=== PATIENT | female | born 1945 | race Caucasian/White ===

== ENCOUNTER → 2016-06-10 | Outpatient (CLI) | payer MEDICARE ==
--- NOTE | 2016-06-10 14:58 | XR ---
EXAMINATION TYPE: XR chest 2V DATE OF EXAM: 06/10/2016 10:00 AM COMPARISON: NONE HISTORY: Pulmonary embolism, COPD, preop TECHNIQUE: Frontal and lateral views of the chest are obtained. FINDINGS: There is no focal air space opacity, pleural effusion, or pneumothorax seen. The cardiac silhouette size is within normal limits. Patient is rotated. Chronic left pleural reaction. Surgical clips in the left upper quadrant. The osseous structures are intact. IMPRESSION: No acute cardiopulmonary process.
== END | disposition home or self-care (01) ==
LOC: RADXRMAIN 09:38
PROVIDERS: ATTEND Internal Medicine
DX: Z86.711 Personal history of pulmonary embolism (principal)
CPT/HCPCS: 71020

== ENCOUNTER → 2016-08-24 | Outpatient (CLI) | payer MEDICARE ==
[~2016-08-24] MED LIST: DENOSUMAB 60 MG/ML 1 ML SYRINGE SQ ONE
[2016-08-24 09:02] VITALS: BP 120/48; PULSE 84; RESP 16; TEMP 97.8
== END ==
LOC: PROCWHC3 08:32
PROVIDERS: ATTEND Family Medicine
DX: M81.0 Age-related osteoporosis without current pathological fracture (principal)
CPT/HCPCS: 96372; J0897

== ENCOUNTER 2016-09-20 11:17 | Inpatient (IN) | payer MEDICARE ==
--- NOTE | 2016-09-20 12:11 | ED ---
General Adult HPI - General Chief complaint: Weakness Stated complaint: KOREY Time Seen by Provider: 09/20/16 11:30 Source: EMS, RN notes reviewed Mode of arrival: EMS Limitations: no limitations - History of Present Illness Initial comments: This is a 71-year-old female presents emergency Department with her because she has been getting weaker and weaker and over the last few days she has been unable to hold herself up and she slide to the floor. Patient also is occasionally confused about what day it is according to which is something he believes to be a recent development. Patient has no complaints of headache she denies any numbness or focal weakness. Patient denies any chest pain palpitations difficulty breathing or shortness of breath. Patient denies abdominal pain. Patient denies nausea vomiting diarrhea. Patient denies any injury with any of her collapses. Patient states she always to slice out of the chair and is unable to get up. Patient denies any lightheadedness dizziness or near syncopal episode. Patient denies any recent injury or trauma. states the main reason she is coming in is because she is just getting weaker and sleeping all the time and again being somewhat confused. - Related Data Home Medications Medication Instructions Recorded Confirmed Aspirin 81 mg PO DAILY 10/09/13 09/20/16 clonazePAM [KlonoPIN] 0.5 mg PO BID PRN 10/09/13 09/20/16 sitaGLIPtin [Januvia] 100 mg PO DAILY 10/09/13 09/20/16 Buprenorphine [Butrans 15 MCG/HR] 1 patch TRANSDERM TH 11/27/15 09/20/16 DULoxetine HCL [Cymbalta] 30 mg PO DAILY 11/27/15 09/20/16 Furosemide [Lasix] 40 mg PO DAILY 11/27/15 09/20/16 Pregabalin [Lyrica] 200 mg PO BID 11/27/15 09/20/16 rOPINIRole HCL [Requip] 1 mg PO HS 11/27/15 09/20/16 Insulin Glargine [Lantus] 70 unit SQ HS 11/28/15 09/20/16 Calcium Carbonate [Calcium] 600 mg PO AC-LUNCH 05/12/16 09/20/16 Insulin Lispro [humaLOG Kwikpen] See Protocol SQ AC-TID 05/12/16 09/20/16 Multivits-Min/Iron/FA/Lutein 1 tab PO HS 05/12/16 09/20/16 [Centrum Silver Women Tablet] Potassium Chloride [Klor-Con 10 meq PO DAILY 05/12/16 09/20/16 Sprinkle] Rivaroxaban [Xarelto] 20 mg PO HS 05/12/16 09/20/16 Sennosides-Docusate Sodium 2 tab PO HS 05/12/16 09/20/16 [Senokot-S] Allopurinol [Zyloprim] 100 mg PO DAILY 09/20/16 09/20/16 Ciprofloxacin HCl [Cipro] 500 mg PO BID 09/20/16 09/20/16 Levothyroxine Sodium [Synthroid] 100 mcg PO DAILY 09/20/16 09/20/16 Metoprolol Succinate [Toprol XL] 50 mg PO DAILY 09/20/16 09/20/16 Omeprazole [PriLOSEC] 20 mg PO DAILY 09/20/16 09/20/16 Allergies Allergy/AdvReac Type Severity Reaction Status Date / Time iodine Allergy Unknown Verified 09/20/16 11:29 Review of Systems ROS Statement: Those systems with pertinent positive or pertinent negative responses have been documented in the HPI. ROS Other: All systems not noted in ROS Statement are negative. 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 She was a tobacco smoker and stopped several years ago. She denies any significant alcohol or recreational drug use. Used to work in. retail sales. She has no experience her extensive travels. No animals in the home.. Smoking Status: Former smoker Past Alcohol Use History: None Reported Past Drug Use History: None Reported - Past Family History Son(s) Additional Family Medical History / Comment(s): She relates that her parents of old age her mother was about 90 father was 88, without sniffing and medical troubles. She does relate that her son committed suicide but her daughter is quite healthy. General Exam - General Exam Comments Initial Comments: GENERAL: Patient is well-developed and well-nourished. Patient is nontoxic and well- hydrated and is in no acute distress. ENT: Neck is soft and supple. No significant lymphadenopathy is noted. Oropharynx is clear. Moist mucous membranes. Neck has full range of motion without eliciting any pain. EYES: The sclera were anicteric and conjunctiva were pink and moist. Extraocular movements were intact and pupils were equal round and reactive to light. Eyelids were unremarkable. PULMONARY: Unlabored respirations. Good breath sounds bilaterally. No audible rales rhonchi or wheezing was noted. CARDIOVASCULAR: There is a regular rate and rhythm without any murmurs gallops or rubs. ABDOMEN: Patient is morbidly obese abdomen is nontender.. No palpable organomegaly was noted. There is no palpable pulsatile mass. SKIN: Skin is clear with no lesions or rashes and otherwise unremarkable. NEUROLOGIC: Patient is alert and oriented x3. Cranial nerves II through XII are grossly intact. Motor and sensory are also intact. Normal speech, volume and content. Symmetrical smile. MUSCULOSKELETAL: Normal extremities with adequate strength and full range of motion. No lower extremity swelling or edema. No calf tenderness. LYMPHATICS: No significant lymphadenopathy is noted PSYCHIATRIC: Normal psychiatric evaluation. Limitations: no limitations Course Vital Signs 09/20/16 09/20/16 09/20/16 11:26 13:29 14:00 Temperature 97.9 F Pulse Rate 89 86 87 Respiratory 20 18 16 Rate Blood Pressure 116/53 128/58 122/63 O2 Sat by Pulse 99 93 L 93 L Oximetry Medical Decision Making - Medical Decision Making EKG shows normal sinus rhythm at 90 bpm TN interval is on a 64 QRS is 102 QT interval 400 QTC is 489. Patient's EKG shows no ST segment elevation or depression or T wave abnormalities are noted Chest x-ray shows right upper lobe pneumonia. When I spoke with the patient about the pneumonia patient stated that she was coughing quite a bit lately. I placed the patient on Levaquin for the pneumonia - Lab Data Result diagrams: 09/20/16 12:48 04/18/17 12:48 Lab Results 09/20/16 09/20/16 09/20/16 Range/Units 12:48 12:48 12:48 WBC 15.5 H (3.8-10.6) k/uL RBC 4.54 (3.80-5.40) m/uL Hgb 11.4 (11.4-16.0) gm/dL Hct 39.3 (34.0-46.0) % MCV 86.7 (80.0-100.0) fL MCH 25.1 (25.0-35.0) pg MCHC 29.0 L (31.0-37.0) g/dL RDW 20.6 H (11.5-15.5) % Plt Count 268 (150-450) k/uL Neutrophils % 70 % Lymphocytes % 18 % Monocytes % 5 % Eosinophils % 5 % Basophils % 1 % Neutrophils # 10.8 H (1.3-7.7) k/uL Lymphocytes # 2.7 (1.0-4.8) k/uL Monocytes # 0.7 (0-1.0) k/uL Eosinophils # 0.8 H (0-0.7) k/uL Basophils # 0.1 (0-0.2) k/uL Hypochromasia Marked Poikilocytosis Slight Anisocytosis Moderate Microcytosis Slight PT 13.6 H (9.0-12.0) sec INR 1.4 (<1.1) APTT 31.9 H (22.0-30.0) sec Sodium 140 (137-145) mmol/L Potassium 3.7 (3.5-5.1) mmol/L Chloride 105 (98-107) mmol/L Carbon Dioxide 28 (22-30) mmol/L Anion Gap 7 mmol/L BUN 14 (7-17) mg/dL Creatinine 0.92 (0.52-1.04) mg/dL Est GFR (MDRD) Af Amer >60 (>60 ml/min/1.73 sqM) Est GFR (MDRD) Non-Af >60 (>60 ml/min/1.73 sqM) Glucose 235 H (74-99) mg/dL Plasma Lactic Acid Gee (0.7-2.0) mmol/L Calcium 9.1 (8.4-10.2) mg/dL Magnesium 2.5 H (1.6-2.3) mg/dL Total Bilirubin 0.8 (0.2-1.3) mg/dL AST 54 H (14-36) U/L ALT 36 (9-52) U/L Alkaline Phosphatase 93 (38-126) U/L Total Creatine Kinase (30-135) U/L CK-MB (CK-2) (0.0-2.4) ng/mL CK-MB (CK-2) Rel Index Troponin I (0.000-0.034) ng/mL NT-Pro-B Natriuret Pep pg/mL Total Protein 6.6 (6.3-8.2) g/dL Albumin 3.3 L (3.5-5.0) g/dL TSH 1.120 (0.465-4.680) mIU/L Free T4 1.70 (0.78-2.19) ng/dL Urine Color Urine Appearance (Clear) Urine pH (5.0-8.0) Ur Specific Belle (1.001-1.035) Urine Protein (Negative) Urine Glucose (UA) (Negative) Urine Ketones (Negative) Urine Blood (Negative) Urine Nitrite (Negative) Urine Bilirubin (Negative) Urine Urobilinogen (<2.0) mg/dL Ur Leukocyte Esterase (Negative) Urine Opiates Screen (NotDetected) Ur Oxycodone Screen (NotDetected) Urine Methadone Screen (NotDetected) Ur Propoxyphene Screen (NotDetected) Ur Barbiturates Screen (NotDetected) U Tricyclic Antidepress (NotDetected) Ur Phencyclidine Scrn (NotDetected) Ur Amphetamines Screen (NotDetected) U Methamphetamines Scrn (NotDetected) U Benzodiazepines Scrn (NotDetected) Urine Cocaine Screen (NotDetected) U Marijuana (THC) Screen (NotDetected) Serum Alcohol <10 mg/dL 09/20/16 09/20/16 09/20/16 Range/Units 12:48 12:48 12:48 WBC (3.8-10.6) k/uL RBC (3.80-5.40) m/uL Hgb (11.4-16.0) gm/dL Hct (34.0-46.0) % MCV (80.0-100.0) fL MCH (25.0-35.0) pg MCHC (31.0-37.0) g/dL RDW (11.5-15.5) % Plt Count (150-450) k/uL Neutrophils % % Lymphocytes % % Monocytes % % Eosinophils % % Basophils % % Neutrophils # (1.3-7.7) k/uL Lymphocytes # (1.0-4.8) k/uL Monocytes # (0-1.0) k/uL Eosinophils # (0-0.7) k/uL Basophils # (0-0.2) k/uL Hypochromasia Poikilocytosis Anisocytosis Microcytosis PT (9.0-12.0) sec INR (<1.1) APTT (22.0-30.0) sec Sodium (137-145) mmol/L Potassium (3.5-5.1) mmol/L Chloride (98-107) mmol/L Carbon Dioxide (22-30) mmol/L Anion Gap mmol/L BUN (7-17) mg/dL Creatinine (0.52-1.04) mg/dL Est GFR (MDRD) Af Amer (>60 ml/min/1.73 sqM) Est GFR (MDRD) Non-Af (>60 ml/min/1.73 sqM) Glucose (74-99) mg/dL Plasma Lactic Acid Gee 1.2 (0.7-2.0) mmol/L Calcium (8.4-10.2) mg/dL Magnesium (1.6-2.3) mg/dL Total Bilirubin (0.2-1.3) mg/dL AST (14-36) U/L ALT (9-52) U/L Alkaline Phosphatase (38-126) U/L Total Creatine Kinase 436 H (30-135) U/L CK-MB (CK-2) 1.7 (0.0-2.4) ng/mL CK-MB (CK-2) Rel Index 0.4 Troponin I <0.012 (0.000-0.034) ng/mL NT-Pro-B Natriuret Pep 669 pg/mL Total Protein (6.3-8.2) g/dL Albumin (3.5-5.0) g/dL TSH (0.465-4.680) mIU/L Free T4 (0.78-2.19) ng/dL Urine Color Urine Appearance (Clear) Urine pH (5.0-8.0) Ur Specific Belle (1.001-1.035) Urine Protein (Negative) Urine Glucose (UA) (Negative) Urine Ketones (Negative) Urine Blood (Negative) Urine Nitrite (Negative) Urine Bilirubin (Negative) Urine Urobilinogen (<2.0) mg/dL Ur Leukocyte Esterase (Negative) Urine Opiates Screen (NotDetected) Ur Oxycodone Screen (NotDetected) Urine Methadone Screen (NotDetected) Ur Propoxyphene Screen (NotDetected) Ur Barbiturates Screen (NotDetected) U Tricyclic Antidepress (NotDetected) Ur Phencyclidine Scrn (NotDetected) Ur Amphetamines Screen (NotDetected) U Methamphetamines Scrn (NotDetected) U Benzodiazepines Scrn (NotDetected) Urine Cocaine Screen (NotDetected) U Marijuana (THC) Screen (NotDetected) Serum Alcohol mg/dL 09/20/16 Range/Units 13:50 WBC (3.8-10.6) k/uL RBC (3.80-5.40) m/uL Hgb (11.4-16.0) gm/dL Hct (34.0-46.0) % MCV (80.0-100.0) fL MCH (25.0-35.0) pg MCHC (31.0-37.0) g/dL RDW (11.5-15.5) % Plt Count (150-450) k/uL Neutrophils % % Lymphocytes % % Monocytes % % Eosinophils % % Basophils % % Neutrophils # (1.3-7.7) k/uL Lymphocytes # (1.0-4.8) k/uL Monocytes # (0-1.0) k/uL Eosinophils # (0-0.7) k/uL Basophils # (0-0.2) k/uL Hypochromasia Poikilocytosis Anisocytosis Microcytosis PT (9.0-12.0) sec INR (<1.1) APTT (22.0-30.0) sec Sodium (137-145) mmol/L Potassium (3.5-5.1) mmol/L Chloride (98-107) mmol/L Carbon Dioxide (22-30) mmol/L Anion Gap mmol/L BUN (7-17) mg/dL Creatinine (0.52-1.04) mg/dL Est GFR (MDRD) Af Amer (>60 ml/min/1.73 sqM) Est GFR (MDRD) Non-Af (>60 ml/min/1.73 sqM) Glucose (74-99) mg/dL Plasma Lactic Acid Gee (0.7-2.0) mmol/L Calcium (8.4-10.2) mg/dL Magnesium (1.6-2.3) mg/dL Total Bilirubin (0.2-1.3) mg/dL AST (14-36) U/L ALT (9-52) U/L Alkaline Phosphatase (38-126) U/L Total Creatine Kinase (30-135) U/L CK-MB (CK-2) (0.0-2.4) ng/mL CK-MB (CK-2) Rel Index Troponin I (0.000-0.034) ng/mL NT-Pro-B Natriuret Pep pg/mL Total Protein (6.3-8.2) g/dL Albumin (3.5-5.0) g/dL TSH (0.465-4.680) mIU/L Free T4 (0.78-2.19) ng/dL Urine Color Yellow Urine Appearance Clear (Clear) Urine pH 7.0 (5.0-8.0) Ur Specific Belle 1.007 (1.001-1.035) Urine Protein Negative (Negative) Urine Glucose (UA) Negative (Negative) Urine Ketones Negative (Negative) Urine Blood Negative (Negative) Urine Nitrite Negative (Negative) Urine Bilirubin Negative (Negative) Urine Urobilinogen <2.0 (<2.0) mg/dL Ur Leukocyte Esterase Negative (Negative) Urine Opiates Screen Not Detected (NotDetected) Ur Oxycodone Screen Not Detected (NotDetected) Urine Methadone Screen Not Detected (NotDetected) Ur Propoxyphene Screen Not Detected (NotDetected) Ur Barbiturates Screen Not Detected (NotDetected) U Tricyclic Antidepress Not Detected (NotDetected) Ur Phencyclidine Scrn Not Detected (NotDetected) Ur Amphetamines Screen Not Detected (NotDetected) U Methamphetamines Scrn Not Detected (NotDetected) U Benzodiazepines Scrn Not Detected (NotDetected) Urine Cocaine Screen Not Detected (NotDetected) U Marijuana (THC) Screen Not Detected (NotDetected) Serum Alcohol mg/dL Disposition Clinical Impression: Pneumonia, Generalized weakness Disposition: ADMITTED IP TO THIS HOSP Referrals: Patric Richard MD [Primary Care Provider] - 1-2 days Time of Disposition: 15:10
--- NOTE | 2016-09-20 13:19 | CT ---
EXAMINATION TYPE: CT brain wo con DATE OF EXAM: 09/20/2016 1:12 PM COMPARISON: NONE HISTORY: Frequent falls CT DLP: [address] of the brain was performed. The ventricles, basal cisterns and sulci overlying the cerebral convexities demonstrate mild enlargem ent. There is no evidence for intracranial hemorrhage or sulcal effacement. There is decreased attenuation about the periventricular white matter and deep white matter of both c erebral hemispheres, compatible with chronic small vessel ischemia. Differential diagnosis does inclu de demyelination. No mass effects are seen.No midline shift. Osseous calvarium is intact. If symptoms persist consider MRI. IMPRESSION: 1. Age related atrophic and chronic small vessel ischemic change without acute intracranial process s een at this time.
[2016-09-20 13:35] LABS: ALT 36 U/L (9-52); AST 54 U/L (14-36); Alcohol <10 mg/dL; Alkaline Phosphatase 93 U/L (38-126); Anion Gap 7 mmol/L; Blood Urea Nitrogen 14 mg/dL (7-17); Calcium 9.1 mg/dL (8.4-10.2); Carbon Dioxide 28 mmol/L (22-30); Chloride 105 mmol/L (98-107); Glucose 235 mg/dL (74-99); Magnesium 2.5 mg/dL (1.6-2.3); Non-African American GFR(MDRD) >60 (>60 ml/min/1.73 sqM); Potassium 3.7 mmol/L (3.5-5.1); Sodium 140 mmol/L (137-145); Total Bilirubin 0.8 mg/dL (0.2-1.3); Total Protein 6.6 g/dL (6.3-8.2)
--- NOTE | 2016-09-20 13:38 | XR ---
EXAMINATION TYPE: XR chest 2V DATE OF EXAM: 09/20/2016 1:13 PM COMPARISON: Prior chest x-ray 10 June 2016 HISTORY: Weakness, COPD TECHNIQUE: Frontal and lateral views of the chest are obtained. FINDINGS: Heart size may be at least in part accentuated by rotation. Interstitium is increased. The re is no evident pneumothorax or pleural effusion. Central vascularity is mildly prominent. Increased lung volumes may be indicative of underlying COPD. Increased density somewhat greater in the right u pper lobe, there may be associated airspace disease. IMPRESSION: Findings could represent congestive heart failure, pneumonia is not excluded. Follow-up is recommended.
[2016-09-20 13:42] LABS: Creatine Kinase 436 U/L (30-135)
[2016-09-20 13:50] LABS: INR 1.4 (<1.1); Partial Thromboplastin Time 31.9 sec (22.0-30.0); Prothrombin Time 13.6 sec (9.0-12.0)
[2016-09-20 13:54] LABS: Creatine Kinase MB 1.7 ng/mL (0.0-2.4); Troponin I <0.012 ng/mL (0.000-0.034)
[2016-09-20 14:04] LABS: Appearance,Urine Clear (Clear); Bilirubin,Urine Negative (Negative); Glucose,Urine (UA) Negative (Negative); Ketones,Urine Negative (Negative); Leukocyte Esterase,Urine Negative (Negative); Nitrite,Urine Negative (Negative); Protein,Urine Negative (Negative); Specific Gravity,Urine 1.007 (1.001-1.035); UA Billing (MACRO vs. MICRO) CHEM; Urobilinogen,Urine <2.0 mg/dL (<2.0)
[2016-09-20 14:11] LABS: Anisocytosis Moderate; Basophils # (A) 0.1 k/uL (0-0.2); Basophils % (A) 1 %; CH 24.8; CHCM 28.8; Eosinophils # (A) 0.8 k/uL (0-0.7); Eosinophils % (A) 5 %; HCT 39.3 % (34.0-46.0); HDW 3.71; HGB 11.4 gm/dL (11.4-16.0); Hypochromasia Marked; Luc # (Auto) 0.37; Luc % (Auto) 2; Lymphocytes # (A) 2.7 k/uL (1.0-4.8); Lymphocytes % (A) 18 %; MCH 25.1 pg (25.0-35.0); MCV 86.7 fL (80.0-100.0); Mean Platelet Volume 8.5; Microcytosis Slight; Monocytes # (A) 0.7 k/uL (0-1.0); Monocytes % (A) 5 %; Neutrophils # (A) 10.8 k/uL (1.3-7.7); Neutrophils % (A) 70 %; Poikilocytosis Slight; RBC 4.54 m/uL (3.80-5.40); RDW 20.6 % (11.5-15.5); WBC 15.5 k/uL (3.8-10.6); WBC (Perox) 15.39
[2016-09-20] MEDS ORDERED: LEVOFLOXACIN 750MG-D5W PMX 750 MG in DEXTROSE/WATER 1 150ML.BAG IVPB STA (15:04)
[2016-09-20] MEDS ORDERED: PNEUMONIA PROTOCOL UTILIZED 1 EACH MISC PO PRN (15:11)
[2016-09-20 15:58] LABS: Glucose,Whole Blood 177 mg/dL (75-99)
[2016-09-20 16:57] LABS: Glucose,Whole Blood 177 mg/dL (75-99)
[2016-09-20] MEDS: INSULIN LISPRO (humaLOG) 300 UNIT/3 ML VIAL SQ SCH ×2 (17:36→23:13)
[2016-09-20 20:04] VITALS: BMI 51.3
[2016-09-20 20:16] LABS: Hemoglobin A1C 9.3 % (4.2-6.1)
[2016-09-20 21:00] LABS: Glucose,Whole Blood 210 mg/dL (75-99)
[2016-09-20] MEDS ORDERED: LEVOFLOXACIN 750MG-D5W PMX 750 MG in DEXTROSE/WATER 1 150ML.BAG IVPB SCH (21:00)
[2016-09-20] MEDS: INSULIN GLARGINE 100 UNIT/ML 10 ML VIAL SQ SCH (23:14)
[2016-09-20] MEDS: SENNOSIDES-DOCUSATE SODIUM 1 EACH TAB PO SCH (23:15)
[2016-09-20] MEDS: MULTIVITAMINS, THERA 1 EACH TAB PO SCH (23:15)
[2016-09-20] MEDS: PREGABALIN 100 MG CAP PO SCH (23:15)
[2016-09-20] MEDS: RIVAROXABAN 10 MG TAB PO SCH (23:16)
[2016-09-21] MEDS: LEVOTHYROXINE 100 MCG TAB PO SCH (05:50)
[2016-09-21 07:26] LABS: Glucose,Whole Blood 139 mg/dL (75-99)
[2016-09-21] MEDS: clonazePAM 0.5 MG TAB PO PRN (07:44)
[2016-09-21] MEDS: PANTOPRAZOLE 40 MG TABLET PO SCH (07:45)
[2016-09-21] MEDS: LINAGLIPTIN 5 MG TABLET PO SCH (07:45)
[2016-09-21] MEDS: DULoxetine HCL 30 MG CAPSULE.DR PO SCH (07:45)
[2016-09-21] MEDS: PREGABALIN 100 MG CAP PO SCH ×2 (07:45→21:29)
[2016-09-21] MEDS: ASPIRIN 81 MG CHEW PO SCH (07:45)
[2016-09-21] MEDS: ALLOPURINOL 100 MG TAB PO SCH (07:46)
[2016-09-21] MEDS: INSULIN LISPRO (humaLOG) 300 UNIT/3 ML VIAL SQ SCH ×4 (07:46→21:28)
[2016-09-21] MEDS: POTASSIUM CHLORIDE ER 10 MEQ TAB.ER.PRT PO SCH (07:48)
[2016-09-21] MEDS: METOPROLOL SUCCINATE (ER) 50 MG TAB.ER.24H PO SCH (07:48)
[2016-09-21] MEDS ORDERED: FUROSEMIDE 40 MG TAB PO SCH (09:00)
--- NOTE | 2016-09-21 11:28 | XR ---
EXAMINATION TYPE: XR chest 2V DATE OF EXAM: 09/21/2016 9:11 AM COMPARISON: Prior chest x-ray 20 September 2016 HISTORY: Pneumonia, COPD, weakness TECHNIQUE: Frontal and lateral views of the chest are obtained. FINDINGS: Findings are similar. Patient is rotated. There may be airspace disease right upper lobe. Heart is likely enlarged. No pneumothorax or pleural effusion. IMPRESSION: Exam is technically limited likely due to patient body habitus. Correlate for right uppe r lobe pneumonia, there may be a component of pulmonary venous hypertension and interstitial edema. F ollow-up recommended.
[2016-09-21 11:36] LABS: Glucose,Whole Blood 229 mg/dL (75-99)
[2016-09-21] MEDS: CALCIUM CARB-VIT D 500MG-200UN 1 EACH TAB PO SCH (12:54)
--- NOTE | 2016-09-21 15:22 | P.CNPUL ---
History of Present Illness Consult date: 09/21/16 Reason for consult: dyspnea, cough, pneumonia Chief complaint: Weakness, pneumonia History of present illness: This is a 71-year-old obese female who we know well from our practice. She typically sees Dr. Rosas in our office. The patient comes in because of weakness. She apparently been falling at home. Has significant bruising to the right upper extremity. In addition, she doesn't admit to difficulty breathing. No fever no chills. No nausea or vomiting. No chest pain or chest discomfort. In the emergency room she was evaluated and found to have a possible right upper lobe pneumonia. She is feeling a bit better today. Not coughing up any phlegm. No fever no chills. No chest pain. Her big complaint was that she's been falling at home and has significant bruising and ecchymosis to the right upper extremity. Review of Systems A 12 point review of system is positive for some shortness of breath. Some cough. Not producing any phlegm. Mild wheezing. The big issue is some weakness and falling. She does have some bruising and ecchymosis to the right upper extremity. 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 She was a tobacco smoker and stopped several years ago. She denies any significant alcohol or recreational drug use. Used to work in. retail sales. She has no experience her extensive travels. No animals in the home.. Smoking Status: Former smoker Past Alcohol Use History: None Reported Past Drug Use History: None Reported - Past Family History Son(s) Family Medical History: Unable to Obtain Additional Family Medical History / Comment(s): She relates that her parents of old age her mother was about 90 father was 88, without sniffing and medical troubles. She does relate that her son committed suicide but her daughter is quite healthy. Medications and Allergies Home Medications Medication Instructions Recorded Confirmed Type Aspirin 81 mg PO DAILY 10/09/13 09/20/16 History clonazePAM [KlonoPIN] 0.5 mg PO BID PRN 10/09/13 09/20/16 History sitaGLIPtin [Januvia] 100 mg PO DAILY 10/09/13 09/20/16 History Buprenorphine [Butrans 15 MCG/HR] [facility] 11/27/15 09/20/16 History DULoxetine HCL [Cymbalta] 30 mg PO DAILY 11/27/15 09/20/16 History Furosemide [Lasix] 40 mg PO DAILY 11/27/15 09/20/16 History Pregabalin [Lyrica] 200 mg PO BID 11/27/15 09/20/16 History rOPINIRole HCL [Requip] 1 mg PO HS 11/27/15 09/20/16 History Insulin Glargine [Lantus] 70 unit SQ HS 11/28/15 09/20/16 History Calcium Carbonate [Calcium] 600 mg PO AC-LUNCH 05/12/16 09/20/16 History Insulin Lispro [humaLOG Kwikpen] See Protocol SQ AC-TID 05/12/16 09/20/16 History Multivits-Min/Iron/FA/Lutein 1 tab PO HS 05/12/16 09/20/16 History [Centrum Silver Women Tablet] Potassium Chloride [Klor-Con 10 meq PO DAILY 05/12/16 09/20/16 History Sprinkle] Rivaroxaban [Xarelto] 20 mg PO HS 05/12/16 09/20/16 History Sennosides-Docusate Sodium 2 tab PO HS 05/12/16 09/20/16 History [Senokot-S] Allopurinol [Zyloprim] 100 mg PO DAILY 09/20/16 09/20/16 History Ciprofloxacin HCl [Cipro] 500 mg PO BID 09/20/16 09/20/16 History Levothyroxine Sodium [Synthroid] 100 mcg PO DAILY 09/20/16 09/20/16 History Metoprolol Succinate [Toprol XL] 50 mg PO DAILY 09/20/16 09/20/16 History Omeprazole [PriLOSEC] 20 mg PO DAILY 09/20/16 09/20/16 History Allergies Allergy/AdvReac Type Severity Reaction Status Date / Time iodine Allergy Unknown Verified 09/20/16 11:29 Physical Exam Osteopathic Statement: *. No significant issues noted on an osteopathic structural exam other than those noted in the History and Physical/Consult. Vitals: Vital Signs Temp Pulse Pulse Resp BP BP BP 09/21/16 15:00 97.6 F 101 H 18 109/58 09/21/16 08:00 18 09/21/16 07:00 97.4 F L 104 H 18 99/53 09/20/16 23:00 96.2 F L 100 19 112/62 09/20/16 16:52 99/59 09/20/16 16:50 16 09/20/16 16:37 97.0 F L 86 16 81/53 09/20/16 15:20 97.9 F 87 16 106/54 Pulse Ox 09/21/16 15:00 91 L 09/21/16 08:00 09/21/16 07:00 93 L 09/20/16 23:00 91 L 09/20/16 16:52 09/20/16 16:50 09/20/16 16:37 90 L 09/20/16 15:20 94 L Intake and Output 09/21/16 09/21/16 09/21/16 06:59 14:59 22:59 Intake Total 240 Output Total 250 Balance -10 Intake: Oral 240 Output: Urine 250 Other: Voiding Method Bedside Commode # Voids 1 Weight 119.295 kg Patient Weight 09/22/16 06:59 Weight 119.295 kg No acute distress, oriented 3. HEENT examination is grossly unremarkable. Membranes are moist. No oral lesions. Neck supple. Full range of motion. No adenopathy or thyromegaly. Cardiovascular examination reveals regular rhythm rate. Heart sounds are distant. No murmur. S1 and S2 normal. Lungs reveal some expiratory wheezes. No crackles. No rhonchi. Breath sounds are diminished. Abdomen is obese. Bowel sounds are heard. Extremities are intact. Brief neurologic examination nonfocal. Skin without rash or lesions. Results - Laboratory Findings CBC and BMP: 09/20/16 12:48 09/20/16 12:48 PT/INR, D-dimer PT 13.6 sec (9.0-12.0) H 09/20/16 12:48 INR 1.4 (<1.1) 09/20/16 12:48 Abnormal lab findings: Abnormal Labs 09/20/16 09/20/16 09/20/16 15:52 16:51 17:10 POC Glucose (mg/dL) 177 H 177 H Hemoglobin A1c 9.3 H 09/20/16 09/21/16 09/21/16 20:59 07:24 11:34 POC Glucose (mg/dL) 210 H 139 H 229 H Hemoglobin A1c - Diagnostic Findings Chest x-ray: image reviewed (Chest x-ray labs and medications are all reviewed. The patient was interviewed and examined.) Assessment and Plan (1) Generalized weakness Status: Acute (2) Pneumonia Status: Acute (3) Diabetes mellitus Status: Acute (4) Fall Status: Acute (5) Hypertension Status: Acute (6) Morbid obesity Status: Acute (7) Weakness Status: Acute (8) History of DVT (deep vein thrombosis) Status: Chronic Plan: Plan dated 09/21/2016 The patient's medications are reviewed. X-rays labs are reviewed. Additional recommendations suggestions are forthcoming. We'll make sure she is on appropriate antibiotics. She should also be on bronchodilators and certainly steroids when her given her bronchospasm. Again we'll continue to follow. Time with Patient: Greater than 30
[2016-09-21] MEDS ORDERED: IPRATROPIUM-ALBUTEROL 3 ML NEB INHALATION PRN (15:23)
[2016-09-21] MEDS ORDERED: ONDANSETRON 4 MG/2 ML VIAL IVP PRN (16:09)
[2016-09-21] MEDS: methylPREDNISolone SOD SUCCI 40 MG/ML 1 ML VIAL IV SCH ×2 (16:24→23:07)
[2016-09-21] MEDS: IPRATROPIUM-ALBUTEROL 3 ML NEB INHALATION SCH ×2 (16:44→20:53)
[2016-09-21 17:17] LABS: Glucose,Whole Blood 238 mg/dL (75-99)
[2016-09-21] MEDS: SYMBICORT 160-4.5 MCG INHALER INHALATION SCH (20:53)
[2016-09-21 21:01] LABS: Glucose,Whole Blood 351 mg/dL (75-99)
[2016-09-21] MEDS: FUROSEMIDE 10 MG/ML 4 ML VIAL IV SCH (21:27)
[2016-09-21] MEDS: INSULIN GLARGINE 100 UNIT/ML 10 ML VIAL SQ SCH (21:28)
[2016-09-21] MEDS: MULTIVITAMINS, THERA 1 EACH TAB PO SCH (21:29)
[2016-09-21] MEDS: SENNOSIDES-DOCUSATE SODIUM 1 EACH TAB PO SCH (21:29)
[2016-09-21] MEDS: RIVAROXABAN 10 MG TAB PO SCH (21:29)
[2016-09-22] MEDS: FUROSEMIDE 10 MG/ML 4 ML VIAL IV SCH ×3 (05:35→20:30)
[2016-09-22] MEDS: LEVOTHYROXINE 100 MCG TAB PO SCH (05:35)
[2016-09-22 07:41] LABS: Glucose,Whole Blood 389 mg/dL (75-99)
--- NOTE | 2016-09-22 07:46 | HP ---
DATE OF ADMISSION: 09/20/2016 PRESENTING COMPLAINT: Short of breath. HISTORY OF PRESENTING COMPLAINT: This is a pleasant 71-year-old patient of Dr. Richard with extensive medical history including stable conditions include diabetes, hyperlipidemia, hypertension, rheumatoid arthritis, hypothyroid. Patient actually fell out of bed and had bruising on the right upper extremity, but patient also noticed to be short of breath, wheezing, lower extremity edema, pain normally does use a wheelchair to get about, unable to transfer herself. REVIEW OF SYSTEMS: CONSTITUTIONAL: Tired. HEENT: None. RESPIRATORY: Short of breath, some cough, some wheezing. CARDIOVASCULAR: No chest pain, edema present. GASTROINTESTINAL: None. GENITOURINARY: None. MUSCULOSKELETAL: Some pain in the joints. DERMATOLOGICAL: Bruising of the right upper extremity. HEMATOLOGICAL: As above. LYMPHATICS: None. PSYCHIATRY: None. NEUROLOGICAL: None. 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 PAST SURGICAL HISTORY: Appendectomy, , cholecystectomy, carpal tunnel release, rotator cuff. Past psych history of depression. SOCIAL HISTORY: Patient is . Started smoking quite some time ago. No alcohol. FAMILY HISTORY: Both parents of old age and son committed suicide. HOME MEDICATIONS: 1. Humalog per protocol t.i.d. 2. Lantus 70 units subQ q.h.s. 3. Prilosec 20 mg p.o. daily. 4. Allopurinol 100 mg p.o. daily. 5. Januvia 100 mg p.o. daily. 6. Requip 1 mg p.o. q.h.s. 7. Senokot-S 2 tablets p.o. q.h.s. 8. Xarelto 20 mg q.h.s. 9. Synthroid 100 mcg p.o. daily. 10. Cipro 500 mg p.o. b.i.d. 11. Lyrica 200 mg p.o. b.i.d. 12. Potassium 10 mEq p.o. daily. 13. Toprol-XL 50 mg p.o. daily. 14. Klonopin 0.5 mg p.o. b.i.d. p.r.n. 15. Centrum Silver 1 tablet p.o. q.h.s. 16. Lasix 40 mg p.o. daily. 17. Cymbalta 30 mg p.o. daily. 18. Calcium 600 mg p.o. a.c. lunch. 19. Butrans 50 mcg 1 patch transdermal. 20. Aspirin 81 mg p.o. daily. Allergies to IODINE. On examination, temperature 97.9, pulse 89, respiration 20, blood pressure 106/53, pulse ox 99% on room air. GENERAL APPEARANCE: Morbidly obese, BMI 51.4, lying in bed, short of breath at rest normal. EYES: Pupils equal, conjunctivae normal. HEENT: Oral cavity normal. NECK: Short, thick, JVD unable to assess. Mass not palpable. Respiratory effort increased. Lungs diminished breath sounds and wheezing. CARDIOVASCULAR: First and second sounds normal. Edema present. ABDOMEN: Distended, soft. Liver and spleen not palpable. LYMPHATIC: No lymph nodes palpable in neck or axillae. PSYCHIATRY: Alert and oriented x3. Mood and affect normal. EXTREMITIES: Bruising of the right upper arm. INVESTIGATIONS: White count 15.5, hemoglobin 11.4. potassium 3.7, BUN 14, creatinine 0.92. Accu-Cheks are noted. UA negative. EKG normal sinus rhythm. Chest x-ray underpenetrated, could be some venous prominence. ASSESSMENT: 1. Acute chronic obstructive pulmonary disease exacerbation in an ex-smoker. 2. Possible cor pulmonale. 3. Element of obesity hypoventilation syndrome. 4. Morbidly obese, body mass index of 51.4. 5. Diabetes mellitus type 2, chronically on insulin. 6. Right upper extremity bruise secondary to a fall. 7. History of deep venous thrombosis on Xarelto. 8. Essential hypertension. 9. Rheumatoid arthritis. 10. Hypothyroidism. 11. History of splenectomy. PLAN: Patient was put on nebulized bronchodilators, will start the patient on IV Lasix. Accu-Cheks will be followed. Patient is also on IV Solu-Medrol. Other home medications are to continue. Pulmonary was consulted. Care was discussed with the patient. Patient will need at least a 2-night stay in the hospital for the above.
[2016-09-22] MEDS: IPRATROPIUM-ALBUTEROL 3 ML NEB INHALATION SCH ×4 (07:50→19:34)
[2016-09-22] MEDS: SYMBICORT 160-4.5 MCG INHALER INHALATION SCH ×3 (07:50→19:34)
[2016-09-22] MEDS: METOPROLOL SUCCINATE (ER) 50 MG TAB.ER.24H PO SCH (07:53)
[2016-09-22] MEDS: methylPREDNISolone SOD SUCCI 40 MG/ML 1 ML VIAL IV SCH ×3 (07:53→23:25)
[2016-09-22] MEDS: clonazePAM 0.5 MG TAB PO PRN ×2 (07:53→20:40)
[2016-09-22] MEDS: POTASSIUM CHLORIDE ER 10 MEQ TAB.ER.PRT PO SCH (07:54)
[2016-09-22] MEDS: DULoxetine HCL 30 MG CAPSULE.DR PO SCH (07:54)
[2016-09-22] MEDS: LINAGLIPTIN 5 MG TABLET PO SCH (07:54)
[2016-09-22] MEDS: ASPIRIN 81 MG CHEW PO SCH (07:54)
[2016-09-22] MEDS: INSULIN LISPRO (humaLOG) 300 UNIT/3 ML VIAL SQ SCH ×3 (07:55→18:14)
[2016-09-22] MEDS: PANTOPRAZOLE 40 MG TABLET PO SCH (07:55)
[2016-09-22] MEDS: ALLOPURINOL 100 MG TAB PO SCH (07:55)
[2016-09-22] MEDS ORDERED: BUPRENORPHINE TRANSDERM SCH ×3 (09:00→18:43)
[2016-09-22] MEDS: PREGABALIN 100 MG CAP PO SCH ×2 (09:50→20:15)
[2016-09-22 10:28] LABS: Glucose,Whole Blood 462 mg/dL (75-99)
[2016-09-22 10:28] LABS: Glucose,Whole Blood 483 mg/dL (75-99)
--- NOTE | 2016-09-22 11:02 | ECHOF ---
Referral Reason:pulm HTN MEASUREMENTS -------- HEIGHT: 152.4 cm WEIGHT: 125.2 kg BP: 110/57 IVSd: 1.2 cm (0.6 - 1.1) LVIDd: 3.7 cm (3.9 - 5.3) LVPWd: 1.3 cm (0.6 - 1.1) IVSs: 2.0 cm LVIDs: 2.2 cm LVPWs: 2.0 cm Ao Diam: 3.1 cm (2.0 - 3.7) AV Cusp: 1.5 cm (1.5 - 2.6) LA Diam: 3.7 cm (2.7 - 3.8) MV EXCURSION: 8.113 mm (> 18.000) MV EF SLOPE: 37 mm/s (70 - 150) EPSS: 3.0 cm MV E Gerardo: 0.92 m/s MV DecT: 141 ms MV A Gerardo: 0.96 m/s MV E/A Ratio: 0.95 AV maxP.13 mmHg AV meanP.49 mmHg RAP: 5.00 mmHg RVSP: 17.13 mmHg FINDINGS -------- Sinus rhythm. This was a technically good study. There is mild concentric left ventricular hypertrophy. Overall left ventricular systolic function is normal with, an EF between 55 - 60 %. The right ventricle is normal in size and function. The left atrium is normal in size. The right atrium is normal in size. Aortic valve is trileaflet and is mildly thickened. There is mild aortic stenosis present. Peak/mean gradient across the Aortic Valve is 14.13mmHg / 8.49mmHg. The mitral valve leaflets are mildly thickened. There is trace mitral regurgitation. Mild tricuspid regurgitation present. The right ventricular systolic pressure, as measured by Doppler, is 17.13mmHg. Pulmonic valve appears structurally normal. The aortic root size is normal. The pericardium is normal. CONCLUSIONS -------- 1. Sinus rhythm. 2. Peak/mean gradient across the Aortic Valve is 14.13mmHg / 8.49mmHg. 3. The mitral valve leaflets are mildly thickened. 4. There is trace mitral regurgitation. 5. Mild tricuspid regurgitation present. 6. The right ventricular systolic pressure, as measured by Doppler, is 17.13mmHg. 7. Pulmonic valve appears structurally normal. 8. The aortic root size is normal. 9. The pericardium is normal. 10. This was a technically good study. 11. There is mild concentric left ventricular hypertrophy. 12. Overall left ventricular systolic function is normal with, an EF between 55 - 60 %. 13. The right ventricle is normal in size and function. 14. The left atrium is normal in size. 15. The right atrium is normal in size. 16. Aortic valve is trileaflet and is mildly thickened. 17. There is mild aortic stenosis present. [employer] SERVICE TECHNICIAN: Adriana Chao RDCS
[2016-09-22 11:40] LABS: Glucose,Whole Blood 482 mg/dL (75-99)
[2016-09-22] MEDS: INSULIN REGULAR 100 UNIT in SODIUM CHLORIDE 0.9% 100 ML IV SCH ×4 (12:11→22:49)
[2016-09-22 12:53] LABS: Glucose,Whole Blood 507 mg/dL (75-99)
[2016-09-22] MEDS: CALCIUM CARB-VIT D 500MG-200UN 1 EACH TAB PO SCH (13:11)
[2016-09-22 13:14] LABS: Glucose,Whole Blood 438 mg/dL (75-99)
[2016-09-22 13:44] LABS: Glucose,Whole Blood 452 mg/dL (75-99)
[2016-09-22 14:33] LABS: Glucose,Whole Blood 432 mg/dL (75-99)
[2016-09-22 14:43] LABS: Glucose,Whole Blood 430 mg/dL (75-99)
[2016-09-22 15:17] LABS: Glucose,Whole Blood 425 mg/dL (75-99)
--- NOTE | 2016-09-22 15:27 | P.PN ---
Subjective 71-year-old female who we saw yesterday. The patient that was admitted with a diagnosis of right upper lobe pneumonia. She came in primarily because of weakness and falling. She has significant significant bruising to the right upper extremity. Chest x-ray clearly showed a right upper lobe infiltrate. She is feeling better today. Hopes to be able to be discharged home tomorrow. No fever no chills. Mildly short of breath. Not coughing up anything or much phlegm. Objective - Vital Signs Vital signs: Vital Signs Temp 97.6 F 09/22/16 07:00 Pulse 94 09/22/16 12:28 Resp 18 09/22/16 08:00 BP 93/55 09/22/16 07:00 Pulse Ox 92 L 09/22/16 07:00 Intake & Output 09/21/16 09/22/16 09/22/16 18:59 06:59 18:59 Intake Total 240 196.255 Output Total 500 Balance -260 196.255 Weight 119.295 kg 125.5 kg Intake: Intake, IV Titration 76.255 Amount Insulin Regular 100 unit 76.255 In Sodium Chloride 0.9% 100 ml @ Titrate IV .Q0M [facility] Rx#:[id number] Oral 240 120 Output: Urine 500 Other: Voiding Method Bedside Commode Bedside Commode # Voids 1 2 - Exam No acute distress, oriented 3. HEENT examination is grossly unremarkable. Mucous membranes are moist. No oral lesions. Neck supple. Full thyromegaly. Cardiovascular examination reveals distant heart sounds. S1-S2 normal. No S3- S4 murmur. Lungs reveal a few scattered mild rhonchi. No wheezes or crackles. Breath sounds are equal but somewhat diminished throughout. Abdomen is obese bowel sounds are heard. No masses. Extremities are intact. No cyanosis clubbing or edema. Neurologic examination is nonfocal Skin is without rash. - Labs CBC & Chem 7: 09/20/16 12:48 09/20/16 12:48 Labs: Abnormal Lab Results - Last 24 Hours (Table) 09/21/16 09/21/16 09/22/16 Range/Units 17:15 21:00 07:34 POC Glucose (mg/dL) 238 H 351 H 389 H (75-99) mg/dL 09/22/16 09/22/16 09/22/16 Range/Units 10:15 10:17 11:36 POC Glucose (mg/dL) 483 H 462 H 482 H (75-99) mg/dL 09/22/16 09/22/16 09/22/16 Range/Units 12:43 13:12 13:42 POC Glucose (mg/dL) 507 H 438 H 452 H (75-99) mg/dL 09/22/16 09/22/16 09/22/16 Range/Units 14:12 14:40 15:15 POC Glucose (mg/dL) 432 H 430 H 425 H (75-99) mg/dL Microbiology - Last 24 Hours (Table) 09/20/16 21:46 Gram Stain - Preliminary Abdomen Wound Culture - Preliminary Group D Enterococcus 09/20/16 17:58 Blood Culture - Preliminary Blood No Growth after 24 hours 09/20/16 17:10 Blood Culture - Preliminary Blood No Growth after 24 hours Assessment and Plan (1) Generalized weakness Status: Acute (2) Pneumonia Status: Acute (3) Diabetes mellitus Status: Acute (4) Fall Status: Acute (5) Hypertension Status: Acute (6) Morbid obesity Status: Acute (7) Weakness Status: Acute (8) History of DVT (deep vein thrombosis) Status: Chronic Plan: Plan dated 09/21/2016 The patient's medications are reviewed. X-rays labs are reviewed. Additional recommendations suggestions are forthcoming. We'll make sure she is on appropriate antibiotics. She should also be on bronchodilators and certainly steroids when her given her bronchospasm. Again we'll continue to follow. Plan dated 09/22/2016 The patient's x-rays and labs are reviewed from yesterday. Medications are reviewed and thought be appropriate. She may be discharged home tomorrow not sure. I will get a chest x-ray in the morning of 1 has not yet been ordered. Medications have been reviewed. Additional recommendations suggestions are forthcoming. Her overall prognosis is guarded. Time with Patient: Less than 30
[2016-09-22 15:52] LABS: Glucose,Whole Blood 406 mg/dL (75-99)
[2016-09-22 16:16] LABS: Glucose,Whole Blood 402 mg/dL (75-99)
[2016-09-22 16:48] LABS: Glucose,Whole Blood 363 mg/dL (75-99)
[2016-09-22 17:32] LABS: Glucose,Whole Blood 333 mg/dL (75-99)
[2016-09-22 17:44] LABS: Glucose,Whole Blood 334 mg/dL (75-99)
[2016-09-22 18:11] LABS: Glucose,Whole Blood 310 mg/dL (75-99)
[2016-09-22 18:42] LABS: Glucose,Whole Blood 287 mg/dL (75-99)
[2016-09-22 19:24] LABS: Glucose,Whole Blood 304 mg/dL (75-99)
[2016-09-22 19:43] LABS: Glucose,Whole Blood 332 mg/dL (75-99)
[2016-09-22] MEDS: MULTIVITAMINS, THERA 1 EACH TAB PO SCH (20:15)
[2016-09-22] MEDS: RIVAROXABAN 10 MG TAB PO SCH (20:16)
[2016-09-22 20:25] LABS: Glucose,Whole Blood 292 mg/dL (75-99)
[2016-09-22] MEDS: SENNOSIDES-DOCUSATE SODIUM 1 EACH TAB PO SCH (20:39)
[2016-09-22] MEDS ORDERED: LEVOFLOXACIN 750 MG TAB PO SCH (21:00)
[2016-09-22 21:12] LABS: Glucose,Whole Blood 310 mg/dL (75-99)
[2016-09-22 21:25] LABS: Glucose,Whole Blood 277 mg/dL (75-99)
[2016-09-22 21:54] LABS: Glucose,Whole Blood 275 mg/dL (75-99)
[2016-09-22 22:21] LABS: Glucose,Whole Blood 297 mg/dL (75-99)
[2016-09-22 22:48] LABS: Glucose,Whole Blood 298 mg/dL (75-99)
[2016-09-22 23:25] LABS: Glucose,Whole Blood 284 mg/dL (75-99)
[2016-09-22 23:56] LABS: Glucose,Whole Blood 264 mg/dL (75-99)
[2016-09-23 00:23] LABS: Glucose,Whole Blood 260 mg/dL (75-99)
[2016-09-23 00:54] LABS: Glucose,Whole Blood 257 mg/dL (75-99)
[2016-09-23 01:21] LABS: Glucose,Whole Blood 234 mg/dL (75-99)
[2016-09-23 03:24] LABS: Glucose,Whole Blood 197 mg/dL (75-99)
[2016-09-23 05:21] LABS: Glucose,Whole Blood 191 mg/dL (75-99)
[2016-09-23] MEDS: LEVOTHYROXINE 100 MCG TAB PO SCH (05:31)
[2016-09-23] MEDS: FUROSEMIDE 10 MG/ML 4 ML VIAL IV SCH ×2 (05:31→13:38)
[2016-09-23 07:07] LABS: Glucose,Whole Blood 192 mg/dL (75-99)
[2016-09-23 07:53] VITALS: BP 99/48; RESP 16; TEMP 97.4
[2016-09-23] MEDS: IPRATROPIUM-ALBUTEROL 3 ML NEB INHALATION SCH ×2 (08:18→13:48)
[2016-09-23] MEDS: SYMBICORT 160-4.5 MCG INHALER INHALATION SCH (08:18)
[2016-09-23] MEDS: INSULIN LISPRO (humaLOG) 300 UNIT/3 ML VIAL SQ SCH ×2 (08:23→13:36)
[2016-09-23 08:31] VITALS: PULSE 90
[2016-09-23] MEDS: methylPREDNISolone SOD SUCCI 40 MG/ML 1 ML VIAL IV SCH (08:45)
[2016-09-23] MEDS: PANTOPRAZOLE 40 MG TABLET PO SCH (08:45)
[2016-09-23] MEDS: ASPIRIN 81 MG CHEW PO SCH (08:46)
[2016-09-23] MEDS: DULoxetine HCL 30 MG CAPSULE.DR PO SCH (08:46)
[2016-09-23] MEDS: ALLOPURINOL 100 MG TAB PO SCH (08:46)
[2016-09-23] MEDS: METOPROLOL SUCCINATE (ER) 50 MG TAB.ER.24H PO SCH (08:46)
[2016-09-23] MEDS: POTASSIUM CHLORIDE ER 10 MEQ TAB.ER.PRT PO SCH (08:46)
[2016-09-23] MEDS ORDERED: PREGABALIN 50 MG CAP PO SCH (09:00)
[2016-09-23 09:13] LABS: Glucose,Whole Blood 271 mg/dL (75-99)
[2016-09-23 09:44] LABS: Blood Urea Nitrogen 23 mg/dL (7-17); Carbon Dioxide 30 mmol/L (22-30); Non-African American GFR(MDRD) >60 (>60 ml/min/1.73 sqM)
--- NOTE | 2016-09-23 09:56 | PN ---
DATE OF SERVICE: 09/22/2016 PRESENTING COMPLAINT: Short of breath, wheezing. INTERVAL HISTORY: This is a patient admitted with COPD exacerbation, edema, getting IV Lasix. Edema has gone down, wheezing has actually improved. Sugar was running high. Patient had been put on insulin drip. Review of systems done for constitutional, cardiovascular, GI, pulmonary, dermatologic; relevant findings as above. Current medications include insulin drip, IV Solu-Medrol, steroids. On examination, temperature 98.2, pulse 95, respiratory rate 18, blood pressure 102/47, pulse ox 92% on 3-L. GENERAL APPEARANCE: Lying in bed. No audible wheezing. EYES: Pupils equal. Conjunctivae normal. NECK: JVD unable to assess. Mass not palpable. RESPIRATORY: Effort increased. LUNGS: Much improved wheezing. CARDIOVASCULAR: First and second sounds. Decreased edema. ABDOMEN: Distended, soft. Liver and spleen not palpable. PSYCHIATRY: Alert and oriented x3. Mood and affect normal. EXTREMITIES: Bruising of the right upper extremity. INVESTIGATIONS: No blood work from today. Accu-Cheks are running high. 2-D echo did not show any obvious evidence of cor pulmonale. ASSESSMENT: 1. Acute severe chronic obstructive pulmonary disease exacerbation in an ex-smoker with some clinical improvement. 2. Cor pulmonale ruled out. 3. Obesity hypoventilation syndrome. 4. Morbid obesity, body mass index of 31.4. 5. Diabetes mellitus type 2, uncontrolled from steroids, chronically on insulin. 6. ( ) bruising secondary to fall. 7. Chronic deep venous thrombosis on Xarelto. 8. Essential hypertension. 9. Rheumatoid arthritis. 10. Hypothyroidism. 11. History of splenectomy. 12. Bilateral lower extremity edema probably venous insufficiency. PLAN: Patient can be maintained on IV Solu-Medrol today. Hopefully can be cut back tomorrow. Patient is on rather hefty dose of Lyrica and typically dose above 300 is not much beneficial and in fact, will give most side effects including edema. Hence, will cut the dose back. Care was discussed with the patient and and they expressed happiness about patient's improvement.
[2016-09-23 09:57] LABS: Anisocytosis Moderate; CH 24.7; CHCM 29.2; HCT 41.3 % (34.0-46.0); HDW 4.01; HGB 12.1 gm/dL (11.4-16.0); Hypochromasia Marked; MCH 24.9 pg (25.0-35.0); MCHC 29.2 g/dL (31.0-37.0); MCV 85.3 fL (80.0-100.0); Mean Platelet Volume 8.3; Microcytosis Slight; Poikilocytosis Moderate; RBC 4.85 m/uL (3.80-5.40); RDW 20.6 % (11.5-15.5)
[2016-09-23 10:11] LABS: Anion Gap 9 mmol/L; Calcium 8.5 mg/dL (8.4-10.2); Chloride 101 mmol/L (98-107); Glucose 295 mg/dL (74-99); Potassium 3.4 mmol/L (3.5-5.1); Sodium 140 mmol/L (137-145)
--- NOTE | 2016-09-23 10:21 | P.PN ---
Subjective 71-year-old female who we saw yesterday. The patient that was admitted with a diagnosis of right upper lobe pneumonia. She came in primarily because of weakness and falling. She has significant significant bruising to the right upper extremity. Chest x-ray clearly showed a right upper lobe infiltrate. She is feeling better today. Hopes to be able to be discharged home tomorrow. No fever no chills. Mildly short of breath. Not coughing up anything or much phlegm. Progress note dated 09/23/2016 71-year-old female who was seen a couple days ago consultation. She was admitted with a diagnosis of right upper lobe pneumonia. Apparently been falling at home. Has significant bruising to the right upper extremity right shoulder. Feeling much better. She was doing better yesterday. We like to be able to go home. I told her that was up to the hospitalist doctor. Anyway her shortness of breath is much improved. No fever no chills. Not coughing up any phlegm. Objective - Vital Signs Vital signs: Vital Signs Temp 97.4 F L 09/23/16 07:00 Pulse 90 09/23/16 08:31 Resp 16 09/23/16 07:00 BP 99/48 09/23/16 07:00 Pulse Ox 93 L 09/23/16 07:00 Intake & Output 09/22/16 09/23/16 09/23/16 18:59 06:59 18:59 Intake Total 299.208 420.142 19.250 Output Total 1400 500 Balance -1100.792 420.142 -480.750 Weight 124.5 kg Intake: Intake, IV Titration 179.208 120.142 19.250 Amount Insulin Regular 100 unit 179.208 120.142 19.250 In Sodium Chloride 0.9% 100 ml @ Titrate IV .Q0M [facility] Rx#:[id number] Oral 120 300 Output: Urine 1400 500 Other: Voiding Method Bedside Commode Bedside Commode Incontinent # Voids 3 3 1 - Exam No acute distress, oriented 3. HEENT examination is grossly unremarkable. Mucous membranes are moist. No oral lesions. Neck supple. Full thyromegaly. Cardiovascular examination reveals distant heart sounds. S1-S2 normal. No S3- S4 murmur. Lungs reveal a few scattered mild rhonchi. No wheezes or crackles. Breath sounds are equal but somewhat diminished throughout. Abdomen is obese bowel sounds are heard. No masses. Extremities are intact. No cyanosis clubbing or edema. Neurologic examination is nonfocal Skin is without rash. - Labs CBC & Chem 7: 09/23/16 09:06 09/23/16 09:06 Labs: Abnormal Lab Results - Last 24 Hours (Table) 09/22/16 09/22/16 09/22/16 Range/Units 10:15 10:17 11:36 WBC (3.8-10.6) k/uL MCH (25.0-35.0) pg MCHC (31.0-37.0) g/dL RDW (11.5-15.5) % Potassium (3.5-5.1) mmol/L BUN (7-17) mg/dL Glucose (74-99) mg/dL POC Glucose (mg/dL) 483 H 462 H 482 H (75-99) mg/dL 09/22/16 09/22/16 09/22/16 Range/Units 12:43 13:12 13:42 WBC (3.8-10.6) k/uL MCH (25.0-35.0) pg MCHC (31.0-37.0) g/dL RDW (11.5-15.5) % Potassium (3.5-5.1) mmol/L BUN (7-17) mg/dL Glucose (74-99) mg/dL POC Glucose (mg/dL) 507 H 438 H 452 H (75-99) mg/dL 09/22/16 09/22/16 09/22/16 Range/Units 14:12 14:40 15:15 WBC (3.8-10.6) k/uL MCH (25.0-35.0) pg MCHC (31.0-37.0) g/dL RDW (11.5-15.5) % Potassium (3.5-5.1) mmol/L BUN (7-17) mg/dL Glucose (74-99) mg/dL POC Glucose (mg/dL) 432 H 430 H 425 H (75-99) mg/dL 09/22/16 09/22/16 09/22/16 Range/Units 15:50 16:14 16:40 WBC (3.8-10.6) k/uL MCH (25.0-35.0) pg MCHC (31.0-37.0) g/dL RDW (11.5-15.5) % Potassium (3.5-5.1) mmol/L BUN (7-17) mg/dL Glucose (74-99) mg/dL POC Glucose (mg/dL) 406 H 402 H 363 H (75-99) mg/dL 09/22/16 09/22/16 09/22/16 Range/Units 17:11 17:41 18:08 WBC (3.8-10.6) k/uL MCH (25.0-35.0) pg MCHC (31.0-37.0) g/dL RDW (11.5-15.5) % Potassium (3.5-5.1) mmol/L BUN (7-17) mg/dL Glucose (74-99) mg/dL POC Glucose (mg/dL) 333 H 334 H 310 H (75-99) mg/dL 09/22/16 09/22/16 09/22/16 Range/Units 18:39 19:06 19:31 WBC (3.8-10.6) k/uL MCH (25.0-35.0) pg MCHC (31.0-37.0) g/dL RDW (11.5-15.5) % Potassium (3.5-5.1) mmol/L BUN (7-17) mg/dL Glucose (74-99) mg/dL POC Glucose (mg/dL) 287 H 304 H 332 H (75-99) mg/dL 09/22/16 09/22/16 09/22/16 Range/Units 20:13 20:48 21:13 WBC (3.8-10.6) k/uL MCH (25.0-35.0) pg MCHC (31.0-37.0) g/dL RDW (11.5-15.5) % Potassium (3.5-5.1) mmol/L BUN (7-17) mg/dL Glucose (74-99) mg/dL POC Glucose (mg/dL) 292 H 310 H 277 H (75-99) mg/dL 09/22/16 09/22/16 09/22/16 Range/Units 21:43 22:09 22:45 WBC (3.8-10.6) k/uL MCH (25.0-35.0) pg MCHC (31.0-37.0) g/dL RDW (11.5-15.5) % Potassium (3.5-5.1) mmol/L BUN (7-17) mg/dL Glucose (74-99) mg/dL POC Glucose (mg/dL) 275 H 297 H 298 H (75-99) mg/dL 09/22/16 09/22/16 09/23/16 Range/Units 23:13 23:44 00:11 WBC (3.8-10.6) k/uL MCH (25.0-35.0) pg MCHC (31.0-37.0) g/dL RDW (11.5-15.5) % Potassium (3.5-5.1) mmol/L BUN (7-17) mg/dL Glucose (74-99) mg/dL POC Glucose (mg/dL) 284 H 264 H 260 H (75-99) mg/dL 09/23/16 09/23/16 09/23/16 Range/Units 00:41 01:10 03:10 WBC (3.8-10.6) k/uL MCH (25.0-35.0) pg MCHC (31.0-37.0) g/dL RDW (11.5-15.5) % Potassium (3.5-5.1) mmol/L BUN (7-17) mg/dL Glucose (74-99) mg/dL POC Glucose (mg/dL) 257 H 234 H 197 H (75-99) mg/dL 09/23/16 09/23/16 09/23/16 Range/Units 05:19 07:06 09:06 WBC (3.8-10.6) k/uL MCH (25.0-35.0) pg MCHC (31.0-37.0) g/dL RDW (11.5-15.5) % Potassium 3.4 L (3.5-5.1) mmol/L BUN 23 H (7-17) mg/dL Glucose 295 H (74-99) mg/dL POC Glucose (mg/dL) 191 H 192 H (75-99) mg/dL 09/23/16 09/23/16 Range/Units 09:06 09:11 WBC 12.0 H (3.8-10.6) k/uL MCH 24.9 L (25.0-35.0) pg MCHC 29.2 L (31.0-37.0) g/dL RDW 20.6 H (11.5-15.5) % Potassium (3.5-5.1) mmol/L BUN (7-17) mg/dL Glucose (74-99) mg/dL POC Glucose (mg/dL) 271 H (75-99) mg/dL Microbiology - Last 24 Hours (Table) 09/20/16 17:58 Blood Culture - Preliminary Blood No Growth after 48 hours 09/20/16 17:10 Blood Culture - Preliminary Blood No Growth after 48 hours 09/20/16 21:46 Gram Stain - Preliminary Abdomen Wound Culture - Preliminary Group D Enterococcus Assessment and Plan (1) Generalized weakness Status: Acute (2) Pneumonia Status: Acute (3) Diabetes mellitus Status: Acute (4) Fall Status: Acute (5) Hypertension Status: Acute (6) Morbid obesity Status: Acute (7) Weakness Status: Acute (8) History of DVT (deep vein thrombosis) Status: Chronic Plan: Plan dated 09/21/2016 The patient's medications are reviewed. X-rays labs are reviewed. Additional recommendations suggestions are forthcoming. We'll make sure she is on appropriate antibiotics. She should also be on bronchodilators and certainly steroids when her given her bronchospasm. Again we'll continue to follow. Plan dated 09/22/2016 The patient's x-rays and labs are reviewed from yesterday. Medications are reviewed and thought be appropriate. She may be discharged home tomorrow not sure. I will get a chest x-ray in the morning of 1 has not yet been ordered. Medications have been reviewed. Additional recommendations suggestions are forthcoming. Her overall prognosis is guarded. Plan dated 09/23/2016 The patient was evaluated today. Dylan perspective the patient could be considered for discharge. We'll allow the hospitalist to make a decision. She feeling much improved. Minimal shortness of breath. Cough without phlegm production. We'll need a follow-up chest x-ray down the road. Additional recommendations suggestions are forthcoming. Again we'll leave it up to the hospitalist to make a decision about discharge. Time with Patient: Less than 30
[2016-09-23 11:13] LABS: Glucose,Whole Blood 323 mg/dL (75-99)
[2016-09-23 11:25] LABS: Add Differential Manual Differential
[2016-09-23 11:28] LABS: Nucleated Red Blood Cells 1 /100 WBC (0-0); Total Cells Counted 200; WBC 11.9 k/uL (3.8-10.6)
[2016-09-23 11:29] LABS: Howell-Jolly Bodies Present; Polychromasia Present; Target Cells Present
[2016-09-23] MEDS: INSULIN REGULAR 100 UNIT in SODIUM CHLORIDE 0.9% 100 ML IV SCH (11:49)
[2016-09-23 13:18] LABS: Glucose,Whole Blood 340 mg/dL (75-99)
[2016-09-23] MEDS: CALCIUM CARB-VIT D 500MG-200UN 1 EACH TAB PO SCH (13:39)
--- NOTE | 2016-09-23 14:24 | XR ---
EXAMINATION TYPE: XR chest 2V DATE OF EXAM: 09/23/2016 12:19 PM COMPARISON: Prior chest x-ray September HISTORY: Cough and pneumonia TECHNIQUE: Frontal and lateral views of the chest are obtained. FINDINGS: Patient is rotated. Heart size may be accentuated due to technique. Suspect some improveme nt in aeration in the right upper lobe. No evident pneumothorax or pleural effusion. IMPRESSION: Improved aeration. Follow-up PA and lateral chest x-ray likely of benefit.
--- NOTE | 2016-09-26 15:05 | DS ---
DATE OF ADMISSION: 09/20/2016 DATE OF DISCHARGE: 09/23/2016 FINAL DIAGNOSES: 1. Acute severe chronic obstructive pulmonary disease exacerbation in an ex-smoker. 2. Obesity hypoventilation syndrome. 3. Morbid obesity, body mass index of 53.6. 4. Diabetes mellitus type 2, uncontrolled from steroids, chronically on insulin. 5. Upper arm bruising secondary to a fall from patient being on Xarelto. 6. Chronic deep venous thrombosis on Xarelto. 7. Essential hypertension. 8. Rheumatoid arthritis. 9. Hypothyroidism. 10. History of splenectomy. 11. Bilateral lower extremity edema probably venous insufficiency. HOSPITAL COURSE: This patient presented with acute COPD exacerbation. Patient responded well to nebulized bronchodilators with steroids. Given diuretics to which she responded well and edema actually went down. A 2-D echo was done did not show any evidence of cor pulmonale. Patient's edema did go down nicely with diuretics. Care was discussed in detail with the patient and the on the day of discharge. On examination, lungs improved air entry. Edema has gone down. Patient's 2-D echo showed preserved LV function and no evidence of cor pulmonale was reported, EF of 55% to 60%. Discharge planning more than 35 minutes. DISCHARGE MEDICATIONS: 1. Aspirin 81 mg a day. 2. Klonopin 0.5 mg p.o. b.i.d. p.r.n. 3. Januvia 100 mg p.o. daily. 4. Butrans 15 mcg 1 patch on . 5. Cymbalta 30 mg p.o. daily. 6. Lasix 40 mg p.o. daily. 7. Requip 1 mg p.o. q.h.s. 8. Lantus 70 units subcu q.h.s. 9. Calcium 600 mg before lunch. 10. Centrum Silver 1 tablet q.h.s. 11. Potassium sprinkles 10 mEq p.o. daily. 12. Xarelto 20 mg p.o. q.h.s. 13. Senokot-S 2 tablets p.o. q.h.s. 14. Allopurinol 100 mg p.o. daily. 15. Synthroid 100 mcg p.o. daily. 16. Toprol XL 50 mg p.o. daily. 17. Prilosec 20 mg p.o. daily. 18. Humalog 20 units subcu a.c. t.i.d. 19. DuoNeb t.i.d. 20. Lyrica 100 mg p.o. t.i.d. 21. Aldactone 25 mg p.o. daily. 22. Prednisone taper. Follow with Dr. Richard in one week. Follow up with Dr. Lexi min Discharge planning more than 35 minutes.
== END 2016-09-23 14:55 | disposition home or self-care (01) | DRG 190 ==
LOC: EC 11:17 → 4MS4W 15:11
PROVIDERS: ADMIT Hospitalist; ATTEND Hospitalist
DX: J44.0 Chronic obstructive pulmonary disease with (acute) lower respiratory infection (principal); J18.9 Pneumonia, unspecified organism; E11.65 Type 2 diabetes mellitus with hyperglycemia; E66.2 Morbid (severe) obesity with alveolar hypoventilation; M06.9 Rheumatoid arthritis, unspecified; Z68.43 Body mass index [BMI] 50.0-59.9, adult; J44.1 Chronic obstructive pulmonary disease with (acute) exacerbation; E03.9 Hypothyroidism, unspecified; E78.5 Hyperlipidemia, unspecified; F17.200 Nicotine dependence, unspecified, uncomplicated; I10 Essential (primary) hypertension; I87.2 Venous insufficiency (chronic) (peripheral); Z79.4 Long term (current) use of insulin; Z79.82 Long term (current) use of aspirin; Z79.899 Other long term (current) drug therapy; Z85.72 Personal history of non-Hodgkin lymphomas; Z86.711 Personal history of pulmonary embolism; Z86.718 Personal history of other venous thrombosis and embolism; Z90.81 Acquired absence of spleen; Z91.041 Radiographic dye allergy status; S40.021A Contusion of right upper arm, initial encounter
CPT/HCPCS: 36415; 70450; 71020; 80048; 80053; 80306; 80320; 81003; 82550; 82553; 83036; 83605; 83735; 83880; 84439; 84443; 84484; 85025; 85610; 85730; 87040; 87070; 87077; 87186; 87205; 93005; 93306; 94640; 94760

== ENCOUNTER → 2017-03-02 | Outpatient (CLI) | payer MEDICARE ==
[2017-03-02 11:37] VITALS: BP 109/57; PULSE 81; RESP 18; TEMP 97.4
== END ==
LOC: PROCWHC3 11:13
PROVIDERS: ATTEND Family Medicine
DX: M81.0 Age-related osteoporosis without current pathological fracture (principal)
CPT/HCPCS: 96372; J0897

== ENCOUNTER → 2017-03-07 | Outpatient (CLI) | payer MEDICARE ==
--- NOTE | 2017-03-07 18:42 | US ---
EXAMINATION TYPE: US venous doppler duplex LE RT DATE OF EXAM: 03/07/2017 6:19 PM COMPARISON: NONE CLINICAL HISTORY: RLE R60.0 Edema,. Right leg edema knee surgery in January SIDE PERFORMED: Right TECHNIQUE: The lower extremity deep venous system is examined utilizing real time linear array sonog nghia with graded compression, doppler sonography and color-flow sonography. VESSELS IMAGED: External Iliac Vein (EIV) Common Femoral Vein Deep Femoral Vein Greater Saphenous Vein * Femoral Vein Popliteal Vein Small Saphenous Vein * Proximal Calf Veins (* superficial vessels) Right Leg: Negative for DVT Grayscale, color doppler, spectral doppler imaging performed of the deep veins of the right lower ext remity. There is normal flow, compressibility, and vascular waveforms. IMPRESSION: No ultrasound evidence for acute DVT in the right lower extremity.
== END | disposition home or self-care (01) ==
LOC: RADUSMAIN 17:51
PROVIDERS: ATTEND Family Medicine
DX: R60.0 Localized edema (principal)

== ENCOUNTER 2017-08-03 19:03 | Inpatient (IN) | payer MEDICARE ==
[2017-08-03] MEDS ORDERED: PIPERACILLIN-TAZOBACTAM 3.375 GM in DEXTROSE/WATER 1 50ML.BAG IVPB STA (19:14)
[2017-08-03 19:53] LABS: ALT 24 U/L (9-52); AST 27 U/L (14-36); Albumin 3.4 g/dL (3.5-5.0); Alkaline Phosphatase 93 U/L (38-126); Anion Gap 10 mmol/L; Blood Urea Nitrogen 20 mg/dL (7-17); Calcium 9.8 mg/dL (8.4-10.2); Carbon Dioxide 25 mmol/L (22-30); Chloride 105 mmol/L (98-107); Glucose 198 mg/dL (74-99); Potassium 4.3 mmol/L (3.5-5.1); Sodium 140 mmol/L (137-145); Total Bilirubin 0.4 mg/dL (0.2-1.3)
[2017-08-03 19:55] LABS: Anisocytosis Marked; Basophils % (A) 0 %; Eosinophils # (A) 0.1 k/uL (0-0.7); Eosinophils % (A) 1 %; HGB 12.5 gm/dL (11.4-16.0); Hypochromasia Marked; Lymphocytes # (A) 0.9 k/uL (1.0-4.8); Lymphocytes % (A) 6 %; MCH 23.4 pg (25.0-35.0); MCHC 27.7 g/dL (31.0-37.0); MCV 84.4 fL (80.0-100.0); Macrocytosis Slight; Mean Platelet Volume 7.9; Microcytosis Moderate; Monocytes # (A) 0.4 k/uL (0-1.0); Monocytes % (A) 3 %; Neutrophils # (A) 12.8 k/uL (1.3-7.7); Neutrophils % (A) 90 %; Platelet Count 390 k/uL (150-450); Poikilocytosis Slight; RBC 5.33 m/uL (3.80-5.40); WBC 14.3 k/uL (3.8-10.6)
[2017-08-03 19:57] LABS: RDW 28.9 % (11.5-15.5)
[2017-08-03 20:02] LABS: Partial Thromboplastin Time 27.8 sec (22.0-30.0)
[2017-08-03 20:07] LABS: INR 1.2 (<1.2); Prothrombin Time 11.6 sec (9.0-12.0)
[2017-08-03 20:11] LABS: Creatine Kinase 55 U/L (30-135)
[2017-08-03 20:19] LABS: Creatine Kinase MB 0.3 ng/mL (0.0-2.4)
[2017-08-03] MEDS ORDERED: ONDANSETRON 4 MG/2 ML VIAL IVP STA (20:21)
[2017-08-03 20:24] LABS: Appearance,Urine Cloudy (Clear); Bacteria,Urine Few /hpf; Bilirubin,Urine Negative (Negative); Blood,Urine Trace (Negative); Budding Yeast,Urine Rare /hpf; Color,Urine Yellow; Glucose,Urine (UA) Negative (Negative); Ketones,Urine Negative (Negative); Leukocyte Esterase,Urine Large (Negative); PH, Urine 6.5 (5.0-8.0); Protein,Urine Trace (Negative); RBC,Urine 8 /hpf (0-5); Specific Gravity,Urine 1.018 (1.001-1.035); Squamous Epithelial Cell,Urine 1 /hpf (0-4); Urobilinogen,Urine <2.0 mg/dL (<2.0); WBC,Urine 126 /hpf (0-5)
[2017-08-03 20:24] LABS: Troponin I <0.012 ng/mL (0.000-0.034)
[2017-08-03] MEDS: SODIUM CHLORIDE 0.9% 500 ML IV SCH ×4 (20:27→22:19)
[2017-08-03] MEDS: MORPHINE SULFATE 4 MG/ML SYRINGE IVP STA ×2 (20:29→22:48)
[2017-08-03] MEDS ORDERED: ACETAMINOPHEN TAB 500 MG TAB PO STA (20:39)
[2017-08-03] MEDS ORDERED: SODIUM CHLORIDE 0.9% 2,000 ML IV ONE (20:55)
--- NOTE | 2017-08-03 20:55 | ED ---
Fever HPI - General Chief Complaint: Fever Stated Complaint: poss sepsis Time Seen by Provider: 08/03/17 19:14 Source: patient Mode of arrival: EMS Limitations: physical limitation - History of Present Illness Initial Comments: 72 years old female came in with a fever chills palpitation shortness of breath she was recently diagnosed with urinary tract infection. Denies any headaches no neck stiffness has been coughing no chest pain been short-winded no pleuritic chest pain no abdominal pain I had a dysuria and frequency no symptoms of TIA or CVA - Related Data Home Medications Medication Instructions Recorded Confirmed Aspirin 81 mg PO DAILY@1700 10/09/13 08/03/17 clonazePAM [KlonoPIN] 0.5 mg PO BID PRN 10/09/13 08/03/17 sitaGLIPtin [Januvia] 100 mg PO DAILY@0800 10/09/13 08/03/17 DULoxetine HCL [Cymbalta] 30 mg PO BID@0800,1700 11/27/15 08/03/17 rOPINIRole HCL [Requip] 3 mg PO HS@2100 11/27/15 08/03/17 Insulin Glargine [Lantus] 40 unit SQ HS@2130 11/28/15 08/03/17 Rivaroxaban [Xarelto] 20 mg PO DAILY@1700 05/12/16 08/03/17 Sennosides-Docusate Sodium 2 tab PO DAILY@0800 05/12/16 08/03/17 [Senokot-S] Allopurinol [Zyloprim] 100 mg PO DAILY@0800 09/20/16 08/03/17 Levothyroxine Sodium [Synthroid] 100 mcg PO DAILY 09/20/16 08/03/17 Omeprazole [PriLOSEC] 20 mg PO DAILY 09/20/16 08/03/17 Atorvastatin [Lipitor] 40 mg PO DAILY@1700 05/02/17 08/03/17 Insulin Lispro [humaLOG Kwikpen] See Protocol SQ ACHS 05/02/17 08/03/17 Acetaminophen Tab [Tylenol Tab] 650 mg PO Q6H PRN 08/03/17 08/03/17 Albuterol Nebulized [Ventolin 2.5 mg INHALATION RT-Q6H PRN 08/03/17 08/03/17 Nebulized] Amino Acids/Protein Hydrolys 30 ml PO DAILY@0800 08/03/17 08/03/17 [Pro-Stat Supplement] Bisacodyl [Dulcolax] 10 mg RECTAL DAILY PRN 08/03/17 08/03/17 Budesonide/Formoterol Fumarate 1 puff INHALATION RT-BID@0800,209908/03/1708/03 [Symbicort 80-4.5 Mcg Inhaler] Cholecalciferol (Vitamin D3) 2,000 unit PO DAILY@17008/03/17 08/03/17 [Vitamin D3] Cyclobenzaprine [Flexeril] 5 mg PO TID PRN 08/03/17 08/03/17 Docusate Sodium [Dok] 200 mg PO BID@0800,169908/03/17 08/03/17 Ferrous Sulfate [Feosol] 325 mg PO DAILY@169908/03/17 08/03/17 Furosemide [Lasix] 20 mg PO DAILY@0808/03/17 08/03/17 Glucerna Shake 1 can PO BID@0800,169908/03/17 08/03/17 HYDROcodone/APAP 10-325MG [[place]ga 1 tab PO Q4HR PRN 08/03/17 08/03/17 10-325] L.acidoph,Paracasei, B.lactis 1 cap PO DAILY@0800 08/03/17 08/03/17 [Probiotic] Magnesium Hydroxide [Milk of 2,400 mg PO DAILY PRN 08/03/17 08/03/17 Magnesia] Metoprolol Tartrate [Lopressor] 12.5 mg PO BID@0800,209908/03/17 08/03/17 Na Phos,M-B/Na Phos,Di-Ba [Fleet 133 ml RECTAL ONCE PRN 08/03/17 08/03/17 Adult] Ondansetron [Zofran] 4 mg PO Q8H PRN 08/03/17 08/03/17 Polyethylene Glycol 3350 [Miralax] 17 gm PO DAILY@0800 08/03/17 08/03/17 Potassium Chloride ER [K-Dur 20] 20 meq PO DAILY@1700 08/03/17 08/03/17 Pregabalin [Lyrica] 200 mg PO BID@0800,2099 08/03/17 08/03/17 cefTRIAXone [Rocephin] 1,000 mg IV Q24HR 08/03/17 08/03/17 Allergies Allergy/AdvReac Type Severity Reaction Status Date / Time iodine Allergy Unknown Verified 08/03/17 19:25 Review of Systems ROS Statement: Those systems with pertinent positive or pertinent negative responses have been documented in the HPI. ROS Other: All systems not noted in ROS Statement are negative. Past Medical History Past Medical History: Cancer, COPD, Diabetes Mellitus, Deep Vein Thrombosis (DVT ), Hyperlipidemia, Hypertension, Pneumonia, Pulmonary Embolus (PE), Rheumatoid Arthritis (RA), Skin Disorder, Thyroid Disorder Additional Past Medical History / Comment(s): stated "was to have total left knee surgery and and something is wrong with the blood work and now needing to have EGD & colonoscopy".mult ulcers to stomach,chest and breast-unk cause has had for over a yr-seen at [facility],"[id number] with spleenectomy and radiation,DVTs & PE yrs ago.Uses walker and w/c. History of Any Multi-Drug Resistant Organisms: None Reported Past Surgical History: Appendectomy, Section, Cholecystectomy, Orthopedic Surgery Additional Past Surgical History / Comment(s): total rt knee Jan 2017, Splenectomy, Carpal tunnel release, rotator cuff Past Anesthesia/Blood Transfusion Reactions: No Reported Reaction Past Psychological History: Depression Smoking Status: Former smoker - Past Family History Son(s) Family Medical History: No Reported History Additional Family Medical History / Comment(s): She relates that her parents of old age her mother was about 90 father was 88, without sniffing and medical troubles. She does relate that her son committed suicide but her daughter is quite healthy. General Exam - General Exam Comments Initial Comments: General: The patient is awake and alert, in great distress she is shaking Skin: Skin is warm and dry and no rashes or lesions are noted. Eye: Pupils are equal, round and reactive to light, extra-ocular movements are intact; there is normal conjunctiva bilaterally. Ears, nose, mouth and throat: Mucous membranes are dry Neck: The neck is supple, there is no tenderness or JVD. Cardiovascular: There is a regular rate and rhythm. Heart rate is 1 30 bpm sinus tach Respiratory: To auscultation bilateral, noticed lots of secretions at the bases bilateral Gastrointestinal: Soft, non-distended, non-tender abdomen without masses or organomegaly noted. There is no rebound or guarding present. Bowel sounds are unremarkable. Back: There is no tenderness to palpation in the midline. There is no obvious deformity. Musculoskeletal: Normal ROM, no tenderness, There is no pedal edema. There is no calf tenderness or swelling. No cords were appreciated. Neurological: CN II-XII intact, Cranial nerves III through XII are intact. There are no obvious motor or sensory deficits. Coordination appears grossly intact. Speech is normal. Psychiatric: Cooperative, appropriate mood & affect, normal judgment. Limitations: physical limitation Course Vital Signs 08/03/17 08/03/17 19:23 20:26 Temperature 103.6 F H Pulse Rate 131 H 129 H Respiratory 18 22 Rate Blood Pressure 95/59 138/82 O2 Sat by Pulse 96 94 L Oximetry KG is a sinus tachycardia medical rate is 135 AL interval is 138 QRS duration is 92 QT/QTc is 390/441 review of this EKG reveals T-wave inversion in lead aVL no ST elevation or ST depression noticed Medical Decision Making - Lab Data Result diagrams: 08/03/17 19:28 08/03/17 19:28 Lab Results 08/03/17 08/03/17 08/03/17 Range/Units 19:28 19:28 19:28 WBC 14.3 H (3.8-10.6) k/uL RBC 5.33 (3.80-5.40) m/uL Hgb 12.5 (11.4-16.0) gm/dL Hct 45.0 (34.0-46.0) % MCV 84.4 (80.0-100.0) fL MCH 23.4 L (25.0-35.0) pg MCHC 27.7 L (31.0-37.0) g/dL RDW 28.9 H (11.5-15.5) % Plt Count 390 (150-450) k/uL Neutrophils % 90 % Lymphocytes % 6 % Monocytes % 3 % Eosinophils % 1 % Basophils % 0 % Neutrophils # 12.8 H (1.3-7.7) k/uL Lymphocytes # 0.9 L (1.0-4.8) k/uL Monocytes # 0.4 (0-1.0) k/uL Eosinophils # 0.1 (0-0.7) k/uL Basophils # 0.0 (0-0.2) k/uL Hypochromasia Marked Poikilocytosis Slight Anisocytosis Marked Microcytosis Moderate Macrocytosis Slight PT (9.0-12.0) sec INR (<1.2) APTT (22.0-30.0) sec Sodium 140 (137-145) mmol/L Potassium 4.3 (3.5-5.1) mmol/L Chloride 105 (98-107) mmol/L Carbon Dioxide 25 (22-30) mmol/L Anion Gap 10 mmol/L BUN 20 H (7-17) mg/dL Creatinine 0.70 (0.52-1.04) mg/dL Est GFR (MDRD) Af Amer >60 (>60 ml/min/1.73 sqM) Est GFR (MDRD) Non-Af >60 (>60 ml/min/1.73 sqM) Glucose 198 H (74-99) mg/dL Plasma Lactic Acid Gee 1.3 (0.7-2.0) mmol/L Calcium 9.8 (8.4-10.2) mg/dL Total Bilirubin 0.4 (0.2-1.3) mg/dL AST 27 (14-36) U/L ALT 24 (9-52) U/L Alkaline Phosphatase 93 (38-126) U/L Total Creatine Kinase (30-135) U/L CK-MB (CK-2) (0.0-2.4) ng/mL CK-MB (CK-2) Rel Index Troponin I (0.000-0.034) ng/mL Total Protein 7.0 (6.3-8.2) g/dL Albumin 3.4 L (3.5-5.0) g/dL Urine Color Urine Appearance (Clear) Urine pH (5.0-8.0) Ur Specific [place] (1.001-1.035) Urine Protein (Negative) Urine Glucose (UA) (Negative) Urine Ketones (Negative) Urine Blood (Negative) Urine Nitrite (Negative) Urine Bilirubin (Negative) Urine Urobilinogen (<2.0) mg/dL Ur Leukocyte Esterase (Negative) Urine RBC (0-5) /hpf Urine WBC (0-5) /hpf Ur Squamous Epith Cells (0-4) /hpf Urine Bacteria (None) /hpf Urine Yeast (Budding) (None) /hpf Influenza Type A RNA (Not Detectd) Influenza Type B (PCR) (Not Detectd) 08/03/17 08/03/17 08/03/17 Range/Units 19:28 19:28 19:55 WBC (3.8-10.6) k/uL RBC (3.80-5.40) m/uL Hgb (11.4-16.0) gm/dL Hct (34.0-46.0) % MCV (80.0-100.0) fL MCH (25.0-35.0) pg MCHC (31.0-37.0) g/dL RDW (11.5-15.5) % Plt Count (150-450) k/uL Neutrophils % % Lymphocytes % % Monocytes % % Eosinophils % % Basophils % % Neutrophils # (1.3-7.7) k/uL Lymphocytes # (1.0-4.8) k/uL Monocytes # (0-1.0) k/uL Eosinophils # (0-0.7) k/uL Basophils # (0-0.2) k/uL Hypochromasia Poikilocytosis Anisocytosis Microcytosis Macrocytosis PT 11.6 (9.0-12.0) sec INR 1.2 H (<1.2) APTT 27.8 (22.0-30.0) sec Sodium (137-145) mmol/L Potassium (3.5-5.1) mmol/L Chloride (98-107) mmol/L Carbon Dioxide (22-30) mmol/L Anion Gap mmol/L BUN (7-17) mg/dL Creatinine (0.52-1.04) mg/dL Est GFR (MDRD) Af Amer (>60 ml/min/1.73 sqM) Est GFR (MDRD) Non-Af (>60 ml/min/1.73 sqM) Glucose (74-99) mg/dL Plasma Lactic Acid Gee (0.7-2.0) mmol/L Calcium (8.4-10.2) mg/dL Total Bilirubin (0.2-1.3) mg/dL AST (14-36) U/L ALT (9-52) U/L Alkaline Phosphatase (38-126) U/L Total Creatine Kinase 55 (30-135) U/L CK-MB (CK-2) 0.3 (0.0-2.4) ng/mL CK-MB (CK-2) Rel Index 0.5 Troponin I <0.012 (0.000-0.034) ng/mL Total Protein (6.3-8.2) g/dL Albumin (3.5-5.0) g/dL Urine Color Urine Appearance (Clear) Urine pH (5.0-8.0) Ur Specific [place] (1.001-1.035) Urine Protein (Negative) Urine Glucose (UA) (Negative) Urine Ketones (Negative) Urine Blood (Negative) Urine Nitrite (Negative) Urine Bilirubin (Negative) Urine Urobilinogen (<2.0) mg/dL Ur Leukocyte Esterase (Negative) Urine RBC (0-5) /hpf Urine WBC (0-5) /hpf Ur Squamous Epith Cells (0-4) /hpf Urine Bacteria (None) /hpf Urine Yeast (Budding) (None) /hpf Influenza Type A RNA Not Detected (Not Detectd) Influenza Type B (PCR) Not Detected (Not Detectd) 08/03/17 Range/Units 20:10 WBC (3.8-10.6) k/uL RBC (3.80-5.40) m/uL Hgb (11.4-16.0) gm/dL Hct (34.0-46.0) % MCV (80.0-100.0) fL MCH (25.0-35.0) pg MCHC (31.0-37.0) g/dL RDW (11.5-15.5) % Plt Count (150-450) k/uL Neutrophils % % Lymphocytes % % Monocytes % % Eosinophils % % Basophils % % Neutrophils # (1.3-7.7) k/uL Lymphocytes # (1.0-4.8) k/uL Monocytes # (0-1.0) k/uL Eosinophils # (0-0.7) k/uL Basophils # (0-0.2) k/uL Hypochromasia Poikilocytosis Anisocytosis Microcytosis Macrocytosis PT (9.0-12.0) sec INR (<1.2) APTT (22.0-30.0) sec Sodium (137-145) mmol/L Potassium (3.5-5.1) mmol/L Chloride (98-107) mmol/L Carbon Dioxide (22-30) mmol/L Anion Gap mmol/L BUN (7-17) mg/dL Creatinine (0.52-1.04) mg/dL Est GFR (MDRD) Af Amer (>60 ml/min/1.73 sqM) Est GFR (MDRD) Non-Af (>60 ml/min/1.73 sqM) Glucose (74-99) mg/dL Plasma Lactic Acid Gee (0.7-2.0) mmol/L Calcium (8.4-10.2) mg/dL Total Bilirubin (0.2-1.3) mg/dL AST (14-36) U/L ALT (9-52) U/L Alkaline Phosphatase (38-126) U/L Total Creatine Kinase (30-135) U/L CK-MB (CK-2) (0.0-2.4) ng/mL CK-MB (CK-2) Rel Index Troponin I (0.000-0.034) ng/mL Total Protein (6.3-8.2) g/dL Albumin (3.5-5.0) g/dL Urine Color Yellow Urine Appearance Cloudy H (Clear) Urine pH 6.5 (5.0-8.0) Ur Specific [place] 1.018 (1.001-1.035) Urine Protein Trace H (Negative) Urine Glucose (UA) Negative (Negative) Urine Ketones Negative (Negative) Urine Blood Trace H (Negative) Urine Nitrite Negative (Negative) Urine Bilirubin Negative (Negative) Urine Urobilinogen <2.0 (<2.0) mg/dL Ur Leukocyte Esterase Large H (Negative) Urine RBC 8 H (0-5) /hpf Urine WBC 126 H (0-5) /hpf Ur Squamous Epith Cells 1 (0-4) /hpf Urine Bacteria Few H (None) /hpf Urine Yeast (Budding) Rare H (None) /hpf Influenza Type A RNA (Not Detectd) Influenza Type B (PCR) (Not Detectd) Critical Care Time Total Critical Care Time: 45 Critical Care Time: She came in now with the blood pressure 90 systolic heart rate was 1:30 fever of 103 and she was shaking obviously it's abscess white count is slightly elevated at 15 urinalysis is quite significant for being positive I think is probably the source of sepsis we I will 4 L of fluids did notice stepwise considering she 72 so for we have been able to void the pressors she got 3 g of 2.75 g of Zosyn and she be she be admitted to selective symptoms get worse and then she probably will need to go to the ICU Disposition Clinical Impression: Hypotension, Tachycardia, Fever, Sepsis Disposition: ADMITTED IP TO THIS HOSP Condition: Good Referrals: Paramjit Neville DO [Primary Care Provider] - 1-2 days
--- NOTE | 2017-08-03 21:49 | XR ---
EXAMINATION TYPE: XR chest 2V DATE OF EXAM: 08/03/2017 COMPARISON: July 13, 2017 HISTORY: Fever TECHNIQUE: Frontal and lateral views of the chest are obtained. FINDINGS: There is some coarsening of interstitial markings. Thoracic aorta is atheromatous. Heart s ize is normal. There is no heart failure. Bony thorax is intact. There is probably a mild infiltrate in the right upper lobe. IMPRESSION: Pulmonary fibrotic changes. There is probably a new mild pneumonia in the right upper lo be compared to last exam. No heart failure.
[2017-08-03] MEDS ORDERED: IBUPROFEN 600 MG TAB PO STA (22:53)
[2017-08-04] MEDS ORDERED: NALOXONE 0.4 MG/ML 1 ML VIAL IV PRN (00:10)
[2017-08-04] MEDS ORDERED: ONDANSETRON 4 MG/2 ML VIAL IVP PRN (00:10)
[2017-08-04] MEDS ORDERED: MAGNESIUM HYDROXIDE 2,400 MG/10 ML CUP PO PRN (00:13)
[2017-08-04] MEDS ORDERED: BISACODYL 10 MG SUPP RECTAL PRN (00:13)
[2017-08-04] MEDS ORDERED: ALBUTEROL NEBULIZED 2.5 MG/3 ML INHALATION PRN (00:13)
[2017-08-04] MEDS ORDERED: ONDANSETRON 4 MG TAB PO PRN (00:13)
[2017-08-04] MEDS ORDERED: CYCLOBENZAPRINE 5 MG TAB PO PRN (00:13)
[2017-08-04] MEDS ORDERED: ACETAMINOPHEN TAB 325 MG TAB PO PRN (00:13)
[2017-08-04] MEDS ORDERED: clonazePAM 0.5 MG TAB PO PRN (00:13)
[2017-08-04] MEDS ORDERED: NA PHOS,M-B/NA PHOS,DI-BA 133 ML ENEMA RECTAL PRN (00:13)
[2017-08-04] MEDS: MORPHINE SULFATE 4 MG/ML SYRINGE IV PRN ×2 (01:09→13:35)
[2017-08-04 01:25] VITALS: BMI 47.0
[2017-08-04 06:40] LABS: Glucose,Whole Blood 141 mg/dL (75-99)
[2017-08-04] MEDS: SYMBICORT 80-4.5 MCG INHALER INHALATION SCH ×2 (07:50→19:49)
[2017-08-04] MEDS ORDERED: NON-FORMULARY DRUG (Glucerna Shake 1 CAN) PO SCH (08:00)
[2017-08-04] MEDS ORDERED: PIPERACILLIN-TAZOBACTAM 3.375 GM in DEXTROSE/WATER 1 50ML.BAG IVPB SCH (08:00)
[2017-08-04] MEDS ORDERED: NON-FORMULARY DRUG (Amino Acids/Protein Hydrolys [Pro-Stat Supplement] 30 ML) PO SCH (08:00)
[2017-08-04] MEDS: POLYETHYLENE GLYCOL 3350 17 GM POWD.PACK PO SCH (08:29)
[2017-08-04] MEDS: SENNOSIDES-DOCUSATE SODIUM 1 EACH TAB PO SCH (08:29)
[2017-08-04] MEDS: DULoxetine HCL 30 MG CAPSULE.DR PO SCH ×2 (08:34→16:35)
[2017-08-04] MEDS: DOCUSATE 100 MG CAP PO SCH ×2 (08:34→16:41)
[2017-08-04] MEDS: ALLOPURINOL 100 MG TAB PO SCH (08:34)
[2017-08-04] MEDS: LINAGLIPTIN 5 MG TABLET PO SCH (08:35)
[2017-08-04] MEDS: FUROSEMIDE 20 MG TAB PO SCH (08:35)
[2017-08-04] MEDS: LACTOBACILLUS ACIDOPH & BULGAR 1 EACH PACKET PO SCH (08:35)
[2017-08-04] MEDS: PREGABALIN 100 MG CAP PO SCH ×2 (08:36→20:40)
[2017-08-04] MEDS: METOPROLOL TARTRATE 12.5 MG TAB PO SCH ×2 (08:36→20:36)
[2017-08-04] MEDS: LEVOTHYROXINE 100 MCG TAB PO SCH (08:36)
[2017-08-04] MEDS: PANTOPRAZOLE 40 MG TABLET PO SCH (08:37)
[2017-08-04 13:42] LABS: Glucose,Whole Blood 137 mg/dL (75-99)
--- NOTE | 2017-08-04 14:40 | CONS ---
CONSULTATION DATE OF SERVICE: 08/04/2017 REASON FOR CONSULTATION: Sepsis/fever. HISTORY OF PRESENT ILLNESS: The patient is a 72-year-old female presenting to the ER at [facility] on 08/03/2017 with chief complaints of fever. The patient's symptoms started about 2 days ago, predominantly with urine symptoms of burning, slight frequency, but denies having any hematuria. The patient did have minimal lower abdominal pain for the same duration, more of a dull aching pain 2 to 3/10 and no radiation. The patient felt nauseated, but did have any fluid or vomiting with it, and also some loose stool, but no blood or mucus in the stool. Denies having any chest pain, shortness of breath or cough. No joint swelling, no redness. Patient has been evaluated by the ER physician. On arrival to the ER, the patient did have a fever of 103.5 Fahrenheit. The patient did influenza serology, influenza blood test which was negative. Patient's urine was significantly positive with large leukocyte esterase, 126 WBC, a few bacteria. The patient will be started on Zosyn in the hospital. Infectious Disease was consulted for further recommendation regarding antibiotic therapy. Patient did have a recent urine culture in the outpatient setting on 07/14, which did grow E. coli, which is a sensitive pathogen. REVIEW OF SYSTEMS: CONSTITUTIONAL: Positive for weakness and fever. EYES: No complaint. ENT: No complaint. RESPIRATORY: No complaint. CARDIOVASCULAR: No complaint. GENITOURINARY: As per HPI. GASTROINTESTINAL: As per HPI. MUSCULOSKELETAL: No complaint. INTEGUMENTARY: No complaint. PSYCHOLOGICAL: No complaint. ENDOCRINE: No complaint. NEUROLOGICAL: No complaint. PAST MEDICAL HISTORY: Significant for diabetes mellitus, COPD, DVT, hyperlipidemia, hypertension, pneumonia, pulmonary embolism, rheumatoid arthritis, hypothyroidism. PAST SURGICAL HISTORY: Appendectomy, , cholecystectomy, splenectomy, and right knee surgery. SOCIAL HISTORY: Remote history of smoking, no drinking or drug use. FAMILY HISTORY: No pertinent findings were noticed. ALLERGIES: To IODINE. MEDICATIONS: The patient is currently on Zyloprim, aspirin, Lipitor, Dulcolax, Symbicort, vitamin D3, Klonopin, Flexeril, Colace, Cymbalta, iron sulfate, Lasix, Levemir, Lactinex, Synthroid, Tradjenta, Lopressor, morphine sulfate, Narcan, Zofran, Protonix, Zosyn, MiraLAX, Lyrica, Xarelto, Requip, Senokot. PHYSICAL EXAMINATION: Blood pressure is 123/53 with a pulse of 93, temperature of 97, T-max is 103.6. General description is an elderly female, lying in bed in no distress. No tachypnea or accessory muscle for respiration use. HEENT: Shows no pallor or scleral icterus. Oral mucosa is dry. No pharyngeal edema or thrush. NECK: Trachea central, no thyromegaly. LUNGS: Unlabored breathing. Minimal wheeze. No crackles. HEART: S1, S2. Regular rate and normal rhythm. ABDOMEN: Soft, no tenderness, no organomegaly. EXTREMITIES: No edema of the feet. SKIN EXAMINATION: No rashes or mass palpable. NEUROLOGICAL: Patient is awake, alert, oriented. Mood and affect normal. LABS: Hemoglobin of 12.5, white count of 14.3, BUN of 20, creatinine 0.70. Electrolytes have been normal. Liver enzymes are normal. Urine is positive with large leukocyte esterases, 126 WBC, cultures show currently gram-negative. Influenza serology negative. Blood culture currently pending. Urine culture on 07/14 in the outpatient setting was an E coli. DIAGNOSTIC IMPRESSION AND PLAN: Patient admitted to the hospital with sepsis in a patient did have a fever of 103.6 degrees Fahrenheit. The patient did have associated tachycardia with heart rate to 131. At one time did have hypertension with a systolic of 83. Medical reason was sepsis, source is likely urine. The patient did have significant urinary symptoms. Also have elevated white count of 14.3, more likely enteric gram-negative. Patient did have a recent urine culture in outpatient setting. An E coli could be the same pathogen. She was not very clear to tell me if she has current antibiotic for the same or what the name of the antibiotic was and patient did have significant systemic symptoms with associated nausea, vomiting and diarrhea. Her abdomen is soft, nontender on examination today. No other clinical focus for this physical fever. PLAN: 1. We will obtain an ultrasound of the abdominal area to make sure there is no evidence of any structural abnormality or hydronephrosis with concern for possible deep infection with sepsis. 2. We will discontinue Zosyn. 3. Will start the patient on Rocephin 2 g IV b.i.d. 4. Aggressive IV fluid. 5. Will follow up on clinical condition and culture to further adjust medication if needed. Thank you for this consultation. Will follow this patient along with you. CAMILLAL / IJN: [id number] /
[2017-08-04] MEDS ORDERED: MORPHINE ORAL SOLN 10 MG/5 ML CUP PO PRN (14:49)
--- NOTE | 2017-08-04 15:46 | HP ---
HISTORY AND PHYSICAL DATE OF ADMISSION: August 03, 2017. PRESENTING COMPLAINT: Fever. HISTORY OF PRESENTING COMPLAINT: This is a pleasant 72-year-old patient who is a resident of [facility] there for right ankle fracture rehab. The patient started having some urine burning frequency, some lower abdominal discomfort and developed high-grade fever, some confusion, delirium, decreased appetite, for which patient sent down to the ER, found to have UTI. The patient denies any major respiratory symptoms. REVIEW OF SYSTEMS: Constitutional: Febrile. HEENT none. Respiratory: Baseline some shortness of breath. Cardiovascular none. Gastrointestinal none. Genitourinary as above. Musculoskeletal: Arthritic pain in joints. Dermatological, hematologic, lymphatics none. Psychiatric: A little bit delirious when she came in. Neurological none. Musculoskeletal: Pain in the right ankle. PAST MEDICAL HISTORY: COPD, diabetes mellitus type 2, DVT, hypertension, hyperlipidemia, pulmonary embolism, rheumatoid arthritis, hypothyroid, peptic ulcer disease, lymphoma in 1993, treated with splenectomy and radiation, DVTs and PE years ago. Uses a walker and wheelchair. PAST SURGICAL HISTORY: Appendectomy, , cholecystectomy, orthopedic surgery, total right knee in January 2017, splenectomy, carpal tunnel. PSYCH HISTORY: Depression. SOCIAL HISTORY: The patient is . The patient lives in [facility]. The patient smoked a pack a day for 30 years. Stopped in 1993. Did work in retail. No recreational drug use. FAMILY HISTORY: Both parents of old age. Son committed suicide. HOME MEDICATIONS: 1. Zofran 4 mg q.8h p.r.n. 2. Ceftriaxone 1 g q24 hours. 3. Milk of magnesia 25 mg daily p.r.n. 4. White 10 1 tab q.4h p.r.n. 5. Adult Fleet p.r.n. 6. Dulcolax 10 mg p.r.n. 7. Januvia 100 mg p.o. daily. 8. Requip 3 mg at bedtime. 9. Klonopin 0.5 p.o. b.i.d. p.r.n. 10.Senokot-S 2 tablets p.o. daily. 11.Xarelto 20 mg p.o. daily. 12.Lyrica 200 mg b.i.d. 13.Potassium 20 mEq p.o. daily. 14.MiraLAX 17 g p.o. daily. 15.Prilosec 20 mg p.o. daily. 16.Lopressor 12.5 p.o. b.i.d. 17.Synthroid 100 mcg p.o. daily. 18.Probiotic 1 capsule p.o. daily. 19.Insulin lispro a.c. and q.h.s. 20.Lantus 40 units subcu q.h.s. 21.Glucerna 1 can p.o. b.i.d. 22.Lasix 20 mg p.o. daily. 23.Iron 325 p.o. daily. 24.Colace 200 mg b.i.d. 25.Cymbalta 30 mg p.o. b.i.d. 26.Flexeril 5 mg p.o. t.i.d. p.r.n. 27.Vitamin D3 2000 units p.o. daily. 28.Symbicort 80/4.5, 1 puff b.i.d. 29.Lipitor 40 mg p.o. daily. 30.Aspirin 81 mg p.o. daily. 31.ProStat 30 mL p.o. daily. 32.Allopurinol 100 mg p.o. daily. 33.Ventolin 2.5 q.6h p.r.n. 34.Tylenol 650 mg q.6h p.r.n. ALLERGIES: IODINE. PHYSICAL EXAMINATION: Vital signs on presentation: Temperature 102.7, pulse 124, respiratory 20, blood pressure 91/67, pulse ox 97% on 2 L. GENERAL APPEARANCE: Well built, BMI 48%, sitting up awake, tired-appearing, eyes pupils equal. Conjunctivae normal. HEENT external appearance of nose and ears normal. Neck JVD not raised. Mass not palpable. Respiratory effort normal. LUNGS: Diminished breath sounds. Cardiovascular 1st and 2nd sounds normal. Minimal edema. Abdomen distended, soft. Liver and spleen not palpable. Lymphatics: No lymph nodes palpable in neck or axillae. Psychiatry: Able to answer questions. Mood and affect is normal. INVESTIGATIONS: White count 14.3, hemoglobin 12.5, potassium 4.3. UA positive for leuko esterase, WBC. Influenza A and B negative. Chest x-ray shows some gross interstitial markings. ASSESSMENT: 1. Acute urinary tract infection with sepsis present on admission causing acute delirium. 2. Morbid obesity BMI 48.7. 3. Chronic obstructive pulmonary disease in an ex-smoker. 4. Diabetes mellitus type 2, chronically on insulin. 5. Hyperlipidemia. 6. Essential hypertension. 7. Rheumatoid arthritis. 8. Hypothyroid. 9. Peptic ulcer disease. 10.Chronic gait dysfunction uses a walker and a wheelchair. 11.Depression not otherwise specified. 12.Hypothyroid. PLAN: Home medications are resumed. Patient is put on IV antibiotics. Cultures are done. Care was discussed with the patient. The patient started to turn around. Accu-Cheks will be closely followed. EKG shows sinus tachycardia. Copy to Dr. Neville. PHYLLIS / LINN: [id number] /
[2017-08-04] MEDS: CHOLECALCIFEROL 1,000 UNIT TAB PO SCH (16:34)
[2017-08-04] MEDS: ATORVASTATIN 40 MG TAB PO SCH (16:34)
[2017-08-04] MEDS: ASPIRIN 81 MG PO SCH (16:34)
[2017-08-04] MEDS: FERROUS SULFATE 325 MG TAB PO SCH (16:35)
[2017-08-04] MEDS: RIVAROXABAN 20 MG TAB PO SCH (16:35)
[2017-08-04] MEDS: POTASSIUM CHLORIDE ER 20 MEQ TAB.ER PO SCH (16:35)
[2017-08-04] MEDS: HYDROcodone/APAP 10-325MG 1 EACH TAB PO PRN ×2 (16:36→20:35)
[2017-08-04 17:15] LABS: Glucose,Whole Blood 125 mg/dL (75-99)
[2017-08-04] MEDS: cefTRIAXone IN SWFI 2,000 MG/20 ML SYRINGE IVP SCH (18:03)
[2017-08-04 20:55] LABS: Glucose,Whole Blood 111 mg/dL (75-99)
[2017-08-04] MEDS: INSULIN DETEMIR 100 UNIT/ML 10 ML VIAL SQ SCH (21:19)
[2017-08-05] MEDS: SYMBICORT 80-4.5 MCG INHALER INHALATION SCH ×2 (07:29→19:26)
[2017-08-05] MEDS: DULoxetine HCL 30 MG CAPSULE.DR PO SCH ×2 (08:39→17:22)
[2017-08-05] MEDS: DOCUSATE 100 MG CAP PO SCH ×2 (08:39→17:22)
[2017-08-05] MEDS: ALLOPURINOL 100 MG TAB PO SCH (08:39)
[2017-08-05] MEDS: FUROSEMIDE 20 MG TAB PO SCH (08:39)
[2017-08-05] MEDS: POLYETHYLENE GLYCOL 3350 17 GM POWD.PACK PO SCH (08:41)
[2017-08-05] MEDS: SENNOSIDES-DOCUSATE SODIUM 1 EACH TAB PO SCH (08:41)
[2017-08-05] MEDS: LACTOBACILLUS ACIDOPH & BULGAR 1 EACH PACKET PO SCH (08:41)
[2017-08-05] MEDS: LINAGLIPTIN 5 MG TABLET PO SCH (08:41)
[2017-08-05] MEDS: METOPROLOL TARTRATE 12.5 MG TAB PO SCH ×2 (08:41→21:18)
[2017-08-05] MEDS: LEVOTHYROXINE 100 MCG TAB PO SCH (08:41)
--- NOTE | 2017-08-05 08:41 | US ---
EXAMINATION TYPE: US abdomen complete DATE OF EXAM: 08/05/2017 COMPARISON: CT lumbar spine 11/27/2015, renal ultrasound 05/13/2014 CLINICAL HISTORY: abd pain and vomiting, sepsis, fever, UTI . Morbidly obese patient, carrying weight in her abdomen who could only lay on her side for short time, unable to well hold her breath. Extreme technical limitations. EXAM MEASUREMENTS: Liver Length: 16.2 cm Gallbladder Wall: Surgically absent CBD: 0.3 cm Spleen: Surgically absent Right Kidney: 10.5 x 4.9 x 5.0 cm Left Kidney: 11.7 x 5.0 x 4.3 cm Pancreas: Obscured by bowel gas Liver: Slightly enlarged, not well visualized Gallbladder: Surgically absent Evidence for sonographic Tripathi's sign: no CBD: not well visualized Spleen: Surgically absent Right Kidney: upper pole hyperechoic mass seen measuring 3.7 x 3.2 x 3.1, lower pole cyst measuring 7.8 x 6.9 x 8.4cm Left Kidney: cyst measuring 13.4 x 5.8 x 10.7cm, hyperechoic area seen lower measuring 0.9 x 1.0 x 0 .9cm Upper IVC: wnl Abd Aorta: Obscured by overlying bowel gas *Possible midline fluid collection vs. aortic aneurysm vs. other etiology measuring 7.7 x 9.7cm, due to patient body habitus and limitations technologist unable to see with doppler or connect with other organs. Technologist does not believe this to be part of kidney cyst, but it can't be excluded. [place] bol[place]ar, no aneurysm is evident on the sixth 23/09/2015 CT lumbar spine. IMPRESSION: 1. Limited examination due to body habitus, patient condition to cooperate and technical limitations. 2. Solid hyperechoic mass superior pole right kidney, neoplasm should be considered. Additional lawanda p with CT with contrast is recommended. 3. Possible abdominal aortic aneurysm. Other etiologies should be considered such as partial visual ization of known renal cysts. If additional evaluation would be of benefit, CT abdomen pelvis could b e performed. No aneurysm is evident 11/27/2015 CT lumbar spine.
[2017-08-05] MEDS: PANTOPRAZOLE 40 MG TABLET PO SCH (08:42)
[2017-08-05] MEDS: PREGABALIN 100 MG CAP PO SCH ×2 (08:45→21:22)
[2017-08-05] MEDS: HYDROcodone/APAP 10-325MG 1 EACH TAB PO PRN ×3 (09:48→21:22)
[2017-08-05 12:46] LABS: Glucose,Whole Blood 90 mg/dL (75-99)
--- NOTE | 2017-08-05 15:39 | PN ---
PROGRESS NOTE DATE OF SERVICE: 08/05/2017 REASON FOR FOLLOWUP: Sepsis secondary to urinary source. INTERVAL HISTORY: The patient overall feels better and has improved with no fever recorded this morning. The patient is breathing comfortably. Denies having any chest pain. Very minimal cough, not bringing up any sputum. No abdominal pain. No further nausea, vomiting, or any diarrhea. PHYSICAL EXAMINATION: Blood pressure 122/56 with pulse of 79, temperature 97.8. She is 97% on 2 L nasal cannula. General description is an elderly female, lying in bed in no distress. RESPIRATORY SYSTEM: Unlabored breathing with decreased breath sounds at the base, no wheeze. HEART: S1, S2. Regular rate and rhythm. ABDOMEN: Soft, no tenderness. EXTREMITIES: No edema of the feet. LABS: No new labs have been obtained today. Urine culture currently pending. Blood culture so far negative. Patient did have an abdominal ultrasound which raises the possibility of the right upper lobe mass 3.7 to 3.2 cm. DIAGNOSTIC IMPRESSION AND PLAN: Patient admitted to the hospital with sepsis, source likely urinary. The patient did have significantly positive UA. We are waiting for the renal culture to finalize. We will keep the patient on Rocephin 2 g daily. In view of the abnormality seen on the abdominal ultrasound, a CT abdomen and pelvis will be ordered. Unfortunately, cannot use contrast because of her IODINE allergy. Adjust antibiotic further on the basis of cultures and clinical response. Continue supportive care. MMODL / IJN: [id number] /
--- NOTE | 2017-08-05 17:06 | CT ---
EXAMINATION TYPE: CT abdomen pelvis wo con DATE OF EXAM: 08/05/2017 COMPARISON: Ultrasound same date INDICATION: Patient poor historian DLP: 2119.8 mGycm, Automated exposure control for dose reduction was used. CONTRAST: 0 mL of Omnipaque 350. Study performed without Oral Contrast TECHNIQUE: Axial images were obtained from above the diaphragm to the pubic rami in the axial plane a t 5 mm thick sections. Reconstructed images are reviewed on the computer in the coronal plane. FINDINGS: Limited CT sections are obtained the lung bases. There is minimal infiltrate at the edge of the fiel d-of-view within the posterior lateral right lung base. This extends out of the [id number]. Small right pleural effusion is present. There is some infiltrate in the as ago esophageal recess.. Note i s made of coronary artery calcification. CT ABDOMEN: There is an epigastric anterior abdominal wall hernia containing stomach. Obstruction is not identified. There is an additional wide anterior abdominal wall hernia containing multiple loops of small bowel which do not appear obstructed. There is an additional anterior pelvic wall anterior a bdominal wall hernia containing small bowel loops without obstruction. Liver: Normal Spleen: Spleen is surgically absent. Pancreas: Atrophic. Adrenal glands: The adrenal glands are normal. Gallbladder: Surgically absent Kidneys: There is a hypodense mass in the posterior right kidney measuring approximately 3.1 cm in di ameter. This measures -78 Hounsfield units. Lipoma could be considered.. No hydronephrosis is present . Large cysts are present on the mid left and inferior pole right kidney. On the right kidney is me asures 16 Hounsfield units and 8.4 cm in diameter. On the left this measures 10.0 cm and 13 Hounsfiel d units. The right renal cyst likely would account for the appearance on the ultrasound. No suspiciou s aneurysm is evident. No suspicious abscess is evident. Aorta: Vascular calcification is within the aorta. No aneurysmal dilatation is evident. This tapers normally. No enlarged collection is adjacent. No suspicious adenopathy is evident. Inferior vena cava: Normal. CT PELVIS: Loops of bowel within the abdomen and pelvis are normal. Study is without oral contrast limiting the bowel loop evaluation. Note is made of diverticular changes within the sigmoid colon. Appendix: Not identified. No suspicious inflammatory changes are in the right lower quadrant. Urinary bladder: Normal. Genitourinary structures: Uterus appears unremarkable. Adnexal regions are clear. Osseous structures: No suspicious lytic or sclerotic lesions. IMPRESSIONS: 1. Multiple anterior abdominal wall hernias containing loops of bowel without evidence of obstructio n. 2. Large renal cysts bilaterally. 3. Fat type density renal mass posterior right kidney. 4. Sigmoid diverticulosis without acute diverticulitis.
[2017-08-05] MEDS: ASPIRIN 81 MG PO SCH (17:21)
[2017-08-05] MEDS: ATORVASTATIN 40 MG TAB PO SCH (17:21)
[2017-08-05] MEDS: CHOLECALCIFEROL 1,000 UNIT TAB PO SCH (17:22)
[2017-08-05] MEDS: RIVAROXABAN 20 MG TAB PO SCH (17:22)
[2017-08-05] MEDS: FERROUS SULFATE 325 MG TAB PO SCH (17:22)
[2017-08-05] MEDS: POTASSIUM CHLORIDE ER 20 MEQ TAB.ER PO SCH (17:22)
[2017-08-05] MEDS: cefTRIAXone IN SWFI 2,000 MG/20 ML SYRINGE IVP SCH (17:25)
[2017-08-05 17:36] LABS: Glucose,Whole Blood 93 mg/dL (75-99)
[2017-08-05] MEDS: INSULIN DETEMIR 100 UNIT/ML 10 ML VIAL SQ SCH (21:16)
[2017-08-05 21:19] LABS: Glucose,Whole Blood 79 mg/dL (75-99)
[2017-08-06] MEDS: HYDROcodone/APAP 10-325MG 1 EACH TAB PO PRN ×5 (01:33→21:17)
[2017-08-06 06:26] LABS: Anisocytosis Marked; HCT 40.4 % (34.0-46.0); HGB 10.8 gm/dL (11.4-16.0); Hypochromasia Marked; MCH 23.4 pg (25.0-35.0); MCHC 26.8 g/dL (31.0-37.0); MCV 87.3 fL (80.0-100.0); Macrocytosis Slight; Mean Platelet Volume 7.9; Microcytosis Moderate; Platelet Count 317 k/uL (150-450); Poikilocytosis Slight; RBC 4.62 m/uL (3.80-5.40); WBC 5.6 k/uL (3.8-10.6)
[2017-08-06 06:32] LABS: RDW 28.4 % (11.5-15.5)
[2017-08-06 06:37] LABS: Glucose,Whole Blood 95 mg/dL (75-99)
[2017-08-06 06:40] LABS: Anion Gap 6 mmol/L; Blood Urea Nitrogen 10 mg/dL (7-17); Carbon Dioxide 29 mmol/L (22-30); Chloride 103 mmol/L (98-107); Glucose 89 mg/dL (74-99); Potassium 3.9 mmol/L (3.5-5.1); Sodium 138 mmol/L (137-145)
[2017-08-06 07:04] LABS: Eosinophils # (M) 0.45 k/uL (0-0.7); Large Platelets Present; Lymphocytes # (M) 1.74 k/uL (1.0-4.8); Monocytes # (M) 0.73 k/uL (0-1.0); Neutrophils # (M) 2.69 k/uL (1.3-7.7); Neutrophils % (M) 48 %; Nucleated Red Blood Cells 0 /100 WBC (0-0); Total Cells Counted 100
[2017-08-06 07:05] LABS: Target Cells Present
[2017-08-06 07:06] LABS: RBC Fragments Present
[2017-08-06] MEDS: SYMBICORT 80-4.5 MCG INHALER INHALATION SCH ×2 (07:53→20:03)
[2017-08-06] MEDS: DOCUSATE 100 MG CAP PO SCH ×2 (08:31→15:35)
[2017-08-06] MEDS: LACTOBACILLUS ACIDOPH & BULGAR 1 EACH PACKET PO SCH (08:31)
[2017-08-06] MEDS: DULoxetine HCL 30 MG CAPSULE.DR PO SCH ×2 (08:31→15:35)
[2017-08-06] MEDS: POLYETHYLENE GLYCOL 3350 17 GM POWD.PACK PO SCH (08:31)
[2017-08-06] MEDS: LINAGLIPTIN 5 MG TABLET PO SCH (08:32)
[2017-08-06] MEDS: LEVOTHYROXINE 100 MCG TAB PO SCH (08:32)
[2017-08-06] MEDS: METOPROLOL TARTRATE 12.5 MG TAB PO SCH ×2 (08:32→21:10)
[2017-08-06] MEDS: PANTOPRAZOLE 40 MG TABLET PO SCH (08:32)
[2017-08-06] MEDS: SENNOSIDES-DOCUSATE SODIUM 1 EACH TAB PO SCH (08:33)
[2017-08-06] MEDS: FUROSEMIDE 20 MG TAB PO SCH (08:33)
[2017-08-06] MEDS: ALLOPURINOL 100 MG TAB PO SCH (08:33)
[2017-08-06] MEDS: PREGABALIN 100 MG CAP PO SCH ×2 (08:35→21:17)
[2017-08-06 11:45] LABS: Glucose,Whole Blood 137 mg/dL (75-99)
[2017-08-06] MEDS: CHOLECALCIFEROL 1,000 UNIT TAB PO SCH (15:34)
[2017-08-06] MEDS: ATORVASTATIN 40 MG TAB PO SCH (15:34)
[2017-08-06] MEDS: ASPIRIN 81 MG PO SCH (15:34)
[2017-08-06] MEDS: POTASSIUM CHLORIDE ER 20 MEQ TAB.ER PO SCH (15:35)
[2017-08-06] MEDS: RIVAROXABAN 20 MG TAB PO SCH (15:35)
[2017-08-06] MEDS: FERROUS SULFATE 325 MG TAB PO SCH (15:35)
[2017-08-06] MEDS: cefTRIAXone IN SWFI 2,000 MG/20 ML SYRINGE IVP SCH (15:37)
[2017-08-06 16:45] LABS: Glucose,Whole Blood 127 mg/dL (75-99)
--- NOTE | 2017-08-06 18:17 | P.PN ---
Subjective Progress Note Date: 08/05/17 Principal diagnosis: Sepsis secondary to urinary tract infection Patient is a 72-year-old male who is a [facility] correction resident, was therefore right ankle fracture rehab. Patient presented to hospital with urine burning and frequency and lower abdominal discomfort and high-grade fever and confusion on admission. Patient was found her UTI and sepsis. EKG showed sinus tachycardia. 08/05/2017 Today patient denied any complaints of fever or chills. Abdominal pain much improved now patient is being continued on antibiotics for urinary tract infection. Otherwise patient had ultrasound abdomen was done without contrast which showed solid hyperechoic mass superior pole of right kidney, neoplasm should be considered. Possible abdominal aortic aneurysm. CT abdomen with out contrast showed multiple anterior abdominal wall hernias containing loops of bowel without evidence of obstruction. Large renal cyst bilaterally and factor obesity renal mass posterior right kidney and sigmoid diverticulosis without acute diverticulitis. ID is following. Otherwise patient is more awake and oriented today. No complaints of chest pain or shortness of breath. Tolerating oral diet. Next line Current medications reviewed All other review of systems negative except the above Active Medications Acetaminophen (Tylenol Tab) 650 mg PO Q6H PRN PRN Reason: Pain or Fever > 100.5 Last Admin: 08/04/17 01:08 Dose: 650 mg Hydrocodone Bitart/Acetaminophen ([place] 10) 1 each PO Q4HR PRN PRN Reason: Pain Last Admin: 08/06/17 15:33 Dose: 1 each Albuterol Sulfate (Ventolin Nebulized) 2.5 mg INHALATION RT-Q6H PRN PRN Reason: asthma Allopurinol (Zyloprim) 100 mg PO DAILY@0800 [facility] Last Admin: 08/06/17 08:33 Dose: 100 mg Aspirin (Aspirin) 81 mg PO DAILY@1700 [facility] Last Admin: 08/06/17 15:34 Dose: 81 mg Atorvastatin Calcium (Lipitor) 40 mg PO DAILY@1700 [facility] Last Admin: 08/06/17 15:34 Dose: 40 mg Bisacodyl (Dulcolax) 10 mg RECTAL DAILY PRN PRN Reason: Constipation Budesonide/Formoterol Fumarate (Symbicort 80-4.5 Mcg Inhaler) 1 puff INHALATION RT-BID@0800,2100 [facility] Last Admin: 08/06/17 07:53 Dose: 1 puff Ceftriaxone Sodium (Rocephin) 2,000 mg IVP Q24H [facility] Last Admin: 08/06/17 15:37 Dose: 2,000 mg Cholecalciferol (Vitamin D3) 2,000 unit PO DAILY@1700 [facility] Last Admin: 08/06/17 15:34 Dose: 2,000 unit Clonazepam (Klonopin) 0.5 mg PO BID PRN PRN Reason: Anxiety Cyclobenzaprine HCl (Flexeril) 5 mg PO TID PRN PRN Reason: muscle spasms Docusate Sodium (Colace) 200 mg PO BID@0800,1700 [facility] Last Admin: 08/06/17 15:35 Dose: Not Given Duloxetine HCl (Cymbalta) 30 mg PO BID@0800,1700 [facility] Last Admin: 08/06/17 15:35 Dose: 30 mg Ferrous Sulfate (Feosol) 325 mg PO DAILY@1700 [facility] Last Admin: 08/06/17 15:35 Dose: 325 mg Furosemide (Lasix) 20 mg PO DAILY@0800 [facility] Last Admin: 08/06/17 08:33 Dose: 20 mg Insulin Detemir (Levemir) 40 unit SQ HS@2130 [facility] Last Admin: 08/05/17 21:16 Dose: Not Given Lactobacillus Acidoph/Bulgaricus (Lactinex) 1 each PO DAILY@0800 [facility] Last Admin: 08/06/17 08:31 Dose: 1 each Levothyroxine Sodium (Synthroid) 100 mcg PO DAILY [facility] Last Admin: 08/06/17 08:32 Dose: 100 mcg Linagliptin (Tradjenta) 5 mg PO DAILY@0800 [facility] Last Admin: 08/06/17 08:32 Dose: 5 mg Magnesium Hydroxide (Milk Of Magnesia) 2,400 mg PO DAILY PRN PRN Reason: Constipation Metoprolol Tartrate (Lopressor) 12.5 mg PO BID@0800,2100 [facility] Last Admin: 08/06/17 08:32 Dose: 12.5 mg Morphine Sulfate (Morphine Oral Felecia 2mg/Ml) 12 mg PO Q4HR PRN PRN Reason: Severe Pain Naloxone HCl (Narcan) 0.2 mg IV Q2M PRN PRN Reason: Opioid Reversal Ondansetron HCl (Zofran) 4 mg IVP Q8HR PRN PRN Reason: Nausea And Vomiting Last Admin: 08/06/17 11:34 Dose: 4 mg Ondansetron HCl (Zofran) 4 mg PO Q8H PRN PRN Reason: Nausea Pantoprazole Sodium (Protonix) 40 mg PO DAILY [facility] Last Admin: 08/06/17 08:32 Dose: 40 mg Polyethylene Glycol (Miralax) 17 gm PO DAILY@0800 [facility] Last Admin: 08/06/17 08:31 Dose: Not Given Potassium Chloride (K-Dur 20) 20 meq PO DAILY@1700 [facility] Last Admin: 08/06/17 15:35 Dose: 20 meq Pregabalin (Lyrica) 200 mg PO BID@0800,2100 [facility] Last Admin: 08/06/17 08:35 Dose: 200 mg Rivaroxaban (Xarelto) 20 mg PO DAILY@1700 [facility] Last Admin: 08/06/17 15:35 Dose: 20 mg Ropinirole HCl (Requip) 3 mg PO HS@2100 [facility] Last Admin: 08/05/17 21:18 Dose: 3 mg Senna/Docusate Sodium (Senokot-S) 2 each PO DAILY@0800 [facility] Last Admin: 08/06/17 08:33 Dose: Not Given Sodium Biphosphate/Sodium Phosphate (Fleet Adult) 133 ml RECTAL ONCE PRN PRN Reason: Constipation Objective - Vital Signs Vital signs: Vital Signs Temp 97.8 F 08/05/17 12:00 Pulse 79 08/05/17 12:00 Resp 16 08/05/17 12:00 BP 122/56 08/05/17 12:00 Pulse Ox 97 08/05/17 12:00 Intake & Output 08/04/17 08/05/17 08/05/17 18:59 06:59 18:59 Intake Total 200 Output Total 600 Balance -400 Weight 113.5 kg Intake: Oral 200 Output: Urine 600 Other: Voiding Method Bedpan Bedpan # Voids 1 1 # Bowel Movements 1 2 1 - Exam PHYSICAL EXAMINATION: Patient is lying in the bed comfortably, no acute distress, awake alert and oriented.. HEENT: Normocephalic. Neck is supple. Pupils reactive. Nostrils clear. Oral cavity is moist. Ears reveal no drainage. Neck reveals no JVD, carotid bruits, or thyromegaly. CHEST EXAMINATION: Trachea is central. Symmetrical expansion. Lung rodgers clear to auscultation and percussion. CARDIAC: Normal S1, S2 with no gallops. No murmurs ABDOMEN: Soft. Distended with midline scar and ventral hernias. Bowel sounds normal. No organomegaly. No abdominal bruits. Extremities: reveal no edema. No clubbing or cyanosis Neurologically awake, alert, oriented x3 with well-coordinated movements. No focal deficits noted Skin: No rash or skin lesions. Psychiatric: Coperative. Nonsuicidal Musculoskeletal: No joint swelling or deformity. Normal range of motion. - Labs CBC & Chem 7: 08/06/17 05:48 08/06/17 05:48 Labs: Abnormal Lab Results - Last 24 Hours (Table) 08/04/17 08/04/17 Range/Units 17:12 20:51 POC Glucose (mg/dL) 125 H 111 H (75-99) mg/dL Microbiology - Last 24 Hours (Table) 08/03/17 20:10 Urine Culture - Final Urine,Catheterized 08/03/17 19:55 Blood Culture - Preliminary Blood No Growth after 24 hours Assessment and Plan Assessment: Sepsis secondary to acute urinary tract infection Acute delirium. Possible metabolic encephalopathy. Resolved now Morbid obesity with BMI 48.7 COPD with history of smoking Diabetes type 2 insulin-dependent Hyperlipidemia Essential hypertension From rheumatoid arthritis Hypothyroidism next and peptic ulcer disease Chronic gait dysfunction is a walker and wheelchair Depression NOS Recent ankle fracture DVT prophylaxis Plan: Patient will be converted on antibiotics in the form of ceftriaxone and follow- up final urine cultures. Continue the home medications and current management and follow closely. Continue with insulin dosing. Further recommendations based on the clinical course. Prognosis is guarded with multiple medical problems and comorbid conditions. Time with Patient: Greater than 30
--- NOTE | 2017-08-06 18:19 | P.PN ---
Subjective Progress Note Date: 08/06/17 Principal diagnosis: Sepsis secondary to urinary tract infection Patient is a 72-year-old male who is a [facility] resident, was therefore right ankle fracture rehab. Patient presented to hospital with urine burning and frequency and lower abdominal discomfort and high-grade fever and confusion on admission. Patient was found her UTI and sepsis. EKG showed sinus tachycardia. 08/05/2017 Today patient denied any complaints of fever or chills. Abdominal pain much improved now patient is being continued on antibiotics for urinary tract infection. Otherwise patient had ultrasound abdomen was done without contrast which showed solid hyperechoic mass superior pole of right kidney, neoplasm should be considered. Possible abdominal aortic aneurysm. CT abdomen with out contrast showed multiple anterior abdominal wall hernias containing loops of bowel without evidence of obstruction. Large renal cyst bilaterally and factor obesity renal mass posterior right kidney and sigmoid diverticulosis without acute diverticulitis. ID is following. Otherwise patient is more awake and oriented today. No complaints of chest pain or shortness of breath. Tolerating oral diet. 08/06/2017 Patient is more awake and oriented today. No complaints of abdominal pain no nausea vomiting or diarrhea or constipation. Urine culture showed no growth so far. Otherwise no acute overnight issues. CT abdomen without contrast report as above. ID is following. Current medications reviewed All other review of systems negative except the above Active Medications Acetaminophen (Tylenol Tab) 650 mg PO Q6H PRN PRN Reason: Pain or Fever > 100.5 Last Admin: 08/04/17 01:08 Dose: 650 mg Hydrocodone Bitart/Acetaminophen ([place] 10) 1 each PO Q4HR PRN PRN Reason: Pain Last Admin: 08/06/17 15:33 Dose: 1 each Albuterol Sulfate (Ventolin Nebulized) 2.5 mg INHALATION RT-Q6H PRN PRN Reason: asthma Allopurinol (Zyloprim) 100 mg PO DAILY@0800 [facility] Last Admin: 08/06/17 08:33 Dose: 100 mg Aspirin (Aspirin) 81 mg PO DAILY@1700 [facility] Last Admin: 08/06/17 15:34 Dose: 81 mg Atorvastatin Calcium (Lipitor) 40 mg PO DAILY@1700 [facility] Last Admin: 08/06/17 15:34 Dose: 40 mg Bisacodyl (Dulcolax) 10 mg RECTAL DAILY PRN PRN Reason: Constipation Budesonide/Formoterol Fumarate (Symbicort 80-4.5 Mcg Inhaler) 1 puff INHALATION RT-BID@0800,2100 [facility] Last Admin: 08/06/17 07:53 Dose: 1 puff Ceftriaxone Sodium (Rocephin) 2,000 mg IVP Q24H [facility] Last Admin: 08/06/17 15:37 Dose: 2,000 mg Cholecalciferol (Vitamin D3) 2,000 unit PO DAILY@1700 [facility] Last Admin: 08/06/17 15:34 Dose: 2,000 unit Clonazepam (Klonopin) 0.5 mg PO BID PRN PRN Reason: Anxiety Cyclobenzaprine HCl (Flexeril) 5 mg PO TID PRN PRN Reason: muscle spasms Docusate Sodium (Colace) 200 mg PO BID@0800,1700 [facility] Last Admin: 08/06/17 15:35 Dose: Not Given Duloxetine HCl (Cymbalta) 30 mg PO BID@0800,1700 [facility] Last Admin: 08/06/17 15:35 Dose: 30 mg Ferrous Sulfate (Feosol) 325 mg PO DAILY@1700 [facility] Last Admin: 08/06/17 15:35 Dose: 325 mg Furosemide (Lasix) 20 mg PO DAILY@0800 [facility] Last Admin: 08/06/17 08:33 Dose: 20 mg Insulin Detemir (Levemir) 40 unit SQ HS@2130 [facility] Last Admin: 08/05/17 21:16 Dose: Not Given Lactobacillus Acidoph/Bulgaricus (Lactinex) 1 each PO DAILY@0800 [facility] Last Admin: 08/06/17 08:31 Dose: 1 each Levothyroxine Sodium (Synthroid) 100 mcg PO DAILY [facility] Last Admin: 08/06/17 08:32 Dose: 100 mcg Linagliptin (Tradjenta) 5 mg PO DAILY@0800 [facility] Last Admin: 08/06/17 08:32 Dose: 5 mg Magnesium Hydroxide (Milk Of Magnesia) 2,400 mg PO DAILY PRN PRN Reason: Constipation Metoprolol Tartrate (Lopressor) 12.5 mg PO BID@0800,2100 [facility] Last Admin: 08/06/17 08:32 Dose: 12.5 mg Morphine Sulfate (Morphine Oral Felecia 2mg/Ml) 12 mg PO Q4HR PRN PRN Reason: Severe Pain Naloxone HCl (Narcan) 0.2 mg IV Q2M PRN PRN Reason: Opioid Reversal Ondansetron HCl (Zofran) 4 mg IVP Q8HR PRN PRN Reason: Nausea And Vomiting Last Admin: 08/06/17 11:34 Dose: 4 mg Ondansetron HCl (Zofran) 4 mg PO Q8H PRN PRN Reason: Nausea Pantoprazole Sodium (Protonix) 40 mg PO DAILY [facility] Last Admin: 08/06/17 08:32 Dose: 40 mg Polyethylene Glycol (Miralax) 17 gm PO DAILY@0800 [facility] Last Admin: 08/06/17 08:31 Dose: Not Given Potassium Chloride (K-Dur 20) 20 meq PO DAILY@1700 [facility] Last Admin: 08/06/17 15:35 Dose: 20 meq Pregabalin (Lyrica) 200 mg PO BID@0800,2100 [facility] Last Admin: 08/06/17 08:35 Dose: 200 mg Rivaroxaban (Xarelto) 20 mg PO DAILY@1700 [facility] Last Admin: 08/06/17 15:35 Dose: 20 mg Ropinirole HCl (Requip) 3 mg PO HS@2100 [facility] Last Admin: 08/05/17 21:18 Dose: 3 mg Senna/Docusate Sodium (Senokot-S) 2 each PO DAILY@0800 [facility] Last Admin: 08/06/17 08:33 Dose: Not Given Sodium Biphosphate/Sodium Phosphate (Fleet Adult) 133 ml RECTAL ONCE PRN PRN Reason: Constipation Objective - Vital Signs Vital signs: Vital Signs Temp 97.3 F L 08/06/17 15:51 Pulse 89 08/06/17 15:51 Resp 18 08/06/17 15:52 BP 110/51 08/06/17 15:51 Pulse Ox 94 L 08/06/17 15:51 Intake & Output 08/05/17 08/06/17 08/06/17 18:59 06:59 18:59 Intake Total 200 620 Output Total 600 500 350 Balance -400 -500 270 Weight 108 kg Intake: Oral 200 620 Output: Urine 600 500 350 Other: Voiding Method Bedpan # Voids 1 1 # Bowel Movements 1 - Exam PHYSICAL EXAMINATION: Patient is lying in the bed comfortably, no acute distress, awake alert and oriented.. HEENT: Normocephalic. Neck is supple. Pupils reactive. Nostrils clear. Oral cavity is moist. Ears reveal no drainage. Neck reveals no JVD, carotid bruits, or thyromegaly. CHEST EXAMINATION: Trachea is central. Symmetrical expansion. Lung rodgers clear to auscultation and percussion. CARDIAC: Normal S1, S2 with no gallops. No murmurs ABDOMEN: Soft. Distended with midline scar and ventral hernias. Bowel sounds normal. No organomegaly. No abdominal bruits. Extremities: reveal no edema. No clubbing or cyanosis Neurologically awake, alert, oriented x3 with well-coordinated movements. No focal deficits noted Skin: No rash or skin lesions. Psychiatric: Coperative. Nonsuicidal Musculoskeletal: No joint swelling or deformity. Normal range of motion. - Labs CBC & Chem 7: 08/06/17 05:48 08/06/17 05:48 Labs: Abnormal Lab Results - Last 24 Hours (Table) 08/06/17 08/06/17 08/06/17 Range/Units 05:48 11:41 16:42 Hgb 10.8 L (11.4-16.0) gm/dL MCH 23.4 L (25.0-35.0) pg MCHC 26.8 L (31.0-37.0) g/dL RDW 28.4 H (11.5-15.5) % POC Glucose (mg/dL) 137 H 127 H (75-99) mg/dL Microbiology - Last 24 Hours (Table) 08/03/17 19:55 Blood Culture - Preliminary Blood No Growth after 48 hours Assessment and Plan Assessment: Sepsis secondary to acute urinary tract infection. Urine culture showed no growth so far Acute delirium. Possible metabolic encephalopathy. Resolved now Morbid obesity with BMI 48.7 COPD with history of smoking Diabetes type 2 insulin-dependent Hyperlipidemia Essential hypertension From rheumatoid arthritis Hypothyroidism next and peptic ulcer disease Chronic gait dysfunction is a walker and wheelchair Depression NOS Recent ankle fracture DVT prophylaxis Plan: Patient will be converted on antibiotics in the form of ceftriaxone and follow- up final urine cultures. Continue the home medications and current management and follow closely. Continue with insulin dosing. Further recommendations based on the clinical course. Prognosis is guarded with multiple medical problems and comorbid conditions. Time with Patient: Greater than 30
[2017-08-06 20:59] LABS: Glucose,Whole Blood 145 mg/dL (75-99)
[2017-08-06] MEDS: INSULIN DETEMIR 100 UNIT/ML 10 ML VIAL SQ SCH (21:17)
--- NOTE | 2017-08-06 22:49 | PN ---
PROGRESS NOTE DATE OF SERVICE: 08/06/2017. REASON FOR FOLLOWUP: Sepsis, likely pyelonephritis. INTERVAL HISTORY: The patient is afebrile. She has been feeling better. Breathing comfortably. No further nausea, vomiting, or any diarrhea. Denies having any chest pain, shortness of breath, or cough. Her urinary symptoms have improved. PHYSICAL EXAMINATION: Her blood pressure is 110/51, pulse of 89, temperature 97.8, she is 94% on room air. GENERAL DESCRIPTION: She is an elderly female, lying in bed in no distress. RESPIRATORY SYSTEM: Unlabored breathing. Clear to auscultation anteriorly. HEART: S1, S2. Regular rate and rhythm. ABDOMEN: Soft. No tenderness. EXTREMITIES: No edema of the feet. LABS: Hemoglobin is 10.8, white count 5.6 with a BUN of 10, creatinine 0.57. Blood and urine culture so far are coming back negative. CT abdominal and pelvis suggestive of possible fatty tumor of the right kidney. DIAGNOSTIC IMPRESSION AND PLAN: Patient admitted to the hospital with sepsis, source likely urine as the patient did have significant urinary symptoms. The patient, at this time, has responded to Rocephin. That will be continued. Plan to finish therapy with oral Ceftin 500 mg twice a day for another 10 days with close outpatient followup. All questions were answered. MMODL / IJN: [id number] /
[2017-08-07] MEDS: HYDROcodone/APAP 10-325MG 1 EACH TAB PO PRN ×4 (04:20→20:15)
[2017-08-07 06:03] LABS: Glucose,Whole Blood 78 mg/dL (75-99)
[2017-08-07 06:39] LABS: Anion Gap 6 mmol/L; Blood Urea Nitrogen 8 mg/dL (7-17); Calcium 9.4 mg/dL (8.4-10.2); Carbon Dioxide 30 mmol/L (22-30); Chloride 104 mmol/L (98-107); Glucose 60 mg/dL (74-99); Potassium 3.5 mmol/L (3.5-5.1); Sodium 140 mmol/L (137-145)
[2017-08-07 06:49] LABS: Anisocytosis Marked; HCT 37.7 % (34.0-46.0); HGB 10.6 gm/dL (11.4-16.0); Hypochromasia Marked; MCH 23.5 pg (25.0-35.0); MCHC 28.1 g/dL (31.0-37.0); MCV 83.6 fL (80.0-100.0); Macrocytosis Slight; Mean Platelet Volume 8.4; Microcytosis Moderate; Platelet Count 299 k/uL (150-450); Poikilocytosis Slight; RBC 4.51 m/uL (3.80-5.40); WBC 6.5 k/uL (3.8-10.6)
[2017-08-07 06:53] LABS: RDW 28.9 % (11.5-15.5)
[2017-08-07 07:24] LABS: Eosinophils # (M) 0.52 k/uL (0-0.7); Lymphocytes # (M) 2.34 k/uL (1.0-4.8); Monocytes # (M) 0.78 k/uL (0-1.0); Neutrophils # (M) 2.86 k/uL (1.3-7.7); Neutrophils % (M) 44 %; Nucleated Red Blood Cells 0 /100 WBC (0-0); Target Cells Present; Total Cells Counted 100
[2017-08-07 07:25] LABS: Poikilocytosis (M) Present
[2017-08-07 07:26] LABS: Howell-Jolly Bodies Present; Large Platelets Present
[2017-08-07] MEDS: SYMBICORT 80-4.5 MCG INHALER INHALATION SCH ×2 (08:12→19:50)
[2017-08-07] MEDS: ALLOPURINOL 100 MG TAB PO SCH (09:50)
[2017-08-07] MEDS: DULoxetine HCL 30 MG CAPSULE.DR PO SCH ×2 (09:51→20:15)
[2017-08-07] MEDS: LINAGLIPTIN 5 MG TABLET PO SCH (09:51)
[2017-08-07] MEDS: FUROSEMIDE 20 MG TAB PO SCH (09:51)
[2017-08-07] MEDS: LACTOBACILLUS ACIDOPH & BULGAR 1 EACH PACKET PO SCH (09:51)
[2017-08-07] MEDS: DOCUSATE 100 MG CAP PO SCH ×2 (09:51→15:26)
[2017-08-07] MEDS: SENNOSIDES-DOCUSATE SODIUM 1 EACH TAB PO SCH (09:52)
[2017-08-07] MEDS: POLYETHYLENE GLYCOL 3350 17 GM POWD.PACK PO SCH (09:52)
[2017-08-07] MEDS: LEVOTHYROXINE 100 MCG TAB PO SCH (09:52)
[2017-08-07] MEDS: METOPROLOL TARTRATE 12.5 MG TAB PO SCH ×2 (09:52→20:15)
[2017-08-07] MEDS: PANTOPRAZOLE 40 MG TABLET PO SCH (09:53)
[2017-08-07] MEDS: PREGABALIN 100 MG CAP PO SCH ×2 (09:57→20:15)
[2017-08-07 11:41] LABS: Glucose,Whole Blood 103 mg/dL (75-99)
--- NOTE | 2017-08-07 14:56 | PN ---
PROGRESS NOTE DATE OF SERVICE: 08/07/2017 REASON FOR FOLLOWUP: Urinary tract infection/pyelonephritis. INTERVAL HISTORY: The patient is afebrile, she is breathing comfortably. Denies having any chest pain, shortness of breath or cough. No abdominal pain, nausea, vomiting, or any diarrhea. PHYSICAL EXAMINATION: Blood pressure is 111/54 with a pulse of 91, temperature of 98.8. She is 91% on room air. General description is an elderly female, up in the bed in no distress. RESPIRATORY SYSTEM: Unlabored breathing with decreased intensive breath sounds, no wheeze. HEART: S1, S2. Regular rate and rhythm. ABDOMEN: Soft, no tenderness. LABS: Hemoglobin is 10.7, white count is 6.5 with a BUN of 8, creatinine 0.63. DIAGNOSTIC IMPRESSION AND PLAN: Patient admitted to the hospital with sepsis, source likely urinary tract infection/pyelonephritis. Overall improvement on Rocephin. Plan to finish therapy with oral Ceftin 500 mg twice a day for another 10 days. Script was sent to the pharmacy. Continue supportive care. MMODL / IJN: [id number] /
[2017-08-07] MEDS: cefTRIAXone IN SWFI 2,000 MG/20 ML SYRINGE IVP SCH (15:25)
[2017-08-07] MEDS: CHOLECALCIFEROL 1,000 UNIT TAB PO SCH (15:26)
[2017-08-07] MEDS: ASPIRIN 81 MG PO SCH (15:26)
[2017-08-07] MEDS: ATORVASTATIN 40 MG TAB PO SCH (15:26)
[2017-08-07] MEDS: POTASSIUM CHLORIDE ER 20 MEQ TAB.ER PO SCH (15:27)
[2017-08-07] MEDS: RIVAROXABAN 20 MG TAB PO SCH (15:27)
[2017-08-07] MEDS: FERROUS SULFATE 325 MG TAB PO SCH (15:27)
[2017-08-07 16:43] LABS: Glucose,Whole Blood 104 mg/dL (75-99)
[2017-08-07 21:16] LABS: Glucose,Whole Blood 185 mg/dL (75-99)
[2017-08-07] MEDS: INSULIN DETEMIR 100 UNIT/ML 10 ML VIAL SQ SCH (22:17)
[2017-08-08] MEDS: HYDROcodone/APAP 10-325MG 1 EACH TAB PO PRN ×3 (00:27→14:55)
[2017-08-08 01:23] VITALS: RESP 18
[2017-08-08 06:38] LABS: Glucose,Whole Blood 72 mg/dL (75-99)
[2017-08-08] MEDS: SYMBICORT 80-4.5 MCG INHALER INHALATION SCH (07:57)
[2017-08-08] MEDS: DOCUSATE 100 MG CAP PO SCH (09:02)
[2017-08-08] MEDS: PREGABALIN 100 MG CAP PO SCH (09:02)
[2017-08-08] MEDS: METOPROLOL TARTRATE 12.5 MG TAB PO SCH (09:02)
[2017-08-08] MEDS: FUROSEMIDE 20 MG TAB PO SCH (09:03)
[2017-08-08] MEDS: SENNOSIDES-DOCUSATE SODIUM 1 EACH TAB PO SCH (09:03)
[2017-08-08] MEDS: ALLOPURINOL 100 MG TAB PO SCH (09:03)
[2017-08-08] MEDS: PANTOPRAZOLE 40 MG TABLET PO SCH (09:03)
[2017-08-08] MEDS: LINAGLIPTIN 5 MG TABLET PO SCH (09:03)
[2017-08-08] MEDS: DULoxetine HCL 30 MG CAPSULE.DR PO SCH (09:03)
[2017-08-08] MEDS: LEVOTHYROXINE 100 MCG TAB PO SCH (09:03)
[2017-08-08] MEDS: LACTOBACILLUS ACIDOPH & BULGAR 1 EACH PACKET PO SCH (09:04)
[2017-08-08] MEDS: POLYETHYLENE GLYCOL 3350 17 GM POWD.PACK PO SCH (09:04)
[2017-08-08 09:14] VITALS: TEMP 97.7
--- NOTE | 2017-08-08 11:06 | PN ---
PROGRESS NOTE DATE OF SERVICE: 08/08/2017 REASON FOR FOLLOWUP: Sepsis with likely pyelonephritis. INTERVAL HISTORY: The patient is afebrile, she is breathing comfortably. Currently waiting for transfer back to the rehab. Denies having any chest pain, shortness of breath or cough. No abdominal pain, no diarrhea. PHYSICAL EXAMINATION: Her blood pressure is 142/60 with a pulse of 92, temperature 97.7. She is 98% on room air. General description is an elderly female, lying in bed in no distress. RESPIRATORY SYSTEM: Unlabored breathing, clear to auscultation anteriorly. HEART: S1, S2. Regular rate and rhythm. ABDOMEN: Soft, no tenderness. LABS: White count normal 6.5. As of yesterday, blood and urine cultures have been negative. DIAGNOSTIC IMPRESSION AND PLAN: Patient admitted to the hospital with sepsis, source likely urinary. Patient overall improvement on Rocephin with the plan to finish therapy with oral Ceftin for another 10 days. Continue supportive care. MMODL / IJN: [id number] /
[2017-08-08 11:10] LABS: Glucose,Whole Blood 153 mg/dL (75-99)
[2017-08-08 11:14] VITALS: BP 145/67; PULSE 98
--- NOTE | 2017-08-08 14:56 | P.PN ---
Subjective Progress Note Date: 08/07/17 Principal diagnosis: Sepsis secondary to urinary tract infection Patient is a 72-year-old male who is a [facility] resident, was therefore right ankle fracture rehab. Patient presented to hospital with urine burning and frequency and lower abdominal discomfort and high-grade fever and confusion on admission. Patient was found her UTI and sepsis. EKG showed sinus tachycardia. 08/05/2017 Today patient denied any complaints of fever or chills. Abdominal pain much improved now patient is being continued on antibiotics for urinary tract infection. Otherwise patient had ultrasound abdomen was done without contrast which showed solid hyperechoic mass superior pole of right kidney, neoplasm should be considered. Possible abdominal aortic aneurysm. CT abdomen with out contrast showed multiple anterior abdominal wall hernias containing loops of bowel without evidence of obstruction. Large renal cyst bilaterally and factor obesity renal mass posterior right kidney and sigmoid diverticulosis without acute diverticulitis. ID is following. Otherwise patient is more awake and oriented today. No complaints of chest pain or shortness of breath. Tolerating oral diet. 08/06/2017 Patient is more awake and oriented today. No complaints of abdominal pain no nausea vomiting or diarrhea or constipation. Urine culture showed no growth so far. Otherwise no acute overnight issues. CT abdomen without contrast report as above. ID is following. 08/07/2017 . patient denied any complaints of chest pain or shortness of breath. No nausea vomiting or abdominal pain. No fever no chills. No acute overnight issues. Current medications reviewed All other review of systems negative except the above Active Medications Acetaminophen (Tylenol Tab) 650 mg PO Q6H PRN PRN Reason: Pain or Fever > 100.5 Last Admin: 08/04/17 01:08 Dose: 650 mg Hydrocodone Bitart/Acetaminophen ([place] 10) 1 each PO Q4HR PRN PRN Reason: Pain Last Admin: 08/06/17 15:33 Dose: 1 each Albuterol Sulfate (Ventolin Nebulized) 2.5 mg INHALATION RT-Q6H PRN PRN Reason: asthma Allopurinol (Zyloprim) 100 mg PO DAILY@0800 [facility] Last Admin: 08/06/17 08:33 Dose: 100 mg Aspirin (Aspirin) 81 mg PO DAILY@1700 [facility] Last Admin: 08/06/17 15:34 Dose: 81 mg Atorvastatin Calcium (Lipitor) 40 mg PO DAILY@1700 [facility] Last Admin: 08/06/17 15:34 Dose: 40 mg Bisacodyl (Dulcolax) 10 mg RECTAL DAILY PRN PRN Reason: Constipation Budesonide/Formoterol Fumarate (Symbicort 80-4.5 Mcg Inhaler) 1 puff INHALATION RT-BID@0800,2100 [facility] Last Admin: 08/06/17 07:53 Dose: 1 puff Ceftriaxone Sodium (Rocephin) 2,000 mg IVP Q24H [facility] Last Admin: 08/06/17 15:37 Dose: 2,000 mg Cholecalciferol (Vitamin D3) 2,000 unit PO DAILY@1700 [facility] Last Admin: 08/06/17 15:34 Dose: 2,000 unit Clonazepam (Klonopin) 0.5 mg PO BID PRN PRN Reason: Anxiety Cyclobenzaprine HCl (Flexeril) 5 mg PO TID PRN PRN Reason: muscle spasms Docusate Sodium (Colace) 200 mg PO BID@0800,1700 [facility] Last Admin: 08/06/17 15:35 Dose: Not Given Duloxetine HCl (Cymbalta) 30 mg PO BID@0800,1700 [facility] Last Admin: 08/06/17 15:35 Dose: 30 mg Ferrous Sulfate (Feosol) 325 mg PO DAILY@1700 [facility] Last Admin: 08/06/17 15:35 Dose: 325 mg Furosemide (Lasix) 20 mg PO DAILY@0800 [facility] Last Admin: 08/06/17 08:33 Dose: 20 mg Insulin Detemir (Levemir) 40 unit SQ HS@2130 [facility] Last Admin: 08/05/17 21:16 Dose: Not Given Lactobacillus Acidoph/Bulgaricus (Lactinex) 1 each PO DAILY@0800 [facility] Last Admin: 08/06/17 08:31 Dose: 1 each Levothyroxine Sodium (Synthroid) 100 mcg PO DAILY [facility] Last Admin: 08/06/17 08:32 Dose: 100 mcg Linagliptin (Tradjenta) 5 mg PO DAILY@0800 [facility] Last Admin: 08/06/17 08:32 Dose: 5 mg Magnesium Hydroxide (Milk Of Magnesia) 2,400 mg PO DAILY PRN PRN Reason: Constipation Metoprolol Tartrate (Lopressor) 12.5 mg PO BID@0800,2100 [facility] Last Admin: 08/06/17 08:32 Dose: 12.5 mg Morphine Sulfate (Morphine Oral Felecia 2mg/Ml) 12 mg PO Q4HR PRN PRN Reason: Severe Pain Naloxone HCl (Narcan) 0.2 mg IV Q2M PRN PRN Reason: Opioid Reversal Ondansetron HCl (Zofran) 4 mg IVP Q8HR PRN PRN Reason: Nausea And Vomiting Last Admin: 08/06/17 11:34 Dose: 4 mg Ondansetron HCl (Zofran) 4 mg PO Q8H PRN PRN Reason: Nausea Pantoprazole Sodium (Protonix) 40 mg PO DAILY [facility] Last Admin: 08/06/17 08:32 Dose: 40 mg Polyethylene Glycol (Miralax) 17 gm PO DAILY@0800 [facility] Last Admin: 08/06/17 08:31 Dose: Not Given Potassium Chloride (K-Dur 20) 20 meq PO DAILY@1700 [facility] Last Admin: 08/06/17 15:35 Dose: 20 meq Pregabalin (Lyrica) 200 mg PO BID@0800,2100 [facility] Last Admin: 08/06/17 08:35 Dose: 200 mg Rivaroxaban (Xarelto) 20 mg PO DAILY@1700 [facility] Last Admin: 08/06/17 15:35 Dose: 20 mg Ropinirole HCl (Requip) 3 mg PO HS@2100 [facility] Last Admin: 08/05/17 21:18 Dose: 3 mg Senna/Docusate Sodium (Senokot-S) 2 each PO DAILY@0800 [facility] Last Admin: 08/06/17 08:33 Dose: Not Given Sodium Biphosphate/Sodium Phosphate (Fleet Adult) 133 ml RECTAL ONCE PRN PRN Reason: Constipation Objective - Vital Signs Vital signs: Vital Signs Temp 97.9 F 08/07/17 15:15 Pulse 84 08/07/17 15:15 Resp 16 08/07/17 15:15 BP 128/68 08/07/17 15:15 Pulse Ox 93 L 08/07/17 15:15 Intake & Output 08/07/17 08/07/17 08/08/17 06:59 18:59 06:59 Intake Total 520 Output Total 400 Balance 120 Weight 108 kg Intake: Oral 520 Output: Urine 400 Other: Voiding Method Bedpan Bedpan # Voids 0 - Exam PHYSICAL EXAMINATION: Patient is lying in the bed comfortably, no acute distress, awake alert and oriented.. HEENT: Normocephalic. Neck is supple. Pupils reactive. Nostrils clear. Oral cavity is moist. Ears reveal no drainage. Neck reveals no JVD, carotid bruits, or thyromegaly. CHEST EXAMINATION: Trachea is central. Symmetrical expansion. Lung rodgers clear to auscultation and percussion. CARDIAC: Normal S1, S2 with no gallops. No murmurs ABDOMEN: Soft. Distended with midline scar and ventral hernias. Bowel sounds normal. No organomegaly. No abdominal bruits. Extremities: reveal no edema. No clubbing or cyanosis Neurologically awake, alert, oriented x3 with well-coordinated movements. No focal deficits noted Skin: No rash or skin lesions. Psychiatric: Coperative. Nonsuicidal Musculoskeletal: No joint swelling or deformity. Normal range of motion. - Labs CBC & Chem 7: 08/07/17 05:52 08/07/17 05:52 Labs: Abnormal Lab Results - Last 24 Hours (Table) 08/07/17 08/07/17 08/07/17 Range/Units 05:52 05:52 11:34 Hgb 10.6 L (11.4-16.0) gm/dL MCH 23.5 L (25.0-35.0) pg MCHC 28.1 L (31.0-37.0) g/dL RDW 28.9 H (11.5-15.5) % Glucose 60 L (74-99) mg/dL POC Glucose (mg/dL) 103 H (75-99) mg/dL 08/07/17 08/07/17 Range/Units 16:40 21:15 Hgb (11.4-16.0) gm/dL MCH (25.0-35.0) pg MCHC (31.0-37.0) g/dL RDW (11.5-15.5) % Glucose (74-99) mg/dL POC Glucose (mg/dL) 104 H 185 H (75-99) mg/dL Microbiology - Last 24 Hours (Table) 08/03/17 19:55 Blood Culture - Preliminary Blood No Growth after 72 hours Assessment and Plan Assessment: Sepsis secondary to acute urinary tract infection. Urine culture showed no growth so far Acute delirium. Possible metabolic encephalopathy. Resolved now Abdominal ventral hernia multiple with bowel loops. No obstruction noted per CT. Outpatient surgery clinic follow-up recommendations Morbid obesity with BMI 48.7 COPD with history of smoking Diabetes type 2 insulin-dependent Hyperlipidemia Essential hypertension From rheumatoid arthritis Hypothyroidism next and peptic ulcer disease Chronic gait dysfunction is a walker and wheelchair Depression NOS Recent ankle fracture DVT prophylaxis Plan: Patient will be converted on antibiotics in the form of ceftriaxone and changed to Ceftin as per ID recommendations. Urine culture showed no growth.. Continue the home medications and current management and follow closely. Continue with insulin dosing. Further recommendations based on the clinical course. Prognosis is guarded with multiple medical problems and comorbid conditions.
--- NOTE | 2017-08-08 14:59 | P.DS ---
Providers Date of admission: 08/03/17 21:06 Expected date of discharge: 08/08/17 Attending physician: Juan Macias Consults: 08/04/17 00:10 Consult Physician Stat Consulting Provider: Aditya Ramos Consult Reason/Comments: Sepsis Do you want consulting provider notified?: Yes Primary care physician: [facility] Course: Sepsis secondary to acute urinary tract infection. Urine culture showed no growth so far Acute delirium. Possible metabolic encephalopathy. Resolved now Abdominal ventral hernia multiple with bowel loops. No obstruction noted per CT. Outpatient surgery clinic follow-up recommendations Morbid obesity with BMI 48.7 COPD with history of smoking Diabetes type 2 insulin-dependent Hyperlipidemia Essential hypertension From rheumatoid arthritis Hypothyroidism next and peptic ulcer disease Chronic gait dysfunction is a walker and wheelchair Depression NOS Recent ankle fracture DVT prophylaxis Hospital course Patient is a 72-year-old male who is a [facility] resident, was therefore right ankle fracture rehab. Patient presented to hospital with urine burning and frequency and lower abdominal discomfort and high-grade fever and confusion on admission. Patient was found her UTI and sepsis. EKG showed sinus tachycardia. 08/05/2017 Today patient denied any complaints of fever or chills. Abdominal pain much improved now patient is being continued on antibiotics for urinary tract infection. Otherwise patient had ultrasound abdomen was done without contrast which showed solid hyperechoic mass superior pole of right kidney, neoplasm should be considered. Possible abdominal aortic aneurysm. CT abdomen with out contrast showed multiple anterior abdominal wall hernias containing loops of bowel without evidence of obstruction. Large renal cyst bilaterally and factor obesity renal mass posterior right kidney and sigmoid diverticulosis without acute diverticulitis. ID is following. Otherwise patient is more awake and oriented today. No complaints of chest pain or shortness of breath. Tolerating oral diet. 08/06/2017 Patient is more awake and oriented today. No complaints of abdominal pain no nausea vomiting or diarrhea or constipation. Urine culture showed no growth so far. Otherwise no acute overnight issues. CT abdomen without contrast report as above. ID is following. 08/07/2017 . patient denied any complaints of chest pain or shortness of breath. No nausea vomiting or abdominal pain. No fever no chills. No acute overnight issues. 08/08/2017 Patient was seen and examined. No acute overnight issues. Patient is stable to be discharged to [facility] today. Patient was started on antibiotics in the form of ceftriaxone and changed to Ceftin as per ID recommendations. Urine culture showed no growth.. Continued the home medications and insulin dosing. Further recommendations based on the clinical course. Patient did improve clinically. Stable to be discharged to [facility] today. Physical examination Patient is lying in the bed comfortably, no acute distress, awake alert and oriented.. HEENT: Normocephalic. Neck is supple. Pupils reactive. Nostrils clear. Oral cavity is moist. Ears reveal no drainage. Neck reveals no JVD, carotid bruits, or thyromegaly. CHEST EXAMINATION: Trachea is central. Symmetrical expansion. Lung rodgers clear to auscultation and percussion. CARDIAC: Normal S1, S2 with no gallops. No murmurs ABDOMEN: Soft. Distended with midline scar and ventral hernias. Bowel sounds normal. No organomegaly. No abdominal bruits. Extremities: reveal no edema. No clubbing or cyanosis Neurologically awake, alert, oriented x3 with well-coordinated movements. No focal deficits noted Skin: No rash or skin lesions. Psychiatric: Coperative. Nonsuicidal Musculoskeletal: No joint swelling or deformity. Normal range of motion. Patient Condition at Discharge: Good Plan - Discharge Summary Discharge Rx Participant: Yes New Discharge Prescriptions: New Cefuroxime Axetil [Ceftin] 500 mg PO BID #20 tab Continue clonazePAM [KlonoPIN] 0.5 mg PO BID PRN PRN Reason: Anxiety sitaGLIPtin [Januvia] 100 mg PO DAILY@0800 Aspirin 81 mg PO DAILY@1700 rOPINIRole HCL [Requip] 3 mg PO HS@2100 DULoxetine HCL [Cymbalta] 30 mg PO BID@0800,1700 Insulin Glargine [Lantus] 40 unit SQ HS@2130 Sennosides-Docusate Sodium [Senokot-S] 2 tab PO DAILY@0800 Rivaroxaban [Xarelto] 20 mg PO DAILY@1700 Omeprazole [PriLOSEC] 20 mg PO DAILY Allopurinol [Zyloprim] 100 mg PO DAILY@0800 Levothyroxine Sodium [Synthroid] 100 mcg PO DAILY Insulin Lispro [humaLOG Kwikpen] See Protocol SQ ACHS Atorvastatin [Lipitor] 40 mg PO DAILY@1700 Ondansetron [Zofran] 4 mg PO Q8H PRN PRN Reason: Nausea Magnesium Hydroxide [Milk of Magnesia] 2,400 mg PO DAILY PRN PRN Reason: Constipation HYDROcodone/APAP 10-325MG [Davy 10-325] 1 tab PO Q4HR PRN PRN Reason: Pain Na Phos,M-B/Na Phos,Di-Ba [Fleet Adult] 133 ml RECTAL ONCE PRN PRN Reason: Constipation Bisacodyl [Dulcolax] 10 mg RECTAL DAILY PRN PRN Reason: Constipation Pregabalin [Lyrica] 200 mg PO BID@0800,2100 Potassium Chloride ER [K-Dur 20] 20 meq PO DAILY@1700 Polyethylene Glycol 3350 [Miralax] 17 gm PO DAILY@0800 Metoprolol Tartrate [Lopressor] 12.5 mg PO BID@0800,2100 L.acidoph,Paracasei, B.lactis [Probiotic] 1 cap PO DAILY@0800 Glucerna Shake 1 can PO BID@0800,1700 Furosemide [Lasix] 20 mg PO DAILY@0800 Ferrous Sulfate [Feosol] 325 mg PO DAILY@1700 Docusate Sodium [Dok] 200 mg PO BID@0800,1700 Cyclobenzaprine [Flexeril] 5 mg PO TID PRN PRN Reason: muscle spasms Cholecalciferol (Vitamin D3) [Vitamin D3] 2,000 unit PO DAILY@1700 Budesonide/Formoterol Fumarate [Symbicort 80-4.5 Mcg Inhaler] 1 puff INHALATION RT-BID@0800,2100 Amino Acids/Protein Hydrolys [Pro-Stat Supplement] 30 ml PO DAILY@0800 Albuterol Nebulized [Ventolin Nebulized] 2.5 mg INHALATION RT-Q6H PRN PRN Reason: asthma Acetaminophen Tab [Tylenol] 650 mg PO Q6H PRN PRN Reason: Pain Or Fever > 100.5 Discontinued cefTRIAXone [Rocephin] 1,000 mg IV Q24HR Discharge Medication List Aspirin 81 mg PO DAILY@1700 10/09/13 [History] clonazePAM [KlonoPIN] 0.5 mg PO BID PRN 10/09/13 [History] sitaGLIPtin [Januvia] 100 mg PO DAILY@0800 10/09/13 [History] DULoxetine HCL [Cymbalta] 30 mg PO BID@0800,1700 11/27/15 [History] rOPINIRole HCL [Requip] 3 mg PO HS@209911/27/15 [History] Insulin Glargine [Lantus] 40 unit SQ HS@212911/28/15 [History] Rivaroxaban [Xarelto] 20 mg PO DAILY@169905/12/16 [History] Sennosides-Docusate Sodium [Senokot-S] 2 tab PO DAILY@0805/12/16 [History] Allopurinol [Zyloprim] 100 mg PO DAILY@0809/20/16 [History] Levothyroxine Sodium [Synthroid] 100 mcg PO DAILY 09/20/16 [History] Omeprazole [PriLOSEC] 20 mg PO DAILY 09/20/16 [History] Atorvastatin [Lipitor] 40 mg PO DAILY@169905/02/17 [History] Insulin Lispro [humaLOG Kwikpen] See Protocol SQ ACHS 05/02/17 [History] Acetaminophen Tab [Tylenol] 650 mg PO Q6H PRN 08/03/17 [History] Albuterol Nebulized [Ventolin Nebulized] 2.5 mg INHALATION RT-Q6H PRN 08/03/17 [ History] Amino Acids/Protein Hydrolys [Pro-Stat Supplement] 30 ml PO DAILY@79908/03/17 [History] Bisacodyl [Dulcolax] 10 mg RECTAL DAILY PRN 08/03/17 [History] Budesonide/Formoterol Fumarate [Symbicort 80-4.5 Mcg Inhaler] 1 puff INHALATION RT-BID@0800,209908/03/17 [History] Cholecalciferol (Vitamin D3) [Vitamin D3] 2,000 unit PO DAILY@169908/03/17 [ History] Cyclobenzaprine [Flexeril] 5 mg PO TID PRN 08/03/17 [History] Docusate Sodium [Dok] 200 mg PO BID@0800,169908/03/17 [History] Ferrous Sulfate [Feosol] 325 mg PO DAILY@169908/03/17 [History] Furosemide [Lasix] 20 mg PO DAILY@0808/03/17 [History] Glucerna Shake 1 can PO BID@0800,169908/03/17 [History] HYDROcodone/APAP 10-325MG [Davy 10-325] 1 tab PO Q4HR PRN 08/03/17 [History] L.acidoph,Paracasei, B.lactis [Probiotic] 1 cap PO DAILY@0800 08/03/17 [History] Magnesium Hydroxide [Milk of Magnesia] 2,400 mg PO DAILY PRN 08/03/17 [History] Metoprolol Tartrate [Lopressor] 12.5 mg PO BID@0800,2100 08/03/17 [History] Na Phos,M-B/Na Phos,Di-Ba [Fleet Adult] 133 ml RECTAL ONCE PRN 08/03/17 [History ] Ondansetron [Zofran] 4 mg PO Q8H PRN 08/03/17 [History] Polyethylene Glycol 3350 [Miralax] 17 gm PO DAILY@0800 08/03/17 [History] Potassium Chloride ER [K-Dur 20] 20 meq PO DAILY@1700 08/03/17 [History] Pregabalin [Lyrica] 200 mg PO BID@0800,2100 08/03/17 [History] Cefuroxime Axetil [Ceftin] 500 mg PO BID #20 tab 08/07/17 [Rx] Follow up Appointment(s)/Referral(s): Paramjit Neville DO [Primary Care Provider] - 1-2 days Aditya Ramos MD [STAFF PHYSICIAN] - 1 Week Discharge Disposition: TRANSFER TO SNF/ECF
== END 2017-08-08 16:04 | DRG 871 ==
LOC: EC 19:03 → 6SEL 21:06
PROVIDERS: ADMIT Hospitalist; ATTEND Hospitalist
DX: A41.9 Sepsis, unspecified organism (principal); G93.41 Metabolic encephalopathy; J44.9 Chronic obstructive pulmonary disease, unspecified; E66.01 Morbid (severe) obesity due to excess calories; E11.9 Type 2 diabetes mellitus without complications; N28.1 Cyst of kidney, acquired; Z68.42 Body mass index [BMI] 45.0-49.9, adult; N12 Tubulo-interstitial nephritis, not specified as acute or chronic; E78.5 Hyperlipidemia, unspecified; I10 Essential (primary) hypertension; M06.9 Rheumatoid arthritis, unspecified; E03.9 Hypothyroidism, unspecified; R26.9 Unspecified abnormalities of gait and mobility; F32.9 Major depressive disorder, single episode, unspecified; K43.9 Ventral hernia without obstruction or gangrene; K57.30 Diverticulosis of large intestine without perforation or abscess without bleeding; N28.89 Other specified disorders of kidney and ureter; K27.9 Peptic ulcer, site unspecified, unspecified as acute or chronic, without hemorrhage or perforation; Z79.899 Other long term (current) drug therapy; Z79.82 Long term (current) use of aspirin; Z79.51 Long term (current) use of inhaled steroids; Z79.4 Long term (current) use of insulin; Z79.01 Long term (current) use of anticoagulants; Z87.891 Personal history of nicotine dependence; Z79.891 Long term (current) use of opiate analgesic; Z90.89 Acquired absence of other organs; Z90.49 Acquired absence of other specified parts of digestive tract; Z90.81 Acquired absence of spleen; Z96.651 Presence of right artificial knee joint; Z86.711 Personal history of pulmonary embolism; Z86.718 Personal history of other venous thrombosis and embolism; Z87.11 Personal history of peptic ulcer disease; Z87.01 Personal history of pneumonia (recurrent); Z85.72 Personal history of non-Hodgkin lymphomas; Z91.041 Radiographic dye allergy status
CPT/HCPCS: 36415; 51701; 71046; 74176; 76700; 80048; 80053; 81001; 82550; 82553; 83605; 84484; 85025; 85610; 85730; 87040; 87086; 87502; 93005; 94640; 96360; 96365; 96366; 96375; 96376; 99291

== ENCOUNTER 2017-09-07 14:59 | Emergency (ER) | payer MEDICARE ==
[2017-09-07] MEDS ORDERED: cefTRIAXone IN SWFI 1,000 MG/10 ML SYRINGE IVP STA (15:13)
[2017-09-07] MEDS ORDERED: VANCOMYCIN IV PER PHARMACY 1 EACH MISC MISCELLANE PRN (15:13)
[2017-09-07] MEDS ORDERED: ACETAMINOPHEN TAB 325 MG TAB PO STA (15:13)
[2017-09-07] MEDS ORDERED: VANCOMYCIN 1,750 MG in SODIUM CHLORIDE 0.9% 250 ML IVPB STA (15:15)
[2017-09-07] MEDS ORDERED: MORPHINE SULFATE 4MG/4ML SYRG IVP STA (15:20)
[2017-09-07] MEDS ORDERED: SODIUM CHLORIDE 0.9% 500 ML IV ONE ×2 (15:20→17:46)
--- NOTE | 2017-09-07 15:27 | ED ---
General Adult HPI - General Chief complaint: Extremity Injury, Lower Stated complaint: Sepsis Time Seen by Provider: 09/07/17 15:07 Source: patient, EMS, RN notes reviewed, old records reviewed Mode of arrival: EMS Limitations: physical limitation - History of Present Illness Initial comments: 72-year-old presenting with fever chills and right lower extremity pain swelling and erythema. Patient is 2 months postop right ankle. Status post fracture. Ankle has been doing well, over the past several days she has had worsening pain swelling and redness to the history. She developed fever and chills within the last several hours. [facility] She has had a mild cough and rhinorrhea. No significant dyspnea. No chest pain. No abdominal pain nausea vomiting. - Related Data Home Medications Medication Instructions Recorded Confirmed clonazePAM [KlonoPIN] 0.5 mg PO BID PRN 10/09/13 09/07/17 sitaGLIPtin [Januvia] 100 mg PO DAILY@0800 10/09/13 09/07/17 DULoxetine HCL [Cymbalta] 30 mg PO BID@0800,1700 11/27/15 09/07/17 rOPINIRole HCL [Requip] 3 mg PO HS@2100 11/27/15 09/07/17 Insulin Glargine [Lantus] 40 unit SQ HS@2130 11/28/15 09/07/17 Rivaroxaban [Xarelto] 20 mg PO DAILY@1700 05/12/16 09/07/17 Allopurinol [Zyloprim] 100 mg PO DAILY@0800 09/20/16 09/07/17 Levothyroxine Sodium [Synthroid] 100 mcg PO DAILY 09/20/16 09/07/17 Omeprazole [PriLOSEC] 20 mg PO DAILY@0700 09/20/16 09/07/17 Atorvastatin [Lipitor] 40 mg PO DAILY@1700 05/02/17 09/07/17 Insulin Lispro [humaLOG Kwikpen] See Protocol SQ ACHS PRN 05/02/17 09/07/17 Acetaminophen Tab [Tylenol] 650 mg PO Q6H PRN 08/03/17 09/07/17 Amino Acids/Protein Hydrolys 30 ml PO DAILY@0800 08/03/17 09/07/17 [Pro-Stat Supplement] Bisacodyl [Dulcolax] 10 mg RECTAL DAILY PRN 08/03/17 09/07/17 Budesonide/Formoterol Fumarate 1 puff INHALATION RT-BID@0800,209908/03/1709/07 [Symbicort 80-4.5 Mcg Inhaler] Cholecalciferol (Vitamin D3) 2,000 unit PO DAILY@169908/03/17 09/07/17 [Vitamin D3] Cyclobenzaprine [Flexeril] 5 mg PO TID PRN 08/03/17 09/07/17 Docusate Sodium [Dok] 200 mg PO BID@0800,169908/03/17 09/07/17 Ferrous Sulfate [Feosol] 325 mg PO DAILY@169908/03/17 09/07/17 Furosemide [Lasix] 20 mg PO DAILY@79908/03/17 09/07/17 Glucerna Shake 1 can PO DAILY@169908/03/17 09/07/17 HYDROcodone/APAP 10-325MG [[place] 1 tab PO Q4HR PRN 08/03/17 09/07/17 10-325] L.acidoph,Paracasei, B.lactis 1 cap PO DAILY@79908/03/17 09/07/17 [Probiotic] Magnesium Hydroxide [Milk of 2,400 mg PO DAILY PRN 08/03/17 09/07/17 Magnesia] Metoprolol Tartrate [Lopressor] 12.5 mg PO BID@0800,209908/03/17 09/07/17 Na Phos,M-B/Na Phos,Di-Ba [Fleet 133 ml RECTAL ONCE PRN 08/03/17 09/07/17 Adult] Polyethylene Glycol 3350 [Miralax] 17 gm PO DAILY@79908/03/17 09/07/17 Potassium Chloride ER [K-Dur 20] 20 meq PO DAILY@169908/03/17 09/07/17 Pregabalin [Lyrica] 200 mg PO BID@0800,209908/03/17 09/07/17 Albuterol Inhaler [Ventolin Hfa 2 puff INHALATION RT-Q4H PRN 09/07/17 09/07/17 Inhaler] Ciprofloxacin HCl [Cipro] 500 mg PO Q12HR 09/07/17 09/07/17 Insulin Lispro [humaLOG Kwikpen] 3 unit SQ TID@0700,1100,1700 09/07/17 09/07/17 Mirabegron [Myrbetriq] 50 mg PO DAILY 09/07/17 09/07/17 Ondansetron [Zofran] 4 mg PO Q8HR PRN 09/07/17 09/07/17 Sennosides/Docusate Sodium [Shayy 2 tab PO DAILY PRN 09/07/17 09/07/17 Colace] Allergies Allergy/AdvReac Type Severity Reaction Status Date / Time iodine Allergy Unknown Verified 09/07/17 15:32 Review of Systems ROS Statement: Those systems with pertinent positive or pertinent negative responses have been documented in the HPI. ROS Other: All systems not noted in ROS Statement are negative. Past Medical History Past Medical History: Cancer, COPD, Diabetes Mellitus, Deep Vein Thrombosis (DVT ), Hyperlipidemia, Hypertension, Pneumonia, Pulmonary Embolus (PE), Rheumatoid Arthritis (RA), Skin Disorder, Thyroid Disorder Additional Past Medical History / Comment(s): stated "was to have total left knee surgery and and something is wrong with the blood work and now needing to have EGD & colonoscopy".mult ulcers to stomach,chest and breast-unk cause has had for over a yr-seen at [facility],"[id number] with spleenectomy and radiation,DVTs & PE yrs ago.Uses walker and w/c. History of Any Multi-Drug Resistant Organisms: None Reported Past Surgical History: Appendectomy, Section, Cholecystectomy, Orthopedic Surgery Additional Past Surgical History / Comment(s): total rt knee Jan 2017, Splenectomy, Carpal tunnel release, rotator cuff Past Anesthesia/Blood Transfusion Reactions: No Reported Reaction Past Psychological History: Depression Smoking Status: Former smoker Past Alcohol Use History: None Reported Past Drug Use History: None Reported - Past Family History Son(s) Family Medical History: No Reported History Additional Family Medical History / Comment(s): She relates that her parents of old age her mother was about 90 father was 88, without sniffing and medical troubles. She does relate that her son committed suicide but her daughter is quite healthy. General Exam Limitations: physical limitation General appearance: alert, in no apparent distress Head exam: Present: atraumatic, normocephalic Eye exam: Present: normal appearance, PERRL, EOMI Neck exam: Present: normal inspection, tenderness. Absent: meningismus Respiratory exam: Present: normal lung sounds bilaterally. Absent: respiratory distress, wheezes Cardiovascular Exam: Present: normal rhythm, tachycardia GI/Abdominal exam: Present: soft, distended, hernia. Absent: tenderness Extremities exam: Present: pedal edema, joint swelling, other (Significant erythema, open wound on the lateral aspect of the right lower extremity with some purulent material. Swelling progresses to the knee. Significant tenderness on palpation.) Course Vital Signs 09/07/17 09/07/17 09/07/17 15:03 15:53 17:25 Temperature 101.5 F H Pulse Rate 124 H 121 H 123 H Respiratory 20 18 20 Rate Blood Pressure 143/63 129/55 104/53 O2 Sat by Pulse 91 L 91 L Oximetry - Reevaluation(s) Reevaluation #1: 09/07/17 17:[address] Jarrett, orthopedic surgeon [facility] who did operate on the patient in June. He requests patient be transferred to [facility] [place] [facility] for evaluation. EKG Findings - EKG Comments: EKG Findings:: EKG sinus tachycardia left atrial enlargement, left anterior fascicular block, rate of 121, AL interval 150, QRS duration 96, QTC 450 Medical Decision Making - Medical Decision Making 72-year-old female presenting with fever, chills, and hot swollen right lower extremity. There is some incisional drainage and a 1.5 cm ulceration approximately 1 cm anterior to her incision with purulence. The leg is erythematous to just below the knee. No crepitus noted. Significant soft tissue swelling. Laboratory studies reveal white blood cell count 25.4, hemoglobin 14.8, urinalysis does show mild leukocytosis at 101. Patient receives ceftriaxone and vancomycin in the emergency department. Chest x-ray obtained, negative for focal pneumonia. Ultrasound of the lower extremity negative for DVT. CT is obtained for concern of soft tissue gas and fasciitis given the significant pain. This is negative for soft tissue gas, negative for focal fluid collection. Blood culture and wound culture pending. Case discussed with patient's orthopedic surgeon Dr. Jarrett, patient will be transferred to ER at [facility] [place] [facility]. Accepting physician in the ER is Dr. Camacho. - Lab Data Result diagrams: 09/07/17 15:09 09/07/17 15:09 Lab Results 09/07/17 09/07/17 09/07/17 Range/Units 15: 15: 15:09 WBC 25.4 H* (3.8-10.6) k/uL RBC 5.33 (3.80-5.40) m/uL Hgb 14.8 (11.4-16.0) gm/dL Hct 49.6 H (34.0-46.0) % MCV 93.0 D (80.0-100.0) fL MCH 27.8 (25.0-35.0) pg MCHC 29.8 L (31.0-37.0) g/dL RDW 25.8 H (11.5-15.5) % Plt Count 313 (150-450) k/uL Neutrophils % [employer] Neutrophils % (Manual) 79 % Lymphocytes % [employer] Lymphocytes % (Manual) 14 % Monocytes % [employer] Monocytes % (Manual) 6 % Eosinophils % [employer] Eosinophils % (Manual) 1 % Basophils % [employer] Neutrophils # [employer] Neutrophils # (Manual) 20.07 H (1.3-7.7) k/uL Lymphocytes # [employer] Lymphocytes # (Manual) 3.56 (1.0-4.8) k/uL Monocytes # [employer] Monocytes # (Manual) 1.52 H (0-1.0) k/uL Eosinophils # [employer] Eosinophils # (Manual) 0.25 (0-0.7) k/uL Basophils # [employer] Nucleated RBCs 0 (0-0) /100 WBC Polychromasia Present Hypochromasia Moderate Anisocytosis Marked Microcytosis Slight Macrocytosis Slight PT (9.0-12.0) sec INR (<1.2) APTT (22.0-30.0) sec Sodium 138 (137-145) mmol/L Potassium 4.5 (3.5-5.1) mmol/L Chloride 101 (98-107) mmol/L Carbon Dioxide 26 (22-30) mmol/L Anion Gap 11 mmol/L BUN 18 H (7-17) mg/dL Creatinine 0.68 (0.52-1.04) mg/dL Est GFR (CKD-EPI)AfAm >90 (>60 ml/min/1.73 sqM) Est GFR (CKD-EPI)NonAf 87 (>60 ml/min/1.73 sqM) Glucose 210 H (74-99) mg/dL Plasma Lactic Acid Gee 1.7 (0.7-2.0) mmol/L Calcium 10.0 (8.4-10.2) mg/dL Total Bilirubin 0.4 (0.2-1.3) mg/dL AST 26 (14-36) U/L ALT 21 (9-52) U/L Alkaline Phosphatase 95 (38-126) U/L Total Protein 7.1 (6.3-8.2) g/dL Albumin 3.7 (3.5-5.0) g/dL Urine Color Urine Appearance (Clear) Urine pH (5.0-8.0) Ur Specific [place] (1.001-1.035) Urine Protein (Negative) Urine Glucose (UA) (Negative) Urine Ketones (Negative) Urine Blood (Negative) Urine Nitrite (Negative) Urine Bilirubin (Negative) Urine Urobilinogen (<2.0) mg/dL Ur Leukocyte Esterase (Negative) Urine RBC (0-5) /hpf Urine WBC (0-5) /hpf Ur Squamous Epith Cells (0-4) /hpf Urine Bacteria (None) /hpf Urine Mucus (None) /hpf Urine Yeast (Budding) (None) /hpf Influenza Type A RNA (Not Detectd) Influenza Type B (PCR) (Not Detectd) 09/07/17 09/07/17 09/07/17 Range/Units 15:09 15:18 16:02 WBC (3.8-10.6) k/uL RBC (3.80-5.40) m/uL Hgb (11.4-16.0) gm/dL Hct (34.0-46.0) % MCV (80.0-100.0) fL MCH (25.0-35.0) pg MCHC (31.0-37.0) g/dL RDW (11.5-15.5) % Plt Count (150-450) k/uL Neutrophils % Neutrophils % (Manual) % Lymphocytes % Lymphocytes % (Manual) % Monocytes % Monocytes % (Manual) % Eosinophils % Eosinophils % (Manual) % Basophils % Neutrophils # Neutrophils # (Manual) (1.3-7.7) k/uL Lymphocytes # Lymphocytes # (Manual) (1.0-4.8) k/uL Monocytes # Monocytes # (Manual) (0-1.0) k/uL Eosinophils # Eosinophils # (Manual) (0-0.7) k/uL Basophils # Nucleated RBCs (0-0) /100 WBC Polychromasia Hypochromasia Anisocytosis Microcytosis Macrocytosis PT 11.8 (9.0-12.0) sec INR 1.2 H (<1.2) APTT 30.3 H (22.0-30.0) sec Sodium (137-145) mmol/L Potassium (3.5-5.1) mmol/L Chloride (98-107) mmol/L Carbon Dioxide (22-30) mmol/L Anion Gap mmol/L BUN (7-17) mg/dL Creatinine (0.52-1.04) mg/dL Est GFR (CKD-EPI)AfAm (>60 ml/min/1.73 sqM) Est GFR (CKD-EPI)NonAf (>60 ml/min/1.73 sqM) Glucose (74-99) mg/dL Plasma Lactic Acid Gee (0.7-2.0) mmol/L Calcium (8.4-10.2) mg/dL Total Bilirubin (0.2-1.3) mg/dL AST (14-36) U/L ALT (9-52) U/L Alkaline Phosphatase (38-126) U/L Total Protein (6.3-8.2) g/dL Albumin (3.5-5.0) g/dL Urine Color Light Yellow Urine Appearance Cloudy H (Clear) Urine pH 7.0 (5.0-8.0) Ur Specific [place] 1.011 (1.001-1.035) Urine Protein Negative (Negative) Urine Glucose (UA) 1+ H (Negative) Urine Ketones Negative (Negative) Urine Blood Negative (Negative) Urine Nitrite Negative (Negative) Urine Bilirubin Negative (Negative) Urine Urobilinogen <2.0 (<2.0) mg/dL Ur Leukocyte Esterase Large H (Negative) Urine RBC 1 (0-5) /hpf Urine WBC 101 H (0-5) /hpf Ur Squamous Epith Cells 2 (0-4) /hpf Urine Bacteria Rare H (None) /hpf Urine Mucus Rare H (None) /hpf Urine Yeast (Budding) Few H (None) /hpf Influenza Type A RNA Not Detected (Not Detectd) Influenza Type B (PCR) Not Detected (Not Detectd) Critical Care Time Critical Care Time: Yes Total Critical Care Time: 35 Disposition Clinical Impression: Cellulitis of right lower extremity, Wound infection, Sepsis Disposition: OTHER INSTITUTION NOT DEFINED Condition: Serious Referrals: Paramjit Neville DO [STAFF PHYSICIAN] - 1-2 days - Out of Hospital Transfer - Req. Specs Out of Hospital Transfer - Requested Specifics: Other Emergency Center ( Transferred to [facility] [place])
[2017-09-07] MEDS ORDERED: SODIUM CHLORIDE 0.9% 1,000 ML IV SCH (15:30)
[2017-09-07 15:32] LABS: Anisocytosis Marked; HGB 14.8 gm/dL (11.4-16.0); Hypochromasia Moderate; MCH 27.8 pg (25.0-35.0); MCHC 29.8 g/dL (31.0-37.0); Macrocytosis Slight; Mean Platelet Volume 7.8; Microcytosis Slight; Platelet Count 313 k/uL (150-450); RBC 5.33 m/uL (3.80-5.40)
[2017-09-07 15:34] LABS: HCT 49.6 % (34.0-46.0); RDW 25.8 % (11.5-15.5)
[2017-09-07 15:37] LABS: INR 1.2 (<1.2); Partial Thromboplastin Time 30.3 sec (22.0-30.0); Prothrombin Time 11.8 sec (9.0-12.0); WBC 25.4 k/uL (3.8-10.6)
[2017-09-07 15:38] LABS: ALT 21 U/L (9-52); AST 26 U/L (14-36); Albumin 3.7 g/dL (3.5-5.0); Alkaline Phosphatase 95 U/L (38-126); Anion Gap 11 mmol/L; Blood Urea Nitrogen 18 mg/dL (7-17); Carbon Dioxide 26 mmol/L (22-30); Chloride 101 mmol/L (98-107); Glucose 210 mg/dL (74-99); Potassium 4.5 mmol/L (3.5-5.1); Sodium 138 mmol/L (137-145); Total Bilirubin 0.4 mg/dL (0.2-1.3); Total Protein 7.1 g/dL (6.3-8.2)
[2017-09-07 15:46] LABS: Eosinophils # (M) 0.25 k/uL (0-0.7); Lymphocytes # (M) 3.56 k/uL (1.0-4.8); Monocytes # (M) 1.52 k/uL (0-1.0); Neutrophils # (M) 20.07 k/uL (1.3-7.7); Neutrophils % (M) 79 %; Nucleated Red Blood Cells 0 /100 WBC (0-0); Polychromasia Present; Total Cells Counted 100
[2017-09-07 16:13] LABS: Appearance,Urine Cloudy (Clear); Bacteria,Urine Rare /hpf; Bilirubin,Urine Negative (Negative); Blood,Urine Negative (Negative); Budding Yeast,Urine Few /hpf; Color,Urine Light Yellow; Glucose,Urine (UA) 1+ (Negative); Ketones,Urine Negative (Negative); Leukocyte Esterase,Urine Large (Negative); Mucus,Urine Rare /hpf; Nitrite,Urine Negative (Negative); Protein,Urine Negative (Negative); RBC,Urine 1 /hpf (0-5); Specific Gravity,Urine 1.011 (1.001-1.035); Squamous Epithelial Cell,Urine 2 /hpf (0-4); Urobilinogen,Urine <2.0 mg/dL (<2.0); WBC,Urine 101 /hpf (0-5)
--- NOTE | 2017-09-07 16:15 | XR ---
EXAMINATION TYPE: XR chest 1V portable DATE OF EXAM: 09/07/2017 COMPARISON: 08/03/2017 HISTORY: Tachycardia and fever TECHNIQUE: Single frontal view of the chest is obtained. FINDINGS: Left lung base is partially obscured by rotation and copious overlying soft tissues. There is no focal air space opacity, pleural effusion, or pneumothorax seen. The cardiac silhouette size is within normal limits. There is a dextroscoliotic curvature of the thoracic spine identified with d egenerative changes of the thoracic spine, glenohumeral joints and acromio clavicular joint. The oss eous structures are intact. Surgical clips are noted within the left upper quadrant. IMPRESSION: No acute cardiopulmonary process.
--- NOTE | 2017-09-07 16:39 | CT ---
EXAMINATION TYPE: CT lower leg RT wo con DATE OF EXAM: 09/07/2017 COMPARISON: NONE HISTORY: Right lower leg swelling and redness CT DLP: 921.9 mGycm Automated exposure control for dose reduction was used. FINDINGS: There is a right total knee arthroplasty and surgical fixation of the distal fibula with a lateral fi xation plate and multiple transcortical screws. Surgical fixation of the distal tibia is also seen of the medial malleolus from prior fracture. Alignment is maintained of the knee joint and ankle joint. There is diffuse subcutaneous emphysema of the entirety of the right lower extremity most pronounced distally with a deepening gradient. Evaluation of tendons and ligaments is limited on CT. No subcuta neous emphysema is seen throughout the extremity. No evidence of acute fracture or dislocation of the right lower extremity. Ankle mortise is slightly suboptimal due to spray artifact from the adjacent surgical hardware. There is slight atrophy there is generalized of the musculature of the lower extre mity. IMPRESSION: 1. NO EVIDENCE OF ACUTE FRACTURE OR DISLOCATION OF THE RIGHT LOWER EXTREMITY. 2. DIFFUSE RIGHT LOWER EXTREMITY SUBCUTANEOUS EDEMA WITH A DEPENDENT GRADIENT. NO FOCAL FLUID COLLECT ION. 3. NO EVIDENCE OF SUBCUTANEOUS EMPHYSEMA. 4. POSTOPERATIVE CHANGES OF THE KNEE, DISTAL FIBULA, POSTERIOR MALLEOLUS AND MEDIAL MALLEOLUS.
--- NOTE | 2017-09-07 16:57 | US ---
EXAMINATION TYPE: US venous doppler duplex LE RT DATE OF EXAM: 09/07/2017 3:17 PM COMPARISON: US 03/07/2017 CLINICAL HISTORY: Pain. Right swollen foot. Difficult exam due to patient's body habitus SIDE PERFORMED: Right TECHNIQUE: The lower extremity deep venous system is examined utilizing real time linear array sonog nghia with graded compression, doppler sonography and color-flow sonography. VESSELS IMAGED: External Iliac Vein (EIV) Common Femoral Vein Deep Femoral Vein Greater Saphenous Vein * Femoral Vein Popliteal Vein Small Saphenous Vein * Proximal Calf Veins (* superficial vessels) Grayscale, color doppler, spectral doppler imaging performed of the deep veins of the right lower ext remity. There is normal flow, compressibility, vascular waveforms. Right Leg: Negative for DVT IMPRESSION: No sonographic evidence of deep venous thrombosis within the right lower extremity.
[2017-09-07] MEDS ORDERED: KETOROLAC 30 MG/ML 1 ML VIAL IVP STA (17:07)
[2017-09-07 19:10] VITALS: BP 110/60; PULSE 120; RESP 20; TEMP 102
[2017-09-08] MEDS ORDERED: VANCOMYCIN 1,750 MG in SODIUM CHLORIDE 0.9% 250 ML IVPB SCH (08:00)
== END 2017-09-07 19:08 | disposition other institution (70) ==
LOC: EC 14:59
DX: A41.9 Sepsis, unspecified organism (principal); L03.115 Cellulitis of right lower limb; D72.829 Elevated white blood cell count, unspecified; E11.9 Type 2 diabetes mellitus without complications; J44.9 Chronic obstructive pulmonary disease, unspecified; E78.5 Hyperlipidemia, unspecified; I10 Essential (primary) hypertension; E07.9 Disorder of thyroid, unspecified; F32.9 Major depressive disorder, single episode, unspecified; Z87.891 Personal history of nicotine dependence; Z86.711 Personal history of pulmonary embolism; Z86.718 Personal history of other venous thrombosis and embolism; Z85.72 Personal history of non-Hodgkin lymphomas; Z79.01 Long term (current) use of anticoagulants; Z79.4 Long term (current) use of insulin; Z79.899 Other long term (current) drug therapy; Z88.8 Allergy status to other drugs, medicaments and biological substances; Z53.8 Procedure and treatment not carried out for other reasons
CPT/HCPCS: 96375 ×4; 96361 ×4; 96360 ×2; 96365 ×2; 96366 ×2; 99291 ×2; 36415; 93005; 80053; 83605; 85025; 85610; 85730; 81001; 87040; 87070; 87086; 87205; 87502; 71045; 93971; 73700; J3370; J0696; J1885; J2270; 87077; 87186

== ENCOUNTER → 2017-09-07 | Outpatient (CLI) | payer MEDICARE ==
[2017-09-07 11:09] VITALS: BP 174/81; PULSE 113; RESP 20; TEMP 97.7
== END | disposition home or self-care (01) ==
LOC: PROCWHC3 10:36
PROVIDERS: ATTEND Family Medicine
DX: M81.0 Age-related osteoporosis without current pathological fracture (principal)
CPT/HCPCS: 96372; J0897

== ENCOUNTER 2017-09-13 18:17 | Inpatient (IN) | payer MEDICARE ==
[2017-09-13] MEDS ORDERED: IPRATROPIUM-ALBUTEROL 3 ML NEB INHALATION STA (18:23)
[2017-09-13 18:56] LABS: ALT 21 U/L (9-52); AST 29 U/L (14-36); Albumin 3.4 g/dL (3.5-5.0); Alkaline Phosphatase 83 U/L (38-126); Anion Gap 11 mmol/L; Blood Urea Nitrogen 14 mg/dL (7-17); Calcium 10.7 mg/dL (8.4-10.2); Carbon Dioxide 25 mmol/L (22-30); Chloride 100 mmol/L (98-107); Glucose 152 mg/dL (74-99); Magnesium 1.7 mg/dL (1.6-2.3); Sodium 136 mmol/L (137-145); Total Bilirubin 0.5 mg/dL (0.2-1.3); Total Protein 6.9 g/dL (6.3-8.2)
[2017-09-13 19:07] LABS: Anisocytosis Marked; HCT 46.1 % (34.0-46.0); HGB 13.8 gm/dL (11.4-16.0); Hypochromasia Marked; MCH 27.5 pg (25.0-35.0); MCV 91.9 fL (80.0-100.0); Macrocytosis Slight; Microcytosis Slight; Platelet Count 313 k/uL (150-450); RBC 5.02 m/uL (3.80-5.40); WBC 11.7 k/uL (3.8-10.6)
[2017-09-13 19:09] LABS: RDW 25.2 % (11.5-15.5)
[2017-09-13 19:21] LABS: Creatine Kinase 89 U/L (30-135)
[2017-09-13 19:28] LABS: Eosinophils # (M) 0.47 k/uL (0-0.7); Lymphocytes # (M) 3.86 k/uL (1.0-4.8); Neutrophils # (M) 6.67 k/uL (1.3-7.7); Neutrophils % (M) 57 %; Nucleated Red Blood Cells 0 /100 WBC (0-0); Polychromasia Present; Total Cells Counted 100
[2017-09-13 19:29] LABS: INR 1.3 (<1.2); Partial Thromboplastin Time 29.7 sec (22.0-30.0); Prothrombin Time 12.2 sec (9.0-12.0)
[2017-09-13 19:34] LABS: Creatine Kinase MB 1.2 ng/mL (0.0-2.4); Troponin I <0.012 ng/mL (0.000-0.034)
--- NOTE | 2017-09-13 19:42 | XR ---
EXAMINATION TYPE: XR chest 2V DATE OF EXAM: 09/13/2017 COMPARISON: 09/07/2017 HISTORY: Sepsis. Leg infection. Difficulty breathing. TECHNIQUE: Frontal and lateral views of the chest are obtained. FINDINGS: Exam is limited by patient size. I see no heart failure nor confluent pneumonic infiltrate . Costophrenic angles are clear. Heart is probably enlarged. IMPRESSION: . No heart failure or pulmonary consolidation. Cardiac silhouette however is increased compared to recent exam. This raises the possibility of peric ardial effusion.
--- NOTE | 2017-09-13 19:49 | ED ---
General Adult HPI - General Chief complaint: Shortness of Breath Stated complaint: KOREY Time Seen by Provider: 09/13/17 18:23 Source: patient, EMS Mode of arrival: EMS Limitations: no limitations - History of Present Illness Initial comments: This is a 72-year-old female sent ER for evaluation regarding possible infection , cellulitis, fever. Low pulse ox. Patient's pulse ox desaturations down in the 80s. Patient coming to ER for continued shortness of breath and will she feels better and improved now on oxygen. No chest pain, she does have leg pain although she states that is improved from prior - Related Data Home Medications Medication Instructions Recorded Confirmed clonazePAM [KlonoPIN] 0.5 mg PO Q12H PRN 10/09/13 09/13/17 sitaGLIPtin [Januvia] 100 mg PO DAILY@0800 10/09/13 09/13/17 DULoxetine HCL [Cymbalta] 30 mg PO BID@0800,1700 11/27/15 09/13/17 rOPINIRole HCL [Requip] 3 mg PO HS@2100 11/27/15 09/13/17 Rivaroxaban [Xarelto] 20 mg PO DAILY@1700 05/12/16 09/13/17 Allopurinol [Zyloprim] 100 mg PO DAILY@0800 09/20/16 09/13/17 Levothyroxine Sodium [Synthroid] 100 mcg PO DAILY 09/20/16 09/13/17 Omeprazole [PriLOSEC] 20 mg PO DAILY@0700 09/20/16 09/13/17 Atorvastatin [Lipitor] 40 mg PO DAILY@1700 05/02/17 09/13/17 Insulin Lispro [humaLOG Kwikpen] See Protocol SQ ACHS 05/02/17 09/13/17 Acetaminophen Tab [Tylenol] 650 mg PO Q6H PRN 08/03/17 09/13/17 Amino Acids/Protein Hydrolys 30 ml PO DAILY@1700 08/03/17 09/13/17 [Pro-Stat Supplement] Bisacodyl [Dulcolax] 10 mg RECTAL DAILY PRN 08/03/17 09/13/17 Budesonide/Formoterol Fumarate 2 puff INHALATION RT-DAILY PRN 08/03/17 09/13/17 [Symbicort 80-4.5 Mcg Inhaler] Cholecalciferol (Vitamin D3) 2,000 unit PO DAILY@1700 08/03/17 09/13/17 [Vitamin D3] Cyclobenzaprine [Flexeril] 5 mg PO TID PRN 08/03/17 09/13/17 Docusate Sodium [Dok] 200 mg PO BID@0800,1700 08/03/17 09/13/17 Ferrous Sulfate [Feosol] 325 mg PO DAILY@17008/03/17 09/13/17 Furosemide [Lasix] 20 mg PO BID@0800,1700 08/03/17 09/13/17 Glucerna Shake 1 can PO HS 08/03/17 09/13/17 HYDROcodone/APAP 10-325MG [[place] 1 tab PO Q4HR PRN 08/03/17 09/13/17 10-325] L.acidoph,Paracasei, B.lactis 1 cap PO DAILY 08/03/17 09/13/17 [Probiotic] Magnesium Hydroxide [Milk of 2,400 mg PO DAILY PRN 08/03/17 09/13/17 Magnesia] Metoprolol Tartrate [Lopressor] 12.5 mg PO BID@0800,1700 08/03/17 09/13/17 Na Phos,M-B/Na Phos,Di-Ba [Fleet 133 ml RECTAL ONCE PRN 08/03/17 09/13/17 Adult] Polyethylene Glycol 3350 [Miralax] 17 gm PO DAILY PRN 08/03/17 09/13/17 Potassium Chloride ER [K-Dur 20] 20 meq PO DAILY@17008/03/17 09/13/17 Pregabalin [Lyrica] 200 mg PO BID@0800,2100 08/03/17 09/13/17 Albuterol Inhaler [Ventolin Hfa 2 puff INHALATION RT-Q4H PRN 09/07/17 09/13/17 Inhaler] Insulin Lispro [humaLOG Kwikpen] 6 unit SQ TID@0700,1100,1730 09/07/17 09/13/17 Mirabegron [Myrbetriq] 50 mg PO DAILY 09/07/17 09/13/17 Ondansetron [Zofran] 4 mg PO Q8HR PRN 09/07/17 09/13/17 Sennosides/Docusate Sodium [Shayy 2 tab PO DAILY 09/07/17 09/13/17 Colace] Aspirin EC [Ecotrin Low Dose] 81 mg PO DAILY@1700 09/13/17 09/13/17 Cephalexin [Keflex] 500 mg PO TID@08,14,20 09/13/17 09/13/17 Collagenase [Santyl] 1 applic TOPICAL DAILY 09/13/17 09/13/17 Insulin Detemir [Levemir] 20 unit SQ HS 09/13/17 09/13/17 Miconazole Nitrate [Lotrimin AF 1 applic TOPICAL BID 09/13/17 09/13/17 Powder] Sulfamethox-Tmp 800-160Mg [Bactrim 1 tab PO BID@0800,2100 09/13/17 09/13/17 DS 800-160 mg] Allergies Allergy/AdvReac Type Severity Reaction Status Date / Time Iodinated Contrast- Oral and Allergy Unknown Verified 09/13/17 19:02 IV Dye iodine Allergy Unknown Verified 09/07/17 15:32 Review of Systems ROS Statement: Those systems with pertinent positive or pertinent negative responses have been documented in the HPI. ROS Other: All systems not noted in ROS Statement are negative. Past Medical History Past Medical History: Cancer, COPD, Diabetes Mellitus, Deep Vein Thrombosis (DVT ), Hyperlipidemia, Hypertension, Pneumonia, Pulmonary Embolus (PE), Rheumatoid Arthritis (RA), Skin Disorder, Thyroid Disorder Additional Past Medical History / Comment(s): stated "was to have total left knee surgery and and something is wrong with the blood work and now needing to have EGD & colonoscopy".mult ulcers to stomach,chest and breast-unk cause has had for over a yr-seen at [facility],"[id number] with spleenectomy and radiation,DVTs & PE yrs ago.Uses walker and w/c. History of Any Multi-Drug Resistant Organisms: None Reported Past Surgical History: Appendectomy, Section, Cholecystectomy, Orthopedic Surgery Additional Past Surgical History / Comment(s): total rt knee Jan 2017, Splenectomy, Carpal tunnel release, rotator cuff Past Anesthesia/Blood Transfusion Reactions: No Reported Reaction Past Psychological History: Depression Smoking Status: Former smoker Past Alcohol Use History: None Reported Past Drug Use History: None Reported - Past Family History Son(s) Family Medical History: No Reported History Additional Family Medical History / Comment(s): She relates that her parents of old age her mother was about 90 father was 88, without sniffing and medical troubles. She does relate that her son committed suicide but her daughter is quite healthy. General Exam Limitations: no limitations General appearance: alert, in no apparent distress Head exam: Present: atraumatic, normocephalic, normal inspection Eye exam: Present: normal appearance, PERRL, EOMI. Absent: scleral icterus, conjunctival injection, periorbital swelling ENT exam: Present: normal exam, mucous membranes moist Neck exam: Present: normal inspection. Absent: tenderness, meningismus, lymphadenopathy Respiratory exam: Present: respiratory distress, wheezes, accessory muscle use, decreased breath sounds, prolonged expiratory. Absent: rales, rhonchi, stridor Cardiovascular Exam: Present: normal rhythm, tachycardia, normal heart sounds. Absent: systolic murmur, diastolic murmur, rubs, gallop, clicks GI/Abdominal exam: Present: soft, normal bowel sounds. Absent: distended, tenderness, guarding, rebound, rigid Extremities exam: Present: normal inspection, full ROM, normal capillary refill. Absent: tenderness, pedal edema, joint swelling, calf tenderness Back exam: Present: normal inspection Neurological exam: Present: alert, oriented X3, CN II-XII intact Psychiatric exam: Present: normal affect, normal mood Skin exam: Present: warm, dry, intact, normal color. Absent: rash Course Vital Signs 09/13/17 09/13/17 09/13/17 18:25 18:27 18:34 Temperature 98.2 F 98.2 F Pulse Rate 100 100 Respiratory 16 16 16 Rate Blood Pressure 159/72 129/64 O2 Sat by Pulse 95 95 Oximetry 09/13/17 09/13/17 09/13/17 18:54 19:07 20:14 Temperature Pulse Rate 84 88 108 H Respiratory 16 Rate Blood Pressure 131/62 O2 Sat by Pulse 93 L Oximetry - Reevaluation(s) Reevaluation #1: 09/13/17 20:20 Patient had low pulse ox per transferring facility. Patient does have underlying COPD CHF and history of PE EKG Findings - EKG Comments: EKG Findings:: EKG shows normal sinus rhythm rate 90, W[place] 150, QRS 100, QTc 469 Medical Decision Making - Medical Decision Making 72 female the ER for evaluation of shortness of breath, history of CHF COPD. Patient is hypoxic improving with oxygen and breathing treatments. Patient will be placed on mild diaphoresis. - Lab Data Result diagrams: 09/13/17 18:30 09/13/17 18:30 Lab Results 09/13/17 09/13/17 09/13/17 Range/Units 18:30 18:30 18:30 WBC 11.7 H (3.8-10.6) k/uL RBC 5.02 (3.80-5.40) m/uL Hgb 13.8 (11.4-16.0) gm/dL Hct 46.1 H (34.0-46.0) % MCV 91.9 (80.0-100.0) fL MCH 27.5 (25.0-35.0) pg MCHC 30.0 L (31.0-37.0) g/dL RDW 25.2 H (11.5-15.5) % Plt Count 313 (150-450) k/uL Neutrophils % (Manual) 57 % Lymphocytes % (Manual) 33 % Monocytes % (Manual) 6 % Eosinophils % (Manual) 4 % Neutrophils # (Manual) 6.67 (1.3-7.7) k/uL Lymphocytes # (Manual) 3.86 (1.0-4.8) k/uL Monocytes # (Manual) 0.70 (0-1.0) k/uL Eosinophils # (Manual) 0.47 (0-0.7) k/uL Nucleated RBCs 0 (0-0) /100 WBC Polychromasia Present Hypochromasia Marked Anisocytosis Marked Microcytosis Slight Macrocytosis Slight PT (9.0-12.0) sec INR (<1.2) APTT (22.0-30.0) sec Sodium 136 L (137-145) mmol/L Potassium 5.0 (3.5-5.1) mmol/L Chloride 100 (98-107) mmol/L Carbon Dioxide 25 (22-30) mmol/L Anion Gap 11 mmol/L BUN 14 (7-17) mg/dL Creatinine 0.69 (0.52-1.04) mg/dL Est GFR (CKD-EPI)AfAm >90 (>60 ml/min/1.73 sqM) Est GFR (CKD-EPI)NonAf 87 (>60 ml/min/1.73 sqM) Glucose 152 H (74-99) mg/dL Calcium 10.7 H (8.4-10.2) mg/dL Magnesium 1.7 (1.6-2.3) mg/dL Total Bilirubin 0.5 (0.2-1.3) mg/dL AST 29 (14-36) U/L ALT 21 (9-52) U/L Alkaline Phosphatase 83 (38-126) U/L Total Creatine Kinase 89 (30-135) U/L CK-MB (CK-2) 1.2 (0.0-2.4) ng/mL CK-MB (CK-2) Rel Index 1.3 Troponin I <0.012 (0.000-0.034) ng/mL NT-Pro-B Natriuret Pep pg/mL Total Protein 6.9 (6.3-8.2) g/dL Albumin 3.4 L (3.5-5.0) g/dL 09/13/17 09/13/17 Range/Units 18:30 18:30 WBC (3.8-10.6) k/uL RBC (3.80-5.40) m/uL Hgb (11.4-16.0) gm/dL Hct (34.0-46.0) % MCV (80.0-100.0) fL MCH (25.0-35.0) pg MCHC (31.0-37.0) g/dL RDW (11.5-15.5) % Plt Count (150-450) k/uL Neutrophils % (Manual) % Lymphocytes % (Manual) % Monocytes % (Manual) % Eosinophils % (Manual) % Neutrophils # (Manual) (1.3-7.7) k/uL Lymphocytes # (Manual) (1.0-4.8) k/uL Monocytes # (Manual) (0-1.0) k/uL Eosinophils # (Manual) (0-0.7) k/uL Nucleated RBCs (0-0) /100 WBC Polychromasia Hypochromasia Anisocytosis Microcytosis Macrocytosis PT 12.2 H (9.0-12.0) sec INR 1.3 H (<1.2) APTT 29.7 (22.0-30.0) sec Sodium (137-145) mmol/L Potassium (3.5-5.1) mmol/L Chloride (98-107) mmol/L Carbon Dioxide (22-30) mmol/L Anion Gap mmol/L BUN (7-17) mg/dL Creatinine (0.52-1.04) mg/dL Est GFR (CKD-EPI)AfAm (>60 ml/min/1.73 sqM) Est GFR (CKD-EPI)NonAf (>60 ml/min/1.73 sqM) Glucose (74-99) mg/dL Calcium (8.4-10.2) mg/dL Magnesium (1.6-2.3) mg/dL Total Bilirubin (0.2-1.3) mg/dL AST (14-36) U/L ALT (9-52) U/L Alkaline Phosphatase (38-126) U/L Total Creatine Kinase (30-135) U/L CK-MB (CK-2) (0.0-2.4) ng/mL CK-MB (CK-2) Rel Index Troponin I (0.000-0.034) ng/mL NT-Pro-B Natriuret Pep 532 pg/mL Total Protein (6.3-8.2) g/dL Albumin (3.5-5.0) g/dL - Radiology Data Radiology results: report reviewed (Chest x-rays negative for acute disease), image reviewed Disposition Clinical Impression: Chronic back pain, Tachycardia, Cellulitis of right lower extremity, Fever, Acute exacerbation of chronic obstructive airways disease, Congestive heart failure Disposition: ADMITTED IP TO THIS HOSP Condition: Fair Referrals: Patric Richard MD [Primary Care Provider] - 1-2 days
[2017-09-13] MEDS ORDERED: methylPREDNISolone SOD SUCCI 125 MG/2 ML VIAL IV STA (20:16)
[2017-09-13] MEDS ORDERED: cefTRIAXone IN SWFI 1,000 MG/10 ML SYRINGE IVP STA (20:21)
[2017-09-13] MEDS: FUROSEMIDE 10 MG/ML 4 ML VIAL IV SCH (20:58)
[2017-09-13] MEDS ORDERED: HYDROcodone/APAP 10-325MG 1 EACH TAB PO PRN (21:08)
[2017-09-13 22:22] LABS: Glucose,Whole Blood 159 mg/dL (75-99)
[2017-09-13] MEDS ORDERED: CYCLOBENZAPRINE 5 MG TAB PO PRN (23:39)
[2017-09-13] MEDS ORDERED: ACETAMINOPHEN TAB 325 MG TAB PO PRN (23:39)
[2017-09-14] MEDS: DULoxetine HCL 30 MG CAPSULE.DR PO SCH ×3 (00:32→17:07)
[2017-09-14] MEDS: ATORVASTATIN 40 MG TAB PO SCH ×2 (00:32→17:06)
[2017-09-14] MEDS: RIVAROXABAN 20 MG TAB PO SCH ×2 (00:32→17:08)
[2017-09-14] MEDS: METOPROLOL TARTRATE 12.5 MG TAB PO SCH ×3 (00:32→17:07)
[2017-09-14] MEDS: PREGABALIN 100 MG CAP PO SCH ×3 (00:34→20:32)
[2017-09-14] MEDS: methylPREDNISolone SOD SUCCI 125 MG/2 ML VIAL IV SCH ×2 (00:34→05:32)
[2017-09-14 01:08] LABS: Creatine Kinase MB 1.3 ng/mL (0.0-2.4); Troponin I <0.012 ng/mL (0.000-0.034)
[2017-09-14] MEDS: FUROSEMIDE 10 MG/ML 4 ML VIAL IV SCH (05:32)
[2017-09-14] MEDS: LEVOTHYROXINE 100 MCG TAB PO SCH (05:32)
[2017-09-14 06:13] LABS: Glucose,Whole Blood 294 mg/dL (75-99)
[2017-09-14 06:14] LABS: Anisocytosis Marked; Basophils % (A) 0 %; Eosinophils % (A) 0 %; HCT 46.4 % (34.0-46.0); HGB 14.7 gm/dL (11.4-16.0); Hypochromasia Slight; Lymphocytes # (A) 1.4 k/uL (1.0-4.8); Lymphocytes % (A) 21 %; MCH 28.7 pg (25.0-35.0); MCHC 31.8 g/dL (31.0-37.0); MCV 90.3 fL (80.0-100.0); Mean Platelet Volume 8.3; Microcytosis Slight; Monocytes # (A) 0.1 k/uL (0-1.0); Monocytes % (A) 2 %; Neutrophils % (A) 76 %; Platelet Count 315 k/uL (150-450); RBC 5.14 m/uL (3.80-5.40); RDW 24.2 % (11.5-15.5); WBC 6.6 k/uL (3.8-10.6)
[2017-09-14 06:33] LABS: Anion Gap 14 mmol/L; Blood Urea Nitrogen 13 mg/dL (7-17); Calcium 10.6 mg/dL (8.4-10.2); Carbon Dioxide 27 mmol/L (22-30); Chloride 98 mmol/L (98-107); Glucose 318 mg/dL (74-99); Potassium 4.2 mmol/L (3.5-5.1); Sodium 139 mmol/L (137-145)
[2017-09-14] MEDS: INSULIN ASPART 100 UNIT/ML 1 ML 10 ML VIAL SQ SCH ×7 (06:37→20:56)
[2017-09-14 06:47] LABS: Creatine Kinase MB 1.1 ng/mL (0.0-2.4); Troponin I <0.012 ng/mL (0.000-0.034)
[2017-09-14] MEDS: IPRATROPIUM-ALBUTEROL 3 ML NEB INHALATION SCH ×4 (08:02→20:08)
--- NOTE | 2017-09-14 08:32 | P.CNOR ---
History of Present Illness - [facility] Consult date: 09/14/17 History of present illness: This is a 72-year-old female admitted with cellulitis and fever. She has history of open reduction internal fixation of the right ankle back in June at [facility]. The patient has been residing in rehab. She developed a sore about her ankle about a month ago. The area has continued to be red and swollen. The patient has extensive medical history including COPD, DVT, PE and diabetes. She is currently on Xarelto. We're consulted for orthopedic evaluation of her right lower extremity. Past Medical History Past Medical History: Cancer, COPD, Diabetes Mellitus, Deep Vein Thrombosis (DVT ), Hyperlipidemia, Hypertension, Pneumonia, Pulmonary Embolus (PE), Rheumatoid Arthritis (RA), Skin Disorder, Thyroid Disorder Additional Past Medical History / Comment(s): stated "was to have total left knee surgery and and something is wrong with the blood work and now needing to have EGD & colonoscopy".mult ulcers to stomach,chest and breast-unk cause has had for over a yr-seen at [facility],"[id number] with spleenectomy and radiation,DVTs & PE yrs ago.Uses walker and w/c. History of Any Multi-Drug Resistant Organisms: None Reported Past Surgical History: Appendectomy, Section, Cholecystectomy, Orthopedic Surgery Additional Past Surgical History / Comment(s): total rt knee Jan 2017, Splenectomy, Carpal tunnel release, rotator cuff, right bimalleolar fracture repair 06/2017 Past Anesthesia/Blood Transfusion Reactions: No Reported Reaction Past Psychological History: Depression Additional Psychological History / Comment(s): The patient is and lives at home with her . She was a tobacco smoker and stopped several years ago. She denies any significant alcohol or recreational drug use. Used to work in. retail sales. She has no experience her extensive travels. No animals in the home.. Smoking Status: Former smoker Past Alcohol Use History: None Reported Additional Past Alcohol Use History / Comment(s): quit smoking 1993,smoked approx 30 yrs,1 ppd. Past Drug Use History: None Reported - Past Family History Son(s) Family Medical History: No Reported History Additional Family Medical History / Comment(s): She relates that her parents of old age her mother was about 90 father was 88, without sniffing and medical troubles. She does relate that her son committed suicide but her daughter is quite healthy. Medications and Allergies Home Medications Medication Instructions Recorded Confirmed Type clonazePAM [KlonoPIN] 0.5 mg PO Q12H PRN 10/09/13 09/13/17 History sitaGLIPtin [Januvia] 100 mg PO DAILY@0800 10/09/13 09/13/17 History DULoxetine HCL [Cymbalta] 30 mg PO BID@0800,1700 11/27/15 09/13/17 History rOPINIRole HCL [Requip] 3 mg PO HS@2100 11/27/15 09/13/17 History Rivaroxaban [Xarelto] 20 mg PO DAILY@1700 05/12/16 09/13/17 History Allopurinol [Zyloprim] 100 mg PO DAILY@0800 09/20/16 09/13/17 History Levothyroxine Sodium [Synthroid] 100 mcg PO DAILY 09/20/16 09/13/17 History Omeprazole [PriLOSEC] 20 mg PO DAILY@0700 09/20/16 09/13/17 History Atorvastatin [Lipitor] 40 mg PO DAILY@1700 05/02/17 09/13/17 History Insulin Lispro [humaLOG Kwikpen] See Protocol SQ ACHS 05/02/17 09/13/17 History Acetaminophen Tab [Tylenol] 650 mg PO Q6H PRN 08/03/17 09/13/17 History Amino Acids/Protein Hydrolys 30 ml PO DAILY@1700 08/03/17 09/13/17 History [Pro-Stat Supplement] Bisacodyl [Dulcolax] 10 mg RECTAL DAILY PRN 08/03/17 09/13/17 History Budesonide/Formoterol Fumarate 2 puff INHALATION RT-DAILY PRN 08/03/17 09/13/17 History [Symbicort 80-4.5 Mcg Inhaler] Cholecalciferol (Vitamin D3) 2,000 unit PO DAILY@1700 08/03/17 09/13/17 History [Vitamin D3] Cyclobenzaprine [Flexeril] 5 mg PO TID PRN 08/03/17 09/13/17 History Docusate Sodium [Dok] 200 mg PO BID@0800,1700 08/03/17 09/13/17 History Ferrous Sulfate [Feosol] 325 mg PO DAILY@1700 08/03/17 09/13/17 History Furosemide [Lasix] 20 mg PO BID@0800,1700 08/03/17 09/13/17 History Glucerna Shake 1 can PO HS 08/03/17 09/13/17 History HYDROcodone/APAP 10-325MG [[place] 1 tab PO Q4HR PRN 08/03/17 09/13/17 History 10-325] L.acidoph,Paracasei, B.lactis 1 cap PO DAILY 08/03/17 09/13/17 History [Probiotic] Magnesium Hydroxide [Milk of 2,400 mg PO DAILY PRN 08/03/17 09/13/17 History Magnesia] Metoprolol Tartrate [Lopressor] 12.5 mg PO BID@0800,1700 08/03/17 09/13/17 History Na Phos,M-B/Na Phos,Di-Ba [Fleet 133 ml RECTAL ONCE PRN 08/03/17 09/13/17 History Adult] Polyethylene Glycol 3350 [Miralax] 17 gm PO DAILY PRN 08/03/17 09/13/17 History Potassium Chloride ER [K-Dur 20] 20 meq PO DAILY@1700 08/03/17 09/13/17 History Pregabalin [Lyrica] 200 mg PO BID@0800,2100 08/03/17 09/13/17 History Albuterol Inhaler [Ventolin Hfa 2 puff INHALATION RT-Q4H PRN 09/07/17 09/13/17 History Inhaler] Insulin Lispro [humaLOG Kwikpen] 6 unit SQ TID@0700,1100,1730 09/07/17 09/13/17 History Mirabegron [Myrbetriq] 50 mg PO DAILY 09/07/17 09/13/17 History Ondansetron [Zofran] 4 mg PO Q8HR PRN 09/07/17 09/13/17 History Sennosides/Docusate Sodium [Shayy 2 tab PO DAILY 09/07/17 09/13/17 History Colace] Aspirin EC [Ecotrin Low Dose] 81 mg PO DAILY@1700 09/13/17 09/13/17 History Cephalexin [Keflex] 500 mg PO TID@08,14,20 09/13/17 09/13/17 History Collagenase [Santyl] 1 applic TOPICAL DAILY 09/13/17 09/13/17 History Insulin Detemir [Levemir] 20 unit SQ HS 09/13/17 09/13/17 History Miconazole Nitrate [Lotrimin AF 1 applic TOPICAL BID 09/13/17 09/13/17 History Powder] Sulfamethox-Tmp 800-160Mg [Bactrim 1 tab PO BID@0800,2100 09/13/17 09/13/17 History DS 800-160 mg] Allergies Allergy/AdvReac Type Severity Reaction Status Date / Time Iodinated Contrast- Oral and Allergy Unknown Verified 09/13/17 19:02 IV Dye iodine Allergy Unknown Verified 09/07/17 15:32 Physical Examination This is a 72-year-old female in no acute distress. She is alert and oriented at this time. Exam of the lower extremities reveals a nickel-sized wound about the anterolateral aspect of the ankle just anterior to the fibular incision. The incision itself is well-healed. There is some redness around the wound. The medial aspect of the ankle shows a well-healed incision with no skin breakdown her wounds. She has full foot and ankle motion without difficulty or pain. Pedal pulse is diminished but equal to the left foot. Results No x-rays of the ankle have been obtained. - Labs Labs: Abnormal Lab Results - Last 24 Hours (Table) 09/13/17 09/13/17 09/13/17 Range/Units 18:30 18:30 18:30 WBC 11.7 H (3.8-10.6) k/uL Hct 46.1 H (34.0-46.0) % MCHC 30.0 L (31.0-37.0) g/dL RDW 25.2 H (11.5-15.5) % PT 12.2 H (9.0-12.0) sec INR 1.3 H (<1.2) Sodium 136 L (137-145) mmol/L Glucose 152 H (74-99) mg/dL POC Glucose (mg/dL) (75-99) mg/dL Calcium 10.7 H (8.4-10.2) mg/dL Albumin 3.4 L (3.5-5.0) g/dL 09/13/17 09/14/17 09/14/17 Range/Units 22:20 05:48 05:48 WBC (3.8-10.6) k/uL Hct 46.4 H (34.0-46.0) % MCHC (31.0-37.0) g/dL RDW 24.2 H (11.5-15.5) % PT (9.0-12.0) sec INR (<1.2) Sodium (137-145) mmol/L Glucose 318 H (74-99) mg/dL POC Glucose (mg/dL) 159 H (75-99) mg/dL Calcium 10.6 H (8.4-10.2) mg/dL Albumin (3.5-5.0) g/dL 09/14/17 Range/Units 06:12 WBC (3.8-10.6) k/uL Hct (34.0-46.0) % MCHC (31.0-37.0) g/dL RDW (11.5-15.5) % PT (9.0-12.0) sec INR (<1.2) Sodium (137-145) mmol/L Glucose (74-99) mg/dL POC Glucose (mg/dL) 294 H (75-99) mg/dL Calcium (8.4-10.2) mg/dL Albumin (3.5-5.0) g/dL H & H 09/13/17 09/14/17 Range/Units 18:30 05:48 Hgb 13.8 14.7 (11.4-16.0) gm/dL Hct 46.1 H 46.4 H (34.0-46.0) % Coagulation 09/13/17 Range/Units 18:30 INR 1.3 H (<1.2) Result Diagrams: 09/14/17 05:48 09/14/17 05:48 Assessment and Plan (1) Wound of right ankle Current Visit: Yes Status: Acute Code(s): S91.001A - UNSPECIFIED OPEN WOUND , RIGHT ANKLE, INITIAL ENCOUNTER SNOMED Code(s): 225908015 (2) Cellulitis of right lower extremity Current Visit: Yes Status: Acute Code(s): L03.115 - CELLULITIS OF RIGHT LOWER LIMB SNOMED Code(s): 120708805 (3) Fever Current Visit: Yes Status: Acute Code(s): R50.9 - FEVER, UNSPECIFIED SNOMED Code(s): 767907519 (4) Status post ORIF of fracture of ankle Current Visit: Yes Status: Acute Code(s): Z96.7 - PRESENCE OF OTHER BONE AND TENDON IMPLANTS; Z87.81 - PERSONAL HISTORY OF (HEALED) TRAUMATIC FRACTURE SNOMED Code(s): 201025571 Plan: The clinical findings of been discussed with the patient. I have reviewed the case with Dr. Church who is requesting that vascular surgery evaluate the patient due to her history of diabetes and peripheral vascular disease. We will defer wound care to vascular surgery and infectious disease. It is recommended that once she is released from the hospital she is to follow-up with her orthopedic surgeon at [facility].
[2017-09-14] MEDS ORDERED: cefTRIAXone 1,000 MG in SODIUM CHLORIDE 0.9% 100 ML IVPB SCH (09:00)
[2017-09-14] MEDS ORDERED: cefTRIAXone IN SWFI 1,000 MG/10 ML SYRINGE IVP SCH (09:00)
--- NOTE | 2017-09-14 09:43 | XR ---
EXAMINATION TYPE: XR ankle complete RT DATE OF EXAM: 09/14/2017 COMPARISON: NONE HISTORY: Status post ORIF FINDINGS: Three views of the ankle demonstrate the ankle mortise to be intact and symmetric. Diffuse osteopenia noted. There is diffuse soft tissue edema. One of the fixation screws adjacent to the fibula fixatio n plate appears to be outside of the plate. No destructive changes seen. Plantar calcaneal spur noted . IMPRESSION: 1. Diffuse soft tissue edema. See above.
--- NOTE | 2017-09-14 10:36 | CONS ---
CONSULTATION This is a 72-year-old pleasant female. I was consulted for chronic wound left ankle. This patient had an open reduction of the left ankle done by Dr. Jarrett at [facility]. The patient has redness and open wound at the left ankle. Measurement is 1 x 1 cm with some fibrinous material present at the base of the wound with slight redness of the skin. The patient has been seen by orthopedic surgeon, Luiza and she was supposed to see him on Monday in his office and he is familiar with this open wound. MEDICAL HISTORY: History of diabetes mellitus, history of hyperlipidemia, hypertension, history of PE, rheumatoid arthritis, skin disorder, thyroid disorder. PHYSICAL EXAMINATION: On examination, patient was seen in her room. Neck is supple. Chest is clear. Femorals are 1+. Posterior tibial, dorsalis pedis by the Doppler. The patient has open wound on left ankle with some slight redness and fibrinous material present at the base of the wound. PLAN: We took the deep culture. We will use Santyl cream for the wound and advised to continue with Santyl cream. The patient has appointment with her orthopedic surgeon on Monday. MMODL / LINN: [id number] /
[2017-09-14] MEDS ORDERED: RX INFO: IV CONTRAST WAS GIVEN 1 EACH MISC MISCELLANE PRN (11:15)
[2017-09-14] MEDS ORDERED: clonazePAM 0.5 MG TAB PO PRN (11:18)
[2017-09-14] MEDS ORDERED: ONDANSETRON 4 MG TAB PO PRN (11:18)
[2017-09-14] MEDS ORDERED: BISACODYL 10 MG SUPP RECTAL PRN (11:18)
[2017-09-14] MEDS ORDERED: ALBUTEROL NEBULIZED 2.5 MG/3 ML INHALATION PRN (11:18)
[2017-09-14] MEDS ORDERED: POLYETHYLENE GLYCOL 3350 17 GM POWD.PACK PO PRN (11:18)
[2017-09-14] MEDS ORDERED: diphenhydrAMINE 50 MG/ML 1 ML VIAL IVP STA (11:21)
[2017-09-14 11:26] LABS: Glucose,Whole Blood 319 mg/dL (75-99)
[2017-09-14] MEDS ORDERED: methylPREDNISolone SOD SUCCI 125 MG/2 ML VIAL IV STA (11:51)
[2017-09-14] MEDS ORDERED: FAMOTIDINE 20 MG/2 ML VIAL IV STA (11:51)
[2017-09-14] MEDS: COLLAGENASE 250 UNIT/GM OINTMENT 30 GM TUBE TOPICAL SCH (12:22)
--- NOTE | 2017-09-14 13:12 | P.HPIM ---
History of Present Illness 72-year-old pleasant female was sent in from skilled nursing because of the low pulse ox saturations going down to 80s patient denied any significant shortness of breath cough runny nose. Patient chest x-ray did not show pneumonia can start failure patient's BNP is only 500 patient doesn't have any wheeze on exam patient doesn't wear eons and but is on 5 L of oxygen patient does have history of DVTs in the past is already on Xarelto. Patient denied any fever chills patient any cough runny nose. Patient also has an ulcer in the right leg above the ankle area patient had surgery in that area patient is going for Ankle surgery again. Patient was also complaining of dysuria will obtain a UA patient was started on Rocephin patient was on Keflex and Bactrim as an outpatient she is unsure whether it's for UTI or ankle. Patient the wound cultures in the past showed Morganella morganii and UTIs in showed the same organism but different sensitivities. Infectious disease will be consulted and wound care Dr. Parkinson already saw the patient. Review of Systems REVIEW OF SYSTEMS: CONSTITUTIONAL: No fever, no malaise, no fatigue. HEENT: No recent visual problems or hearing problems. Denied any sore throat. CARDIOVASCULAR: No chest pain, orthopnea, PND, no palpitations, no syncope. PULMONARY: No shortness of breath, no cough, no hemoptysis. GASTROINTESTINAL: No diarrhea, no nausea, no vomiting, no abdominal pain. Normoactive bowel sounds. NEUROLOGICAL: No headaches, no weakness, no numbness. HEMATOLOGICAL: Denies any bleeding or petechiae. GENITOURINARY: Denies any burning micturition, frequency, or urgency. MUSCULOSKELETAL/RHEUMATOLOGICAL: Denies any joint pain, swelling, or any muscle pain. ENDOCRINE: Denies any polyuria or polydipsia. The rest of the 14-point review of systems is negative. Past Medical History Past Medical History: Cancer, COPD, Diabetes Mellitus, Deep Vein Thrombosis (DVT ), Hyperlipidemia, Hypertension, Pneumonia, Pulmonary Embolus (PE), Rheumatoid Arthritis (RA), Skin Disorder, Thyroid Disorder Additional Past Medical History / Comment(s): stated "was to have total left knee surgery and and something is wrong with the blood work and now needing to have EGD & colonoscopy".mult ulcers to stomach,chest and breast-unk cause has had for over a yr-seen at [facility],"[id number] with spleenectomy and radiation,DVTs & PE yrs ago.Uses walker and w/c. History of Any Multi-Drug Resistant Organisms: None Reported Past Surgical History: Appendectomy, Section, Cholecystectomy, Orthopedic Surgery Additional Past Surgical History / Comment(s): total rt knee Jan 2017, Splenectomy, Carpal tunnel release, rotator cuff, right bimalleolar fracture repair 06/2017 Past Anesthesia/Blood Transfusion Reactions: No Reported Reaction Past Psychological History: Depression Additional Psychological History / Comment(s): The patient is and lives at home with her . She was a tobacco smoker and stopped several years ago. She denies any significant alcohol or recreational drug use. Used to work in. retail sales. She has no experience her extensive travels. No animals in the home.. Smoking Status: Former smoker Past Alcohol Use History: None Reported Additional Past Alcohol Use History / Comment(s): quit smoking 1993,smoked approx 30 yrs,1 ppd. Past Drug Use History: None Reported - Past Family History Son(s) Family Medical History: No Reported History Additional Family Medical History / Comment(s): She relates that her parents of old age her mother was about 90 father was 88, without sniffing and medical troubles. She does relate that her son committed suicide but her daughter is quite healthy. Medications and Allergies Home Medications Medication Instructions Recorded Confirmed Type clonazePAM [KlonoPIN] 0.5 mg PO Q12H PRN 10/09/13 09/13/17 History sitaGLIPtin [Januvia] 100 mg PO DAILY@0800 10/09/13 09/13/17 History DULoxetine HCL [Cymbalta] 30 mg PO BID@0800,1700 11/27/15 09/13/17 History rOPINIRole HCL [Requip] 3 mg PO HS@2100 11/27/15 09/13/17 History Rivaroxaban [Xarelto] 20 mg PO DAILY@1700 05/12/16 09/13/17 History Allopurinol [Zyloprim] 100 mg PO DAILY@0800 09/20/16 09/13/17 History Levothyroxine Sodium [Synthroid] 100 mcg PO DAILY 09/20/16 09/13/17 History Omeprazole [PriLOSEC] 20 mg PO DAILY@0700 04/18/17 04/11/18 History Atorvastatin [Lipitor] 40 mg PO DAILY@1700 05/02/17 09/13/17 History Insulin Lispro [humaLOG Kwikpen] See Protocol SQ ACHS 05/02/17 09/13/17 History Acetaminophen Tab [Tylenol] 650 mg PO Q6H PRN 08/03/17 09/13/17 History Amino Acids/Protein Hydrolys 30 ml PO DAILY@1700 08/03/17 09/13/17 History [Pro-Stat Supplement] Bisacodyl [Dulcolax] 10 mg RECTAL DAILY PRN 08/03/17 09/13/17 History Budesonide/Formoterol Fumarate 2 puff INHALATION RT-DAILY PRN 08/03/17 09/13/17 History [Symbicort 80-4.5 Mcg Inhaler] Cholecalciferol (Vitamin D3) 2,000 unit PO DAILY@1700 08/03/17 09/13/17 History [Vitamin D3] Cyclobenzaprine [Flexeril] 5 mg PO TID PRN 08/03/17 09/13/17 History Docusate Sodium [Dok] 200 mg PO BID@0800,1700 08/03/17 09/13/17 History Ferrous Sulfate [Feosol] 325 mg PO DAILY@0 08/03/17 09/13/17 History Furosemide [Lasix] 20 mg PO BID@0800,1700 08/03/17 09/13/17 History Glucerna Shake 1 can PO HS 08/03/17 09/13/17 History HYDROcodone/APAP 10-325MG [Reasnor 1 tab PO Q4HR PRN 08/03/17 09/13/17 History 10-325] L.acidoph,Paracasei, B.lactis 1 cap PO DAILY 08/03/17 09/13/17 History [Probiotic] Magnesium Hydroxide [Milk of 2,400 mg PO DAILY PRN 08/03/17 09/13/17 History Magnesia] Metoprolol Tartrate [Lopressor] 12.5 mg PO BID@0800,1700 08/03/17 09/13/17 History Na Phos,M-B/Na Phos,Di-Ba [Fleet 133 ml RECTAL ONCE PRN 08/03/17 09/13/17 History Adult] Polyethylene Glycol 3350 [Miralax] 17 gm PO DAILY PRN 08/03/17 09/13/17 History Potassium Chloride ER [K-Dur 20] 20 meq PO DAILY@1700 08/03/17 09/13/17 History Pregabalin [Lyrica] 200 mg PO BID@0800,2100 08/03/17 09/13/17 History Albuterol Inhaler [Ventolin Hfa 2 puff INHALATION RT-Q4H PRN 09/07/17 09/13/17 History Inhaler] Insulin Lispro [humaLOG Kwikpen] 6 unit SQ TID@0700,1100,1730 09/07/17 09/13/17 History Mirabegron [Myrbetriq] 50 mg PO DAILY 09/07/17 09/13/17 History Ondansetron [Zofran] 4 mg PO Q8HR PRN 09/07/17 09/13/17 History Sennosides/Docusate Sodium [Shayy 2 tab PO DAILY 09/07/17 09/13/17 History Colace] Aspirin EC [Ecotrin Low Dose] 81 mg PO DAILY@1700 09/13/17 09/13/17 History Cephalexin [Keflex] 500 mg PO TID@08,14,20 09/13/17 09/13/17 History Collagenase [Santyl] 1 applic TOPICAL DAILY 09/13/17 09/13/17 History Insulin Detemir [Levemir] 20 unit SQ HS 09/13/17 09/13/17 History Miconazole Nitrate [Lotrimin AF 1 applic TOPICAL BID 09/13/17 09/13/17 History Powder] Sulfamethox-Tmp 800-160Mg [Bactrim 1 tab PO BID@0800,2100 09/13/17 09/13/17 History DS 800-160 mg] Allergies Allergy/AdvReac Type Severity Reaction Status Date / Time Iodinated Contrast- Oral and Allergy Unknown Verified 09/13/17 19:02 IV Dye iodine Allergy Unknown Verified 09/07/17 15:32 Physical Exam Vitals: Vital Signs Temp Pulse Pulse Pulse Resp BP BP 09/14/17 12:17 101 H 09/14/17 12:07 100 09/14/17 08:15 96.6 F L 104 H 18 119/78 09/14/17 08:13 102 H 09/14/17 08:02 105 H 09/14/17 04:00 98.3 F 95 98 18 142/67 09/14/17 00:00 98.3 F 107 H 98 19 137/69 09/13/17 21:24 98.7 F 101 H 20 121/57 09/13/17 21:09 98.8 F 98 16 120/65 09/13/17 20:14 108 H 16 131/62 09/13/17 19:07 88 09/13/17 18:54 84 09/13/17 18:34 16 09/13/17 18:27 98.2 F 100 16 129/64 09/13/17 18:25 98.2 F 100 16 159/72 Pulse Ox 09/14/17 12:17 09/14/17 12:07 09/14/17 08:15 93 L 09/14/17 08:13 09/14/17 08:02 94 L 09/14/17 04:00 93 L 09/14/17 00:00 93 L 09/13/17 21:24 92 L 09/13/17 21:09 93 L 09/13/17 20:14 93 L 09/13/17 19:07 09/13/17 18:54 09/13/17 18:34 09/13/17 18:27 95 09/13/17 18:25 95 Intake and Output 09/13/17 09/14/17 09/14/17 22:59 06:59 14:59 Intake Total 60 Output Total 600 1600 300 Balance -600 -1600 -240 Intake: Oral 60 Output: Urine 600 1600 300 Other: Voiding Method Bedpan Bedpan Diaper Diaper # Voids 1 1 1 # Bowel Movements 0 Weight 115.5 kg 114.5 kg PHYSICAL EXAMINATION: GENERAL: The patient is alert and oriented x3, not in any acute distress. Well developed, well nourished. HEENT: Pupils are round and equally reacting to light. EOMI. No scleral icterus. No conjunctival pallor. Normocephalic, atraumatic. No pharyngeal erythema. No thyromegaly. CARDIOVASCULAR: S1 and S2 present. No murmurs, rubs, or gallops. PULMONARY: Chest is clear to auscultation, no wheezing or crackles. ABDOMEN: Soft, nontender, nondistended, normoactive bowel sounds. No palpable organomegaly. MUSCULOSKELETAL: No joint swelling or deformity. EXTREMITIES: No cyanosis, clubbing, but at a lower limb edema which is chronic and patient has a circumferential deep stage 3-4 ulcer above the ankle area with some surrounding redness base appears to be clean NEUROLOGICAL: Gross neurological examination did not reveal any focal deficits. SKIN: No rashes. Results CBC & Chem 7: 09/14/17 05:48 09/14/17 05:48 Labs: Abnormal Lab Results - Last 24 Hours (Table) 09/13/17 09/13/17 09/13/17 Range/Units 18:30 18:30 18:30 WBC 11.7 H (3.8-10.6) k/uL Hct 46.1 H (34.0-46.0) % MCHC 30.0 L (31.0-37.0) g/dL RDW 25.2 H (11.5-15.5) % PT 12.2 H (9.0-12.0) sec INR 1.3 H (<1.2) Sodium 136 L (137-145) mmol/L Glucose 152 H (74-99) mg/dL POC Glucose (mg/dL) (75-99) mg/dL Calcium 10.7 H (8.4-10.2) mg/dL Albumin 3.4 L (3.5-5.0) g/dL 09/13/17 09/14/17 09/14/17 Range/Units 22:20 05:48 05:48 WBC (3.8-10.6) k/uL Hct 46.4 H (34.0-46.0) % MCHC (31.0-37.0) g/dL RDW 24.2 H (11.5-15.5) % PT (9.0-12.0) sec INR (<1.2) Sodium (137-145) mmol/L Glucose 318 H (74-99) mg/dL POC Glucose (mg/dL) 159 H (75-99) mg/dL Calcium 10.6 H (8.4-10.2) mg/dL Albumin (3.5-5.0) g/dL 09/14/17 09/14/17 Range/Units 06:12 11:25 WBC (3.8-10.6) k/uL Hct (34.0-46.0) % MCHC (31.0-37.0) g/dL RDW (11.5-15.5) % PT (9.0-12.0) sec INR (<1.2) Sodium (137-145) mmol/L Glucose (74-99) mg/dL POC Glucose (mg/dL) 294 H 319 H (75-99) mg/dL Calcium (8.4-10.2) mg/dL Albumin (3.5-5.0) g/dL Thrombosis Risk Factor Assmnt - Choose All That Apply Any of the Below Risk Factors Present?: Yes Each Factor Represents 1 point: Medical pt on bed rest, Obesity (BMI >25), Serious lung disease incl. pneumonia (< 1month), Swollen legs (current) Other Risk Factors: Yes Each Risk Factor Represents 2 Points: Age 61-74 years, Patient confined to bed Thrombosis Risk Factor Assessment Total Risk Factor Score: 8 Thrombosis Risk Factor Assessment Level: High Risk Assessment and Plan Plan: -Shortness of breath: Etiology is unclear patient has hypoxic respiratory failure is on 5 L of oxygen patient does not appear to have significant congestive heart failure exacerbation of CHF will obtain CT angios the chest to rule out any pulmonary embolism in spite of her being on anticoagulation already will also consult pulmonary regarding their opinion. Patient's Lasix will be discontinued and Solu-Medrol were discontinued as she doesn't have heart failure exacerbation R COPD exacerbation at this time. Patient doesn't wear any oxygen at home -Right lower extremity wound and possible infection along with the urinary tract infection: Consulted infectious disease patient will continue on Rocephin -Tachycardia due to hypoxemia from above-mentioned reasons. -COPD without any significant exacerbation -type 2 diabetes mellitus patient will be resumed on home regimen since we discontinued the steroids I'm hoping her blood sugars will be better controlled , there elevated now. -Hyperlipidemia next and heparin hypertension next and-rheumatoid arthritis -Hypothyroidism Promotion chronic medical problems patient will be resumed and continued on appropriate home medications.
[2017-09-14] MEDS: CEFEPIME 2 GM in SODIUM CHLORIDE 0.9% 50 ML IVPB SCH ×2 (14:20→20:56)
[2017-09-14] MEDS: HYDROcodone/APAP 10-325MG 1 EACH TAB PO PRN ×2 (14:27→20:32)
--- NOTE | 2017-09-14 14:35 | CT ---
EXAMINATION TYPE: CT angio chest DATE OF EXAM: 09/14/2017 COMPARISON: 07/15/[address] abdomen and pelvis 08/05/2017. HISTORY: 72 year-old female shortness of breath TECHNIQUE: Contiguous axial scanning of the chest performed with IV Contrast, patient injected with 7 3 mL of Isovue 370. Coronal/sagittal MIP reconstructions performed. CT DLP: 648 mGycm Automated exposure control for dose reduction was used. FINDINGS: Heart upper limits of normal in size without pericardial effusion. Coronary vessel calcifications are present and unremarkable for coronary artery disease. Mild atherosclerotic arch calcifications. Ectasia of the descending thoracic aorta 3.1 cm. Large caliber to the main right and left pulmonary arteries are 2.9 and 2.8 cm, respectively, suggest ing underlying pulmonary arterial hypertension. Prominent respiratory motion artifacts. No large central or lobar pulmonary embolus is seen. No evide nce for pulmonary embolus in the mid or lower lungs. Motion artifacts limit assessment of the segment al and subsegmental branches at the upper lungs. No thoracic lymphadenopathy. Chronic consolidation and volume loss medial right lower lobe, unchanged from 2013. The additional st jarrod scarring anterior right upper lobe relatively unchanged. There is biapical pleural-parenchymal scarring in mild emphysema. No pleural effusion or new consolidation seen. There is an epigastric ventral abdominal wall hernia measuring 9.0 cm wide containing the gastric ant rum and omental fat. The hernia spans 8.1 cm craniocaudal. A second ventral abdominal wall hernia is present just below it is only partially imaged with rectus diastases of 4.6 cm wide and hernia contai vernon both small bowel loops and portion of the colon. Visualized upper abdomen shows cholecystectomy clips and multiple bilateral renal lesions, partially visualized on the left measuring at least 10.2 cm. Fatty lesion posterior left kidney measures up to 3.6 cm. Bones: Endplate spondylosis throughout the mid to lower thoracic spine. End-stage degenerative change left shoulder. IMPRESSION: 1. RESPIRATORY MOTION ARTIFACTS LIMITING ASSESSMENT FOR PULMONARY EMBOLUS. NO PULMONARY EMBOLUS SEEN IN THE MID OR LOWER LUNGS. MANY OF THE SEGMENTAL AND SUBSEGMENTAL BRANCHES OF THE UPPER LUNGS ARE NON DIAGNOSTIC. 2. COPD WITH AREAS OF CHRONIC SCARRING. NO ACUTE PULMONARY PROCESS SEEN. 3. PULMONARY ARTERIAL HYPERTENSION AND CAD. 4. VENTRAL ABDOMINAL WALL HERNIAS ABOVE AND SEEN ON THE CT OF 08/05/2017. 5. BILATERAL KIDNEY LESIONS. 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 Larger l esions measuring up to at least 10.2 cm are most compatible with cysts.
--- NOTE | 2017-09-14 14:39 | P.CNPUL ---
History of Present Illness Consult date: 09/14/17 Reason for consult: dyspnea, COPD, hypoxemia Chief complaint: Shortness of breath History of present illness: Consult dated 09/14/2017 This is a 72-year-old female well-known to us. She apparently presented to the emergency room with complaints of shortness of breath and possible infection in her right leg. She has a history of a recent fracture and subsequent repair and in the development of a slowly healing ulcer to the right leg the patient apparently sees Dr. Patric Richard is a family doctor and also sees my partner for her lungs. She apparently has a history of underlying COPD from previous tobacco use. She quit many years back but does smoke about 25 years at a pack a day. She doesn't look ill my opinion. She is wearing nasal oxygen. She apparently does not were oxygen on a regular basis. The patient has been an out -of-hospital recently in the prior to this visit [facility] in the ICU for a couple days. She was seen by our team at that time. She has history of multiple medical problems including COPD diabetes DVT hyperlipidemia hypertension pneumonia pulmonary embolism rheumatoid arthritis hypothyroidism and multiple surgical procedures. Review of Systems A 12 point review of system is positive for shortness of breath. She also has a. Poorly healing ulcer to the right mid leg. This is subsequent to a fracture and surgical repair Past Medical History Past Medical History: Cancer, COPD, Diabetes Mellitus, Deep Vein Thrombosis (DVT ), Hyperlipidemia, Hypertension, Pneumonia, Pulmonary Embolus (PE), Rheumatoid Arthritis (RA), Skin Disorder, Thyroid Disorder Additional Past Medical History / Comment(s): stated "was to have total left knee surgery and and something is wrong with the blood work and now needing to have EGD & colonoscopy".mult ulcers to stomach,chest and breast-unk cause has had for over a yr-seen at [id number] with spleenectomy and radiation,DVTs & PE yrs ago.Uses walker and w/c. History of Any Multi-Drug Resistant Organisms: None Reported Past Surgical History: Appendectomy, Section, Cholecystectomy, Orthopedic Surgery Additional Past Surgical History / Comment(s): total rt knee Jan 2017, Splenectomy, Carpal tunnel release, rotator cuff, right bimalleolar fracture repair 06/2017 Past Anesthesia/Blood Transfusion Reactions: No Reported Reaction Past Psychological History: Depression Additional Psychological History / Comment(s): The patient is and lives at home with her . She was a tobacco smoker and stopped several years ago. She denies any significant alcohol or recreational drug use. Used to work in. retail sales. She has no experience her extensive travels. No animals in the home.. Smoking Status: Former smoker Past Alcohol Use History: None Reported Additional Past Alcohol Use History / Comment(s): quit smoking 1993,smoked approx 30 yrs,1 ppd. Past Drug Use History: None Reported - Past Family History Son(s) Family Medical History: No Reported History Additional Family Medical History / Comment(s): She relates that her parents of old age her mother was about 90 father was 88, without sniffing and medical troubles. She does relate that her son committed suicide but her daughter is quite healthy. Medications and Allergies Home Medications Medication Instructions Recorded Confirmed Type clonazePAM [KlonoPIN] 0.5 mg PO Q12H PRN 10/09/13 09/13/17 History sitaGLIPtin [Januvia] 100 mg PO DAILY@0800 10/09/13 09/13/17 History DULoxetine HCL [Cymbalta] 30 mg PO BID@0800,1700 11/27/15 09/13/17 History rOPINIRole HCL [Requip] 3 mg PO HS@2100 11/27/15 09/13/17 History Rivaroxaban [Xarelto] 20 mg PO DAILY@1700 05/12/16 09/13/17 History Allopurinol [Zyloprim] 100 mg PO DAILY@0800 09/20/16 09/13/17 History Levothyroxine Sodium [Synthroid] 100 mcg PO DAILY 09/20/16 09/13/17 History Omeprazole [PriLOSEC] 20 mg PO DAILY@0700 09/20/16 09/13/17 History Atorvastatin [Lipitor] 40 mg PO DAILY@1700 05/02/17 09/13/17 History Insulin Lispro [humaLOG Kwikpen] See Protocol SQ ACHS 05/02/17 09/13/17 History Acetaminophen Tab [Tylenol] 650 mg PO Q6H PRN 08/03/17 09/13/17 History Amino Acids/Protein Hydrolys 30 ml PO DAILY@1700 08/03/17 09/13/17 History [Pro-Stat Supplement] Bisacodyl [Dulcolax] 10 mg RECTAL DAILY PRN 08/03/17 09/13/17 History Budesonide/Formoterol Fumarate 2 puff INHALATION RT-DAILY PRN 08/03/17 09/13/17 History [Symbicort 80-4.5 Mcg Inhaler] Cholecalciferol (Vitamin D3) 2,000 unit PO DAILY@1700 08/03/17 09/13/17 History [Vitamin D3] Cyclobenzaprine [Flexeril] 5 mg PO TID PRN 08/03/17 09/13/17 History Docusate Sodium [Dok] 200 mg PO BID@0800,1700 08/03/17 09/13/17 History Ferrous Sulfate [Feosol] 325 mg PO DAILY@169908/03/17 09/13/17 History Furosemide [Lasix] 20 mg PO BID@0800,1700 08/03/17 09/13/17 History Glucerna Shake 1 can PO HS 08/03/17 09/13/17 History HYDROcodone/APAP 10-325MG [Norris 1 tab PO Q4HR PRN 08/03/17 09/13/17 History 10-325] L.acidoph,Paracasei, B.lactis 1 cap PO DAILY 08/03/17 09/13/17 History [Probiotic] Magnesium Hydroxide [Milk of 2,400 mg PO DAILY PRN 08/03/17 09/13/17 History Magnesia] Metoprolol Tartrate [Lopressor] 12.5 mg PO BID@0800,1700 08/03/17 09/13/17 History Na Phos,M-B/Na Phos,Di-Ba [Fleet 133 ml RECTAL ONCE PRN 08/03/17 09/13/17 History Adult] Polyethylene Glycol 3350 [Miralax] 17 gm PO DAILY PRN 08/03/17 09/13/17 History Potassium Chloride ER [K-Dur 20] 20 meq PO DAILY@0 08/03/17 09/13/17 History Pregabalin [Lyrica] 200 mg PO BID@0800,2100 08/03/17 09/13/17 History Albuterol Inhaler [Ventolin Hfa 2 puff INHALATION RT-Q4H PRN 09/07/17 09/13/17 History Inhaler] Insulin Lispro [humaLOG Kwikpen] 6 unit SQ TID@0700,1100,1730 09/07/17 09/13/17 History Mirabegron [Myrbetriq] 50 mg PO DAILY 09/07/17 09/13/17 History Ondansetron [Zofran] 4 mg PO Q8HR PRN 09/07/17 09/13/17 History Sennosides/Docusate Sodium [Shayy 2 tab PO DAILY 09/07/17 09/13/17 History Colace] Aspirin EC [Ecotrin Low Dose] 81 mg PO DAILY@1700 09/13/17 09/13/17 History Cephalexin [Keflex] 500 mg PO TID@08,14,20 09/13/17 09/13/17 History Collagenase [Santyl] 1 applic TOPICAL DAILY 09/13/17 09/13/17 History Insulin Detemir [Levemir] 20 unit SQ HS 09/13/17 09/13/17 History Miconazole Nitrate [Lotrimin AF 1 applic TOPICAL BID 09/13/17 09/13/17 History Powder] Sulfamethox-Tmp 800-160Mg [Bactrim 1 tab PO BID@0800,2100 09/13/17 09/13/17 History DS 800-160 mg] Allergies Allergy/AdvReac Type Severity Reaction Status Date / Time Iodinated Contrast- Oral and Allergy Unknown Verified 09/13/17 19:02 IV Dye iodine Allergy Unknown Verified 09/07/17 15:32 Physical Exam Osteopathic Statement: *. No significant issues noted on an osteopathic structural exam other than those noted in the History and Physical/Consult. Vitals: Vital Signs Temp Pulse Pulse Pulse Resp BP BP 09/14/17 12:17 101 H 09/14/17 12:07 100 09/14/17 08:15 96.6 F L 104 H 18 119/78 09/14/17 08:13 102 H 09/14/17 08:02 105 H 09/14/17 04:00 98.3 F 95 98 18 142/67 09/14/17 00:00 98.3 F 107 H 98 19 137/69 09/13/17 21:24 98.7 F 101 H 20 121/57 09/13/17 21:09 98.8 F 98 16 120/65 09/13/17 20:14 108 H 16 131/62 09/13/17 19:07 88 09/13/17 18:54 84 09/13/17 18:34 16 09/13/17 18:27 98.2 F 100 16 129/64 09/13/17 18:25 98.2 F 100 16 159/72 Pulse Ox 09/14/17 12:17 09/14/17 12:07 09/14/17 08:15 93 L 09/14/17 08:13 09/14/17 08:02 94 L 09/14/17 04:00 93 L 09/14/17 00:00 93 L 09/13/17 21:24 92 L 09/13/17 21:09 93 L 09/13/17 20:14 93 L 09/13/17 19:07 09/13/17 18:54 09/13/17 18:34 09/13/17 18:27 95 09/13/17 18:25 95 Intake and Output 09/13/17 09/14/17 09/14/17 22:59 06:59 14:59 Intake Total 60 Output Total 600 1600 300 Balance -600 -1600 -240 Intake: Oral 60 Output: Urine 600 1600 300 Other: Voiding Method Bedpan Bedpan Diaper Diaper # Voids 1 1 1 # Bowel Movements 0 Weight 115.5 kg 114.5 kg No acute distress, oriented 3. Nasal O2 in place. She does not appear to have any acute respiratory distress despite the fact that her saturations are low. HEENT examination is grossly unremarkable. Mucous membranes are moist. No oral lesions. Neck supple. Full range of motion. No adenopathy thyromegaly or neck vein distention. Cardiovascular examination reveals regular rhythm rate. S1-S2 normal. No S3 or S4. No discernible murmur noted. Lungs reveal clear breath sounds. Her sounds are equal bilaterally. No adventitious lung sounds including wheezes rhonchi or crackles. Abdomen soft bowel sounds are heard. No masses or tenderness. Extremities are intact. No cyanosis clubbing or edema. There is a shallow, poorly healing ulcer noted to the right mid leg. Skin is without rash or lesion. Neurologic examination is brief but nonfocal. Results - Laboratory Findings CBC and BMP: 09/14/17 05:48 09/14/17 05:48 PT/INR, D-dimer PT 12.2 sec (9.0-12.0) H 09/13/17 18:30 INR 1.3 (<1.2) H 09/13/17 18:30 Abnormal lab findings: Abnormal Labs 09/13/17 09/13/17 09/13/17 18:30 18:30 18:30 WBC 11.7 H Hct 46.1 H MCHC 30.0 L RDW 25.2 H PT 12.2 H INR 1.3 H Sodium 136 L Glucose 152 H POC Glucose (mg/dL) Calcium 10.7 H Albumin 3.4 L 09/13/17 09/14/17 09/14/17 22:20 05:48 05:48 WBC Hct 46.4 H MCHC RDW 24.2 H PT INR Sodium Glucose 318 H POC Glucose (mg/dL) 159 H Calcium 10.6 H Albumin 09/14/17 09/14/17 06:12 11:25 WBC Hct MCHC RDW PT INR Sodium Glucose POC Glucose (mg/dL) 294 H 319 H Calcium Albumin - Diagnostic Findings Chest x-ray: image reviewed (Chest x-rays labs and medications are reviewed) Assessment and Plan Assessment: Assessment Shortness of breath and low saturations, of unclear etiology. A couple diagnostic possibilities exist including COPD exacerbation although her lungs are clear and don't exhibit any wheezes, recurrent pulmonary embolism, not very likely given the fact the patient is on a factor X a inhibitor, and heart failure, not likely because of patient's chest x-ray looks relatively normal and her N-terminal proBNP was not particularly high. History of COPD from previous tobacco use Diabetes mellitus History of DVT and pulmonary embolism Extremities rheumatoid arthritis Hypertension by history Hyperlipidemia by history Hypothyroidism Recent fracture of the right leg with surgical repair and subsequent slowly healing ulcer to the right mid leg Multiple other surgical procedures as listed in her H&P. Plan: Plan dated 09/14/2017 The patient did have a CT angiogram ordered. We will look at [facility] but the official report is currently pending. Chest x-ray suggested a possible pericardial effusion so echocardiogram should be done. This might be an alternative explanation for the patient shortness of breath. In addition, labs x-rays a medications are reviewed. We'll make sure that she is on her usual COPD medications. Does not appear that she needs steroids at this time. She does not appear to be infected from the pulmonary standpoint at this time. She was [facility] by one [facility] doctors today. Additional recommendations and suggestions are forthcoming. Time with Patient: Greater than 30
[2017-09-14 14:48] VITALS: BMI 49.3
[2017-09-14 16:37] LABS: Glucose,Whole Blood 340 mg/dL (75-99)
[2017-09-14] MEDS: ASPIRIN 81 MG PO SCH (17:06)
[2017-09-14] MEDS: FERROUS SULFATE 325 MG TAB PO SCH (17:07)
[2017-09-14] MEDS: FUROSEMIDE 20 MG TAB PO SCH (17:07)
[2017-09-14] MEDS: DOCUSATE 100 MG CAP PO SCH (17:07)
[2017-09-14] MEDS: POTASSIUM CHLORIDE ER 20 MEQ TAB.ER PO SCH (17:08)
[2017-09-14 19:06] LABS: Amorphous Sediment,Urine Rare /hpf; Appearance,Urine Cloudy (Clear); Bilirubin,Urine Negative (Negative); Blood,Urine Negative (Negative); Color,Urine Yellow; Glucose,Urine (UA) 4+ (Negative); Ketones,Urine Negative (Negative); Leukocyte Esterase,Urine Negative (Negative); Nitrite,Urine Negative (Negative); PH, Urine 6.5 (5.0-8.0); Protein,Urine Trace (Negative); RBC,Urine 13 /hpf (0-5); Specific Gravity,Urine 1.044 (1.001-1.035); Squamous Epithelial Cell,Urine 1 /hpf (0-4); Urobilinogen,Urine <2.0 mg/dL (<2.0); WBC,Urine 8 /hpf (0-5)
[2017-09-14] MEDS: INSULIN DETEMIR 100 UNIT/ML 10 ML VIAL SQ SCH (20:32)
[2017-09-14] MEDS: NYSTATIN 100,000 UNIT/GM POWD 15 GM TOPICAL SCH (20:34)
[2017-09-14 20:48] LABS: Glucose,Whole Blood 321 mg/dL (75-99)
--- NOTE | 2017-09-14 23:36 | CONS ---
CONSULTATION DATE OF SERVICE: 09/14/2017. REASON FOR FOLLOWUP: Right leg wound cellulitis. HISTORY OF PRESENT ILLNESS: The patient is a 72-year-old female who did have a recent right ankle fracture, status post operative repair. She was recently admitted at [facility] with sepsis, also thought to be right lower extremity cellulitis along with a UTI. She did have a small wound on the right anterior briscoe area. The culture done from that site at the [facility] did show Corynebacterium, likely a skin alejandro, and was justified to be a contamination. She did have Morganella in her urine. Subsequently discharged to the [facility] on oral Bactrim to cover for the Morganella and Keflex for the lower extremity cellulitis. The patient is now brought back to the [facility] ER last night with the chief complaints of low O2 sats. The patient noticed to be hypoxic with oxygen saturation down to 80%. The patient apparently also had a right leg swelling and redness along with a fever. The patient denies significant pain in the right leg area. The patient denies having any chest pain. Minimal shortness of breath. No significant cough or sputum production. No nausea, no vomiting. No abdominal pain or any diarrhea. The patient has been evaluated by the ER physician. CT angiogram has been done with no embolism. No significant consolidation. She did have x-rays of the ankle, diffuse soft tissue edema. Patient with no further documented fever. White count mildly elevated at 11.7, repeat at 6.6. Urine was slightly cloudy, only 8 WBCs. Right leg wound culture has been obtained. Blood cultures were obtained, currently pending. She was started on Rocephin and admitted to hospital. Infectious Disease was consulted for further recommendation regarding antibiotic therapy. REVIEW OF SYSTEMS: CONSTITUTIONAL: Positive for weakness along with the fever. EYES: No complaint. ENT: No complaint. RESPIRATORY: As per HPI. CARDIOVASCULAR: No complaint. GENITOURINARY: As per HPI. GASTROINTESTINAL: No complaint. MUSCULOSKELETAL: No complaint. INTEGUMENTARY: As per HPI. PSYCHOLOGICAL: No complaint. ENDOCRINE: No complaint. NEUROLOGIC: No complaint. PAST MEDICAL HISTORY: Significant for COPD, diabetes mellitus, DVT, hypertension, hyperlipidemia, pneumonia, pulmonary embolism, rheumatoid arthritis, right ankle fracture. PAST SURGICAL HISTORY: Appendectomy, , cholecystectomy, to the right knee for patellar release, right bimalleolar fracture repair June 2017. SOCIAL HISTORY: Remote history of smoking, quit back in 1993, had about 30 pack-year smoking. No drinking or drug use. FAMILY HISTORY: No pertinent findings noticed. ALLERGIES: To CONTRAST DYE. MEDICATIONS: The patient is currently on: 1. Tylenol. 2. [place]. 3. Ventolin. 4. DuoNeb. 5. Zyloprim. 6. Aspirin. 7. Lipitor. 8. Dulcolax. 9. Rocephin. 10.Klonopin. 11.Santyl. 12.Colace. 13.Cymbalta. 14.Iron sulfate. 15.Lasix. 16.NovoLog. 17.Levemir. 18.Synthroid. 19.Tradjenta. 20.Lopressor. 21.Nystatin. 22.Zofran. 23.Protonix. 24.MiraLAX. EXAMINATION: Blood pressure 105/52 with a pulse of 90, temperature 97.7. She is 95% 3.5L nasal cannula. General description is an elderly female lying in bed in no distress. No tachypnea or accessory muscle of respiration use. HEENT shows no pallor or scleral icterus. Oral mucous membranes moist. No pharyngeal erythema or thrush. NECK: Trachea is central. No thyromegaly. LUNGS: Unlabored breathing with decreased breath sounds in the bases. No wheeze or crackle. HEART: S1, S2. Regular rate and rhythm. ABDOMEN: Soft. No tenderness. No guarding or rigidity. EXTREMITIES: Right leg and briscoe area did have a wound with some slough tissue at the base. Apparently she did have a mild kayla that was extension of the redness which seems to have receded. The ankle area incision is healed. Some swelling of the ankle area, but no redness. NEUROLOGICAL: Patient is awake, alert, oriented x3. Mood and affect normal. LABS: Hemoglobin is 14.7, white count 6.6. Admission white count was 11.7. BUN of 13, creatinine 0.69. Electrolytes have been normal. Blood and urine cultures are currently pending. DIAGNOSTIC IMPRESSION AND PLAN: Patient with admission to the hospital with fever and increasing shortness of breath in a patient noted to have recent admission to the [facility] hospital with sepsis secondary to right lower extremity cellulitis and urinary tract infection and now with recurrent cellulitis of the right leg. The patient did have a right ankle fracture repair. X- rays of the ankle area were reviewed with a radiologist and also the CT that was just done on September 07 did not show the wound is extended down to any of the hardware with a culture done at this facility in the ER was Morganella, the same she grew in her urine, but the cultures at the other facility were negative, so likely source of this cellulitis is a wound infection. Could be the same Morganella she grew at her last visit to the ER at this facility. PLAN: 1. We will obtain x-rays of the right leg with a marker at the wound site to see the same site of the hardware or not to make sure the hardware is not infected. 2. We will discontinue Rocephin and start the patient on cefepime 2 g q.12 to cover for the Morganella that is a gram-positive pathogen. 3. Local wound care with Santyl. 4. Will follow up on clinical condition and cultures to further adjust medication if needed. Thank you for this consultation. Will follow this patient along with you. MMODL / IJN: [id number] /
[2017-09-15 06:04] LABS: Glucose,Whole Blood 237 mg/dL (75-99)
[2017-09-15] MEDS: LEVOTHYROXINE 100 MCG TAB PO SCH (06:43)
[2017-09-15] MEDS: PANTOPRAZOLE 40 MG TABLET PO SCH (06:43)
[2017-09-15] MEDS: HYDROcodone/APAP 10-325MG 1 EACH TAB PO PRN ×3 (06:54→20:49)
[2017-09-15] MEDS: INSULIN ASPART 100 UNIT/ML 1 ML 10 ML VIAL SQ SCH ×7 (07:19→21:11)
[2017-09-15] MEDS: IPRATROPIUM-ALBUTEROL 3 ML NEB INHALATION SCH ×4 (08:14→20:07)
[2017-09-15] MEDS ORDERED: COLLAGENASE 250 UNIT/GM OINTMENT 30 GM TUBE TOPICAL SCH (09:00)
[2017-09-15] MEDS: LINAGLIPTIN 5 MG TABLET PO SCH (09:29)
[2017-09-15] MEDS: PREGABALIN 100 MG CAP PO SCH ×2 (09:29→20:42)
[2017-09-15] MEDS: DOCUSATE 100 MG CAP PO SCH ×2 (09:30→16:15)
[2017-09-15] MEDS: DULoxetine HCL 30 MG CAPSULE.DR PO SCH ×2 (09:30→16:16)
[2017-09-15] MEDS: FUROSEMIDE 20 MG TAB PO SCH (09:30)
[2017-09-15] MEDS: ALLOPURINOL 100 MG TAB PO SCH (09:30)
[2017-09-15] MEDS: SENNOSIDES-DOCUSATE SODIUM 1 EACH TAB PO SCH (09:31)
[2017-09-15] MEDS: CEFEPIME 2 GM in SODIUM CHLORIDE 0.9% 50 ML IVPB SCH ×2 (09:31→20:42)
[2017-09-15] MEDS: METOPROLOL TARTRATE 12.5 MG TAB PO SCH ×2 (09:31→16:16)
[2017-09-15] MEDS: NYSTATIN 100,000 UNIT/GM POWD 15 GM TOPICAL SCH ×2 (09:33→20:43)
[2017-09-15] MEDS: COLLAGENASE 250 UNIT/GM OINTMENT 30 GM TUBE TOPICAL SCH (09:33)
--- NOTE | 2017-09-15 11:18 | ECHOF ---
Referral Reason:Pericardial effusion MEASUREMENTS -------- HEIGHT: 152.4 cm WEIGHT: 114.3 kg BP: 119/78 IVSd: 1.0 cm (0.6 - 1.1) LVIDd: 4.0 cm (3.9 - 5.3) LVPWd: 1.1 cm (0.6 - 1.1) IVSs: 1.4 cm LVIDs: 2.5 cm LVPWs: 1.8 cm LAESV Index (A-L): 23.70 ml/m Ao Diam: 2.8 cm (2.0 - 3.7) AV Cusp: 1.3 cm (1.5 - 2.6) LA Diam: 3.5 cm (2.7 - 3.8) MV EXCURSION: 18.742 mm (> 18.000) MV EF SLOPE: 43 mm/s (70 - 150) EPSS: 0.5 cm MV E Gerardo: 0.90 m/s MV DecT: 99 ms MV A Gerardo: 1.21 m/s MV E/A Ratio: 0.74 AV maxP.88 mmHg AV meanP.58 mmHg RAP: 5.00 mmHg RVSP: 33.95 mmHg FINDINGS -------- Resting tachycardia (HR>100bpm). This was a technically good study. The left ventricular size is normal. Left ventricular wall thickness is normal. Overall left vent ricular systolic function is normal with, an EF between 55 - 60 %. The right ventricle is normal in size and function. The left atrium is normal in size. The right atrium is normal in size. Aortic valve is trileaflet and is mildly thickened. There is mild aortic stenosis present. Peak/m aaron gradient across the Aortic Valve is 14.88mmHg / 8.58mmHg. The mitral valve leaflets are mildly thickened. There is trace mitral regurgitation. Trace tricuspid regurgitation present. The right ventricular systolic pressure, as measured by Dopp ler, is 33.95mmHg. Pulmonic valve appears structurally normal. The aortic root size is normal. Normal inferior vena cava with normal inspiratory collapse consistent with estimated right atrial pre ssure of 5 mmHg. The pericardium is normal. CONCLUSIONS -------- 1. Resting tachycardia (HR>100bpm). 2. This was a technically good study. 3. The left ventricular size is normal. 4. Left ventricular wall thickness is normal. 5. Overall left ventricular systolic function is normal with, an EF between 55 - 60 %. 6. The right ventricle is normal in size and function. 7. The left atrium is normal in size. 8. The right atrium is normal in size. 9. Aortic valve is trileaflet and is mildly thickened. 10. There is mild aortic stenosis present. 11. Peak/mean gradient across the Aortic Valve is 14.88mmHg / 8.58mmHg. 12. The mitral valve leaflets are mildly thickened. 13. There is trace mitral regurgitation. 14. Trace tricuspid regurgitation present. 15. The right ventricular systolic pressure, as measured by Doppler, is 33.95mmHg. 16. Pulmonic valve appears structurally normal. 17. The aortic root size is normal. 18. Normal inferior vena cava with normal inspiratory collapse consistent with estimated right atrial pressure of 5 mmHg. 19. The pericardium is normal. GUIDANCE AND CONTROL SYSTEM ENGINEER: Adriana Chao RDCS
[2017-09-15 11:52] LABS: Glucose,Whole Blood 205 mg/dL (75-99)
[2017-09-15] MEDS: FUROSEMIDE 10 MG/ML 2 ML VIAL IV SCH ×2 (11:54→20:42)
--- NOTE | 2017-09-15 12:23 | P.PN ---
Subjective 69-year-old admitted with the acute hypoxic respiratory failure etiology is unknown patient had a CAT scan of the chest which did not show any pulmonary embolism patient does not appear to have CHF and COPD exacerbation patient will empirically given 20 mg of IV Lasix instead of oral Lasix and see how she does pulmonary is recommending an echocardiogram to see if she has any pericardial effusion echocardiogram exam was ordered. Patient is presently and onto and half liters of oxygen as compared to 5 L yesterday Constitutional: Denied any fatigue denied any fever. Cardio vascular: denied any chest pain, palpitations Gastrointestinal denied any nausea vomiting Pulmonary: Denied any shortness of breath cough Neurologic denied any new focal deficits Objective - Vital Signs Vital signs: Vital Signs Temp 97.9 F 09/15/17 08:00 Pulse 102 H 09/15/17 11:51 Resp 16 09/15/17 08:00 BP 126/59 09/15/17 08:00 Pulse Ox 90 L 09/15/17 08:00 Intake & Output 09/14/17 09/15/17 09/15/17 18:59 06:59 18:59 Intake Total 420 300 260 Output Total 500 500 Balance -80 -200 260 Weight 114.5 kg 110.5 kg Intake: Oral 420 260 Other 300 Output: Urine 500 500 Other: Voiding Method Bedpan Bedpan Bedpan Diaper Diaper Diaper # Voids 1 0 # Bowel Movements 0 - Exam PHYSICAL EXAMINATION: GENERAL: The patient is alert and oriented x3, not in any acute distress. Well developed, well nourished. HEENT: Pupils are round and equally reacting to light. EOMI. No scleral icterus. No conjunctival pallor. Normocephalic, atraumatic. No pharyngeal erythema. No thyromegaly. CARDIOVASCULAR: S1 and S2 present. No murmurs, rubs, or gallops. PULMONARY: Chest is clear to auscultation, no wheezing or crackles. ABDOMEN: Soft, nontender, nondistended, normoactive bowel sounds. No palpable organomegaly. MUSCULOSKELETAL: No joint swelling or deformity. EXTREMITIES: No cyanosis, clubbing, but at a lower limb edema which is chronic and patient has a circumferential deep stage 3-4 ulcer above the ankle area with some surrounding redness base appears to be clean NEUROLOGICAL: Gross neurological examination did not reveal any focal deficits. SKIN: No rashes. - Labs CBC & Chem 7: 09/14/17 05:48 09/14/17 05:48 Labs: Abnormal Lab Results - Last 24 Hours (Table) 09/14/17 09/14/17 09/14/17 Range/Units 16:36 18:35 20:46 POC Glucose (mg/dL) 340 H 321 H (75-99) mg/dL Urine Appearance Cloudy H (Clear) Ur Specific [place] 1.044 H (1.001-1.035) Urine Protein Trace H (Negative) Urine Glucose (UA) 4+ H (Negative) Urine RBC 13 H (0-5) /hpf Urine WBC 8 H (0-5) /hpf Amorphous Sediment Rare H (None) /hpf 09/15/17 09/15/17 Range/Units 06:02 11:40 POC Glucose (mg/dL) 237 H 205 H (75-99) mg/dL Urine Appearance (Clear) Ur Specific [place]ushing (1.001-1.035) Urine Protein (Negative) Urine Glucose (UA) (Negative) Urine RBC (0-5) /hpf Urine WBC (0-5) /hpf Amorphous Sediment (None) /hpf Microbiology - Last 24 Hours (Table) 09/14/17 18:35 Urine Culture - Preliminary Urine,Voided 09/13/17 18:30 Blood Culture - Preliminary Blood No Growth after 24 hours 09/14/17 08:40 Gram Stain - Preliminary Leg - Right Wound Culture - Preliminary Assessment and Plan Plan: -Shortness of breath: As mentioned above etiology is unclear management as mentioned in the interval history -Right lower extremity wound and possible infection along with the urinary tract infection: Consulted infectious disease and patient was started on cefepime -Tachycardia due to hypoxemia from above-mentioned reasons. -COPD without any significant exacerbation -type 2 diabetes mellitus patient will be resumed on home regimen since we discontinued the steroids I'm hoping her blood sugars will be better controlled , there elevated now. -Hyperlipidemia next and heparin hypertension next and-rheumatoid arthritis -Hypothyroidism Promotion chronic medical problems patient will be resumed and continued on appropriate home medications.
--- NOTE | 2017-09-15 13:03 | XR ---
Right leg HISTORY: Cellulitis, open nonhealing wound overlying hardware 2 views of the right leg submitted on 4 images Comparison to prior exam 05/12/2016 Patient is status post right knee arthroplasty. Bone mineralization is stable. Soft tissue swelling i s noted. Postop change noted to the ankle status post open reduction internal fixation. Lucency in th e soft tissues compatible with patient's history of open wound. Alignment is maintained. No periostit is to suggest osteomyelitis IMPRESSION: Postop findings, soft tissue swelling, findings compatible with patient's history. Bone s can may be of benefit.
--- NOTE | 2017-09-15 13:15 | P.PN ---
Subjective Progress Note Date: 09/15/17 Principal diagnosis: Consult dated 09/14/2017 This is a 72-year-old female well-known to us. She apparently presented to the emergency room with complaints of shortness of breath and possible infection in her right leg. She has a history of a recent fracture and subsequent repair and in the development of a slowly healing ulcer to the right leg the patient apparently sees Dr. Patric Richard is a family doctor and also sees my partner for her lungs. She apparently has a history of underlying COPD from previous tobacco use. She quit many years back but does smoke about 25 years at a pack a day. She doesn't look ill my opinion. She is wearing nasal oxygen. She apparently does not were oxygen on a regular basis. The patient has been an out -of-hospital recently in the prior to this visit [facility] in the ICU for a couple days. She was seen by our team at that time. She has history of multiple medical problems including COPD diabetes DVT hyperlipidemia hypertension pneumonia pulmonary embolism rheumatoid arthritis hypothyroidism and multiple surgical procedures. The patient is seen today 09/15/2017 in follow-up on the selective care unit. She is awake and alert in no acute distress. She denies any worsening shortness of breath, cough or congestion. No chest pain or palpitations. Blood , wound urine cultures revealed no growth to date. She's been afebrile. Slightly tachycardic. Maintain O2 saturations in the 90s on 3 and half liters per minute per nasal cannula. Blood pressure stable. Objective - Vital Signs Vital signs: Vital Signs Temp 97.9 F 09/15/17 08:00 Pulse 102 H 09/15/17 11:51 Resp 16 09/15/17 08:00 BP 126/59 09/15/17 08:00 Pulse Ox 90 L 09/15/17 08:00 Intake & Output 09/14/17 09/15/17 09/15/17 18:59 06:59 18:59 Intake Total 420 300 260 Output Total 500 500 Balance -80 -200 260 Weight 114.5 kg 110.5 kg Intake: Oral 420 260 Other 300 Output: Urine 500 500 Other: Voiding Method Bedpan Bedpan Bedpan Diaper Diaper Diaper # Voids 1 0 # Bowel Movements 0 - Exam GENERAL EXAM: Morbidly obese. Alert, comfortable in no apparent distress. HEAD: Normocephalic. EYES: Normal reaction of pupils, equal size. NOSE: Clear with pink turbinates. THROAT: No erythema or exudates. NECK: No masses, no JVD. CHEST: No chest wall deformity. LUNGS: Equal air entry with no crackles, rhonchi or wheeze. CVS: S1 and S2 normal with no audible murmur, regular rhythm. ABDOMEN: Obese, normal bowel sounds, no guarding or rigidity. SPINE: No scoliosis or deformity SKIN: No rashes CENTRAL NERVOUS SYSTEM: No focal deficits, tone is normal in all 4 extremities. EXTREMITIES: There is peripheral edema. The dressing to the right lateral lower extremity dry and intact. No clubbing, no cyanosis. Peripheral pulses are intact. - Labs CBC & Chem 7: 09/14/17 05:48 09/14/17 05:48 Labs: Abnormal Lab Results - Last 24 Hours (Table) 09/14/17 09/14/17 09/14/17 Range/Units 16:36 18:35 20:46 POC Glucose (mg/dL) 340 H 321 H (75-99) mg/dL Urine Appearance Cloudy H (Clear) Ur Specific [place] 1.044 H (1.001-1.035) Urine Protein Trace H (Negative) Urine Glucose (UA) 4+ H (Negative) Urine RBC 13 H (0-5) /hpf Urine WBC 8 H (0-5) /hpf Amorphous Sediment Rare H (None) /hpf 09/15/17 09/15/17 Range/Units 06:02 11:40 POC Glucose (mg/dL) 237 H 205 H (75-99) mg/dL Urine Appearance (Clear) Ur Specific [place] (1.001-1.035) Urine Protein (Negative) Urine Glucose (UA) (Negative) Urine RBC (0-5) /hpf Urine WBC (0-5) /hpf Amorphous Sediment (None) /hpf Microbiology - Last 24 Hours (Table) 09/14/17 18:35 Urine Culture - Preliminary Urine,Voided 09/13/17 18:30 Blood Culture - Preliminary Blood No Growth after 24 hours 09/14/17 08:40 Gram Stain - Preliminary Leg - Right Wound Culture - Preliminary Assessment and Plan Assessment: Assessment Shortness of breath and low saturations, of unclear etiology. A couple diagnostic possibilities exist including COPD exacerbation although her lungs are clear and don't exhibit any wheezes, recurrent pulmonary embolism, not very likely given the fact the patient is on a factor X a inhibitor, and heart failure, not likely because of patient's chest x-ray looks relatively normal and her N-terminal proBNP was not particularly high. History of COPD from previous tobacco use Diabetes mellitus History of DVT and pulmonary embolism Extremities rheumatoid arthritis Hypertension by history Hyperlipidemia by history Hypothyroidism Recent fracture of the right leg with surgical repair and subsequent slowly healing ulcer to the right mid leg Multiple other surgical procedures as listed in her H&P. Plan: The patient is seen and evaluated by Dr. Elliott. She is stable from the pulmonary standpoint and could be transferred back to the [facility] for further inpatient rehabilitation. Continue oxygen as needed. Continue DuoNeb inhalations 4 times a day and when necessary and Symbicort. She remains anticoagulated with Xarelto. Follow-up in our office in the next 1-2 weeks if possible. I, the cosigning physician, performed a history & physical examination of the patient. Lungs sounds are clear. Maintaining good O2 saturations in the 90s on 3.5 L/m per nasal cannula. I discussed the assessment and plan of care with my nurse practitioner, Ayana Nova. I attest to the above note as dictated by her.
[2017-09-15] MEDS: ASPIRIN 81 MG PO SCH (16:15)
[2017-09-15] MEDS: ATORVASTATIN 40 MG TAB PO SCH (16:15)
[2017-09-15] MEDS: RIVAROXABAN 20 MG TAB PO SCH (16:16)
[2017-09-15] MEDS: POTASSIUM CHLORIDE ER 20 MEQ TAB.ER PO SCH (16:16)
[2017-09-15] MEDS: FERROUS SULFATE 325 MG TAB PO SCH (16:16)
[2017-09-15 16:37] LABS: Glucose,Whole Blood 200 mg/dL (75-99)
[2017-09-15 20:38] LABS: Glucose,Whole Blood 227 mg/dL (75-99)
--- NOTE | 2017-09-15 22:06 | PN ---
PROGRESS NOTE DATE OF SERVICE: 09/15/2017 REASON FOR FOLLOWUP: Left upper extremity wound cellulitis. INTERVAL HISTORY: The patient is afebrile. She is breathing comfortably. Denies having any chest pain or cough. No abdominal pain or any worsening pain in the right leg area. PHYSICAL EXAMINATION: Blood pressure 107/63, pulse of 96, temperature 96.6. She is 97% on 3 L nasal cannula. General description is an elderly female lying in bed in no distress. RESPIRATORY SYSTEM: Unlabored breathing. Clear to auscultation anteriorly. HEART: S1, S2. Regular rate and rhythm. ABDOMEN: Soft. No tenderness. RIGHT LEG: Swelling persists, but the redness has improved. LABS: White count of 6.6. Blood culture this admission currently pending. Wound culture currently pending. She did have repeat x-rays with a marker at the wound site which was reviewed with Dr. Lino, and the wound is not in the same proximity as the hardware. DIAGNOSTIC IMPRESSION AND PLAN: Patient admitted the hospital with right lower extremity cellulitis with wound infection. Patient at this time will continue with local wound care with Santyl followed by moist dressing. Antibiotic to continue in the form of cefepime. Continue with supportive care. MMODL / IJN: [id number] /
[2017-09-15] MEDS: INSULIN DETEMIR 100 UNIT/ML 10 ML VIAL SQ SCH (23:32)
[2017-09-16] MEDS: LEVOTHYROXINE 100 MCG TAB PO SCH (06:16)
[2017-09-16] MEDS: PANTOPRAZOLE 40 MG TABLET PO SCH (06:16)
[2017-09-16 06:43] LABS: Glucose,Whole Blood 128 mg/dL (75-99)
[2017-09-16] MEDS: INSULIN ASPART 100 UNIT/ML 1 ML 10 ML VIAL SQ SCH ×7 (06:53→21:18)
[2017-09-16 07:04] LABS: Anisocytosis Marked; HCT 44.2 % (34.0-46.0); HGB 14.2 gm/dL (11.4-16.0); Hypochromasia Moderate; MCH 30.1 pg (25.0-35.0); MCHC 32.2 g/dL (31.0-37.0); MCV 93.4 fL (80.0-100.0); Macrocytosis Slight; Microcytosis Slight; Platelet Count 341 k/uL (150-450); RBC 4.74 m/uL (3.80-5.40); WBC 8.2 k/uL (3.8-10.6)
[2017-09-16 07:17] LABS: Calcium 10.4 mg/dL (8.4-10.2); Potassium 4.4 mmol/L (3.5-5.1)
[2017-09-16] MEDS: IPRATROPIUM-ALBUTEROL 3 ML NEB INHALATION SCH ×4 (07:42→19:20)
[2017-09-16] MEDS: HYDROcodone/APAP 10-325MG 1 EACH TAB PO PRN ×4 (08:49→22:46)
[2017-09-16] MEDS: ALLOPURINOL 100 MG TAB PO SCH (08:52)
[2017-09-16] MEDS: DOCUSATE 100 MG CAP PO SCH ×2 (08:52→16:28)
[2017-09-16] MEDS: LINAGLIPTIN 5 MG TABLET PO SCH (08:53)
[2017-09-16] MEDS: DULoxetine HCL 30 MG CAPSULE.DR PO SCH ×2 (08:53→16:28)
[2017-09-16] MEDS: METOPROLOL TARTRATE 12.5 MG TAB PO SCH ×2 (08:53→16:28)
[2017-09-16] MEDS: FUROSEMIDE 10 MG/ML 2 ML VIAL IV SCH ×2 (08:54→21:31)
[2017-09-16] MEDS: SENNOSIDES-DOCUSATE SODIUM 1 EACH TAB PO SCH (08:54)
[2017-09-16] MEDS: NYSTATIN 100,000 UNIT/GM POWD 15 GM TOPICAL SCH ×2 (08:55→21:31)
[2017-09-16] MEDS: COLLAGENASE 250 UNIT/GM OINTMENT 30 GM TUBE TOPICAL SCH (08:56)
[2017-09-16] MEDS: PREGABALIN 100 MG CAP PO SCH ×2 (08:59→21:31)
[2017-09-16] MEDS: CEFEPIME 2 GM in SODIUM CHLORIDE 0.9% 50 ML IVPB SCH ×2 (09:45→21:25)
[2017-09-16 11:33] LABS: Glucose,Whole Blood 218 mg/dL (75-99)
--- NOTE | 2017-09-16 13:40 | P.DS ---
Providers Date of admission: 09/13/17 20:16 Attending physician: Ashley Goodson Consults: 09/13/17 23:48 Consult Physician Routine Consulting Provider: Aditya Ramos Consult Reason/Comments: wound/infecious process` Do you want consulting provider notified?: Yes, Notify in am 09/14/17 11:13 Consult Physician Routine Consulting Provider: Aditya Ramos Consult Reason/Comments: Possible infected wound UTI Do you want consulting provider notified?: Yes 09/14/17 11:17 Consult Physician Routine Consulting Provider: Dariela Medellin Consult Reason/Comments: SOB unknown etiology Do you want consulting provider notified?: Yes Primary care physician: [facility] Course: 69-year-old admitted with the acute hypoxic respiratory failure etiology is unknown patient had a CAT scan of the chest which did not show any pulmonary embolism patient does not appear to have CHF and COPD exacerbation patient will empirically given 20 mg of IV Lasix instead of oral Lasix and see how she does pulmonary is recommending an echocardiogram to see if she has any pericardial effusion echocardiogram exam was ordered. Patient is presently and onto and half liters of oxygen as compared to 5 L yesterday 09/16/2017 Patient is significant clinical improvement with this can urine also and see how her saturations are today. Patient's Lasix dose will be increased from 20- 40 in the morning will not require any additional potassium supplementation. Patient's also on the right leg showing Morganella which is sensitive to cephalosporins patient was discharged on Ceftin for 10 days as recommended by infectious disease patient was cleared by pulmonary as well. Echocardiogram did not show any significant abnormality. There is no evidence of osteomyelitis. PHYSICAL EXAMINATION: GENERAL: The patient is alert and oriented x3, not in any acute distress. Morbidly obese HEENT: Pupils are round and equally reacting to light. EOMI. No scleral icterus. No conjunctival pallor. Normocephalic, atraumatic. No pharyngeal erythema. No thyromegaly. CARDIOVASCULAR: S1 and S2 present. No murmurs, rubs, or gallops. PULMONARY: Chest is clear to auscultation, no wheezing or crackles. ABDOMEN: Soft, nontender, nondistended, normoactive bowel sounds. No palpable organomegaly. MUSCULOSKELETAL: No joint swelling or deformity. EXTREMITIES: No cyanosis, clubbing, or pedal edema. lower limb edema which is chronic and patient has a circumferential deep stage 3-4 ulcer above the ankle area with some surrounding redness base appears to be clean NEUROLOGICAL: Gross neurological examination did not reveal any focal deficits. SKIN: No rashes. Assessment and Plan Plan: -Shortness of breath: As mentioned above etiology is unclear management as mentioned in the interval history there may be a competent of chronic diastolic dysfunction with mild exacerbation -Right lower extremity wound and possible infection along with the urinary tract infection: -Tachycardia due to hypoxemia from above-mentioned reasons. Increasing the dose of metoprolol -COPD without any significant exacerbation -type 2 diabetes mellitus patient will be resumed on home regimen -Hyperlipidemia next and heparin hypertension next and-rheumatoid arthritis -Hypothyroidism Patient Condition at Discharge: Fair Plan - Discharge Summary Discharge Rx Participant: Yes New Discharge Prescriptions: New Cefuroxime Axetil [Ceftin] 500 mg PO BID #20 tab clonazePAM [KlonoPIN] 0.5 mg PO Q12H PRN #10 tab PRN Reason: Anxiety/SEIZURES Furosemide [Lasix] 40 mg PO DAILY #30 tablet Continue sitaGLIPtin [Januvia] 100 mg PO DAILY@0800 rOPINIRole HCL [Requip] 3 mg PO HS@2100 DULoxetine HCL [Cymbalta] 30 mg PO BID@0800,1700 Rivaroxaban [Xarelto] 20 mg PO DAILY@1700 Omeprazole [PriLOSEC] 20 mg PO DAILY@0700 Allopurinol [Zyloprim] 100 mg PO DAILY@0800 Levothyroxine Sodium [Synthroid] 100 mcg PO DAILY Insulin Lispro [humaLOG Kwikpen] See Protocol SQ ACHS Atorvastatin [Lipitor] 40 mg PO DAILY@1700 Magnesium Hydroxide [Milk of Magnesia] 2,400 mg PO DAILY PRN PRN Reason: Constipation Na Phos,M-B/Na Phos,Di-Ba [Fleet Adult] 133 ml RECTAL ONCE PRN PRN Reason: Constipation Bisacodyl [Dulcolax] 10 mg RECTAL DAILY PRN PRN Reason: Constipation Pregabalin [Lyrica] 200 mg PO BID@0800,2100 Potassium Chloride ER [K-Dur 20] 20 meq PO DAILY@1700 Polyethylene Glycol 3350 [Miralax] 17 gm PO DAILY PRN PRN Reason: Constipation L.acidoph,Paracasei, B.lactis [Probiotic] 1 cap PO DAILY Glucerna Shake 1 can PO HS Ferrous Sulfate [Feosol] 325 mg PO DAILY@1700 Docusate Sodium [Dok] 200 mg PO BID@0800,1700 Cyclobenzaprine [Flexeril] 5 mg PO TID PRN PRN Reason: Muscle Spasm Cholecalciferol (Vitamin D3) [Vitamin D3] 2,000 unit PO DAILY@1700 Budesonide/Formoterol Fumarate [Symbicort 80-4.5 Mcg Inhaler] 2 puff INHALATION RT-DAILY PRN PRN Reason: Shortness Of Breath Amino Acids/Protein Hydrolys [Pro-Stat Supplement] 30 ml PO DAILY@1700 Acetaminophen Tab [Tylenol] 650 mg PO Q6H PRN PRN Reason: Pain Or Fever > 100.5 Ondansetron [Zofran] 4 mg PO Q8HR PRN PRN Reason: Nausea Albuterol Inhaler [Ventolin Hfa Inhaler] 2 puff INHALATION RT-Q4H PRN PRN Reason: Shortness Of Breath Sennosides/Docusate Sodium [Shayy Colace] 2 tab PO DAILY Insulin Lispro [humaLOG Kwikpen] 6 unit SQ TID@0700,1100,1730 Mirabegron [Myrbetriq] 50 mg PO DAILY Miconazole Nitrate [Lotrimin AF Powder] 1 applic TOPICAL BID Insulin Detemir [Levemir] 20 unit SQ HS Collagenase [Santyl] 1 applic TOPICAL DAILY Aspirin EC [Ecotrin Low Dose] 81 mg PO DAILY@1700 HYDROcodone/APAP 10-325MG [Boody 10-325] 1 tab PO Q4HR PRN #18 tab PRN Reason: Pain Changed Furosemide [Lasix] 20 mg PO HS #0 Metoprolol Tartrate [Lopressor] 25 mg PO BID@0800,1700 #0 Discontinued clonazePAM [KlonoPIN] 0.5 mg PO Q12H PRN PRN Reason: Anxiety/SEIZURES Sulfamethox-Tmp 800-160Mg [Bactrim DS 800-160 mg] 1 tab PO BID@0800,2100 Cephalexin [Keflex] 500 mg PO TID@08,14,20 Discharge Medication List sitaGLIPtin [Januvia] 100 mg PO DAILY@0800 10/09/13 [History] DULoxetine HCL [Cymbalta] 30 mg PO BID@0800,1700 11/27/15 [History] rOPINIRole HCL [Requip] 3 mg PO HS@2100 11/27/15 [History] Rivaroxaban [Xarelto] 20 mg PO DAILY@1700 05/12/16 [History] Allopurinol [Zyloprim] 100 mg PO DAILY@0800 09/20/16 [History] Levothyroxine Sodium [Synthroid] 100 mcg PO DAILY 09/20/16 [History] Omeprazole [PriLOSEC] 20 mg PO DAILY@0700 09/20/16 [History] Atorvastatin [Lipitor] 40 mg PO DAILY@17005/02/17 [History] Insulin Lispro [humaLOG Kwikpen] See Protocol SQ ACHS 05/02/17 [History] Acetaminophen Tab [Tylenol] 650 mg PO Q6H PRN 08/03/17 [History] Amino Acids/Protein Hydrolys [Pro-Stat Supplement] 30 ml PO DAILY@169908/03/17 [History] Bisacodyl [Dulcolax] 10 mg RECTAL DAILY PRN 08/03/17 [History] Budesonide/Formoterol Fumarate [Symbicort 80-4.5 Mcg Inhaler] 2 puff INHALATION RT-DAILY PRN 08/03/17 [History] Cholecalciferol (Vitamin D3) [Vitamin D3] 2,000 unit PO DAILY@169908/03/17 [ History] Cyclobenzaprine [Flexeril] 5 mg PO TID PRN 08/03/17 [History] Docusate Sodium [Dok] 200 mg PO BID@0800,1700 08/03/17 [History] Ferrous Sulfate [Feosol] 325 mg PO DAILY@169908/03/17 [History] Glucerna Shake 1 can PO HS 08/03/17 [History] L.acidoph,Paracasei, B.lactis [Probiotic] 1 cap PO DAILY 08/03/17 [History] Magnesium Hydroxide [Milk of Magnesia] 2,400 mg PO DAILY PRN 08/03/17 [History] Na Phos,M-B/Na Phos,Di-Ba [Fleet Adult] 133 ml RECTAL ONCE PRN 08/03/17 [History ] Polyethylene Glycol 3350 [Miralax] 17 gm PO DAILY PRN 08/03/17 [History] Potassium Chloride ER [K-Dur 20] 20 meq PO DAILY@1700 08/03/17 [History] Pregabalin [Lyrica] 200 mg PO BID@0800,2100 08/03/17 [History] Albuterol Inhaler [Ventolin Hfa Inhaler] 2 puff INHALATION RT-Q4H PRN 09/07/17 [ History] Insulin Lispro [humaLOG Kwikpen] 6 unit SQ TID@0700,1100,1730 09/07/17 [History] Mirabegron [Myrbetriq] 50 mg PO DAILY 09/07/17 [History] Ondansetron [Zofran] 4 mg PO Q8HR PRN 09/07/17 [History] Sennosides/Docusate Sodium [Shayy Colace] 2 tab PO DAILY 09/07/17 [History] Aspirin EC [Ecotrin Low Dose] 81 mg PO DAILY@1700 09/13/17 [History] Collagenase [Santyl] 1 applic TOPICAL DAILY 09/13/17 [History] Insulin Detemir [Levemir] 20 unit SQ HS 09/13/17 [History] Miconazole Nitrate [Lotrimin AF Powder] 1 applic TOPICAL BID 09/13/17 [History] Cefuroxime Axetil [Ceftin] 500 mg PO BID #20 tab 09/16/17 [Rx] Furosemide [Lasix] 20 mg PO HS #0 09/16/17 [Rx] Furosemide [Lasix] 40 mg PO DAILY #30 tablet 09/16/17 [Rx] HYDROcodone/APAP 10-325MG [Boody 10-325] 1 tab PO Q4HR PRN #18 tab 09/16/17 [Rx] Metoprolol Tartrate [Lopressor] 25 mg PO BID@0800,1700 #0 09/16/17 [Rx] clonazePAM [KlonoPIN] 0.5 mg PO Q12H PRN #10 tab 09/16/17 [Rx] Follow up Appointment(s)/Referral(s): Patric Richard MD [Primary Care Provider] - 1-2 days Discharge Disposition: TRANSFER TO SNF/F
--- NOTE | 2017-09-16 14:32 | P.PN ---
Subjective Progress Note Date: 09/16/17 Principal diagnosis: Acute hypoxic respiratory failure secondary to suspected fluid volume overload. Consult dated 09/14/2017 This is a 72-year-old female well-known to us. She apparently presented to the emergency room with complaints of shortness of breath and possible infection in her right leg. She has a history of a recent fracture and subsequent repair and in the development of a slowly healing ulcer to the right leg the patient apparently sees Dr. Patric Richard is a family doctor and also sees my partner for her lungs. She apparently has a history of underlying COPD from previous tobacco use. She quit many years back but does smoke about 25 years at a pack a day. She doesn't look ill my opinion. She is wearing nasal oxygen. She apparently does not were oxygen on a regular basis. The patient has been an out -of-hospital recently in the prior to this visit [facility] in the ICU for a couple days. She was seen by our team at that time. She has history of multiple medical problems including COPD diabetes DVT hyperlipidemia hypertension pneumonia pulmonary embolism rheumatoid arthritis hypothyroidism and multiple surgical procedures. The patient is seen today 09/15/2017 in follow-up on the selective care unit. She is awake and alert in no acute distress. She denies any worsening shortness of breath, cough or congestion. No chest pain or palpitations. Blood , wound urine cultures revealed no growth to date. She's been afebrile. Slightly tachycardic. Maintain O2 saturations in the 90s on 3 and half liters per minute per nasal cannula. Blood pressure stable. The patient is seen again today 09/16/2017 in follow-up on the selective care unit. She is currently sitting up in bed. She is awake and alert in no acute distress. She continues to deny any shortness of breath, cough or congestion. No chills or night sweats. She is down to 2 L/m per nasal cannula to maintain O2 saturations in the 90s. She has been diuresed. Blood, wound, urine cultures reveal no growth to date. No leukocytosis. Afebrile. Hemodynamically stable. Objective - Vital Signs Vital signs: Vital Signs Temp 96.9 F L 09/16/17 11:54 Pulse 108 H 09/16/17 11:54 Resp 18 09/16/17 11:54 BP 122/85 09/16/17 11:54 Pulse Ox 97 09/16/17 11:54 Intake & Output 09/15/17 09/16/17 09/16/17 18:59 06:59 18:59 Intake Total 500 598 Output Total 1300 Balance -800 598 Weight 111.1 kg Intake: Oral 500 598 Output: Urine 1300 Other: Voiding Method Bedpan Bedpan Bedside Commode Diaper Diaper # Voids 2 - Exam GENERAL EXAM: Morbidly obese. Alert, comfortable in no apparent distress. HEAD: Normocephalic. EYES: Normal reaction of pupils, equal size. NOSE: Clear with pink turbinates. THROAT: No erythema or exudates. NECK: No masses, no JVD. CHEST: No chest wall deformity. LUNGS: Equal air entry with no crackles, rhonchi or wheeze. CVS: S1 and S2 normal with no audible murmur, regular rhythm. ABDOMEN: Obese, normal bowel sounds, no guarding or rigidity. SPINE: No scoliosis or deformity SKIN: No rashes CENTRAL NERVOUS SYSTEM: No focal deficits, tone is normal in all 4 extremities. EXTREMITIES: There is peripheral edema. The dressing to the right lateral lower extremity dry and intact. No clubbing, no cyanosis. Peripheral pulses are intact. - Labs CBC & Chem 7: 09/16/17 06:34 09/16/17 06:34 Labs: Abnormal Lab Results - Last 24 Hours (Table) 09/15/17 09/15/17 09/16/17 Range/Units 16:30 20:36 06:34 RDW 24.0 H (11.5-15.5) % BUN (7-17) mg/dL Glucose (74-99) mg/dL POC Glucose (mg/dL) 200 H 227 H (75-99) mg/dL Calcium (8.4-10.2) mg/dL 09/16/17 09/16/17 09/16/17 Range/Units 06:34 06:36 11:30 RDW (11.5-15.5) % BUN 26 H (7-17) mg/dL Glucose 142 H (74-99) mg/dL POC Glucose (mg/dL) 128 H 218 H (75-99) mg/dL Calcium 10.4 H (8.4-10.2) mg/dL Microbiology - Last 24 Hours (Table) 09/13/17 18:30 Blood Culture - Preliminary Blood No Growth after 48 hours 09/14/17 18:35 Urine Culture - Final Urine,Voided Assessment and Plan Assessment: Assessment Shortness of breath and low saturations, of unclear etiology. A couple diagnostic possibilities exist including COPD exacerbation although her lungs are clear and don't exhibit any wheezes, recurrent pulmonary embolism, not very likely given the fact the patient is on a factor X a inhibitor, and heart failure, not likely because of patient's chest x-ray looks relatively normal and her N-terminal proBNP was not particularly high. History of COPD from previous tobacco use Diabetes mellitus History of DVT and pulmonary embolism Extremities rheumatoid arthritis Hypertension by history Hyperlipidemia by history Hypothyroidism Recent fracture of the right leg with surgical repair and subsequent slowly healing ulcer to the right mid leg Multiple other surgical procedures as listed in her H&P. Plan: The patient is seen and evaluated by Dr. Elliott. She remains stable from the pulmonary standpoint and could be transferred back to the [facility] for further inpatient rehabilitation. Continue oxygen as needed. Continue DuoNeb inhalations 4 times a day and when necessary and Symbicort. She remains anticoagulated with Xarelto. Follow-up in our office in the next 1-2 weeks if possible. Encouraged to call sooner with any pulmonary complaints. I, the cosigning physician, performed a history & physical examination of the patient. Lungs sounds are clear. Maintaining good O2 saturations in the 90s on 2 L/m per nasal cannula. I discussed the assessment and plan of care with my nurse practitioner, Ayana Nova. I attest to the above note as dictated by her.
[2017-09-16] MEDS: RIVAROXABAN 20 MG TAB PO SCH (16:28)
[2017-09-16] MEDS: FERROUS SULFATE 325 MG TAB PO SCH (16:28)
[2017-09-16] MEDS: ASPIRIN 81 MG PO SCH (16:28)
[2017-09-16] MEDS: ATORVASTATIN 40 MG TAB PO SCH (16:28)
[2017-09-16] MEDS: POTASSIUM CHLORIDE ER 20 MEQ TAB.ER PO SCH (16:28)
[2017-09-16 16:46] LABS: Glucose,Whole Blood 134 mg/dL (75-99)
--- NOTE | 2017-09-16 16:50 | PN ---
PROGRESS NOTE DATE OF SERVICE: 09/16/2017. REASON FOR FOLLOWUP: Right leg wound and cellulitis. INTERVAL HISTORY: The patient is afebrile. She is breathing more comfortably. Denies having any chest pain, shortness of breath, cough. No abdominal pain. No pain in the right leg area and no redness. EXAMINATION: Blood pressure 122/85 with a pulse of 110, temperature of 96.9. She is 97% on 2 L nasal cannula. General description is an elderly female up in the bed in no distress. Respiratory system: Unlabored breathing with decreased breath sounds in the bases. No wheeze. Heart S1, S2. Regular rate and rhythm. Abdomen soft, no tenderness. Right leg wound is currently dressed. Surrounding redness resolved. Minimal swelling. LABS: Hemoglobin 14.2, white count 8.2 with a BUN of 26, creatinine 0.81. Wound culture this admission has been negative. Prior to admission was a Morganella sensitive to ceftriaxone. DIAGNOSTIC IMPRESSION AND PLAN: Patient with right leg wound with secondary cellulitis. The patient currently with no redness in the leg. Recommend finishing therapy with oral Bactrim DS 1 b.i.d. for about a week and continue local wound care with the Santyl followed by moist dressing until the patient is evaluated in the outpatient setting by her surgeon. Continue supportive care. MMODL / IJN: [id number] /
[2017-09-16 20:57] LABS: Glucose,Whole Blood 182 mg/dL (75-99)
[2017-09-16] MEDS: INSULIN DETEMIR 100 UNIT/ML 10 ML VIAL SQ SCH (21:19)
[2017-09-17] MEDS: HYDROcodone/APAP 10-325MG 1 EACH TAB PO PRN ×4 (05:31→21:31)
[2017-09-17 06:08] LABS: Glucose,Whole Blood 156 mg/dL (75-99)
[2017-09-17 06:39] LABS: Anisocytosis Marked; Basophils % (A) 0 %; Eosinophils # (A) 0.3 k/uL (0-0.7); Eosinophils % (A) 4 %; HCT 47.8 % (34.0-46.0); HGB 14.3 gm/dL (11.4-16.0); Hypochromasia Marked; Lymphocytes # (A) 2.7 k/uL (1.0-4.8); Lymphocytes % (A) 35 %; MCH 27.8 pg (25.0-35.0); MCHC 29.9 g/dL (31.0-37.0); MCV 92.9 fL (80.0-100.0); Macrocytosis Slight; Mean Platelet Volume 8.3; Microcytosis Slight; Monocytes # (A) 0.8 k/uL (0-1.0); Monocytes % (A) 10 %; Neutrophils # (A) 3.6 k/uL (1.3-7.7); Neutrophils % (A) 47 %; Platelet Count 355 k/uL (150-450); RBC 5.15 m/uL (3.80-5.40); RDW 24.4 % (11.5-15.5); WBC 7.7 k/uL (3.8-10.6)
[2017-09-17] MEDS: PANTOPRAZOLE 40 MG TABLET PO SCH (06:51)
[2017-09-17] MEDS: LEVOTHYROXINE 100 MCG TAB PO SCH (06:51)
[2017-09-17] MEDS: INSULIN ASPART 100 UNIT/ML 1 ML 10 ML VIAL SQ SCH ×9 (07:03→23:20)
[2017-09-17] MEDS: IPRATROPIUM-ALBUTEROL 3 ML NEB INHALATION SCH ×4 (07:56→19:19)
[2017-09-17] MEDS: FUROSEMIDE 10 MG/ML 2 ML VIAL IV SCH ×2 (08:30→17:43)
[2017-09-17] MEDS: SENNOSIDES-DOCUSATE SODIUM 1 EACH TAB PO SCH (08:30)
[2017-09-17] MEDS: METOPROLOL TARTRATE 12.5 MG TAB PO SCH (08:30)
[2017-09-17] MEDS: CEFEPIME 2 GM in SODIUM CHLORIDE 0.9% 50 ML IVPB SCH ×2 (08:30→21:19)
[2017-09-17] MEDS: ALLOPURINOL 100 MG TAB PO SCH (08:30)
[2017-09-17] MEDS: LINAGLIPTIN 5 MG TABLET PO SCH (08:30)
[2017-09-17] MEDS: DOCUSATE 100 MG CAP PO SCH ×2 (08:30→16:29)
[2017-09-17] MEDS: DULoxetine HCL 30 MG CAPSULE.DR PO SCH ×2 (08:30→16:29)
[2017-09-17] MEDS: PREGABALIN 100 MG CAP PO SCH ×2 (08:34→21:19)
[2017-09-17] MEDS: NYSTATIN 100,000 UNIT/GM POWD 15 GM TOPICAL SCH ×2 (08:49→21:18)
[2017-09-17] MEDS: COLLAGENASE 250 UNIT/GM OINTMENT 30 GM TUBE TOPICAL SCH (08:49)
[2017-09-17] MEDS ORDERED: FUROSEMIDE 10 MG/ML 2 ML VIAL IV SCH (10:40)
--- NOTE | 2017-09-17 11:18 | P.PN ---
Subjective 69-year-old admitted with the acute hypoxic respiratory failure etiology is unknown patient had a CAT scan of the chest which did not show any pulmonary embolism patient does not appear to have CHF and COPD exacerbation patient will empirically given 20 mg of IV Lasix instead of oral Lasix and see how she does pulmonary is recommending an echocardiogram to see if she has any pericardial effusion echocardiogram exam was ordered. Patient is presently and onto and half liters of oxygen as compared to 5 L yesterday 09/16/2017 Patient is significant clinical improvement with this can urine also and see how her saturations are today. Patient's Lasix dose will be increased from 20- 40 in the morning will not require any additional potassium supplementation. Patient's also on the right leg showing Morganella which is sensitive to cephalosporins patient was discharged on Ceftin for 10 days as recommended by infectious disease patient was cleared by pulmonary as well. Echocardiogram did not show any significant abnormality. There is no evidence of osteomyelitis. 09/17/2017 No overnight events patient is clinically doing well not on oxygen any more. Patient is awaiting to return to subacute rehabilitation and insurance authorization Constitutional: Denied any fatigue denied any fever. Cardio vascular: denied any chest pain, palpitations Gastrointestinal denied any nausea vomiting Pulmonary: Denied any shortness of breath cough Neurologic denied any new focal deficits Objective - Vital Signs Vital signs: Vital Signs Temp 98.3 F 09/17/17 08:00 Pulse 95 09/17/17 08:08 Resp 20 09/17/17 08:00 BP 116/73 09/17/17 08:00 Pulse Ox 92 L 09/17/17 08:00 Intake & Output 09/16/17 09/17/17 09/17/17 18:59 06:59 18:59 Intake Total 1188 240 Balance 1188 240 Weight 109.8 kg Intake: Intake, IV Titration 50 Amount Cefepime 2 gm In Sodium 50 Chloride 0.9% 50 ml @ 100 mls/hr IVPB Q12HR [facility] Rx #:[id number] Oral 1138 240 Other: Voiding Method Bedside Commode Bedside Commode # Voids 3 1 - Exam PHYSICAL EXAMINATION: GENERAL: The patient is alert and oriented x3, not in any acute distress. Well developed, well nourished. HEENT: Pupils are round and equally reacting to light. EOMI. No scleral icterus. No conjunctival pallor. Normocephalic, atraumatic. No pharyngeal erythema. No thyromegaly. CARDIOVASCULAR: S1 and S2 present. No murmurs, rubs, or gallops. PULMONARY: Chest is clear to auscultation, no wheezing or crackles. ABDOMEN: Soft, nontender, nondistended, normoactive bowel sounds. No palpable organomegaly. MUSCULOSKELETAL: No joint swelling or deformity. EXTREMITIES: No cyanosis, clubbing, but at a lower limb edema which is chronic and patient has a circumferential deep stage 3-4 ulcer above the ankle area with some surrounding redness base appears to be clean NEUROLOGICAL: Gross neurological examination did not reveal any focal deficits. SKIN: No rashes. - Labs CBC & Chem 7: 09/17/17 06:22 09/16/17 06:34 Labs: Abnormal Lab Results - Last 24 Hours (Table) 09/16/17 09/16/17 09/16/17 Range/Units 11:30 16:44 20:55 Hct (34.0-46.0) % MCHC (31.0-37.0) g/dL RDW (11.5-15.5) % POC Glucose (mg/dL) 218 H 134 H 182 H (75-99) mg/dL 09/17/17 09/17/17 Range/Units 06:03 06:22 Hct 47.8 H (34.0-46.0) % MCHC 29.9 L (31.0-37.0) g/dL RDW 24.4 H (11.5-15.5) % POC Glucose (mg/dL) 156 H (75-99) mg/dL Microbiology - Last 24 Hours (Table) 09/14/17 08:40 Gram Stain - Final Leg - Right Wound Culture - Final 09/13/17 18:30 Blood Culture - Preliminary Blood No Growth after 72 hours Assessment and Plan Plan: -Shortness of breath: As mentioned above etiology is unclear management as mentioned in the interval history. Patient is presently being continued on Lasix of the etiology is not clear as mentioned in in full history -Right lower extremity wound and possible infection along with the urinary tract infection: Consulted infectious disease and patient was started on cefepime -Tachycardia due to hypoxemia from above-mentioned reasons. -COPD without any significant exacerbation -type 2 diabetes mellitus patient will be resumed on home regimen since we discontinued the steroids I'm hoping her blood sugars will be better controlled , there elevated now. -Hyperlipidemia next and heparin hypertension next and-rheumatoid arthritis -Hypothyroidism Promotion chronic medical problems patient will be resumed and continued on appropriate home medications.
[2017-09-17 11:59] LABS: Glucose,Whole Blood 161 mg/dL (75-99)
--- NOTE | 2017-09-17 12:19 | P.PN ---
Subjective Progress Note Date: 09/17/17 Principal diagnosis: Difficulty breathing Progress note dated 09/17/2017 72-year-old female with history of hypoxemia. The patient was admitted with a diagnosis of mild COPD exacerbation. And also had some mild heart failure. Breathing has improved though. She was able be transferred out from the sixth floor to the fifth floor in his voiding discharged tomorrow morning to [facility]. She's been there for quite some time. In addition, she has a history of COPD diabetes DVT with previous history of pulmonary embolism rheumatoid arthritis hypertension hyperlipidemia hypothyroidism and recent fracture of the right leg with a slowly resolving leg ulcer and multiple other surgical procedures. Her CT angiogram was negative for recurrent PE. She has been weaned down to 2 L. She was on room air at the custodial. The patient has no particular complaints today. Does have some pain of her right foot when she puts weight on her right foot and toe. Objective - Vital Signs Vital signs: Vital Signs Temp 98.3 F 09/17/17 08:00 Pulse 98 09/17/17 11:56 Resp 20 09/17/17 08:00 BP 116/73 09/17/17 08:00 Pulse Ox 92 L 09/17/17 08:00 Intake & Output 09/16/17 09/17/17 09/17/17 18:59 06:59 18:59 Intake Total 1188 240 Balance 1188 240 Weight 109.8 kg Intake: Intake, IV Titration 50 Amount Cefepime 2 gm In Sodium 50 Chloride 0.9% 50 ml @ 100 mls/hr IVPB Q12HR REPLACED BY [facility] Rx #:[id number] Oral 1138 240 Other: Voiding Method Bedside Commode Bedside Commode # Voids 3 1 - Exam No acute distress, oriented 3. HEENT examination is grossly unremarkable. Mucous membranes are moist. No oral lesions. Neck supple. Full range of motion. No adenopathy thyromegaly or neck vein distention. Cardiovascular examination reveals regular rhythm rate. S1-S2 normal. No S3 or S4. No discernible murmur noted. Lungs reveal clear breath sounds. Her sounds are equal bilaterally. No adventitious lung sounds including wheezes rhonchi or crackles. Abdomen soft bowel sounds are heard. No masses or tenderness. Extremities are intact. No cyanosis clubbing or edema. Small slowly healing ulcer on the anterior surface of the right mid leg Skin is without rash or lesion. Neurologic examination is brief but nonfocal. - Labs CBC & Chem 7: 09/17/17 06:22 09/16/17 06:34 Labs: Abnormal Lab Results - Last 24 Hours (Table) 09/16/17 09/16/17 09/17/17 Range/Units 16:44 20:55 06:03 Hct (34.0-46.0) % MCHC (31.0-37.0) g/dL RDW (11.5-15.5) % POC Glucose (mg/dL) 134 H 182 H 156 H (75-99) mg/dL 09/17/17 09/17/17 Range/Units 06:22 11:46 Hct 47.8 H (34.0-46.0) % MCHC 29.9 L (31.0-37.0) g/dL RDW 24.4 H (11.5-15.5) % POC Glucose (mg/dL) 161 H (75-99) mg/dL Microbiology - Last 24 Hours (Table) 09/14/17 08:40 Gram Stain - Final Leg - Right Wound Culture - Final 09/13/17 18:30 Blood Culture - Preliminary Blood No Growth after 72 hours Assessment and Plan Assessment: Assessment Shortness of breath and low saturations, of unclear etiology. A couple diagnostic possibilities exist including COPD exacerbation although her lungs are clear and don't exhibit any wheezes, recurrent pulmonary embolism, not very likely given the fact the patient is on a factor X a inhibitor and CT angiogram is negative for PE, and heart failure, not likely because of patient's chest x- ray looks relatively normal and her N-terminal proBNP was not particularly high. History of COPD from previous tobacco use Diabetes mellitus History of DVT and pulmonary embolism History of rheumatoid arthritis Hypertension by history Hyperlipidemia by history Hypothyroidism Recent fracture of the right leg with surgical repair and subsequent slowly healing ulcer to the right mid leg Multiple other surgical procedures as listed in her H&P. Plan: Plan dated 09/14/2017 The patient did have a CT angiogram ordered. We will look at [facility] but the official report is currently pending. Chest x-ray suggested a possible pericardial effusion so echocardiogram should be done. This might be an alternative explanation for the patient shortness of breath. In addition, labs x-rays a medications are reviewed. We'll make sure that she is on her usual COPD medications. Does not appear that she needs steroids at this time. She does not appear to be infected from the pulmonary standpoint at this time. She was seen by one of the [facility] doctors today. Additional recommendations and suggestions are forthcoming. Plan dated 09/17/2017 The patient was transferred down to the fifth floor. She's doing well. She is not acutely short of breath. The patient will be transferred back to [facility] tomorrow morning. No additional recommendations are made. Labs x- rays and medications are reviewed. We'll continue to follow. Time with Patient: Less than 30
[2017-09-17] MEDS: POTASSIUM CHLORIDE ER 20 MEQ TAB.ER PO SCH (16:29)
[2017-09-17] MEDS: METOPROLOL TARTRATE 25 MG TAB PO SCH (16:29)
[2017-09-17] MEDS: FERROUS SULFATE 325 MG TAB PO SCH (16:29)
[2017-09-17] MEDS: ASPIRIN 81 MG PO SCH (16:29)
[2017-09-17] MEDS: ATORVASTATIN 40 MG TAB PO SCH (16:29)
[2017-09-17] MEDS: RIVAROXABAN 20 MG TAB PO SCH (16:29)
[2017-09-17 17:16] LABS: Glucose,Whole Blood 139 mg/dL (75-99)
[2017-09-17] MEDS: SYMBICORT 80-4.5 MCG INHALER INHALATION PRN (19:23)
[2017-09-17 20:01] LABS: Glucose,Whole Blood 180 mg/dL (75-99)
--- NOTE | 2017-09-17 20:54 | PN ---
PROGRESS NOTE DATE OF SERVICE: 09/17/2017. REASON FOR FOLLOWUP: Right lower extremity wound and cellulitis. INTERVAL HISTORY: The patient is afebrile. She is breathing comfortably. Denies having any chest pain, shortness of breath, cough or abdominal pain. Only pain in the right leg area. EXAMINATION: Blood pressure is 141/74 with a pulse of 100, temperature 97.4. She is 94% on room air. General description is an elderly female, lying in bed in no distress. Respiratory system: Unlabored breathing. Decreased intensity of breath sounds. No wheeze. Heart S1, S2. Regular rate and rhythm. Abdomen soft, no tenderness. Right leg with some swelling but no redness. LAB: White count of 7.7. DIAGNOSTIC IMPRESSION AND PLAN: Patient with right lower extremity wound and secondary cellulitis. Previous culture positive for Morganella morganii, which was resistant to . Currently on cefepime. Recommend to finish therapy with oral Bactrim DS. Local wound care to continue with Santyl. Continue supportive care. MMBUBBAL / LINN: [id number] /
[2017-09-17] MEDS: INSULIN DETEMIR 100 UNIT/ML 10 ML VIAL SQ SCH (23:46)
[2017-09-18] MEDS: LEVOTHYROXINE 100 MCG TAB PO SCH (06:15)
[2017-09-18 07:37] LABS: Glucose,Whole Blood 166 mg/dL (75-99)
[2017-09-18] MEDS: INSULIN ASPART 100 UNIT/ML 1 ML 10 ML VIAL SQ SCH ×4 (07:43→12:36)
[2017-09-18] MEDS: ALLOPURINOL 100 MG TAB PO SCH (07:44)
[2017-09-18] MEDS: PANTOPRAZOLE 40 MG TABLET PO SCH (07:44)
[2017-09-18] MEDS: DOCUSATE 100 MG CAP PO SCH (07:44)
[2017-09-18] MEDS: DULoxetine HCL 30 MG CAPSULE.DR PO SCH (07:44)
[2017-09-18] MEDS: LINAGLIPTIN 5 MG TABLET PO SCH (07:45)
[2017-09-18] MEDS: METOPROLOL TARTRATE 25 MG TAB PO SCH (07:45)
[2017-09-18] MEDS: HYDROcodone/APAP 10-325MG 1 EACH TAB PO PRN ×2 (07:50→11:37)
[2017-09-18] MEDS: PREGABALIN 100 MG CAP PO SCH (07:50)
[2017-09-18] MEDS: IPRATROPIUM-ALBUTEROL 3 ML NEB INHALATION SCH ×3 (08:05→15:31)
[2017-09-18] MEDS: SYMBICORT 80-4.5 MCG INHALER INHALATION PRN (08:05)
[2017-09-18 08:06] VITALS: BP 119/105; RESP 18; TEMP 98.5
[2017-09-18 08:11] LABS: Calcium 10.7 mg/dL (8.4-10.2); Potassium 4.8 mmol/L (3.5-5.1)
[2017-09-18] MEDS: SENNOSIDES-DOCUSATE SODIUM 1 EACH TAB PO SCH (08:41)
[2017-09-18] MEDS: CEFEPIME 2 GM in SODIUM CHLORIDE 0.9% 50 ML IVPB SCH (08:41)
[2017-09-18] MEDS: FUROSEMIDE 10 MG/ML 2 ML VIAL IV SCH (08:42)
[2017-09-18] MEDS: NYSTATIN 100,000 UNIT/GM POWD 15 GM TOPICAL SCH (11:16)
[2017-09-18] MEDS: COLLAGENASE 250 UNIT/GM OINTMENT 30 GM TUBE TOPICAL SCH (11:16)
[2017-09-18 11:30] LABS: Glucose,Whole Blood 269 mg/dL (75-99)
[2017-09-18 12:29] VITALS: PULSE 94
--- NOTE | 2017-09-18 16:09 | P.PN ---
Subjective Progress Note Date: 09/18/17 Principal diagnosis: Dyspnea, of unclear etiology, patient responded to empiric dose of IV Lasix, though there was no evidence of overt heart failure 72-year-old female with history of hypoxemia. The patient was admitted with a diagnosis of mild COPD exacerbation. And also had some mild heart failure. Breathing has improved though. She was able be transferred out from the sixth floor to the fifth floor in his voiding discharged tomorrow morning to [facility]. She's been there for quite some time. In addition, she has a history of COPD diabetes DVT with previous history of pulmonary embolism rheumatoid arthritis hypertension hyperlipidemia hypothyroidism and recent fracture of the right leg with a slowly resolving leg ulcer and multiple other surgical procedures. Her CT angiogram was negative for recurrent PE. She has been weaned down to 2 L. She was on room air at the senior living. The patient has no particular complaints today. Does have some pain of her right foot when she puts weight on her right foot and toe. 09/18/2017 patient is seen in follow-up on oncology floor. She denies any dyspnea, denies any fever or chills, patient responded to a dose of IV Lasix. Lung sounds are clear, she is on room air, her IV Lasix will be switched to oral Lasix 40 mg once daily. Today's labs were reviewed, electrolytes were within normal limits, B1 is 27, creatinine 0.81. Patient does not have any evidence of COPD exacerbation, echocardiogram showed the left ventricular systolic function within normal limits with EF between 55-60%, mild aortic stenosis, trace mitral and tricuspid regurgitation, no evidence of pulmonary hypertension, with right ventricular systolic pressure of 33.9 mmHg. Patient dyspnea has responded to a dose of IV Lasix. Remains on cefepime for right lower lobe extremity cellulitis, local wound care with Santyl. No other acute complaints. Anticipate discharge to subacute rehab today. No further recommendations from pulmonary standpoint Objective - Vital Signs Vital signs: Vital Signs Temp 98.5 F 09/18/17 07:10 Pulse 94 09/18/17 12:20 Resp 18 09/18/17 08:00 BP 119/105 09/18/17 07:10 Pulse Ox 90 L 09/18/17 07:10 Intake & Output 09/17/17 09/18/17 09/18/17 18:59 06:59 18:59 Intake Total 240 0 1290 Output Total 400 Balance -160 0 1290 Weight 103.5 kg Intake: Intake, IV Titration 0 50 Amount Cefepime 2 gm In Sodium 0 50 Chloride 0.9% 50 ml @ 100 mls/hr IVPB Q12HR [facility] Rx #:[id number] Oral 240 1240 Output: Urine 400 Other: Voiding Method Bedside Commode Bedside Commode Bedside Commode # Voids 2 2 1 # Bowel Movements 1 - Exam No acute distress, oriented 3. HEENT examination is grossly unremarkable. Mucous membranes are moist. No oral lesions. Neck supple. Full range of motion. No adenopathy thyromegaly or neck vein distention. Cardiovascular examination reveals regular rhythm rate. S1-S2 normal. No S3 or S4. No discernible murmur noted. Lungs reveal clear breath sounds. Her sounds are equal bilaterally. No adventitious lung sounds including wheezes rhonchi or crackles. Abdomen soft bowel sounds are heard. No masses or tenderness. Extremities are intact. No cyanosis clubbing or edema. Small slowly healing ulcer on the anterior surface of the right mid leg Skin is without rash or lesion. Neurologic examination is brief but nonfocal. - Labs CBC & Chem 7: 09/17/17 06:22 09/18/17 07:14 Labs: Abnormal Lab Results - Last 24 Hours (Table) 09/17/17 09/17/17 09/18/17 Range/Units 16:54 19:59 07:14 BUN 27 H (7-17) mg/dL Glucose 185 H (74-99) mg/dL POC Glucose (mg/dL) 139 H 180 H (75-99) mg/dL Calcium 10.7 H (8.4-10.2) mg/dL 09/18/17 09/18/17 Range/Units 07:14 11:29 BUN (7-17) mg/dL Glucose (74-99) mg/dL POC Glucose (mg/dL) 166 H 269 H (75-99) mg/dL Calcium (8.4-10.2) mg/dL Microbiology - Last 24 Hours (Table) 09/13/17 18:30 Blood Culture - Preliminary Blood No Growth after 96 hours Assessment and Plan Plan: Assessment: Shortness of breath and low saturations, of unclear etiology. A couple diagnostic possibilities exist including COPD exacerbation although her lungs are clear and don't exhibit any wheezes, recurrent pulmonary embolism, not very likely given the fact the patient is on a factor X a inhibitor and CT angiogram is negative for PE, and heart failure, not likely because of patient's chest x- ray looks relatively normal and her N-terminal proBNP was not particularly high. History of COPD from previous tobacco use Diabetes mellitus History of DVT and pulmonary embolism History of rheumatoid arthritis Hypertension by history Hyperlipidemia by history Hypothyroidism Recent fracture of the right leg with surgical repair and subsequent slowly healing ulcer to the right mid leg Multiple other surgical procedures as listed in her H&P. Plan: Patient is stable, denies any dyspnea, febrile, no acute pulmonary complaints. No fever, no chills, no chest congestion. No wheezing noted. Responded to a dose of IV Lasix, though there were no evidence of overt heart failure, echocardiogram showed preserved left ventricular systolic function with EF of 55 -60%, no evidence of pulmonary hypertension. From pulmonary standpoint she is stable for discharge back to the subacute rehab today antibiotics per ID service. Continue with maintenance inhalers and nebulized treatments I performed a history & physical examination of the patient and discussed their management with my nurse practitioner, Adeline Villalobos. I reviewed the nurse practitioner's note and agree with the documented findings and plan of care. Lung sounds are positive for clear breath sounds. The findings and the impression was discussed with the patient. I attest to the documentation by the nurse practitioner. Time with Patient: Less than 30
--- NOTE | 2017-09-18 17:25 | PN ---
PROGRESS NOTE DATE OF SERVICE: 09/18/2017. REASON FOR FOLLOWUP: Right leg wound with secondary cellulitis. INTERVAL HISTORY: The patient is afebrile. She is currently breathing comfortably. Denies any chest pain, shortness of breath or cough. Left leg redness is wound with no drainage. EXAMINATION: Her blood pressure is 119/100 with a pulse of 105, temperature 98.5. 90% on room air. General description is an elderly female up in the bed in no distress. Respiratory system: Unlabored breathing. Decreased breath sounds in the base. No wheeze. Heart S1, S2. Regular rate and rhythm. Abdomen soft, no tenderness. The right leg redness has completely wound with minimal soft tissue. No drainage. LABS: BUN of 27, creatinine 0.8. Wound culture done here has been negative. DIAGNOSTIC IMPRESSION AND PLAN: Patient with a right leg wound and cellulitis. Culture positive for Morganella to finish therapy with oral Bactrim DS for about a week. Local wound care to continue with Santyl. MMBUBBAL / IJN: [id number] /
--- NOTE | 2017-09-18 17:40 | DS ---
DISCHARGE SUMMARY DATE OF ADMISSION: September 13, 2017. DATE OF DISCHARGE: September 18, 2017. FINAL DIAGNOSES: 1. Possible acute chronic obstructive pulmonary disease exacerbation. 2. Acute right lower extremity wound with cellulitis. 3. Diabetes mellitus type 2, chronically on insulin. 4. Morbid obesity BMI greater than 40. 5. Hyperlipidemia. 6. Essential hypertension. 7. Rheumatoid arthritis. 8. Hypothyroid. 9. Chronic gait dysfunction, using a walker and a wheelchair. 10.Depression, not otherwise specified. 11.Hypothyroid. HOSPITAL COURSE: This patient presented with a wound on the right lower extremity and shortness of breath. PE was ruled out. The patient it is possible could have had a COPD exacerbation. Doing better. Initially did receive IV antibiotics and then switched to Bactrim DS. The patient's cultures all were negative. Today care was discussed with the patient at the bedside. Questions were answered. PHYSICAL EXAMINATION: On exam lungs fair entry. Dressing of the right lower extremity wound. DISCHARGE MEDICATIONS: 1. Januvia 100 mg p.o. daily. 2. Cymbalta 30 mg p.o. b.i.d. 3. Requip 3 mg p.o. q.h.s. 4. Xarelto 20 mg p.o. daily. 5. Allopurinol 100 mg p.o. daily. 6. Synthroid 100 mcg p.o. daily. 7. Prilosec 20 mg p.o. daily. 8. Lipitor 40 mg p.o. daily. 9. Lispro per protocol. 10.Tylenol 650 mg q.6h p.r.n. 11.ProStat supplement 30 mL p.o. daily. 12.Dulcolax 10 mg rectal daily p.r.n. 13.Symbicort 80/4.5 two puffs daily. 14.Vitamin D3 2000 units p.o. daily. 15.Flexeril 5 mg p.o. t.i.d. p.r.n. 16.Iron 325 p.o. daily. 17.Glucerna shake 1 can p.o. q.h.s. 18.Probiotic 1 capsule p.o. daily. 19.Milk of magnesia 2400 mg p.o. daily p.r.n. 20.Adult Fleet 133 mL rectal daily once p.r.n. 21.MiraLAX 17 g p.o. daily. 22.K Dur 20 mEq p.o. daily. 23.Lyrica 200 mg p.o. b.i.d. 24.Ventolin HFA 2 puffs q.4h p.r.n. 25.Insulin lispro 6 units subcu t.i.d. 26.Myrbetriq 50 mg p.o. daily. 27.Zofran 4 mg q.8h p.r.n. 28.Shayy-Colace 2 tablets p.o. daily. 29.Aspirin 81 mg p.o. daily. 30.Santyl topical daily. 31.Levemir 20 units subcu q.h.s. 32.Lotrimin AF topical b.i.d. 33.Lasix 40 mg a day. 34.Lopressor 25 p.o. b.i.d. 35.Bactrim DS 1 tablet p.o. q.12 total of 20 tablets. 36.[place] 10 1 tab q.4h p.r.n. pain. 37.Lopressor 25 p.o. b.i.d. 38.Klonopin 0.5 p.o. b.i.d. p.r.n. for anxiety. DISPOSITION: Vickie. Follow up with Dr. Neville on September 19, 2017. Follow up with Dr. Richard on as-needed after discharge from [facility]. Wound care to continue. Follow up with Dr. Ramos. Discussion and discharge planning more than [address] Richard. MMBUBBAL / LINN: [id number] /
--- NOTE | 2017-09-20 09:28 | CDI ---
Last Revision, May 2017 Documentation Clarification Form Date: 09/20/17 From: Angie Yeboah Phone: If you have a question regarding this query, please contact Isaura Gauthier at [phone] between 8am and 5pm Admit Date: 09/13/2017 8:16:00 PM Patient Name: Tia Alonso Visit Number: [id number] Discharge Date: 09/19/15 ATTENTION: The Clinical Documentation Specialists (CDI) and [facility] Coding Staff appreciate your assistance in clarifying documentation. Please respond to the clarification below the line at the bottom and electronically sign. The CDI & [facility] Coding staff will review the response and follow-up if needed. Please note: Queries are made part of the Legal Health Record. If you have any questions, please contact the author of this message via ITS. Dr. Juan Macias The patient has diabetes, as indicated in the H&P, discharge summary and progress notes. History of diabetes and peripheral vascular disease is documented in Adriana Sanchez'/Dr. Church's consult note. Right leg wound with secondary cellulitis is documented throughout the chart. History/Risk Factors: Morbid obeisty, diabetes mellitius and hypertension Clinical Indicators: Right leg swelling and pain. Treatment: IV Cefepime and IV rocephin In order to capture the severity of Illness and necessary documentation specificity, please clarify any body system complications or specific manifestations related to the diabetes: Diabetic Nephropathy Diabetic Autonomic Neuropathy Diabetic Peripheral Vascular Disease Diabetic ulcers, specify location Diabetic Cellulitis Hypoglycemia with or without coma Hyperglycemia Hyperosmolarity Other condition Unable to determine unable to determine MTDD
--- NOTE | 2017-09-20 09:37 | CDI ---
Last Revision, May 2017 Documentation Clarification Form Date: 09/20/17 From: Angie Yebaoh Phone: If you have a question regarding this query, please contact Isaura Gauthier at [phone] between 8am and 5pm Admit Date: 09/13/2017 8:16:00 PM Patient Name: Tia Alonso Visit Number: [id number] Discharge Date: 09/19/15 ATTENTION: The Clinical Documentation Specialists (CDI) and [facility] Coding Staff appreciate your assistance in clarifying documentation. Please respond to the clarification below the line at the bottom and electronically sign. The CDI & [facility] Coding staff will review the response and follow-up if needed. Please note: Queries are made part of the Legal Health Record. If you have any questions, please contact the author of this message via ITS. Dr. Juan Macias Nursing documentation in the health record reflects an alteration of the skin on the medial buttock. Patient history/risk factors: Patient has a history of diabetes mellitus, COPD and CHF. She was admitted for COPD exacerbation and ulcer and cellulitis to the right lower extremity Clinical Indicators: Erythema Treatment: Dressing In your professional opinion, can you please clarify ? Excoriation Traumatic Wound Ulcer(specify) Pressure(specify stage) Venous Arterial Diabetic Other Other, please specify Unable to determine unable to determine MTDD
== END 2017-09-18 17:15 | DRG 291 ==
LOC: EC 18:17 → 6SEL 20:16 → 5MS5E 09-17 09:30 → 5ONC 09-18 10:27
PROVIDERS: ADMIT Hospitalist; ATTEND Hospitalist
DX: I11.0 Hypertensive heart disease with heart failure (principal); J96.01 Acute respiratory failure with hypoxia; E11.51 Type 2 diabetes mellitus with diabetic peripheral angiopathy without gangrene; E11.622 Type 2 diabetes mellitus with other skin ulcer; L03.115 Cellulitis of right lower limb; E66.01 Morbid (severe) obesity due to excess calories; J44.1 Chronic obstructive pulmonary disease with (acute) exacerbation; L97.818 Non-pressure chronic ulcer of other part of right lower leg with other specified severity; N39.0 Urinary tract infection, site not specified; Z68.41 Body mass index [BMI] 40.0-44.9, adult; I50.33 Acute on chronic diastolic (congestive) heart failure; E03.9 Hypothyroidism, unspecified; E78.5 Hyperlipidemia, unspecified; B96.89 Other specified bacterial agents as the cause of diseases classified elsewhere; F32.9 Major depressive disorder, single episode, unspecified; E11.65 Type 2 diabetes mellitus with hyperglycemia; M06.9 Rheumatoid arthritis, unspecified; R26.9 Unspecified abnormalities of gait and mobility; I35.0 Nonrheumatic aortic (valve) stenosis; M79.671 Pain in right foot; G89.29 Other chronic pain; M54.9 Dorsalgia, unspecified; Z79.899 Other long term (current) drug therapy; Z79.01 Long term (current) use of anticoagulants; Z79.4 Long term (current) use of insulin; Z79.82 Long term (current) use of aspirin; Z85.72 Personal history of non-Hodgkin lymphomas; Z86.711 Personal history of pulmonary embolism; Z86.718 Personal history of other venous thrombosis and embolism; Z90.81 Acquired absence of spleen; Z90.49 Acquired absence of other specified parts of digestive tract; Z87.891 Personal history of nicotine dependence; Z96.651 Presence of right artificial knee joint; Z91.041 Radiographic dye allergy status; Z98.890 Other specified postprocedural states; Z87.01 Personal history of pneumonia (recurrent)
CPT/HCPCS: 36415; 71046; 71275; 80048; 80053; 81001; 82550; 82553; 83735; 83880; 84484; 85025; 85027; 85610; 85730; 87040; 87070; 87086; 87205; 93005; 93306; 94640; 94760; 96374; 96375; 99285

== ENCOUNTER → 2017-10-25 | Outpatient (CLI) | payer MEDICARE | END | disposition home or self-care (01) | LOC: RADUSWWP 13:18 | PROVIDERS: ATTEND Family Medicine | DX: M79.604 Pain in right leg (principal); M79.605 Pain in left leg | CPT/HCPCS: 93922 ==

== ENCOUNTER 2017-11-24 08:58 | Inpatient (IN) | payer MEDICARE ==
[2017-11-24] MEDS ORDERED: IBUPROFEN 600 MG TAB PO STA (09:16)
[2017-11-24] MEDS ORDERED: ACETAMINOPHEN TAB 500 MG TAB PO STA (09:16)
[2017-11-24] MEDS ORDERED: cefTRIAXone IN SWFI 1,000 MG/10 ML SYRINGE IVP STA (09:19)
[2017-11-24] MEDS ORDERED: IPRATROPIUM-ALBUTEROL 3 ML NEB INHALATION STA (09:20)
--- NOTE | 2017-11-24 09:21 | ED ---
General Adult HPI - General Stated complaint: Weakness/poss UTI Time Seen by Provider: 11/24/17 09:04 Source: RN notes reviewed, old records reviewed - History of Present Illness Initial comments: This Patient is a 72-year-old female presents emergency Department chief complaint of fever, weakness, concerns for urinary tract infection. She eventually with urinary tract infections off and on for the past 5 months. Also has a history of right ankle infection status post ORIF. She was discharged from rehab facility has been home. She has also complained of a mild productive cough. The past day she's become increasingly weak. She rates the EMS. Blood pressure 90/50. Patient has a temperature 99.2. She states that she is having some burning with urination today. Normal stools. Denies any significant abdominal pain or chest pain or shortness of breath. Denies any headache. No falls. - Related Data Home Medications Medication Instructions Recorded Confirmed sitaGLIPtin [Januvia] 100 mg PO DAILY@0800 10/09/13 11/24/17 DULoxetine HCL [Cymbalta] 30 mg PO BID@0800,1700 11/27/15 11/24/17 rOPINIRole HCL [Requip] 3 mg PO HS@2100 11/27/15 11/24/17 Rivaroxaban [Xarelto] 20 mg PO DAILY@1700 05/12/16 11/24/17 Allopurinol [Zyloprim] 100 mg PO DAILY@0800 09/20/16 11/24/17 Levothyroxine Sodium [Synthroid] 100 mcg PO DAILY 09/20/16 11/24/17 Omeprazole [PriLOSEC] 20 mg PO DAILY@0700 09/20/16 11/24/17 Atorvastatin [Lipitor] 40 mg PO DAILY@1700 05/02/17 11/24/17 Insulin Lispro [humaLOG Kwikpen] See Protocol SQ ACHS 05/02/17 11/24/17 Acetaminophen Tab [Tylenol] 650 mg PO Q6H PRN 08/03/17 11/24/17 Amino Acids/Protein Hydrolys 30 ml PO DAILY@1700 08/03/17 11/24/17 [Pro-Stat Supplement] Budesonide/Formoterol Fumarate 2 puff INHALATION RT-BID PRN 08/03/17 11/24/17 [Symbicort 80-4.5 Mcg Inhaler] Cholecalciferol (Vitamin D3) 2,000 unit PO DAILY@1700 08/03/17 11/24/17 [Vitamin D3] Cyclobenzaprine [Flexeril] 5 mg PO TID PRN 08/03/17 11/24/17 Ferrous Sulfate [Feosol] 325 mg PO W/SUPPER 08/03/17 11/24/17 Glucerna Shake 1 can PO HS 08/03/17 11/24/17 L.acidoph,Paracasei, B.lactis 1 cap PO DAILY 08/03/17 11/24/17 [Probiotic] Polyethylene Glycol 3350 [Miralax] 17 gm PO DAILY PRN 08/03/17 11/24/17 Potassium Chloride ER [K-Dur 20] 20 meq PO DAILY@1700 08/03/17 11/24/17 Pregabalin [Lyrica] 200 mg PO BID@0800,2100 08/03/17 11/24/17 Albuterol Inhaler [Ventolin Hfa 2 puff INHALATION RT-Q4H PRN 09/07/17 11/24/17 Inhaler] Insulin Lispro [humaLOG Kwikpen] 6 unit SQ AC-TID 09/07/17 11/24/17 Mirabegron [Myrbetriq] 50 mg PO DAILY 09/07/17 11/24/17 Ondansetron [Zofran] 4 mg PO Q8HR PRN 09/07/17 11/24/17 Sennosides/Docusate Sodium [Shayy 2 tab PO DAILY 09/07/17 11/24/17 Colace] Aspirin EC [Ecotrin Low Dose] 81 mg PO DAILY@1700 09/13/17 11/24/17 Collagenase [Santyl] 1 applic TOPICAL DAILY 09/13/17 11/24/17 Insulin Detemir [Levemir] 20 unit SQ HS 09/13/17 11/24/17 Miconazole Nitrate [Lotrimin AF 1 applic TOPICAL BID 09/13/17 11/24/17 Powder] Cranberry 425 Cap 425 mg PO W/SUPPER 11/24/17 11/24/17 Cranberry Fruit Concentrate [Azo 500 mg PO TID PRN 11/24/17 11/24/17 Cranberry] Diclofenac Sodium [Voltaren Gel] 2 gram TOPICAL TID 11/24/17 11/24/17 Loratadine [Claritin] 10 mg PO DAILY PRN 11/24/17 11/24/17 Metoprolol Tartrate [Lopressor] 12.5 mg PO BID@0800,1700 11/24/17 11/24/17 clonazePAM [KlonoPIN] 0.25 mg PO Q12H PRN 11/24/17 11/24/17 Previous Rx's Medication Instructions Recorded Furosemide [Lasix] 40 mg PO DAILY #30 tablet 09/16/17 HYDROcodone/APAP 10-325MG [[place] 1 tab PO Q4HR PRN #20 tab 09/18/17 10-325] Allergies Allergy/AdvReac Type Severity Reaction Status Date / Time Iodinated Contrast- Oral and Allergy Unknown Verified 11/24/17 10:12 IV Dye iodine Allergy Unknown Verified 11/24/17 10:12 Review of Systems ROS Statement: Those systems with pertinent positive or pertinent negative responses have been documented in the HPI. ROS Other: All systems not noted in ROS Statement are negative. Past Medical History Past Medical History: Cancer, COPD, Diabetes Mellitus, Deep Vein Thrombosis (DVT ), Hyperlipidemia, Hypertension, Pneumonia, Pulmonary Embolus (PE), Rheumatoid Arthritis (RA), Skin Disorder, Thyroid Disorder Additional Past Medical History / Comment(s): .mult ulcers to stomach,chest and breast-unk cause has had for over a yr-seen at [facility],"[id number] with spleenectomy and radiation,DVTs & PE yrs ago.Uses walker and w/c. fractured ankle right june History of Any Multi-Drug Resistant Organisms: None Reported Past Surgical History: Appendectomy, Section, Cholecystectomy, Orthopedic Surgery Additional Past Surgical History / Comment(s): total rt knee Jan 2017, Splenectomy, Carpal tunnel release, rotator cuff, right bimalleolar fracture repair 06/2017 Past Anesthesia/Blood Transfusion Reactions: No Reported Reaction Past Psychological History: Depression Additional Psychological History / Comment(s): The patient is and lives at home with her . She was a tobacco smoker and stopped several years ago. She denies any significant alcohol or recreational drug use. Used to work in. retail sales. She has no experience her extensive travels. No animals in the home.. Smoking Status: Former smoker Past Alcohol Use History: None Reported Additional Past Alcohol Use History / Comment(s): quit smoking 1993,smoked approx 30 yrs,1 ppd. Past Drug Use History: None Reported - Past Family History Father Family Medical History: No Reported History Mother Family Medical History: No Reported History Son(s) Family Medical History: No Reported History Additional Family Medical History / Comment(s): She relates that her parents of old age her mother was about 90 father was 88, without sniffing and medical troubles. She does relate that her son committed suicide but her daughter is quite healthy. General Exam - General Exam Comments Initial Comments: Very weak 72-year-old obese female. General appearance: alert, in no apparent distress Head exam: Present: atraumatic, normocephalic, normal inspection Eye exam: Present: normal appearance, PERRL, EOMI. Absent: scleral icterus, conjunctival injection, periorbital swelling ENT exam: Present: normal exam, mucous membranes moist Neck exam: Present: normal inspection. Absent: tenderness, meningismus, lymphadenopathy Respiratory exam: Present: wheezes. Absent: normal lung sounds bilaterally ( Patient has bilateral wheezing.), respiratory distress, rales, rhonchi, stridor Cardiovascular Exam: Present: regular rate, normal rhythm, normal heart sounds. Absent: systolic murmur, diastolic murmur, rubs, gallop, clicks GI/Abdominal exam: Present: soft, normal bowel sounds. Absent: distended, tenderness, guarding, rebound, rigid Extremities exam: Present: other (Patient is an Tyron wrap on her right ankle and foot. Swelling noted.) Back exam: Present: normal inspection Neurological exam: Present: alert, oriented X3, CN II-XII intact Psychiatric exam: Present: normal affect, normal mood Course Vital Signs 11/24/17 11/24/17 11/24/17 09:00 09:30 09:55 Temperature 99.2 F Pulse Rate 100 99 100 Respiratory 16 18 Rate Blood Pressure 93/51 106/58 O2 Sat by Pulse 92 L 91 L Oximetry - Reevaluation(s) Reevaluation #1: 11/24/17 09:19 Patient reports that she would want one attempt at resuscitation otherwise after that she wants to be a no code. Medical Decision Making - Medical Decision Making 72-year-old female presents with weakness, and fevers. She is initially concerned for urinary tract infection. Straight cath was completed and she has no UTI. She does have some wheezing and does report a productive cough. Chest x-ray is completed shows a right upper lobe pneumonia. She has been in and out of the hospital multiple times in the past few months. We'll treat for possible acquired pneumonia. I did give the Patient 1 g of Rocephin. We'll start the Patient on Levaquin and Zosyn. Patient also was given a breathing treatment. She does report some improvement. Her initial blood pressure on arrival is 90/50. Given a liter bolusA blood pressure 106/58. Does meet sepsis criteria. Patient's case of Dr. Weinberg. Patient admitted at this time. - Lab Data Result diagrams: 11/24/17 09:32 11/24/17 09:32 Lab Results 11/24/17 11/24/17 11/24/17 Range/Units 09:32 09:32 09:32 WBC 16.5 H (3.8-10.6) k/uL RBC 4.60 (3.80-5.40) m/uL Hgb 14.3 (11.4-16.0) gm/dL Hct 44.8 (34.0-46.0) % MCV 97.4 (80.0-100.0) fL MCH 31.0 (25.0-35.0) pg MCHC 31.9 (31.0-37.0) g/dL RDW 16.9 H (11.5-15.5) % Plt Count 214 (150-450) k/uL Neutrophils % 81 % Lymphocytes % 13 % Monocytes % 4 % Eosinophils % 1 % Basophils % 0 % Neutrophils # 13.3 H (1.3-7.7) k/uL Lymphocytes # 2.1 (1.0-4.8) k/uL Monocytes # 0.6 (0-1.0) k/uL Eosinophils # 0.2 (0-0.7) k/uL Basophils # 0.1 (0-0.2) k/uL Hypochromasia Slight Anisocytosis Slight PT 14.1 H (9.0-12.0) sec INR 1.5 H (<1.2) APTT 35.6 H (22.0-30.0) sec Sodium 136 L (137-145) mmol/L Potassium 4.4 (3.5-5.1) mmol/L Chloride 105 (98-107) mmol/L Carbon Dioxide 24 (22-30) mmol/L Anion Gap 7 mmol/L BUN 19 H (7-17) mg/dL Creatinine 0.80 (0.52-1.04) mg/dL Est GFR (CKD-EPI)AfAm 85 (>60 ml/min/1.73 sqM) Est GFR (CKD-EPI)NonAf 74 (>60 ml/min/1.73 sqM) Glucose 217 H (74-99) mg/dL Plasma Lactic Acid Gee (0.7-2.0) mmol/L Calcium 9.1 (8.4-10.2) mg/dL Total Bilirubin 0.6 (0.2-1.3) mg/dL AST 27 (14-36) U/L ALT 28 (9-52) U/L Alkaline Phosphatase 61 (38-126) U/L Total Creatine Kinase (30-135) U/L CK-MB (CK-2) (0.0-2.4) ng/mL CK-MB (CK-2) Rel Index Troponin I (0.000-0.034) ng/mL Total Protein 5.7 L (6.3-8.2) g/dL Albumin 3.0 L (3.5-5.0) g/dL Urine Color Urine Appearance (Clear) Urine pH (5.0-8.0) Ur Specific [place] (1.001-1.035) Urine Protein (Negative) Urine Glucose (UA) (Negative) Urine Ketones (Negative) Urine Blood (Negative) Urine Nitrite (Negative) Urine Bilirubin (Negative) Urine Urobilinogen (<2.0) mg/dL Ur Leukocyte Esterase (Negative) 11/24/17 11/24/17 11/24/17 Range/Units 09:32 09:32 10:06 WBC (3.8-10.6) k/uL RBC (3.80-5.40) m/uL Hgb (11.4-16.0) gm/dL Hct (34.0-46.0) % MCV (80.0-100.0) fL MCH (25.0-35.0) pg MCHC (31.0-37.0) g/dL RDW (11.5-15.5) % Plt Count (150-450) k/uL Neutrophils % % Lymphocytes % % Monocytes % % Eosinophils % % Basophils % % Neutrophils # (1.3-7.7) k/uL Lymphocytes # (1.0-4.8) k/uL Monocytes # (0-1.0) k/uL Eosinophils # (0-0.7) k/uL Basophils # (0-0.2) k/uL Hypochromasia Anisocytosis PT (9.0-12.0) sec INR (<1.2) APTT (22.0-30.0) sec Sodium (137-145) mmol/L Potassium (3.5-5.1) mmol/L Chloride (98-107) mmol/L Carbon Dioxide (22-30) mmol/L Anion Gap mmol/L BUN (7-17) mg/dL Creatinine (0.52-1.04) mg/dL Est GFR (CKD-EPI)AfAm (>60 ml/min/1.73 sqM) Est GFR (CKD-EPI)NonAf (>60 ml/min/1.73 sqM) Glucose (74-99) mg/dL Plasma Lactic Acid Gee 1.5 (0.7-2.0) mmol/L Calcium (8.4-10.2) mg/dL Total Bilirubin (0.2-1.3) mg/dL AST (14-36) U/L ALT (9-52) U/L Alkaline Phosphatase (38-126) U/L Total Creatine Kinase 154 H (30-135) U/L CK-MB (CK-2) 2.1 (0.0-2.4) ng/mL CK-MB (CK-2) Rel Index 1.4 Troponin I <0.012 (0.000-0.034) ng/mL Total Protein (6.3-8.2) g/dL Albumin (3.5-5.0) g/dL Urine Color Yellow Urine Appearance Clear (Clear) Urine pH 5.0 (5.0-8.0) Ur Specific [place] 1.009 (1.001-1.035) Urine Protein Negative (Negative) Urine Glucose (UA) Negative (Negative) Urine Ketones Negative (Negative) Urine Blood Negative (Negative) Urine Nitrite Negative (Negative) Urine Bilirubin Negative (Negative) Urine Urobilinogen <2.0 (<2.0) mg/dL Ur Leukocyte Esterase Negative (Negative) - Radiology Data Radiology results: report reviewed EKG shows normal sinus rhythm, left anterior fasicular block, concern for for LVH. Abnormal EKG. Is 142. QRS ration 100. QTQTC 364/469 ms. No acute changes from EKG on September 22. \\ Assessment his chronic emphysema changes with developing right upper lobe infiltrate progress advise. Disposition Clinical Impression: Sepsis, HCAP (healthcare-associated pneumonia), Wound of right ankle Disposition: ADMITTED IP TO THIS HOSP Condition: Stable Is patient prescribed a controlled substance at d/c from ED?: No When asked, does pt state using other controlled substances?: No If prescribed controlled substance>3 days was MAPS reviewed?: No If opioid is for acute pain is fill amount 7 days or less?: No If Rx opioid, was Start Talking consent form obtained?: No Referrals: Patric Richard MD [Primary Care Provider] - 1-2 days Time of Disposition: 11:21
[2017-11-24] MEDS: SODIUM CHLORIDE 0.9% 500 ML IV SCH ×7 (09:29→15:02)
[2017-11-24] MEDS: SODIUM CHLORIDE 0.9% 1,000 ML IV SCH (09:30)
[2017-11-24 09:54] LABS: Anisocytosis Slight; Basophils # (A) 0.1 k/uL (0-0.2); Basophils % (A) 0 %; Eosinophils # (A) 0.2 k/uL (0-0.7); Eosinophils % (A) 1 %; HCT 44.8 % (34.0-46.0); HGB 14.3 gm/dL (11.4-16.0); Hypochromasia Slight; Lymphocytes # (A) 2.1 k/uL (1.0-4.8); Lymphocytes % (A) 13 %; MCHC 31.9 g/dL (31.0-37.0); MCV 97.4 fL (80.0-100.0); Mean Platelet Volume 7.7; Monocytes # (A) 0.6 k/uL (0-1.0); Monocytes % (A) 4 %; Neutrophils # (A) 13.3 k/uL (1.3-7.7); Neutrophils % (A) 81 %; Platelet Count 214 k/uL (150-450); RDW 16.9 % (11.5-15.5); WBC 16.5 k/uL (3.8-10.6)
[2017-11-24 10:10] LABS: INR 1.5 (<1.2); Partial Thromboplastin Time 35.6 sec (22.0-30.0); Prothrombin Time 14.1 sec (9.0-12.0)
[2017-11-24 10:14] LABS: Appearance,Urine Clear (Clear); Bilirubin,Urine Negative (Negative); Blood,Urine Negative (Negative); Color,Urine Yellow; Glucose,Urine (UA) Negative (Negative); Ketones,Urine Negative (Negative); Leukocyte Esterase,Urine Negative (Negative); Nitrite,Urine Negative (Negative); Protein,Urine Negative (Negative); Specific Gravity,Urine 1.009 (1.001-1.035); Urobilinogen,Urine <2.0 mg/dL (<2.0)
[2017-11-24 10:18] LABS: Calcium 9.1 mg/dL (8.4-10.2); Creatine Kinase 154 U/L (30-135); Potassium 4.4 mmol/L (3.5-5.1); Total Bilirubin 0.6 mg/dL (0.2-1.3); Total Protein 5.7 g/dL (6.3-8.2)
[2017-11-24 10:30] LABS: Creatine Kinase MB 2.1 ng/mL (0.0-2.4); Troponin I <0.012 ng/mL (0.000-0.034)
--- NOTE | 2017-11-24 10:35 | XR ---
EXAMINATION TYPE: XR chest 2V DATE OF EXAM: 11/24/2017 COMPARISON: CT chest September 14, 2017. Two-view chest x-ray September 13, 2017 HISTORY: Weakness, history of COPD TECHNIQUE: Frontal and lateral views of the chest are obtained. FINDINGS: Evaluation is suboptimal secondary to patient's large body habitus. Cardiac silhouette siz e remains within normal limits. There is background chronic emphysematous change with new right upper lobe opacity. Left lung is clear surgical clip just below left hemidiaphragm is redemonstrated. No l arge pleural effusion or pneumothorax is present. There is advanced degenerative change left glenohum eral joint. There is suspected right glenohumeral joint subluxation redemonstrated. IMPRESSION: Chronic emphysematous change with developing right upper lobe infiltrate, progress study advised.
[2017-11-24] MEDS ORDERED: IPRATROPIUM-ALBUTEROL 3 ML NEB INHALATION PRN (10:59)
[2017-11-24] MEDS ORDERED: PNEUMONIA PROTOCOL UTILIZED 1 EACH MISC PO PRN (10:59)
[2017-11-24] MEDS ORDERED: POLYETHYLENE GLYCOL 3350 17 GM POWD.PACK PO PRN (11:31)
[2017-11-24] MEDS ORDERED: ACETAMINOPHEN TAB 325 MG TAB PO PRN (11:31)
[2017-11-24] MEDS ORDERED: HYDROcodone/APAP 10-325MG 1 EACH TAB PO PRN (11:31)
[2017-11-24] MEDS ORDERED: CYCLOBENZAPRINE 5 MG TAB PO PRN (11:31)
[2017-11-24] MEDS ORDERED: clonazePAM 0.5 MG TAB PO PRN (11:31)
[2017-11-24] MEDS ORDERED: methylPREDNISolone SOD SUCCI 125 MG/2 ML VIAL IV STA (12:01)
--- NOTE | 2017-11-24 12:22 | P.HPIM ---
History of Present Illness H&P Date: 11/24/17 Chief Complaint: Shortness of breath cough and weakness and fatigue The patient is a 72-year-old morbidly obese female with a past medical history of COPD not known to be oxygen dependent. Type 2 diabetes with peripheral neuropathy, essential hypertension and a history of thromboembolic disease currently on anticoagulation with Xarelto that presents to the ER via private vehicle with her with chief complaint of increasing fatigue and weakness, dysuria and fever with concerns for urinary tract infection. The patient also reports a productive cough for the last 2 days with increased difficulty breathing last night with ongoing wheezes despite her rescue inhaler , she reports a fever of 102 at home. She denies any chest pain, palpitations or lower extremity swelling, she also reports that her blood sugars have been out of control over the last 2 days and mentions that they were previously doing well. the patient has a chronic stage III ulcer on right lower leg lateral that was recently debrided [address] Merino at the wound care center that she reports is doing fine. The patient has been hospitalized in the last 3 months with a right lower extremity cellulitis and COPD exacerbation. In the ER she was noted to be in respiratory distress and placed on supplemental oxygen she received a comprehensive workup including a CBC CMP and was noted to have a leukocytosis of 16.5, blood sugar of 217, and a chest x-ray that was consistent with a developing right upper lobe infiltrate, EKG normal sinus rhythm with a rate of 100, she was started on empiric IV antibiotics and given breathing treatments and recommended for admission for sepsis and pneumonia Past Medical History Past Medical History: Cancer, COPD, Diabetes Mellitus, Deep Vein Thrombosis (DVT ), Hyperlipidemia, Hypertension, Pneumonia, Pulmonary Embolus (PE), Rheumatoid Arthritis (RA), Skin Disorder, Thyroid Disorder Additional Past Medical History / Comment(s): .mult ulcers to stomach,chest and breast-unk cause has had for over a yr-seen at [facility],"[id number] with spleenectomy and radiation,DVTs & PE yrs ago.Uses walker and w/c. fractured ankle right june History of Any Multi-Drug Resistant Organisms: None Reported Past Surgical History: Appendectomy, Section, Cholecystectomy, Orthopedic Surgery Additional Past Surgical History / Comment(s): total rt knee Jan 2017, Splenectomy, Carpal tunnel release, rotator cuff, right bimalleolar fracture repair 06/2017 Past Anesthesia/Blood Transfusion Reactions: No Reported Reaction Past Psychological History: Depression Additional Psychological History / Comment(s): The patient is and lives at home with her . She was a tobacco smoker and stopped several years ago. She denies any significant alcohol or recreational drug use. Used to work in. retail sales. She has no experience her extensive travels. No animals in the home.. Smoking Status: Former smoker Past Alcohol Use History: None Reported Additional Past Alcohol Use History / Comment(s): quit smoking 1993,smoked approx 30 yrs,1 ppd. Past Drug Use History: None Reported - Past Family History Father Family Medical History: No Reported History Mother Family Medical History: No Reported History Son(s) Family Medical History: No Reported History Additional Family Medical History / Comment(s): She relates that her parents of old age her mother was about 90 father was 88, without sniffing and medical troubles. She does relate that her son committed suicide but her daughter is quite healthy. Medications and Allergies Home Medications Medication Instructions Recorded Confirmed Type sitaGLIPtin [Januvia] 100 mg PO DAILY@0800 0511/24/17 History DULoxetine HCL [Cymbalta] 30 mg PO BID@0800,1700 11/27/15 11/24/17 History rOPINIRole HCL [Requip] 3 mg PO HS@2100 11/27/15 11/24/17 History Rivaroxaban [Xarelto] 20 mg PO DAILY@1700 05/12/16 11/24/17 History Allopurinol [Zyloprim] 100 mg PO DAILY@0800 09/20/16 11/24/17 History Levothyroxine Sodium [Synthroid] 100 mcg PO DAILY 09/20/16 11/24/17 History Omeprazole [PriLOSEC] 20 mg PO DAILY@0700 09/20/16 11/24/17 History Atorvastatin [Lipitor] 40 mg PO DAILY@1700 05/02/17 11/24/17 History Insulin Lispro [humaLOG Kwikpen] See Protocol SQ ACHS 05/02/17 11/24/17 History Acetaminophen Tab [Tylenol] 650 mg PO Q6H PRN 08/03/17 11/24/17 History Amino Acids/Protein Hydrolys 30 ml PO DAILY@1700 08/03/17 11/24/17 History [Pro-Stat Supplement] Budesonide/Formoterol Fumarate 2 puff INHALATION RT-BID PRN 08/03/17 11/24/17 History [Symbicort 80-4.5 Mcg Inhaler] Cholecalciferol (Vitamin D3) 2,000 unit PO DAILY@1700 08/03/17 11/24/17 History [Vitamin D3] Cyclobenzaprine [Flexeril] 5 mg PO TID PRN 08/03/17 11/24/17 History Ferrous Sulfate [Feosol] 325 mg PO W/SUPPER 08/03/17 11/24/17 History Glucerna Shake 1 can PO HS 08/03/17 11/24/17 History L.acidoph,Paracasei, B.lactis 1 cap PO DAILY 08/03/17 11/24/17 History [Probiotic] Polyethylene Glycol 3350 [Miralax] 17 gm PO DAILY PRN 08/03/17 11/24/17 History Potassium Chloride ER [K-Dur 20] 20 meq PO DAILY@169908/03/17 11/24/17 History Pregabalin [Lyrica] 200 mg PO BID@0800,2100 08/03/17 11/24/17 History Albuterol Inhaler [Ventolin Hfa 2 puff INHALATION RT-Q4H PRN 09/07/17 11/24/17 History Inhaler] Insulin Lispro [humaLOG Kwikpen] 6 unit SQ AC-TID 09/07/17 11/24/17 History Mirabegron [Myrbetriq] 50 mg PO DAILY 09/07/17 11/24/17 History Ondansetron [Zofran] 4 mg PO Q8HR PRN 09/07/17 11/24/17 History Sennosides/Docusate Sodium [Shayy 2 tab PO DAILY 09/07/17 11/24/17 History Colace] Aspirin EC [Ecotrin Low Dose] 81 mg PO DAILY@0 09/13/17 11/24/17 History Collagenase [Santyl] 1 applic TOPICAL DAILY 09/13/17 11/24/17 History Insulin Detemir [Levemir] 20 unit SQ HS 09/13/17 11/24/17 History Miconazole Nitrate [Lotrimin AF 1 applic TOPICAL BID 09/13/17 11/24/17 History Powder] Furosemide [Lasix] 40 mg PO DAILY #30 tablet 09/16/17 11/24/17 Rx HYDROcodone/APAP 10-325MG [[place] 1 tab PO Q4HR PRN #20 tab 09/18/17 11/24/17 Rx 10-325] Cranberry 425 Cap 425 mg PO W/SUPPER 11/24/17 11/24/17 History Cranberry Fruit Concentrate [Azo 500 mg PO TID PRN 11/24/17 11/24/17 History Cranberry] Diclofenac Sodium [Voltaren Gel] 2 gram TOPICAL TID 11/24/17 11/24/17 History Loratadine [Claritin] 10 mg PO DAILY PRN 11/24/17 11/24/17 History Metoprolol Tartrate [Lopressor] 12.5 mg PO BID@0800,1700 11/24/17 11/24/17 History clonazePAM [KlonoPIN] 0.25 mg PO Q12H PRN 11/24/17 11/24/17 History Allergies Allergy/AdvReac Type Severity Reaction Status Date / Time Iodinated Contrast- Oral and Allergy Unknown Verified 11/24/17 10:12 IV Dye iodine Allergy Unknown Verified 11/24/17 10:12 Physical Exam Vitals: Vital Signs Temp Pulse Resp BP Pulse Ox 11/24/17 09:55 100 18 106/58 91 L 11/24/17 09:30 99 11/24/17 09:00 99.2 F 100 16 93/51 92 L Intake and Output 11/23/17 11/24/17 11/24/17 22:59 06:59 14:59 Other: Weight 109.316 kg Constitutional: Mild respiratory distress, conversant, pleasant Eyes: Anicteric sclerae, moist conjunctiva, no lid-lag, PERRLA ENMT: NC/AT,Oropharynx clear, no erythema, exudates Neck:Supple, FROM, no masses, or JVD, No carotid bruits; No thyromegaly Lungs: Coarse breath sounds with biphasic wheezes diffusely, Clear to percussion , speaking in incomplete sentences, no accessory muscle use on 2 L nasal cannula Cardiovascular: Heart regular in rate and rhythm, No murmurs, gallops, or rubs no peripheral edema Abdominal: Soft Nontender, nom distended, no guarding, no rebound or rigidity, Normoactive bowel sounds No hepatomegaly, No splenomegaly, No palpable mass No abdominal wall hernia noted Skin: Normal temperature, tone, texture, turgor, No induration No subcutaneous nodules, No rash, lesions, No ulcers Extremities:No digital cyanosis No clubbing, Pedal pulses intact and symmetrical Radial pulses intact and symmetrical Normal gait and station, No calf tenderness, right lower extremity dressed without any significant drainage noted Psychiatric: Alert and oriented to person, place and time, Appropriate affect Intact judgement Neuro: Muscles Strength 5/5 in all 4 extremities, Sensation to light touch grossly present throughout, Cranial nerves II-XII grossly intact. No focal sensory deficits Results CBC & Chem 7: 11/25/17 08:04 11/25/17 08:04 Labs: Abnormal Lab Results - Last 24 Hours (Table) 11/24/17 11/24/17 11/24/17 Range/Units 09:32 09:32 09:32 WBC 16.5 H (3.8-10.6) k/uL RDW 16.9 H (11.5-15.5) % Neutrophils # 13.3 H (1.3-7.7) k/uL PT 14.1 H (9.0-12.0) sec INR 1.5 H (<1.2) APTT 35.6 H (22.0-30.0) sec Sodium 136 L (137-145) mmol/L BUN 19 H (7-17) mg/dL Glucose 217 H (74-99) mg/dL Total Creatine Kinase (30-135) U/L Total Protein 5.7 L (6.3-8.2) g/dL Albumin 3.0 L (3.5-5.0) g/dL 11/24/17 Range/Units 09:32 WBC (3.8-10.6) k/uL RDW (11.5-15.5) % Neutrophils # (1.3-7.7) k/uL PT (9.0-12.0) sec INR (<1.2) APTT (22.0-30.0) sec Sodium (137-145) mmol/L BUN (7-17) mg/dL Glucose (74-99) mg/dL Total Creatine Kinase 154 H (30-135) U/L Total Protein (6.3-8.2) g/dL Albumin (3.5-5.0) g/dL Assessment and Plan Assessment: Chronic medical issues Essential hypertension Hyperlipidemia Rheumatoid arthritis Hypothyroidism CODE STATUS Full code (1) Acute exacerbation of chronic obstructive airways disease Current Visit: No Status: Acute Code(s): J44.1 - CHRONIC OBSTRUCTIVE PULMONARY DISEASE W (ACUTE) EXACERBATION SNOMED Code(s): 590484171 (2) HCAP (healthcare-associated pneumonia) Current Visit: Yes Status: Acute Code(s): J18.9 - PNEUMONIA, UNSPECIFIED ORGANISM SNOMED Code(s): 760162473 (3) Sepsis Current Visit: Yes Status: Acute Code(s): A41.9 - SEPSIS, UNSPECIFIED ORGANISM SNOMED Code(s): 98188171 (4) Type 2 diabetes mellitus with hyperglycemia Current Visit: Yes Status: Acute Code(s): E11.65 - TYPE 2 DIABETES MELLITUS WITH HYPERGLYCEMIA SNOMED Code(s): 080493099988850 (5) Ulcer of right leg Current Visit: Yes Status: Acute Code(s): L97.919 - NON-PRS CHRONIC ULC UNSP PRT OF R LOW LEG W UNSP SEVERITY SNOMED Code(s): 28046573 Plan: The patient is admitted anticipated greater than 2 midnight stay with sepsis with acute COPD exacerbation triggered by a right upper lobe pneumonia, currently hemodynamically stable, continue with supplemental oxygen with scheduled and when necessary breathing treatments along with empiric IV antibiotics Vancomycin and Zosyn and Levaquin to cover for healthcare associated infection. We'll also consult Dr. Merino regarding the patient's ongoing right leg ulcer We will check sputum and blood cultures urinalysis negative, we'll also consult ID for further recommendations. The patient started on Accu-Cheks with her home insulin regimen restarted along with correctional scale insulin, A1c pending, anticipate hyperglycemia due to infection superimposed on steroids for COPD exacerbation. We'll continue with hydration after 2 L bolus at 100 mL an hour, resume her home antihypertensive regimen. Continue her on anticoagulation with Xarelto and start her on Protonix for GI prophylaxis. We'll continue to follow her clinical course Time with Patient: Greater than 30
--- NOTE | 2017-11-24 14:11 | P.GSCN ---
History of Present Illness Consult date: 11/24/17 Reason for Consult: Patient known to us, right lower extremity chronic wound Requesting physician: Denver Wilson History of present illness: This 72-year-old patient well known to our service as she has been following with Dr. Merino in the wound care center. She presented to [facility] emergency room with complaints of increased weakness, fatigue, shortness of breath, and concerns for possible urinary tract infection which she gets frequently. She is being admitted for workup and treatment. Dr. Merino was consulted for wound care recommendations. She had debridement completed 3 days ago in the wound care center. Review of Systems Review of systems was completed and was negative except as noted. - Constitutional Reports fatigue, Reports fever, Reports weakness - Cardiovascular Reports shortness of breath - Respiratory Reports cough with sputum, Reports wheezing - Genitourinary Genitourinary: Reports dysuria - Integumentary Reports wounds - Endocrine Reports high blood sugars Past Medical History Past Medical History: Cancer, COPD, Diabetes Mellitus, Deep Vein Thrombosis (DVT ), Hyperlipidemia, Hypertension, Pneumonia, Pulmonary Embolus (PE), Rheumatoid Arthritis (RA), Skin Disorder, Thyroid Disorder Additional Past Medical History / Comment(s): Mult small skin ulcers to stomach, chest and breast-unk cause has had for over a yr-seen at [facility], 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 Merino in [facility]. History of Any Multi-Drug Resistant Organisms: None Reported Past Surgical History: Appendectomy, Section, Cholecystectomy, Orthopedic Surgery Additional Past Surgical History / Comment(s): total rt knee Jan 2017, splenectomy, bilateral carpal tunnel releases, L rotator cuff repair, right bimalleolar fracture repair 06/2017, R lower leg debridements. Past Anesthesia/Blood Transfusion Reactions: No Reported Reaction Smoking Status: Former smoker - Past Family History Father Family Medical History: No Reported History Additional Family Medical History / Comment(s): Father was healthy and lived to be 88yrs old. Mother Family Medical History: No Reported History Additional Family Medical History / Comment(s): Pt states mother was healthy and lived to be 90yrs old. Son(s) Family Medical History: No Reported History Additional Family Medical History / Comment(s): She does relate that her son committed suicide but her daughter is quite healthy. Medications and Allergies Home Medications Medication Instructions Recorded Confirmed Type sitaGLIPtin [Januvia] 100 mg PO DAILY@0800 05/11/24/17 History DULoxetine HCL [Cymbalta] 30 mg PO BID@0800,1700 11/27/15 11/24/17 History rOPINIRole HCL [Requip] 3 mg PO HS@2100 11/27/15 11/24/17 History Rivaroxaban [Xarelto] 20 mg PO DAILY@1700 05/12/16 11/24/17 History Allopurinol [Zyloprim] 100 mg PO DAILY@0800 09/20/16 11/24/17 History Levothyroxine Sodium [Synthroid] 100 mcg PO DAILY 09/20/16 11/24/17 History Omeprazole [PriLOSEC] 20 mg PO DAILY@0700 09/20/16 11/24/17 History Atorvastatin [Lipitor] 40 mg PO DAILY@1700 05/02/17 11/24/17 History Insulin Lispro [humaLOG Kwikpen] See Protocol SQ ACHS 05/02/17 11/24/17 History Acetaminophen Tab [Tylenol] 650 mg PO Q6H PRN 08/03/17 11/24/17 History Amino Acids/Protein Hydrolys 30 ml PO DAILY@1700 08/03/17 11/24/17 History [Pro-Stat Supplement] Budesonide/Formoterol Fumarate 2 puff INHALATION RT-BID PRN 08/03/17 11/24/17 History [Symbicort 80-4.5 Mcg Inhaler] Cholecalciferol (Vitamin D3) 2,000 unit PO DAILY@1700 08/03/17 11/24/17 History [Vitamin D3] Cyclobenzaprine [Flexeril] 5 mg PO TID PRN 08/03/17 11/24/17 History Ferrous Sulfate [Feosol] 325 mg PO W/SUPPER 08/03/17 11/24/17 History Glucerna Shake 1 can PO HS 08/03/17 11/24/17 History L.acidoph,Paracasei, B.lactis 1 cap PO DAILY 08/03/17 11/24/17 History [Probiotic] Polyethylene Glycol 3350 [Miralax] 17 gm PO DAILY PRN 08/03/17 11/24/17 History Potassium Chloride ER [K-Dur 20] 20 meq PO DAILY@1700 08/03/17 11/24/17 History Pregabalin [Lyrica] 200 mg PO BID@0800,2100 08/03/17 11/24/17 History Albuterol Inhaler [Ventolin Hfa 2 puff INHALATION RT-Q4H PRN 09/07/17 11/24/17 History Inhaler] Insulin Lispro [humaLOG Kwikpen] 6 unit SQ AC-TID 09/07/17 11/24/17 History Mirabegron [Myrbetriq] 50 mg PO DAILY 09/07/17 11/24/17 History Ondansetron [Zofran] 4 mg PO Q8HR PRN 09/07/17 11/24/17 History Sennosides/Docusate Sodium [Shayy 2 tab PO DAILY 09/07/17 11/24/17 History Colace] Aspirin EC [Ecotrin Low Dose] 81 mg PO DAILY@1700 09/13/17 11/24/17 History Collagenase [Santyl] 1 applic TOPICAL DAILY 09/13/17 11/24/17 History Insulin Detemir [Levemir] 20 unit SQ HS 09/13/17 11/24/17 History Miconazole Nitrate [Lotrimin AF 1 applic TOPICAL BID 09/13/17 11/24/17 History Powder] Furosemide [Lasix] 40 mg PO DAILY #30 tablet 09/16/17 11/24/17 Rx HYDROcodone/APAP 10-325MG [[place] 1 tab PO Q4HR PRN #20 tab 09/18/17 11/24/17 Rx 10-325] Cranberry 425 Cap 425 mg PO W/SUPPER 11/24/17 11/24/17 History Cranberry Fruit Concentrate [Azo 500 mg PO TID PRN 11/24/17 11/24/17 History Cranberry] Diclofenac Sodium [Voltaren Gel] 2 gram TOPICAL TID 11/24/17 11/24/17 History Loratadine [Claritin] 10 mg PO DAILY PRN 11/24/17 11/24/17 History Metoprolol Tartrate [Lopressor] 12.5 mg PO BID@0800,1700 11/24/17 11/24/17 History clonazePAM [KlonoPIN] 0.25 mg PO Q12H PRN 11/24/17 11/24/17 History Allergies Allergy/AdvReac Type Severity Reaction Status Date / Time Iodinated Contrast- Oral and Allergy Unknown Verified 11/24/17 10:12 IV Dye iodine Allergy Unknown Verified 11/24/17 10:12 Surgical - Exam Vital Signs Temp Pulse Resp BP Pulse Ox 99.2 F 100 16 93/51 92 L 11/24/17 09:00 11/24/17 09:00 11/24/17 09:00 11/24/17 09:00 11/24/17 09:00 - General well developed, well nourished, no distress, no pain, obese - Eyes PERRL, normal ocular movement - ENT no hearing loss - Neck no masses, no bruits, trachea midline - Respiratory Lungs sounds diminished bilaterally. Respirations even, nonlabored. Currently on 2 L nasal cannula with oxygen saturation 92%. - Cardiovascular S1, S2 present. Regular rate and rhythm. Palpable peripheral pulses bilaterally. No edema present. No calf pain or tenderness noted. - Abdomen Abdomen: soft, non tender, bowel sounds - Genitourinary Deferred - Rectum Deferred - Integumentary Right lower extremity with small stage II ulceration. Appears clean with no drainage at this point in time. no rash - Neurologic normal coordination, normal sensation - Psychiatric oriented to time, oriented to person, oriented to place, speech is normal, memory intact Results - Labs 11/24/17 09:32 11/24/17 09:32 Abnormal Lab Results - Last 24 Hours (Table) 11/24/17 11/24/17 11/24/17 Range/Units 09:32 09:32 09:32 WBC 16.5 H (3.8-10.6) k/uL RDW 16.9 H (11.5-15.5) % Neutrophils # 13.3 H (1.3-7.7) k/uL PT 14.1 H (9.0-12.0) sec INR 1.5 H (<1.2) APTT 35.6 H (22.0-30.0) sec Sodium 136 L (137-145) mmol/L BUN 19 H (7-17) mg/dL Glucose 217 H (74-99) mg/dL Total Creatine Kinase (30-135) U/L Total Protein 5.7 L (6.3-8.2) g/dL Albumin 3.0 L (3.5-5.0) g/dL 11/24/17 Range/Units 09:32 WBC (3.8-10.6) k/uL RDW (11.5-15.5) % Neutrophils # (1.3-7.7) k/uL PT (9.0-12.0) sec INR (<1.2) APTT (22.0-30.0) sec Sodium (137-145) mmol/L BUN (7-17) mg/dL Glucose (74-99) mg/dL Total Creatine Kinase 154 H (30-135) U/L Total Protein (6.3-8.2) g/dL Albumin (3.5-5.0) g/dL Diabetes panel 11/24/17 Range/Units 09:32 Sodium 136 L (137-145) mmol/L Potassium 4.4 (3.5-5.1) mmol/L Chloride 105 (98-107) mmol/L Carbon Dioxide 24 (22-30) mmol/L BUN 19 H (7-17) mg/dL Creatinine 0.80 (0.52-1.04) mg/dL Glucose 217 H (74-99) mg/dL Calcium 9.1 (8.4-10.2) mg/dL AST 27 (14-36) U/L ALT 28 (9-52) U/L Alkaline Phosphatase 61 (38-126) U/L Total Protein 5.7 L (6.3-8.2) g/dL Albumin 3.0 L (3.5-5.0) g/dL Calcium panel 11/24/17 Range/Units 09:32 Calcium 9.1 (8.4-10.2) mg/dL Albumin 3.0 L (3.5-5.0) g/dL Pituitary panel 11/24/17 Range/Units 09:32 Sodium 136 L (137-145) mmol/L Potassium 4.4 (3.5-5.1) mmol/L Chloride 105 (98-107) mmol/L Carbon Dioxide 24 (22-30) mmol/L BUN 19 H (7-17) mg/dL Creatinine 0.80 (0.52-1.04) mg/dL Glucose 217 H (74-99) mg/dL Calcium 9.1 (8.4-10.2) mg/dL Adrenal panel 11/24/17 Range/Units 09:32 Sodium 136 L (137-145) mmol/L Potassium 4.4 (3.5-5.1) mmol/L Chloride 105 (98-107) mmol/L Carbon Dioxide 24 (22-30) mmol/L BUN 19 H (7-17) mg/dL Creatinine 0.80 (0.52-1.04) mg/dL Glucose 217 H (74-99) mg/dL Calcium 9.1 (8.4-10.2) mg/dL Total Bilirubin 0.6 (0.2-1.3) mg/dL AST 27 (14-36) U/L ALT 28 (9-52) U/L Alkaline Phosphatase 61 (38-126) U/L Total Protein 5.7 L (6.3-8.2) g/dL Albumin 3.0 L (3.5-5.0) g/dL - Imaging Chest x-ray: report reviewed, image reviewed EKG: image reviewed Assessment and Plan (1) Wound of right ankle Current Visit: Yes Status: Chronic Code(s): S91.001A - UNSPECIFIED OPEN WOUND, RIGHT ANKLE, INITIAL ENCOUNTER SNOMED Code(s): 344851357 Plan: The patient was seen and examined at the bedside. Chart/diagnostics were reviewed. Dr. Merino's wound care notes were reviewed in detail. Will discuss the case with Dr. Merino. At this time we will continue with local wound care per his orders. Optisol silver to be placed to right lower extremity wound every 3 days, covered with 4 x 4. Right lower extremity should be Tyron wrapped from toes to her knees and her leg should remained elevated at all times except when eating or toileting. The patient is understanding of this and states she will be compliant. Medical management per primary care service. Upon discharge from the hospital the patient should continue to follow with Dr. Merino in the wound care center. Thank you Dr. Wilson for this consult. Please call us with any questions. Time with Patient: Greater than 30
[2017-11-24] MEDS: INSULIN ASPART 100 UNIT/ML 1 ML 10 ML VIAL SQ SCH ×5 (14:20→22:00)
[2017-11-24] MEDS: DICLOFENAC SODIUM GEL 100 GM TUBE TOPICAL SCH ×2 (15:38→22:03)
[2017-11-24] MEDS: IPRATROPIUM-ALBUTEROL 3 ML NEB INHALATION SCH ×3 (15:55→19:22)
[2017-11-24] MEDS: PIPERACILLIN-TAZOBACTAM 3.375 GM in DEXTROSE/WATER 1 50ML.BAG IVPB SCH (16:43)
[2017-11-24] MEDS: ATORVASTATIN 40 MG TAB PO SCH (16:43)
[2017-11-24] MEDS: ASPIRIN 81 MG PO SCH (16:43)
[2017-11-24] MEDS: DULoxetine HCL 30 MG CAPSULE.DR PO SCH (16:43)
[2017-11-24] MEDS: METOPROLOL TARTRATE 12.5 MG TAB PO SCH (16:43)
[2017-11-24] MEDS: CHOLECALCIFEROL 1,000 UNIT TAB PO SCH (16:43)
[2017-11-24] MEDS: POTASSIUM CHLORIDE ER 20 MEQ TAB.ER PO SCH (16:44)
[2017-11-24] MEDS: RIVAROXABAN 20 MG TAB PO SCH (16:44)
[2017-11-24] MEDS: FERROUS SULFATE 325 MG TAB PO SCH (16:44)
[2017-11-24 17:14] LABS: Glucose,Whole Blood 227 mg/dL (75-99)
[2017-11-24] MEDS: methylPREDNISolone SOD SUCCI 125 MG/2 ML VIAL IV SCH (17:23)
[2017-11-24] MEDS: SYMBICORT 80-4.5 MCG INHALER INHALATION PRN (19:22)
[2017-11-24 20:32] LABS: Hemoglobin A1C 8.9 % (4.0-6.0)
[2017-11-24 20:34] LABS: Glucose,Whole Blood 324 mg/dL (75-99)
[2017-11-24] MEDS ORDERED: INSULIN DETEMIR 100 UNIT/ML 10 ML VIAL SQ SCH (21:00)
[2017-11-24] MEDS: NYSTATIN 100,000 UNIT/GM POWD 15 GM TOPICAL SCH (21:58)
[2017-11-24] MEDS: guaiFENesin 600 MG TABLET.ER PO SCH (21:58)
[2017-11-24] MEDS: PREGABALIN 100 MG CAP PO SCH (21:58)
[2017-11-25] MEDS: PIPERACILLIN-TAZOBACTAM 3.375 GM in DEXTROSE/WATER 1 50ML.BAG IVPB SCH ×4 (00:06→23:51)
[2017-11-25] MEDS: methylPREDNISolone SOD SUCCI 125 MG/2 ML VIAL IV SCH ×5 (00:07→22:42)
[2017-11-25] MEDS: SODIUM CHLORIDE 0.9% 1,000 ML IV SCH ×3 (04:05→17:20)
[2017-11-25] MEDS: LEVOTHYROXINE 100 MCG TAB PO SCH (06:16)
[2017-11-25] MEDS: PANTOPRAZOLE 40 MG TABLET PO SCH (06:18)
--- NOTE | 2017-11-25 06:18 | CONS ---
CONSULTATION DATE OF SERVICE: 11/24/2017. REASON FOR CONSULTATION: Pneumonia. HISTORY OF PRESENT ILLNESS: The patient is a 72-year-old female who has been brought into the ER by EMS. Apparently the patient has been progressively getting weak and weak over the last 3-4 days. The patient seems to have no energy getting up and walking around. The patient also has a cough which seemed to be congested getting a small amount of black sputum but no hemoptysis. The patient denies having any high-grade fever. Did have some chills. The patient denies having significant URI symptoms. The patient denies any nausea, no vomiting, no choking on food. No abdominal pain or any diarrhea. With these symptoms, the patient presented to the [facility] ER. Patient was evaluated by the ER physician. On arrival to the ER, the patient did have a low-grade fever of 99.2. The patient did have elevated white count 16.5. The patient did have a UA that was negative. The patient did have a chest x-ray which shows developing right upper lobe infiltrate, the patient has been started on the Levaquin and Zosyn and ID was consulted for further recommendation regarding antibiotic therapy. REVIEW OF SYSTEMS: CONSTITUTIONAL: Positive for weakness along with some chills. Eyes no complaint. ENT no complaint. Respiratory as per HPI. Cardiovascular: No complaint. Genitourinary no complaint. Gastrointestinal: No complaint. Musculoskeletal no complaint. Integumentary: Right leg wound but no worsening. Psychological no complaint. Endocrine no complaint. Neurological no complaint. PAST MEDICAL HISTORY: Significant for COPD, diabetes mellitus, DVT, hypertension, hyperlipidemia, pulmonary embolism, . PAST SURGICAL HISTORY: Significant for appendectomy, , cholecystectomy, splenectomy, carpal tunnel release, right bimalleolar fracture repair. SOCIAL HISTORY: Patient quit smoking back in 1993 after about 30 pack years of smoking. No drinking or drug use. FAMILY HISTORY: No pertinent findings noticed. ALLERGIES: TO IODINATED CONTRAST DYE. MEDICATIONS: Include the patient is currently on Zosyn, Protonix, Mycostatin powder, Lopressor, Solu- Medrol, Claritin, Tradjenta, Synthroid, Levaquin, Levemir and NovoLog, iron sulfate, Cymbalta, Flexeril, Klonopin, Symbicort, and Lipitor. PHYSICAL EXAMINATION: Blood pressure is 109/52 with a pulse of 90, temperature 98.7, she is 98% on 2 L nasal cannula. General description is an elderly female, lying in bed in no distress. No tachypnea or accessory muscles for respiration use. HEENT: Shows no pallor or scleral icterus. Oral mucosa membranes dry. No pharyngeal erythema or thrush. Neck: Trachea central. No thyromegaly. Lungs unlabored breathing. Coarse breath sounds at the bases. Heart S1, S2. Regular rate and rhythm. ABDOMEN: Soft, no tenderness. No guarding or rigidity. Extremities: No edema of the feet. Skin examination: No rash or mass palpable. Neurological: Patient is awake, alert, oriented times three. Mood and affect normal. LABS: Hemoglobin is 14.8, white count 16.5 with a BUN of 19, creatinine 0.80. Electrolytes have been normal. Liver enzymes are normal. Urine was negative. Chest x-ray report. DIAGNOSTIC IMPRESSION AND PLAN: Patient admitted to the hospital with fever, chills, elevated white count with developing right upper lobe infiltrate likely representing community acquired pneumonia with gram-negative pneumonia less likely but not entirely excluded and now suspicious for possible aspiration pneumonia. PLAN: 1. We will try to obtain sputum for Gram stain culture and sensitivity. 2. The patient will be continued on Zosyn 3.375 g q.8h in addition to the Levaquin that should provide adequate coverage of both with regard pathogen. 3. We will follow up on clinical condition and culture to further adjust medication if needed. Thank you for this consultation. We will follow this patient along with you. MMODL / IJN: [id number] /
[2017-11-25 07:05] LABS: Glucose,Whole Blood 264 mg/dL (75-99)
[2017-11-25] MEDS: SYMBICORT 80-4.5 MCG INHALER INHALATION PRN ×2 (08:18→19:12)
[2017-11-25] MEDS: IPRATROPIUM-ALBUTEROL 3 ML NEB INHALATION SCH ×4 (08:18→19:12)
[2017-11-25] MEDS: INSULIN ASPART 100 UNIT/ML 1 ML 10 ML VIAL SQ SCH ×7 (08:31→22:17)
[2017-11-25] MEDS: METOPROLOL TARTRATE 12.5 MG TAB PO SCH ×2 (08:44→17:22)
[2017-11-25] MEDS: DULoxetine HCL 30 MG CAPSULE.DR PO SCH ×2 (08:44→17:22)
[2017-11-25] MEDS: LINAGLIPTIN 5 MG TABLET PO SCH (08:44)
[2017-11-25] MEDS: ALLOPURINOL 100 MG TAB PO SCH (08:44)
[2017-11-25] MEDS: PREGABALIN 100 MG CAP PO SCH ×2 (08:45→22:15)
[2017-11-25] MEDS: guaiFENesin 600 MG TABLET.ER PO SCH ×2 (08:45→22:15)
[2017-11-25] MEDS: FUROSEMIDE 40 MG TAB PO SCH (08:45)
[2017-11-25] MEDS: LACTOBACILLUS ACIDOPH & BULGAR 1 EACH PACKET PO SCH (08:46)
[2017-11-25] MEDS: PANTOPRAZOLE 40 MG/10 ML VIAL IV SCH (08:47)
[2017-11-25] MEDS: SENNOSIDES-DOCUSATE SODIUM 1 EACH TAB PO SCH (08:48)
[2017-11-25 08:50] LABS: Anisocytosis Slight; Basophils % (A) 0 %; Eosinophils % (A) 0 %; HCT 47.3 % (34.0-46.0); Hypochromasia Moderate; Lymphocytes # (A) 1.3 k/uL (1.0-4.8); Lymphocytes % (A) 11 %; MCH 30.9 pg (25.0-35.0); MCHC 31.7 g/dL (31.0-37.0); MCV 97.8 fL (80.0-100.0); Macrocytosis Slight; Mean Platelet Volume 8.1; Monocytes # (A) 0.4 k/uL (0-1.0); Monocytes % (A) 3 %; Neutrophils # (A) 9.5 k/uL (1.3-7.7); Neutrophils % (A) 85 %; Platelet Count 240 k/uL (150-450); RBC 4.84 m/uL (3.80-5.40); RDW 16.7 % (11.5-15.5); WBC 11.2 k/uL (3.8-10.6)
[2017-11-25 08:57] LABS: Anion Gap 11 mmol/L; Blood Urea Nitrogen 18 mg/dL (7-17); Calcium 9.3 mg/dL (8.4-10.2); Carbon Dioxide 23 mmol/L (22-30); Chloride 107 mmol/L (98-107); Glucose 304 mg/dL (74-99); Potassium 4.7 mmol/L (3.5-5.1); Sodium 141 mmol/L (137-145)
[2017-11-25] MEDS: DICLOFENAC SODIUM GEL 100 GM TUBE TOPICAL SCH ×3 (08:58→22:19)
[2017-11-25] MEDS: COLLAGENASE 250 UNIT/GM OINTMENT 30 GM TUBE TOPICAL SCH (08:58)
[2017-11-25] MEDS ORDERED: MYRBETRIQ 50MG PO SCH (09:00)
[2017-11-25] MEDS: NYSTATIN 100,000 UNIT/GM POWD 15 GM TOPICAL SCH ×2 (09:00→22:20)
--- NOTE | 2017-11-25 09:32 | P.PN ---
Subjective Progress Note Date: 11/25/17 Patient feeling much better still wheezing short of breath, denies any fevers overnight. No acute events Objective - Vital Signs Vital signs: Vital Signs Temp 97.6 F 11/25/17 06:51 Pulse 90 11/25/17 08:30 Resp 16 11/25/17 08:18 BP 141/70 11/25/17 06:51 Pulse Ox 91 L 11/25/17 06:51 Intake & Output 11/24/17 11/25/17 11/25/17 18:59 06:59 18:59 Weight 109.316 kg Other: # Voids 2 - Exam Constitutional: No acute distress, conversant, pleasant Eyes: Anicteric sclerae, moist conjunctiva, no lid-lag, PERRLA ENMT: NC/AT,Oropharynx clear, no erythema, exudates Neck:Supple, FROM, no masses, or JVD, No carotid bruits; No thyromegaly Lungs: Improved aeration still coarse expiratory wheezes Clear to percussion, Normal respiratory effort, no accessory muscle use Cardiovascular: Heart regular in rate and rhythm, No murmurs, gallops, or rubs no peripheral edema Abdominal: Soft Nontender, nom distended, no guarding, no rebound or rigidity, Normoactive bowel sounds No hepatomegaly, No splenomegaly, No palpable mass No abdominal wall hernia noted Skin: Normal temperature, tone, texture, turgor, No induration No subcutaneous nodules, No rash, lesions, No ulcers Extremities:No digital cyanosis No clubbing, Pedal pulses intact and symmetrical Radial pulses intact and symmetrical Normal gait and station, No calf tenderness, Right lower extremity with small stage II ulceration. Appears clean with no drainage at this point in time. Psychiatric: Alert and oriented to person, place and time, Appropriate affect Intact judgement Neuro: Muscles Strength 5/5 in all 4 extremities, Sensation to light touch grossly present throughout, Cranial nerves II-XII grossly intact. No focal sensory deficits - Labs CBC & Chem 7: 11/25/17 08:04 11/25/17 08:04 Labs: Abnormal Lab Results - Last 24 Hours (Table) 11/24/17 11/24/17 11/24/17 Range/Units 09:32 09:32 09:32 WBC 16.5 H (3.8-10.6) k/uL Hct (34.0-46.0) % RDW 16.9 H (11.5-15.5) % Neutrophils # 13.3 H (1.3-7.7) k/uL PT 14.1 H (9.0-12.0) sec INR 1.5 H (<1.2) APTT 35.6 H (22.0-30.0) sec Sodium 136 L (137-145) mmol/L BUN 19 H (7-17) mg/dL Glucose 217 H (74-99) mg/dL POC Glucose (mg/dL) (75-99) mg/dL Hemoglobin A1c (4.0-6.0) % Total Creatine Kinase (30-135) U/L Total Protein 5.7 L (6.3-8.2) g/dL Albumin 3.0 L (3.5-5.0) g/dL 11/24/17 11/24/17 11/24/17 Range/Units 09:32 09:32 17:08 WBC (3.8-10.6) k/uL Hct (34.0-46.0) % RDW (11.5-15.5) % Neutrophils # (1.3-7.7) k/uL PT (9.0-12.0) sec INR (<1.2) APTT (22.0-30.0) sec Sodium (137-145) mmol/L BUN (7-17) mg/dL Glucose (74-99) mg/dL POC Glucose (mg/dL) 227 H (75-99) mg/dL Hemoglobin A1c 8.9 H (4.0-6.0) % Total Creatine Kinase 154 H (30-135) U/L Total Protein (6.3-8.2) g/dL Albumin (3.5-5.0) g/dL 11/24/17 11/25/17 11/25/17 Range/Units 20:31 07:03 08:04 WBC 11.2 H (3.8-10.6) k/uL Hct 47.3 H (34.0-46.0) % RDW 16.7 H (11.5-15.5) % Neutrophils # 9.5 H (1.3-7.7) k/uL PT (9.0-12.0) sec INR (<1.2) APTT (22.0-30.0) sec Sodium (137-145) mmol/L BUN (7-17) mg/dL Glucose (74-99) mg/dL POC Glucose (mg/dL) 324 H 264 H (75-99) mg/dL Hemoglobin A1c (4.0-6.0) % Total Creatine Kinase (30-135) U/L Total Protein (6.3-8.2) g/dL Albumin (3.5-5.0) g/dL 11/25/17 Range/Units 08:04 WBC (3.8-10.6) k/uL Hct (34.0-46.0) % RDW (11.5-15.5) % Neutrophils # (1.3-7.7) k/uL PT (9.0-12.0) sec INR (<1.2) APTT (22.0-30.0) sec Sodium (137-145) mmol/L BUN 18 H (7-17) mg/dL Glucose 304 H (74-99) mg/dL POC Glucose (mg/dL) (75-99) mg/dL Hemoglobin A1c (4.0-6.0) % Total Creatine Kinase (30-135) U/L Total Protein (6.3-8.2) g/dL Albumin (3.5-5.0) g/dL Microbiology - Last 24 Hours (Table) 11/24/17 10:06 Urine Culture - Preliminary Urine,Catheterized Assessment and Plan (1) Acute exacerbation of chronic obstructive airways disease Narrative/Plan: * Triggered by pneumonia * Continue with supplemental oxygen, systemic steroids IV Solu-Medrol, empiric antibiotics with scheduled and when necessary breathing treatments Current Visit: No Status: Acute Code(s): J44.1 - CHRONIC OBSTRUCTIVE PULMONARY DISEASE W (ACUTE) EXACERBATION SNOMED Code(s): 887169431 (2) Sepsis Narrative/Plan: * Secondary to pneumonia * Afebrile overnight leukocytosis trending down from 16-11 * Continue with current antibiotic regimen with Levaquin and Zosyn appreciated ID recommendations Current Visit: Yes Status: Acute Code(s): A41.9 - SEPSIS, UNSPECIFIED ORGANISM SNOMED Code(s): 72142828 (3) Pneumonia Narrative/Plan: * Antibiotic regimen as above Current Visit: Yes Status: Acute Code(s): J18.9 - PNEUMONIA, UNSPECIFIED ORGANISM SNOMED Code(s): 362294298 (4) Type 2 diabetes mellitus with hyperglycemia Narrative/Plan: * A1c 8.9 with elevated blood sugars 227 -324 * Increase basal insulin 30 units at night and pre-meal insulin to 10 units every before meals and continue correctional scale insulin Current Visit: Yes Status: Acute Code(s): E11.65 - TYPE 2 DIABETES MELLITUS WITH HYPERGLYCEMIA SNOMED Code(s): 253102686915765 (5) Ulcer of right leg Narrative/Plan: * Appreciate dressing changes and wound care recommendations Current Visit: Yes Status: Acute Code(s): L97.919 - NON-PRS CHRONIC ULC UNSP PRT OF R LOW LEG W UNSP SEVERITY SNOMED Code(s): 57571360 Plan: Disposition patient showing some improvement Continue IV antibiotics, steroids and breathing treatments Anticipate discharge in 2 days
[2017-11-25] MEDS: LEVOFLOXACIN 750MG-D5W PMX 750 MG in DEXTROSE/WATER 1 150ML.BAG IVPB SCH (11:20)
[2017-11-25 11:58] LABS: Glucose,Whole Blood 353 mg/dL (75-99)
[2017-11-25 17:06] LABS: Glucose,Whole Blood 356 mg/dL (75-99)
[2017-11-25] MEDS: CHOLECALCIFEROL 1,000 UNIT TAB PO SCH (17:22)
[2017-11-25] MEDS: ATORVASTATIN 40 MG TAB PO SCH (17:22)
[2017-11-25] MEDS: ASPIRIN 81 MG PO SCH (17:22)
[2017-11-25] MEDS: POTASSIUM CHLORIDE ER 20 MEQ TAB.ER PO SCH (17:23)
[2017-11-25] MEDS: RIVAROXABAN 20 MG TAB PO SCH (17:23)
[2017-11-25] MEDS: FERROUS SULFATE 325 MG TAB PO SCH (17:23)
--- NOTE | 2017-11-25 20:37 | XR ---
EXAMINATION TYPE: XR chest 2V DATE OF EXAM: 11/25/2017 COMPARISON: 11/24/2017 HISTORY: 72-year-old female follow-up pneumonia TECHNIQUE: Frontal and lateral views FINDINGS: The heart is upper limits of normal in size. Similar prominence to the superior mediastinum which see ms to correspond to prominent mediastinal fat when correlating with the 09/14/2017 CT. Diffuse interst itial prominence is unchanged. Airspace opacity is improving at the right upper lobe. Degenerative ch anges of both shoulders. No significant pleural effusion. IMPRESSION: COPD with improving, residual right upper lobe pneumonia.
[2017-11-25 20:40] LABS: Glucose,Whole Blood 389 mg/dL (75-99)
[2017-11-25] MEDS ORDERED: INSULIN DETEMIR 100 UNIT/ML 10 ML VIAL SQ SCH (21:00)
--- NOTE | 2017-11-25 23:09 | PN ---
PROGRESS NOTE DATE OF SERVICE: 11/25/2017. REASON FOR FOLLOWUP VISIT: 1. Pneumonia. 2. Right leg wound. INTERVAL HISTORY: The patient is currently afebrile. Her breathing has improved. She did have a cough but not bringing up any sputum. No chest pain. No abdominal pain and no pain described in the leg wound area. EXAMINATION: Blood pressure 132/70 with a pulse of 100, temperature 98.4. She is 93% on 2 L nasal cannula. General description is an elderly female, lying in bed in no distress. Respiratory system: Unlabored breathing with decreased breath sounds. No wheeze. Heart S1, S2. Regular rate and rhythm. Abdomen soft. No tenderness. Right lateral leg wound currently with no evidence of any cellulitis. DIAGNOSTIC IMPRESSION AND PLAN: Patient admitted to the hospital with weakness, fever, and did have a cough with concern for underlying pneumonia, more likely community-acquired. The patient showed clinical improvement today and white count has come down. She will continue on the Zosyn and Levaquin while waiting for the culture to finalize and I will try to obtain a sputum. Continue supportive care. MMODL / IJN: [id number] /
[2017-11-26] MEDS: methylPREDNISolone SOD SUCCI 125 MG/2 ML VIAL IV SCH ×3 (06:14→17:36)
[2017-11-26] MEDS: LEVOTHYROXINE 100 MCG TAB PO SCH (06:14)
[2017-11-26] MEDS: SODIUM CHLORIDE 0.9% 1,000 ML IV SCH ×2 (06:15→09:38)
[2017-11-26 07:22] LABS: Glucose,Whole Blood 238 mg/dL (75-99)
[2017-11-26] MEDS: IPRATROPIUM-ALBUTEROL 3 ML NEB INHALATION SCH ×4 (07:37→20:44)
[2017-11-26] MEDS: INSULIN ASPART 100 UNIT/ML 1 ML 10 ML VIAL SQ SCH ×7 (07:40→21:05)
[2017-11-26] MEDS: PREGABALIN 100 MG CAP PO SCH ×2 (07:40→21:30)
[2017-11-26] MEDS: PANTOPRAZOLE 40 MG TABLET PO SCH (07:42)
[2017-11-26] MEDS: LINAGLIPTIN 5 MG TABLET PO SCH (07:42)
[2017-11-26] MEDS: guaiFENesin 600 MG TABLET.ER PO SCH ×2 (07:42→21:08)
[2017-11-26] MEDS: ALLOPURINOL 100 MG TAB PO SCH (07:42)
[2017-11-26] MEDS: METOPROLOL TARTRATE 12.5 MG TAB PO SCH ×2 (07:42→17:36)
[2017-11-26] MEDS: SYMBICORT 80-4.5 MCG INHALER INHALATION PRN ×2 (07:43→20:44)
[2017-11-26] MEDS: DULoxetine HCL 30 MG CAPSULE.DR PO SCH ×2 (07:43→17:36)
[2017-11-26] MEDS: CHOLECALCIFEROL 1,000 UNIT TAB PO SCH (07:43)
[2017-11-26] MEDS: FUROSEMIDE 40 MG TAB PO SCH (07:43)
[2017-11-26] MEDS: MIRABEGRON PO SCH (07:44)
[2017-11-26] MEDS: SENNOSIDES-DOCUSATE SODIUM 1 EACH TAB PO SCH (07:50)
[2017-11-26] MEDS: COLLAGENASE 250 UNIT/GM OINTMENT 30 GM TUBE TOPICAL SCH (07:50)
[2017-11-26] MEDS: PANTOPRAZOLE 40 MG/10 ML VIAL IV SCH (07:50)
[2017-11-26] MEDS: LACTOBACILLUS ACIDOPH & BULGAR 1 EACH PACKET PO SCH (07:50)
[2017-11-26] MEDS: DICLOFENAC SODIUM GEL 100 GM TUBE TOPICAL SCH ×3 (07:50→21:08)
[2017-11-26] MEDS: NYSTATIN 100,000 UNIT/GM POWD 15 GM TOPICAL SCH ×2 (07:51→21:10)
[2017-11-26] MEDS: LEVOFLOXACIN 750MG-D5W PMX 750 MG in DEXTROSE/WATER 1 150ML.BAG IVPB SCH (07:53)
[2017-11-26] MEDS: LORATADINE 10 MG TAB PO PRN (08:10)
[2017-11-26] MEDS: PIPERACILLIN-TAZOBACTAM 3.375 GM in DEXTROSE/WATER 1 50ML.BAG IVPB SCH ×2 (09:36→15:39)
--- NOTE | 2017-11-26 10:43 | P.PN ---
Subjective Progress Note Date: 11/26/17 Patient feeling much better still wheezing short of breath, denies any fevers overnight. Having ongoing hyperglycemia patient reports that she was taking 70 of Lantus at bedtime. Afebrile overnight no acute events Objective - Vital Signs Vital signs: Vital Signs Temp 97.2 F L 11/26/17 06:00 Pulse 104 H 11/26/17 07:35 Resp 16 11/26/17 06:00 BP 138/63 11/26/17 06:00 Pulse Ox 93 L 11/26/17 06:00 Intake & Output 11/25/17 11/26/17 11/26/17 18:59 06:59 18:59 Intake Total 1200 Balance 1200 Intake: Oral 1200 Other: Voiding Method Bedside Commode Bedside Commode Bedside Commode # Voids 1 4 - Exam Constitutional: No acute distress, conversant, pleasant Eyes: Anicteric sclerae, moist conjunctiva, no lid-lag, PERRLA ENMT: NC/AT,Oropharynx clear, no erythema, exudates Neck:Supple, FROM, no masses, or JVD, No carotid bruits; No thyromegaly Lungs: Improved aeration still coarse expiratory wheezes Clear to percussion, Normal respiratory effort, no accessory muscle use Cardiovascular: Heart regular in rate and rhythm, No murmurs, gallops, or rubs no peripheral edema Abdominal: Soft Nontender, nom distended, no guarding, no rebound or rigidity, Normoactive bowel sounds No hepatomegaly, No splenomegaly, No palpable mass No abdominal wall hernia noted Skin: Normal temperature, tone, texture, turgor, No induration No subcutaneous nodules, No rash, lesions, No ulcers Extremities:No digital cyanosis No clubbing, Pedal pulses intact and symmetrical Radial pulses intact and symmetrical Normal gait and station, No calf tenderness, Right lower extremity with small stage II ulceration. Appears clean with no drainage at this point in time. Psychiatric: Alert and oriented to person, place and time, Appropriate affect Intact judgement Neuro: Muscles Strength 5/5 in all 4 extremities, Sensation to light touch grossly present throughout, Cranial nerves II-XII grossly intact. No focal sensory deficits - Labs CBC & Chem 7: 11/25/17 08:04 11/25/17 08:04 Labs: Abnormal Lab Results - Last 24 Hours (Table) 11/25/17 11/25/1718 Range/Units 11:54 17:01 20:35 POC Glucose (mg/dL) 353 H 356 H 389 H (75-99) mg/dL 11/26/17 Range/Units 07:20 POC Glucose (mg/dL) 238 H (75-99) mg/dL Microbiology - Last 24 Hours (Table) 11/25/17 11:20 Nasal Screen MRSA/MSSA (LETTY) - Preliminary Nasal Swab 11/24/17 09:32 Blood Culture - Preliminary Blood No Growth after 24 hours 11/24/17 10:06 Urine Culture - Final Urine,Catheterized Assessment and Plan (1) Acute exacerbation of chronic obstructive airways disease Narrative/Plan: * Triggered by pneumonia * Continue with supplemental oxygen, systemic steroids IV Solu-Medrol, empiric antibiotics with scheduled and when necessary breathing treatments Current Visit: No Status: Acute Code(s): J44.1 - CHRONIC OBSTRUCTIVE PULMONARY DISEASE W (ACUTE) EXACERBATION SNOMED Code(s): 348877144 (2) Sepsis Narrative/Plan: * Secondary to pneumonia * Afebrile overnight leukocytosis trending down from 16-11 * Continue with current antibiotic regimen with Levaquin and Zosyn appreciated ID recommendations Current Visit: Yes Status: Acute Code(s): A41.9 - SEPSIS, UNSPECIFIED ORGANISM SNOMED Code(s): 51903590 (3) Pneumonia Narrative/Plan: * Antibiotic regimen as above Current Visit: Yes Status: Acute Code(s): J18.9 - PNEUMONIA, UNSPECIFIED ORGANISM SNOMED Code(s): 467440514 (4) Type 2 diabetes mellitus with hyperglycemia Narrative/Plan: * A1c 8.9 with elevated blood sugars 227 -324 * Increase basal insulin 35 units q12 and pre-meal insulin to 10 units every before meals and continue correctional scale insulin Current Visit: Yes Status: Acute Code(s): E11.65 - TYPE 2 DIABETES MELLITUS WITH HYPERGLYCEMIA SNOMED Code(s): 442467150730951 (5) Ulcer of right leg Narrative/Plan: * Appreciate dressing changes and wound care recommendations Current Visit: Yes Status: Acute Code(s): L97.919 - NON-PRS CHRONIC ULC UNSP PRT OF R LOW LEG W UNSP SEVERITY SNOMED Code(s): 51138837 Plan: Continue with IV antibiotics and steroids LIKELY transition to oral steroids tomorrow anticipate discharge in 1-2 days
[2017-11-26 11:31] LABS: Anion Gap 11 mmol/L; Blood Urea Nitrogen 16 mg/dL (7-17); Calcium 8.7 mg/dL (8.4-10.2); Carbon Dioxide 24 mmol/L (22-30); Chloride 102 mmol/L (98-107); Glucose 425 mg/dL (74-99); Potassium 3.4 mmol/L (3.5-5.1); Sodium 137 mmol/L (137-145)
[2017-11-26 11:38] LABS: Anisocytosis Slight; Basophils % (A) 0 %; Eosinophils % (A) 0 %; HGB 14.3 gm/dL (11.4-16.0); Hypochromasia Slight; Lymphocytes # (A) 1.2 k/uL (1.0-4.8); Lymphocytes % (A) 12 %; MCH 30.7 pg (25.0-35.0); MCHC 31.7 g/dL (31.0-37.0); MCV 96.8 fL (80.0-100.0); Macrocytosis Slight; Mean Platelet Volume 7.6; Monocytes # (A) 0.5 k/uL (0-1.0); Monocytes % (A) 5 %; Neutrophils # (A) 7.9 k/uL (1.3-7.7); Neutrophils % (A) 82 %; Platelet Count 253 k/uL (150-450); RBC 4.64 m/uL (3.80-5.40); RDW 17.2 % (11.5-15.5); WBC 9.7 k/uL (3.8-10.6)
[2017-11-26 11:55] LABS: Glucose,Whole Blood 338 mg/dL (75-99)
[2017-11-26] MEDS: INSULIN DETEMIR 100 UNIT/ML 10 ML VIAL SQ SCH ×2 (11:55→21:05)
[2017-11-26] MEDS: RIVAROXABAN 20 MG TAB PO SCH (15:39)
[2017-11-26] MEDS: FERROUS SULFATE 325 MG TAB PO SCH (15:39)
[2017-11-26] MEDS: ASPIRIN 81 MG PO SCH (15:39)
[2017-11-26] MEDS: POTASSIUM CHLORIDE ER 20 MEQ TAB.ER PO SCH (15:39)
[2017-11-26] MEDS: ATORVASTATIN 40 MG TAB PO SCH (15:39)
[2017-11-26 16:51] LABS: Glucose,Whole Blood 333 mg/dL (75-99)
[2017-11-26 21:02] LABS: Glucose,Whole Blood 236 mg/dL (75-99)
[2017-11-27] MEDS: PIPERACILLIN-TAZOBACTAM 3.375 GM in DEXTROSE/WATER 1 50ML.BAG IVPB SCH ×2 (00:06→08:48)
[2017-11-27] MEDS: methylPREDNISolone SOD SUCCI 125 MG/2 ML VIAL IV SCH ×2 (00:06→06:16)
--- NOTE | 2017-11-27 00:16 | PN ---
PROGRESS NOTE DATE OF SERVICE: 11/26/2017. REASON FOR FOLLOWUP: Pneumonia, likely community-acquired. INTERVAL HISTORY: The patient is afebrile. She has been feeling better. Her breathing has improved. The cough has decreased in intensity. Denies having any chest pain. No abdominal pain. No diarrhea. EXAMINATION: Her blood pressure is 132/60 with a pulse of 90, temperature 98, saturating 92% on 3 L nasal cannula. GENERAL DESCRIPTION: An elderly female, lying in bed in no distress. RESPIRATORY SYSTEM: Unlabored breathing. Clear to auscultation anteriorly. HEART: S1, S2 regular rate and rhythm. ABDOMEN: Soft, no tenderness. LABS: Hemoglobin is 14.8, white count 9.7 with a BUN of 16, creatinine 0.60. Blood culture has been negative. DIAGNOSTIC IMPRESSION AND PLAN: Patient admitted to the hospital with fever, source is likely pneumonia. Patient at this time is on Zosyn and Levaquin with the plan to finish therapy with p.o. Ceftin 5 mg twice a day for another week. Continue supportive care. CAMILLAL / LINN: [id number] /
[2017-11-27] MEDS: LEVOTHYROXINE 100 MCG TAB PO SCH (06:16)
[2017-11-27 06:57] LABS: Glucose,Whole Blood 211 mg/dL (75-99)
[2017-11-27] MEDS: INSULIN ASPART 100 UNIT/ML 1 ML 10 ML VIAL SQ SCH ×2 (07:37)
[2017-11-27] MEDS: PANTOPRAZOLE 40 MG TABLET PO SCH (07:37)
[2017-11-27 07:53] LABS: Anion Gap 13 mmol/L; Blood Urea Nitrogen 15 mg/dL (7-17); Calcium 9.1 mg/dL (8.4-10.2); Carbon Dioxide 26 mmol/L (22-30); Chloride 101 mmol/L (98-107); Glucose 261 mg/dL (74-99); Potassium 3.7 mmol/L (3.5-5.1); Sodium 140 mmol/L (137-145)
[2017-11-27] MEDS: ALLOPURINOL 100 MG TAB PO SCH (08:40)
[2017-11-27] MEDS: DICLOFENAC SODIUM GEL 100 GM TUBE TOPICAL SCH (08:41)
[2017-11-27] MEDS: NYSTATIN 100,000 UNIT/GM POWD 15 GM TOPICAL SCH (08:41)
[2017-11-27] MEDS: guaiFENesin 600 MG TABLET.ER PO SCH (08:42)
[2017-11-27] MEDS: FUROSEMIDE 40 MG TAB PO SCH (08:42)
[2017-11-27] MEDS: DULoxetine HCL 30 MG CAPSULE.DR PO SCH (08:42)
[2017-11-27] MEDS: LACTOBACILLUS ACIDOPH & BULGAR 1 EACH PACKET PO SCH (08:43)
[2017-11-27] MEDS: INSULIN DETEMIR 100 UNIT/ML 10 ML VIAL SQ SCH (08:43)
[2017-11-27] MEDS: LINAGLIPTIN 5 MG TABLET PO SCH (08:45)
[2017-11-27] MEDS: MIRABEGRON PO SCH (08:45)
[2017-11-27] MEDS: SENNOSIDES-DOCUSATE SODIUM 1 EACH TAB PO SCH (08:46)
[2017-11-27] MEDS: PREGABALIN 100 MG CAP PO SCH (08:46)
[2017-11-27] MEDS: METOPROLOL TARTRATE 12.5 MG TAB PO SCH (08:47)
[2017-11-27] MEDS: COLLAGENASE 250 UNIT/GM OINTMENT 30 GM TUBE TOPICAL SCH (08:49)
[2017-11-27] MEDS: LORATADINE 10 MG TAB PO PRN (08:56)
[2017-11-27] MEDS ORDERED: predniSONE 20 MG TAB PO SCH (09:00)
[2017-11-27 09:03] VITALS: BP 146/78; RESP 20; TEMP 98.2
[2017-11-27 09:05] LABS: Anisocytosis Slight; Basophils % (A) 0 %; Eosinophils % (A) 0 %; HCT 50.3 % (34.0-46.0); HGB 15.6 gm/dL (11.4-16.0); Hypochromasia Slight; Lymphocytes # (A) 1.3 k/uL (1.0-4.8); Lymphocytes % (A) 18 %; MCH 30.2 pg (25.0-35.0); MCV 97.4 fL (80.0-100.0); Macrocytosis Slight; Monocytes # (A) 0.3 k/uL (0-1.0); Monocytes % (A) 5 %; Neutrophils # (A) 5.5 k/uL (1.3-7.7); Neutrophils % (A) 75 %; Platelet Count 247 k/uL (150-450); RBC 5.16 m/uL (3.80-5.40); RDW 17.2 % (11.5-15.5); WBC 7.3 k/uL (3.8-10.6)
[2017-11-27] MEDS: IPRATROPIUM-ALBUTEROL 3 ML NEB INHALATION SCH (09:14)
[2017-11-27] MEDS: SYMBICORT 80-4.5 MCG INHALER INHALATION PRN (09:14)
[2017-11-27 09:18] VITALS: PULSE 92
[2017-11-27] MEDS: LEVOFLOXACIN 750MG-D5W PMX 750 MG in DEXTROSE/WATER 1 150ML.BAG IVPB SCH (10:22)
[2017-11-27] MEDS ORDERED: CEFDINIR 300 MG CAP PO STA (10:53)
--- NOTE | 2017-11-27 11:00 | P.DS ---
Providers Date of admission: 11/24/17 11:13 Expected date of discharge: 11/27/17 Attending physician: Denver Wilson MD Consults: 11/24/17 12:17 Consult Physician Routine Consulting Provider: Rusty Merino Consult Reason/Comments: Leg ulcer Do you want consulting provider notified?: Yes 11/24/17 12:21 Consult Physician Routine Consulting Provider: Aditya Ramos Consult Reason/Comments: Sepsis Do you want consulting provider notified?: Already Contacted Primary care physician: Patric Richard - Discharge Diagnosis(es) (1) Sepsis Status: Acute (2) Pneumonia Status: Acute (3) Acute exacerbation of chronic obstructive airways disease Status: Acute (4) Acute respiratory failure with hypoxia Status: Acute (5) Diabetes mellitus Status: Acute (6) Diabetic ulcer of lower leg Status: Acute (7) Morbid obesity Status: Acute (8) Rheumatoid arthritis Status: Acute (9) HLD (hyperlipidemia) Status: Acute (10) Hypertension Status: Acute Hospital Course: Patient is a 72-year-old female with a past medical history of COPD, diabetes, hypertension, dyslipidemia, and rheumatoid arthritis who initially presented to the hospital with complaints of fatigue, weakness, dysuria, and any further concerns for UTI. She also reported a productive cough and wheezing. In the ER she was noted to be in respiratory distress and required supplemental oxygen. She underwent an extensive evaluation was found have an elevated white blood cell count of 16.5, blood sugar of 217, and a chest x-ray showed developing right upper lobe infiltrate. EKG showed a heart rate of 100. She was started on IV antibiotics, bronchodilators, and arrangements were made for admission for further care of pneumonia with sepsis. Sputum and blood cultures were ordered. ID was consulted. Her home insulin regimen was adjusted and her hemoglobin A1c came back at 8.9. Her insulin was adjusted daily during hospitalization due to hyperglycemia. Patient reports that her last A1C was 7, current A1C 8.9, has been monitoring blood sugar at home and states no recent sugars over 150. Insistent that blood sugars are well controlled. Will follow with Dr. Richard regarding need for insulin adjustment. She was seen by Dr. Alvarez team who recommended continuing her home wound care regiment and continued outpatient follow-up. Seen by Infectious who recommend zosyn and levaquin. He WBC count quickly improved buy the morning after admission and had normalized on 11/26. ID recommended completing a course of ceftin for 7 additional days. Her symptoms had greatly improved and she was feeling that she would be able to manage at home. She was still requiring O2 as her room air resting pulse Ox was 88% and this prescribed for her. She will complete a 5 additional days of prednisone therapy as well as her Ceftin. She will follow-up with Dr. Small one week to to her new need for oxygen, Dr. Richard on November 29, and Dr. Alvarez on November 28. Patient seen and examined at bedside. States that she is feeling much better. Shortness of breath is resolved. She has more energy again. Her cough is improving. Wants to go home. Had a long discussion regarding her insulin regimen as outlined above. Patient states that she has been having blood sugars in the 150s using 70 units of Lantus at night. She has been following closely with Dr. Richard. She does not know how her A1c to be 8.9 minutes of this just Ceftin. She will continue to follow with him as outpatient. Vital signs reviewed and stable. General: non toxic, no distress, appears at stated age, obese Derm: warm, dry Head: atraumatic, normocephalic, symmetric Eyes: EOMI, no lid lag, anicteric sclera Mouth: no lip lesion, mucus membranes moist Cardiovascular: S1S2 reg, no murmur, positive posterior tibial pulse bilateral, Lungs: Decreased breath sounds bilateral bases, no rhonchi, no rales , no accessory muscle use Abdominal: soft, nontender to palpation, no guarding, no appreciable organomegaly Ext: no gross muscle atrophy, no edema, no contractures Neuro: CN II-XI grossly intact, no focal neuro deficits Psych: Alert, oriented, appropriate affect A total of 37 minutes of time were spent preparing this complex discharge summary . Pertinent Studies: Chest x-ray 11/25-COPD improving residual right upper lobe pneumonia Chest x-ray 11/24 right upper lobe pneumonia Patient Condition at Discharge: Stable Plan - Discharge Summary Discharge Rx Participant: No New Discharge Prescriptions: New Cefuroxime Axetil [Ceftin] 500 mg PO BID #13 tab guaiFENesin [Mucinex] 600 mg PO Q12HR tablet.er predniSONE 60 mg PO DAILY 5 Days #15 tab Continue sitaGLIPtin [Januvia] 100 mg PO DAILY@0800 rOPINIRole HCL [Requip] 3 mg PO HS@2100 DULoxetine HCL [Cymbalta] 30 mg PO BID@0800,1700 Rivaroxaban [Xarelto] 20 mg PO DAILY@1700 Omeprazole [PriLOSEC] 20 mg PO DAILY@0700 Allopurinol [Zyloprim] 100 mg PO DAILY@0800 Levothyroxine Sodium [Synthroid] 100 mcg PO DAILY Insulin Lispro [humaLOG Kwikpen] See Protocol SQ ACHS Atorvastatin [Lipitor] 40 mg PO DAILY@1700 Pregabalin [Lyrica] 200 mg PO BID@0800,2100 Potassium Chloride ER [K-Dur 20] 20 meq PO DAILY@1700 Polyethylene Glycol 3350 [Miralax] 17 gm PO DAILY PRN PRN Reason: Constipation L.acidoph,Paracasei, B.lactis [Probiotic] 1 cap PO DAILY Glucerna Shake 1 can PO HS Ferrous Sulfate [Feosol] 325 mg PO W/SUPPER Cyclobenzaprine [Flexeril] 5 mg PO TID PRN PRN Reason: Muscle Spasm Cholecalciferol (Vitamin D3) [Vitamin D3] 2,000 unit PO DAILY@1700 Budesonide/Formoterol Fumarate [Symbicort 80-4.5 Mcg Inhaler] 2 puff INHALATION RT-BID PRN PRN Reason: Shortness Of Breath Amino Acids/Protein Hydrolys [Pro-Stat Supplement] 30 ml PO DAILY@1700 Acetaminophen Tab [Tylenol] 650 mg PO Q6H PRN PRN Reason: Pain Or Fever > 100.5 Ondansetron [Zofran] 4 mg PO Q8HR PRN PRN Reason: Nausea Albuterol Inhaler [Ventolin Hfa Inhaler] 2 puff INHALATION RT-Q4H PRN PRN Reason: Shortness Of Breath Sennosides/Docusate Sodium [Shayy Colace] 2 tab PO DAILY Insulin Lispro [humaLOG Kwikpen] 6 unit SQ AC-TID Mirabegron [Myrbetriq] 50 mg PO DAILY Miconazole Nitrate [Lotrimin AF Powder] 1 applic TOPICAL BID Collagenase [Santyl] 1 applic TOPICAL DAILY Aspirin EC [Ecotrin Low Dose] 81 mg PO DAILY@1700 Furosemide [Lasix] 40 mg PO DAILY #30 tablet HYDROcodone/APAP 10-325MG [Voorhees 10-325] 1 tab PO Q4HR PRN #20 tab PRN Reason: Pain clonazePAM [KlonoPIN] 0.25 mg PO Q12H PRN PRN Reason: Anxiety Cranberry 425 Cap 425 mg PO W/SUPPER Cranberry Fruit Concentrate [Azo Cranberry] 500 mg PO TID PRN PRN Reason: UTI Diclofenac Sodium [Voltaren Gel] 2 gram TOPICAL TID Loratadine [Claritin] 10 mg PO DAILY PRN PRN Reason: Allergy Symptoms Metoprolol Tartrate [Lopressor] 12.5 mg PO BID@0800,1700 Changed Insulin Detemir [Levemir] 70 unit SQ HS #0 Discharge Medication List sitaGLIPtin [Januvia] 100 mg PO DAILY@0800 10/09/13 [History] DULoxetine HCL [Cymbalta] 30 mg PO BID@0800,1700 11/27/15 [History] rOPINIRole HCL [Requip] 3 mg PO HS@2100 11/27/15 [History] Rivaroxaban [Xarelto] 20 mg PO DAILY@1700 05/12/16 [History] Allopurinol [Zyloprim] 100 mg PO DAILY@0800 09/20/16 [History] Levothyroxine Sodium [Synthroid] 100 mcg PO DAILY 09/20/16 [History] Omeprazole [PriLOSEC] 20 mg PO DAILY@0700 09/20/16 [History] Atorvastatin [Lipitor] 40 mg PO DAILY@1700 05/02/17 [History] Insulin Lispro [humaLOG Kwikpen] See Protocol SQ ACHS 05/02/17 [History] Acetaminophen Tab [Tylenol] 650 mg PO Q6H PRN 08/03/17 [History] Amino Acids/Protein Hydrolys [Pro-Stat Supplement] 30 ml PO DAILY@1700 08/03/17 [History] Budesonide/Formoterol Fumarate [Symbicort 80-4.5 Mcg Inhaler] 2 puff INHALATION RT-BID PRN 08/03/17 [History] Cholecalciferol (Vitamin D3) [Vitamin D3] 2,000 unit PO DAILY@1700 08/03/17 [ History] Cyclobenzaprine [Flexeril] 5 mg PO TID PRN 08/03/17 [History] Ferrous Sulfate [Feosol] 325 mg PO W/SUPPER 08/03/17 [History] Glucerna Shake 1 can PO HS 08/03/17 [History] L.acidoph,Paracasei, B.lactis [Probiotic] 1 cap PO DAILY 08/03/17 [History] Polyethylene Glycol 3350 [Miralax] 17 gm PO DAILY PRN 08/03/17 [History] Potassium Chloride ER [K-Dur 20] 20 meq PO DAILY@1700 08/03/17 [History] Pregabalin [Lyrica] 200 mg PO BID@0800,2100 08/03/17 [History] Albuterol Inhaler [Ventolin Hfa Inhaler] 2 puff INHALATION RT-Q4H PRN 09/07/17 [ History] Insulin Lispro [humaLOG Kwikpen] 6 unit SQ AC-TID 09/07/17 [History] Mirabegron [Myrbetriq] 50 mg PO DAILY 09/07/17 [History] Ondansetron [Zofran] 4 mg PO Q8HR PRN 09/07/17 [History] Sennosides/Docusate Sodium [Shayy Colace] 2 tab PO DAILY 09/07/17 [History] Aspirin EC [Ecotrin Low Dose] 81 mg PO DAILY@1700 09/13/17 [History] Collagenase [Santyl] 1 applic TOPICAL DAILY 09/13/17 [History] Miconazole Nitrate [Lotrimin AF Powder] 1 applic TOPICAL BID 09/13/17 [History] Furosemide [Lasix] 40 mg PO DAILY #30 tablet 09/16/17 [Rx] HYDROcodone/APAP 10-325MG [Voorhees 10-325] 1 tab PO Q4HR PRN #20 tab 09/18/17 [Rx] Cranberry 425 Cap 425 mg PO W/SUPPER 11/24/17 [History] Cranberry Fruit Concentrate [Azo Cranberry] 500 mg PO TID PRN 11/24/17 [History] Diclofenac Sodium [Voltaren Gel] 2 gram TOPICAL TID 11/24/17 [History] Loratadine [Claritin] 10 mg PO DAILY PRN 11/24/17 [History] Metoprolol Tartrate [Lopressor] 12.5 mg PO BID@0800,1700 11/24/17 [History] clonazePAM [KlonoPIN] 0.25 mg PO Q12H PRN 11/24/17 [History] Cefuroxime Axetil [Ceftin] 500 mg PO BID #13 tab 11/27/17 [Rx] Insulin Detemir [Levemir] 70 unit SQ HS #0 11/27/17 [Rx] guaiFENesin [Mucinex] 600 mg PO Q12HR tablet.er 11/27/17 [Rx] predniSONE 60 mg PO DAILY 5 Days #15 tab 11/27/17 [Rx] Follow up Appointment(s)/Referral(s): Shahid Rosas MD [STAFF PHYSICIAN] - 12/08/17 1:00 pm [facility], [NON-STAFF] - Patric Richard MD [Primary Care Provider] - 11/29/17 1:30 pm [facility] [NON-[facility]] - 11/28/17 9:45 am (continue with follow up with Dr Alvarez ) Aditya Ramos MD [STAFF PHYSICIAN] - 1 Week Activity/Diet/Wound Care/Special Instructions: continue consistent carb diet. fluids encouraged. Use 2L oxygen daily at home. next dressing change is scheduled tomorrow 11/28/2017. opticel AG, 4x4, EMIR from toes to knee Q3 days to Right Foot Ulcer. activities as tolerated. Finish antibiotic in its entirety. Continue probiotic. Finish and follow directions for prednisone taper. Call physician with any questions comments concerns, returning or worsening symptoms (fever 101.1 or higher, shortness of breath, trouble breathing). Discharge Disposition: HOME WITH HOME HEALTH SERVICES
[2017-11-27 11:01] LABS: Poikilocytosis (M) Present; Target Cells Present
--- NOTE | 2017-11-27 12:59 | PN ---
PROGRESS NOTE DATE OF SERVICE: 11/27/2017 REASON FOR FOLLOWUP: Pneumonia. INTERVAL HISTORY: The patient overall feels better and has improved. The patient denies significant chest pain. Breathing has improved, very minimal cough, not bringing up any sputum. Patient denies having any abdominal pain and no diarrhea. PHYSICAL EXAMINATION: Blood pressure 146/70 with a pulse of 97, temperature 98.2, she is 92% on 3 L nasal cannula. General description is an elderly female, up in the chair in no distress. RESPIRATORY SYSTEM: Unlabored breathing with decreased breath sounds, no wheeze. HEART: S1, S2. Regular rate and rhythm. ABDOMEN: Soft, no tenderness. LABS: Hemoglobin is 15, white count of 7.3, BUN of 15, creatinine 0.63. Blood culture has been negative. DIAGNOSTIC IMPRESSION AND PLAN: Patient admitted to the hospital with fever and cough, likely pneumonia likely community-acquired. The patient has shown overall clinical improvement on the current antibiotic with the plan to finish therapy with p.o. Ceftin twice a day for one week with close outpatient followup. MMBUBBAL / LINN: [id number] /
== END 2017-11-27 12:12 | disposition home health service (06) | DRG 871 ==
LOC: EC 08:58 → 5MS5E 11:13 → 4MS4W 12:07 → 6PED 11-26 18:30
PROVIDERS: ADMIT Family Medicine; ATTEND Family Medicine
DX: A41.9 Sepsis, unspecified organism (principal); J18.9 Pneumonia, unspecified organism; J96.01 Acute respiratory failure with hypoxia; J44.0 Chronic obstructive pulmonary disease with (acute) lower respiratory infection; J44.1 Chronic obstructive pulmonary disease with (acute) exacerbation; Z68.42 Body mass index [BMI] 45.0-49.9, adult; L97.312 Non-pressure chronic ulcer of right ankle with fat layer exposed; E66.01 Morbid (severe) obesity due to excess calories; E11.65 Type 2 diabetes mellitus with hyperglycemia; E11.42 Type 2 diabetes mellitus with diabetic polyneuropathy; E11.622 Type 2 diabetes mellitus with other skin ulcer; E03.9 Hypothyroidism, unspecified; M06.9 Rheumatoid arthritis, unspecified; E78.5 Hyperlipidemia, unspecified; F32.9 Major depressive disorder, single episode, unspecified; I10 Essential (primary) hypertension; Z79.01 Long term (current) use of anticoagulants; Z79.82 Long term (current) use of aspirin; Z79.890 Hormone replacement therapy; Z79.4 Long term (current) use of insulin; Z79.51 Long term (current) use of inhaled steroids; Z79.899 Other long term (current) drug therapy; Z86.718 Personal history of other venous thrombosis and embolism; Z86.711 Personal history of pulmonary embolism; Z87.01 Personal history of pneumonia (recurrent); Z85.72 Personal history of non-Hodgkin lymphomas; Z90.81 Acquired absence of spleen; Z87.81 Personal history of (healed) traumatic fracture; Z87.440 Personal history of urinary (tract) infections; Z96.651 Presence of right artificial knee joint; Z87.891 Personal history of nicotine dependence; Z90.49 Acquired absence of other specified parts of digestive tract; Z91.041 Radiographic dye allergy status; Z88.8 Allergy status to other drugs, medicaments and biological substances; Z81.8 Family history of other mental and behavioral disorders
CPT/HCPCS: 36415; 71046; 80048; 80053; 81003; 82550; 82553; 83036; 83605; 83880; 84484; 85025; 85610; 85730; 87040; 87070; 87086; 93005; 94640; 96374; 96375; 99285

== ENCOUNTER 2018-02-20 16:14 | Observation (INO) | payer MEDICARE ==
[2018-02-20] MEDS ORDERED: SODIUM CHLORIDE 0.9% 1,000 ML IV STA (16:57)
--- NOTE | 2018-02-20 17:00 | ED ---
General Adult HPI - General Chief complaint: Neuro Symptoms/Deficit Stated complaint: POSS CVA Time Seen by Provider: 02/20/18 16:35 Source: patient, family, EMS, RN notes reviewed Mode of arrival: EMS Limitations: no limitations - History of Present Illness Initial comments: Patient is a pleasant 72-year-old female presenting to the emergency department with concerns regarding speech. Onset of symptoms was when she woke this morning around 6:30 AM. Symptoms have been persistent since that time. EMS did question some facial droop however family is present and denies noticing any facial droop, even now. They do notice that patient has been somewhat confused and asking for family members who are not present. Patient has also been clumsy and dropping things. No isolated area of weakness identified. No loss of sensation. - Related Data Home Medications Medication Instructions Recorded Confirmed sitaGLIPtin [Januvia] 100 mg PO DAILY@0800 10/09/13 02/20/18 DULoxetine HCL [Cymbalta] 30 mg PO BID@0800,1700 11/27/15 02/20/18 rOPINIRole HCL [Requip] 3 mg PO HS@2100 11/27/15 02/20/18 Rivaroxaban [Xarelto] 20 mg PO DAILY@1700 05/12/16 02/20/18 Allopurinol [Zyloprim] 100 mg PO DAILY@0800 09/20/16 02/20/18 Levothyroxine Sodium [Synthroid] 100 mcg PO DAILY 09/20/16 02/20/18 Omeprazole [PriLOSEC] 20 mg PO DAILY@0700 09/20/16 02/20/18 Atorvastatin [Lipitor] 40 mg PO DAILY@1700 05/02/17 02/20/18 Acetaminophen Tab [Tylenol] 650 mg PO Q6H PRN 08/03/17 02/20/18 Amino Acids/Protein Hydrolys 30 ml PO DAILY@1700 08/03/17 02/20/18 [Pro-Stat Supplement] Budesonide/Formoterol Fumarate 2 puff INHALATION RT-BID PRN 08/03/17 02/20/18 [Symbicort 80-4.5 Mcg Inhaler] Cholecalciferol (Vitamin D3) 4,000 unit PO DAILY@1700 08/03/17 02/20/18 [Vitamin D3] Cyclobenzaprine [Flexeril] 5 mg PO TID PRN 08/03/17 02/20/18 Ferrous Sulfate [Feosol] 325 mg PO W/SUPPER 08/03/17 02/20/18 Glucerna Shake 1 can PO HS 08/03/17 02/20/18 L.acidoph,Paracasei, B.lactis 1 cap PO DAILY 08/03/17 02/20/18 [Probiotic] Polyethylene Glycol 3350 [Miralax] 17 gm PO DAILY PRN 08/03/17 02/20/18 Potassium Chloride ER [K-Dur 20] 20 meq PO DAILY@1700 08/03/17 02/20/18 Pregabalin [Lyrica] 200 mg PO BID@0800,2100 08/03/17 02/20/18 Albuterol Inhaler [Ventolin Hfa 2 puff INHALATION RT-Q4H PRN 09/07/17 02/20/18 Inhaler] Insulin Lispro [humaLOG Kwikpen] 6 unit SQ AC-TID 09/07/17 02/20/18 Mirabegron [Myrbetriq] 50 mg PO DAILY 09/07/17 02/20/18 Ondansetron [Zofran] 4 mg PO Q8HR PRN 09/07/17 02/20/18 Sennosides/Docusate Sodium [Shayy 2 tab PO DAILY 09/07/17 02/20/18 Colace] Aspirin EC [Ecotrin Low Dose] 81 mg PO DAILY@1700 09/13/17 02/20/18 Miconazole Nitrate [Lotrimin AF 1 applic TOPICAL BID 09/13/17 02/20/18 Powder] Cranberry 425 Cap 425 mg PO W/SUPPER 11/24/17 02/20/18 Cranberry Fruit Concentrate [Azo 500 mg PO TID PRN 11/24/17 02/20/18 Cranberry] Diclofenac Sodium [Voltaren Gel] 2 gram TOPICAL TID 11/24/17 02/20/18 Loratadine [Claritin] 10 mg PO DAILY PRN 11/24/17 02/20/18 Metoprolol Tartrate [Lopressor] 12.5 mg PO BID@0800,1700 11/24/17 02/20/18 clonazePAM [KlonoPIN] 0.25 mg PO Q12H PRN 11/24/17 02/20/18 Collagenase [Santyl] 1 applic TOPICAL DAILY 02/20/18 02/20/18 Insulin Detemir [Levemir] 20 unit SQ HS 02/20/18 02/20/18 Previous Rx's Medication Instructions Recorded Furosemide [Lasix] 40 mg PO DAILY #30 tablet 09/16/17 HYDROcodone/APAP 10-325MG [[place] 1 tab PO Q4HR PRN #20 tab 09/18/17 10-325] Allergies Allergy/AdvReac Type Severity Reaction Status Date / Time Iodinated Contrast- Oral and Allergy Unknown Verified 02/20/18 16:32 IV Dye iodine Allergy Unknown Verified 02/20/18 16:32 Review of Systems ROS Statement: Those systems with pertinent positive or pertinent negative responses have been documented in the HPI. ROS Other: All systems not noted in ROS Statement are negative. Constitutional: Denies: fever Eyes: Denies: eye pain ENT: Denies: ear pain Respiratory: Denies: cough Cardiovascular: Denies: chest pain Endocrine: Denies: fatigue Gastrointestinal: Denies: vomiting Genitourinary: Denies: dysuria Musculoskeletal: Denies: back pain Skin: Denies: rash Neurological: Reports: confusion. Denies: headache Past Medical History Past Medical History: Cancer, COPD, Diabetes Mellitus, Deep Vein Thrombosis (DVT ), Hyperlipidemia, Hypertension, Pneumonia, Pulmonary Embolus (PE), Rheumatoid Arthritis (RA), Skin Disorder, Thyroid Disorder Additional Past Medical History / Comment(s): .mult ulcers to stomach,chest and breast-unk cause has had for over a yr-seen at [facility],"[id number] with spleenectomy and radiation,DVTs & PE yrs ago.Uses walker and w/c. fractured ankle right june History of Any Multi-Drug Resistant Organisms: None Reported Past Surgical History: Appendectomy, Section, Cholecystectomy, Orthopedic Surgery Additional Past Surgical History / Comment(s): total rt knee Jan 2017, Splenectomy, Carpal tunnel release, rotator cuff, right bimalleolar fracture repair 06/2017 Past Anesthesia/Blood Transfusion Reactions: No Reported Reaction Past Psychological History: Depression Smoking Status: Former smoker Past Alcohol Use History: None Reported Past Drug Use History: None Reported - Past Family History Father Family Medical History: No Reported History Additional Family Medical History / Comment(s): Father was healthy and lived to be 88yrs old. Mother Family Medical History: No Reported History Additional Family Medical History / Comment(s): Pt states mother was healthy and lived to be 90yrs old. Son(s) Family Medical History: No Reported History Additional Family Medical History / Comment(s): She relates that her parents of old age her mother was about 90 father was 88, without sniffing and medical troubles. She does relate that her son committed suicide but her daughter is quite healthy. General Exam Limitations: no limitations General appearance: alert, in no apparent distress Head exam: Present: atraumatic Eye exam: Present: normal appearance, PERRL, EOMI. Absent: nystagmus ENT exam: Present: normal oropharynx Neck exam: Present: normal inspection Respiratory exam: Present: normal lung sounds bilaterally Cardiovascular Exam: Present: regular rate, normal rhythm GI/Abdominal exam: Present: soft. Absent: tenderness Extremities exam: Present: normal inspection Neurological exam: Present: alert, oriented X3, CN II-XII intact. Absent: motor sensory deficit Expanded Neurological exam: Present: protecting the airway, other (Patient does have some mild slurred speech) Patient oriented to: Present: person, place, time Cranial nerves: EOM's Intact: Normal, Facial Sensation: Normal Sensory exam: Upper Extremity Light Touch: Normal, Lower Extremity Light Touch: Normal Motor strength exam: RUE: 5, LUE: 5, RLE: 5, LLE: 5 Eye Response: (4) open spontaneously Motor Response: (6) obeys commands Verbal Response: (5) oriented Psychiatric exam: Present: normal affect, normal mood Skin exam: Present: normal color Course Vital Signs 02/20/18 16:15 Temperature 98.5 F Pulse Rate 85 Respiratory 18 Rate O2 Sat by Pulse 99 Oximetry EKG Findings - EKG Comments: EKG Findings:: Normal sinus rhythm 77. AR 154. QRS 94. QT 414. QTC 468. Left axis. Left anterior fascicular block. LVH criteria. No acute ST change. Medical Decision Making - Medical Decision Making Patient reevaluated and resting comfortably in bed. Speech has slightly improved however is not normalize. Case was discussed with Dr. Berrios, covering for Dr. Huff, who admits for Dr. Richard. - Lab Data Result diagrams: 02/20/18 17:00 02/20/18 17:00 Lab Results 02/20/18 02/20/18 02/20/18 Range/Units 17:00 17:00 17:00 WBC 6.7 (3.8-10.6) k/uL RBC 4.44 (3.80-5.40) m/uL Hgb 14.0 (11.4-16.0) gm/dL Hct 44.8 (34.0-46.0) % MCV 100.9 H (80.0-100.0) fL MCH 31.4 (25.0-35.0) pg MCHC 31.2 (31.0-37.0) g/dL RDW 19.0 H (11.5-15.5) % Plt Count 292 (150-450) k/uL Neutrophils % 45 % Lymphocytes % 36 % Monocytes % 8 % Eosinophils % 7 % Basophils % 1 % Neutrophils # 3.0 (1.3-7.7) k/uL Lymphocytes # 2.4 (1.0-4.8) k/uL Monocytes # 0.5 (0-1.0) k/uL Eosinophils # 0.5 (0-0.7) k/uL Basophils # 0.0 (0-0.2) k/uL Hypochromasia Marked Anisocytosis Slight Macrocytosis Moderate PT (9.0-12.0) sec INR (<1.2) APTT (22.0-30.0) sec Sodium 139 (137-145) mmol/L Potassium 4.9 (3.5-5.1) mmol/L Chloride 106 (98-107) mmol/L Carbon Dioxide 27 (22-30) mmol/L Anion Gap 6 mmol/L BUN 35 H (7-17) mg/dL Creatinine 1.50 H (0.52-1.04) mg/dL Est GFR (CKD-EPI)AfAm 40 (>60 ml/min/1.73 sqM) Est GFR (CKD-EPI)NonAf 34 (>60 ml/min/1.73 sqM) Glucose 69 L (74-99) mg/dL Calcium 9.7 (8.4-10.2) mg/dL Total Bilirubin 0.5 (0.2-1.3) mg/dL AST 37 H (14-36) U/L ALT 24 (9-52) U/L Alkaline Phosphatase 54 (38-126) U/L Total Creatine Kinase 106 (30-135) U/L CK-MB (CK-2) 3.0 H (0.0-2.4) ng/mL CK-MB (CK-2) Rel Index 2.8 Troponin I <0.012 (0.000-0.034) ng/mL Total Protein 6.2 L (6.3-8.2) g/dL Albumin 3.1 L (3.5-5.0) g/dL 02/20/18 Range/Units 17:00 WBC (3.8-10.6) k/uL RBC (3.80-5.40) m/uL Hgb (11.4-16.0) gm/dL Hct (34.0-46.0) % MCV (80.0-100.0) fL MCH (25.0-35.0) pg MCHC (31.0-37.0) g/dL RDW (11.5-15.5) % Plt Count (150-450) k/uL Neutrophils % % Lymphocytes % % Monocytes % % Eosinophils % % Basophils % % Neutrophils # (1.3-7.7) k/uL Lymphocytes # (1.0-4.8) k/uL Monocytes # (0-1.0) k/uL Eosinophils # (0-0.7) k/uL Basophils # (0-0.2) k/uL Hypochromasia Anisocytosis Macrocytosis PT 11.8 (9.0-12.0) sec INR 1.2 H (<1.2) APTT 28.1 (22.0-30.0) sec Sodium (137-145) mmol/L Potassium (3.5-5.1) mmol/L Chloride (98-107) mmol/L Carbon Dioxide (22-30) mmol/L Anion Gap mmol/L BUN (7-17) mg/dL Creatinine (0.52-1.04) mg/dL Est GFR (CKD-EPI)AfAm (>60 ml/min/1.73 sqM) Est GFR (CKD-EPI)NonAf (>60 ml/min/1.73 sqM) Glucose (74-99) mg/dL Calcium (8.4-10.2) mg/dL Total Bilirubin (0.2-1.3) mg/dL AST (14-36) U/L ALT (9-52) U/L Alkaline Phosphatase (38-126) U/L Total Creatine Kinase (30-135) U/L CK-MB (CK-2) (0.0-2.4) ng/mL CK-MB (CK-2) Rel Index Troponin I (0.000-0.034) ng/mL Total Protein (6.3-8.2) g/dL Albumin (3.5-5.0) g/dL - Radiology Data Radiology results: report reviewed (Computed tomography scan of the brain shows atrophy.) Disposition Clinical Impression: Cerebrovascular accident Disposition: ADMITTED IP TO THIS HOSP Is patient prescribed a controlled substance at d/c from ED?: No Referrals: Patric Richard MD [Primary Care Provider] - 1-2 days Decision Time: 18:32
[2018-02-20 17:29] LABS: Anisocytosis Slight; Basophils % (A) 1 %; Eosinophils # (A) 0.5 k/uL (0-0.7); Eosinophils % (A) 7 %; HCT 44.8 % (34.0-46.0); Hypochromasia Marked; Lymphocytes # (A) 2.4 k/uL (1.0-4.8); Lymphocytes % (A) 36 %; MCH 31.4 pg (25.0-35.0); MCHC 31.2 g/dL (31.0-37.0); MCV 100.9 fL (80.0-100.0); Macrocytosis Moderate; Mean Platelet Volume 7.4; Monocytes # (A) 0.5 k/uL (0-1.0); Monocytes % (A) 8 %; Neutrophils % (A) 45 %; Platelet Count 292 k/uL (150-450); RBC 4.44 m/uL (3.80-5.40); WBC 6.7 k/uL (3.8-10.6)
[2018-02-20 17:36] LABS: INR 1.2 (<1.2); Partial Thromboplastin Time 28.1 sec (22.0-30.0); Prothrombin Time 11.8 sec (9.0-12.0)
[2018-02-20 17:41] LABS: Albumin 3.1 g/dL (3.5-5.0); Calcium 9.7 mg/dL (8.4-10.2); Potassium 4.9 mmol/L (3.5-5.1); Total Bilirubin 0.5 mg/dL (0.2-1.3); Total Protein 6.2 g/dL (6.3-8.2)
[2018-02-20 17:51] LABS: Creatine Kinase 106 U/L (30-135)
--- NOTE | 2018-02-20 18:02 | CT ---
EXAMINATION TYPE: CT brain wo con DATE OF EXAM: 02/20/2018 COMPARISON: None HISTORY: ams, confusion CT DLP: 1147 mGycm Automated exposure control for dose reduction was used. FINDINGS: There is mild cerebral cortical atrophy. There is no mass effect nor midline shift. There is no sign of intracranial hemorrhage. The calvarium is intact. IMPRESSION: CEREBRAL ATROPHY. NO ACUTE INTRACRANIAL ABNORMALITY.
[2018-02-20 18:04] LABS: Troponin I <0.012 ng/mL (0.000-0.034)
[2018-02-20] MEDS ORDERED: ASPIRIN 325 MG TAB PO STA (18:33)
--- NOTE | 2018-02-20 18:46 | XR ---
EXAMINATION TYPE: XR chest 2V DATE OF EXAM: 02/20/2018 COMPARISON: 11/25/2017 HISTORY: Chest pain TECHNIQUE: Frontal and lateral views of the chest are obtained. FINDINGS: Heart is normal. There is coarsening of pulmonary interstitial markings. There is no defin ite pleural effusion. There is posterior infiltrate at the lung base on the lateral view that is new compared to old exam. This could be in the right lower lobe. There are chest leads. The bony thorax i s intact. Thoracic aorta is atheromatous. IMPRESSION: There is increased pneumonia that is probably in the right lower lobe compared to last e xam. No heart failure. Interstitial pulmonary infiltrates are improved compared to last exam.
[2018-02-20] MEDS ORDERED: SODIUM CHLORIDE 0.9% 1,000 ML IV ONE ×2 (21:48→23:27)
--- NOTE | 2018-02-20 21:53 | US ---
EXAMINATION TYPE: US carotid duplex BILAT DATE OF EXAM: 02/20/2018 COMPARISON: NONE CLINICAL HISTORY: Stenosis. Trouble speaking. Exam limitations due to patient snoring during exam. EXAM MEASUREMENTS: RIGHT: Peak Systolic Velocity (PSV) cm/sec ----- Right CCA: 85.7 ----- Right ICA: 63.8 ----- Right ECA: 100.2 ICA/CCA ratio: 0.7 RIGHT: End Diastole cm/sec ----- Right CCA: 24.6 ----- Right ICA: 7.4 ----- Right ECA: 10.3 LEFT: Peak Systolic Velocity (PSV) cm/sec ----- Left CCA: 58.9 ----- Left ICA: 135.7 ----- Left ECA: 102.3 ICA/CCA ratio: 2.3 LEFT: End Diastole cm/sec ----- Left CCA: 17.5 ----- Left ICA: 39.2 ----- Left ECA: 15.6 VERTEBRALS (direction of flow): Right Vertebral: Antegrade Left Vertebral: Antegrade Rhythm: Normal Vessels dive deep. Elevated Left ICA Prox. IMPRESSION: There is antegrade flow in the vertebral arteries. The images and measurements suggest 50-70% stenosis in the left internal carotid artery. There is 0-5 0% stenosis in the right internal carotid artery. Mild bilateral plaque formation. Criteria for Assigning % of Stenosis / Diameter reduction (Estimation based on the indirect measurements of the internal carotid artery velocities (ICA PSV). 1. Normal (no stenosis)=ICA PSV < 125 cm/s: ratio < 2.0: ICA EDV<40 cm/s. 2. Less than 50% stenosis=ICA PSV < 125 cm/s: ratio < 2.0: ICA EDV<40 cm/s. 3. 50 to 69% stenosis=ICA PSV of 125 to 230 cm/s: ration 2.0 ? 4.0: ICA EDV 40-100 cm/s. 4. Greater than 70% stenosis to near occlusion= ICA PSV > 230 cm/s: ratio > 4.0: ICA EDV > 100 cm/s. 5. Near occlusion= ICA PSV velocities may be low or undetectable: variable ratio and ICA EDV. 6. Total occlusion=unable to detect flow.
[2018-02-20] MEDS ORDERED: NALOXONE 0.4 MG/ML 1 ML VIAL IV PRN (22:07)
[2018-02-20] MEDS ORDERED: clonazePAM 0.5 MG TAB PO PRN (22:11)
[2018-02-20] MEDS ORDERED: ACETAMINOPHEN TAB 325 MG TAB PO PRN (22:11)
[2018-02-20] MEDS ORDERED: IPRATROPIUM-ALBUTEROL 3 ML NEB INHALATION PRN (22:14)
[2018-02-20] MEDS ORDERED: INSULIN DETEMIR 100 UNIT/ML 10 ML VIAL SQ SCH (22:15)
--- NOTE | 2018-02-20 23:15 | P.HPIM ---
History of Present Illness H&P Date: 02/20/18 Chief Complaint: difficulty finding words 72-year-old female with history of diabetes mellitus on insulin, COPD, hypertension and hyperlipidemia. Patient presented to the hospital due to difficulty finding words. She reports that she woke up this morning she had the problem she was laughing and initially had breakfast with no complications. However the problem persisted and she started growing worried. She was just using the wrong words despite of having intact without process and was just having some difficulties finding the right words to explain her thoughts. Her noticed that and the problem persisted off and on during the day and toe they decided to go to the hospital. She denies any new other focal neurologic deficits like any numbness or tingling or any weakness. She had right ankle fracture back in June 2017 and since then she's been using wheelchair and walker to ambulate. She denies any headache changes in her vision or hearing she denies any weakness numbness or tingling in her extremities. None of her family members noticed any facial droop. Patient takes blood thinner for history of blood clots. She reports being compliant with her medications. In the emergency department computed tomography scan of the head was unremarkable Carotid Doppler was performed still pending reports. She was found also to have elevated creatinine. Patient denies any changes in her urination. Patient denies any GI bleeding. Otherwise patient denies any fevers chills coughing chest pain or any trouble breathing. Denies any abdominal pain or changes in her bowel or urinary habits. Patient was admitted under observation for further monitoring and care. Review of Systems Pertinent positives as noted in HPI. All other systems were reviewed and are negative Past Medical History Past Medical History: Cancer, COPD, Diabetes Mellitus, Deep Vein Thrombosis (DVT ), Hyperlipidemia, Hypertension, Pneumonia, Pulmonary Embolus (PE), Rheumatoid Arthritis (RA), Skin Disorder, Thyroid Disorder Additional Past Medical History / Comment(s): .mult ulcers to stomach,chest and breast-unk cause has had for over a yr-seen at [facility],"[id number] with spleenectomy and radiation,DVTs & PE yrs ago.Uses walker and w/c. fractured ankle right june 2017 History of Any Multi-Drug Resistant Organisms: None Reported Past Surgical History: Appendectomy, Section, Cholecystectomy, Orthopedic Surgery Additional Past Surgical History / Comment(s): total rt knee Jan 2017, Splenectomy, Carpal tunnel release, rotator cuff, right bimalleolar fracture repair 06/2017 Past Anesthesia/Blood Transfusion Reactions: No Reported Reaction Past Psychological History: Depression Smoking Status: Former smoker Past Alcohol Use History: None Reported Past Drug Use History: None Reported - Past Family History Father Family Medical History: No Reported History Additional Family Medical History / Comment(s): Father was healthy and lived to be 88yrs old. Mother Family Medical History: No Reported History Additional Family Medical History / Comment(s): Pt states mother was healthy and lived to be 90yrs old. Son(s) Family Medical History: No Reported History Additional Family Medical History / Comment(s): She relates that her parents of old age her mother was about 90 father was 88, without sniffing and medical troubles. She does relate that her son committed suicide but her daughter is quite healthy. Medications and Allergies Home Medications Medication Instructions Recorded Confirmed Type sitaGLIPtin [Januvia] 100 mg PO DAILY@0800 10/09/13 02/20/18 History DULoxetine HCL [Cymbalta] 30 mg PO BID@0800,1700 11/27/15 02/20/18 History rOPINIRole HCL [Requip] 3 mg PO HS@2100 11/27/15 02/20/18 History Rivaroxaban [Xarelto] 20 mg PO DAILY@1700 05/12/16 02/20/18 History Allopurinol [Zyloprim] 100 mg PO DAILY@0800 09/20/16 02/20/18 History Levothyroxine Sodium [Synthroid] 100 mcg PO DAILY 09/20/16 02/20/18 History Omeprazole [PriLOSEC] 20 mg PO DAILY@0700 09/20/16 02/20/18 History Atorvastatin [Lipitor] 40 mg PO DAILY@1700 05/02/17 02/20/18 History Acetaminophen Tab [Tylenol] 650 mg PO Q6H PRN 08/03/17 02/20/18 History Amino Acids/Protein Hydrolys 30 ml PO DAILY@1700 08/03/17 02/20/18 History [Pro-Stat Supplement] Budesonide/Formoterol Fumarate 2 puff INHALATION RT-BID PRN 08/03/17 02/20/18 History [Symbicort 80-4.5 Mcg Inhaler] Cholecalciferol (Vitamin D3) 4,000 unit PO DAILY@1700 08/03/17 02/20/18 History [Vitamin D3] Cyclobenzaprine [Flexeril] 5 mg PO TID PRN 08/03/17 02/20/18 History Ferrous Sulfate [Feosol] 325 mg PO W/SUPPER 08/03/17 02/20/18 History Glucerna Shake 1 can PO HS 08/03/17 02/20/18 History L.acidoph,Paracasei, B.lactis 1 cap PO DAILY 08/03/17 02/20/18 History [Probiotic] Polyethylene Glycol 3350 [Miralax] 17 gm PO DAILY PRN 08/03/17 02/20/18 History Potassium Chloride ER [K-Dur 20] 20 meq PO DAILY@1700 08/03/17 02/20/18 History Pregabalin [Lyrica] 200 mg PO BID@0800,2100 08/03/17 02/20/18 History Albuterol Inhaler [Ventolin Hfa 2 puff INHALATION RT-Q4H PRN 09/07/17 02/20/18 History Inhaler] Insulin Lispro [humaLOG Kwikpen] 6 unit SQ AC-TID 09/07/17 02/20/18 History Mirabegron [Myrbetriq] 50 mg PO DAILY 09/07/17 02/20/18 History Ondansetron [Zofran] 4 mg PO Q8HR PRN 09/07/17 02/20/18 History Sennosides/Docusate Sodium [Shayy 2 tab PO DAILY 09/07/17 02/20/18 History Colace] Aspirin EC [Ecotrin Low Dose] 81 mg PO DAILY@1700 09/13/17 02/20/18 History Miconazole Nitrate [Lotrimin AF 1 applic TOPICAL BID 09/13/17 02/20/18 History Powder] Furosemide [Lasix] 40 mg PO DAILY #30 tablet 09/16/17 02/20/18 Rx HYDROcodone/APAP 10-325MG [[place] 1 tab PO Q4HR PRN #20 tab 09/18/17 02/20/18 Rx 10-325] Cranberry 425 Cap 425 mg PO W/SUPPER 11/24/17 02/20/18 History Cranberry Fruit Concentrate [Azo 500 mg PO TID PRN 11/24/17 02/20/18 History Cranberry] Diclofenac Sodium [Voltaren Gel] 2 gram TOPICAL TID 11/24/17 02/20/18 History Loratadine [Claritin] 10 mg PO DAILY PRN 11/24/17 02/20/18 History Metoprolol Tartrate [Lopressor] 12.5 mg PO BID@0800,1700 11/24/17 02/20/18 History clonazePAM [KlonoPIN] 0.25 mg PO Q12H PRN 11/24/17 02/20/18 History Collagenase [Santyl] 1 applic TOPICAL DAILY 02/20/18 02/20/18 History Insulin Detemir [Levemir] 20 unit SQ HS 02/20/18 02/20/18 History Allergies Allergy/AdvReac Type Severity Reaction Status Date / Time Iodinated Contrast- Oral and Allergy Unknown Verified 02/20/18 16:32 IV Dye iodine Allergy Unknown Verified 02/20/18 16:32 Physical Exam Vitals: Vital Signs Temp Pulse Pulse Resp BP Pulse Ox 02/20/18 19:15 97.0 F L 76 20 103/55 83 L 02/20/18 16:15 98.5 F 85 18 99 Intake and Output 02/20/18 02/20/18 02/20/18 06:59 14:59 22:59 Other: Weight 111.584 kg Constitutional: No acute distress, conversant, pleasant, morbidly obese Eyes: Anicteric sclerae, moist conjunctiva, no lid-lag Pupils equal round reactive to light ENMT: NC/AT Oropharynx clear, no erythema, exudates Neck: Supple, FROM, no masses, or JVD No carotid bruits No thyromegaly Lungs: Good breath sounds bilaterally with scattered expiratory wheezes Clear to percussion Normal respiratory effort, no accessory muscle use Cardiovascular: Distant Heart sounds , regular in rate and rhythm, No murmurs, gallops, or rubs No peripheral edema Abdominal: Soft Nontender, no guarding, rebound or rigidity Abdomen moving with respiration Normoactive bowel sounds No hepatomegaly, No splenomegaly No palpable mass No abdominal wall hernia noted Skin: Normal temperature, tone, texture, turgor No induration No subcutaneous nodules No rash, lesions No ulcers Extremities: No digital cyanosis No clubbing Pedal pulses intact and symmetrical Radial pulses intact and symmetrical No calf tenderness Psychiatric: Alert and oriented to person, place and time Appropriate affect fair judgment Neuro Muscles Strength 4/5 in all 4 extremities Sensation to light touch grossly present throughout Cranial nerves II-XII grossly intact No focal sensory deficits Cerebellar exam, finger-nose exam was intact bilaterally Lymphatics: no palpable cervical or supraclavicular , or inguinal lymph nodes Results CBC & Chem 7: 02/20/18 17:00 02/20/18 17:00 Labs: Abnormal Lab Results - Last 24 Hours (Table) 02/20/18 02/20/18 02/20/18 Range/Units 17:00 17:00 17:00 MCV 100.9 H (80.0-100.0) fL RDW 19.0 H (11.5-15.5) % INR (<1.2) BUN 35 H (7-17) mg/dL Creatinine 1.50 H (0.52-1.04) mg/dL Glucose 69 L (74-99) mg/dL AST 37 H (14-36) U/L CK-MB (CK-2) 3.0 H (0.0-2.4) ng/mL Total Protein 6.2 L (6.3-8.2) g/dL Albumin 3.1 L (3.5-5.0) g/dL 02/20/18 Range/Units 17:00 MCV (80.0-100.0) fL RDW (11.5-15.5) % INR 1.2 H (<1.2) BUN (7-17) mg/dL Creatinine (0.52-1.04) mg/dL Glucose (74-99) mg/dL AST (14-36) U/L CK-MB (CK-2) (0.0-2.4) ng/mL Total Protein (6.3-8.2) g/dL Albumin (3.5-5.0) g/dL Assessment and Plan Assessment: 72 year old female with history of DM, COPD on home oxygen , HTN. Admitted under observation with anticipated length of stay <48 hours due to TIA (patient presented with difficulty finding words) she was also found to have KATARZYNA, her initial CT of head showed no acute process. Plan: TIA KATARZYNA, secondary to prerenal ATN from dehydration Diabetes mellitus on insulin hypertension , controlled Morbid Obesity COPD without acute exacerbation , on home oxygen Hypothyroidism history of VTE, on xarelto RLS on requip Plan neuro checks neuro consult statin, aspirin await carotid doppler report check echocardiogram check lipid panel, A1C, B12 PT/OT continue with home oxygen, inhalers hold lasix, and lyrica due to KATARZYNA, continue with IVF hydration , monitor renal function and urine output Hold oral anticoagulation due to TIA , consider resuming after 24-48 hrs upon discharge continue levothyroxin continue levemir , and insulin sliding scale SCD for DVT prophylaxis Preformed a thorough record review from recent hospitalization and recent hospitalization in November 2017 for sepsis with pneumonia Surrogate decision-maker: Patient CODE STATUS: Full code Discussed with: Patient, ER, RN Anticipated discharge: <[address]: Home A total of 60 minutes was spent on the care of this complex patient more than 50 % of the time was spent in counseling and care coordination.
[2018-02-21] MEDS: SODIUM CHLORIDE 0.9% 1,000 ML IV SCH ×4 (00:13→17:57)
[2018-02-21 00:49] VITALS: BMI 48.0
[2018-02-21 07:14] LABS: Glucose,Whole Blood 47 mg/dL (75-99)
[2018-02-21 07:41] LABS: Glucose,Whole Blood 54 mg/dL (75-99)
[2018-02-21 07:41] LABS: Glucose,Whole Blood 59 mg/dL (75-99)
[2018-02-21] MEDS: ASPIRIN 325 MG TAB PO SCH (07:57)
[2018-02-21] MEDS: LEVOTHYROXINE 100 MCG TAB PO SCH (07:58)
[2018-02-21] MEDS: SENNOSIDES-DOCUSATE SODIUM 1 EACH TAB PO SCH (07:58)
[2018-02-21] MEDS: INSULIN ASPART 100 UNIT/ML 1 ML 10 ML VIAL SQ SCH ×4 (07:58→21:41)
[2018-02-21] MEDS: METOPROLOL TARTRATE 12.5 MG TAB PO SCH ×2 (07:59→17:56)
[2018-02-21] MEDS: DULoxetine HCL 30 MG CAPSULE.DR PO SCH ×2 (07:59→17:56)
[2018-02-21] MEDS: NON-FORMULARY DRUG (Mirabegron [Myrbetriq] 50 MG) PO SCH (08:00)
[2018-02-21 08:04] LABS: Glucose,Whole Blood 59 mg/dL (75-99)
[2018-02-21 08:06] LABS: Glucose,Whole Blood 64 mg/dL (75-99)
[2018-02-21] MEDS ORDERED: FAMOTIDINE 20 MG TAB PO SCH (09:00)
[2018-02-21 09:07] LABS: Albumin 3.1 g/dL (3.5-5.0); Calcium 9.6 mg/dL (8.4-10.2); Magnesium 2.2 mg/dL (1.6-2.3); Potassium 4.3 mmol/L (3.5-5.1); Total Bilirubin 0.4 mg/dL (0.2-1.3); Total Protein 6.2 g/dL (6.3-8.2)
[2018-02-21 09:24] LABS: Glucose,Whole Blood 83 mg/dL (75-99)
[2018-02-21 09:44] LABS: Anisocytosis Slight; Basophils # (A) 0.1 k/uL (0-0.2); Basophils % (A) 1 %; Eosinophils # (A) 0.4 k/uL (0-0.7); Eosinophils % (A) 3 %; HCT 47.3 % (34.0-46.0); HGB 14.2 gm/dL (11.4-16.0); Hypochromasia Marked; Lymphocytes # (A) 1.6 k/uL (1.0-4.8); Lymphocytes % (A) 13 %; MCH 30.8 pg (25.0-35.0); MCV 102.6 fL (80.0-100.0); Macrocytosis Moderate; Mean Platelet Volume 7.5; Monocytes # (A) 0.7 k/uL (0-1.0); Monocytes % (A) 6 %; Neutrophils # (A) 9.1 k/uL (1.3-7.7); Neutrophils % (A) 77 %; Platelet Count 377 k/uL (150-450); RBC 4.61 m/uL (3.80-5.40); RDW 18.6 % (11.5-15.5); WBC 11.9 k/uL (3.8-10.6)
[2018-02-21 11:16] LABS: Glucose,Whole Blood 117 mg/dL (75-99)
[2018-02-21] MEDS: SYMBICORT 80-4.5 MCG INHALER INHALATION PRN (11:21)
--- NOTE | 2018-02-21 14:47 | P.PN ---
Subjective Progress Note Date: 02/21/18 Patient was seen and examined at the bedside. The patient notes that her word finding difficulty has resolved entirely, and she no longer has slurred speech or any other active complaints. She is otherwise benign any headache, blurred vision, weakness, numbness, dizziness, cough, chest pain, or SOB. Objective - Vital Signs Vital signs: Vital Signs Temp 97.7 F 02/21/18 12:00 Pulse 79 02/21/18 12:00 Resp 18 02/21/18 12:00 BP 121/59 02/21/18 12:00 Pulse Ox 91 L 02/21/18 07:53 Intake & Output 02/20/18 02/21/18 02/21/18 18:59 06:59 18:59 Intake Total 1800 600 Output Total 1200 500 Balance 600 100 Weight 111.584 kg 111.584 kg Intake: Intake, IV Titration 1000 Amount Sodium Chloride 0.9% 1, 1000 000 ml @ 150 mls/hr IV . Q6H40M [facility] Rx#:[id number] Oral 800 600 Output: Urine 1200 500 Other: Voiding Method Bedside Commode Bedside Commode # Voids 3 - Exam General: Non-toxic, in no acute distress HEENT: NC/AT, anicteric sclerae, moist conjunctiva, no lid-lag, PERRLA, oropharynx clear, no erythema, exudates Cardiovascular: S1/S2 wnl, no murmurs, rubs, or gallops Lungs: Clear to auscultation, normal respiratory effort, no accessory muscle use Abdominal: Soft, nontender, non-distended, no guarding, rebound, or rigidity, normoactive bowel sounds Skin: Warm, dry Extremities: No edema or contractures Psychiatric: Alert and oriented to person, place and time, appropriate affect, Intact judgment Neuro: CN II-XII grossly intact, Strength 5/5 throughout, sensation grossly intact throughout - Labs CBC & Chem 7: 02/21/18 08:19 02/21/18 08:19 Labs: Abnormal Lab Results - Last 24 Hours (Table) 02/20/18 02/20/18 02/20/18 Range/Units 17:00 17:00 17:00 WBC (3.8-10.6) k/uL Hct (34.0-46.0) % MCV 100.9 H (80.0-100.0) fL MCHC (31.0-37.0) g/dL RDW 19.0 H (11.5-15.5) % Neutrophils # (1.3-7.7) k/uL INR (<1.2) BUN 35 H (7-17) mg/dL Creatinine 1.50 H (0.52-1.04) mg/dL Glucose 69 L (74-99) mg/dL POC Glucose (mg/dL) (75-99) mg/dL AST 37 H (14-36) U/L CK-MB (CK-2) 3.0 H (0.0-2.4) ng/mL Total Protein 6.2 L (6.3-8.2) g/dL Albumin 3.1 L (3.5-5.0) g/dL HDL Cholesterol (40-60) mg/dL 02/20/18 02/21/18 02/21/18 Range/Units 17:00 07:04 07:17 WBC (3.8-10.6) k/uL Hct (34.0-46.0) % MCV (80.0-100.0) fL MCHC (31.0-37.0) g/dL RDW (11.5-15.5) % Neutrophils # (1.3-7.7) k/uL INR 1.2 H (<1.2) BUN (7-17) mg/dL Creatinine (0.52-1.04) mg/dL Glucose (74-99) mg/dL POC Glucose (mg/dL) 47 L 54 L (75-99) mg/dL AST (14-36) U/L CK-MB (CK-2) (0.0-2.4) ng/mL Total Protein (6.3-8.2) g/dL Albumin (3.5-5.0) g/dL HDL Cholesterol (40-60) mg/dL 02/21/18 02/21/18 02/21/18 Range/Units 07:39 07:52 08:04 WBC (3.8-10.6) k/uL Hct (34.0-46.0) % MCV (80.0-100.0) fL MCHC (31.0-37.0) g/dL RDW (11.5-15.5) % Neutrophils # (1.3-7.7) k/uL INR (<1.2) BUN (7-17) mg/dL Creatinine (0.52-1.04) mg/dL Glucose (74-99) mg/dL POC Glucose (mg/dL) 59 L 59 L 64 L (75-99) mg/dL AST (14-36) U/L CK-MB (CK-2) (0.0-2.4) ng/mL Total Protein (6.3-8.2) g/dL Albumin (3.5-5.0) g/dL HDL Cholesterol (40-60) mg/dL 02/21/18 02/21/18 02/21/18 Range/Units 08:19 08:19 11:12 WBC 11.9 H (3.8-10.6) k/uL Hct 47.3 H (34.0-46.0) % MCV 102.6 H (80.0-100.0) fL MCHC 30.0 L (31.0-37.0) g/dL RDW 18.6 H (11.5-15.5) % Neutrophils # 9.1 H (1.3-7.7) k/uL INR (<1.2) BUN 28 H (7-17) mg/dL Creatinine 1.13 H (0.52-1.04) mg/dL Glucose 120 H (74-99) mg/dL POC Glucose (mg/dL) 117 H (75-99) mg/dL AST 38 H (14-36) U/L CK-MB (CK-2) (0.0-2.4) ng/mL Total Protein 6.2 L (6.3-8.2) g/dL Albumin 3.1 L (3.5-5.0) g/dL HDL Cholesterol 34 L (40-60) mg/dL Assessment and Plan Plan: TIA, now resolved - Pending neurology consult, Echocardiogram - C/w Neurochecks - Lipid panel reviewed - C/w Aspirin, Statin - Continue to hold off on Xarelto hx of PEs - Continue to hold off on Xarelto for now COPD, on home O2 - C/w O2 via NC - C/w Symbicort inhalers KATARZYNA, likely pre-renal, improved - Will monitor - C/w IVFs and hold lasix for now DM Type 2, A1C pending, w/ hypoglycemia - Will decrease Levemir to 10 U qhs from 20 in light of hypoglycemia - C/w Insulin sliding scale HTN, controlled - C/w Lopressor 12.5 mg bid Hypothyroidism - C/w Levothyroxine 100 mcg qam DVT//GI prophylaxis - IPCDs - No indication for GI prophylaxis Discussed with: Patient Anticipated discharge date: 02/22/[address]: Home A total of 45 minutes was spent on the care of this complex patient more than 50 % of the time was spent in counseling and care coordination.
--- NOTE | 2018-02-21 14:59 | ECHOF ---
Referral Reason:Thrombus MEASUREMENTS -------- HEIGHT: 152.4 cm WEIGHT: 111.6 kg BP: 100/51 RVIDd: 2.5 cm (< 3.3) IVSd: 1.1 cm (0.6 - 1.1) LVIDd: 4.6 cm (3.9 - 5.3) LVPWd: 1.1 cm (0.6 - 1.1) IVSs: 1.3 cm LVIDs: 3.2 cm LVPWs: 1.6 cm LA Diam: 3.3 cm (2.7 - 3.8) LAESV Index (A-L): 18.05 ml/m Ao Diam: 2.9 cm (2.0 - 3.7) AV Cusp: 1.3 cm (1.5 - 2.6) MV EXCURSION: 21.866 mm (> 18.000) MV EF SLOPE: 97 mm/s (70 - 150) EPSS: 1.2 cm MV E Gerardo: 0.88 m/s MV DecT: 209 ms MV A Gerardo: 0.89 m/s MV E/A Ratio: 0.99 RAP: 5.00 mmHg RVSP: 28.81 mmHg FINDINGS -------- Sinus rhythm. This was a technically adequate study. The left ventricular size is normal. There is borderline concentric left ventricular hypertrophy. Overall left ventricular systolic function is normal with, an EF between 55 - 60 %. The right ventricle is normal in size. Normal LA size by volume 22+/-6 ml/m2. The right atrium is normal in size. Aortic valve is trileaflet and is mildly thickened. Mild mitral annular calcification present. Mild tricuspid regurgitation present. Right ventricular systolic pressure is normal at < 35 mmHg. The pulmonic valve was not well visualized. The aortic root size is normal. Normal inferior vena cava with normal inspiratory collapse consistent with estimated right atrial pre ssure of 5 mmHg. There is no pericardial effusion. CONCLUSIONS -------- 1. Sinus rhythm. 2. This was a technically adequate study. 3. The left ventricular size is normal. 4. There is borderline concentric left ventricular hypertrophy. 5. Overall left ventricular systolic function is normal with, an EF between 55 - 60 %. 6. The right ventricle is normal in size. 7. Normal LA size by volume 22+/-6 ml/m2. 8. The right atrium is normal in size. 9. Aortic valve is trileaflet and is mildly thickened. 10. Mild mitral annular calcification present. 11. Mild tricuspid regurgitation present. 12. Right ventricular systolic pressure is normal at < 35 mmHg. 13. The pulmonic valve was not well visualized. 14. The aortic root size is normal. 15. Normal inferior vena cava with normal inspiratory collapse consistent with estimated right atrial pressure of 5 mmHg. 16. There is no pericardial effusion. FERRYBOAT TICKET TAKER: Lizzie Whalen RDCS
[2018-02-21 16:12] LABS: Hemoglobin A1C 7.5 % (4.0-6.0)
[2018-02-21 16:12] LABS: Glucose,Whole Blood 112 mg/dL (75-99)
[2018-02-21] MEDS ORDERED: ATORVASTATIN 40 MG TAB PO SCH (17:00)
--- NOTE | 2018-02-21 20:29 | CONS ---
CONSULTATION DATE OF CONSULTATION: 02/21/2018 CHIEF COMPLAINT: Transient ischemic attack. HISTORY OF PRESENT ILLNESS: The patient is a pleasant 72-year-old female who is being evaluated by the neurology service per the request of Dr. Berrios for a transient ischemic attack. The patient was brought into [facility] Emergency Room after she had a sudden and transient and remembers trying to stay several things, but the words would not come out right. The symptoms lasted approximately Ends abruptly. MMODL / IJN: [id number] /
--- NOTE | 2018-02-21 20:35 | CONS ---
CONSULTATION ADDENDUM/CONTINUATION OF CONSULTATION: DATE OF SERVICE: 02/21/[address] scan of the brain was done in the emergency room which showed generalized atrophy. Her carotid Doppler showed 50% to 70% stenosis on the left side and less than 50% stenosis on the right. Her CBC showed mild leukocytosis at 11.9 and was otherwise normal. Her comprehensive metabolic profile showed mild renal insufficiency with a BUN of 28 and creatinine of 1.13. Her fasting lipid panel was normal. The patient is already on Xarelto at home for a history of pulmonary embolism and deep venous thrombosis. She was started on IV hydration and admitted for further workup and management. At the time of my evaluation, she is sitting in her bedside chair and appears to be in no acute distress. She denies any recurrence of any neurological symptoms since her admission. PAST MEDICAL HISTORY: 1. Pulmonary embolism. 2. Deep venous thrombosis. 3. Chronic obstructive pulmonary disease. 4. Diabetes. 5. Dyslipidemia. 6. Hypertension. 7. Rheumatoid arthritis. 8. Hypothyroidism. 9. Peptic ulcer disease. 10.Depression. 11.History of appendectomy. 12.. 13.Cholecystectomy. 14.Orthopedic surgeries with right knee replacement surgery and multiple right ankle surgeries. 15.Carpal tunnel release surgery. 16.Splenectomy. 17.History of lymphoma. SOCIAL HISTORY: The patient is a former smoker. She denies any alcohol or drug use. FAMILY HISTORY: Noncontributory. HOME MEDICATIONS: Reviewed in the chart. ALLERGIES: IODINE. REVIEW OF SYSTEMS: CONSTITUTIONAL: Positive for fatigue. EYES: Negative. ENT: Negative. CARDIOVASCULAR: As mentioned above. RESPIRATORY: Positive for occasional shortness of breath. NEUROLOGICAL: As mentioned above. GASTROINTESTINAL: As mentioned above. GENITOURINARY: Negative. DERMATOLOGICAL: Negative. ONCOLOGIC: As mentioned above. ENDOCRINE: Positive for history of diabetes and hypothyroidism. PSYCHIATRIC: Positive for history of depression. MUSCULOSKELETAL: Positive for frequent joint pain. PHYSICAL EXAMINATION: Vital signs show a temperature of 97.0, pulse 95, respiration 20, blood pressure 138/73. GENERAL APPEARANCE: The patient is an obese elderly female who appears to be in no acute distress. HEENT: Normocephalic, atraumatic. No facial asymmetry is seen. NECK: Supple with no masses felt. CARDIOVASCULAR: Regular rate and rhythm. ABDOMEN: Nontender, nondistended. Extremities showed edema with no clubbing seen. NEUROLOGICAL EXAM: The patient is awake and oriented x3. Speech and language are normal. No lateralizing weakness is seen. Sensory exam showed diminished light touch sensation on the left lower extremity compared to the right. Sensory exam was normal in bilateral upper extremities. Tinel sign was positive on the right. No pronator drift is seen. No facial asymmetry is noticed on cranial nerve testing. IMPRESSION: 1. Transient ischemic attack. 2. Expressive aphasia, resolved. 3. Carotid stenosis. 4. Renal insufficiency. RECOMMENDATION: The patient does appear to have suffered a transient ischemic attack with a transient episode of expressive aphasia. She is already on Xarelto for anticoagulation therapy and we will continue with this regimen. I will order a serum homocystine level and EEG. Her fasting lipid panel was normal and I will keep her on her current statin therapy. As for her carotid Doppler findings, I will order a CT angiogram of the neck to rule out any significant stenosis. Continue IV hydration as tolerated for her renal insufficiency. Continue neuro checks. As for her left lower extremity sensory deficit, this is chronic according to her. She will need further outpatient neurophysiological workup. I will continue to follow with you. Further recommendations to follow. Thank you for allowing me to participate in the care of your patient. If you have any questions, please feel free to contact me. MMDANE / IJN: [id number] /
[2018-02-21 20:43] LABS: Appearance,Urine Cloudy (Clear); Bacteria,Urine Many /hpf; Bilirubin,Urine Negative (Negative); Blood,Urine Negative (Negative); Color,Urine Colorless; Glucose,Urine (UA) Negative (Negative); Ketones,Urine Negative (Negative); Leukocyte Esterase,Urine Large (Negative); Nitrite,Urine Positive (Negative); Protein,Urine Negative (Negative); RBC,Urine 1 /hpf (0-5); Specific Gravity,Urine 1.004 (1.001-1.035); Squamous Epithelial Cell,Urine 1 /hpf (0-4); Urobilinogen,Urine <2.0 mg/dL (<2.0); WBC,Urine 141 /hpf (0-5)
[2018-02-21] MEDS ORDERED: INSULIN DETEMIR 100 UNIT/ML 10 ML VIAL SQ SCH (21:00)
[2018-02-21 21:03] LABS: Glucose,Whole Blood 90 mg/dL (75-99)
[2018-02-21] MEDS ORDERED: methylPREDNISolone SOD SUCCI 125 MG/2 ML VIAL IV STA (21:44)
[2018-02-21] MEDS ORDERED: FAMOTIDINE 20 MG/2 ML VIAL IV STA (21:44)
[2018-02-21] MEDS ORDERED: diphenhydrAMINE 50 MG/ML 1 ML VIAL IVP STA (21:44)
--- NOTE | 2018-02-21 23:21 | CT ---
EXAMINATION TYPE: CT angio neck DATE OF EXAM: 02/21/2018 HISTORY: TIA, abnormal doppler. COMPARISON: CT DLP: 337.7 mGycm. Automated Exposure Control for Dose Reduction was Utilized. TECHNIQUE: CTA scan of the neck is performed with IV Contrast, patient injected with 65 mL of Isovue 370, axial images are obtained, coronal and sagittal reformatted images are reviewed. Three-D recons tructed images are created on an independent workstation and reviewed. FINDINGS: Thoracic aorta is atheromatous. There is normal branching pattern of the great vessels on the aortic arch. There is patency of the common internal and external carotid arteries bilaterally. There is bridget ateral patency of the vertebral arteries. Left vertebral artery is small. There is some plaque format ion and lumen narrowing of 25% at the origin left internal carotid artery. I see no significant narro wing at the right carotid artery bifurcation. There is arterial flow in the basilar artery. This fill s mostly from the right side. IMPRESSION: No evidence of carotid artery aneurysm or dissection. There is approximate 25% stenosis at the origin of the left internal carotid artery and close to 0% stenosis origin of the right internal carotid ar camila. There is a diminutive left vertebral artery. Patchy infiltrate is noted at the lung apices and more on the left side. There is thickening of the left major fissure.
[2018-02-22] MEDS: SODIUM CHLORIDE 0.9% 1,000 ML IV SCH ×2 (02:06→09:24)
[2018-02-22 04:06] LABS: Glucose,Whole Blood 115 mg/dL (75-99)
[2018-02-22 06:10] LABS: Glucose,Whole Blood 162 mg/dL (75-99)
[2018-02-22] MEDS: LEVOTHYROXINE 100 MCG TAB PO SCH (06:19)
[2018-02-22] MEDS: INSULIN ASPART 100 UNIT/ML 1 ML 10 ML VIAL SQ SCH ×2 (06:19→13:11)
[2018-02-22 06:59] LABS: Anisocytosis Slight; HCT 50.2 % (34.0-46.0); HGB 15.7 gm/dL (11.4-16.0); Hypochromasia Marked; MCH 31.4 pg (25.0-35.0); MCHC 31.2 g/dL (31.0-37.0); MCV 100.5 fL (80.0-100.0); Macrocytosis Moderate; Mean Platelet Volume 7.9; Platelet Count 409 k/uL (150-450); RBC 4.99 m/uL (3.80-5.40); RDW 18.6 % (11.5-15.5); WBC 6.9 k/uL (3.8-10.6)
[2018-02-22 07:32] LABS: Anion Gap 6 mmol/L; Blood Urea Nitrogen 16 mg/dL (7-17); Calcium 10.1 mg/dL (8.4-10.2); Carbon Dioxide 27 mmol/L (22-30); Chloride 110 mmol/L (98-107); Glucose 193 mg/dL (74-99); Potassium 5.3 mmol/L (3.5-5.1); Sodium 143 mmol/L (137-145)
[2018-02-22] MEDS: SYMBICORT 80-4.5 MCG INHALER INHALATION PRN (07:49)
[2018-02-22] MEDS ORDERED: FAMOTIDINE 20 MG TAB PO SCH (09:00)
[2018-02-22] MEDS: ASPIRIN 325 MG TAB PO SCH (09:23)
[2018-02-22] MEDS: SENNOSIDES-DOCUSATE SODIUM 1 EACH TAB PO SCH (09:23)
[2018-02-22] MEDS: DULoxetine HCL 30 MG CAPSULE.DR PO SCH (09:24)
[2018-02-22] MEDS: METOPROLOL TARTRATE 12.5 MG TAB PO SCH (09:24)
[2018-02-22] MEDS: NON-FORMULARY DRUG (Mirabegron [Myrbetriq] 50 MG) PO SCH (09:25)
[2018-02-22 12:00] LABS: Glucose,Whole Blood 222 mg/dL (75-99)
[2018-02-22 12:20] VITALS: BP 139/72; PULSE 82; RESP 16; TEMP 98
--- NOTE | 2018-02-22 14:20 | P.DS ---
Providers Date of admission: 02/20/18 18:34 Attending physician: Patricia Berrios MD Consults: 02/20/18 18:35 Consult Physician Urgent Consulting Provider: Della Rosado Consult Reason/Comments: cva Do you want consulting provider notified?: Yes Primary care physician: Patric Farisa [facility] Course: 71-year-old female with a past medical history of hypertension, diabetes, COPD, multiple PEs, hypothyroidism, presented to the ED due to difficulty with word finding. The patient and noticed that she was having an intact thought process but could not find the right words to explain her thoughts. Symptoms persisted throughout the day and thereby she decided to come to the ED. The patient otherwise denied any weakness, numbness, tingling, blurred vision, or dizziness. The patient was admitted to the hospital for subsequent evaluation of TIA versus CVA. Neurology was consulted and their recommendations were appreciated. Head CT was negative for any acute intracranial abnormalities, and showed cerebral atrophy. Neck CTA was negative for significant stenosis. Echocardiogram showed an LVEF of 55-60% with borderline LVH. The patient is presently stable and ready for discharge to home with outpatient neurology f/u. Procedures: Head CT: Negative for acute intracranial pathology. Cerebral atrophy. CTA neck: No significant stenosis Echocardiogram: LVEF 55-60% w/ borderline LVH Patient Condition at Discharge: Stable Plan - Discharge Summary Discharge Rx Participant: No New Discharge Prescriptions: Continue sitaGLIPtin [Januvia] 100 mg PO DAILY@0800 rOPINIRole HCL [Requip] 3 mg PO HS@2100 DULoxetine HCL [Cymbalta] 30 mg PO BID@0800,1700 Rivaroxaban [Xarelto] 20 mg PO DAILY@1700 Omeprazole [PriLOSEC] 20 mg PO DAILY@0700 Allopurinol [Zyloprim] 100 mg PO DAILY@0800 Levothyroxine Sodium [Synthroid] 100 mcg PO DAILY Atorvastatin [Lipitor] 40 mg PO DAILY@1700 Pregabalin [Lyrica] 200 mg PO BID@0800,2100 Polyethylene Glycol 3350 [Miralax] 17 gm PO DAILY PRN PRN Reason: Constipation L.acidoph,Paracasei, B.lactis [Probiotic] 1 cap PO DAILY Glucerna Shake 1 can PO HS Ferrous Sulfate [Feosol] 325 mg PO W/SUPPER Cyclobenzaprine [Flexeril] 5 mg PO TID PRN PRN Reason: Muscle Spasm Cholecalciferol (Vitamin D3) [Vitamin D3] 4,000 unit PO DAILY@1700 Budesonide/Formoterol Fumarate [Symbicort 80-4.5 Mcg Inhaler] 2 puff INHALATION RT-BID PRN PRN Reason: Shortness Of Breath Amino Acids/Protein Hydrolys [Pro-Stat Supplement] 30 ml PO DAILY@1700 Acetaminophen Tab [Tylenol] 650 mg PO Q6H PRN PRN Reason: Pain Or Fever > 100.5 Ondansetron [Zofran] 4 mg PO Q8HR PRN PRN Reason: Nausea Albuterol Inhaler [Ventolin Hfa Inhaler] 2 puff INHALATION RT-Q4H PRN PRN Reason: Shortness Of Breath Sennosides/Docusate Sodium [Shayy Colace] 2 tab PO DAILY Insulin Lispro [humaLOG Kwikpen] 6 unit SQ AC-TID Mirabegron [Myrbetriq] 50 mg PO DAILY Miconazole Nitrate [Lotrimin AF Powder] 1 applic TOPICAL BID Aspirin EC [Ecotrin Low Dose] 81 mg PO DAILY@1700 Furosemide [Lasix] 40 mg PO DAILY #30 tablet HYDROcodone/APAP 10-325MG [[place] 10-325] 1 tab PO Q4HR PRN #20 tab PRN Reason: Pain clonazePAM [KlonoPIN] 0.25 mg PO Q12H PRN PRN Reason: Anxiety Cranberry 425 Cap 425 mg PO W/SUPPER Cranberry Fruit Concentrate [Azo Cranberry] 500 mg PO TID PRN PRN Reason: UTI Diclofenac Sodium [Voltaren Gel] 2 gram TOPICAL TID Loratadine [Claritin] 10 mg PO DAILY PRN PRN Reason: Allergy Symptoms Metoprolol Tartrate [Lopressor] 12.5 mg PO BID@0800,1700 Insulin Detemir [Levemir] 20 unit SQ HS Collagenase [Santyl] 1 applic TOPICAL DAILY Discontinued Potassium Chloride ER [K-Dur 20] 20 meq PO DAILY@1700 Discharge Medication List sitaGLIPtin [Januvia] 100 mg PO DAILY@0800 10/09/13 [History] DULoxetine HCL [Cymbalta] 30 mg PO BID@0800,1700 11/27/15 [History] rOPINIRole HCL [Requip] 3 mg PO HS@2100 16 [History] Rivaroxaban [Xarelto] 20 mg PO DAILY@1700 05/12/16 [History] Allopurinol [Zyloprim] 100 mg PO DAILY@0809/20/16 [History] Levothyroxine Sodium [Synthroid] 100 mcg PO DAILY 09/20/16 [History] Omeprazole [PriLOSEC] 20 mg PO DAILY@0700 09/20/16 [History] Atorvastatin [Lipitor] 40 mg PO DAILY@17005/02/17 [History] Acetaminophen Tab [Tylenol] 650 mg PO Q6H PRN 08/03/17 [History] Amino Acids/Protein Hydrolys [Pro-Stat Supplement] 30 ml PO DAILY@169908/03/17 [History] Budesonide/Formoterol Fumarate [Symbicort 80-4.5 Mcg Inhaler] 2 puff INHALATION RT-BID PRN 08/03/17 [History] Cholecalciferol (Vitamin D3) [Vitamin D3] 4,000 unit PO DAILY@169908/03/17 [ History] Cyclobenzaprine [Flexeril] 5 mg PO TID PRN 08/03/17 [History] Ferrous Sulfate [Feosol] 325 mg PO W/SUPPER 08/03/17 [History] Glucerna Shake 1 can PO HS 08/03/17 [History] L.acidoph,Paracasei, B.lactis [Probiotic] 1 cap PO DAILY 08/03/17 [History] Polyethylene Glycol 3350 [Miralax] 17 gm PO DAILY PRN 08/03/17 [History] Pregabalin [Lyrica] 200 mg PO BID@0800,2100 08/03/17 [History] Albuterol Inhaler [Ventolin Hfa Inhaler] 2 puff INHALATION RT-Q4H PRN 09/07/17 [ History] Insulin Lispro [humaLOG Kwikpen] 6 unit SQ AC-TID 09/07/17 [History] Mirabegron [Myrbetriq] 50 mg PO DAILY 09/07/17 [History] Ondansetron [Zofran] 4 mg PO Q8HR PRN 09/07/17 [History] Sennosides/Docusate Sodium [Shayy Colace] 2 tab PO DAILY 09/07/17 [History] Aspirin EC [Ecotrin Low Dose] 81 mg PO DAILY@1700 09/13/17 [History] Miconazole Nitrate [Lotrimin AF Powder] 1 applic TOPICAL BID 09/13/17 [History] Furosemide [Lasix] 40 mg PO DAILY #30 tablet 09/16/17 [Rx] HYDROcodone/APAP 10-325MG [[place] 10-325] 1 tab PO Q4HR PRN #20 tab 09/18/17 [Rx] Cranberry 425 Cap 425 mg PO W/SUPPER 11/24/17 [History] Cranberry Fruit Concentrate [Azo Cranberry] 500 mg PO TID PRN 11/24/17 [History] Diclofenac Sodium [Voltaren Gel] 2 gram TOPICAL TID 11/24/17 [History] Loratadine [Claritin] 10 mg PO DAILY PRN 11/24/17 [History] Metoprolol Tartrate [Lopressor] 12.5 mg PO BID@0800,1700 11/24/17 [History] clonazePAM [KlonoPIN] 0.25 mg PO Q12H PRN 11/24/17 [History] Collagenase [Santyl] 1 applic TOPICAL DAILY 02/20/18 [History] Insulin Detemir [Levemir] 20 unit SQ HS 02/20/18 [History] Follow up Appointment(s)/Referral(s): Patric Richard MD [Primary Care Provider] - 1-2 days Della Rosado MD [STAFF PHYSICIAN] - 3 Days Discharge Disposition: HOME SELF-CARE
--- NOTE | 2018-02-23 10:49 | EEG ---
ELECTROENCEPHALOGRAM REPORT DATE OF SERVICE: 02/22/2018 REASON FOR TESTING: Stroke. DESCRIPTION OF THE PROCEDURE: This EEG was performed using a 21 channel digital electroencephalograph, following international 10-20 system. DESCRIPTION OF THE RECORDING: From the beginning of the tracing, with patient's eyes closed, the background rhythm was mostly consisting of 8 Hz alpha frequency in the posterior occipital leads. No obvious asymmetry is seen. Photic stimulation was performed with a good driving response seen. No pathological waves were elicited. Occasional muscle and movement artifacts are seen. Hyperventilation was not performed. The patient remains awake throughout the tracing. No epileptiform discharges were seen. Her EKG lead showed a regular rate and rhythm. INTERPRETATION: This awake EEG can be considered within normal limits. There was no asymmetry seen. No epileptiform discharges were noticed. The absence of epileptiform discharges does not rule out the diagnosis of epilepsy; therefore clinical correlation is recommended. PHYLLIS / ALICE: [id number] /
== END 2018-02-22 16:00 | disposition home or self-care (01) ==
LOC: EC 16:14 → 6SEL 18:34
PROVIDERS: ADMIT Internal Medicine; ATTEND Internal Medicine
DX: G45.9 Transient cerebral ischemic attack, unspecified (principal); E11.649 Type 2 diabetes mellitus with hypoglycemia without coma; I10 Essential (primary) hypertension; Z86.711 Personal history of pulmonary embolism; E03.9 Hypothyroidism, unspecified; J44.9 Chronic obstructive pulmonary disease, unspecified; Z79.4 Long term (current) use of insulin; E66.01 Morbid (severe) obesity due to excess calories; E78.5 Hyperlipidemia, unspecified; E86.0 Dehydration; N17.0 Acute kidney failure with tubular necrosis; R47.01 Aphasia; F32.9 Major depressive disorder, single episode, unspecified; G25.81 Restless legs syndrome; I65.29 Occlusion and stenosis of unspecified carotid artery; M06.9 Rheumatoid arthritis, unspecified; Z79.01 Long term (current) use of anticoagulants; Z85.72 Personal history of non-Hodgkin lymphomas; Z86.718 Personal history of other venous thrombosis and embolism; Z87.11 Personal history of peptic ulcer disease; Z87.891 Personal history of nicotine dependence; Z90.49 Acquired absence of other specified parts of digestive tract; Z90.81 Acquired absence of spleen; Z96.651 Presence of right artificial knee joint; Z99.81 Dependence on supplemental oxygen; Z86.73 Personal history of transient ischemic attack (TIA), and cerebral infarction without residual deficits
CPT/HCPCS: 96361 ×3; 96374; 96375; 99285; 36415; 94640 ×4; 95816; 93306; 80061; 80053 ×2; 80048; 82550; 82553; 83735; 84484; 85025 ×2; 85027; 85610; 85730; 81001; 83090; 83036; 71046; 93880; 70450; 70498; G0378 ×3; J1200; J2930; Q9967

== ENCOUNTER 2018-03-07 02:54 | Inpatient (IN) | payer MEDICARE ==
--- NOTE | 2018-03-07 03:49 | ED ---
Weakness HPI - General Chief complaint: Weakness Stated complaint: Weakness Time Seen by Provider: 03/07/18 03:24 Source: patient, family, EMS Mode of arrival: EMS Limitations: physical limitation - History of Present Illness Initial comments: This patient is a 72-year-old woman who presents to be evaluated for generalized weakness. History is from the patient and her who is here with her. They state that the patient has had generalized weakness and has not been able to get out of bed, including not being able to keep physician's appointment. The patient reportedly had received a flu shot on February 27, and then the following day began having weakness. For approximately the past 1 week she is not able to get out of bed. Patient is denying chest pain or dyspnea. No abdominal pain. No vomiting or diarrhea. MD Complaint: generalized weakness Onset/Timin -: week(s) Location: generalized Severity: severe Consistency: constant Improves with: none Worsens with: movement Context: history of similar Associated Symptoms: denies other symptoms - Related Data Home Medications Medication Instructions Recorded Confirmed sitaGLIPtin [Januvia] 100 mg PO DAILY@0800 10/09/13 03/07/18 DULoxetine HCL [Cymbalta] 30 mg PO BID@0800,1700 11/27/15 03/07/18 rOPINIRole HCL [Requip] 3 mg PO HS@2100 11/27/15 03/07/18 Rivaroxaban [Xarelto] 20 mg PO DAILY@1700 05/12/16 03/07/18 Allopurinol [Zyloprim] 100 mg PO DAILY@0800 09/20/16 03/07/18 Levothyroxine Sodium [Synthroid] 100 mcg PO DAILY 09/20/16 03/07/18 Omeprazole [PriLOSEC] 20 mg PO DAILY@0700 09/20/16 03/07/18 Atorvastatin [Lipitor] 40 mg PO DAILY@1700 05/02/17 03/07/18 Acetaminophen Tab [Tylenol] 650 mg PO Q6H PRN 08/03/17 03/07/18 Amino Acids/Protein Hydrolys 30 ml PO DAILY@1700 08/03/17 03/07/18 [Pro-Stat Supplement] Budesonide/Formoterol Fumarate 2 puff INHALATION RT-BID PRN 08/03/17 03/07/18 [Symbicort 80-4.5 Mcg Inhaler] Cholecalciferol (Vitamin D3) 4,000 unit PO DAILY@1700 08/03/17 03/07/18 [Vitamin D3] Cyclobenzaprine [Flexeril] 5 mg PO TID PRN 08/03/17 03/07/18 Ferrous Sulfate [Feosol] 325 mg PO W/SUPPER 08/03/17 03/07/18 Glucerna Shake 1 can PO HS 08/03/17 03/07/18 L.acidoph,Paracasei, B.lactis 1 cap PO DAILY 08/03/17 03/07/18 [Probiotic] Polyethylene Glycol 3350 [Miralax] 17 gm PO DAILY PRN 08/03/17 03/07/18 Pregabalin [Lyrica] 200 mg PO BID@0800,2100 08/03/17 03/07/18 Albuterol Inhaler [Ventolin Hfa 2 puff INHALATION RT-Q4H PRN 09/07/17 03/07/18 Inhaler] Insulin Lispro [humaLOG Kwikpen] 6 unit SQ AC-TID 09/07/17 03/07/18 Mirabegron [Myrbetriq] 50 mg PO DAILY 09/07/17 03/07/18 Ondansetron [Zofran] 4 mg PO Q8HR PRN 09/07/17 03/07/18 Sennosides/Docusate Sodium [Shayy 2 tab PO DAILY 09/07/17 03/07/18 Colace] Aspirin EC [Ecotrin Low Dose] 81 mg PO DAILY@1700 09/13/17 03/07/18 Miconazole Nitrate [Lotrimin AF 1 applic TOPICAL BID 09/13/17 03/07/18 Powder] Cranberry 425 Cap 425 mg PO W/SUPPER 11/24/17 03/07/18 Cranberry Fruit Concentrate [Azo 500 mg PO TID PRN 11/24/17 03/07/18 Cranberry] Diclofenac Sodium [Voltaren Gel] 2 gram TOPICAL TID 11/24/17 03/07/18 Loratadine [Claritin] 10 mg PO DAILY PRN 11/24/17 03/07/18 Metoprolol Tartrate [Lopressor] 12.5 mg PO BID@0800,1700 11/24/17 03/07/18 clonazePAM [KlonoPIN] 0.25 mg PO Q12H PRN 11/24/17 03/07/18 Collagenase [Santyl] 1 applic TOPICAL DAILY 02/20/18 03/07/18 Insulin Detemir [Levemir] 20 unit SQ HS 02/20/18 03/07/18 Previous Rx's Medication Instructions Recorded Furosemide [Lasix] 40 mg PO DAILY #30 tablet 09/16/17 HYDROcodone/APAP 10-325MG [[place] 1 tab PO Q4HR PRN #20 tab 09/18/17 10-325] Allergies Allergy/AdvReac Type Severity Reaction Status Date / Time Iodinated Contrast- Oral and Allergy Unknown Verified 03/07/18 06:55 IV Dye iodine Allergy Unknown Verified 03/07/18 06:55 Review of Systems ROS Statement: Those systems with pertinent positive or pertinent negative responses have been documented in the HPI. ROS Other: All systems not noted in ROS Statement are negative. Limitations: ROS unobtainable due to patients medical condition (Poor historian) Constitutional: Reports: weakness (Generalized). Denies: fever Respiratory: Denies: cough, dyspnea, wheezes Cardiovascular: Denies: chest pain, palpitations, edema, syncope Gastrointestinal: Denies: abdominal pain, nausea, vomiting, diarrhea Genitourinary: Denies: dysuria, hematuria Musculoskeletal: Denies: back pain Skin: Denies: rash Neurological: Denies: headache, weakness, numbness Past Medical History Past Medical History: Cancer, COPD, Diabetes Mellitus, Deep Vein Thrombosis (DVT ), Hyperlipidemia, Hypertension, Pneumonia, Pulmonary Embolus (PE), Rheumatoid Arthritis (RA), Skin Disorder, Thyroid Disorder Additional Past Medical History / Comment(s): .mult ulcers to stomach,chest and breast-unk cause has had for over a yr-seen at [facility][id number] with spleenectomy and radiation,DVTs & PE yrs ago.Uses walker and w/c. fractured ankle right june 2017 History of Any Multi-Drug Resistant Organisms: None Reported Past Surgical History: Appendectomy, Section, Cholecystectomy, Orthopedic Surgery Additional Past Surgical History / Comment(s): total rt knee Jan 2017, Splenectomy, Carpal tunnel release, rotator cuff, right bimalleolar fracture repair 06/2017 Past Anesthesia/Blood Transfusion Reactions: No Reported Reaction Past Psychological History: Depression Smoking Status: Former smoker Past Alcohol Use History: None Reported Past Drug Use History: None Reported - Past Family History Father Family Medical History: No Reported History Additional Family Medical History / Comment(s): Father was healthy and lived to be 88yrs old. Mother Family Medical History: No Reported History Additional Family Medical History / Comment(s): Pt states mother was healthy and lived to be 90yrs old. Son(s) Family Medical History: No Reported History Additional Family Medical History / Comment(s): She relates that her parents of old age her mother was about 90 father was 88, without sniffing and medical troubles. She does relate that her son committed suicide but her daughter is quite healthy. General Exam Limitations: no limitations General appearance: alert, in no apparent distress, obese Head exam: Present: atraumatic, normocephalic Eye exam: Present: normal appearance. Absent: scleral icterus, conjunctival injection Neck exam: Present: normal inspection, full ROM Respiratory exam: Present: normal lung sounds bilaterally, rales (Bilateral bases). Absent: respiratory distress, wheezes, rhonchi, stridor Cardiovascular Exam: Present: normal rhythm, tachycardia (Rate approximately 105 bpm), normal heart sounds. Absent: systolic murmur, diastolic murmur, rubs , gallop GI/Abdominal exam: Present: soft. Absent: distended, tenderness, guarding, rebound, mass Extremities exam: Present: normal inspection, normal capillary refill. Absent: pedal edema, calf tenderness Neurological exam: Present: alert, oriented X3, CN II-XII intact. Absent: motor sensory deficit Skin exam: Present: warm, dry, intact, normal color. Absent: rash Course Vital Signs 03/07/18 03/07/18 03/07/18 02:57 03:14 04:16 Temperature 98.7 F Pulse Rate 105 H 100 Respiratory 20 20 Rate Blood Pressure 166/102 163/111 O2 Sat by Pulse 95 Oximetry 03/07/18 03/07/18 03/07/18 05:48 05:55 05:58 Temperature Pulse Rate 96 98 Respiratory 20 20 Rate Blood Pressure 51/33 64/41 O2 Sat by Pulse 89 L Oximetry 03/07/18 03/07/18 03/07/18 06:17 07:43 07:52 Temperature Pulse Rate 98 94 97 Respiratory 22 18 18 Rate Blood Pressure 97/53 96/51 O2 Sat by Pulse 93 L 94 L 96 Oximetry EKG Findings - EKG Comments: EKG Findings:: Pulmonary disease pattern - EKG Results: EKG: interpreted by NABIL, sinus rhythm EKG shows: tachycardia (Rate 105 bpm) - Blocks, [place], Hypertrophy, ST Abn: AV and intraventricular conduction: left anterior fascicular block Medical Decision Making - Medical Decision Making Patient is 72-year-old woman presenting with generalized weakness, found to have significant urinary tract infection as well as having large amounts of diarrhea. She has received 2 L fluid bolus here and blood pressure is still marginal, therefore Levophed is started area case discussed with and will admit the patient to ICU. Stool studies are pending - Lab Data Result diagrams: 03/07/18 03:48 03/07/18 03:48 Lab Results 03/07/18 03/07/18 03/07/18 Range/Units 03:48 03:48 03:48 WBC 18.6 H (3.8-10.6) k/uL RBC 5.02 (3.80-5.40) m/uL Hgb 15.9 (11.4-16.0) gm/dL Hct 50.3 H (34.0-46.0) % MCV 100.3 H (80.0-100.0) fL MCH 31.6 (25.0-35.0) pg MCHC 31.5 (31.0-37.0) g/dL RDW 17.4 H (11.5-15.5) % Plt Count 272 (150-450) k/uL Neutrophils % 88 % Lymphocytes % 7 % Monocytes % 4 % Eosinophils % 1 % Basophils % 0 % Neutrophils # 16.3 H (1.3-7.7) k/uL Lymphocytes # 1.4 (1.0-4.8) k/uL Monocytes # 0.7 (0-1.0) k/uL Eosinophils # 0.1 (0-0.7) k/uL Basophils # 0.1 (0-0.2) k/uL Hypochromasia Moderate Anisocytosis Slight Macrocytosis Slight PT (9.0-12.0) sec INR (<1.2) APTT (22.0-30.0) sec Sodium 137 (137-145) mmol/L Potassium 5.0 (3.5-5.1) mmol/L Chloride 105 (98-107) mmol/L Carbon Dioxide 20 L (22-30) mmol/L Anion Gap 12 mmol/L BUN 49 H (7-17) mg/dL Creatinine 3.81 H (0.52-1.04) mg/dL Est GFR (CKD-EPI)AfAm 13 (>60 ml/min/1.73 sqM) Est GFR (CKD-EPI)NonAf 11 (>60 ml/min/1.73 sqM) Glucose 149 H (74-99) mg/dL Plasma Lactic Acid Gee (0.7-2.0) mmol/L Calcium 10.6 H (8.4-10.2) mg/dL Magnesium 2.5 H (1.6-2.3) mg/dL Total Bilirubin 0.7 (0.2-1.3) mg/dL AST 33 (14-36) U/L ALT 28 (9-52) U/L Alkaline Phosphatase 96 (38-126) U/L Total Creatine Kinase 157 H (30-135) U/L CK-MB (CK-2) 1.6 (0.0-2.4) ng/mL CK-MB (CK-2) Rel Index 1.0 Troponin I <0.012 (0.000-0.034) ng/mL Total Protein 6.8 (6.3-8.2) g/dL Albumin 3.6 (3.5-5.0) g/dL Urine Color Urine Appearance (Clear) Urine pH (5.0-8.0) Ur Specific [place] (1.001-1.035) Urine Protein (Negative) Urine Glucose (UA) (Negative) Urine Ketones (Negative) Urine Blood (Negative) Urine Nitrite (Negative) Urine Bilirubin (Negative) Urine Urobilinogen (<2.0) mg/dL Ur Leukocyte Esterase (Negative) Urine RBC (0-5) /hpf Urine WBC (0-5) /hpf Ur Squamous Epith Cells (0-4) /hpf Amorphous Sediment (None) /hpf Urine Bacteria (None) /hpf Urine Mucus (None) /hpf 03/07/18 03/07/18 03/07/18 Range/Units 03:48 03:48 05:25 WBC (3.8-10.6) k/uL RBC (3.80-5.40) m/uL Hgb (11.4-16.0) gm/dL Hct (34.0-46.0) % MCV (80.0-100.0) fL MCH (25.0-35.0) pg MCHC (31.0-37.0) g/dL RDW (11.5-15.5) % Plt Count (150-450) k/uL Neutrophils % % Lymphocytes % % Monocytes % % Eosinophils % % Basophils % % Neutrophils # (1.3-7.7) k/uL Lymphocytes # (1.0-4.8) k/uL Monocytes # (0-1.0) k/uL Eosinophils # (0-0.7) k/uL Basophils # (0-0.2) k/uL Hypochromasia Anisocytosis Macrocytosis PT 12.8 H (9.0-12.0) sec INR 1.4 H (<1.2) APTT 30.1 H (22.0-30.0) sec Sodium (137-145) mmol/L Potassium (3.5-5.1) mmol/L Chloride (98-107) mmol/L Carbon Dioxide (22-30) mmol/L Anion Gap mmol/L BUN (7-17) mg/dL Creatinine (0.52-1.04) mg/dL Est GFR (CKD-EPI)AfAm (>60 ml/min/1.73 sqM) Est GFR (CKD-EPI)NonAf (>60 ml/min/1.73 sqM) Glucose (74-99) mg/dL Plasma Lactic Acid Gee 1.9 (0.7-2.0) mmol/L Calcium (8.4-10.2) mg/dL Magnesium (1.6-2.3) mg/dL Total Bilirubin (0.2-1.3) mg/dL AST (14-36) U/L ALT (9-52) U/L Alkaline Phosphatase (38-126) U/L Total Creatine Kinase (30-135) U/L CK-MB (CK-2) (0.0-2.4) ng/mL CK-MB (CK-2) Rel Index Troponin I (0.000-0.034) ng/mL Total Protein (6.3-8.2) g/dL Albumin (3.5-5.0) g/dL Urine Color Yellow Urine Appearance Turbid H (Clear) Urine pH 5.5 (5.0-8.0) Ur Specific [place] 1.015 (1.001-1.035) Urine Protein 1+ H (Negative) Urine Glucose (UA) Negative (Negative) Urine Ketones Negative (Negative) Urine Blood Small H (Negative) Urine Nitrite Negative (Negative) Urine Bilirubin Negative (Negative) Urine Urobilinogen <2.0 (<2.0) mg/dL Ur Leukocyte Esterase Large H (Negative) Urine RBC 32 H (0-5) /hpf Urine WBC 150 H (0-5) /hpf Ur Squamous Epith Cells 136 H (0-4) /hpf Amorphous Sediment Rare H (None) /hpf Urine Bacteria Many H (None) /hpf Urine Mucus Occasional H (None) /hpf Disposition Clinical Impression: Generalized weakness, Acute kidney injury Disposition: ADMITTED IP TO THIS [facility] Condition: Poor Is patient prescribed a controlled substance at d/c from ED?: No
--- NOTE | 2018-03-07 04:16 | XR ---
EXAM: XR Chest, 2 Views CLINICAL HISTORY: ITS.REASON XR Reason: Weakness TECHNIQUE: Frontal and lateral views of the chest. COMPARISON: Chest radiograph on 02/20/2018 FINDINGS: Hardware: None. Lungs/pleura: Stable mild elevation of the right hemidiaphragm. Mild bibasilar atelectasis. No focal consolidation. No pleural effusion or pneumothorax. Question mild pulmonary vasculature congestion. Heart/mediastinum: Normal. No cardiomegaly. Soft tissues: Unremarkable. Bones: No acute fracture. Degenerative changes of the acromioclavicular joints and spine. Osteopenia. Upper abdomen: Normal. IMPRESSION: Bibasilar atelectasis. Question mild pulmonary vasculature congestion. No other acute disease.
[2018-03-07 04:18] LABS: Anisocytosis Slight; Basophils # (A) 0.1 k/uL (0-0.2); Basophils % (A) 0 %; Eosinophils # (A) 0.1 k/uL (0-0.7); Eosinophils % (A) 1 %; HCT 50.3 % (34.0-46.0); HGB 15.9 gm/dL (11.4-16.0); Hypochromasia Moderate; Lymphocytes # (A) 1.4 k/uL (1.0-4.8); Lymphocytes % (A) 7 %; MCH 31.6 pg (25.0-35.0); MCHC 31.5 g/dL (31.0-37.0); MCV 100.3 fL (80.0-100.0); Macrocytosis Slight; Mean Platelet Volume 8.1; Monocytes # (A) 0.7 k/uL (0-1.0); Monocytes % (A) 4 %; Neutrophils # (A) 16.3 k/uL (1.3-7.7); Neutrophils % (A) 88 %; Platelet Count 272 k/uL (150-450); RBC 5.02 m/uL (3.80-5.40); RDW 17.4 % (11.5-15.5); WBC 18.6 k/uL (3.8-10.6)
[2018-03-07 04:23] LABS: Albumin 3.6 g/dL (3.5-5.0); Calcium 10.6 mg/dL (8.4-10.2); Magnesium 2.5 mg/dL (1.6-2.3); Total Bilirubin 0.7 mg/dL (0.2-1.3); Total Protein 6.8 g/dL (6.3-8.2)
[2018-03-07 04:24] LABS: INR 1.4 (<1.2); Partial Thromboplastin Time 30.1 sec (22.0-30.0); Prothrombin Time 12.8 sec (9.0-12.0)
[2018-03-07 04:36] LABS: Creatine Kinase 157 U/L (30-135)
[2018-03-07 04:49] LABS: Creatine Kinase MB 1.6 ng/mL (0.0-2.4); Troponin I <0.012 ng/mL (0.000-0.034)
[2018-03-07 06:20] LABS: Amorphous Sediment,Urine Rare /hpf; Appearance,Urine Turbid (Clear); Bacteria,Urine Many /hpf; Bilirubin,Urine Negative (Negative); Blood,Urine Small (Negative); Color,Urine Yellow; Glucose,Urine (UA) Negative (Negative); Ketones,Urine Negative (Negative); Leukocyte Esterase,Urine Large (Negative); Mucus,Urine Occasional /hpf; Nitrite,Urine Negative (Negative); PH, Urine 5.5 (5.0-8.0); Protein,Urine 1+ (Negative); RBC,Urine 32 /hpf (0-5); Specific Gravity,Urine 1.015 (1.001-1.035); Squamous Epithelial Cell,Urine 136 /hpf (0-4); Urobilinogen,Urine <2.0 mg/dL (<2.0); WBC,Urine 150 /hpf (0-5)
[2018-03-07] MEDS ORDERED: SODIUM CHLORIDE 0.9% 2,000 ML IV ONE (06:23)
[2018-03-07] MEDS ORDERED: LEVOFLOXACIN 750MG-D5W PMX 750 MG in DEXTROSE/WATER 1 150ML.BAG IVPB STA (06:24)
[2018-03-07] MEDS ORDERED: NALOXONE 0.4 MG/ML 1 ML VIAL IV PRN (06:25)
[2018-03-07] MEDS ORDERED: ACETAMINOPHEN TAB 325 MG TAB PO PRN (06:25)
[2018-03-07] MEDS: SODIUM CHLORIDE 0.9% 1,000 ML IV SCH ×2 (06:34→14:46)
[2018-03-07] MEDS: LEVOFLOXACIN 750MG-D5W PMX 750 MG in DEXTROSE/WATER 1 150ML.BAG IVPB SCH ×2 (07:21→07:29)
[2018-03-07] MEDS ORDERED: NOREPINEPHRINE 4 MG in SODIUM CHLORIDE 0.9% 250 ML IV STA (07:26)
[2018-03-07] MEDS ORDERED: FAMOTIDINE 20 MG TAB PO SCH (09:00)
[2018-03-07] MEDS ORDERED: clonazePAM 0.5 MG TAB PO PRN (12:47)
[2018-03-07] MEDS ORDERED: CYCLOBENZAPRINE 5 MG TAB PO PRN (12:47)
--- NOTE | 2018-03-07 14:06 | P.CNPUL ---
History of Present Illness Consult date: 03/07/18 Chief complaint: Hypotension, generalized weakness History of present illness: 72-year-old morbidly obese female patient presented emergency department today with generalized weakness. The patient is bedridden and she has difficulty with mobility. The patient has multiple medical problems that she is morbidly obesity BMI 48.8. She has had multiple episodes of urine checked infections in the past including infections with Morganella morganii and E. coli and enterococcus. In the emergency department, the patient was found to be quite dehydrated, she was an acute kidney injury with a creatinine of 2.8 and a BUN of 48. She has some leukocytosis with a white cell count of 18.6. UA was consistent with underlying urine checked infection. She was afebrile yet subsequently she had hypotension. She was given a total of 2 L of IV fluid and following that she was started on pressors and currently she is on 4 g of norepinephrine infusion. Antibiotic coverage including a combination of Zosyn and Levaquin for now. The choice of Zosyn was mainly to cover gram-negative bacteria that were resistant to Rocephin in the past. Lactic acid level was around 1.9. She was able to communicate and she denies having any nausea or vomiting or abdominal pain. No emesis. No angina. No other complaints otherwise for now. Review of Systems A 12 point review of system was done. The patient is unable to ambulate. She had history of lower extremity ulceration being seen in the wound center in the past. She has had multiple admissions in the past for recurrent urine checked infection. No chest pain. No angina. No altered mentation. No nausea. No vomiting. No bright red blood per rectum. Constitutional: Reports daytime sleepiness, Reports fatigue, Reports poor appetite, Reports weakness, Reports weight gain Eyes: denies blurred vision, denies bulging eye, denies decreased vision Ears: deny: decreased hearing, ear discharge, earache, tinnitus Ears, nose, mouth and throat: Reports as per HPI Cardiovascular: Denies chest pain, Denies shortness of breath Respiratory: Reports as per HPI Gastrointestinal: Reports as per HPI Genitourinary: Reports as per HPI Menstruation: Reports as per HPI Musculoskeletal: bilateral: ankle stiffness, ankle swelling, absent: ankle pain Integumentary: Reports as per HPI Neurological: Reports as per HPI Psychiatric: Reports as per HPI Past Medical History Past Medical History: Cancer, COPD, Diabetes Mellitus, Deep Vein Thrombosis (DVT ), Hyperlipidemia, Hypertension, Pneumonia, Pulmonary Embolus (PE), Rheumatoid Arthritis (RA), Skin Disorder, Thyroid Disorder Additional Past Medical History / Comment(s): Morbid obesity, COPD, diabetes mellitus, remote history of DVT and pulmonary embolism, hypertension, hyperlipidemia, hypothyroidism, rheumatoid arthritis, history of fracture of the right lower extremity requiring surgery, right lower extremity wound that has healed, previous history of Hodgkin's lymphoma treated with a splenectomy and subsequent radiation therapy in 1993, chronic hypoxic respiratory failure patient on oxygen at 2 L overnight, 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 Past Anesthesia/Blood Transfusion Reactions: No Reported Reaction Smoking Status: Former smoker - Past Family History Father Family Medical History: No Reported History Additional Family Medical History / Comment(s): Father was healthy and lived to be 88yrs old. Mother Family Medical History: No Reported History Additional Family Medical History / Comment(s): Pt states mother was healthy and lived to be 90yrs old. Son(s) Family Medical History: No Reported History Additional Family Medical History / Comment(s): She relates that her parents of old age her mother was about 90 father was 88, without sniffing and medical troubles. She does relate that her son committed suicide but her daughter is quite healthy. Medications and Allergies Home Medications Medication Instructions Recorded Confirmed Type sitaGLIPtin [Januvia] 100 mg PO DAILY@0800 10/09/13 03/07/18 History DULoxetine HCL [Cymbalta] 30 mg PO BID@0800,1700 11/27/15 03/07/18 History rOPINIRole HCL [Requip] 3 mg PO HS@2100 11/27/15 03/07/18 History Rivaroxaban [Xarelto] 20 mg PO DAILY@1700 05/12/16 03/07/18 History Allopurinol [Zyloprim] 100 mg PO DAILY@0800 09/20/16 03/07/18 History Levothyroxine Sodium [Synthroid] 100 mcg PO DAILY 09/20/16 03/07/18 History Omeprazole [PriLOSEC] 20 mg PO DAILY@0700 09/20/16 03/07/18 History Atorvastatin [Lipitor] 40 mg PO DAILY@1700 05/02/17 03/07/18 History Acetaminophen Tab [Tylenol] 650 mg PO Q6H PRN 08/03/17 03/07/18 History Amino Acids/Protein Hydrolys 30 ml PO DAILY@1700 08/03/17 03/07/18 History [Pro-Stat Supplement] Budesonide/Formoterol Fumarate 2 puff INHALATION RT-BID PRN 08/03/17 03/07/18 History [Symbicort 80-4.5 Mcg Inhaler] Cholecalciferol (Vitamin D3) 4,000 unit PO DAILY@1700 08/03/17 03/07/18 History [Vitamin D3] Cyclobenzaprine [Flexeril] 5 mg PO TID PRN 08/03/17 03/07/18 History Ferrous Sulfate [Feosol] 325 mg PO W/SUPPER 08/03/17 03/07/18 History Glucerna Shake 1 can PO HS 08/03/17 03/07/18 History L.acidoph,Paracasei, B.lactis 1 cap PO DAILY 08/03/17 03/07/18 History [Probiotic] Polyethylene Glycol 3350 [Miralax] 17 gm PO DAILY PRN 08/03/17 03/07/18 History Pregabalin [Lyrica] 200 mg PO BID@0800,2100 08/03/17 03/07/18 History Albuterol Inhaler [Ventolin Hfa 2 puff INHALATION RT-Q4H PRN 09/07/17 03/07/18 History Inhaler] Insulin Lispro [humaLOG Kwikpen] 6 unit SQ AC-TID 09/07/17 03/07/18 History Mirabegron [Myrbetriq] 50 mg PO DAILY 09/07/17 03/07/18 History Ondansetron [Zofran] 4 mg PO Q8HR PRN 09/07/17 03/07/18 History Sennosides/Docusate Sodium [Shayy 2 tab PO DAILY 09/07/17 03/07/18 History Colace] Aspirin EC [Ecotrin Low Dose] 81 mg PO DAILY@1700 09/13/17 03/07/18 History Miconazole Nitrate [Lotrimin AF 1 applic TOPICAL BID 09/13/17 03/07/18 History Powder] Furosemide [Lasix] 40 mg PO DAILY #30 tablet 09/16/17 03/07/18 Rx HYDROcodone/APAP 10-325MG [[place] 1 tab PO Q4HR PRN #20 tab 09/18/17 03/07/18 Rx 10-325] Cranberry 425 Cap 425 mg PO W/SUPPER 11/24/17 03/07/18 History Cranberry Fruit Concentrate [Azo 500 mg PO TID PRN 11/24/17 03/07/18 History Cranberry] Diclofenac Sodium [Voltaren Gel] 2 gram TOPICAL TID 11/24/17 03/07/18 History Loratadine [Claritin] 10 mg PO DAILY PRN 11/24/17 03/07/18 History Metoprolol Tartrate [Lopressor] 12.5 mg PO BID@0800,1700 11/24/17 03/07/18 History clonazePAM [KlonoPIN] 0.25 mg PO Q12H PRN 11/24/17 03/07/18 History Collagenase [Santyl] 1 applic TOPICAL DAILY 02/20/18 03/07/18 History Insulin Detemir [Levemir] 20 unit SQ HS 02/20/18 03/07/18 History Allergies Allergy/AdvReac Type Severity Reaction Status Date / Time Iodinated Contrast- Oral and Allergy Unknown Verified 03/07/18 06:55 IV Dye iodine Allergy Unknown Verified 03/07/18 06:55 Physical Exam Vitals: Vital Signs Temp Pulse Resp BP Pulse Ox 03/07/18 12:43 95 18 105/54 98 03/07/18 12:12 96 18 75/51 93 L 03/07/18 11:17 95 18 138/62 94 L 03/07/18 10:43 83 18 112/65 84 L 03/07/18 09:22 96 18 67/45 100 03/07/18 08:54 97 18 94/52 94 L 03/07/18 08:38 97 18 123/57 94 L 03/07/18 08:09 98 18 124/59 96 03/07/18 07:52 97 18 96/51 96 03/07/18 07:43 94 18 97/53 94 L 03/07/18 06:17 98 22 93 L 03/07/18 05:58 98 20 64/41 89 L 03/07/18 05:55 51/33 03/07/18 05:48 96 20 03/07/18 04:16 100 163/111 03/07/18 03:14 20 03/07/18 02:57 98.7 F 105 H 20 166/102 95 Intake and Output 03/06/18 03/07/18 03/07/18 22:59 06:59 14:59 Intake Total 65.171 Output Total 275 Balance -209.829 Intake: Intake, IV Titration 65.171 Amount Norepinephrine 4 mg In 65.171 Sodium Chloride 0.9% 250 ml @ Titrate IV .Q0M STA Rx#:[id number] Output: Urine 275 Uretheral (Blandon) 275 Other: Weight 113.398 kg No acute distress, oriented 3. HEENT examination is grossly unremarkable. Mucous membranes are moist. No oral lesions. Neck supple. Full range of motion. No adenopathy thyromegaly or neck vein distention. Cardiovascular examination reveals regular rhythm rate. S1-S2 normal. No S3 or S4. No discernible murmur noted. Lungs reveal clear breath sounds. Her sounds are equal bilaterally. No adventitious lung sounds including wheezes rhonchi or crackles. Abdomen soft bowel sounds are heard. No masses or tenderness.Abdominal exam revealed normal bowel sounds. The abdomen was soft, non-tender, and without masses, organomegaly, or appreciable enlargement of the abdominal aorta. Extremities are intact. No cyanosis clubbing. Small healed ulcer on the anterior surface of the right mid leg, there is trace edema lower extremities bilaterally. Pulses are diminished at the present. Skin is without rash or lesion. Neurologic examination is brief but nonfocal. The patient is awake and alert and the patient is following commands and answering questions appropriately. Psychiatric evaluation is negative for an acute anxiety panic or depression. Results - Laboratory Findings CBC and BMP: 03/07/18 03:48 03/07/18 03:48 PT/INR, D-dimer PT 12.8 sec (9.0-12.0) H 03/07/18 03:48 INR 1.4 (<1.2) H 03/07/18 03:48 Abnormal lab findings: Abnormal Labs 03/07/18 03/07/18 03/07/18 03:48 03:48 03:48 WBC 18.6 H Hct 50.3 H MCV 100.3 H RDW 17.4 H Neutrophils # 16.3 H PT INR APTT Carbon Dioxide 20 L BUN 49 H Creatinine 3.81 H Glucose 149 H Calcium 10.6 H Magnesium 2.5 H Total Creatine Kinase 157 H Urine Appearance Urine Protein Urine Blood Ur Leukocyte Esterase Urine RBC Urine WBC Ur Squamous Epith Cells Amorphous Sediment Urine Bacteria Urine Mucus Stool Occult Blood 03/07/18 03/07/18 03/07/18 03:48 05:25 07:10 WBC Hct MCV RDW Neutrophils # PT 12.8 H INR 1.4 H APTT 30.1 H Carbon Dioxide BUN Creatinine Glucose Calcium Magnesium Total Creatine Kinase Urine Appearance Turbid H Urine Protein 1+ H Urine Blood Small H Ur Leukocyte Esterase Large H Urine RBC 32 H Urine WBC 150 H Ur Squamous Epith Cells 136 H Amorphous Sediment Rare H Urine Bacteria Many H Urine Mucus Occasional H Stool Occult Blood Positive H - Diagnostic Findings Chest x-ray: image reviewed Assessment and Plan Plan: Assessment 1 acute urinary tract infection with sepsis. Patient has been infected with gram-negative bacteria in the past essentially secondary to E. coli and Morganella. She's been also infected with enterococcus. Recurrent urine checked infection suspected as being the source of sepsis. 2 sepsis with secondary hypotension related to urine tract infection 3 leukocytosis secondary to above 4 acute kidney injury probably secondary to intravascular volume depletion / dehydration 5 morbid obesity with a BMI of 48.8 6 COPD 7 diabetes mellitus 8 history of recurrent DVT and pulmonary embolism 9 hypertension 10 hyperlipidemia 11 hypothyroidism 12 rheumatoid arthritis 15 chronic hypoxic respiratory failure and the patient has been using oxygen overnight at 2 L per minute nasal cannula 14 history of Hodgkin's lymphoma with a previous splenectomy, 1993 15 recurrent UTIs 16 peripheral neuropathy involving lower extremities 17 chronic lower extremity edema 18 degenerative arthritis 19 chronic back pain and pain in general 20 RLS 21 hypothyroidism 22 very poor performance status and the patient is not mandatory at this point Plan Continue IV fluids and the patient is currently on normal saline at the rate of 100 mL an hour after being given a total of 3 L of IV fluids. Zosyn and Levaquin as an empiric antibiotic coverage. Obtain urine cultures. Obtain blood cultures. Monitor renal function and a Blandon catheter was inserted and the patient is producing adequate amount of urine for now. Outpatient medication resumed with exception of Xarelto which will be kept on hold based on the underlying renal failure. We'll also hold the metoprolol for now to the patient is off pressors. We'll wean off the norepinephrine infusion to maintain a mean arterial pressure above 65. The patient will be brought in to the intensive care unit as long as she is pressor dependent. We'll monitor renal function. Blood cultures. Urine cultures. We'll continue to follow. Time with Patient: Greater than 30
[2018-03-07] MEDS: PIPERACILLIN-TAZOBACTAM 3.375 GM in DEXTROSE/WATER 1 50ML.BAG IVPB SCH ×2 (14:45→21:06)
--- NOTE | 2018-03-07 15:21 | CONS ---
CONSULTATION REASON FOR CONSULT: Renal failure. HISTORY OF PRESENT ILLNESS: Patient is a 72-year-old female who was admitted to the hospital with complaints of weakness, not feeling well. She had significant diarrhea in the ER. Patient's serum creatinine was at 3.8 mg/dL today. Her previous creatinine was 0.75 on 02/22/2018. Patient was hypotensive. She has received about 2 L of fluid bolus and is almost done with the third liter of fluid bolus. She is maintained on Levophed at about 5 mcg. At this time, patient has not voided. A Blandon catheter will be placed. There is no ongoing fever. PAST MEDICAL HISTORY: Significant for hypertension, COPD, type 2 diabetes, history of DVT, hyperlipidemia, rheumatoid arthritis, hypothyroidism, previous history of PE, history of Hodgkin lymphoma, peripheral neuropathy, previous history of UTI, osteoarthritis, chronic back pain. PAST SURGICAL HISTORY: Appendectomy, , cholecystectomy, right knee arthroplasty, rotator cuff repair, splenectomy, EGD, colonoscopies, carpal tunnel release. SOCIAL HISTORY: Patient is a former smoker. No history of drug abuse or alcohol abuse. MEDICATIONS: At home included Januvia, Cymbalta, Requip, Xarelto, Zyloprim, Prilosec, Synthroid, Lipitor, Flexeril, iron, MiraLAX, Lyrica, insulin, Zofran, aspirin, Lasix, metoprolol, Klonopin, Claritin. ALLERGIES: Include IV DYE. PHYSICAL EXAMINATION: Currently patient is sleeping. She is arousable, comfortable, not in any acute distress. Patient is not able to provide a detailed history as she goes back to sleep. Blood pressure was 112/65, heart rate 83 per minute, patient is afebrile. Examination of the heart, S1, S2. Examination of the lungs, decreased breath sounds at the bases. Abdomen is soft, obese, nontender. Examination of the lower extremities shows no significant edema. COFFEE BLENDER exam shows patient moving all 4 extremities. LABS: Show sodium 137, potassium 5.0, BUN 49, serum creatinine 3.8, lactic acid of 1.9. UA shows 1+ protein, small blood, and WBCs 150. Stool for occult blood was positive. Hemoglobin was 15.9 g/dL. INR 1.4. ASSESSMENT: 1. Acute kidney injury, secondary to hypotension, hypovolemia and also the hypercalcemia is contributing to the acute kidney injury. Continue with aggressive IV hydration. Avoid nephrotoxic agents. We will check a urinalysis and ultrasound of the kidneys. Insert Blandon catheter. 2. Hypotension, rule out sepsis, possibly from a urinary tract infection. Patient is maintained on antibiotics. Follow up on urine cultures. 3. Diarrhea, rule out Clostridium difficile colitis. 4. Hypercalcemia, possibly related to hypovolemia and acute kidney injury. Will check vitamin D and PTH levels as well if the hypercalcemia is persistent. 5. Possible gastrointestinal bleed with stool positive for occult blood. PLAN: Continue aggressive IV hydration. Repeat labs in a.m. Avoid nephrotoxic agents. Insert Blandon catheter. Check ultrasound of the kidneys. Thank you for this consultation. Will continue to follow the patient with you during her hospitalization. MMODL / IJN: [id number] /
--- NOTE | 2018-03-07 16:05 | US ---
EXAMINATION TYPE: US renals and bladder DATE OF EXAM: 03/07/2018 COMPARISON: Ultrasound abdomen 08/05/2017 CLINICAL HISTORY: RF. No pain. Exam was performed portable EXAM MEASUREMENTS: Right Kidney: 9.1 x 4.6 x 4.7 cm Left Kidney: 11.4 x 4.0 x 5.0 cm Limited visualization due to patient body habitus Right Kidney: Lateral lower pole anechoic focus measures = 8.0 x 8.8 x 7.9 cm. There is increased thr ough transmission, imperceptible wall. Lower pole echogenic spherical lesion, nonvascular in renal co rtex= 1.1 x 1.2 x 1.0 cm, findings may represent small angiomyolipoma Left Kidney: Lateral lower pole anechoic focus = 11.9 x 11.3 x 7.1 cm. There is imperceptible wall, i ncreased through transmission, findings are compatible with bilateral simple cysts Bladder: rodriguez seen Bilateral Jets not seen due to rodriguez Cortical medullary differentiation is maintained. No evident ascites. Fat lesion at the upper pole the right kidney seen on prior CT and ultrasound not well characterized on today's exam. IMPRESSION: Simple cysts bilateral kidneys. No evident hydronephrosis. 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
[2018-03-07 18:44] LABS: Glucose,Whole Blood 164 mg/dL (75-99)
--- NOTE | 2018-03-07 18:57 | HP ---
HISTORY AND PHYSICAL DATE OF ADMISSION: 03/07/2018 DATE OF SERVICE: 03/07/2018 PRESENTING COMPLAINT: Weak, tired, rundown. HISTORY OF PRESENTING COMPLAINT: This is a pleasant 72-year-old patient who follows with Dr. Richard. Chronic stable medical conditions include COPD, diabetes, hyperlipidemia, hypertension, rheumatoid arthritis, morbid obesity, hypothyroid, on home oxygen at 2 L, peripheral neuropathy, chronic low back pain, restless legs syndrome. She normally uses a wheelchair to get about. Patient for about a week has continued to become more and more weak, tired. She did not feel like eating much. She presented to the ER, was found to be hypotensive. Pressure had dropped down to the 50s and 60s systolic. The patient was given fluid boluses, put on Levophed. Patient's urine came back very infected- appearing. Also patient's BUN and creatinine were 49 and 3.81, up from 0.81 from very recently. That is being in hypovolemic shock. Patient empirically, though, was started on IV antibiotics, and critical care general road supervisor was consulted. REVIEW OF SYSTEMS: CONSTITUTIONAL: Weak and tired. Decreased appetite. HEENT: None. RESPIRATORY: Baseline short of breath. CARDIOVASCULAR: No chest pain. GASTROINTESTINAL: None. GENITOURINARY: None. MUSCULOSKELETAL: Aches and pains in joints. DERMATOLOGICAL: None. HEMATOLOGICAL: None. LYMPHATICS: None. PSYCHIATRY: None. NEUROLOGICAL: Numbness and tingling in the feet. PAST MEDICAL HISTORY: 1. COPD. 2. Diabetes. 3. DVT. 4. Hyperlipidemia. 5. Hypertension. 6. Pulmonary embolism. 7. Rheumatoid arthritis. 8. Hypothyroid. 9. Morbid obesity. 10.History of DVT and PE. 11.Fracture of right lower extremity. 12.Hodgkin lymphoma, treated with splenectomy and radiation treatment. 13.Home oxygen 2 L overnight. 14.Peripheral neuropathy. 15.Bilateral lower extremity edema. 16.Multiple UTIs. 17.Gout. 18.Chronic low back pain. 19.Restless legs syndrome. 20.Normally uses a wheelchair. PAST SURGICAL HISTORY: 1. Appendectomy. 2. . 3. Cholecystectomy. 4. Right bimalleolar repair. 5. Right lower leg I&D. 6. Total right knee. 7. Bilateral carpal tunnel release. 8. Right rotator cuff. PSYCH HISTORY: Depression. SOCIAL HISTORY: Patient is , lives with her . She used to work in retail sales. Stopped smoking several years ago. Did have [facility]. Patient smoked for about 30 years, stopped in . Smoked about a pack a day. FAMILY HISTORY: Parents of old age. HOME MEDICATIONS: 1. Januvia 100 mg a day. 2. Requip 3 mg at bedtime. 3. Klonopin 0.25 p.o. q.12 p.r.n. 4. Shayy Colace 2 tablets p.o. daily. 5. Xarelto 20 mg p.o. daily. 6. Lyrica 200 mg p.o. b.i.d. 7. MiraLAX 17 grams p.o. daily p.r.n. 8. Zofran 4 mg q.4 p.r.n. 9. Prilosec 20 mg p.o. daily. 10.Myrbetriq 50 mg p.o. daily. 11.Lotrimin AF topically b.i.d. 12.Lopressor 12.5 p.o. b.i.d. 13.Claritin 10 mg p.o. daily p.r.n. 14.Synthroid 100 mcg a day. 15.Probiotic 1 capsule p.o. daily. 16.Insulin KwikPen 6 units before meals t.i.d. 17.Levemir 20 units subcutaneously at bedtime. 18.[place] 10 one tablet q.4 p.r.n. 19.Glucerna Shake 1 can p.o. at bedtime. 20.Lasix 40 mg p.o. daily. 21.Iron 325 p.o. with supper. 22.Voltaren Gel 2 grams topically t.i.d. 23.Cymbalta 30 mg p.o. b.i.d. 24.Flexeril 5 mg p.o. t.i.d. p.r.n. 25.Cranberry fruit concentrate 500 mg p.o. t.i.d. p.r.n. 26.Santyl topically daily. 27.Vitamin D3 4000 units p.o. daily. 28.Symbicort 80/4.5 two puffs b.i.d. p.r.n. 29.Lipitor 40 mg p.o. daily. 30.Aspirin 81 mg p.o. daily. 31.Pro Stat supplement 30 mL p.o. daily. 32.Allopurinol 100 mg p.o. daily. 33.Ventolin HFA 2 puffs q.4 p.r.n. 34.Tylenol 650 mg q.6 p.r.n. ALLERGIES: IV CONTRAST DYE. PHYSICAL EXAMINATION: VITAL SIGNS IN THE ER: Temperature 98.7, pulse 105, blood pressure down to 64/41, pulse ox 89% on 3 L. BMI of 48.8. GENERAL APPEARANCE: Lying in bed, very tired-appearing. EYES: Pupils equal. Conjunctivae pale. HEENT: External appearance of nose and ears normal. Oral cavity dry mucous membrane, parched. NECK: JVD not raised. Mass not palpable. RESPIRATORY: Effort increased. LUNGS: Decreased breath sounds. CARDIOVASCULAR: First and second sounds normal. Minimal edema. ABDOMEN: Distended, soft. Liver and spleen not palpable. LYMPHATIC: No lymph node palpable in neck or axillae. PSYCHIATRY: Patient is able to answer simple questions. Mood and affect normal. NEUROLOGICAL: Pupils equal. Cranial nerves grossly intact. Decreased sensation distally. MUSCULOSKELETAL: Evidence of osteoarthritis in multiple joints. INVESTIGATIONS: White count 18.6, hemoglobin 15.9, platelets 272. Potassium 5.0, BUN 49, creatinine 3.81, calcium 10.6. UA positive for leukocyte esterase, WBC, squamous epithelia. Patient's BUN and creatinine were normal on 02/22/2018. ASSESSMENT: 1. Hypotensive shock from severe volume loss from acute renal failure. 2. Acute renal failure; appears to be primarily prerenal from volume depletion. 3. Acute metabolic encephalopathy from acute renal failure. 4. Acute urinary tract infection; suspect cystitis, as the patient has had prior multiple urinary tract infections. 5. Chronic obstructive pulmonary disease in an ex-smoker. 6. Diabetes mellitus, type 2. 7. Hyperlipidemia. 8. Essential hypertension. 9. Chronic rheumatoid arthritis. 10.Hypothyroid. 11.Morbid obesity with body mass index of 48.8. 12.Chronic hypoxic respiratory failure, on oxygen 2 L overnight, due to chronic obstructive pulmonary disease. 13.Peripheral neuropathy secondary to diabetes. 14.Multiple joints, degenerative joint disease, osteoarthritis. 15.Restless legs syndrome. 16.Chronic medical debility. Patient is pretty much wheelchair-bound. PLAN: Patient is started on IV antibiotics. Will leave the patient on IV Zosyn. Getting IV fluids. Renal-offensive medications will be held. Patient was also put on Levophed. Will be admitted to the ICU for closer monitoring. Prognosis guarded. PHYLLIS / ALICE: [id number] /
[2018-03-07] MEDS: NOREPINEPHRINE 4 MG in SODIUM CHLORIDE 0.9% 250 ML IV SCH (19:00)
[2018-03-07] MEDS: PREGABALIN 100 MG CAP PO SCH (21:03)
[2018-03-07] MEDS: ASPIRIN 81 MG PO SCH (21:04)
[2018-03-07] MEDS: DULoxetine HCL 30 MG CAPSULE.DR PO SCH (21:04)
[2018-03-07] MEDS: ATORVASTATIN 40 MG TAB PO SCH (21:04)
[2018-03-07] MEDS: NYSTATIN 100,000 UNIT/GM POWD 15 GM TOPICAL SCH (21:06)
[2018-03-08] MEDS: HEPARIN SODIUM,PORCINE 5,000 UNIT/ML 1 ML VIAL SQ SCH ×3 (00:32→17:44)
[2018-03-08] MEDS: SODIUM CHLORIDE 0.9% 1,000 ML IV SCH ×5 (00:33→23:14)
[2018-03-08] MEDS ORDERED: ONDANSETRON 4 MG/2 ML VIAL IVP PRN (00:48)
[2018-03-08] MEDS: NOREPINEPHRINE 4 MG in SODIUM CHLORIDE 0.9% 250 ML IV SCH ×2 (03:56→22:50)
[2018-03-08 05:11] LABS: Anisocytosis Slight; Basophils % (A) 0 %; Eosinophils # (A) 0.2 k/uL (0-0.7); Eosinophils % (A) 1 %; HCT 47.3 % (34.0-46.0); HGB 14.6 gm/dL (11.4-16.0); Hypochromasia Marked; Lymphocytes # (A) 1.6 k/uL (1.0-4.8); Lymphocytes % (A) 12 %; MCH 31.3 pg (25.0-35.0); MCHC 30.9 g/dL (31.0-37.0); MCV 101.3 fL (80.0-100.0); Macrocytosis Slight; Monocytes # (A) 0.6 k/uL (0-1.0); Monocytes % (A) 5 %; Neutrophils # (A) 10.3 k/uL (1.3-7.7); Neutrophils % (A) 80 %; Platelet Count 230 k/uL (150-450); RBC 4.67 m/uL (3.80-5.40); RDW 17.2 % (11.5-15.5); WBC 12.8 k/uL (3.8-10.6)
[2018-03-08 05:55] LABS: Calcium 9.3 mg/dL (8.4-10.2); Magnesium 2.1 mg/dL (1.6-2.3); Potassium 4.1 mmol/L (3.5-5.1)
[2018-03-08] MEDS: LEVOTHYROXINE 100 MCG TAB PO SCH (06:45)
[2018-03-08] MEDS: PANTOPRAZOLE 40 MG TABLET PO SCH (06:45)
[2018-03-08 07:23] LABS: Glucose,Whole Blood 184 mg/dL (75-99)
[2018-03-08] MEDS: INSULIN ASPART 100 UNIT/ML 1 ML 10 ML VIAL SQ SCH ×4 (07:39→20:40)
[2018-03-08] MEDS: DULoxetine HCL 30 MG CAPSULE.DR PO SCH ×2 (07:43→17:46)
[2018-03-08] MEDS ORDERED: ERTAPENEM 1 GM in SODIUM CHLORIDE 0.9% 50 ML IVPB SCH (10:00)
[2018-03-08] MEDS: FAMOTIDINE 20 MG TAB PO SCH (11:28)
[2018-03-08] MEDS: NYSTATIN 100,000 UNIT/GM POWD 15 GM TOPICAL SCH ×2 (11:29→20:42)
[2018-03-08] MEDS: COLLAGENASE 250 UNIT/GM OINTMENT 30 GM TUBE TOPICAL SCH (11:29)
[2018-03-08] MEDS: PREGABALIN 100 MG CAP PO SCH ×2 (11:32→20:29)
--- NOTE | 2018-03-08 11:34 | P.PN ---
Subjective Patient is seen in follow-up for acute kidney injury. Renal function is improving with creatinine down to 1.32 today. She is currently on 4 mics of Levophed. Calcium level is now normal. She is maintained on normal saline at 150 mL an hour. Diarrhea has improved. C. diff is pending. She is awake and alert. Denies chest pain or shortness of breath. Vital signs are stable. Currently on vasopressors. General: The patient appeared well nourished and normally developed. HEENT: Head exam is unremarkable. Neck is without jugular venous distension. LUNGS: Lungs are clear to auscultation and percussion. Breath sounds decreased. HEART: Rate and Rhythm are regular. First and second heart sounds normal. No murmurs, rubs or gallops. ABDOMEN: Abdominal exam reveals normal bowel sounds. Non-tender and non- distended. No evidence of peritonitis. EXTREMITITES: No clubbing, cyanosis, or edema. Objective - Vital Signs Vital signs: Vital Signs Temp 98.2 F 03/08/18 04:00 Pulse 128 H 03/08/18 11:15 Resp 27 H 03/08/18 11:15 BP 108/73 03/08/18 11:15 Pulse Ox 94 L 03/08/18 11:15 Intake & Output 03/07/18 03/08/18 03/08/18 18:59 06:59 18:59 Intake Total 362.531 2060.875 783.125 Output Total 975 1625 200 Balance -559.829 456.875 583.125 Weight 113.398 kg 109.8 kg 109.8 kg Intake: IV 300 1800 700 Sodium Chloride 0.9% 1, 300 1800 700 000 ml @ 150 mls/hr IV . Q6H40M [facility] Rx#:[id number] Intake, IV Titration 115.171 281.875 83.125 Amount Norepinephrine 4 mg In 231.875 83.125 Sodium Chloride 0.9% 250 ml @ Titrate IV .Q0M [facility] Rx#:[id number] Norepinephrine 4 mg In 65.171 Sodium Chloride 0.9% 250 ml @ Titrate IV .Q0M [facility] Rx#:[id number] Piperacillin-Tazobactam 3 50 50 .375 gm In Dextrose/Water 1 50ml.bag @ 12.5 mls/hr IVPB Q12HR [facility] Rx#: [id number] Output: Urine 975 1625 200 Uretheral ([place]) 275 Other: Voiding Method Indwelling Catheter Indwelling Catheter - Labs CBC & Chem 7: 03/08/18 04:54 03/08/18 04:54 Labs: Abnormal Lab Results - Last 24 Hours (Table) 03/07/18 03/08/18 03/08/18 Range/Units 18:28 04:54 04:54 WBC 12.8 H (3.8-10.6) k/uL Hct 47.3 H (34.0-46.0) % MCV 101.3 H (80.0-100.0) fL MCHC 30.9 L (31.0-37.0) g/dL RDW 17.2 H (11.5-15.5) % Neutrophils # 10.3 H (1.3-7.7) k/uL Chloride 115 H (98-107) mmol/L Carbon Dioxide 17 L (22-30) mmol/L BUN 28 H (7-17) mg/dL Creatinine 1.32 H (0.52-1.04) mg/dL Glucose 196 H (74-99) mg/dL POC Glucose (mg/dL) 164 H (75-99) mg/dL 03/08/18 Range/Units 07:21 WBC (3.8-10.6) k/uL Hct (34.0-46.0) % MCV (80.0-100.0) fL MCHC (31.0-37.0) g/dL RDW (11.5-15.5) % Neutrophils # (1.3-7.7) k/uL Chloride (98-107) mmol/L Carbon Dioxide (22-30) mmol/L BUN (7-17) mg/dL Creatinine (0.52-1.04) mg/dL Glucose (74-99) mg/dL POC Glucose (mg/dL) 184 H (75-99) mg/dL Microbiology - Last 24 Hours (Table) 03/07/18 06:54 Blood Culture - Preliminary Blood No Growth after 24 hours 03/07/18 07:10 Stool Culture - Preliminary Stool 03/07/18 05:25 Urine Culture - Preliminary Urine,Voided Assessment and Plan Plan: Assessment: 1. Nonoliguric acute kidney injury mostly prerenal secondary to septic shock. Renal function improving with creatinine down to 1.32 today. No evidence of hydronephrosis noted on renal ultrasound. 2. Septic shock currently on 4 mics of Levophed. Concern for UTI. Patient has history of chronic UTIs. C. diff pending. 3. Hypercalcemia secondary to volume contraction improved with IV hydration. 4. Metabolic acidosis secondary to acute kidney injury and IV fluids. 5. Diarrhea. Improved. C. diff pending. Plan: Continue normal saline at 150 mL an hour. Follow-up cultures. Add oral sodium bicarbonate. Wean vasopressors. Avoid nephrotoxins. Continue to monitor renal function and urine output. Check cortisol level as well.
[2018-03-08 11:58] LABS: Glucose,Whole Blood 155 mg/dL (75-99)
--- NOTE | 2018-03-08 13:51 | P.PN ---
Subjective Progress Note Date: 03/08/18 72-year-old morbidly obese female patient presented emergency department today with generalized weakness. The patient is bedridden and she has difficulty with mobility. The patient has multiple medical problems that she is morbidly obesity BMI 48.8. She has had multiple episodes of urine checked infections in the past including infections with Morganella morganii and E. coli and enterococcus. In the emergency department, the patient was found to be quite dehydrated, she was an acute kidney injury with a creatinine of 2.8 and a BUN of 48. She has some leukocytosis with a white cell count of 18.6. UA was consistent with underlying urine checked infection. She was afebrile yet subsequently she had hypotension. She was given a total of 2 L of IV fluid and following that she was started on pressors and currently she is on 4 g of norepinephrine infusion. Antibiotic coverage including a combination of Zosyn and Levaquin for now. The choice of Zosyn was mainly to cover gram-negative bacteria that were resistant to Rocephin in the past. Lactic acid level was around 1.9. She was able to communicate and she denies having any nausea or vomiting or abdominal pain. No emesis. No angina. No other complaints otherwise for now. On 03/08/2018, the patient is in the intensive care unit being treated for a complicated urinary tract infection and sepsis and hypotension. She has received adequate fluid resuscitation. The patient is currently on 5 g of norepinephrine infusion for blood pressure control. The patient is producing adequate amount of urine output and acute kidney injury is improving and the creatinine is down. His urine cultures are still pending. Blood cultures still pending. The patient was given Zosyn and Levaquin as empiric antibiotic coverage. She remains tachycardic in sinus mechanism with a heart rate ranging between 120 and 130. Respiratory rate is low. The white cell count is at 12.8. She is afebrile. She is awake and alert and she is following commands and answering questions appropriately. Thought is also on the case regarding acute kidney injury. The ultrasound the kidneys shows no evidence of any hydronephrosis. No evidence of any obstructive uropathy. Objective - Vital Signs Vital signs: Vital Signs Temp 98.2 F 03/08/18 04:00 Pulse 128 H 03/08/18 11:15 Resp 27 H 10/04/18 12:00 BP 108/73 03/08/18 11:15 Pulse Ox 94 L 03/08/18 11:15 Intake & Output 03/07/18 03/08/18 03/08/18 18:59 06:59 18:59 Intake Total 058.715 1301.875 983.125 Output Total 975 1625 850 Balance -559.829 456.875 133.125 Weight 113.398 kg 109.8 kg 109.8 kg Intake: IV 300 1800 900 Sodium Chloride 0.9% 1, 300 1800 900 000 ml @ 150 mls/hr IV . Q6H40M [facility] Rx#:[id number] Intake, IV Titration 115.171 281.875 83.125 Amount Norepinephrine 4 mg In 231.875 83.125 Sodium Chloride 0.9% 250 ml @ Titrate IV .Q0M [facility] Rx#:[id number] Norepinephrine 4 mg In 65.171 Sodium Chloride 0.9% 250 ml @ Titrate IV .Q0M [facility] Rx#:[id number] Piperacillin-Tazobactam 3 50 50 .375 gm In Dextrose/Water 1 50ml.bag @ 12.5 mls/hr IVPB Q12HR [facility] Rx#: [id number] Output: Urine 975 1625 850 Uretheral ([place]) 275 Other: Voiding Method Indwelling Catheter Indwelling Catheter Indwelling Catheter - Exam No acute distress, oriented 3. HEENT examination is grossly unremarkable. Mucous membranes are moist. No oral lesions. Neck supple. Full range of motion. No adenopathy thyromegaly or neck vein distention. Cardiovascular examination reveals regular rhythm rate. S1-S2 normal. No S3 or S4. No discernible murmur noted. Lungs reveal clear breath sounds. Her sounds are equal bilaterally. No adventitious lung sounds including wheezes rhonchi or crackles. Abdomen soft bowel sounds are heard. No masses or tenderness.Abdominal exam revealed normal bowel sounds. The abdomen was soft, non-tender, and without masses, organomegaly, or appreciable enlargement of the abdominal aorta. Extremities are intact. No cyanosis clubbing. Small healed ulcer on the anterior surface of the right mid leg, there is trace edema lower extremities bilaterally. Pulses are diminished at the present. Skin is without rash or lesion. Neurologic examination is brief but nonfocal. The patient is awake and alert and the patient is following commands and answering questions appropriately. Psychiatric evaluation is negative for an acute anxiety panic or depression. - Labs CBC & Chem 7: 03/08/18 04:54 03/08/18 04:54 Labs: Abnormal Lab Results - Last 24 Hours (Table) 03/07/18 03/08/18 03/08/18 Range/Units 18:28 04:54 04:54 WBC 12.8 H (3.8-10.6) k/uL Hct 47.3 H (34.0-46.0) % MCV 101.3 H (80.0-100.0) fL MCHC 30.9 L (31.0-37.0) g/dL RDW 17.2 H (11.5-15.5) % Neutrophils # 10.3 H (1.3-7.7) k/uL Chloride 115 H (98-107) mmol/L Carbon Dioxide 17 L (22-30) mmol/L BUN 28 H (7-17) mg/dL Creatinine 1.32 H (0.52-1.04) mg/dL Glucose 196 H (74-99) mg/dL POC Glucose (mg/dL) 164 H (75-99) mg/dL 03/08/18 03/08/18 Range/Units 07:21 11:45 WBC (3.8-10.6) k/uL Hct (34.0-46.0) % MCV (80.0-100.0) fL MCHC (31.0-37.0) g/dL RDW (11.5-15.5) % Neutrophils # (1.3-7.7) k/uL Chloride (98-107) mmol/L Carbon Dioxide (22-30) mmol/L BUN (7-17) mg/dL Creatinine (0.52-1.04) mg/dL Glucose (74-99) mg/dL POC Glucose (mg/dL) 184 H 155 H (75-99) mg/dL Microbiology - Last 24 Hours (Table) 03/07/18 05:25 Urine Culture - Final Urine,Voided 03/07/18 06:54 Blood Culture - Preliminary Blood No Growth after 24 hours 03/07/18 07:10 Stool Culture - Preliminary Stool Assessment and Plan Plan: Assessment 1 acute urinary tract infection with sepsis. Patient has been infected with gram-negative bacteria in the past essentially secondary to E. coli and Morganella. She's been also infected with enterococcus. Recurrent urine checked infection suspected as being the source of sepsis. The patient is currently on a combination of Zosyn and Levaquin. 2 sepsis with secondary hypotension related to urine tract infection, and the patient is currently on pressors at 5 g of norepinephrine. Effusion. The patient has been adequately resuscitated IV fluids. The patient is also on broad-spectrum antibiotics. 3 leukocytosis secondary to above 4 acute kidney injury probably secondary to intravascular volume depletion / dehydration, improving and the creatinine is on the decline 5 morbid obesity with a BMI of 48.8 6 COPD 7 diabetes mellitus 8 history of recurrent DVT and pulmonary embolism 9 hypertension 10 hyperlipidemia 11 hypothyroidism 12 rheumatoid arthritis 15 chronic hypoxic respiratory failure and the patient has been using oxygen overnight at 2 L per minute nasal cannula 14 history of Hodgkin's lymphoma with a previous splenectomy, 1993 15 recurrent UTIs 16 peripheral neuropathy involving lower extremities 17 chronic lower extremity edema 18 degenerative arthritis 19 chronic back pain and pain in general 20 RLS 21 hypothyroidism 22 very poor performance status and the patient is not mandatory at this point Plan Continue IV fluids. Stop the Zosyn and Levaquin since this patient to IV Invanz taken account the previous microbiology and sensitivities on her gram- negative urine checked infections. We'll attempt to wean off pressors as tolerated. Monitor hemodynamics. Monitor heart rate. Monitor renal function. Awaiting the results of the blood and urine cultures. We'll continue to follow make further recommendations and the patient will be kept in ICU as long that she is still pressor dependent.
[2018-03-08] MEDS: SODIUM BICARBONATE TAB 650 MG TAB PO SCH ×2 (14:23→20:32)
[2018-03-08] MEDS ORDERED: ERTAPENEM 0.5 GM in SODIUM CHLORIDE 0.9% 50 ML IVPB SCH (15:25)
[2018-03-08 17:37] LABS: Glucose,Whole Blood 170 mg/dL (75-99)
[2018-03-08] MEDS: ATORVASTATIN 40 MG TAB PO SCH (17:46)
[2018-03-08] MEDS: ASPIRIN 81 MG PO SCH (17:46)
[2018-03-08 20:37] LABS: Glucose,Whole Blood 153 mg/dL (75-99)
[2018-03-08 21:41] LABS: Hemoglobin A1C 7.2 % (4.0-6.0)
--- NOTE | 2018-03-08 23:07 | PN ---
PROGRESS NOTE DATE OF SERVICE: 03/08/2018 PRESENTING COMPLAINT: Weak and tired. INTERVAL HISTORY: This patient was admitted to the ICU following hypotensive shock from UTI and some metabolic encephalopathy; had to be on Levophed. Doing better this morning. Did tolerate a light diet. Lying in bed. Still weak and tired. REVIEW OF SYSTEMS: Done for constitutional, cardiovascular, GI, pulmonary; relevant findings as above. CURRENT MEDICATIONS: Reviewed. They include IV ertapenem. PHYSICAL EXAMINATION: Temperature 98.2, pulse 120, respiration 20, blood pressure 133/57, pulse ox 94% on 2 L. GENERAL APPEARANCE: More awake. Communicating. EYES: Pupils equal. Conjunctivae pale. HEENT: External appearance of nose and ears normal. Oral cavity less dry. NECK: JVD not raised. Mass not palpable. RESPIRATORY: Effort increased. LUNGS: Decreased breath sounds. CARDIOVASCULAR: First and second sounds normal. Minimal edema. ABDOMEN: Distended, soft. Liver and spleen not palpable. PSYCHIATRY: Alert and oriented x3. Mood and affect normal. INVESTIGATIONS: White count 12.8, hemoglobin 14.6, BUN 28, creatinine 1.32, bicarb 17. Urine culture negative. ASSESSMENT: 1. Hypotensive shock from severe volume loss from acute renal failure, present on admission. 2. Acute renal failure; appears to be primarily prerenal from volume depletion and from poor oral intake. 3. Acute metabolic encephalopathy from acute renal failure, improving. 4. Acute urinary tract infection; suspect cystitis with cultures coming back negative. 5. Chronic obstructive pulmonary disease in an ex-smoker. 6. Diabetes mellitus, type 2. 7. Hyperlipidemia. 8. Essential hypertension. 9. Chronic rheumatoid arthritis. 10.Hypothyroid. 11.Morbid obesity with body mass index of 48.8. 12.Chronic hypoxic respiratory failure, on oxygen 2 L overnight due to chronic obstructive pulmonary disease. 13.Peripheral neuropathy secondary to diabetes. 14.Multiple-joint degenerative joint disease, osteoarthritis. 15.Restless legs syndrome. 16.Chronic medical debility. Patient is pretty much wheelchair-bound. PLAN: Continue patient on antibiotics, IV fluids. Renal function is improving. Patient's mental status is also improving. Patient is in the ICU. MMODL / IJN: [id number] /
[2018-03-09] MEDS: HEPARIN SODIUM,PORCINE 5,000 UNIT/ML 1 ML VIAL SQ SCH ×3 (01:00→16:23)
[2018-03-09 05:49] LABS: Anion Gap 4 mmol/L; Blood Urea Nitrogen 11 mg/dL (7-17); Calcium 9.1 mg/dL (8.4-10.2); Carbon Dioxide 23 mmol/L (22-30); Chloride 113 mmol/L (98-107); Glucose 146 mg/dL (74-99); Magnesium 1.9 mg/dL (1.6-2.3); Sodium 140 mmol/L (137-145)
[2018-03-09] MEDS: SODIUM CHLORIDE 0.9% 1,000 ML IV SCH ×5 (06:45→22:17)
[2018-03-09] MEDS: LEVOTHYROXINE 100 MCG TAB PO SCH (06:49)
[2018-03-09] MEDS: PANTOPRAZOLE 40 MG TABLET PO SCH (06:51)
[2018-03-09 07:29] LABS: Glucose,Whole Blood 128 mg/dL (75-99)
[2018-03-09 07:48] LABS: Anisocytosis Slight; Basophils # (A) 0.1 k/uL (0-0.2); Basophils % (A) 0 %; Eosinophils # (A) 0.4 k/uL (0-0.7); Eosinophils % (A) 4 %; HCT 45.6 % (34.0-46.0); HGB 13.2 gm/dL (11.4-16.0); Hypochromasia Marked; Lymphocytes # (A) 2.3 k/uL (1.0-4.8); Lymphocytes % (A) 18 %; MCH 30.8 pg (25.0-35.0); MCHC 28.9 g/dL (31.0-37.0); Macrocytosis Marked; Mean Platelet Volume 8.9; Monocytes # (A) 0.8 k/uL (0-1.0); Monocytes % (A) 7 %; Neutrophils # (A) 8.8 k/uL (1.3-7.7); Neutrophils % (A) 70 %; Platelet Count 217 k/uL (150-450); RBC 4.28 m/uL (3.80-5.40); RDW 17.6 % (11.5-15.5); WBC 12.6 k/uL (3.8-10.6)
[2018-03-09 07:52] LABS: MCV 106.7 fL (80.0-100.0)
[2018-03-09] MEDS ORDERED: LEVOFLOXACIN 500MG-D5W PMX 500 MG in DEXTROSE/WATER 1 100ML.BAG IVPB SCH (08:00)
[2018-03-09] MEDS: INSULIN ASPART 100 UNIT/ML 1 ML 10 ML VIAL SQ SCH ×4 (08:27→20:50)
[2018-03-09] MEDS: PREGABALIN 100 MG CAP PO SCH ×2 (08:28→20:56)
[2018-03-09] MEDS: SODIUM BICARBONATE TAB 650 MG TAB PO SCH ×2 (08:29→20:56)
[2018-03-09] MEDS: NYSTATIN 100,000 UNIT/GM POWD 15 GM TOPICAL SCH ×2 (08:29→20:57)
[2018-03-09] MEDS: FAMOTIDINE 20 MG TAB PO SCH (08:29)
[2018-03-09] MEDS: DULoxetine HCL 30 MG CAPSULE.DR PO SCH ×2 (08:36→18:28)
[2018-03-09 08:45] LABS: Poikilocytosis (M) Present
--- NOTE | 2018-03-09 09:07 | P.PN ---
Subjective Progress Note Date: 03/09/18 72-year-old morbidly obese female patient presented emergency department today with generalized weakness. The patient is bedridden and she has difficulty with mobility. The patient has multiple medical problems that she is morbidly obesity BMI 48.8. She has had multiple episodes of urine checked infections in the past including infections with Morganella morganii and E. coli and enterococcus. In the emergency department, the patient was found to be quite dehydrated, she was an acute kidney injury with a creatinine of 2.8 and a BUN of 48. She has some leukocytosis with a white cell count of 18.6. UA was consistent with underlying urine checked infection. She was afebrile yet subsequently she had hypotension. She was given a total of 2 L of IV fluid and following that she was started on pressors and currently she is on 4 g of norepinephrine infusion. Antibiotic coverage including a combination of Zosyn and Levaquin for now. The choice of Zosyn was mainly to cover gram-negative bacteria that were resistant to Rocephin in the past. Lactic acid level was around 1.9. She was able to communicate and she denies having any nausea or vomiting or abdominal pain. No emesis. No angina. No other complaints otherwise for now. On 03/08/2018, the patient is in the intensive care unit being treated for a complicated urinary tract infection and sepsis and hypotension. She has received adequate fluid resuscitation. The patient is currently on 5 g of norepinephrine infusion for blood pressure control. The patient is producing adequate amount of urine output and acute kidney injury is improving and the creatinine is down. His urine cultures are still pending. Blood cultures still pending. The patient was given Zosyn and Levaquin as empiric antibiotic coverage. She remains tachycardic in sinus mechanism with a heart rate ranging between 120 and 130. Respiratory rate is low. The white cell count is at 12.8. She is afebrile. She is awake and alert and she is following commands and answering questions appropriately. Thought is also on the case regarding acute kidney injury. The ultrasound the kidneys shows no evidence of any hydronephrosis. No evidence of any obstructive uropathy. On 03/09/2080 I'm seeing this patient for a follow-up. The patient is going better compared to yesterday. The patient is less tachycardic. She patient is afebrile. She is currently down to 20 mics of norepinephrine infusion. She is producing good urine output. She was briefly placed on a bicarb drip and currently she is on normal saline infusion at the rate of 150 mL an hour. Creatinine has normalized and is down to 0.6. The patient is currently on IV Invanz. She is awake and alert. No nausea. No vomiting. Some vague abdominal discomfort. The patient had a bowel movement and the patient is able to tolerate her breakfast without any major difficulties. No altered mentation. No chest pain. No headaches. No other complaints otherwise for now. Objective - Vital Signs Vital signs: Vital Signs Temp 98.3 F 03/09/18 08:00 Pulse 119 H 03/09/18 08:00 Resp 15 03/09/18 08:00 BP 123/67 03/09/18 08:00 Pulse Ox 94 L 03/09/18 08:02 Intake & Output 03/08/18 03/09/18 03/09/18 18:59 06:59 18:59 Intake Total 2041.500 1808.5 150 Output Total 1400 1430 125 Balance 641.500 378.5 25 Weight 109.8 kg 113.5 kg Intake: IV 1800 1800 150 Sodium Chloride 0.9% 1, 1800 1800 150 000 ml @ 150 mls/hr IV . Q6H40M [facility] Rx#:[id number] Intake, IV Titration 241.500 8.5 Amount Norepinephrine 4 mg In 241.500 8.5 Sodium Chloride 0.9% 250 ml @ Titrate IV .Q0M [facility] Rx#:[id number] Output: Urine 1400 1430 125 Other: Voiding Method Indwelling Catheter Indwelling Catheter Indwelling Catheter # Voids 60 - Exam No acute distress, oriented 3. HEENT examination is grossly unremarkable. Mucous membranes are moist. No oral lesions. Neck supple. Full range of motion. No adenopathy thyromegaly or neck vein distention. Cardiovascular examination reveals regular rhythm rate. S1-S2 normal. No S3 or S4. No discernible murmur noted. Lungs reveal clear breath sounds. Her sounds are equal bilaterally. No adventitious lung sounds including wheezes rhonchi or crackles. Abdomen soft bowel sounds are heard. No masses or tenderness.Abdominal exam revealed normal bowel sounds. The abdomen was soft, non-tender, and without masses, organomegaly, or appreciable enlargement of the abdominal aorta. Extremities are intact. No cyanosis clubbing. Small healed ulcer on the anterior surface of the right mid leg, there is trace edema lower extremities bilaterally. Pulses are diminished at the present. Skin is without rash or lesion. Neurologic examination is brief but nonfocal. The patient is awake and alert and the patient is following commands and answering questions appropriately. Psychiatric evaluation is negative for an acute anxiety panic or depression. - Labs CBC & Chem 7: 03/09/18 05:13 03/09/18 05:13 Labs: Abnormal Lab Results - Last 24 Hours (Table) 03/08/18 03/08/18 03/08/18 Range/Units 04:54 11:45 17:33 WBC (3.8-10.6) k/uL MCV (80.0-100.0) fL MCHC (31.0-37.0) g/dL RDW (11.5-15.5) % Neutrophils # (1.3-7.7) k/uL Chloride (98-107) mmol/L Glucose (74-99) mg/dL POC Glucose (mg/dL) 155 H 170 H (75-99) mg/dL Hemoglobin A1c 7.2 H (4.0-6.0) % Phosphorus (2.5-4.5) mg/dL 03/08/18 03/09/18 03/09/18 Range/Units 20:34 05:13 05:13 WBC 12.6 H (3.8-10.6) k/uL MCV 106.7 H D (80.0-100.0) fL MCHC 28.9 L (31.0-37.0) g/dL RDW 17.6 H (11.5-15.5) % Neutrophils # 8.8 H (1.3-7.7) k/uL Chloride 113 H (98-107) mmol/L Glucose 146 H (74-99) mg/dL POC Glucose (mg/dL) 153 H (75-99) mg/dL Hemoglobin A1c (4.0-6.0) % Phosphorus 2.0 L (2.5-4.5) mg/dL 03/09/18 Range/Units 07:26 WBC (3.8-10.6) k/uL MCV (80.0-100.0) fL MCHC (31.0-37.0) g/dL RDW (11.5-15.5) % Neutrophils # (1.3-7.7) k/uL Chloride (98-107) mmol/L Glucose (74-99) mg/dL POC Glucose (mg/dL) 128 H (75-99) mg/dL Hemoglobin A1c (4.0-6.0) % Phosphorus (2.5-4.5) mg/dL Microbiology - Last 24 Hours (Table) 03/07/18 05:25 Urine Culture - Final Urine,Voided 03/07/18 06:54 Blood Culture - Preliminary Blood No Growth after 24 hours Assessment and Plan Plan: Assessment 1 acute urinary tract infection with sepsis. Patient currently on IV Invanz and the patient is still pressor dependent. Urine culture has not been collected appropriately. 2 septic shock secondary to urinary tract infection. the patient is improving and currently she is down to 2 mics of norepinephrine infusion. 3 leukocytosis secondary to above, improving 4 acute kidney injury probably secondary to intravascular volume depletion / dehydrat and the renal function is normalized. bid obesity with a BMI of 48.8 6 COPD 7 diabetes mellitus 8 history of recurrent DVT and pulmonary embolism 9 hypertension 10 hyperlipidemia 11 hypothyroidism 12 rheumatoid arthritis 15 chronic hypoxic respiratory failure and the patient has been using oxygen overnight at 2 L per minute nasal cannula 14 history of Hodgkin's lymphoma with a previous splenectomy, 1993 15 recurrent UTIs 16 peripheral neuropathy involving lower extremities 17 chronic lower extremity edema 18 degenerative arthritis 19 chronic back pain and pain in general 20 RLS 21 hypothyroidism 22 very poor performance status and the patient is not mandatory at this point Plan Continue IV fluids. continue IV Invanz. Continue IV fluids. Stop the bicarb infusion. Wean off the pressors as tolerated. Give the patient ICU as long as she is pressor dependent. I'm hopeful that within the next few hours and should be able to wean off the norepinephrine infusion completely. We'll continue to follow.
[2018-03-09] MEDS ORDERED: ERTAPENEM 500 GM in SODIUM CHLORIDE 0.9% 50 ML IVPB SCH (10:00)
[2018-03-09] MEDS ORDERED: ERTAPENEM 0.5 GM in SODIUM CHLORIDE 0.9% 50 ML IVPB SCH (10:00)
--- NOTE | 2018-03-09 10:59 | PN ---
PROGRESS NOTE Patient is seen for followup for acute kidney injury. She was admitted to the hospital with hypotension, mental status changes, which have all improved. Patient was volume depleted. She is maintained on IV fluids at 150 mL an hour. She has been on Levophed as well at about 5 mcg which is now down to 1 mcg. Patient seems quite sensitive to her blood pressure and the nursing staff has reported confusion when systolic blood pressure goes in the 90s and high 80s. Patient has had good urine output at about 100- 150 mL an hour. PHYSICAL EXAMINATION: On examination today, blood pressure was 122/67, heart rate 119 per minute, she is afebrile. Examination of the heart, S1, S2. Examination of the lungs, bilateral breath sounds are heard. Abdomen is soft, nontender. Examination of the lower extremities shows no significant edema. SHOT PACKER exam is grossly intact. Patient moving all 4 extremities. She is alert and oriented x3. LABS: Reveal sodium 140, potassium 4.0, chloride 113, BUN 11, serum creatinine 0.65, magnesium 1.9, hemoglobin 13.2 g/dL. ASSESSMENT: 1. Acute kidney injury secondary to hypotension, hypoperfusion with creatinine currently down to 0.65 from 3.8 on initial admission. 2. Urinary tract infection with urine culture currently showing no growth. Patient is maintained on IV antibiotics. 3. Diarrhea with no evidence of Clostridium difficile colitis, currently improved. 4. Mild hypercalcemia associated with acute kidney injury, now resolved. PLAN: Continue IV fluids. Try to decrease rate to 75 mL an hour once the Levophed is off. Currently, patient is not hypervolemic. We can check a chest x-ray. MMODL / IJN: [id number] /
--- NOTE | 2018-03-09 11:20 | XR ---
EXAMINATION TYPE: XR chest 1V DATE OF EXAM: 03/09/2018 COMPARISON: Prior chest x-ray 03/07/[address] 09/14/2017 HISTORY: Congestive heart failure TECHNIQUE: Single frontal view of the chest is obtained. FINDINGS: Patient is rotated. There are overlying cardiac leads. No evident pneumothorax or pleural effusion. Interstitium appears prominently. Pulmonary vascularity and cathryn not significantly changed. There is marked arthropathy in the shoulders, difficult to exclude some medial subluxation of the ri ght shoulder. Some minimal patchy basilar density is noted. IMPRESSION: There may be some minimal basilar atelectasis, there is underlying emphysema, interstiti al lung disease, correlate to exclude early interstitial edema, follow-up PA and lateral chest x-ray may be of benefit.
[2018-03-09] MEDS: COLLAGENASE 250 UNIT/GM OINTMENT 30 GM TUBE TOPICAL SCH (11:31)
[2018-03-09 11:52] LABS: Glucose,Whole Blood 124 mg/dL (75-99)
[2018-03-09] MEDS: ATORVASTATIN 40 MG TAB PO SCH (16:23)
[2018-03-09] MEDS: ASPIRIN 81 MG PO SCH (16:23)
[2018-03-09 17:07] LABS: Glucose,Whole Blood 126 mg/dL (75-99)
[2018-03-09 21:03] LABS: Glucose,Whole Blood 107 mg/dL (75-99)
--- NOTE | 2018-03-09 21:23 | PN ---
PROGRESS NOTE DATE OF SERVICE: 03/09/18. PRESENTING COMPLAINT: Weak and tired. INTERVAL HISTORY: Patient admitted to the ICU following hypertensive shock from UTI and metabolic encephalopathy and acute renal failure. The patient is getting IV fluids on Levophed overnight. The patient did tolerate a diet. Lying in bed, still feeling weak and tired. No chest pain, some short of breath, some aches and pains. REVIEW OF SYSTEMS: Done for constitutional, cardiovascular, GI, pulmonary; relevant findings as above. CURRENT MEDICATIONS: Reviewed that include IV ertapenem. The patient was on Levophed earlier. PHYSICAL EXAMINATION: Temperature 98.2, pulse 116, respirations 29, blood pressure 115/68, pulse ox 94 percent. GENERAL APPEARANCE: Lying in bed, awake, tired-appearing. EYES: Pupils equal. Conjunctivae pale. HEENT: External appearance of nose and ears normal. Oral cavity dry mucous. NECK: JVD not raised. Mass not palpable. RESPIRATORY: Effort increased. Lungs, decreased breath sounds. CARDIOVASCULAR: 1st and 2nd sounds, minimal edema. ABDOMEN: Soft, nontender. Liver and spleen not palpable. PSYCHIATRY: Awake, answering questions appropriately. INVESTIGATIONS: White count 12.6, hemoglobin 13.2, potassium 4.0, BUN and creatinine are normal. ASSESSMENT: 1. Hypotensive shock from severe volume loss from acute renal failure, present on admission with the patient requiring Levophed for most of the morning. 2. Acute renal failure. The patient probably prerenal from volume depletion and poor oral intake, now resolved. 3. Acute metabolic encephalopathy from renal failure, much improved. 4. Acute urinary tract infection suspect cystitis with cultures, came back negative. 5. Chronic obstructive pulmonary disease in an ex-smoker. 6. Diabetes mellitus type 2. 7. Hyperlipidemia. 8. Essential hypertension history. 9. Chronic rheumatoid arthritis. 10.Hypothyroid. 11.Morbid obesity, BMI 48.8. 12.Chronic hypoxic respiratory failure on oxygen 2 L overnight due to chronic obstructive pulmonary disease. 13.Peripheral neuropathy secondary to diabetes. 14.Primary osteoarthritis multiple joints. 15.Restless legs syndrome. 16.Chronic medical debility. Patient at baseline is a wheelchair bound. PLAN: Patient had been on Levophed most of the morning. Later on, being weaned off. IV fluids are being backed off. The patient tolerating a diet. Antibiotics are to continue. The patient has no more fever. We will see how the patient does. MMODL / IJN: [id number] /
[2018-03-10] MEDS: HEPARIN SODIUM,PORCINE 5,000 UNIT/ML 1 ML VIAL SQ SCH ×3 (01:12→17:03)
[2018-03-10 06:30] LABS: Anisocytosis Slight; Basophils # (A) 0.1 k/uL (0-0.2); Basophils % (A) 0 %; Eosinophils # (A) 0.7 k/uL (0-0.7); Eosinophils % (A) 6 %; HCT 40.2 % (34.0-46.0); HGB 12.7 gm/dL (11.4-16.0); Hypochromasia Moderate; Lymphocytes # (A) 2.4 k/uL (1.0-4.8); Lymphocytes % (A) 20 %; MCH 31.6 pg (25.0-35.0); MCHC 31.5 g/dL (31.0-37.0); Macrocytosis Slight; Mean Platelet Volume 8.2; Monocytes # (A) 0.7 k/uL (0-1.0); Monocytes % (A) 6 %; Neutrophils # (A) 7.9 k/uL (1.3-7.7); Neutrophils % (A) 66 %; Platelet Count 220 k/uL (150-450); RBC 4.02 m/uL (3.80-5.40); RDW 17.5 % (11.5-15.5)
[2018-03-10 06:42] LABS: MCV 100.1 fL (80.0-100.0)
[2018-03-10 06:56] LABS: Anion Gap 5 mmol/L; Blood Urea Nitrogen 7 mg/dL (7-17); Calcium 9.2 mg/dL (8.4-10.2); Carbon Dioxide 25 mmol/L (22-30); Chloride 110 mmol/L (98-107); Glucose 107 mg/dL (74-99); Magnesium 1.8 mg/dL (1.6-2.3); Phosphorus 2.4 mg/dL (2.5-4.5); Potassium 4.1 mmol/L (3.5-5.1); Sodium 140 mmol/L (137-145)
[2018-03-10] MEDS: LEVOTHYROXINE 100 MCG TAB PO SCH (07:39)
[2018-03-10] MEDS: PANTOPRAZOLE 40 MG TABLET PO SCH (07:39)
[2018-03-10 07:50] LABS: Glucose,Whole Blood 87 mg/dL (75-99)
[2018-03-10 08:00] LABS: Polychromasia Present
[2018-03-10] MEDS: INSULIN ASPART 100 UNIT/ML 1 ML 10 ML VIAL SQ SCH ×4 (08:20→21:08)
[2018-03-10] MEDS: PIPERACILLIN-TAZOBACTAM 3.375 GM in DEXTROSE/WATER 1 50ML.BAG IVPB SCH (08:28)
[2018-03-10] MEDS: PREGABALIN 100 MG CAP PO SCH ×2 (08:31→21:27)
[2018-03-10] MEDS: NYSTATIN 100,000 UNIT/GM POWD 15 GM TOPICAL SCH ×2 (08:32→21:28)
[2018-03-10] MEDS: SODIUM BICARBONATE TAB 650 MG TAB PO SCH ×2 (08:32→21:27)
[2018-03-10] MEDS: COLLAGENASE 250 UNIT/GM OINTMENT 30 GM TUBE TOPICAL SCH (09:07)
[2018-03-10] MEDS: DULoxetine HCL 30 MG CAPSULE.DR PO SCH ×2 (09:11→17:02)
[2018-03-10] MEDS ORDERED: Phosphorus Replacement Protoco 1 EACH MISC MISCELLANE PRN (09:24)
[2018-03-10] MEDS ORDERED: Magnesium Replacement Protocol 1 EACH MISC MISCELLANE PRN (09:24)
[2018-03-10] MEDS: MAGNESIUM SULFATE-D5W PMX 1 GM in DEXTROSE/WATER 1 100ML.BAG IVPB SCH ×2 (09:35→11:03)
[2018-03-10] MEDS ORDERED: IOPAMIDOL-300 CONTRAST 30 ML VIAL (ORAL USE) PO PRN ×2 (09:47→13:45)
[2018-03-10] MEDS ORDERED: BARIUM SULFATE 450 ML ORAL.SUSP BOTTLE PO PRN (09:57)
[2018-03-10] MEDS ORDERED: METOPROLOL TARTRATE 12.5 MG TAB PO SCH (10:00)
[2018-03-10] MEDS ORDERED: SODIUM CHLORIDE 0.9% 500 ML IV SCH (10:00)
--- NOTE | 2018-03-10 10:03 | P.PN ---
Subjective Progress Note Date: 03/10/18 72-year-old morbidly obese female patient presented emergency department today with generalized weakness. The patient is bedridden and she has difficulty with mobility. The patient has multiple medical problems that she is morbidly obesity BMI 48.8. She has had multiple episodes of urine checked infections in the past including infections with Morganella morganii and E. coli and enterococcus. In the emergency department, the patient was found to be quite dehydrated, she was an acute kidney injury with a creatinine of 2.8 and a BUN of 48. She has some leukocytosis with a white cell count of 18.6. UA was consistent with underlying urine checked infection. She was afebrile yet subsequently she had hypotension. She was given a total of 2 L of IV fluid and following that she was started on pressors and currently she is on 4 g of norepinephrine infusion. Antibiotic coverage including a combination of Zosyn and Levaquin for now. The choice of Zosyn was mainly to cover gram-negative bacteria that were resistant to Rocephin in the past. Lactic acid level was around 1.9. She was able to communicate and she denies having any nausea or vomiting or abdominal pain. No emesis. No angina. No other complaints otherwise for now. On 03/08/2018, the patient is in the intensive care unit being treated for a complicated urinary tract infection and sepsis and hypotension. She has received adequate fluid resuscitation. The patient is currently on 5 g of norepinephrine infusion for blood pressure control. The patient is producing adequate amount of urine output and acute kidney injury is improving and the creatinine is down. His urine cultures are still pending. Blood cultures still pending. The patient was given Zosyn and Levaquin as empiric antibiotic coverage. She remains tachycardic in sinus mechanism with a heart rate ranging between 120 and 130. Respiratory rate is low. The white cell count is at 12.8. She is afebrile. She is awake and alert and she is following commands and answering questions appropriately. Thought is also on the case regarding acute kidney injury. The ultrasound the kidneys shows no evidence of any hydronephrosis. No evidence of any obstructive uropathy. On 03/09/2080 I'm seeing this patient for a follow-up. The patient is going better compared to yesterday. The patient is less tachycardic. She patient is afebrile. She is currently down to 20 mics of norepinephrine infusion. She is producing good urine output. She was briefly placed on a bicarb drip and currently she is on normal saline infusion at the rate of 150 mL an hour. Creatinine has normalized and is down to 0.6. The patient is currently on IV Invanz. She is awake and alert. No nausea. No vomiting. Some vague abdominal discomfort. The patient had a bowel movement and the patient is able to tolerate her breakfast without any major difficulties. No altered mentation. No chest pain. No headaches. No other complaints otherwise for now. On 03/10/2018, I'm seeing this patient for a follow-up. She is in the intensive care unit for septic shock. The patient got fluid resuscitated. The patient also was treated with IV antibiotics and the patient was given IV Invanz. The patient improved. The urine culture was not collected appropriately and based on that we do not have any final microbial analysis. We are giving IV Invanz based on previous microbiology. Blood culture was negative. She is off pressors since yesterday and the patient is hemodynamically stable. She is still tachycardic and her beta blockers will be restarted. She is awake and conscious and alert. Chest x-ray from yesterday showed no major abnormalities. She is having some vague abdominal pain at the site of a anterior abdominal wall hernia. I'm wondering whether there is any incarcerated bowel. No nausea. No emesis. No diarrhea. No constipation. The patient a bowel movement yesterday. Objective - Vital Signs Vital signs: Vital Signs Temp 98.1 F 03/10/18 08:00 Pulse 108 H 03/10/18 09:00 Resp 20 03/10/18 09:00 BP 126/54 03/10/18 09:00 Pulse Ox 88 L 03/10/18 09:00 Intake & Output 03/09/18 03/10/18 03/10/18 18:59 06:59 18:59 Intake Total 1418.25 900 325 Output Total 835 1376 355 Balance 583.25 -476 -30 Weight 116.1 kg Intake: IV 1125 900 225 Sodium Chloride 0.9% 1, 1125 825 000 ml @ 150 mls/hr IV . Q6H40M [facility] Rx#:[id number] Sodium Chloride 0.9% 1, 75 225 000 ml @ 75 mls/hr IV . [id number] [facility] Rx#:[id number] Intake, IV Titration 173.25 Amount Norepinephrine 4 mg In 173.25 Sodium Chloride 0.9% 250 ml @ Titrate IV .Q0M [facility] Rx#:[id number] Oral 120 100 Output: Urine 835 1376 355 Other: Voiding Method Indwelling Catheter Indwelling Catheter Indwelling Catheter - Exam No acute distress, oriented 3. HEENT examination is grossly unremarkable. Mucous membranes are moist. No oral lesions. Neck supple. Full range of motion. No adenopathy thyromegaly or neck vein distention. Cardiovascular examination reveals regular rhythm rate. S1-S2 normal. No S3 or S4. No discernible murmur noted. Lungs reveal clear breath sounds. Her sounds are equal bilaterally. No adventitious lung sounds including wheezes rhonchi or crackles. Abdomen soft bowel sounds are heard. No masses or tenderness.Abdominal exam revealed normal bowel sounds. The abdomen was soft, non-tender, and without masses, organomegaly, or appreciable enlargement of the abdominal aorta. Extremities are intact. No cyanosis clubbing. Small healed ulcer on the anterior surface of the right mid leg, there is trace edema lower extremities bilaterally. Pulses are diminished at the present. The patient has a large anterior abdominal wall hernia and the patient has some tenderness upon palpating the hernia area. There is some underlying bowel which can be pushed and easily and the patient feels some direct tenderness. No rebound tenderness. No guarding. No ascites. Skin is without rash or lesion. Neurologic examination is brief but nonfocal. The patient is awake and alert and the patient is following commands and answering questions appropriately. Psychiatric evaluation is negative for an acute anxiety panic or depression. - Labs CBC & Chem 7: 03/10/18 05:38 03/10/18 05:38 Labs: Abnormal Lab Results - Last 24 Hours (Table) 03/09/18 03/09/18 03/09/18 Range/Units 11:50 17:04 20:50 WBC (3.8-10.6) k/uL MCV (80.0-100.0) fL RDW (11.5-15.5) % Neutrophils # (1.3-7.7) k/uL Chloride (98-107) mmol/L Glucose (74-99) mg/dL POC Glucose (mg/dL) 124 H 126 H 107 H (75-99) mg/dL Phosphorus (2.5-4.5) mg/dL 03/10/18 03/10/18 Range/Units 05:38 05:38 WBC 12.0 H (3.8-10.6) k/uL MCV 100.1 H D (80.0-100.0) fL RDW 17.5 H (11.5-15.5) % Neutrophils # 7.9 H (1.3-7.7) k/uL Chloride 110 H (98-107) mmol/L Glucose 107 H (74-99) mg/dL POC Glucose (mg/dL) (75-99) mg/dL Phosphorus 2.4 L (2.5-4.5) mg/dL Microbiology - Last 24 Hours (Table) 03/07/18 06:54 Blood Culture - Preliminary Blood No Growth after 72 hours 03/07/18 07:10 Stool Culture - Final Stool Assessment and Plan Plan: Assessment 1 acute urinary tract infection with sepsis. Patient currently on IV Invanz and the patient is off pressors for now 2 septic shock secondary to urinary tract infection. The patient has recovered and the patient is currently off pressors 3 leukocytosis secondary to above, improving 4 acute kidney injury probably secondary to above and the patient's renal function is normalized 6 COPD 7 diabetes mellitus 8 history of recurrent DVT and pulmonary embolism 9 hypertension 10 hyperlipidemia 11 hypothyroidism 12 rheumatoid arthritis 15 chronic hypoxic respiratory failure and the patient has been using oxygen overnight at 2 L per minute nasal cannula 14 history of Hodgkin's lymphoma with a previous splenectomy, 1993 15 recurrent UTIs 16 peripheral neuropathy involving lower extremities 17 chronic lower extremity edema 18 degenerative arthritis 19 chronic back pain and pain in general 20 RLS 21 hypothyroidism 22 very poor performance status and the patient is not mandatory at this point 23 abdominal wall hernia with some abdominal pain, rule out incarcerated bowel. Rule out bowel obstruction. Plan Continue IV fluids to KVO. continue IV Invanz. CAT scan of the abdomen with oral contrast only. Start metoprolol 15 mg by mouth twice a day. The CAT scan of the abdomen is negative the patient can be transferred to medical surgical floor with remote telemetry. We'll continue to follow.
[2018-03-10] MEDS ORDERED: SODIUM PHOSPHATE 10 MMOL in SODIUM CHLORIDE 0.9% 250 ML IVPB ONE (10:30)
[2018-03-10] MEDS: ERTAPENEM 1 GM in SODIUM CHLORIDE 0.9% 50 ML IVPB SCH (11:03)
[2018-03-10] MEDS: METOPROLOL TARTRATE 12.5 MG TAB PO SCH ×2 (11:03→21:27)
[2018-03-10 11:46] LABS: Glucose,Whole Blood 115 mg/dL (75-99)
--- NOTE | 2018-03-10 13:48 | PN ---
PROGRESS NOTE Patient is seen for followup for acute kidney injury. Her renal function has improved significantly with creatinine down to 0.59 mg/dL. On examination, blood pressure this morning was 117/68, heart rate 111 per minute. She is afebrile. EXAMINATION OF THE HEART: S1, S2. EXAMINATION OF LUNGS: Bilateral breath sounds are heard. ABDOMEN: Soft, non-tender. Examination of lower extremities shows no significant edema. MANAGER ACCESS exam is grossly intact. Labs show sodium 140, potassium 4.1, chloride 110, serum creatinine 0.59, hemoglobin 12.7 g/dL. ASSESSMENT: 1. Acute kidney injury, currently resolved, mainly associated with hypotension, hypoperfusion and sepsis with urinary tract infection. 2. Hypotension from sepsis, currently resolved. 3. Chronic obstructive pulmonary disease. 4. Type 2 diabetes. PLAN: Continue antibiotics. Continue to encourage increased oral intake. Decrease IV fluids if the patient has good oral intake. MMODL / IJN: [id number] /
--- NOTE | 2018-03-10 16:33 | CT ---
EXAMINATION TYPE: CT abdomen pelvis wo con DATE OF EXAM: 03/10/2018 COMPARISON: 08/05/2017 HISTORY: generalized pain CT DLP: 2202.1 mGycm Automated exposure control for dose reduction was used. TECHNIQUE: Helical acquisition of images was performed from the lung bases through the pelvis. FINDINGS: LUNG BASES: There is a low-density consolidation in the left lower present on the prior exam. There i s interlobular septal thickening within the lower lobes suggestive of fluid overload there is also en largement of the right and left main pulmonary arteries and partial visualization of coronary artery calcifications. LIVER/GB: Enhanced liver is of unremarkable morphology. Gallbladder surgically absent. Surgical clip is also seen in the hepatorenal fossa. PANCREAS: Atrophic but otherwise unremarkable in its unenhanced morphology. SPLEEN: Spleen is surgically absent. ADRENALS: No significant abnormality is seen. KIDNEYS: Large left and right renal lesions likely represent renal cysts. 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 No hydronephrosis or nephrolithiasis. FREE AIR: No free air is visualized ADENOPATHY: No greater than 1 cm short axis lymph nodes within the abdomen or pelvis. URINARY BLADDER: There is a focus of air within the urinary bladder could be from recent instrumenta tion given the Blandon catheter, however fistula with the adjacent thickened inflamed sigmoid colon is also a possibility. OSSEOUS STRUCTURES: There is a grade 1 anterolisthesis of 4 and L5. BOWEL: There is diffuse thickening of the sigmoid colon. Multiple colonic diverticula are seen in ad dition to sigmoid diverticulosis. Mild sigmoid inflammatory fat stranding is seen. No circumscribed f luid collection to suggest abscess. No pneumoperitoneum. OTHER: There is a large bowel filled ventral hernia with a wide neck. No proximal bowel dilatation to suggest obstruction. Portions of the stomach also protrudes into the supraumbilical portion of the h ernia. IMPRESSION: 1. ACUTE SIGMOID COLITIS VERSUS DIVERTICULITIS WITH COLITIS FAVORED THIS IS LONG SEGMENT. NO CURRE NT PERICOLONIC ABSCESS OR FREE AIR. 2. LEFT BASILAR CONSOLIDATION THAT IS LOW-ATTENUATION FAVORED TO REPRESENT PNEUMONIA. 3. FOCUS OF AIR WITHIN THE URINARY BLADDER THAT COULD BE DUE TO RECENT INSTRUMENTATION GIVEN THE FOLE Y CATHETER OR COULD BE DUE TO COLONIC VESICULAR FISTULA. 4. LARGE VENTRAL ABDOMINAL HERNIA CONTAINING STOMACH AND LOOPS OF BOWEL SEEN ON THE PRIOR EXAM.
[2018-03-10] MEDS: ASPIRIN 81 MG PO SCH (17:02)
[2018-03-10] MEDS: ATORVASTATIN 40 MG TAB PO SCH (17:02)
[2018-03-10] MEDS: SODIUM CHLORIDE 0.9% 1,000 ML IV SCH (19:16)
--- NOTE | 2018-03-10 20:59 | PN ---
PROGRESS NOTE DATE OF SERVICE: 03/10/2018. PRESENTING COMPLAINT: Tired. INTERVAL HISTORY: The patient admitted to the ICU following hypotensive shock from UTI and metabolic encephalopathy and acute renal failure. The patient has been off the Levophed since yesterday. Did tolerate a diet. Had a bowel movement yesterday. Today started having abdominal pain. The patient has known ventral abdominal hernia. No nausea, vomiting. No fever. REVIEW OF SYSTEMS: Done for constitutional, cardiovascular, GI, pulmonary; relevant findings as above. CURRENT MEDICATIONS: Reviewed that include IV Ertapenem. PHYSICAL EXAMINATION: VITAL SIGNS: Temperature 97.5, pulse 90, respiratory rate 19, blood pressure 106/56, pulse ox 88 percent on 3 L. GENERAL APPEARANCE: Lying in bed, awake. EYES: Pupils equal. Conjunctivae pale. HEENT external appearance of nose and ears normal. Oral cavity normal. NECK JVD not raised. Mass not palpable. RESPIRATORY: Effort increased. LUNGS decreased breath sounds. CARDIOVASCULAR: 1st and 2nd sounds normal. Minimal edema. ABDOMEN: Ventral hernia with mild tenderness. Liver and spleen not palpable. PSYCHIATRY: Alert and oriented x3. Mood and affect normal. INVESTIGATIONS: White count 12, hemoglobin 12.[address] scan of the abdomen and pelvis report either sigmoid colitis versus diverticulitis with colitis being favored and large ventral abdominal hernia containing stomach and loops of bowel. ASSESSMENT: 1. Hypertensive shock from severe volume loss from acute renal failure, present on admission. The patient did require Levophed. 2. Acute renal failure prerenal from volume depletion, now resolved. 3. Acute metabolic encephalopathy from renal failure, resolved. 4. Acute urinary tract infection; suspect cystitis with cultures came back negative, on IV antibiotics. 5. Acute colitis. The patient is already on antibiotics. 6. Chronic obstructive pulmonary disease in an ex-smoker. 7. Diabetes mellitus type 2. 8. Hyperlipidemia. 9. Essential hypertension history of. 10.Chronic rheumatoid arthritis. 11.Hypothyroid. 12.Morbid obesity BMI 48.8. 13.Chronic hypoxic respiratory failure on home oxygen 2 L. 14.Peripheral neuropathy secondary to diabetes. 15.Primary osteoarthritis multiple joints. 16.Restless legs syndrome. 17.Chronic medical debility, patient at baseline uses a wheelchair bound. 18.Ventral abdominal hernia with bowel in there, but with no obstruction on CT scan. PLAN: Will get a surgical opinion. The CT scan does not report any obstruction. The patient has pain in that hernia. The patient had a good bowel movement yesterday, but symptoms only started today. The patient is already on antibiotics in view of the colitis. Care was discussed with the patient. Follow. MMODL / IJN: [id number] /
[2018-03-10 21:00] LABS: Glucose,Whole Blood 124 mg/dL (75-99)
[2018-03-11] MEDS: HEPARIN SODIUM,PORCINE 5,000 UNIT/ML 1 ML VIAL SQ SCH ×3 (00:55→16:57)
[2018-03-11 05:27] LABS: Anion Gap 5 mmol/L; Blood Urea Nitrogen 6 mg/dL (7-17); Calcium 9.4 mg/dL (8.4-10.2); Carbon Dioxide 24 mmol/L (22-30); Chloride 109 mmol/L (98-107); Glucose 103 mg/dL (74-99); Magnesium 2.3 mg/dL (1.6-2.3); Phosphorus 2.9 mg/dL (2.5-4.5); Sodium 138 mmol/L (137-145)
[2018-03-11 06:11] LABS: Anisocytosis Slight; Basophils # (A) 0.1 k/uL (0-0.2); Basophils % (A) 0 %; Eosinophils # (A) 0.6 k/uL (0-0.7); Eosinophils % (A) 5 %; HCT 40.8 % (34.0-46.0); Hypochromasia Moderate; Lymphocytes # (A) 2.6 k/uL (1.0-4.8); Lymphocytes % (A) 20 %; MCH 31.7 pg (25.0-35.0); MCHC 31.9 g/dL (31.0-37.0); MCV 99.5 fL (80.0-100.0); Macrocytosis Slight; Mean Platelet Volume 9.3; Monocytes % (A) 7 %; Neutrophils # (A) 8.6 k/uL (1.3-7.7); Neutrophils % (A) 65 %; Platelet Count 210 k/uL (150-450); RDW 17.4 % (11.5-15.5); WBC 13.3 k/uL (3.8-10.6)
[2018-03-11 06:53] LABS: Glucose,Whole Blood 97 mg/dL (75-99)
[2018-03-11] MEDS: SODIUM BICARBONATE TAB 650 MG TAB PO SCH ×2 (09:11→22:14)
[2018-03-11] MEDS: METOPROLOL TARTRATE 12.5 MG TAB PO SCH ×2 (09:11→22:14)
[2018-03-11] MEDS: LEVOTHYROXINE 100 MCG TAB PO SCH (09:12)
[2018-03-11] MEDS: PREGABALIN 100 MG CAP PO SCH ×2 (09:12→22:14)
[2018-03-11] MEDS: PANTOPRAZOLE 40 MG TABLET PO SCH (09:24)
[2018-03-11] MEDS: INSULIN ASPART 100 UNIT/ML 1 ML 10 ML VIAL SQ SCH ×4 (09:25→22:05)
[2018-03-11 11:29] LABS: Glucose,Whole Blood 137 mg/dL (75-99)
[2018-03-11] MEDS: DULoxetine HCL 30 MG CAPSULE.DR PO SCH ×2 (12:22→16:57)
[2018-03-11] MEDS: NYSTATIN 100,000 UNIT/GM POWD 15 GM TOPICAL SCH ×2 (12:43→22:17)
[2018-03-11] MEDS: ERTAPENEM 1 GM in SODIUM CHLORIDE 0.9% 50 ML IVPB SCH (12:56)
[2018-03-11] MEDS: SODIUM CHLORIDE 0.9% 1,000 ML IV SCH (13:00)
--- NOTE | 2018-03-11 14:03 | P.GSCN ---
History of Present Illness Consult date: 03/11/18 History of present illness: CHIEF COMPLAINT: Abdominal pain HISTORY OF PRESENT ILLNESS: The patient is a 72-year-old female who was initially admitted for acute kidney injury. Yesterday she reported having acute onset epigastric abdominal pain. She has personal history of multiple abdominal wall hernias. No previous reports of bowel obstructions. At this time, she denies any new abdominal pain as her abdominal pain has markedly improved. She is tolerating regular diet. Family is at bedside. Separately, patient has end-stage osteoarthritis of the knee and requires a total knee replacement. Patient's ambulation is limited. Patient's family request rehab evaluation at [facility]. PAST MEDICAL HISTORY: See list. PAST SURGICAL HISTORY: See list. MEDICATIONS: See list. ALLERGIES: See list. SOCIAL HISTORY: No illicit drug use FAMILY HISTORY: No reports of Crohn's disease or inflammatory bowel disease REVIEW OF ORGAN SYSTEMS: CONSTITUTIONAL: No fevers or chills. Has morbid obesity, overweight by 125 pound HEENT: No troubles with vision or hearing. No reports of dysphagia. ENDOCRINE: Has thyroid disorders. Has diabetes. CARDIOVASCULAR: No heart attack. No chest pain. RESPIRATORY: History of COPD. GASTROINTESTINAL: No reports of recent blood in stools. NEURO: No reports of stroke or seizure disorders. PSYCH: No depression or suicidal ideation HEMATOLOGIC: No easy bruising or bleeding. Past history of DVTs. Past history of Hodgkin's lymphoma. LYMPHATIC: The patient denies any lumps and bumps around the neck. GENITOURINARY: Denies any blood in urine or increased urinary frequency. MUSCULOSKELETAL: Has back pain, stiffness and joint arthritis. Has rheumatoid arthritis. Uses assistive devices for ambulation SKIN: No skin cancer or rash. PHYSICAL EXAM: VITAL SIGNS: GENERAL: Well-developed in no acute distress. HEENT: No sclera icterus. Extraocular movements grossly intact. Moist buccal mucosa. Head is atraumatic, normocephalic. Hears conversational speech. No nasal drainage. NECK: Supple without lymphadenopathy. CHEST: Non-labored respirations and equal bilateral excursions. CARDIOVASCULAR: Regular rate with regular rhythm. Palpable 2+ radial pulses. ABDOMEN: Soft. Protuberant. No peritonitis. [place] abdominal wall hernia stented without incarceration or obstruction MUSCULOSKELETAL: No clubbing, cyanosis or edema. NEUROLOGIC: No focal or lateralizing signs. Cranial nerves II through XII grossly intact. PSYCH: Appropriate affect. Alert and oriented to person, place and time. SKIN: Well perfused. Good skin turgor. LABS: Reviewed ASSESSMENT: 1. MULTIPLE ABDOMINAL WALL HERNIAS PLAN: 1. No surgical intervention at this time 2. Abdominal pain has improved and may continue with diet as tolerated 3. Family state concern includes limited ambulation and severe osteoarthritis 4. Management of abdominal wall hernias as outpatient Thank you for this kind consultation. Past Medical History Past Medical History: Cancer, COPD, Diabetes Mellitus, Deep Vein Thrombosis (DVT ), Hyperlipidemia, Hypertension, Pneumonia, Pulmonary Embolus (PE), Rheumatoid Arthritis (RA), Skin Disorder, Thyroid Disorder Additional Past Medical History / Comment(s): Morbid obesity, COPD, diabetes mellitus, remote history of DVT and pulmonary embolism, hypertension, hyperlipidemia, hypothyroidism, rheumatoid arthritis, history of fracture of the right lower extremity requiring surgery, right lower extremity wound that has healed, previous history of Hodgkin's lymphoma treated with a splenectomy and subsequent radiation therapy in 1993, chronic hypoxic respiratory failure patient on oxygen at 2 L overnight, 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 Past Anesthesia/Blood Transfusion Reactions: No Reported Reaction Smoking Status: Former smoker - Past Family History Father Family Medical History: No Reported History Additional Family Medical History / Comment(s): Father was healthy and lived to be 88yrs old. Mother Family Medical History: No Reported History Additional Family Medical History / Comment(s): Pt states mother was healthy and lived to be 90yrs old. Son(s) Family Medical History: No Reported History Additional Family Medical History / Comment(s): She relates that her parents of old age her mother was about 90 father was 88, without sniffing and medical troubles. She does relate that her son committed suicide but her daughter is quite healthy. Medications and Allergies Home Medications Medication Instructions Recorded Confirmed Type sitaGLIPtin [Januvia] 100 mg PO DAILY@0800 10/09/13 03/07/18 History DULoxetine HCL [Cymbalta] 30 mg PO BID@0800,1700 11/27/15 03/07/18 History rOPINIRole HCL [Requip] 3 mg PO HS@2100 11/27/15 03/07/18 History Rivaroxaban [Xarelto] 20 mg PO DAILY@1700 05/12/16 03/07/18 History Allopurinol [Zyloprim] 100 mg PO DAILY@0800 09/20/16 03/07/18 History Levothyroxine Sodium [Synthroid] 100 mcg PO DAILY 09/20/16 03/07/18 History Omeprazole [PriLOSEC] 20 mg PO DAILY@0700 09/20/16 03/07/18 History Atorvastatin [Lipitor] 40 mg PO DAILY@1700 05/02/17 03/07/18 History Acetaminophen Tab [Tylenol] 650 mg PO Q6H PRN 08/03/17 03/07/18 History Amino Acids/Protein Hydrolys 30 ml PO DAILY@1700 08/03/17 03/07/18 History [Pro-Stat Supplement] Budesonide/Formoterol Fumarate 2 puff INHALATION RT-BID PRN 08/03/17 03/07/18 History [Symbicort 80-4.5 Mcg Inhaler] Cholecalciferol (Vitamin D3) 4,000 unit PO DAILY@1700 08/03/17 03/07/18 History [Vitamin D3] Cyclobenzaprine [Flexeril] 5 mg PO TID PRN 08/03/17 03/07/18 History Ferrous Sulfate [Feosol] 325 mg PO W/SUPPER 08/03/17 03/07/18 History Glucerna Shake 1 can PO HS 08/03/17 03/07/18 History L.acidoph,Paracasei, B.lactis 1 cap PO DAILY 08/03/17 03/07/18 History [Probiotic] Polyethylene Glycol 3350 [Miralax] 17 gm PO DAILY PRN 08/03/17 03/07/18 History Pregabalin [Lyrica] 200 mg PO BID@0800,2100 08/03/17 03/07/18 History Albuterol Inhaler [Ventolin Hfa 2 puff INHALATION RT-Q4H PRN 09/07/17 03/07/18 History Inhaler] Insulin Lispro [humaLOG Kwikpen] 6 unit SQ AC-TID 09/07/17 03/07/18 History Mirabegron [Myrbetriq] 50 mg PO DAILY 09/07/17 03/07/18 History Ondansetron [Zofran] 4 mg PO Q8HR PRN 09/07/17 03/07/18 History Sennosides/Docusate Sodium [Shayy 2 tab PO DAILY 09/07/17 03/07/18 History Colace] Aspirin EC [Ecotrin Low Dose] 81 mg PO DAILY@1700 09/13/17 03/07/18 History Miconazole Nitrate [Lotrimin AF 1 applic TOPICAL BID 09/13/17 03/07/18 History Powder] Furosemide [Lasix] 40 mg PO DAILY #30 tablet 09/16/17 03/07/18 Rx HYDROcodone/APAP 10-325MG [Paradise 1 tab PO Q4HR PRN #20 tab 09/18/17 03/07/18 Rx 10-325] Cranberry 425 Cap 425 mg PO W/SUPPER 11/24/17 03/07/18 History Cranberry Fruit Concentrate [Azo 500 mg PO TID PRN 11/24/17 03/07/18 History Cranberry] Diclofenac Sodium [Voltaren Gel] 2 gram TOPICAL TID 11/24/17 03/07/18 History Loratadine [Claritin] 10 mg PO DAILY PRN 11/24/17 03/07/18 History Metoprolol Tartrate [Lopressor] 12.5 mg PO BID@0800,1700 11/24/17 03/07/18 History clonazePAM [KlonoPIN] 0.25 mg PO Q12H PRN 11/24/17 03/07/18 History Collagenase [Santyl] 1 applic TOPICAL DAILY 02/20/18 03/07/18 History Insulin Detemir [Levemir] 20 unit SQ HS 02/20/18 03/07/18 History Allergies Allergy/AdvReac Type Severity Reaction Status Date / Time No Known Drug Allergies Allergy No known Verified 03/10/18 13:03 allergy Surgical - Exam Vital Signs Temp Pulse Resp BP Pulse Ox 98.7 F 105 H 20 166/102 95 03/07/18 02:57 03/07/18 02:57 03/07/18 02:57 03/07/18 02:57 03/07/18 02:57 Results - Labs 03/11/18 04:01 03/11/18 04:01 Abnormal Lab Results - Last 24 Hours (Table) 03/10/18 03/11/18 03/11/18 Range/Units 20:56 04:01 04:01 WBC 13.3 H (3.8-10.6) k/uL RDW 17.4 H (11.5-15.5) % Neutrophils # 8.6 H (1.3-7.7) k/uL Chloride 109 H (98-107) mmol/L BUN 6 L (7-17) mg/dL Glucose 103 H (74-99) mg/dL POC Glucose (mg/dL) 124 H (75-99) mg/dL 03/11/18 Range/Units 11:27 WBC (3.8-10.6) k/uL RDW (11.5-15.5) % Neutrophils # (1.3-7.7) k/uL Chloride (98-107) mmol/L BUN (7-17) mg/dL Glucose (74-99) mg/dL POC Glucose (mg/dL) 137 H (75-99) mg/dL Microbiology - Last 24 Hours (Table) 03/07/18 06:54 Blood Culture - Preliminary Blood No Growth after 96 hours Diabetes panel 03/11/18 Range/Units 04:01 Sodium 138 (137-145) mmol/L Potassium 4.0 (3.5-5.1) mmol/L Chloride 109 H (98-107) mmol/L Carbon Dioxide 24 (22-30) mmol/L BUN 6 L (7-17) mg/dL Creatinine 0.54 (0.52-1.04) mg/dL Glucose 103 H (74-99) mg/dL Calcium 9.4 (8.4-10.2) mg/dL Calcium panel 03/11/18 Range/Units 04:01 Calcium 9.4 (8.4-10.2) mg/dL Phosphorus 2.9 (2.5-4.5) mg/dL Pituitary panel 03/11/18 Range/Units 04:01 Sodium 138 (137-145) mmol/L Potassium 4.0 (3.5-5.1) mmol/L Chloride 109 H (98-107) mmol/L Carbon Dioxide 24 (22-30) mmol/L BUN 6 L (7-17) mg/dL Creatinine 0.54 (0.52-1.04) mg/dL Glucose 103 H (74-99) mg/dL Calcium 9.4 (8.4-10.2) mg/dL Adrenal panel 03/11/18 Range/Units 04:01 Sodium 138 (137-145) mmol/L Potassium 4.0 (3.5-5.1) mmol/L Chloride 109 H (98-107) mmol/L Carbon Dioxide 24 (22-30) mmol/L BUN 6 L (7-17) mg/dL Creatinine 0.54 (0.52-1.04) mg/dL Glucose 103 H (74-99) mg/dL Calcium 9.4 (8.4-10.2) mg/dL - Imaging CT scan - abdomen: report reviewed, image reviewed US - abdomen: report reviewed, image reviewed (Multiple abdominal wall hernias without incarceration.) Assessment and Plan (1) BMI 50.0-59.9, adult Current Visit: Yes Status: Acute Code(s): Z68.43 - BODY MASS INDEX (BMI) 50- 59.9, ADULT SNOMED Code(s): 228231603 (2) Acute kidney injury Current Visit: Yes Status: Acute Code(s): N17.9 - ACUTE KIDNEY FAILURE, UNSPECIFIED SNOMED Code(s): 995862079025404 (3) Acute exacerbation of chronic obstructive airways disease Current Visit: No Status: Acute Code(s): J44.1 - CHRONIC OBSTRUCTIVE PULMONARY DISEASE W (ACUTE) EXACERBATION SNOMED Code(s): 861300178 (4) At risk for readmission to hospital Current Visit: No Status: Acute Code(s): Z91.89 - OTH PERSONAL RISK FACTORS , NOT ELSEWHERE CLASSIFIED SNOMED Code(s): 9229387864878 (5) Diabetes mellitus Current Visit: No Status: Acute Code(s): E11.9 - TYPE 2 DIABETES MELLITUS WITHOUT COMPLICATIONS SNOMED Code(s): 05465931 (6) Morbid obesity Current Visit: No Status: Acute Code(s): E66.01 - MORBID (SEVERE) OBESITY DUE TO EXCESS CALORIES SNOMED Code(s): 825717993 (7) Rheumatoid arthritis Current Visit: No Status: Acute Code(s): M06.9 - RHEUMATOID ARTHRITIS, UNSPECIFIED SNOMED Code(s): 03313027 (8) Ventral hernia without obstruction or gangrene Current Visit: Yes Status: Acute Code(s): K43.9 - VENTRAL HERNIA WITHOUT OBSTRUCTION OR GANGRENE SNOMED Code(s): 897978019
--- NOTE | 2018-03-11 15:21 | P.PN ---
Subjective Progress Note Date: 03/11/18 72-year-old morbidly obese female patient presented emergency department today with generalized weakness. The patient is bedridden and she has difficulty with mobility. The patient has multiple medical problems that she is morbidly obesity BMI 48.8. She has had multiple episodes of urine checked infections in the past including infections with Morganella morganii and E. coli and enterococcus. In the emergency department, the patient was found to be quite dehydrated, she was an acute kidney injury with a creatinine of 2.8 and a BUN of 48. She has some leukocytosis with a white cell count of 18.6. UA was consistent with underlying urine checked infection. She was afebrile yet subsequently she had hypotension. She was given a total of 2 L of IV fluid and following that she was started on pressors and currently she is on 4 g of norepinephrine infusion. Antibiotic coverage including a combination of Zosyn and Levaquin for now. The choice of Zosyn was mainly to cover gram-negative bacteria that were resistant to Rocephin in the past. Lactic acid level was around 1.9. She was able to communicate and she denies having any nausea or vomiting or abdominal pain. No emesis. No angina. No other complaints otherwise for now. On 03/08/2018, the patient is in the intensive care unit being treated for a complicated urinary tract infection and sepsis and hypotension. She has received adequate fluid resuscitation. The patient is currently on 5 g of norepinephrine infusion for blood pressure control. The patient is producing adequate amount of urine output and acute kidney injury is improving and the creatinine is down. His urine cultures are still pending. Blood cultures still pending. The patient was given Zosyn and Levaquin as empiric antibiotic coverage. She remains tachycardic in sinus mechanism with a heart rate ranging between 120 and 130. Respiratory rate is low. The white cell count is at 12.8. She is afebrile. She is awake and alert and she is following commands and answering questions appropriately. Thought is also on the case regarding acute kidney injury. The ultrasound the kidneys shows no evidence of any hydronephrosis. No evidence of any obstructive uropathy. On 03/09/2080 I'm seeing this patient for a follow-up. The patient is going better compared to yesterday. The patient is less tachycardic. She patient is afebrile. She is currently down to 20 mics of norepinephrine infusion. She is producing good urine output. She was briefly placed on a bicarb drip and currently she is on normal saline infusion at the rate of 150 mL an hour. Creatinine has normalized and is down to 0.6. The patient is currently on IV Invanz. She is awake and alert. No nausea. No vomiting. Some vague abdominal discomfort. The patient had a bowel movement and the patient is able to tolerate her breakfast without any major difficulties. No altered mentation. No chest pain. No headaches. No other complaints otherwise for now. On 03/10/2018, I'm seeing this patient for a follow-up. She is in the intensive care unit for septic shock. The patient got fluid resuscitated. The patient also was treated with IV antibiotics and the patient was given IV Invanz. The patient improved. The urine culture was not collected appropriately and based on that we do not have any final microbial analysis. We are giving IV Invanz based on previous microbiology. Blood culture was negative. She is off pressors since yesterday and the patient is hemodynamically stable. She is still tachycardic and her beta blockers will be restarted. She is awake and conscious and alert. Chest x-ray from yesterday showed no major abnormalities. She is having some vague abdominal pain at the site of a anterior abdominal wall hernia. I'm wondering whether there is any incarcerated bowel. No nausea. No emesis. No diarrhea. No constipation. The patient a bowel movement yesterday. On 03/11/2018 the patient is being seen on the medical floor. She is doing well. She is resting comfortably in bed. No fever or chills. Tachycardia is also resolved and the patient's heart rate has normalized. She is on IV Invanz. Hemodynamically stable and the patient's blood pressure is within normal limits. No nausea. No vomiting. No altered mentation. She is having regular bowel movements. No constipation. No other complaints otherwise for now. The white cell count is at 7.0. Rest of the blood work and electrodes are all within normal limits. Objective - Vital Signs Vital signs: Vital Signs Temp 98.4 F 03/11/18 14:35 Pulse 99 03/11/18 14:35 Resp 15 03/11/18 14:35 BP 109/64 03/11/18 14:35 Pulse Ox 94 L 03/11/18 14:35 Intake & Output 03/10/18 03/11/18 03/11/18 18:59 06:59 18:59 Intake Total 2165 50 160 Output Total 2140 830 500 Balance 25 -780 -340 Weight 114.9 kg Intake: IV 315 50 Sodium Chloride 0.9% 1, 315 50 000 ml @ 10 mls/hr IV . Q24H [facility] Rx#:[id number] Intake, IV Titration 500 Amount Ertapenem 1 gm In Sodium 50 Chloride 0.9% 50 ml @ 100 mls/hr IVPB Q24H [facility] Rx# :[id number] Magnesium Sulfate-D5w Pmx 200 1 gm In Dextrose/Water 1 100ml.bag @ 100 mls/hr IVPB Q1H [facility] Rx#: [id number] Sodium Phosphate 10 mmol 250 In Sodium Chloride 0.9% 250 ml @ 125 mls/hr IVPB ONCE ONE Rx#:[id number] Oral 1350 160 Output: Urine 2140 830 500 Other: Voiding Method Indwelling Catheter Indwelling Catheter Indwelling Catheter - Exam No acute distress, oriented 3. HEENT examination is grossly unremarkable. Mucous membranes are moist. No oral lesions. Neck supple. Full range of motion. No adenopathy thyromegaly or neck vein distention. Cardiovascular examination reveals regular rhythm rate. S1-S2 normal. No S3 or S4. No discernible murmur noted. Lungs reveal clear breath sounds. Her sounds are equal bilaterally. No adventitious lung sounds including wheezes rhonchi or crackles. Abdomen soft bowel sounds are heard. No masses or tenderness.Abdominal exam revealed normal bowel sounds. The abdomen was soft, non-tender, and without masses, organomegaly, or appreciable enlargement of the abdominal aorta. Extremities are intact. No cyanosis clubbing. Small healed ulcer on the anterior surface of the right mid leg, there is trace edema lower extremities bilaterally. Pulses are diminished at the present. The patient has a large anterior abdominal wall hernia and the patient has some tenderness upon palpating the hernia area. There is some underlying bowel which can be pushed and easily and the patient feels some direct tenderness. No rebound tenderness. No guarding. No ascites. Skin is without rash or lesion. Neurologic examination is brief but nonfocal. The patient is awake and alert and the patient is following commands and answering questions appropriately. Psychiatric evaluation is negative for an acute anxiety panic or depression. - Labs CBC & Chem 7: 03/11/18 04:01 03/11/18 04:01 Labs: Abnormal Lab Results - Last 24 Hours (Table) 03/10/18 03/11/18 03/11/18 Range/Units 20:56 04:01 04:01 WBC 13.3 H (3.8-10.6) k/uL RDW 17.4 H (11.5-15.5) % Neutrophils # 8.6 H (1.3-7.7) k/uL Chloride 109 H (98-107) mmol/L BUN 6 L (7-17) mg/dL Glucose 103 H (74-99) mg/dL POC Glucose (mg/dL) 124 H (75-99) mg/dL 03/11/18 Range/Units 11:27 WBC (3.8-10.6) k/uL RDW (11.5-15.5) % Neutrophils # (1.3-7.7) k/uL Chloride (98-107) mmol/L BUN (7-17) mg/dL Glucose (74-99) mg/dL POC Glucose (mg/dL) 137 H (75-99) mg/dL Microbiology - Last 24 Hours (Table) 03/07/18 06:54 Blood Culture - Preliminary Blood No Growth after 96 hours Assessment and Plan Plan: Assessment 1 acute urinary tract infection with sepsis. Patient currently on IV Invanz and the patient is off pressors for now 2 septic shock secondary to urinary tract infection. The patient has recovered and the patient is currently off pressors 3 leukocytosis secondary to above, improving 4 acute kidney injury probably secondary to above and the patient's renal function is normalized 6 COPD 7 diabetes mellitus 8 history of recurrent DVT and pulmonary embolism 9 hypertension 10 hyperlipidemia 11 hypothyroidism 12 rheumatoid arthritis 15 chronic hypoxic respiratory failure and the patient has been using oxygen overnight at 2 L per minute nasal cannula 14 history of Hodgkin's lymphoma with a previous splenectomy, 1993 15 recurrent UTIs 16 peripheral neuropathy involving lower extremities 17 chronic lower extremity edema 18 degenerative arthritis 19 chronic back pain and pain in general 20 RLS 21 hypothyroidism 22 very poor performance status and the patient is not mandatory at this point 23 abdominal wall hernia with some abdominal pain, rule out incarcerated bowel. Rule out bowel obstruction. Plan The IV Fluids to KVO. Continue IV Invanz. Heart Rate Is Normalized. No Hemodynamic Instability. Discharge Planning Is in Progress and the Patient's Condition Is Stable for Now. We'll Sign off the Case and We'll Leave the Rest of the Management up to medicine.
[2018-03-11 16:57] LABS: Glucose,Whole Blood 197 mg/dL (75-99)
[2018-03-11] MEDS: ASPIRIN 81 MG PO SCH (16:57)
[2018-03-11] MEDS: ATORVASTATIN 40 MG TAB PO SCH (16:57)
--- NOTE | 2018-03-11 17:43 | PN ---
PROGRESS NOTE Patient is seen for followup for acute kidney injury. Renal function is significantly improved with creatinine down to 0.5, now from 3.8 on initial admission. Patient has good urine output. She is awaiting discharge. PHYSICAL EXAMINATION: Blood pressure was 113/70, heart rate 99 per minute. Patient is afebrile. Examination of the heart S1, S2. Examination of lungs bilateral breath sounds are heard. Abdomen is soft, nontender. Examination lower extremities shows no evidence of edema. [employer] exam is grossly intact. LAB: Show serum creatinine 0.54, sodium 138, potassium 4.0, hemoglobin 13 g/dL. ASSESSMENT: 1. Acute kidney injury, currently resolved. No electrolyte issues noted at this time. 2. Abdominal pain with multiple abdominal wall hernias. No plans for intervention. There is no evidence of obstruction or incarceration. 3. Hypotension on initial admission, most likely from urinary tract infection, currently resolved. 4. Chronic obstructive pulmonary disease. PLAN: We will sign off as renal function has completely resolved. Please do not hesitate to call if needed. MMODL / IJN: [id number] /
[2018-03-11 20:49] LABS: Glucose,Whole Blood 111 mg/dL (75-99)
[2018-03-12] MEDS: HEPARIN SODIUM,PORCINE 5,000 UNIT/ML 1 ML VIAL SQ SCH ×3 (00:27→16:33)
--- NOTE | 2018-03-12 01:31 | PN ---
PROGRESS NOTE DATE OF SERVICE: 03/11/2018. PRESENTING COMPLAINT: Tired. INTERVAL HISTORY: This patient presents hypotensive shock from UTI and metabolic encephalopathy and acute renal failure. The patient is doing much better. Also has abdominal pain. Seen by Dr. Rashid, felt to be from hernia with no obstruction. The patient has also been off Levophed. Did tolerate some diet. Had a bowel movement yesterday. No nausea or vomiting. No fever. REVIEW OF SYSTEMS: Done for constitutional, cardiovascular, GI, pulmonary; relevant findings as above. CURRENT MEDICATIONS: Reviewed that include IV ertapenem. PHYSICAL EXAMINATION: Temperature 98.6, pulse 74, respiratory rate 18, blood pressure 130/70, pulse ox 94 percent on room air. GENERAL APPEARANCE: Lying in bed awake. EYES: Pupils equal. Conjunctivae normal. HEENT: External nose and ears normal. Oral cavity normal. NECK: JVD not raised. Mass not palpable. Respiratory effort normal. LUNGS: Decreased breath sounds. CARDIOVASCULAR: 1st and 2nd heart sounds. No edema. ABDOMEN: Ventral hernia with mild tenderness. Liver and spleen not palpable. PSYCHIATRY: Alert and oriented x3. Mood and affect normal. INVESTIGATIONS: White count 13.3, hemoglobin 13, potassium 4, BUN 6, creatinine 0.54. ASSESSMENT: 1. Hypotensive shock from severe volume loss from acute renal failure, present on admission. The patient did require Levophed. 2. Acute renal failure prerenal from volume depression, now resolved. 3. Acute metabolic encephalopathy, renal failure, resolved. 4. Acute urinary tract infection; suspect cystitis with cultures coming back negative. On IV antibiotics. 5. Acute colitis, possibly ischemic. Patient on antibiotics. 6. Chronic obstructive pulmonary disease in an ex smoker. 7. Diabetes mellitus type 2. 8. Hyperlipidemia. 9. Chronic rheumatoid arthritis. 10.Hypothyroid. 11.Essential hypertension. 12.Morbid obesity BMI 48.8. 13.Chronic hypoxic respiratory failure on home oxygen 2 L. 14.Peripheral neuropathy secondary to diabetes. 15.Primary osteoarthritis multiple joints. 16.Restless legs syndrome. 17.Chronic medical debility, patient at baseline on the wheelchair bound. 18.Ventral abdominal hernia, seen by Dr. Rashid. No obstruction per CT scan, no need for any further intervention. PLAN: Continue current medication and treatment plan. Patient overall doing much better. Hopefully patient can be discharged tomorrow. Diet has already been advanced. MMODL / IJN: [id number] /
[2018-03-12] MEDS: LEVOTHYROXINE 100 MCG TAB PO SCH (06:31)
[2018-03-12 07:12] LABS: Glucose,Whole Blood 111 mg/dL (75-99)
[2018-03-12 07:31] LABS: Anion Gap 5 mmol/L; Blood Urea Nitrogen 8 mg/dL (7-17); Calcium 9.7 mg/dL (8.4-10.2); Carbon Dioxide 28 mmol/L (22-30); Chloride 109 mmol/L (98-107); Glucose 117 mg/dL (74-99); Magnesium 2.1 mg/dL (1.6-2.3); Phosphorus 3.4 mg/dL (2.5-4.5); Potassium 3.8 mmol/L (3.5-5.1); Sodium 142 mmol/L (137-145)
[2018-03-12 07:36] LABS: Anisocytosis Slight; HGB 13.5 gm/dL (11.4-16.0); Hypochromasia Moderate; MCH 31.3 pg (25.0-35.0); MCHC 31.4 g/dL (31.0-37.0); MCV 99.7 fL (80.0-100.0); Macrocytosis Slight; Mean Platelet Volume 8.7; Platelet Count 224 k/uL (150-450); RBC 4.32 m/uL (3.80-5.40); RDW 17.2 % (11.5-15.5); WBC 10.7 k/uL (3.8-10.6)
[2018-03-12 09:27] LABS: Eosinophils # (M) 0.75 k/uL (0-0.7); Monocytes # (M) 1.07 k/uL (0-1.0); Neutrophils # (M) 5.89 k/uL (1.3-7.7); Neutrophils % (M) 55 %; Nucleated Red Blood Cells 0 /100 WBC (0-0); Total Cells Counted 100
[2018-03-12] MEDS: INSULIN ASPART 100 UNIT/ML 1 ML 10 ML VIAL SQ SCH ×4 (10:35→21:22)
[2018-03-12] MEDS: SODIUM BICARBONATE TAB 650 MG TAB PO SCH ×2 (10:43→21:25)
[2018-03-12] MEDS: METOPROLOL TARTRATE 12.5 MG TAB PO SCH ×2 (10:43→21:25)
[2018-03-12] MEDS: PREGABALIN 100 MG CAP PO SCH ×2 (10:43→21:26)
[2018-03-12] MEDS: PANTOPRAZOLE 40 MG TABLET PO SCH (10:43)
[2018-03-12] MEDS: DULoxetine HCL 30 MG CAPSULE.DR PO SCH ×2 (10:48→16:36)
[2018-03-12] MEDS: ERTAPENEM 1 GM in SODIUM CHLORIDE 0.9% 50 ML IVPB SCH (10:48)
[2018-03-12] MEDS: NYSTATIN 100,000 UNIT/GM POWD 15 GM TOPICAL SCH ×2 (10:48→21:26)
[2018-03-12 11:03] VITALS: BMI 49.4
--- NOTE | 2018-03-12 11:23 | P.PN ---
Subjective Progress Note Date: 03/12/18 72-year-old female seen sitting up in a chair. Denies dizziness lightheadedness chest pain or abdominal pain no nausea no vomiting. Patient is being followed for acute epigastric abdominal pain. Has a personal history of multiple abdominal wall hernias. No previous history of bowel obstruction Objective - Vital Signs Vital signs: Vital Signs Temp 98.3 F 03/12/18 07:50 Pulse 93 03/12/18 07:50 Resp 16 03/12/18 07:50 BP 120/76 03/12/18 07:50 Pulse Ox 96 03/12/18 00:28 Intake & Output 03/11/18 03/12/18 03/12/18 18:59 06:59 18:59 Intake Total 160 576 222 Output Total 500 840 400 Balance -340 -264 -178 Weight 114.9 kg Intake: IV 206 Sodium Chloride 0.9% 1, 206 000 ml @ 10 mls/hr IV . Q24H [facility] Rx#:[id number] Intake, IV Titration 20 Amount Sodium Chloride 0.9% 1, 20 000 ml @ 10 mls/hr IV . Q24H [facility] Rx#:[id number] Oral 160 350 222 Output: Urine 500 840 400 Uretheral ([place]) 620 Other: Voiding Method Indwelling Catheter Indwelling Catheter Indwelling Catheter # Voids 1 - Exam Physical exam 72-year-old female sitting up in a chair appears in no acute distress Lungs adequate air movement bilaterally no shortness of breath Heart S1-S2 audible regular Abdomen obese soft protuberant abdominal hernia prior stenting was no evidence of incarceration or obstruction nondistended nontender states last bowel movement was last bowel tones present Plus edema lower extremities - Labs CBC & Chem 7: 03/12/18 06:32 03/12/18 06:32 Labs: Abnormal Lab Results - Last 24 Hours (Table) 03/11/18 03/11/18 03/11/18 Range/Units 11:27 16:53 20:45 WBC (3.8-10.6) k/uL RDW (11.5-15.5) % Monocytes # (Manual) (0-1.0) k/uL Eosinophils # (Manual) (0-0.7) k/uL Chloride (98-107) mmol/L Glucose (74-99) mg/dL POC Glucose (mg/dL) 137 H 197 H 111 H (75-99) mg/dL 03/12/18 03/12/18 03/12/18 Range/Units 06:32 06:32 07:10 WBC 10.7 H (3.8-10.6) k/uL RDW 17.2 H (11.5-15.5) % Monocytes # (Manual) 1.07 H (0-1.0) k/uL Eosinophils # (Manual) 0.75 H (0-0.7) k/uL Chloride 109 H (98-107) mmol/L Glucose 117 H (74-99) mg/dL POC Glucose (mg/dL) 111 H (75-99) mg/dL Microbiology - Last 24 Hours (Table) 03/07/18 06:54 Blood Culture - Preliminary Blood No Growth after 120 hours Assessment and Plan Assessment: Impression Computed tomography scan abdomen pelvis report reviewed large ventral abdominal hernia containing stomach and small loops of bowel no abscess no free air Computed tomography scan abdomen pelvis report reviewed indicate acute sigmoid colitis or diverticulitis with colitis favored Debilitated due to chronic end-stage osteoarthritis lower extremities Morbid obesity BMI 49 due to excess calories Rheumatoid arthritis Ventral hernia without obstruction or gangrene Acute kidney injury followed by nephrology Plan PT OT eval No indication for acute surgical intervention at this time Recommends outpatient follow-up Pain control DVT and GI prophylaxis Will follow with you The above impression and plan of care have been discussed and directed by signing physician. Mercedes Weinberg nurse practitioner acting as scribe for signing physician.
[2018-03-12 12:24] LABS: Glucose,Whole Blood 126 mg/dL (75-99)
[2018-03-12] MEDS: ATORVASTATIN 40 MG TAB PO SCH (16:30)
[2018-03-12] MEDS: SODIUM CHLORIDE 0.9% 1,000 ML IV SCH (16:30)
[2018-03-12] MEDS: ASPIRIN 81 MG PO SCH (16:30)
[2018-03-12 17:39] LABS: Glucose,Whole Blood 137 mg/dL (75-99)
[2018-03-12 20:23] LABS: Glucose,Whole Blood 150 mg/dL (75-99)
[2018-03-13] MEDS: HEPARIN SODIUM,PORCINE 5,000 UNIT/ML 1 ML VIAL SQ SCH ×3 (00:15→17:05)
[2018-03-13] MEDS: LEVOTHYROXINE 100 MCG TAB PO SCH (05:52)
[2018-03-13 07:10] LABS: Glucose,Whole Blood 122 mg/dL (75-99)
[2018-03-13 07:51] VITALS: BP 147/83; RESP 16
[2018-03-13] MEDS: INSULIN ASPART 100 UNIT/ML 1 ML 10 ML VIAL SQ SCH ×2 (08:07→12:58)
[2018-03-13] MEDS: NYSTATIN 100,000 UNIT/GM POWD 15 GM TOPICAL SCH (08:07)
[2018-03-13] MEDS: SODIUM BICARBONATE TAB 650 MG TAB PO SCH (08:08)
[2018-03-13] MEDS: ERTAPENEM 1 GM in SODIUM CHLORIDE 0.9% 50 ML IVPB SCH (08:08)
[2018-03-13] MEDS: METOPROLOL TARTRATE 12.5 MG TAB PO SCH (08:09)
[2018-03-13] MEDS: PREGABALIN 100 MG CAP PO SCH (08:09)
[2018-03-13] MEDS: DULoxetine HCL 30 MG CAPSULE.DR PO SCH (08:09)
[2018-03-13] MEDS: PANTOPRAZOLE 40 MG TABLET PO SCH (08:09)
[2018-03-13 12:03] LABS: Glucose,Whole Blood 146 mg/dL (75-99)
--- NOTE | 2018-03-13 13:14 | P.PN ---
Subjective Progress Note Date: 03/13/18 72-year-old female seen sitting up in bed [facility] is going to go to a rehab center Denies dizziness lightheadedness chest pain or abdominal pain no nausea no vomiting. Patient is being followed for acute epigastric abdominal pain. Has a personal history of multiple abdominal wall hernias. No previous history of bowel obstruction patient currently is denying any epigastric abdominal discomfort Objective - Vital Signs Vital signs: Vital Signs Temp 98.2 F 03/13/18 07:40 Pulse 97 03/13/18 07:40 Resp 16 03/13/18 07:40 BP 147/83 03/13/18 07:40 Pulse Ox 93 L 03/13/18 07:40 Intake & Output 03/12/18 03/13/18 03/13/18 18:59 06:59 18:59 Intake Total 1188 560 222 Output Total 825 960 250 Balance 363 -400 -28 Weight 114.9 kg Intake: IV 100 20 Ertapenem 0.5 gm In 100 Sodium Chloride 0.9% 50 ml @ 100 mls/hr IVPB Q24H [facility] Rx#:[id number] Sodium Chloride 0.9% 1, 20 000 ml @ 10 mls/hr IV . Q24H [facility] Rx#:[id number] Oral 1088 540 222 Output: Urine 825 960 250 Uretheral ([place]) 250 Other: Voiding Method Indwelling Catheter Indwelling Catheter - Exam Physical exam 72-year-old female sitting up in bed appears in no acute distress Lungs adequate air movement bilaterally no shortness of breath Heart S1-S2 audible regular Abdomen obese soft protuberant abdominal hernia nondistended nontender reports no nausea no vomiting Plus edema lower extremities - Labs CBC & Chem 7: 03/12/18 06:32 03/12/18 06:32 Labs: Abnormal Lab Results - Last 24 Hours (Table) 03/12/18 03/12/18 03/13/18 Range/Units 17:39 20:17 07:07 POC Glucose (mg/dL) 137 H 150 H 122 H (75-99) mg/dL 03/13/18 Range/Units 12:01 POC Glucose (mg/dL) 146 H (75-99) mg/dL Microbiology - Last 24 Hours (Table) 03/07/18 06:54 Blood Culture - Final Blood No Growth after 144 hours 03/07/18 07:10 Stool Culture - Final Stool
--- NOTE | 2018-03-13 13:14 | DS ---
DISCHARGE SUMMARY DATE OF ADMISSION: 03/07/2018 DATE OF DISCHARGE: 03/13/2018 FINAL DIAGNOSES: 1. Hypotensive shock from severe volume loss from acute renal failure, present on admission from sepsis requiring Levophed. 2. Acute renal failure, prerenal from volume loss, now resolved. 3. Acute metabolic encephalopathy, multifactorial including renal failure, resolved. 4. Acute urinary tract infection from cystitis with cultures coming back negative. 5. Acute colitis, probably ischemic. Patient on oral antibiotics. 6. Chronic obstructive pulmonary disease in an ex-smoker. 7. Diabetes mellitus type 2. 8. Hyperlipidemia. 9. Chronic rheumatoid arthritis. 10.Hypothyroid. 11.Essential hypertension. 12.Morbid obesity, body mass index of 48.8. 13.Chronic hypoxic respiratory failure on home oxygen 2 L. 14.Peripheral neuropathy secondary to diabetes. 15.Primary osteoarthritis multiple joints. 16.Restless legs syndrome. 17.Chronic medical debility patient at baseline is wheelchair bound. 18.Ventral abdominal hernia with no obstruction. HOSPITAL COURSE: This very pleasant lady presented with some altered mental status, weak, tired, run down, blood pressure down to 60 systolic. Patient put in ICU with Levophed. Patient also was found to be rather dehydrated and dry. Patient's creatinine was 3.81, by the time of discharge was down to 0.61. Patient also found to have UTI, treated for the same, onset of abdominal pain. Patient is found to have acute colitis, at this point. Responded well. Currently patient is tolerating a diet, having bowel movements. PHYSICAL EXAMINATION: Temperature 98.2, pulse 97, respiration 16, blood pressure 147/83, pulse ox 93% on 2 L. Abdomen has got a ventral hernia with no tenderness. Lungs fair entry. PSYCH: AO x3. Mood and affect normal. CONSULTATION: Dr. Medellin from Critical Care, Dr. Blackwood from Nephrology, Dr. Rashid from General Surgery. DISCHARGE MEDICATIONS: The following medications were discontinued insulin, lispro 6 units t.i.d. discontinued, Lasix 40 mg daily discontinued, Claritin 10 mg daily p.r.n. discontinued, Levemir 20 units subcu q.h.s. discontinued, Januvia 100 mg p.o. daily, Cymbalta. OTHER MEDICINES: The patient is getting discharged on: 1. Januvia 100 mg p.o. daily. 2. Cymbalta 30 mg p.o. b.i.d. 3. Requip 3 mg p.o. q.h.s. 4. Xarelto 20 mg p.o. daily. 5. Allopurinol 100 mg p.o. daily. 6. Synthroid 100 mcg p.o. daily. 7. Prilosec 20 mg p.o. daily. 8. Lipitor 40 mg p.o. daily at 5 pm. 9. Tylenol 650 mg q.6 p.r.n. 10.ProStat supplement 30 mL daily at 5 pm. 11.Symbicort 80/4.5 two puffs b.i.d. 12.Vitamin D3 four thousand units p.o. daily. 13.Flexeril 5 mg p.o. t.i.d. p.r.n. 14.Iron 325 p.o. with supper. 15.Glucerna shake 1 can p.o. q.h.s. 16.Probiotic 1 capsule p.o. daily. 17.MiraLAX 17 g p.o. daily p.r.n. 18.Ventolin HFA 2 puffs q.4 p.r.n. 19.Myrbetriq 50 mg p.o. daily. 20.Zofran 4 mg q.8 p.r.n. 21.Shayy-Colace 2 tablets p.o. daily. 22.Aspirin 81 mg daily. 23.Lotrimin AF 1 application topical b.i.d. 24.Cranberry 425 with supper. 25. 500 mg p.o. t.i.d. p.r.n. 26.Motrin gel 2 g topical t.i.d. 27.Lopressor 12.5 mg p.o. b.i.d. 28.Santyl topical daily. 29.Augmentin 875 one tab q.12 fourteen tablets. 30.Wilsons 10 one tablet q.4 p.r.n. 31.Lyrica 200 mg p.o. b.i.d. 32.Klonopin 0.25 mg q.12 p.r.n. DISPOSITION: [facility]. FOLLOWUP: Follow up with Dr. Neville at the [facility]. DIET: Soft, bland, diabetic diet. Discussion of discharge planning more than 35 minutes. MMODL / IJN: [id number] /
[2018-03-13] MEDS ORDERED: DOCUSATE 100 MG CAP PO SCH (13:15)
--- NOTE | 2018-03-13 13:42 | PN ---
PROGRESS NOTE DATE OF SERVICE: 03/12/2018 PRESENTING COMPLAINT: Tired. INTERVAL HISTORY: This patient was seen by me yesterday. Admitted with hypotensive shock from UTI and metabolic encephalopathy and also had acute renal failure. The patient continues to improve. Abdominal pain that was present is also resolved. Tolerating a diet. The patient is pending authorization to go to ECF. The patient is perky, overall feels much better. REVIEW OF SYSTEMS: Done for constitutional, cardiovascular, GI, pulmonary; relevant findings as above. CURRENT MEDICATIONS: Current medications are reviewed. PHYSICAL EXAMINATION: On examination, temperature 98.3, pulse 93, respirations 16, blood pressure 120/76, pulse ox 96% on 2 L. GENERAL APPEARANCE: Lying in bed, awake, comfortable. EYES: Pupils equal. Conjunctivae normal. HENT: External appearance of nose and ears normal. Oral cavity normal. NECK: JVD not raised. Mass not palpable. RESPIRATORY: Effort normal. LUNGS: Decreased breath sounds. CARDIOVASCULAR: First and second sounds normal. No edema. ABDOMEN: Ventral hernia present. No tenderness. Liver and spleen not palpable. PSYCHIATRY: Alert and oriented x3. Mood and affect normal. INVESTIGATIONS: White count 10.7, hemoglobin 13.5. Potassium 3.8. ASSESSMENT: 1. Hypotensive shock from severe volume loss from acute renal failure, present on admission. Patient did require Levophed. 2. Acute renal failure prerenal from volume depletion, now resolved. 3. Acute metabolic encephalopathy from renal failure, resolved. 4. Acute urinary tract infection suspect cystitis with cultures coming back negative on antibiotics. 5. Acute colitis possibly ischemic. Patient on antibiotics. 6. Chronic obstructive pulmonary disease in an ex-smoker. 7. Diabetes mellitus type 2. 8. Hyperlipidemia. 9. Chronic rheumatoid arthritis. 10.Hypothyroid. 11.Essential hypertension. 12.Morbid obesity, body mass index 48.8. 13.Chronic hypoxic respiratory failure on home oxygen 2 L. 14.Peripheral neuropathy secondary to diabetes. 15.Primary osteoarthritis multiple joints. 16.Restless legs syndrome. 17.Chronic medical debility, patient at baseline wheelchair bound. 18.Ventral abdominal hernia, nonobstructive. PLAN: Patient continues to do much better, awaiting patient to go to ECF. Authorization was pending. Care was discussed with the patient. MMODL / IJN: [id number] /
[2018-03-13 15:10] VITALS: PULSE 92; TEMP 98.5
[2018-03-13] MEDS ORDERED: RIVAROXABAN 20 MG TAB PO SCH (17:00)
[2018-03-13] MEDS: SODIUM CHLORIDE 0.9% 1,000 ML IV SCH (17:05)
== END 2018-03-13 17:25 | DRG 871 ==
LOC: EC 02:54 → 4MS4W 06:29 → 6ICU 08:25 → 3SUR 03-11 06:43
PROVIDERS: ADMIT Hospitalist; ATTEND Hospitalist
DX: A41.9 Sepsis, unspecified organism (principal); R65.21 Severe sepsis with septic shock; R57.1 Hypovolemic shock; G93.41 Metabolic encephalopathy; K55.039 Acute (reversible) ischemia of large intestine, extent unspecified; N17.9 Acute kidney failure, unspecified; Z68.42 Body mass index [BMI] 45.0-49.9, adult; J96.11 Chronic respiratory failure with hypoxia; E87.2 Acidosis; J44.1 Chronic obstructive pulmonary disease with (acute) exacerbation; E11.42 Type 2 diabetes mellitus with diabetic polyneuropathy; E66.01 Morbid (severe) obesity due to excess calories; E83.52 Hypercalcemia; I44.4 Left anterior fascicular block; M06.9 Rheumatoid arthritis, unspecified; N30.90 Cystitis, unspecified without hematuria; M17.10 Unilateral primary osteoarthritis, unspecified knee; K43.9 Ventral hernia without obstruction or gangrene; I10 Essential (primary) hypertension; E78.5 Hyperlipidemia, unspecified; F32.9 Major depressive disorder, single episode, unspecified; E03.9 Hypothyroidism, unspecified; M54.5 Low back pain; G89.29 Other chronic pain; G25.81 Restless legs syndrome; M10.9 Gout, unspecified; L98.9 Disorder of the skin and subcutaneous tissue, unspecified; Z99.81 Dependence on supplemental oxygen; Z79.01 Long term (current) use of anticoagulants; Z79.82 Long term (current) use of aspirin; Z79.890 Hormone replacement therapy; Z79.4 Long term (current) use of insulin; Z79.51 Long term (current) use of inhaled steroids; Z79.899 Other long term (current) drug therapy; Z86.718 Personal history of other venous thrombosis and embolism; Z87.01 Personal history of pneumonia (recurrent); Z86.711 Personal history of pulmonary embolism; Z87.11 Personal history of peptic ulcer disease; Z92.3 Personal history of irradiation; Z90.81 Acquired absence of spleen; Z85.71 Personal history of Hodgkin lymphoma; Z90.49 Acquired absence of other specified parts of digestive tract; Z98.891 History of uterine scar from previous surgery; Z87.81 Personal history of (healed) traumatic fracture; Z96.651 Presence of right artificial knee joint; Z87.891 Personal history of nicotine dependence; Z87.440 Personal history of urinary (tract) infections; Z99.3 Dependence on wheelchair; Z74.01 Bed confinement status; Z86.19 Personal history of other infectious and parasitic diseases; Z88.8 Allergy status to other drugs, medicaments and biological substances; Z91.041 Radiographic dye allergy status; Z81.8 Family history of other mental and behavioral disorders
CPT/HCPCS: 36415; 51702; 71045; 71046; 74176; 76770; 80048; 80053; 81001; 82272; 82533; 82550; 82553; 83036; 83605; 83630; 83735; 84100; 84484; 85025; 85610; 85730; 87040; 87045; 87046; 87086; 87324; 93005; 96361; 96365; 96366; 96367; 99285

== ENCOUNTER 2018-04-11 16:12 | Inpatient (IN) | payer MEDICARE ==
[2018-04-11] MEDS ORDERED: IBUPROFEN 600 MG TAB PO STA (16:41)
[2018-04-11] MEDS ORDERED: ACETAMINOPHEN TAB 500 MG TAB PO STA (16:41)
[2018-04-11] MEDS ORDERED: CEFEPIME 2 GM in SODIUM CHLORIDE 0.9% 50 ML IVPB STA (16:49)
--- NOTE | 2018-04-11 16:52 | ED ---
General Adult HPI - General Chief complaint: Chest Pain Stated complaint: Low BP Time Seen by Provider: 04/11/18 16:20 Source: patient, family, RN notes reviewed Mode of arrival: wheelchair Limitations: no limitations - History of Present Illness Initial comments: This is a 72-year-old female presents emergency Department with a fever and right-sided flank pain. Patient states she was recently admitted to the hospital for urinary tract infection for which she was septic and sent to [facility] she was released from [facility] on Monday. Patient states since then she was feeling fine on Monday however on Monday she spiked 103 fever today started having right-sided pain and continues to have some chills so she decided come emergency department. Patient states she's also had some shortness of breath and mild chest pain. Patient also complains of some pains in her neck. Patient denies any nausea vomiting diarrhea. Patient denies any dysuria hematuria urinary frequency. Patient states she still on Augmentin at home. Patient denies headache patient denies numbness weakness. - Related Data Home Medications Medication Instructions Recorded Confirmed sitaGLIPtin [Januvia] 100 mg PO DAILY@0800 10/09/13 04/11/18 DULoxetine HCL [Cymbalta] 30 mg PO BID@0800,1700 11/27/15 04/11/18 rOPINIRole HCL [Requip] 3 mg PO HS@2100 11/27/15 04/11/18 Rivaroxaban [Xarelto] 20 mg PO DAILY@1700 05/12/16 04/11/18 Allopurinol [Zyloprim] 100 mg PO DAILY@0800 09/20/16 04/11/18 Levothyroxine Sodium [Synthroid] 100 mcg PO DAILY 09/20/16 04/11/18 Omeprazole [PriLOSEC] 20 mg PO DAILY@0700 09/20/16 04/11/18 Atorvastatin [Lipitor] 40 mg PO DAILY@1700 05/02/17 04/11/18 Acetaminophen Tab [Tylenol] 650 mg PO Q6H PRN 08/03/17 04/11/18 Amino Acids/Protein Hydrolys 30 ml PO DAILY@1700 08/03/17 04/11/18 [Pro-Stat Supplement] Budesonide/Formoterol Fumarate 2 puff INHALATION RT-BID PRN 08/03/17 04/11/18 [Symbicort 80-4.5 Mcg Inhaler] Cholecalciferol (Vitamin D3) 4,000 unit PO DAILY@1700 08/03/17 04/11/18 [Vitamin D3] Cyclobenzaprine [Flexeril] 5 mg PO TID PRN 08/03/17 04/11/18 Ferrous Sulfate [Feosol] 325 mg PO AC-SUPPER 08/03/17 04/11/18 Glucerna Shake 1 can PO HS 08/03/17 04/11/18 L.acidoph,Paracasei, B.lactis 1 cap PO DAILY 08/03/17 04/11/18 [Probiotic] Polyethylene Glycol 3350 [Miralax] 17 gm PO DAILY PRN 08/03/17 04/11/18 Albuterol Inhaler [Ventolin Hfa 2 puff INHALATION RT-Q4H PRN 09/07/17 04/11/18 Inhaler] Mirabegron [Myrbetriq] 50 mg PO DAILY 09/07/17 04/11/18 Ondansetron [Zofran] 4 mg PO Q8HR PRN 09/07/17 04/11/18 Sennosides/Docusate Sodium [Shayy 2 tab PO DAILY 09/07/17 04/11/18 Colace] Aspirin EC [Ecotrin Low Dose] 81 mg PO DAILY@1700 09/13/17 04/11/18 Miconazole Nitrate [Lotrimin AF 1 applic TOPICAL BID 09/13/17 04/11/18 Powder] Cranberry 425 Cap 425 mg PO AC-SUPPER 11/24/17 04/11/18 Cranberry Fruit Concentrate [Azo 500 mg PO TID PRN 11/24/17 04/11/18 Cranberry] Diclofenac Sodium [Voltaren Gel] 2 gram TOPICAL TID 11/24/17 04/11/18 Metoprolol Tartrate [Lopressor] 12.5 mg PO BID@0800,1700 11/24/17 04/11/18 Collagenase [Santyl] 1 applic TOPICAL DAILY 02/20/18 04/11/18 Previous Rx's Medication Instructions Recorded HYDROcodone/APAP 10-325MG [Darden 1 tab PO Q4HR PRN #14 tab 03/13/18 10-325] Pregabalin [Lyrica] 200 mg PO BID@0800,2100 #6 capsule 03/13/18 clonazePAM [KlonoPIN] 0.25 mg PO Q12H PRN #6 tab 03/13/18 Allergies Allergy/AdvReac Type Severity Reaction Status Date / Time No Known Drug Allergies Allergy No known Verified 04/11/18 17:06 allergy Review of Systems ROS Statement: Those systems with pertinent positive or pertinent negative responses have been documented in the HPI. ROS Other: All systems not noted in ROS Statement are negative. Past Medical History Past Medical History: Cancer, COPD, Diabetes Mellitus, Deep Vein Thrombosis (DVT ), Hyperlipidemia, Hypertension, Pneumonia, Pulmonary Embolus (PE), Rheumatoid Arthritis (RA), Skin Disorder, Thyroid Disorder Additional Past Medical History / Comment(s): Morbid obesity, COPD, diabetes mellitus, remote history of DVT and pulmonary embolism, hypertension, hyperlipidemia, hypothyroidism, rheumatoid arthritis, history of fracture of the right lower extremity requiring surgery, right lower extremity wound that has healed, previous history of Hodgkin's lymphoma treated with a splenectomy and subsequent radiation therapy in 1993, chronic hypoxic respiratory failure patient on oxygen at 2 L overnight, 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 Past Anesthesia/Blood Transfusion Reactions: No Reported Reaction Past Psychological History: Depression Smoking Status: Former smoker Past Alcohol Use History: None Reported Past Drug Use History: None Reported - Past Family History Father Family Medical History: No Reported History Additional Family Medical History / Comment(s): Father was healthy and lived to be 88yrs old. Mother Family Medical History: No Reported History Additional Family Medical History / Comment(s): Pt states mother was healthy and lived to be 90yrs old. Son(s) Family Medical History: No Reported History Additional Family Medical History / Comment(s): She relates that her parents of old age her mother was about 90 father was 88, without sniffing and medical troubles. She does relate that her son committed suicide but her daughter is quite healthy. General Exam - General Exam Comments Initial Comments: GENERAL: Patient is well-developed and well-nourished. Patient is nontoxic and well- hydrated and is in mild distress. ENT: Neck is soft and supple. No significant lymphadenopathy is noted. Oropharynx is clear. Moist mucous membranes. Neck has full range of motion without eliciting any pain. EYES: The sclera were anicteric and conjunctiva were pink and moist. Extraocular movements were intact and pupils were equal round and reactive to light. Eyelids were unremarkable. PULMONARY: Unlabored respirations. Good breath sounds bilaterally. No audible rales rhonchi or wheezing was noted. CARDIOVASCULAR: There is a regular rate and rhythm without any murmurs gallops or rubs. ABDOMEN: Soft and nontender with normal bowel sounds. SKIN: Skin is clear with no lesions or rashes and otherwise unremarkable. NEUROLOGIC: Patient is alert and oriented x3. Cranial nerves II through XII are grossly intact. Motor and sensory are also intact. Normal speech, volume and content. Symmetrical smile. MUSCULOSKELETAL: Normal extremities with adequate strength and full range of motion. LYMPHATICS: No significant lymphadenopathy is noted PSYCHIATRIC: Normal psychiatric evaluation. Limitations: no limitations Course Vital Signs 04/11/18 04/11/18 04/11/18 16:16 16:48 17:39 Temperature 97.6 F 100.7 F H Pulse Rate 105 H 99 Respiratory 18 23 Rate Blood Pressure 101/66 92/55 O2 Sat by Pulse 94 L 95 Oximetry 04/11/18 19:25 Temperature 99.2 F Pulse Rate 97 Respiratory 20 Rate Blood Pressure 101/50 O2 Sat by Pulse 94 L Oximetry Medical Decision Making - Medical Decision Making EKG shows sinus tachycardia at 102 bpm OH interval 240 QRS is under QT intervals 348 QTC is 455 per patient's EKG shows no ST segment elevation or depression or T wave abnormalities are noted. The patient's chest x-ray shows a right upper lobe pneumonia. I started the patient on antibiotics. I spoke with some physicians agreed to admit the patient admitted the patient wrote admitting orders. - Lab Data Result diagrams: 04/11/18 17:07 11/07/18 17:07 Lab Results 04/11/18 04/11/18 04/11/18 Range/Units 17:07 17:07 17:07 WBC 16.9 H (3.8-10.6) k/uL RBC 4.64 (3.80-5.40) m/uL Hgb 15.0 (11.4-16.0) gm/dL Hct 47.7 H (34.0-46.0) % MCV 102.8 H (80.0-100.0) fL MCH 32.4 (25.0-35.0) pg MCHC 31.5 (31.0-37.0) g/dL RDW 16.6 H (11.5-15.5) % Plt Count 219 (150-450) k/uL Neutrophils % 82 % Lymphocytes % 11 % Monocytes % 4 % Eosinophils % 2 % Basophils % 0 % Neutrophils # 13.9 H (1.3-7.7) k/uL Lymphocytes # 1.8 (1.0-4.8) k/uL Monocytes # 0.7 (0-1.0) k/uL Eosinophils # 0.3 (0-0.7) k/uL Basophils # 0.0 (0-0.2) k/uL Hypochromasia Slight Anisocytosis Slight Macrocytosis Moderate PT (9.0-12.0) sec INR (<1.2) APTT (22.0-30.0) sec Sodium 141 (137-145) mmol/L Potassium 5.0 (3.5-5.1) mmol/L Chloride 112 H (98-107) mmol/L Carbon Dioxide 23 (22-30) mmol/L Anion Gap 6 mmol/L BUN 25 H (7-17) mg/dL Creatinine 0.99 (0.52-1.04) mg/dL Est GFR (CKD-EPI)AfAm 66 (>60 ml/min/1.73 sqM) Est GFR (CKD-EPI)NonAf 57 (>60 ml/min/1.73 sqM) Glucose 172 H (74-99) mg/dL Plasma Lactic Acid Gee 0.9 (0.7-2.0) mmol/L Calcium 10.6 H (8.4-10.2) mg/dL Total Bilirubin 0.7 (0.2-1.3) mg/dL AST 30 (14-36) U/L ALT 26 (9-52) U/L Alkaline Phosphatase 109 (38-126) U/L Troponin I (0.000-0.034) ng/mL Total Protein 6.6 (6.3-8.2) g/dL Albumin 3.4 L (3.5-5.0) g/dL Urine Color Urine Appearance (Clear) Urine pH (5.0-8.0) Ur Specific [place] (1.001-1.035) Urine Protein (Negative) Urine Glucose (UA) (Negative) Urine Ketones (Negative) Urine Blood (Negative) Urine Nitrite (Negative) Urine Bilirubin (Negative) Urine Urobilinogen (<2.0) mg/dL Ur Leukocyte Esterase (Negative) Urine RBC (0-5) /hpf Urine WBC (0-5) /hpf Ur Squamous Epith Cells (0-4) /hpf Hyaline Casts (0-2) /lpf Urine Mucus (None) /hpf Influenza Type A RNA (Not Detectd) Influenza Type B (PCR) (Not Detectd) 04/11/18 04/11/18 04/11/18 Range/Units 17:07 17:07 17:35 WBC (3.8-10.6) k/uL RBC (3.80-5.40) m/uL Hgb (11.4-16.0) gm/dL Hct (34.0-46.0) % MCV (80.0-100.0) fL MCH (25.0-35.0) pg MCHC (31.0-37.0) g/dL RDW (11.5-15.5) % Plt Count (150-450) k/uL Neutrophils % % Lymphocytes % % Monocytes % % Eosinophils % % Basophils % % Neutrophils # (1.3-7.7) k/uL Lymphocytes # (1.0-4.8) k/uL Monocytes # (0-1.0) k/uL Eosinophils # (0-0.7) k/uL Basophils # (0-0.2) k/uL Hypochromasia Anisocytosis Macrocytosis PT 11.0 (9.0-12.0) sec INR 1.1 (<1.2) APTT 29.4 (22.0-30.0) sec Sodium (137-145) mmol/L Potassium (3.5-5.1) mmol/L Chloride (98-107) mmol/L Carbon Dioxide (22-30) mmol/L Anion Gap mmol/L BUN (7-17) mg/dL Creatinine (0.52-1.04) mg/dL Est GFR (CKD-EPI)AfAm (>60 ml/min/1.73 sqM) Est GFR (CKD-EPI)NonAf (>60 ml/min/1.73 sqM) Glucose (74-99) mg/dL Plasma Lactic Acid Gee (0.7-2.0) mmol/L Calcium (8.4-10.2) mg/dL Total Bilirubin (0.2-1.3) mg/dL AST (14-36) U/L ALT (9-52) U/L Alkaline Phosphatase (38-126) U/L Troponin I <0.012 (0.000-0.034) ng/mL Total Protein (6.3-8.2) g/dL Albumin (3.5-5.0) g/dL Urine Color Urine Appearance (Clear) Urine pH (5.0-8.0) Ur Specific [place] (1.001-1.035) Urine Protein (Negative) Urine Glucose (UA) (Negative) Urine Ketones (Negative) Urine Blood (Negative) Urine Nitrite (Negative) Urine Bilirubin (Negative) Urine Urobilinogen (<2.0) mg/dL Ur Leukocyte Esterase (Negative) Urine RBC (0-5) /hpf Urine WBC (0-5) /hpf Ur Squamous Epith Cells (0-4) /hpf Hyaline Casts (0-2) /lpf Urine Mucus (None) /hpf Influenza Type A RNA Not Detected (Not Detectd) Influenza Type B (PCR) Not Detected (Not Detectd) 04/11/18 Range/Units 19:15 WBC (3.8-10.6) k/uL RBC (3.80-5.40) m/uL Hgb (11.4-16.0) gm/dL Hct (34.0-46.0) % MCV (80.0-100.0) fL MCH (25.0-35.0) pg MCHC (31.0-37.0) g/dL RDW (11.5-15.5) % Plt Count (150-450) k/uL Neutrophils % % Lymphocytes % % Monocytes % % Eosinophils % % Basophils % % Neutrophils # (1.3-7.7) k/uL Lymphocytes # (1.0-4.8) k/uL Monocytes # (0-1.0) k/uL Eosinophils # (0-0.7) k/uL Basophils # (0-0.2) k/uL Hypochromasia Anisocytosis Macrocytosis PT (9.0-12.0) sec INR (<1.2) APTT (22.0-30.0) sec Sodium (137-145) mmol/L Potassium (3.5-5.1) mmol/L Chloride (98-107) mmol/L Carbon Dioxide (22-30) mmol/L Anion Gap mmol/L BUN (7-17) mg/dL Creatinine (0.52-1.04) mg/dL Est GFR (CKD-EPI)AfAm (>60 ml/min/1.73 sqM) Est GFR (CKD-EPI)NonAf (>60 ml/min/1.73 sqM) Glucose (74-99) mg/dL Plasma Lactic Acid Gee (0.7-2.0) mmol/L Calcium (8.4-10.2) mg/dL Total Bilirubin (0.2-1.3) mg/dL AST (14-36) U/L ALT (9-52) U/L Alkaline Phosphatase (38-126) U/L Troponin I (0.000-0.034) ng/mL Total Protein (6.3-8.2) g/dL Albumin (3.5-5.0) g/dL Urine Color Yellow Urine Appearance Cloudy H (Clear) Urine pH 6.0 (5.0-8.0) Ur Specific [place] 1.026 (1.001-1.035) Urine Protein 1+ H (Negative) Urine Glucose (UA) Negative (Negative) Urine Ketones Negative (Negative) Urine Blood Negative (Negative) Urine Nitrite Negative (Negative) Urine Bilirubin Negative (Negative) Urine Urobilinogen 2.0 (<2.0) mg/dL Ur Leukocyte Esterase Moderate H (Negative) Urine RBC 3 (0-5) /hpf Urine WBC 29 H (0-5) /hpf Ur Squamous Epith Cells 1 (0-4) /hpf Hyaline Casts 44 H (0-2) /lpf Urine Mucus Many H (None) /hpf Influenza Type A RNA (Not Detectd) Influenza Type B (PCR) (Not Detectd) Disposition Clinical Impression: Pneumonia Disposition: ADMITTED IP TO THIS HOSP Referrals: Patric Richard MD [Primary Care Provider] - 1-2 days Time of Disposition: 19:54
[2018-04-11 17:35] LABS: Anisocytosis Slight; Basophils % (A) 0 %; Eosinophils # (A) 0.3 k/uL (0-0.7); Eosinophils % (A) 2 %; HCT 47.7 % (34.0-46.0); Hypochromasia Slight; Lymphocytes # (A) 1.8 k/uL (1.0-4.8); Lymphocytes % (A) 11 %; MCH 32.4 pg (25.0-35.0); MCHC 31.5 g/dL (31.0-37.0); MCV 102.8 fL (80.0-100.0); Macrocytosis Moderate; Mean Platelet Volume 8.5; Monocytes # (A) 0.7 k/uL (0-1.0); Monocytes % (A) 4 %; Neutrophils # (A) 13.9 k/uL (1.3-7.7); Neutrophils % (A) 82 %; Platelet Count 219 k/uL (150-450); RBC 4.64 m/uL (3.80-5.40); RDW 16.6 % (11.5-15.5); WBC 16.9 k/uL (3.8-10.6)
[2018-04-11] MEDS ORDERED: SODIUM CHLORIDE 0.9% 1,000 ML IV ONE (17:45)
[2018-04-11 17:47] LABS: Albumin 3.4 g/dL (3.5-5.0); Calcium 10.6 mg/dL (8.4-10.2); Total Bilirubin 0.7 mg/dL (0.2-1.3); Total Protein 6.6 g/dL (6.3-8.2)
[2018-04-11 17:50] LABS: INR 1.1 (<1.2); Partial Thromboplastin Time 29.4 sec (22.0-30.0)
--- NOTE | 2018-04-11 18:12 | XR ---
EXAMINATION TYPE: XR chest 2V DATE OF EXAM: 04/11/2018 COMPARISON: 03/09/2018 HISTORY: Weakness and nausea TECHNIQUE: Frontal and lateral views of the chest are obtained. FINDINGS: There is patchy airspace infiltrate in the right upper lobe. There is no heart failure. Th oracic aorta is atheromatous. There is no pleural effusion. There are chest leads. IMPRESSION: There is increasing right upper lobe pneumonia compared to old exam. No heart failure. 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
[2018-04-11 19:45] LABS: Appearance,Urine Cloudy (Clear); Bilirubin,Urine Negative (Negative); Blood,Urine Negative (Negative); Color,Urine Yellow; Glucose,Urine (UA) Negative (Negative); Hyaline Casts,Urine 44 /lpf (0-2); Ketones,Urine Negative (Negative); Leukocyte Esterase,Urine Moderate (Negative); Mucus,Urine Many /hpf; Nitrite,Urine Negative (Negative); Protein,Urine 1+ (Negative); RBC,Urine 3 /hpf (0-5); Specific Gravity,Urine 1.026 (1.001-1.035); Squamous Epithelial Cell,Urine 1 /hpf (0-4); WBC,Urine 29 /hpf (0-5)
[2018-04-11] MEDS ORDERED: LEVOFLOXACIN 750MG-D5W PMX 750 MG in DEXTROSE/WATER 1 150ML.BAG IVPB STA (19:54)
[2018-04-11] MEDS ORDERED: PNEUMONIA PROTOCOL UTILIZED 1 EACH MISC PO PRN (19:54)
[2018-04-11] MEDS ORDERED: PIPERACILLIN-TAZOBACTAM 3.375 GM in SODIUM CHLORIDE 0.9% 100 ML IVPB STA (19:54)
[2018-04-11] MEDS ORDERED: ACETAMINOPHEN TAB 325 MG TAB PO PRN (22:13)
[2018-04-11] MEDS: SODIUM CHLORIDE 0.9% 1,000 ML IV SCH (22:15)
--- NOTE | 2018-04-11 22:35 | P.HPIM ---
History of Present Illness H&P Date: 04/11/18 Chief Complaint: Fevers and right flank pain 72-year-old female with history of diabetes mellitus, hypertension, COPD on home oxygen, hypothyroidism. Patient presents to the hospital due to fevers and right flank pain. Patient also reports urinary urgency and frequency. He denies any hematuria but does report some dysuria. Patient denies any respiratory symptoms of coughing, or shortness of breath at this point. At home she was having fevers of 103 very night along with right dull flank pain nonradiating. 6-7 out of 10 in severity. Patient recently has multiple admissions to the hospital over the past 2-3 months when admission was for sepsis secondary to pneumonia and the other admission later on was 4 suspected TIA, and then later on patient presented with sepsis secondary to UTI her urine culture grew Pseudomonas during that hospitalization course patient required IV pressors and patient to the ICU. Then after patient was stabilized early on March she was discharged to senior living she went to [facility] she was discharged from the senior living 3 days ago. She just finished her course of antibiotic Augmentin last week. Currently patient feels comfortable denies any chest pain or trouble breathing denies any nausea or vomiting denies any hematuria denies any GI bleeding. In the ED she was found to be tachycardic and febrile labs showed leukocytosis. Chest x-ray showed some right upper lung infiltrations but patient denied any symptoms. Patient was admitted for treatment of sepsis secondary to urinary tract infection and possible pyelonephritis. Review of Systems Pertinent positives as noted in HPI. All other systems were reviewed and are negative Past Medical History Past Medical History: Cancer, COPD, Diabetes Mellitus, Deep Vein Thrombosis (DVT ), Hyperlipidemia, Hypertension, Pneumonia, Pulmonary Embolus (PE), Rheumatoid Arthritis (RA), Skin Disorder, Thyroid Disorder Additional Past Medical History / Comment(s): Morbid obesity, COPD, diabetes mellitus, remote history of DVT and pulmonary embolism, hypertension, hyperlipidemia, hypothyroidism, rheumatoid arthritis, history of fracture of the right lower extremity requiring surgery, right lower extremity wound that has healed, previous history of Hodgkin's lymphoma treated with a splenectomy and subsequent radiation therapy in 1993, chronic hypoxic respiratory failure patient on oxygen at 2 L overnight, 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 Past Anesthesia/Blood Transfusion Reactions: No Reported Reaction Past Psychological History: Depression Smoking Status: Former smoker Past Alcohol Use History: None Reported Past Drug Use History: None Reported - Past Family History Father Family Medical History: No Reported History Additional Family Medical History / Comment(s): Father was healthy and lived to be 88yrs old. Mother Family Medical History: No Reported History Additional Family Medical History / Comment(s): Pt states mother was healthy and lived to be 90yrs old. Son(s) Family Medical History: No Reported History Additional Family Medical History / Comment(s): She relates that her parents of old age her mother was about 90 father was 88, without sniffing and medical troubles. She does relate that her son committed suicide but her daughter is quite healthy. Medications and Allergies Home Medications Medication Instructions Recorded Confirmed Type sitaGLIPtin [Januvia] 100 mg PO DAILY@0800 10/09/13 04/11/18 History DULoxetine HCL [Cymbalta] 30 mg PO BID@0800,1700 11/27/15 04/11/18 History rOPINIRole HCL [Requip] 3 mg PO HS@2100 11/27/15 04/11/18 History Rivaroxaban [Xarelto] 20 mg PO DAILY@1700 05/12/16 04/11/18 History Allopurinol [Zyloprim] 100 mg PO DAILY@0800 09/20/16 04/11/18 History Levothyroxine Sodium [Synthroid] 100 mcg PO DAILY 09/20/16 04/11/18 History Omeprazole [PriLOSEC] 20 mg PO DAILY@0700 09/20/16 04/11/18 History Atorvastatin [Lipitor] 40 mg PO DAILY@1700 05/02/17 04/11/18 History Acetaminophen Tab [Tylenol] 650 mg PO Q6H PRN 08/03/17 04/11/18 History Amino Acids/Protein Hydrolys 30 ml PO DAILY@1700 08/03/17 04/11/18 History [Pro-Stat Supplement] Budesonide/Formoterol Fumarate 2 puff INHALATION RT-BID PRN 08/03/17 04/11/18 History [Symbicort 80-4.5 Mcg Inhaler] Cholecalciferol (Vitamin D3) 4,000 unit PO DAILY@1700 08/03/17 04/11/18 History [Vitamin D3] Cyclobenzaprine [Flexeril] 5 mg PO TID PRN 08/03/17 04/11/18 History Ferrous Sulfate [Feosol] 325 mg PO AC-SUPPER 08/03/17 04/11/18 History Glucerna Shake 1 can PO HS 08/03/17 04/11/18 History L.acidoph,Paracasei, B.lactis 1 cap PO DAILY 08/03/17 04/11/18 History [Probiotic] Polyethylene Glycol 3350 [Miralax] 17 gm PO DAILY PRN 08/03/17 04/11/18 History Albuterol Inhaler [Ventolin Hfa 2 puff INHALATION RT-Q4H PRN 09/07/17 04/11/18 History Inhaler] Mirabegron [Myrbetriq] 50 mg PO DAILY 09/07/17 04/11/18 History Ondansetron [Zofran] 4 mg PO Q8HR PRN 09/07/17 04/11/18 History Sennosides/Docusate Sodium [Shayy 2 tab PO DAILY 09/07/17 04/11/18 History Colace] Aspirin EC [Ecotrin Low Dose] 81 mg PO DAILY@1700 09/13/17 04/11/18 History Miconazole Nitrate [Lotrimin AF 1 applic TOPICAL BID 09/13/17 04/11/18 History Powder] Cranberry 425 Cap 425 mg PO AC-SUPPER 11/24/17 04/11/18 History Cranberry Fruit Concentrate [Azo 500 mg PO TID PRN 11/24/17 04/11/18 History Cranberry] Diclofenac Sodium [Voltaren Gel] 2 gram TOPICAL TID 11/24/17 04/11/18 History Metoprolol Tartrate [Lopressor] 12.5 mg PO BID@0800,1700 11/24/17 04/11/18 History Collagenase [Santyl] 1 applic TOPICAL DAILY 02/20/18 04/11/18 History HYDROcodone/APAP 10-325MG [Gates 1 tab PO Q4HR PRN #14 tab 03/13/18 04/11/18 Rx 10-325] Pregabalin [Lyrica] 200 mg PO BID@0800,2100 #6 capsule 03/13/18 04/11/18 Rx clonazePAM [KlonoPIN] 0.25 mg PO Q12H PRN #6 tab 03/13/18 04/11/18 Rx Allergies Allergy/AdvReac Type Severity Reaction Status Date / Time No Known Drug Allergies Allergy No known Verified 04/11/18 17:06 allergy Physical Exam Vitals: Vital Signs Temp Pulse Resp BP Pulse Ox 04/11/18 21:25 99.0 F 93 21 120/82 95 04/11/18 19:25 99.2 F 97 20 101/50 94 L 04/11/18 17:39 99 23 92/55 95 04/11/18 16:48 100.7 F H 04/11/18 16:16 97.6 F 105 H 18 101/66 94 L Intake and Output 04/11/18 04/11/18 04/11/18 06:59 14:59 22:59 Other: Weight 111.584 kg Constitutional: No acute distress, conversant, pleasant, morbidly obese Eyes: Anicteric sclerae, moist conjunctiva, no lid-lag Pupils equal round reactive to light ENMT: NC/AT Oropharynx clear, no erythema, or exudates Neck: Supple, FROM, no masses, or JVD No carotid bruits No thyromegaly Lungs: Good breath sounds bilaterally no appreciated rales or rhonchi or wheezes Clear to percussion Normal respiratory effort, no accessory muscle use Cardiovascular: Heart regular in rate and rhythm, No murmurs, gallops, or rubs No peripheral edema Abdominal: Soft, tenderness to palpation of the right costovertebral angle Nontender, no guarding, rebound or rigidity Abdomen moving with respiration Normoactive bowel sounds No hepatomegaly, No splenomegaly No palpable mass Multiple abdominal wall hernias noted Skin: Normal temperature, tone, texture, turgor No induration No subcutaneous nodules No rash, lesions No ulcers Extremities: No digital cyanosis No clubbing Pedal pulses intact and symmetrical Radial pulses intact and symmetrical No calf tenderness Psychiatric: Alert and oriented to person, place and time Appropriate affect fair judgment Neuro Muscles Strength 5/5 in all 4 extremities Sensation to light touch grossly present throughout Cranial nerves II-XII grossly intact No focal sensory deficits Lymphatics: no palpable cervical or supraclavicular , or inguinal lymph nodes Results CBC & Chem 7: 04/11/18 17:07 04/11/18 17:07 Labs: Abnormal Lab Results - Last 24 Hours (Table) 04/11/18 04/11/18 04/11/18 Range/Units 17:07 17:07 19:15 WBC 16.9 H (3.8-10.6) k/uL Hct 47.7 H (34.0-46.0) % MCV 102.8 H (80.0-100.0) fL RDW 16.6 H (11.5-15.5) % Neutrophils # 13.9 H (1.3-7.7) k/uL Chloride 112 H (98-107) mmol/L BUN 25 H (7-17) mg/dL Glucose 172 H (74-99) mg/dL Calcium 10.6 H (8.4-10.2) mg/dL Albumin 3.4 L (3.5-5.0) g/dL Urine Appearance Cloudy H (Clear) Urine Protein 1+ H (Negative) Ur Leukocyte Esterase Moderate H (Negative) Urine WBC 29 H (0-5) /hpf Hyaline Casts 44 H (0-2) /lpf Urine Mucus Many H (None) /hpf Assessment and Plan Assessment: 72-year-old female with history of hypertension diabetes, COPD on home oxygen, admitted as inpatientwith anticipated length of stay more than 48 hours, due to sepsis secondary to UTI, patient has recent hospitalization for sepsis secondary to pneumonia and sepsis secondary to UTI requiring ICU admission and pressors. Plan: Sepsis secondary to UTI (fever, tachycardia, leukocytosis) Acute pyelonephritis Patient started on Zosyn, due to patient having recent urine culture positive for Pseudomonas Aggressive IV fluid hydration Monitor vital signs Follow-up labs Follow-up urine, blood cultures Admission to [facility] due to recent hospitalization with sepsis and shock requiring IV pressors and admission to the ICU around less than a month ago Tylenol when necessary for fevers Diabetes mellitus On home insulin Continue home dosing of insulin Lantus adjusted down to 50 units normalization patient claimed that she takes 70 units Insulin sliding scale COPD without acute exacerbation, on home oxygen Chronic hypoxic respiratory failure on home oxygen of 2 L Continue with inhalers as needed Symbicort Submental oxygen Morbid obesity Patient counseled regarding lifestyle modification Macrocytosis without anemia Outpatient follow-up Diabetic diet as tolerated History of restless leg syndrome Continue home meds Hypothyroidism currently stable Continue levothyroxine Preformed a thorough record review from recent hospitalization as summarized in HPI Surrogate decision-maker: Patient CODE STATUS: Full code DVT prophylaxis: Patient is on Xarelto Discussed with: Patient, ER, RN Anticipated discharge: 48-[address]: Pending clinical course A total of 65 minutes was spent on the care of this complex patient more than 50 % of the time was spent in counseling and care coordination.
[2018-04-11] MEDS ORDERED: INSULIN DETEMIR 100 UNIT/ML 10 ML VIAL SQ SCH (23:00)
[2018-04-11 23:05] LABS: Glucose,Whole Blood 123 mg/dL (75-99)
[2018-04-11 23:06] VITALS: BMI 46.7
[2018-04-12] MEDS: HYDROcodone/APAP 10-325MG 1 EACH TAB PO PRN ×3 (04:08→20:44)
[2018-04-12 06:01] LABS: Glucose,Whole Blood 93 mg/dL (75-99)
[2018-04-12] MEDS: LEVOTHYROXINE 100 MCG TAB PO SCH (06:10)
[2018-04-12] MEDS: PANTOPRAZOLE 40 MG TABLET PO SCH (06:10)
[2018-04-12] MEDS: SODIUM CHLORIDE 0.9% 1,000 ML IV SCH (06:11)
[2018-04-12] MEDS: INSULIN ASPART 100 UNIT/ML 1 ML 10 ML VIAL SQ SCH ×4 (06:13→21:10)
[2018-04-12 06:22] LABS: Anisocytosis Slight; HCT 45.7 % (34.0-46.0); HGB 13.9 gm/dL (11.4-16.0); Hypochromasia Slight; MCH 31.5 pg (25.0-35.0); MCHC 30.4 g/dL (31.0-37.0); MCV 103.9 fL (80.0-100.0); Macrocytosis Moderate; Mean Platelet Volume 8.2; Platelet Count 235 k/uL (150-450); RDW 16.5 % (11.5-15.5)
[2018-04-12 06:27] LABS: Albumin 2.6 g/dL (3.5-5.0); Calcium 9.8 mg/dL (8.4-10.2); Potassium 3.9 mmol/L (3.5-5.1); Total Bilirubin 0.6 mg/dL (0.2-1.3); Total Protein 5.6 g/dL (6.3-8.2)
[2018-04-12 08:00] LABS: Eosinophils # (M) 0.28 k/uL (0-0.7); Lymphocytes # (M) 1.82 k/uL (1.0-4.8); Neutrophils % (M) 80 %; Nucleated Red Blood Cells 0 /100 WBC (0-0); Total Cells Counted 100
[2018-04-12 08:02] LABS: Howell-Jolly Bodies Present
--- NOTE | 2018-04-12 08:59 | XR ---
EXAMINATION TYPE: XR chest 2V DATE OF EXAM: 04/12/2018 COMPARISON: 04/11/2018 TECHNIQUE: PA and lateral views submitted. HISTORY: Cough FINDINGS: Right upper lobe consolidation noted. Mediastinum is prominent underlying mass or adenopathy within t he differential diagnosis. Aortic aneurysm would also be a consideration. Small left effusion is seen and there is a coarsened interstitium. Arthropathy of the shoulders with diffuse osteopenia. Atheros clerotic change aorta. Surgical clips in the left upper quadrant. IMPRESSION: 1. Right upper lobe consolidation correlate for pneumonia. 2. Widened mediastinum could be on the basis of adenopathy or aortic aneurysm recommend CT chest. 3. Correlate for underlying COPD. 4. There is subluxation or partial dislocation of the right humeral head correlate clinically.
[2018-04-12] MEDS ORDERED: Mirabegron [Myrbetriq] 50 MG PO SCH (09:00)
[2018-04-12] MEDS: SYMBICORT 80-4.5 MCG INHALER INHALATION PRN (09:23)
[2018-04-12] MEDS: ALBUTEROL NEBULIZED 2.5 MG/3 ML INHALATION PRN ×2 (09:23→20:24)
[2018-04-12] MEDS: PREGABALIN 100 MG CAP PO SCH ×2 (09:40→20:44)
[2018-04-12] MEDS: ALLOPURINOL 100 MG TAB PO SCH (09:40)
[2018-04-12] MEDS: DULoxetine HCL 30 MG CAPSULE.DR PO SCH ×2 (09:40→17:41)
[2018-04-12] MEDS: METOPROLOL TARTRATE 25 MG TAB PO SCH ×2 (09:41→18:22)
[2018-04-12] MEDS: COLLAGENASE 250 UNIT/GM OINTMENT 30 GM TUBE TOPICAL SCH (09:42)
[2018-04-12] MEDS: DICLOFENAC SODIUM GEL 100 GM TUBE TOPICAL SCH ×3 (09:42→20:45)
[2018-04-12] MEDS: NYSTATIN 100,000 UNIT/GM POWD 15 GM TOPICAL SCH ×2 (09:44→21:14)
[2018-04-12] MEDS: SENNOSIDES-DOCUSATE SODIUM 1 EACH TAB PO SCH (10:01)
[2018-04-12] MEDS: SODIUM CHLORIDE 0.45% 1,000 ML IV SCH ×3 (10:02→23:59)
[2018-04-12 11:27] LABS: Glucose,Whole Blood 122 mg/dL (75-99)
[2018-04-12] MEDS: PIPERACILLIN-TAZOBACTAM 3.375 GM in SODIUM CHLORIDE 0.9% 100 ML IVPB SCH ×3 (11:27→23:24)
[2018-04-12] MEDS: BARIUM SULFATE 450 ML ORAL.SUSP BOTTLE PO PRN ×2 (11:28→14:45)
[2018-04-12 14:17] LABS: Hemoglobin A1C 7.8 % (4.0-6.0)
[2018-04-12] MEDS ORDERED: POLYETHYLENE GLYCOL 3350 17 GM POWD.PACK PO PRN (14:36)
[2018-04-12] MEDS ORDERED: clonazePAM 0.5 MG TAB PO PRN (14:36)
[2018-04-12] MEDS ORDERED: CYCLOBENZAPRINE 5 MG TAB PO PRN (14:36)
--- NOTE | 2018-04-12 14:37 | P.PN ---
Subjective Progress Note Date: 04/12/18 Principal diagnosis: Flank pain Patient is a 72-year-old female with a past medical history of recurring urinary tract infections, diabetes mellitus type 2, splenectomy, and hypertension who presented to the emergency department with complaints of right- sided flank pain and dysuria. In the ER she was tachycardic at 105 and she spike a fever of 100.7 approximately 30 minutes after initial vitals. She did become slightly hypotensive with blood pressure of 92/55. Initial laboratory analysis showed a white blood cell count of 16, urine appeared to have a urinary tract infection. She was started on Levaquin and cefepime. Arrangements were made for admission. She was given fluids. Blood cultures were obtained. He of Pseudomonas and Morganella in her urine and antibiotics were transitioned to Zosyn. Chest x-ray showed possible pneumonia however patient did not demonstrate any symptoms of pneumonia. Patient seen and examined at bedside. She states that she is having bilateral flank pain. She's been having some urinary urgency with incontinence. She's been struggling with recurrent urinary tract infections for 6 months. She reports recently completing antibiotics and being discharged from [facility] after a UTI. She denies any nausea, vomiting, or diarrhea. She denies any chest pain , shortness of breath, cough, or cold-like symptoms. She states she has been struggling with urinary tract infections for quite some time. She states that she was told she has multiple abdominal wall hernias. Objective - Vital Signs Vital signs: Vital Signs Temp 98.2 F 04/12/18 08:00 Pulse 98 04/12/18 11:40 Resp 18 04/12/18 11:40 BP 129/58 04/12/18 08:00 Pulse Ox 93 L 04/12/18 08:00 Intake & Output 04/11/18 04/12/18 04/12/18 18:59 06:59 18:59 Intake Total 150 180 Output Total 200 Balance -50 180 Weight 111.584 kg 108.5 kg Intake: Intake, IV Titration 150 Amount Sodium Chloride 0.9% 1, 150 000 ml @ 150 mls/hr IV . Q6H40M [place] Rx#:[id number] Oral 180 Output: Urine 200 Other: # Voids 1 - Exam General: Ill appearing, mild distress, appears at stated age Derm: warm, dry Head: atraumatic, normocephalic, symmetric Eyes: EOMI, no lid lag, anicteric sclera Mouth: no lip lesion, mucus membranes moist Cardiovascular: S1S2 reg, no murmur, positive posterior tibial pulse bilateral, Lungs: Decreased breath sounds bilateral, no rhonchi, no rales , no accessory muscle use Abdominal: soft, nontender to palpation, no guarding, no appreciable organomegaly Ext: no gross muscle atrophy, no edema, no contractures Neuro: CN II-XI grossly intact, no focal neuro deficits Psych: Alert, oriented, appropriate affect - Labs CBC & Chem 7: 04/12/18 05:45 04/12/18 05:45 Labs: Abnormal Lab Results - Last 24 Hours (Table) 04/11/18 04/11/18 04/11/18 Range/Units 17:07 17:07 19:15 WBC 16.9 H (3.8-10.6) k/uL Hct 47.7 H (34.0-46.0) % MCV 102.8 H (80.0-100.0) fL MCHC (31.0-37.0) g/dL RDW 16.6 H (11.5-15.5) % Neutrophils # 13.9 H (1.3-7.7) k/uL Neutrophils # (Manual) (1.3-7.7) k/uL Chloride 112 H (98-107) mmol/L Carbon Dioxide (22-30) mmol/L BUN 25 H (7-17) mg/dL Glucose 172 H (74-99) mg/dL POC Glucose (mg/dL) (75-99) mg/dL Calcium 10.6 H (8.4-10.2) mg/dL Total Protein (6.3-8.2) g/dL Albumin 3.4 L (3.5-5.0) g/dL Urine Appearance Cloudy H (Clear) Urine Protein 1+ H (Negative) Ur Leukocyte Esterase Moderate H (Negative) Urine WBC 29 H (0-5) /hpf Hyaline Casts 44 H (0-2) /lpf Urine Mucus Many H (None) /hpf 04/11/18 04/12/18 04/12/18 Range/Units 23:03 05:45 05:45 WBC 14.0 H (3.8-10.6) k/uL Hct (34.0-46.0) % MCV 103.9 H (80.0-100.0) fL MCHC 30.4 L (31.0-37.0) g/dL RDW 16.5 H (11.5-15.5) % Neutrophils # (1.3-7.7) k/uL Neutrophils # (Manual) 11.20 H (1.3-7.7) k/uL Chloride 116 H (98-107) mmol/L Carbon Dioxide 21 L (22-30) mmol/L BUN 20 H (7-17) mg/dL Glucose (74-99) mg/dL POC Glucose (mg/dL) 123 H (75-99) mg/dL Calcium (8.4-10.2) mg/dL Total Protein 5.6 L (6.3-8.2) g/dL Albumin 2.6 L (3.5-5.0) g/dL Urine Appearance (Clear) Urine Protein (Negative) Ur Leukocyte Esterase (Negative) Urine WBC (0-5) /hpf Hyaline Casts (0-2) /lpf Urine Mucus (None) /hpf 04/12/18 Range/Units 11:18 WBC (3.8-10.6) k/uL Hct (34.0-46.0) % MCV (80.0-100.0) fL MCHC (31.0-37.0) g/dL RDW (11.5-15.5) % Neutrophils # (1.3-7.7) k/uL Neutrophils # (Manual) (1.3-7.7) k/uL Chloride (98-107) mmol/L Carbon Dioxide (22-30) mmol/L BUN (7-17) mg/dL Glucose (74-99) mg/dL POC Glucose (mg/dL) 122 H (75-99) mg/dL Calcium (8.4-10.2) mg/dL Total Protein (6.3-8.2) g/dL Albumin (3.5-5.0) g/dL Urine Appearance (Clear) Urine Protein (Negative) Ur Leukocyte Esterase (Negative) Urine WBC (0-5) /hpf Hyaline Casts (0-2) /lpf Urine Mucus (None) /hpf Microbiology - Last 24 Hours (Table) 04/11/18 19:15 Urine Culture - Preliminary Urine,Catheterized Assessment and Plan Assessment: Urinary tract infection with sepsis, failed outpatient treatment, history of splenectomy -Continue with Zosyn as patient has a history of pseudomonal infection -Await ID recommendations -We'll check CT abdomen and pelvis with oral contrast as patient had possible air in the bladder from [place] catheter versus possible fistula on last CT -We'll also assess for possible continued renal stones as we have been unable to clear her infection -Check postvoid residuals -Await urine and blood cultures -If evidence of nephrolithiasis will need to consider seeing Dr. Mariee as we have been unable to clear her UTIs. -IV fluids -Discontinue Myrbetriq as it causes urinary retention and can lead to recurrent urinary tract infection Diabetes mellitus type 2 with neuropathy -Continue home Januvia -Sliding-scale insulin -Hemoglobin A1c 7.8 -Lyrica Morbid obesity with BMI 46.7 -Outpatient structured weight loss Hypertension -Continue with metoprolol COPD with chronic hypoxic respiratory failure -Continue with supplemental oxygen -As needed bronchodilators -Symbicort Macrocytosis -Outpatient workup Restless leg syndrome -Continue with Requip Chronic conditions: Dyslipidemia Rheumatoid arthritis Hypothyroidism DVT prophylaxis: Xarelto Discussed with: Patient, nursing Anticipated discharge: 3-[address]: home A total of 45 minutes was spent on the care of this complex patient more than 50 % of the time was spent in counseling and care coordination.
--- NOTE | 2018-04-12 15:49 | CT ---
EXAMINATION TYPE: CT abdomen pelvis wo con DATE OF EXAM: 04/12/2018 COMPARISON: 03/10/2018 INDICATION: Abdominal pain, possible fistula, kidney stones. DLP: 1172.4 mGycm, Automated exposure control for dose reduction was used. CONTRAST: 0 mL of Isovue 300. Study performed with Oral Contrast TECHNIQUE: Axial images were obtained from above the diaphragm to the pubic rami in the axial plane a t 5 mm thick sections. Reconstructed images are reviewed on the computer in the coronal plane. FINDINGS: Limited CT sections are obtained the lung bases. Some mild compressive atelectasis may be within the dependent portions of the lung bases bilaterally. Small right pleural effusion is present. Vascular calcifications within the aorta. Reflux into the distal esophagus is evident.. CT ABDOMEN: Anterior abdominal wall hernia containing a loop of the stomach is present in the epigast calvin region. No obstruction is evident. There is an anterior abdominal wall hernia containing multiple loops of small bowel loops and colon without evidence of obstruction. This is widely open with an op ening of 14 cm. Just below this is a second anterior abdominal wall hernia in the anterior right kenia pelvis opening of 10.8 cm. This contains nonobstructed loops of small bowel. These were present previ ously. Liver: Normal Spleen: Absent. Pancreas: Slightly atrophic. Adrenal glands: The adrenal glands are normal. Gallbladder: Surgically absent Kidneys: No masses are evident. There is a inferior pole left renal cyst measuring 6 Hounsfield units . There is an inferior pole right renal cyst measuring 8.2 cm and 21 Hounsfield units. No hydronephro sis is evident. There may be a small exophytic cyst at the inferior pole right kidney measuring 1.7 c m in the posterior medial region. Aorta: Vascular calcification is within the aorta. Inferior vena cava: Normal. CT PELVIS: Loops of bowel within the abdomen and pelvis are normal. There are loops of bowel which are incom pletely distended or lack oral contrast limiting their evaluation. No obstruction is evident. Appendix: Not identified. Urinary bladder: Normal. Genitourinary structures: Uterus appears unremarkable. Adnexal regions normal. Osseous structures: No suspicious lytic or sclerotic lesions. Facet hypertrophy is in the lower lumba r spine. IMPRESSIONS: 1. Stable multiple widely patent anterior abdominal wall hernias containing stomach, small bowel loo ps and colon, and small bowel loops. 2. Bilateral renal cysts. 3. Suspected compressive atelectasis posterior right lung base. 4. Gastroesophageal reflux. 5. Small right pleural effusion.
[2018-04-12] MEDS: ASPIRIN 81 MG PO SCH (17:40)
[2018-04-12] MEDS: RIVAROXABAN 20 MG TAB PO SCH (17:41)
[2018-04-12 17:42] LABS: Glucose,Whole Blood 57 mg/dL (75-99)
[2018-04-12 18:00] LABS: Glucose,Whole Blood 55 mg/dL (75-99)
[2018-04-12] MEDS: ATORVASTATIN 40 MG TAB PO SCH (18:22)
[2018-04-12 18:25] LABS: Glucose,Whole Blood 58 mg/dL (75-99)
[2018-04-12 18:40] LABS: Glucose,Whole Blood 63 mg/dL (75-99)
[2018-04-12 18:57] LABS: Glucose,Whole Blood 83 mg/dL (75-99)
[2018-04-12 20:12] LABS: Glucose,Whole Blood 127 mg/dL (75-99)
--- NOTE | 2018-04-12 22:41 | P.CONS ---
History of Present Illness - Reason for Consult Consult date: 04/12/18 Recurrent urinary tract infection Requesting physician: Casi Hdz - Chief Complaint Fever and right flank pain x 3 days - History of Present Illness Patient is a 72-year-old female was recently admitted at [facility] patient at that time was treated for hypertension acute renal injury and subsequently was discharged to the [facility] for rehabilitation while the patient was at [facility] she did have a UA and culture done on 2017 which did grow multidrug-resistant Morganella and pseudomonas aeruginosa however apparently the patient was treated with oral Augmentin patient subsequent has been discharged from [facility] to home the patient has been home for the last 3 days patient has been complaining of pain in her right flank area pain is more of a dull aching pain intensity is about 5-7 out of 10 some radiation to the groin area patient also has some burning and frequency of urine but no hematuria also started having a fever with rigors and chills with this symptom had the patient was brought into the [facility] ER with the patient has been evaluated by the ER physician on arrival to the ER the patient did have a low-grade fever of 100.7 subsequently 99.9 patient did have elevated white count 16.9 UA has been positive with moderate leukocyte Estrace and 29 WBC , influenza serology was negative initially treated with cefepime and Levaquin that has been switched to Zosyn, patient also have a CT of abdominal pelvis completed which did show some cysts in the kidneys but no renal stones and had no other intra-abdominal pathology lung bases with some atelectasis but no pneumonia infectious was consulted for further recommendation regarding antibiotic therapy especially for her recurrent UTIs. Review of Systems CONSTITUTIONAL: Positive for weakness. Fever EYES: No complaint. ENT:No complaint. RESPIRATORY: No complaint. CARDIOVASCULAR: No complaint. GENITOURINARY: as per HPI. GASTROINTESTINAL: No complaint. MUSCULOSKELETAL: No complaint. INTEGUMENTARY: No complaint. PSYCHOLOGICAL: No complaint. ENDOCRINE: No complaint. NEUROLOGIC: No complaint. Past Medical History Past Medical History: Cancer, COPD, Diabetes Mellitus, Deep Vein Thrombosis (DVT ), Hyperlipidemia, Hypertension, Pneumonia, Pulmonary Embolus (PE), Rheumatoid Arthritis (RA), Skin Disorder, Thyroid Disorder Additional Past Medical History / Comment(s): Morbid obesity, COPD, diabetes mellitus, remote history of DVT and pulmonary embolism, hypertension, hyperlipidemia, hypothyroidism, rheumatoid arthritis, history of fracture of the right lower extremity requiring surgery, right lower extremity wound that has healed, previous history of Hodgkin's lymphoma treated with a splenectomy and subsequent radiation therapy in 1993, chronic hypoxic respiratory failure patient on oxygen at 2 L overnight, 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 Past Anesthesia/Blood Transfusion Reactions: No Reported Reaction Past Psychological History: Depression Smoking Status: Former smoker Past Alcohol Use History: None Reported Past Drug Use History: None Reported - Past Family History Father Family Medical History: No Reported History Additional Family Medical History / Comment(s): Father was healthy and lived to be 88yrs old. Mother Family Medical History: No Reported History Additional Family Medical History / Comment(s): Pt states mother was healthy and lived to be 90yrs old. Son(s) Family Medical History: No Reported History Additional Family Medical History / Comment(s): She relates that her parents of old age her mother was about 90 father was 88, without sniffing and medical troubles. She does relate that her son committed suicide but her daughter is quite healthy. Medications and Allergies Home Medications Medication Instructions Recorded Confirmed Type sitaGLIPtin [Januvia] 100 mg PO DAILY@0800 10/09/13 04/11/18 History DULoxetine HCL [Cymbalta] 30 mg PO BID@0800,1700 11/27/15 04/11/18 History rOPINIRole HCL [Requip] 3 mg PO HS@2100 11/27/15 04/11/18 History Rivaroxaban [Xarelto] 20 mg PO DAILY@1700 05/12/16 04/11/18 History Allopurinol [Zyloprim] 100 mg PO DAILY@0800 04/18/17 11/07/18 History Levothyroxine Sodium [Synthroid] 100 mcg PO DAILY 09/20/16 04/11/18 History Omeprazole [PriLOSEC] 20 mg PO DAILY@0700 09/20/16 04/11/18 History Atorvastatin [Lipitor] 40 mg PO DAILY@1700 05/02/17 04/11/18 History Acetaminophen Tab [Tylenol] 650 mg PO Q6H PRN 08/03/17 04/11/18 History Amino Acids/Protein Hydrolys 30 ml PO DAILY@1700 08/03/17 04/11/18 History [Pro-Stat Supplement] Budesonide/Formoterol Fumarate 2 puff INHALATION RT-BID PRN 08/03/17 04/11/18 History [Symbicort 80-4.5 Mcg Inhaler] Cholecalciferol (Vitamin D3) 4,000 unit PO DAILY@1700 08/03/17 04/11/18 History [Vitamin D3] Cyclobenzaprine [Flexeril] 5 mg PO TID PRN 08/03/17 04/11/18 History Ferrous Sulfate [Feosol] 325 mg PO AC-SUPPER 08/03/17 04/11/18 History Glucerna Shake 1 can PO HS 08/03/17 04/11/18 History L.acidoph,Paracasei, B.lactis 1 cap PO DAILY 08/03/17 04/11/18 History [Probiotic] Polyethylene Glycol 3350 [Miralax] 17 gm PO DAILY PRN 08/03/17 04/11/18 History Albuterol Inhaler [Ventolin Hfa 2 puff INHALATION RT-Q4H PRN 09/07/17 04/11/18 History Inhaler] Mirabegron [Myrbetriq] 50 mg PO DAILY 09/07/17 04/11/18 History Ondansetron [Zofran] 4 mg PO Q8HR PRN 09/07/17 04/11/18 History Sennosides/Docusate Sodium [Shayy 2 tab PO DAILY 09/07/17 04/11/18 History Colace] Aspirin EC [Ecotrin Low Dose] 81 mg PO DAILY@1700 09/13/17 04/11/18 History Miconazole Nitrate [Lotrimin AF 1 applic TOPICAL BID 09/13/17 04/11/18 History Powder] Cranberry 425 Cap 425 mg PO AC-SUPPER 11/24/17 04/11/18 History Cranberry Fruit Concentrate [Azo 500 mg PO TID PRN 11/24/17 04/11/18 History Cranberry] Diclofenac Sodium [Voltaren Gel] 2 gram TOPICAL TID 11/24/17 04/11/18 History Metoprolol Tartrate [Lopressor] 12.5 mg PO BID@0800,1700 11/24/17 04/11/18 History Collagenase [Santyl] 1 applic TOPICAL DAILY 02/20/18 04/11/18 History HYDROcodone/APAP 10-325MG [Lampe 1 tab PO Q4HR PRN #14 tab 03/13/18 04/11/18 Rx 10-325] Pregabalin [Lyrica] 200 mg PO BID@0800,2100 #6 capsule 03/13/18 04/11/18 Rx clonazePAM [KlonoPIN] 0.25 mg PO Q12H PRN #6 tab 03/13/18 04/11/18 Rx Allergies Allergy/AdvReac Type Severity Reaction Status Date / Time No Known Drug Allergies Allergy No known Verified 04/11/18 17:06 allergy Physical Exam Vitals: Vital Signs Temp Pulse Pulse Resp BP BP BP 04/12/18 09:34 96 04/12/18 09:24 92 04/12/18 03:07 98.1 F 89 17 100/56 04/12/18 00:00 97.8 F 96 17 92/56 04/11/18 22:40 99.9 F H 92 23 93/53 04/11/18 22:15 91 23 92/52 04/11/18 21:25 99.0 F 93 21 120/82 04/11/18 19:54 04/11/18 19:25 99.2 F 97 20 101/50 04/11/18 17:39 99 23 92/55 04/11/18 16:48 100.7 F H 04/11/18 16:16 97.6 F 105 H 18 101/66 Pulse Ox 04/12/18 09:34 04/12/18 09:24 04/12/18 03:07 94 L 04/12/18 00:00 91 L 04/11/18 22:40 95 04/11/18 22:15 95 04/11/18 21:25 95 04/11/18 19:54 91 L 04/11/18 19:25 94 L 04/11/18 17:39 95 04/11/18 16:48 04/11/18 16:16 94 L Intake and Output 04/11/18 04/12/18 04/12/18 22:59 06:59 14:59 Intake Total 150 180 Output Total 200 Balance -50 180 Intake: Intake, IV Titration 150 Amount Sodium Chloride 0.9% 1, 150 000 ml @ 150 mls/hr IV . Q6H40M [facility] Rx#:[id number] Oral 180 Output: Urine 200 Other: # Voids 1 Weight 108.5 kg 108.5 kg GENERAL DESCRIPTION: Elderly female lying in bed, no distress. No tachypnea or accessory muscle of respiration use. HEENT: Shows Pallor , no scleral icterus. Oral mucous membrane is dry. No pharyngeal erythema or thrush NECK: Trachea central, no thyromegaly. LUNGS: Unlabored breathing. Decreased breath sounds at the base, No wheeze or crackle. HEART: S1, S2, regular rate and rhythm. No loud murmur ABDOMEN: Soft, Right flank tenderness , no guarding or rigidity, no organomegaly EXTREMITIES: No edema of feet. SKIN: No rash, no masses palpable. NEUROLOGICAL: The patient is awake, alert, oriented x3, mood and affect normal Results CBC & Chem 7: 04/12/18 05:45 04/12/18 05:45 Labs: Abnormal Lab Results - Last 24 Hours (Table) 04/11/18 04/11/18 04/11/18 Range/Units 17:07 17:07 19:15 WBC 16.9 H (3.8-10.6) k/uL Hct 47.7 H (34.0-46.0) % MCV 102.8 H (80.0-100.0) fL MCHC (31.0-37.0) g/dL RDW 16.6 H (11.5-15.5) % Neutrophils # 13.9 H (1.3-7.7) k/uL Neutrophils # (Manual) (1.3-7.7) k/uL Chloride 112 H (98-107) mmol/L Carbon Dioxide (22-30) mmol/L BUN 25 H (7-17) mg/dL Glucose 172 H (74-99) mg/dL POC Glucose (mg/dL) (75-99) mg/dL Calcium 10.6 H (8.4-10.2) mg/dL Total Protein (6.3-8.2) g/dL Albumin 3.4 L (3.5-5.0) g/dL Urine Appearance Cloudy H (Clear) Urine Protein 1+ H (Negative) Ur Leukocyte Esterase Moderate H (Negative) Urine WBC 29 H (0-5) /hpf Hyaline Casts 44 H (0-2) /lpf Urine Mucus Many H (None) /hpf 04/11/18 04/12/18 04/12/18 Range/Units 23:03 05:45 05:45 WBC 14.0 H (3.8-10.6) k/uL Hct (34.0-46.0) % MCV 103.9 H (80.0-100.0) fL MCHC 30.4 L (31.0-37.0) g/dL RDW 16.5 H (11.5-15.5) % Neutrophils # (1.3-7.7) k/uL Neutrophils # (Manual) 11.20 H (1.3-7.7) k/uL Chloride 116 H (98-107) mmol/L Carbon Dioxide 21 L (22-30) mmol/L BUN 20 H (7-17) mg/dL Glucose (74-99) mg/dL POC Glucose (mg/dL) 123 H (75-99) mg/dL Calcium (8.4-10.2) mg/dL Total Protein 5.6 L (6.3-8.2) g/dL Albumin 2.6 L (3.5-5.0) g/dL Urine Appearance (Clear) Urine Protein (Negative) Ur Leukocyte Esterase (Negative) Urine WBC (0-5) /hpf Hyaline Casts (0-2) /lpf Urine Mucus (None) /hpf Microbiology - Last 24 Hours (Table) 04/11/18 19:15 Urine Culture - Preliminary Urine,Catheterized Assessment and Plan (1) Sepsis Current Visit: No Status: Acute Code(s): A41.9 - SEPSIS, UNSPECIFIED ORGANISM SNOMED Code(s): 97266516 (2) Urinary tract infection Current Visit: No Status: Acute Code(s): N39.0 - URINARY TRACT INFECTION, SITE NOT SPECIFIED SNOMED Code(s): 52300425 Plan: 1-patient admitted hospital with sepsis and the patient did have a fever of 100.7 did have tachycardia elevated white count patient predominant symptom has been right flank pain with urinary symptoms and significantly positive UA likely representing urinary source for this episode of sepsis and infecting organism could be more likely the Pseudomonas, given the left that she recently growing her urine culture on 03/26/2018. 2-with no evidence of any renal stone on the CT the more likely risk factor for her recurrent UTI could be the postmenopausal status or possible urinary retention and incomplete emptying of the bladder 3-Zosyn 3.375 g every 8 while waiting for the urine culture finalized. 4-we will advise intravaginal estrogen cream on discharge to help decrease the incidence of recurrent UTI from her postmenopausal status We will follow on her clinical condition and culture to further adjust medication if needed Time with Patient: Greater than 30
[2018-04-13] MEDS: SODIUM CHLORIDE 0.45% 1,000 ML IV SCH (01:17)
[2018-04-13 03:05] LABS: Glucose,Whole Blood 115 mg/dL (75-99)
[2018-04-13] MEDS: LEVOTHYROXINE 100 MCG TAB PO SCH (06:08)
[2018-04-13] MEDS: HYDROcodone/APAP 10-325MG 1 EACH TAB PO PRN ×3 (06:08→21:10)
[2018-04-13 06:57] LABS: Glucose,Whole Blood 115 mg/dL (75-99)
[2018-04-13] MEDS: INSULIN ASPART 100 UNIT/ML 1 ML 10 ML VIAL SQ SCH ×4 (07:19→21:10)
[2018-04-13 07:35] LABS: Anisocytosis Slight; HCT 43.8 % (34.0-46.0); HGB 13.5 gm/dL (11.4-16.0); Hypochromasia Slight; MCH 31.7 pg (25.0-35.0); MCHC 30.9 g/dL (31.0-37.0); MCV 102.6 fL (80.0-100.0); Macrocytosis Moderate; Mean Platelet Volume 8.4; Platelet Count 231 k/uL (150-450); RBC 4.27 m/uL (3.80-5.40); RDW 16.5 % (11.5-15.5); WBC 12.8 k/uL (3.8-10.6)
[2018-04-13 07:52] LABS: ALT 23 U/L (9-52); AST 29 U/L (14-36); Albumin 2.8 g/dL (3.5-5.0); Alkaline Phosphatase 110 U/L (38-126); Anion Gap 7 mmol/L; Blood Urea Nitrogen 11 mg/dL (7-17); Calcium 10.1 mg/dL (8.4-10.2); Carbon Dioxide 22 mmol/L (22-30); Chloride 110 mmol/L (98-107); Glucose 121 mg/dL (74-99); Magnesium 1.9 mg/dL (1.6-2.3); Potassium 4.1 mmol/L (3.5-5.1); Sodium 139 mmol/L (137-145); Total Bilirubin 0.8 mg/dL (0.2-1.3); Total Protein 5.8 g/dL (6.3-8.2)
[2018-04-13] MEDS: PIPERACILLIN-TAZOBACTAM 3.375 GM in SODIUM CHLORIDE 0.9% 100 ML IVPB SCH ×2 (08:37→17:01)
[2018-04-13] MEDS: DICLOFENAC SODIUM GEL 100 GM TUBE TOPICAL SCH ×3 (08:38→21:09)
[2018-04-13] MEDS: COLLAGENASE 250 UNIT/GM OINTMENT 30 GM TUBE TOPICAL SCH ×2 (08:39→08:56)
[2018-04-13] MEDS: PREGABALIN 100 MG CAP PO SCH ×2 (08:40→21:10)
[2018-04-13] MEDS: METOPROLOL TARTRATE 25 MG TAB PO SCH ×2 (08:40→17:46)
[2018-04-13] MEDS: DULoxetine HCL 30 MG CAPSULE.DR PO SCH ×2 (08:40→17:46)
[2018-04-13] MEDS: ALLOPURINOL 100 MG TAB PO SCH (08:41)
[2018-04-13] MEDS: PANTOPRAZOLE 40 MG TABLET PO SCH (08:41)
[2018-04-13] MEDS: LINAGLIPTIN 5 MG TABLET PO SCH (08:41)
[2018-04-13] MEDS: NYSTATIN 100,000 UNIT/GM POWD 15 GM TOPICAL SCH ×2 (08:43→21:11)
[2018-04-13] MEDS: SENNOSIDES-DOCUSATE SODIUM 1 EACH TAB PO SCH (08:43)
--- NOTE | 2018-04-13 09:01 | XR ---
EXAMINATION TYPE: XR chest 1V portable DATE OF EXAM: 04/13/2018 COMPARISON: 04/12/2018 HISTORY: Pneumonia TECHNIQUE: Single frontal view of the chest is obtained. FINDINGS: Persistent right upper lobe infiltrate. Subsegmental changes at the left lung base with sm all effusion. Heart is enlarged and there is a coarsened interstitium and prominent mediastinum. No p neumothorax. Arthropathy of the shoulders. IMPRESSION: 1. Stable right upper lobe pneumonia 2. Prominent mediastinum correlate for adenopathy. 3. Stable left lower lobe atelectasis or infiltrate with small effusion. 4. Interstitial changes are stable correlate for interstitial pneumonitis or congestion.
[2018-04-13 09:24] VITALS: RESP 16
[2018-04-13] MEDS: SYMBICORT 80-4.5 MCG INHALER INHALATION PRN (09:44)
[2018-04-13] MEDS: ALBUTEROL NEBULIZED 2.5 MG/3 ML INHALATION PRN (09:45)
[2018-04-13 11:36] LABS: Glucose,Whole Blood 161 mg/dL (75-99)
--- NOTE | 2018-04-13 13:15 | P.PN ---
Subjective Progress Note Date: 04/13/18 Principal diagnosis: Recurrent urinary tract infection and possible right-sided pyelonephritis The patient is afebrile today she is breathing slightly comfortably he did have some cough but not bringing up any sputum does have any nausea and vomiting mild pain in her flank area no worsening no diarrhea no burning or frequency of urine Objective - Vital Signs Vital signs: Vital Signs Temp 98.1 F 04/13/18 12:19 Pulse 96 04/13/18 12:19 Resp 16 04/13/18 12:19 BP 108/74 04/13/18 12:19 Pulse Ox 94 L 04/13/18 12:19 Intake & Output 04/12/18 04/13/18 04/13/18 18:59 06:59 18:59 Intake Total 300 1920 Output Total 100 800 Balance 300 1820 -800 Weight 108.5 kg Intake: Intake, IV Titration 1600 Amount Piperacillin-Tazobactam 3 100 .375 gm In Sodium Chloride 0.9% 100 ml @ 25 mls/hr IVPB Q8HR [facility] Rx# :[id number] Sodium Chloride 0.45% 1, 1500 000 ml @ 125 mls/hr IV . Q8H [facility] Rx#:[id number] Oral 300 320 Output: Urine 100 800 Other: Voiding Method Bedside Commode # Voids 1 1 - Exam GENERAL DESCRIPTION:[ Patient is awake and alert in no distress] HEENT: [Oral mucosa is dry and no pharyngeal erythema] EYES : [No pallor or scleral icterus] RESPIRATORY SYSTEM: [Unlabored breathing decreased breath sound at the bases] CARDIA VASCULAR SYSTEM: [S1-S2 regular rate and rhythm no murmur] GI: [Abdominal soft there's no tenderness no organomegaly] EXTREMITIES: [No edema feet] - Labs CBC & Chem 7: 04/13/18 06:54 04/13/18 06:54 Labs: Abnormal Lab Results - Last 24 Hours (Table) 04/12/18 04/12/18 04/12/18 Range/Units 05:45 17:37 17:59 WBC (3.8-10.6) k/uL MCV (80.0-100.0) fL MCHC (31.0-37.0) g/dL RDW (11.5-15.5) % Chloride (98-107) mmol/L Glucose (74-99) mg/dL POC Glucose (mg/dL) 57 L 55 L (75-99) mg/dL Hemoglobin A1c 7.8 H (4.0-6.0) % Total Protein (6.3-8.2) g/dL Albumin (3.5-5.0) g/dL 04/12/18 04/12/18 04/12/18 Range/Units 18:16 18:38 20:11 WBC (3.8-10.6) k/uL MCV (80.0-100.0) fL MCHC (31.0-37.0) g/dL RDW (11.5-15.5) % Chloride (98-107) mmol/L Glucose (74-99) mg/dL POC Glucose (mg/dL) 58 L 63 L 127 H (75-99) mg/dL Hemoglobin A1c (4.0-6.0) % Total Protein (6.3-8.2) g/dL Albumin (3.5-5.0) g/dL 04/13/18 04/13/18 04/13/18 Range/Units 03:03 06:54 06:54 WBC 12.8 H (3.8-10.6) k/uL MCV 102.6 H (80.0-100.0) fL MCHC 30.9 L (31.0-37.0) g/dL RDW 16.5 H (11.5-15.5) % Chloride 110 H (98-107) mmol/L Glucose 121 H (74-99) mg/dL POC Glucose (mg/dL) 115 H (75-99) mg/dL Hemoglobin A1c (4.0-6.0) % Total Protein 5.8 L (6.3-8.2) g/dL Albumin 2.8 L (3.5-5.0) g/dL 04/13/18 04/13/18 Range/Units 06:56 11:35 WBC (3.8-10.6) k/uL MCV (80.0-100.0) fL MCHC (31.0-37.0) g/dL RDW (11.5-15.5) % Chloride (98-107) mmol/L Glucose (74-99) mg/dL POC Glucose (mg/dL) 115 H 161 H (75-99) mg/dL Hemoglobin A1c (4.0-6.0) % Total Protein (6.3-8.2) g/dL Albumin (3.5-5.0) g/dL Microbiology - Last 24 Hours (Table) 04/11/18 19:15 Urine Culture - Final Urine,Catheterized 04/11/18 17:07 Blood Culture - Preliminary Blood No Growth after 24 hours Assessment and Plan (1) Sepsis Current Visit: No Status: Acute Code(s): A41.9 - SEPSIS, UNSPECIFIED ORGANISM SNOMED Code(s): 15244234 (2) Urinary tract infection Current Visit: No Status: Acute Code(s): N39.0 - URINARY TRACT INFECTION, SITE NOT SPECIFIED SNOMED Code(s): 87155937 (3) Pneumonia Current Visit: Yes Status: Acute Code(s): J18.9 - PNEUMONIA, UNSPECIFIED ORGANISM SNOMED Code(s): 118737257 Plan: 1- patient admitted hospital with a fever did have right flank pain with initial concern for right-sided pyelonephritis ,urine was positive however the culture has been negative so far , chest x-ray done this morning is still showing right upper lobe pneumonia patient did have mild cough but not bringing up any sputum, Sputum culture already requested patient fever responded to Zosyn that should be continued while waiting for the culture finalized Time with Patient: Less than 30
[2018-04-13] MEDS ORDERED: LEVOFLOXACIN 750MG-D5W PMX 750 MG in DEXTROSE/WATER 1 150ML.BAG IVPB SCH ×2 (14:00→20:00)
--- NOTE | 2018-04-13 14:45 | P.PN ---
Subjective Progress Note Date: 04/13/18 (Delayed charting patient seen at approximately 10: 30 AM) Principal diagnosis: Flank pain Patient is a 72-year-old female with a past medical history of recurring urinary tract infections, diabetes mellitus type 2, splenectomy, and hypertension who presented to the emergency department with complaints of right- sided flank pain and dysuria. In the ER she was tachycardic at 105 and she spike a fever of 100.7 approximately 30 minutes after initial vitals. She did become slightly hypotensive with blood pressure of 92/55. Initial laboratory analysis showed a white blood cell count of 16, urine appeared to have a urinary tract infection. She was started on Levaquin and cefepime. Arrangements were made for admission. She was given fluids. Blood cultures were obtained. Hx of Pseudomonas and Morganella in her urine and antibiotics were transitioned to Zosyn. Chest x-ray showed possible pneumonia. Though urinalysis was initially positive culture was negative. She underwent a CT abdomen and pelvis which just tremor demonstrated multiple hernias. Post void residuals were negative. Her my Bactrim was discontinued. On 04/13 her chest x- ray continued to show pneumonia. She was having some cough that was nonproductive. Patient seen and examined at bedside. Right flank pain is better, no nausea, vomiting, or diarrhea. Is having a cough that is nonproductive. Having some shortness of breath today and a slight wheeze today. No other complaints currently. Objective - Vital Signs Vital signs: Vital Signs Temp 98.1 F 04/13/18 12:19 Pulse 96 04/13/18 12:19 Resp 16 04/13/18 12:19 BP 108/74 04/13/18 12:19 Pulse Ox 94 L 04/13/18 12:19 Intake & Output 04/12/18 04/13/18 04/13/18 18:59 06:59 18:59 Intake Total 300 1920 Output Total 100 800 Balance 300 1820 -800 Weight 108.5 kg Intake: Intake, IV Titration 1600 Amount Piperacillin-Tazobactam 3 100 .375 gm In Sodium Chloride 0.9% 100 ml @ 25 mls/hr IVPB Q8HR [facility] Rx# :[id number] Sodium Chloride 0.45% 1, 1500 000 ml @ 125 mls/hr IV . Q8H [facility] Rx#:[id number] Oral 300 320 Output: Urine 100 800 Other: Voiding Method Bedside Commode # Voids 1 1 - Exam General: Ill appearing, no distress, appears at stated age Derm: warm, dry Head: atraumatic, normocephalic, symmetric Eyes: EOMI, no lid lag, anicteric sclera Mouth: no lip lesion, mucus membranes moist Cardiovascular: S1S2 reg, no murmur, positive posterior tibial pulse bilateral, Lungs: wheeze b/l, no rhonchi, no rales , no accessory muscle use Abdominal: soft, nontender to palpation, no guarding, no appreciable organomegaly Ext: no gross muscle atrophy, no edema, no contractures Neuro: CN II-XI grossly intact, no focal neuro deficits Psych: Alert, oriented, appropriate affect - Labs CBC & Chem 7: 04/13/18 06:54 04/13/18 06:54 Labs: Abnormal Lab Results - Last 24 Hours (Table) 04/12/18 04/12/18 04/12/18 Range/Units 17:37 17:59 18:16 WBC (3.8-10.6) k/uL MCV (80.0-100.0) fL MCHC (31.0-37.0) g/dL RDW (11.5-15.5) % Chloride (98-107) mmol/L Glucose (74-99) mg/dL POC Glucose (mg/dL) 57 L 55 L 58 L (75-99) mg/dL Total Protein (6.3-8.2) g/dL Albumin (3.5-5.0) g/dL 04/12/18 04/12/18 04/13/18 Range/Units 18:38 20:11 03:03 WBC (3.8-10.6) k/uL MCV (80.0-100.0) fL MCHC (31.0-37.0) g/dL RDW (11.5-15.5) % Chloride (98-107) mmol/L Glucose (74-99) mg/dL POC Glucose (mg/dL) 63 L 127 H 115 H (75-99) mg/dL Total Protein (6.3-8.2) g/dL Albumin (3.5-5.0) g/dL 11/09/18 11/09/18 11/09/18 Range/Units 06:54 06:54 06:56 WBC 12.8 H (3.8-10.6) k/uL MCV 102.6 H (80.0-100.0) fL MCHC 30.9 L (31.0-37.0) g/dL RDW 16.5 H (11.5-15.5) % Chloride 110 H (98-107) mmol/L Glucose 121 H (74-99) mg/dL POC Glucose (mg/dL) 115 H (75-99) mg/dL Total Protein 5.8 L (6.3-8.2) g/dL Albumin 2.8 L (3.5-5.0) g/dL 04/13/18 Range/Units 11:35 WBC (3.8-10.6) k/uL MCV (80.0-100.0) fL MCHC (31.0-37.0) g/dL RDW (11.5-15.5) % Chloride (98-107) mmol/L Glucose (74-99) mg/dL POC Glucose (mg/dL) 161 H (75-99) mg/dL Total Protein (6.3-8.2) g/dL Albumin (3.5-5.0) g/dL Microbiology - Last 24 Hours (Table) 04/11/18 19:15 Urine Culture - Final Urine,Catheterized 04/11/18 17:07 Blood Culture - Preliminary Blood No Growth after 24 hours Assessment and Plan Assessment: Pneumonia and pyelonephritis with sepsis, failed outpatient treatment, history of splenectomy -Continue with Zosyn as patient has a history of pseudomonal infection. levaquin for atypicals -ID recommendations appreciated -postvoid residuals normal -blood culture negative to date, patient has not been able to produce sputum -IV fluids completed -Discontinue Myrbetriq as it causes urinary retention and can lead to recurrent urinary tract infection - follow CXR till clear Acute exacerbation COPD with chronic hypoxic respiratory failure -Continue with supplemental oxygen -As needed bronchodilators -Symbicort Diabetes mellitus type 2 with neuropathy -Continue home Januvia -Sliding-scale insulin, off levemir with decreased BS on 04/12 -Hemoglobin A1c 7.8 -Lyrica Morbid obesity with BMI 46.7 -Outpatient structured weight loss Hypertension -Continue with metoprolol Macrocytosis -Outpatient workup Restless leg syndrome -Continue with Requip Chronic conditions: Dyslipidemia Rheumatoid arthritis Hypothyroidism Patient does not monitor [facility] facility but does want to return home with home health. She will continue to get up and out of bed at least 2 times daily and work with physical therapy. She states that her baseline is mostly wheelchair use with some ambulation with walker. DVT prophylaxis: Xarelto Discussed with: Patient, nursing Anticipated discharge: 1-[address]: home A total of 35 minutes was spent on the care of this complex patient more than 50 % of the time was spent in counseling and care coordination.
[2018-04-13] MEDS: predniSONE 20 MG TAB PO SCH (15:38)
[2018-04-13] MEDS: IPRATROPIUM-ALBUTEROL 3 ML NEB INHALATION SCH ×2 (15:49→19:32)
[2018-04-13 16:35] LABS: Glucose,Whole Blood 154 mg/dL (75-99)
[2018-04-13] MEDS: ASPIRIN 81 MG PO SCH (17:46)
[2018-04-13] MEDS: ATORVASTATIN 40 MG TAB PO SCH (17:46)
[2018-04-13] MEDS: RIVAROXABAN 20 MG TAB PO SCH (17:46)
[2018-04-13 20:08] LABS: Glucose,Whole Blood 228 mg/dL (75-99)
[2018-04-13] MEDS ORDERED: INSULIN DETEMIR 100 UNIT/ML 10 ML VIAL SQ SCH (21:00)
[2018-04-14] MEDS: PIPERACILLIN-TAZOBACTAM 3.375 GM in SODIUM CHLORIDE 0.9% 100 ML IVPB SCH ×2 (00:30→08:07)
[2018-04-14 05:45] VITALS: BP 133/66; TEMP 97.8
[2018-04-14] MEDS: LEVOTHYROXINE 100 MCG TAB PO SCH (06:17)
[2018-04-14 06:56] LABS: Anisocytosis Slight; HCT 48.2 % (34.0-46.0); Hypochromasia Slight; MCH 31.8 pg (25.0-35.0); MCV 102.4 fL (80.0-100.0); Macrocytosis Slight; Mean Platelet Volume 8.1; Platelet Count 287 k/uL (150-450); RDW 16.3 % (11.5-15.5); WBC 5.5 k/uL (3.8-10.6)
[2018-04-14 07:13] LABS: Glucose,Whole Blood 167 mg/dL (75-99)
[2018-04-14] MEDS: INSULIN ASPART 100 UNIT/ML 1 ML 10 ML VIAL SQ SCH ×2 (08:04→12:20)
[2018-04-14] MEDS: DICLOFENAC SODIUM GEL 100 GM TUBE TOPICAL SCH (08:05)
[2018-04-14] MEDS: PREGABALIN 100 MG CAP PO SCH (08:05)
[2018-04-14] MEDS: predniSONE 20 MG TAB PO SCH (08:05)
[2018-04-14] MEDS: ALLOPURINOL 100 MG TAB PO SCH (08:05)
[2018-04-14] MEDS: SENNOSIDES-DOCUSATE SODIUM 1 EACH TAB PO SCH (08:05)
[2018-04-14] MEDS: PANTOPRAZOLE 40 MG TABLET PO SCH (08:05)
[2018-04-14] MEDS: DULoxetine HCL 30 MG CAPSULE.DR PO SCH (08:05)
[2018-04-14] MEDS: COLLAGENASE 250 UNIT/GM OINTMENT 30 GM TUBE TOPICAL SCH (08:07)
[2018-04-14] MEDS: NYSTATIN 100,000 UNIT/GM POWD 15 GM TOPICAL SCH (08:07)
[2018-04-14] MEDS: METOPROLOL TARTRATE 25 MG TAB PO SCH (08:08)
[2018-04-14] MEDS: LINAGLIPTIN 5 MG TABLET PO SCH (08:09)
[2018-04-14] MEDS: IPRATROPIUM-ALBUTEROL 3 ML NEB INHALATION SCH ×2 (08:18→12:16)
[2018-04-14] MEDS: HYDROcodone/APAP 10-325MG 1 EACH TAB PO PRN (11:17)
[2018-04-14 11:32] LABS: Glucose,Whole Blood 216 mg/dL (75-99)
[2018-04-14 12:27] VITALS: PULSE 76
--- NOTE | 2018-04-14 13:35 | P.DS ---
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 In the ER she was tachycardic at 105 and she spike a fever of 100.7 approximately 30 minutes after initial vitals. She did become slightly hypotensive with blood pressure of 92/55. Initial laboratory analysis showed a white blood cell count of 16, urine appeared to have a urinary tract infection. She was started on Levaquin and cefepime. Arrangements were made for admission. She was given fluids. Blood cultures were obtained. Hx of Pseudomonas and Morganella in her urine and antibiotics were transitioned to Zosyn. Chest x-ray showed possible pneumonia. Though urinalysis was initially positive culture was negative. She underwent a CT abdomen and pelvis which just tremor demonstrated multiple hernias. Post void residuals were negative. Her Mybetriq was discontinued. On 04/13 her chest x- ray continued to show pneumonia. She was having some cough that was nonproductive. It was thought ath she likely has a Pneumonia and possible pyelonephritis despite culture negative urine. She remained on Levaquin and zosyn. She was started on steroids as she developed wheezing. Her WBC count normalized and her strength returned. She was seen by physical therapy who felt she was appropriate for home with home health. She will complete a course of levaquin and augmentin. Her total course of prednisone will be 5 days. She was discharged in stable condition. She will see Dr. Patric Richard in 1 week. I have also asked her to get an xray in 1 week to ensure clearing of her pneumonia. Patient seen and examined at bedside.Felling much better. Wheezing resolved. Back and dysuria improved. Wants to go home. no nausea, vomiting, or diarrhea. Shortness pf breath at baseline. Vital signs reviewed and stable. General: non toxic, no distress, appears at stated age, obese Derm: warm, dry Head: atraumatic, normocephalic, symmetric Eyes: EOMI, no lid lag, anicteric sclera Mouth: no lip lesion, mucus membranes moist Cardiovascular: S1S2 reg, no murmur, positive posterior tibial pulse bilateral, Lungs: faint wheeze left basel, no rhonchi, no rales , no accessory muscle use Abdominal: soft, nontender to palpation, no guarding, no appreciable organomegaly Ext: no gross muscle atrophy, no edema, no contractures Neuro: CN II-XI grossly intact, no focal neuro deficits Psych: Alert, oriented, appropriate affect A total of 35 minutes of time were spent preparing this complex discharge summary . Pertinent Studies: CXR- RUL infiltrate and LLL infiltrate CT ABd/pelvis- multiple ventral wall hernias Patient Condition at Discharge: Fair Plan - Discharge Summary Discharge Rx Participant: No New Discharge Prescriptions: New Amoxic-Pot Clav 875-125Mg [Augmentin 875-125] 1 tab PO Q12HR #9 tablet Levofloxacin [Levaquin] 750 mg PO DAILY #5 tab predniSONE 40 mg PO DAILY 3 Days #6 tab Continue sitaGLIPtin [Januvia] 100 mg PO DAILY@0800 rOPINIRole HCL [Requip] 3 mg PO HS@2100 DULoxetine HCL [Cymbalta] 30 mg PO BID@0800,1700 Rivaroxaban [Xarelto] 20 mg PO DAILY@1700 Omeprazole [PriLOSEC] 20 mg PO DAILY@0700 Allopurinol [Zyloprim] 100 mg PO DAILY@0800 Levothyroxine Sodium [Synthroid] 100 mcg PO DAILY Atorvastatin [Lipitor] 40 mg PO DAILY@1700 Polyethylene Glycol 3350 [Miralax] 17 gm PO DAILY PRN PRN Reason: Constipation L.acidoph,Paracasei, B.lactis [Probiotic] 1 cap PO DAILY Glucerna Shake 1 can PO HS Ferrous Sulfate [Feosol] 325 mg PO AC-SUPPER Cyclobenzaprine [Flexeril] 5 mg PO TID PRN PRN Reason: Muscle Spasm Cholecalciferol (Vitamin D3) [Vitamin D3] 4,000 unit PO DAILY@1700 Budesonide/Formoterol Fumarate [Symbicort 80-4.5 Mcg Inhaler] 2 puff INHALATION RT-BID PRN PRN Reason: Shortness Of Breath Amino Acids/Protein Hydrolys [Pro-Stat Supplement] 30 ml PO DAILY@1700 Acetaminophen Tab [Tylenol] 650 mg PO Q6H PRN PRN Reason: Pain Or Fever > 100.5 Ondansetron [Zofran] 4 mg PO Q8HR PRN PRN Reason: Nausea Albuterol Inhaler [Ventolin Hfa Inhaler] 2 puff INHALATION RT-Q4H PRN PRN Reason: Shortness Of Breath Sennosides/Docusate Sodium [Shayy Colace] 2 tab PO DAILY Miconazole Nitrate [Lotrimin AF Powder] 1 applic TOPICAL BID Aspirin EC [Ecotrin Low Dose] 81 mg PO DAILY@1700 Cranberry 425 Cap 425 mg PO AC-SUPPER Cranberry Fruit Concentrate [Azo Cranberry] 500 mg PO TID PRN PRN Reason: UTI Diclofenac Sodium [Voltaren Gel] 2 gram TOPICAL TID Metoprolol Tartrate [Lopressor] 12.5 mg PO BID@0800,1700 Collagenase [Santyl] 1 applic TOPICAL DAILY clonazePAM [KlonoPIN] 0.25 mg PO Q12H PRN #6 tab PRN Reason: Anxiety HYDROcodone/APAP 10-325MG [[place] 10-325] 1 tab PO Q4HR PRN #14 tab PRN Reason: Pain Pregabalin [Lyrica] 200 mg PO BID@0800,2100 #6 capsule Discontinued Mirabegron [Myrbetriq] 50 mg PO DAILY Discharge Medication List sitaGLIPtin [Januvia] 100 mg PO DAILY@0800 10/09/13 [History] DULoxetine HCL [Cymbalta] 30 mg PO BID@0800,1700 11/27/15 [History] rOPINIRole HCL [Requip] 3 mg PO HS@209911/27/15 [History] Rivaroxaban [Xarelto] 20 mg PO DAILY@1700 05/12/16 [History] Allopurinol [Zyloprim] 100 mg PO DAILY@0800 09/20/16 [History] Levothyroxine Sodium [Synthroid] 100 mcg PO DAILY 09/20/16 [History] Omeprazole [PriLOSEC] 20 mg PO DAILY@0700 09/20/16 [History] Atorvastatin [Lipitor] 40 mg PO DAILY@1700 05/02/17 [History] Acetaminophen Tab [Tylenol] 650 mg PO Q6H PRN 08/03/17 [History] Amino Acids/Protein Hydrolys [Pro-Stat Supplement] 30 ml PO DAILY@1700 08/03/17 [History] Budesonide/Formoterol Fumarate [Symbicort 80-4.5 Mcg Inhaler] 2 puff INHALATION RT-BID PRN 08/03/17 [History] Cholecalciferol (Vitamin D3) [Vitamin D3] 4,000 unit PO DAILY@169908/03/17 [ History] Cyclobenzaprine [Flexeril] 5 mg PO TID PRN 08/03/17 [History] Ferrous Sulfate [Feosol] 325 mg PO AC-SUPPER 08/03/17 [History] Glucerna Shake 1 can PO HS 08/03/17 [History] L.acidoph,Paracasei, B.lactis [Probiotic] 1 cap PO DAILY 08/03/17 [History] Polyethylene Glycol 3350 [Miralax] 17 gm PO DAILY PRN 08/03/17 [History] Albuterol Inhaler [Ventolin Hfa Inhaler] 2 puff INHALATION RT-Q4H PRN 09/07/17 [ History] Ondansetron [Zofran] 4 mg PO Q8HR PRN 09/07/17 [History] Sennosides/Docusate Sodium [Shayy Colace] 2 tab PO DAILY 09/07/17 [History] Aspirin EC [Ecotrin Low Dose] 81 mg PO DAILY@169909/13/17 [History] Miconazole Nitrate [Lotrimin AF Powder] 1 applic TOPICAL BID 09/13/17 [History] Cranberry 425 Cap 425 mg PO AC-SUPPER 11/24/17 [History] Cranberry Fruit Concentrate [Azo Cranberry] 500 mg PO TID PRN 11/24/17 [History] Diclofenac Sodium [Voltaren Gel] 2 gram TOPICAL TID 11/24/17 [History] Metoprolol Tartrate [Lopressor] 12.5 mg PO BID@0800,1700 11/24/17 [History] Collagenase [Santyl] 1 applic TOPICAL DAILY 02/20/18 [History] HYDROcodone/APAP 10-325MG [[place] 10-325] 1 tab PO Q4HR PRN #14 tab 03/13/18 [Rx] Pregabalin [Lyrica] 200 mg PO BID@0800,2100 #6 capsule 03/13/18 [Rx] clonazePAM [KlonoPIN] 0.25 mg PO Q12H PRN #6 tab 03/13/18 [Rx] Amoxic-Pot Clav 875-125Mg [Augmentin 875-125] 1 tab PO Q12HR #9 tablet 04/14/18 [Rx] Levofloxacin [Levaquin] 750 mg PO DAILY #5 tab 04/14/18 [Rx] predniSONE 40 mg PO DAILY 3 Days #6 tab 04/14/18 [Rx] Follow up Appointment(s)/Referral(s): Patric Richard MD [Primary Care Provider] - 1-2 days Ambulatory/Diagnostic Orders: XR chest 2V [RAD.AMB] Time Frame: 1 Week, Location: None Selected XR chest 2V [RAD.AMB] Time Frame: 1 Week, Location: None Selected XR chest 2V [RAD.AMB] Time Frame: 1 Week, Location: None Selected Activity/Diet/Wound Care/Special Instructions: heart healthy carb consistent diet Activity as tolerated Repeat chest x-ray in 1 week Discharge Disposition: HOME WITH HOME HEALTH SERVICES
== END 2018-04-14 14:12 | disposition home health service (06) | DRG 871 ==
LOC: EC 16:12 → 3NMEDONC 19:54 → 3SCARD 22:47 → 3NMEDONC 04-12 15:10
PROVIDERS: ADMIT Internal Medicine; ATTEND Internal Medicine
DX: A41.9 Sepsis, unspecified organism (principal); J15.6 Pneumonia due to other Gram-negative bacteria; J44.0 Chronic obstructive pulmonary disease with (acute) lower respiratory infection; J44.1 Chronic obstructive pulmonary disease with (acute) exacerbation; J96.11 Chronic respiratory failure with hypoxia; N10 Acute pyelonephritis; Z68.42 Body mass index [BMI] 45.0-49.9, adult; D75.89 Other specified diseases of blood and blood-forming organs; E03.9 Hypothyroidism, unspecified; E11.42 Type 2 diabetes mellitus with diabetic polyneuropathy; E66.01 Morbid (severe) obesity due to excess calories; E78.5 Hyperlipidemia, unspecified; F32.9 Major depressive disorder, single episode, unspecified; G25.81 Restless legs syndrome; I10 Essential (primary) hypertension; M06.9 Rheumatoid arthritis, unspecified; G89.29 Other chronic pain; M10.9 Gout, unspecified; M19.90 Unspecified osteoarthritis, unspecified site; M54.9 Dorsalgia, unspecified; R07.9 Chest pain, unspecified; K46.9 Unspecified abdominal hernia without obstruction or gangrene; Z79.01 Long term (current) use of anticoagulants; Z79.899 Other long term (current) drug therapy; Z79.82 Long term (current) use of aspirin; Z79.890 Hormone replacement therapy; Z79.84 Long term (current) use of oral hypoglycemic drugs; Z79.51 Long term (current) use of inhaled steroids; Z85.71 Personal history of Hodgkin lymphoma; Z86.711 Personal history of pulmonary embolism; Z86.718 Personal history of other venous thrombosis and embolism; Z87.440 Personal history of urinary (tract) infections; Z87.891 Personal history of nicotine dependence; Z90.81 Acquired absence of spleen; Z92.3 Personal history of irradiation; Z99.3 Dependence on wheelchair; Z96.651 Presence of right artificial knee joint; Z87.01 Personal history of pneumonia (recurrent); Z90.49 Acquired absence of other specified parts of digestive tract
CPT/HCPCS: 36415; 51701; 71045; 71046; 74176; 80053; 81001; 83036; 83605; 83735; 84484; 85025; 85027; 85610; 85730; 87040; 87086; 87502; 93005; 94640; 94760; 96361; 96365; 96367; 96375; 99285

== ENCOUNTER 2018-04-24 09:03 | Inpatient (IN) | payer MEDICARE ==
[2018-04-24] MEDS ORDERED: IBUPROFEN 600 MG TAB PO STA (09:38)
[2018-04-24] MEDS ORDERED: cefTRIAXone 2,000 MG in SODIUM CHLORIDE 0.9% 100 ML IVPB STA (09:38)
[2018-04-24] MEDS ORDERED: ACETAMINOPHEN TAB 500 MG TAB PO STA (09:38)
--- NOTE | 2018-04-24 09:41 | ED ---
General Adult HPI - General Chief complaint: Altered Mental Status Stated complaint: DELERIUM Time Seen by Provider: 04/24/18 09:05 Source: patient, EMS, RN notes reviewed Mode of arrival: EMS Limitations: altered mental status, physical limitation - History of Present Illness Initial comments: This is a 72-year-old female who presents emergency Department with a past medical history significant for diabetes COPD and urinary tract infections. states this morning she was so weak she was unable to even help get out of bed. also states that she was altered mentally in talking to people that weren't even in the room. states in the past this is been due to urinary tract infections most of the time. Patient denies any difficulty breathing or shortness of breath though she is on oxygen 2 and half liters 24 hours a day. Patient denies any chest pain or palpitations. Patient denies any significant cough. states she has had an occasional dry cough. Patient denies abdominal pain patient denies nausea vomiting or diarrhea recently. Patient denies any injury or trauma. - Related Data Home Medications Medication Instructions Recorded Confirmed DULoxetine HCL [Cymbalta] 30 mg PO BID@0800,1700 11/27/15 04/24/18 rOPINIRole HCL [Requip] 3 mg PO HS@2100 11/27/15 04/24/18 Rivaroxaban [Xarelto] 20 mg PO DAILY@1700 05/12/16 04/24/18 Allopurinol [Zyloprim] 100 mg PO DAILY@0800 09/20/16 04/24/18 Levothyroxine Sodium [Synthroid] 100 mcg PO DAILY 09/20/16 04/24/18 Omeprazole [PriLOSEC] 20 mg PO DAILY@0700 09/20/16 04/24/18 Atorvastatin [Lipitor] 40 mg PO DAILY@1700 05/02/17 04/24/18 Acetaminophen Tab [Tylenol] 650 mg PO Q6H PRN 08/03/17 04/24/18 Amino Acids/Protein Hydrolys 30 ml PO DAILY@1700 08/03/17 04/24/18 [Pro-Stat Supplement] Budesonide/Formoterol Fumarate 2 puff INHALATION RT-BID PRN 08/03/17 04/24/18 [Symbicort 80-4.5 Mcg Inhaler] Cholecalciferol (Vitamin D3) 4,000 unit PO DAILY@1700 08/03/17 04/24/18 [Vitamin D3] Cyclobenzaprine [Flexeril] 5 mg PO TID PRN 08/03/17 04/24/18 Ferrous Sulfate [Feosol] 325 mg PO AC-SUPPER 08/03/17 04/24/18 Glucerna Shake 1 can PO HS 08/03/17 04/24/18 L.acidoph,Paracasei, B.lactis 1 cap PO DAILY 08/03/17 04/24/18 [Probiotic] Polyethylene Glycol 3350 [Miralax] 17 gm PO DAILY PRN 08/03/17 04/24/18 Albuterol Inhaler [Ventolin Hfa 2 puff INHALATION RT-Q4H PRN 09/07/17 04/24/18 Inhaler] Ondansetron [Zofran] 4 mg PO Q8HR PRN 09/07/17 04/24/18 Sennosides/Docusate Sodium [Shayy 2 tab PO DAILY 09/07/17 04/24/18 Colace] Aspirin EC [Ecotrin Low Dose] 81 mg PO DAILY@1700 09/13/17 04/24/18 Miconazole Nitrate [Lotrimin AF 1 applic TOPICAL BID 09/13/17 04/24/18 Powder] Cranberry 425 Cap 425 mg PO AC-SUPPER 11/24/17 04/24/18 Diclofenac Sodium [Voltaren Gel] 2 gram TOPICAL TID 11/24/17 04/24/18 Metoprolol Tartrate [Lopressor] 12.5 mg PO BID@0800,1700 11/24/17 04/24/18 Collagenase [Santyl] 1 applic TOPICAL DAILY 02/20/18 04/24/18 clonazePAM [KlonoPIN] 0.25 mg PO BID PRN 04/24/18 04/24/18 sitaGLIPtin [Januvia] 100 mg PO DAILY 04/24/18 04/24/18 Previous Rx's Medication Instructions Recorded HYDROcodone/APAP 10-325MG [[place] 1 tab PO Q4HR PRN #14 tab 03/13/18 10-325] Pregabalin [Lyrica] 200 mg PO BID@0800,2100 #6 capsule 03/13/18 Amoxic-Pot Clav 875-125Mg 1 tab PO Q12HR #9 tablet 11/10/18 [Augmentin 875125] Levofloxacin [Levaquin] 750 mg PO DAILY #5 tab 04/14/18 predniSONE 40 mg PO DAILY 3 Days #6 tab 04/14/18 Allergies Allergy/AdvReac Type Severity Reaction Status Date / Time No Known Drug Allergies Allergy No known Verified 04/24/18 09:14 allergy Review of Systems ROS Statement: Those systems with pertinent positive or pertinent negative responses have been documented in the HPI. ROS Other: All systems not noted in ROS Statement are negative. Past Medical History Past Medical History: Cancer, COPD, Diabetes Mellitus, Deep Vein Thrombosis (DVT ), Hyperlipidemia, Hypertension, Pneumonia, Pulmonary Embolus (PE), Rheumatoid Arthritis (RA), Skin Disorder, Thyroid Disorder Additional Past Medical History / Comment(s): Morbid obesity, COPD, diabetes mellitus, remote history of DVT and pulmonary embolism, hypertension, hyperlipidemia, hypothyroidism, rheumatoid arthritis, history of fracture of the right lower extremity requiring surgery, right lower extremity wound that has healed, previous history of Hodgkin's lymphoma treated with a splenectomy and subsequent radiation therapy in 1993, chronic hypoxic respiratory failure patient on oxygen at 2 L overnight, 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 Past Anesthesia/Blood Transfusion Reactions: No Reported Reaction Past Psychological History: Depression Smoking Status: Former smoker Past Alcohol Use History: None Reported Past Drug Use History: None Reported - Past Family History Father Family Medical History: No Reported History Additional Family Medical History / Comment(s): Father was healthy and lived to be 88yrs old. Mother Family Medical History: No Reported History Additional Family Medical History / Comment(s): Pt states mother was healthy and lived to be 90yrs old. Son(s) Family Medical History: No Reported History Additional Family Medical History / Comment(s): She relates that her parents of old age her mother was about 90 father was 88, without sniffing and medical troubles. She does relate that her son committed suicide but her daughter is quite healthy. General Exam - General Exam Comments Initial Comments: GENERAL: Patient is well-developed and well-nourished. Patient is nontoxic and well- hydrated and is in mild distress. ENT: Neck is soft and supple. No significant lymphadenopathy is noted. Oropharynx is clear. Moist mucous membranes. Neck has full range of motion without eliciting any pain. EYES: The sclera were anicteric and conjunctiva were pink and moist. Extraocular movements were intact and pupils were equal round and reactive to light. Eyelids were unremarkable. PULMONARY: Unlabored respirations. Good breath sounds bilaterally. No slight Rales on the CARDIOVASCULAR: There is a regular rate and rhythm without any murmurs gallops or rubs. ABDOMEN: Soft and nontender with normal bowel sounds. No palpable organomegaly was noted. There is no palpable pulsatile mass. SKIN: Skin is clear with no lesions or rashes and otherwise unremarkable. NEUROLOGIC: Patient is alert and oriented 2. Cranial nerves II through XII are grossly intact. Motor and sensory are also intact. Normal speech, volume and content. Symmetrical smile. MUSCULOSKELETAL: Normal extremities with adequate strength and full range of motion. No lower extremity swelling or edema. No calf tenderness. LYMPHATICS: No significant lymphadenopathy is noted PSYCHIATRIC: Normal psychiatric evaluation. Limitations: altered mental status, physical limitation Course Vital Signs 04/24/18 04/24/18 04/24/18 09:24 09:30 10:00 Temperature 101.4 F H Pulse Rate 111 H Respiratory 18 Rate Blood Pressure 94/49 94/49 80/61 O2 Sat by Pulse 91 L 89 L 90 L Oximetry 04/24/18 04/24/18 04/24/18 10:30 10:42 11:00 Temperature 98.6 F Pulse Rate Respiratory 17 Rate Blood Pressure 89/62 100/58 O2 Sat by Pulse Oximetry 04/24/18 04/24/18 04/24/18 11:30 11:37 12:00 Temperature Pulse Rate 86 Respiratory 18 18 Rate Blood Pressure 83/45 94/50 O2 Sat by Pulse 95 90 L Oximetry 04/24/18 04/24/18 04/24/18 12:30 13:00 13:15 Temperature Pulse Rate 89 Respiratory 17 Rate Blood Pressure 82/53 75/44 79/49 O2 Sat by Pulse 94 L 95 93 L Oximetry 04/24/18 04/24/18 04/24/18 13:30 13:33 13:39 Temperature Pulse Rate 91 91 Respiratory 18 18 Rate Blood Pressure 87/54 86/50 84/58 O2 Sat by Pulse 95 94 L Oximetry 04/24/18 04/24/18 04/24/18 13:45 14:00 14:15 Temperature Pulse Rate Respiratory Rate Blood Pressure 84/58 65/46 87/56 O2 Sat by Pulse 94 L 94 L 94 L Oximetry 04/24/18 04/24/18 04/24/18 14:23 14:30 14:39 Temperature 98.4 F Pulse Rate 84 Respiratory 17 Rate Blood Pressure 117/71 128/75 O2 Sat by Pulse 95 95 Oximetry 04/24/18 04/24/18 14:45 14:52 Temperature Pulse Rate 84 Respiratory 17 Rate Blood Pressure 129/78 100/53 O2 Sat by Pulse 93 L 92 L Oximetry Medical Decision Making - Medical Decision Making EKG shows sinus tachycardia at 115 bpm VA interval is on a 52 QRS 106 QT interval 334 QTC is 462. Patient's EKG shows no ST segment elevation or depression or T wave abnormalities are noted. Patient chest x-ray shows an infiltrate. Patient got 2 g of Rocephin emergency department. Patient is considered to be septic at this point. Patient also received 1500 mL of fluid. Patient's ideal body weight is 48 kg. I spoke with the depression admitted the patient wrote admitting orders. I continued antibiotics on the floor. I spoke with Dr. Rosas he agreed to consult the patient and admitted the patient to the ICU. The patient had to be started on Levaquin because of lowering blood pressure even though the patient received 2-1/2 L of fluid. Patient refuses central line at that time I spoke to Dr. Rosas he was aware of this - Lab Data Result diagrams: 04/24/18 09:23 04/24/18 09:23 Lab Results 04/24/18 04/24/18 04/24/18 Range/Units 09:23 09:23 09:23 WBC 24.9 H (3.8-10.6) k/uL RBC 4.79 (3.80-5.40) m/uL Hgb 15.5 (11.4-16.0) gm/dL Hct 48.2 H (34.0-46.0) % MCV 100.7 H (80.0-100.0) fL MCH 32.4 (25.0-35.0) pg MCHC 32.2 (31.0-37.0) g/dL RDW 16.3 H (11.5-15.5) % Plt Count 292 (150-450) k/uL Neutrophils % 91 % Lymphocytes % 4 % Monocytes % 4 % Eosinophils % 1 % Basophils % 0 % Neutrophils # 22.7 H (1.3-7.7) k/uL Lymphocytes # 0.9 L (1.0-4.8) k/uL Monocytes # 1.0 (0-1.0) k/uL Eosinophils # 0.1 (0-0.7) k/uL Basophils # 0.0 (0-0.2) k/uL Hypochromasia Slight Anisocytosis Slight Macrocytosis Slight PT (9.0-12.0) sec INR (<1.2) APTT (22.0-30.0) sec Sodium 140 (137-145) mmol/L Potassium 4.5 (3.5-5.1) mmol/L Chloride 106 (98-107) mmol/L Carbon Dioxide 26 (22-30) mmol/L Anion Gap 8 mmol/L BUN 15 (7-17) mg/dL Creatinine 0.91 (0.52-1.04) mg/dL Est GFR (CKD-EPI)AfAm 72 (>60 ml/min/1.73 sqM) Est GFR (CKD-EPI)NonAf 63 (>60 ml/min/1.73 sqM) Glucose 271 H (74-99) mg/dL Lactic Ac Sepsis Rflx Plasma Lactic Acid Gee (0.7-2.0) mmol/L Calcium 10.5 H (8.4-10.2) mg/dL Total Bilirubin 0.6 (0.2-1.3) mg/dL AST 23 (14-36) U/L ALT 28 (9-52) U/L Alkaline Phosphatase 101 (38-126) U/L Total Creatine Kinase 44 (30-135) U/L CK-MB (CK-2) 1.2 (0.0-2.4) ng/mL CK-MB (CK-2) Rel Index 2.7 Troponin I 0.037 H* (0.000-0.034) ng/mL Total Protein 6.6 (6.3-8.2) g/dL Albumin 3.4 L (3.5-5.0) g/dL Urine Color Urine Appearance (Clear) Urine pH (5.0-8.0) Ur Specific [place] (1.001-1.035) Urine Protein (Negative) Urine Glucose (UA) (Negative) Urine Ketones (Negative) Urine Blood (Negative) Urine Nitrite (Negative) Urine Bilirubin (Negative) Urine Urobilinogen (<2.0) mg/dL Ur Leukocyte Esterase (Negative) Urine RBC (0-5) /hpf Urine WBC (0-5) /hpf Ur Squamous Epith Cells (0-4) /hpf Hyaline Casts (0-2) /lpf Urine Mucus (None) /hpf Influenza Type A RNA (Not Detectd) Influenza Type B (PCR) (Not Detectd) 04/24/18 04/24/18 04/24/18 Range/Units 09:23 09:23 09:23 WBC (3.8-10.6) k/uL RBC (3.80-5.40) m/uL Hgb (11.4-16.0) gm/dL Hct (34.0-46.0) % MCV (80.0-100.0) fL MCH (25.0-35.0) pg MCHC (31.0-37.0) g/dL RDW (11.5-15.5) % Plt Count (150-450) k/uL Neutrophils % % Lymphocytes % % Monocytes % % Eosinophils % % Basophils % % Neutrophils # (1.3-7.7) k/uL Lymphocytes # (1.0-4.8) k/uL Monocytes # (0-1.0) k/uL Eosinophils # (0-0.7) k/uL Basophils # (0-0.2) k/uL Hypochromasia Anisocytosis Macrocytosis PT 10.6 (9.0-12.0) sec INR 1.1 (<1.2) APTT 25.2 (22.0-30.0) sec Sodium (137-145) mmol/L Potassium (3.5-5.1) mmol/L Chloride (98-107) mmol/L Carbon Dioxide (22-30) mmol/L Anion Gap mmol/L BUN (7-17) mg/dL Creatinine (0.52-1.04) mg/dL Est GFR (CKD-EPI)AfAm (>60 ml/min/1.73 sqM) Est GFR (CKD-EPI)NonAf (>60 ml/min/1.73 sqM) Glucose (74-99) mg/dL Lactic Ac Sepsis Rflx Plasma Lactic Acid Gee 2.5 H* (0.7-2.0) mmol/L Calcium (8.4-10.2) mg/dL Total Bilirubin (0.2-1.3) mg/dL AST (14-36) U/L ALT (9-52) U/L Alkaline Phosphatase (38-126) U/L Total Creatine Kinase (30-135) U/L CK-MB (CK-2) (0.0-2.4) ng/mL CK-MB (CK-2) Rel Index Troponin I (0.000-0.034) ng/mL Total Protein (6.3-8.2) g/dL Albumin (3.5-5.0) g/dL Urine Color Urine Appearance (Clear) Urine pH (5.0-8.0) Ur Specific [place] (1.001-1.035) Urine Protein (Negative) Urine Glucose (UA) (Negative) Urine Ketones (Negative) Urine Blood (Negative) Urine Nitrite (Negative) Urine Bilirubin (Negative) Urine Urobilinogen (<2.0) mg/dL Ur Leukocyte Esterase (Negative) Urine RBC (0-5) /hpf Urine WBC (0-5) /hpf Ur Squamous Epith Cells (0-4) /hpf Hyaline Casts (0-2) /lpf Urine Mucus (None) /hpf Influenza Type A RNA Not Detected (Not Detectd) Influenza Type B (PCR) Not Detected (Not Detectd) 04/24/18 04/24/18 Range/Units 10:09 10:32 WBC (3.8-10.6) k/uL RBC (3.80-5.40) m/uL Hgb (11.4-16.0) gm/dL Hct (34.0-46.0) % MCV (80.0-100.0) fL MCH (25.0-35.0) pg MCHC (31.0-37.0) g/dL RDW (11.5-15.5) % Plt Count (150-450) k/uL Neutrophils % % Lymphocytes % % Monocytes % % Eosinophils % % Basophils % % Neutrophils # (1.3-7.7) k/uL Lymphocytes # (1.0-4.8) k/uL Monocytes # (0-1.0) k/uL Eosinophils # (0-0.7) k/uL Basophils # (0-0.2) k/uL Hypochromasia Anisocytosis Macrocytosis PT (9.0-12.0) sec INR (<1.2) APTT (22.0-30.0) sec Sodium (137-145) mmol/L Potassium (3.5-5.1) mmol/L Chloride (98-107) mmol/L Carbon Dioxide (22-30) mmol/L Anion Gap mmol/L BUN (7-17) mg/dL Creatinine (0.52-1.04) mg/dL Est GFR (CKD-EPI)AfAm (>60 ml/min/1.73 sqM) Est GFR (CKD-EPI)NonAf (>60 ml/min/1.73 sqM) Glucose (74-99) mg/dL Lactic Ac Sepsis Rflx Y Plasma Lactic Acid Gee (0.7-2.0) mmol/L Calcium (8.4-10.2) mg/dL Total Bilirubin (0.2-1.3) mg/dL AST (14-36) U/L ALT (9-52) U/L Alkaline Phosphatase (38-126) U/L Total Creatine Kinase (30-135) U/L CK-MB (CK-2) (0.0-2.4) ng/mL CK-MB (CK-2) Rel Index Troponin I (0.000-0.034) ng/mL Total Protein (6.3-8.2) g/dL Albumin (3.5-5.0) g/dL Urine Color Dark Yellow Urine Appearance Clear (Clear) Urine pH 6.5 (5.0-8.0) Ur Specific [place] 1.018 (1.001-1.035) Urine Protein Trace H (Negative) Urine Glucose (UA) Negative (Negative) Urine Ketones Negative (Negative) Urine Blood Negative (Negative) Urine Nitrite Negative (Negative) Urine Bilirubin Negative (Negative) Urine Urobilinogen <2.0 (<2.0) mg/dL Ur Leukocyte Esterase Small H (Negative) Urine RBC 1 (0-5) /hpf Urine WBC 6 H (0-5) /hpf Ur Squamous Epith Cells 1 (0-4) /hpf Hyaline Casts 7 H (0-2) /lpf Urine Mucus Rare H (None) /hpf Influenza Type A RNA (Not Detectd) Influenza Type B (PCR) (Not Detectd) Critical Care Time Critical Care Time: Yes Total Critical Care Time: 35 Disposition Clinical Impression: Pneumonia, Sepsis, Altered mental status Disposition: ADMITTED IP TO THIS [facility] Time of Disposition: 11:12
[2018-04-24] MEDS: SODIUM CHLORIDE 0.9% 500 ML 500 ML IV SCH ×3 (10:10→11:18)
[2018-04-24 10:18] LABS: Anisocytosis Slight; Basophils % (A) 0 %; Eosinophils # (A) 0.1 k/uL (0-0.7); Eosinophils % (A) 1 %; HCT 48.2 % (34.0-46.0); HGB 15.5 gm/dL (11.4-16.0); Hypochromasia Slight; Lymphocytes # (A) 0.9 k/uL (1.0-4.8); Lymphocytes % (A) 4 %; MCH 32.4 pg (25.0-35.0); MCHC 32.2 g/dL (31.0-37.0); MCV 100.7 fL (80.0-100.0); Macrocytosis Slight; Mean Platelet Volume 8.7; Monocytes % (A) 4 %; Neutrophils # (A) 22.7 k/uL (1.3-7.7); Neutrophils % (A) 91 %; Platelet Count 292 k/uL (150-450); RBC 4.79 m/uL (3.80-5.40); RDW 16.3 % (11.5-15.5); WBC 24.9 k/uL (3.8-10.6)
[2018-04-24 10:31] LABS: INR 1.1 (<1.2); Prothrombin Time 10.6 sec (9.0-12.0)
[2018-04-24 10:32] LABS: Partial Thromboplastin Time 25.2 sec (22.0-30.0)
[2018-04-24 10:33] LABS: Albumin 3.4 g/dL (3.5-5.0); Calcium 10.5 mg/dL (8.4-10.2); Potassium 4.5 mmol/L (3.5-5.1); Total Bilirubin 0.6 mg/dL (0.2-1.3); Total Protein 6.6 g/dL (6.3-8.2)
--- NOTE | 2018-04-24 10:51 | XR ---
EXAMINATION TYPE: XR chest 2V DATE OF EXAM: 04/24/2018 COMPARISON: Prior chest x-ray 04/13/2018 HISTORY: Fever, weakness TECHNIQUE: Frontal and lateral views of the chest are obtained. FINDINGS: Airspace disease is present in the right upper lobe, possibly lower lobe. No evident pneum othorax or pleural effusion. Arthropathy noted in the shoulders. Cardiac mediastinal silhouette not s ignificantly changed accounting for rotation, there is likely cardiac enlargement. Mediastinal wideni ng is suspected. IMPRESSION: Findings may represent pneumonia, correlate, follow-up recommended.
[2018-04-24 10:53] LABS: Appearance,Urine Clear (Clear); Bilirubin,Urine Negative (Negative); Blood,Urine Negative (Negative); Color,Urine Dark Yellow; Glucose,Urine (UA) Negative (Negative); Hyaline Casts,Urine 7 /lpf (0-2); Ketones,Urine Negative (Negative); Leukocyte Esterase,Urine Small (Negative); Mucus,Urine Rare /hpf; Nitrite,Urine Negative (Negative); PH, Urine 6.5 (5.0-8.0); Protein,Urine Trace (Negative); RBC,Urine 1 /hpf (0-5); Specific Gravity,Urine 1.018 (1.001-1.035); Squamous Epithelial Cell,Urine 1 /hpf (0-4); Urobilinogen,Urine <2.0 mg/dL (<2.0); WBC,Urine 6 /hpf (0-5)
[2018-04-24 11:00] LABS: Creatine Kinase MB 1.2 ng/mL (0.0-2.4)
[2018-04-24 11:01] LABS: Troponin I 0.037 ng/mL (0.000-0.034)
[2018-04-24] MEDS ORDERED: PNEUMONIA PROTOCOL UTILIZED 1 EACH MISC PO PRN (11:12)
[2018-04-24] MEDS ORDERED: AZITHROMYCIN 500 MG in SODIUM CHLORIDE 0.9% 250 ML IVPB STA (11:12)
[2018-04-24] MEDS ORDERED: PIPERACILLIN-TAZOBACTAM 3.375 GM in SODIUM CHLORIDE 0.9% 100 ML IVPB STA (11:40)
[2018-04-24] MEDS ORDERED: NOREPINEPHRINE 4 MG in SODIUM CHLORIDE 0.9% 250 ML IV SCH (13:45)
[2018-04-24] MEDS: PIPERACILLIN-TAZOBACTAM 3.375 GM in SODIUM CHLORIDE 0.9% 100 ML IVPB SCH ×2 (14:22→20:40)
[2018-04-24] MEDS ORDERED: LEVOFLOXACIN 750MG-D5W PMX 750 MG in DEXTROSE/WATER 1 150ML.BAG IVPB STA (14:23)
[2018-04-24 15:09] LABS: Glucose,Whole Blood 177 mg/dL (75-99)
[2018-04-24] MEDS ORDERED: NALOXONE 0.4 MG/ML 1 ML VIAL IV PRN (15:42)
[2018-04-24] MEDS: SODIUM CHLORIDE 0.9% 1,000 ML IV SCH (15:50)
[2018-04-24] MEDS ORDERED: HEPARIN SODIUM,PORCINE 5,000 UNIT/ML 1 ML VIAL SQ SCH (16:00)
--- NOTE | 2018-04-24 17:04 | P.CNPUL ---
History of Present Illness Consult date: 04/24/18 Requesting physician: Juan Macias Reason for consult: other (Acute septic shock) Chief complaint: Weakness and altered mental status. History of present illness: This is a 72-year-old female, familiar to my service, patient was admitted to [facility] about a month and a half ago with acute urinary tract infection and sepsis. Patient was seen at the time by Dr. Medellin. She was treated for acute urinary tract infection, sepsis and septic shock. Eventually the patient responded well to treatment, did not require any intubation or mechanical ventilation. This time the patient had a similar presentation, she presented with weakness, altered mental status according to the , and upon presentation she was noted to be hypotensive and did not respond to 2 L of fluid boluses, and she was placed on norepinephrine. Patient was admitted to the ICU, and I was asked to see her on consultation. Presently she is on her third liter of fluid bolus, she is on norepinephrine at 2 mcg/kg/m , her labs showed evidence of leukocytosis with WBC count of 24.9. Electrolytes were normal. Lactic acid on presentation was 2.5 follow-up lactic was 2.0. Troponin was borderline elevated at 0.037. Her urinalysis was noted to be relatively unremarkable except for small leukocyte esterase. WBC count in the urine was only 6. At any rate her chest x-ray did show evidence ofdisease mostly involving the right upper lobe. Patient was admitted to the ICU, I saw her on consultation, and I recommended antibiotics in the form of vancomycin and cefepime, I also recommended continuing to norepinephrine. Placed on the ICU protocol for sepsis and septic shock, patient declined having a central line placement according to the ER physician. She has adequate peripheral IV access at present, and the dose of norepinephrine seems to be minimal. Review of Systems ROS unobtainable: due to mental status Past Medical History Past Medical History: Cancer, COPD, Diabetes Mellitus, Deep Vein Thrombosis (DVT ), Hyperlipidemia, Hypertension, Pneumonia, Pulmonary Embolus (PE), Rheumatoid Arthritis (RA), Skin Disorder, Thyroid Disorder Additional Past Medical History / Comment(s): Morbid obesity, COPD, diabetes mellitus, remote history of DVT and pulmonary embolism, hypertension, hyperlipidemia, hypothyroidism, rheumatoid arthritis, history of fracture of the right lower extremity requiring surgery, right lower extremity wound that has healed, previous history of Hodgkin's lymphoma treated with a splenectomy and subsequent radiation therapy in 1993, chronic hypoxic respiratory failure patient on oxygen at 2 L overnight, 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 Past Anesthesia/Blood Transfusion Reactions: No Reported Reaction Past Psychological History: Depression Smoking Status: Former smoker Past Alcohol Use History: None Reported Past Drug Use History: None Reported - Past Family History Father Family Medical History: No Reported History Additional Family Medical History / Comment(s): Father was healthy and lived to be 88yrs old. Mother Family Medical History: No Reported History Additional Family Medical History / Comment(s): Pt states mother was healthy and lived to be 90yrs old. Son(s) Family Medical History: No Reported History Additional Family Medical History / Comment(s): She relates that her parents of old age her mother was about 90 father was 88, without sniffing and medical troubles. She does relate that her son committed suicide but her daughter is quite healthy. Medications and Allergies Home Medications Medication Instructions Recorded Confirmed Type DULoxetine HCL [Cymbalta] 30 mg PO BID@0800,1700 11/27/15 04/24/18 History rOPINIRole HCL [Requip] 3 mg PO HS@2100 11/27/15 04/24/18 History Rivaroxaban [Xarelto] 20 mg PO DAILY@1700 05/12/16 04/24/18 History Allopurinol [Zyloprim] 100 mg PO DAILY@0800 09/20/16 04/24/18 History Levothyroxine Sodium [Synthroid] 100 mcg PO DAILY 09/20/16 04/24/18 History Omeprazole [PriLOSEC] 20 mg PO DAILY@0700 09/20/16 04/24/18 History Atorvastatin [Lipitor] 40 mg PO DAILY@1700 05/02/17 04/24/18 History Acetaminophen Tab [Tylenol] 650 mg PO Q6H PRN 08/03/17 04/24/18 History Amino Acids/Protein Hydrolys 30 ml PO DAILY@1700 08/03/17 04/24/18 History [Pro-Stat Supplement] Budesonide/Formoterol Fumarate 2 puff INHALATION RT-BID PRN 08/03/17 04/24/18 History [Symbicort 80-4.5 Mcg Inhaler] Cholecalciferol (Vitamin D3) 4,000 unit PO DAILY@1700 08/03/17 04/24/18 History [Vitamin D3] Cyclobenzaprine [Flexeril] 5 mg PO TID PRN 08/03/17 04/24/18 History Ferrous Sulfate [Feosol] 325 mg PO AC-SUPPER 08/03/17 04/24/18 History Glucerna Shake 1 can PO HS 08/03/17 04/24/18 History L.acidoph,Paracasei, B.lactis 1 cap PO DAILY 08/03/17 04/24/18 History [Probiotic] Polyethylene Glycol 3350 [Miralax] 17 gm PO DAILY PRN 08/03/17 04/24/18 History Albuterol Inhaler [Ventolin Hfa 2 puff INHALATION RT-Q4H PRN 09/07/17 04/24/18 History Inhaler] Ondansetron [Zofran] 4 mg PO Q8HR PRN 09/07/17 04/24/18 History Sennosides/Docusate Sodium [Shayy 2 tab PO DAILY 09/07/17 04/24/18 History Colace] Aspirin EC [Ecotrin Low Dose] 81 mg PO DAILY@0 09/13/17 04/24/18 History Miconazole Nitrate [Lotrimin AF 1 applic TOPICAL BID 09/13/17 04/24/18 History Powder] Cranberry 425 Cap 425 mg PO AC-SUPPER 11/24/17 04/24/18 History Diclofenac Sodium [Voltaren Gel] 2 gram TOPICAL TID 11/24/17 04/24/18 History Metoprolol Tartrate [Lopressor] 12.5 mg PO BID@0800,1700 11/24/17 04/24/18 History Collagenase [Santyl] 1 applic TOPICAL DAILY 02/20/18 04/24/18 History HYDROcodone/APAP 10-325MG [[place] 1 tab PO Q4HR PRN #14 tab 03/13/18 04/24/18 Rx 10-325] Pregabalin [Lyrica] 200 mg PO BID@0800,2100 #6 capsule 03/13/18 04/24/18 Rx Amoxic-Pot Clav 875-125Mg 1 tab PO Q12HR #9 tablet 04/14/18 04/24/18 Rx [Augmentin 875-125] Levofloxacin [Levaquin] 750 mg PO DAILY #5 tab 04/14/18 04/24/18 Rx predniSONE 40 mg PO DAILY 3 Days #6 tab 04/14/18 04/24/18 Rx clonazePAM [KlonoPIN] 0.25 mg PO BID PRN 04/24/18 04/24/18 History sitaGLIPtin [Januvia] 100 mg PO DAILY 04/24/18 04/24/18 History Allergies Allergy/AdvReac Type Severity Reaction Status Date / Time No Known Drug Allergies Allergy No known Verified 04/24/18 09:14 allergy Physical Exam Vitals: Vital Signs Temp Pulse Resp BP Pulse Ox 04/24/18 16:15 98.5 F 78 15 85/47 94 L 04/24/18 16:00 82 14 69/41 93 L 04/24/18 15:45 84 18 91/60 94 L 04/24/18 15:30 87 15 115/71 92 L 04/24/18 15:15 98.5 F 92 17 90/63 89 L 04/24/18 15:06 83 L 04/24/18 14:52 84 17 100/53 92 L 04/24/18 14:45 129/78 93 L 04/24/18 14:39 98.4 F 04/24/18 14:30 128/75 95 04/24/18 14:23 84 17 117/71 95 04/24/18 14:15 87/56 94 L 04/24/18 14:00 65/46 94 L 04/24/18 13:45 84/58 94 L 04/24/18 13:39 91 18 84/58 94 L 04/24/18 13:33 91 18 86/50 04/24/18 13:30 87/54 95 04/24/18 13:15 79/49 93 L 04/24/18 13:00 75/44 95 04/24/18 12:30 89 17 82/53 94 L 04/24/18 12:00 86 18 94/50 90 L 04/24/18 11:37 95 04/24/18 11:30 18 83/45 04/24/18 11:00 17 100/58 04/24/18 10:42 98.6 F 04/24/18 10:30 89/62 04/24/18 10:00 80/61 90 L 04/24/18 09:30 94/49 89 L 04/24/18 09:24 101.4 F H 111 H 18 94/49 91 L Intake and Output 04/24/18 04/24/18 04/24/18 06:59 14:59 22:59 Intake Total 6.875 1166.71 Output Total 150 Balance 6.875 1016.71 Intake: IV 1150 0.9 Bolus 1000 Piperacillin-Tazobactam 3 50 .375 gm In Sodium Chloride 0.9% 100 ml @ 25 mls/hr IVPB Q8H [facility] Rx#: [id number] Sodium Chloride 0.9% 1, 100 000 ml @ 100 mls/hr IV . Q10H [facility] Rx#:[id number] Intake, IV Titration 6.875 16.71 Amount Norepinephrine 4 mg In 6.875 16.71 Sodium Chloride 0.9% 250 ml @ Titrate IV .Q0M [facility] Rx#:[id number] Output: Urine 150 Other: Voiding Method Indwelling Catheter Weight 107.955 kg Physical exam revealed a 72-year-old female slightly confused, however not noted to be in any form of respiratory distress. Head: Atraumatic, normocephalic, dry mucous membranes was noted. HEENT examination is grossly unremarkable. Moist mucous membranes, no JVD, no thyromegaly, no neck masses. Neck supple. Full range of motion. No adenopathy thyromegaly or neck vein distention. Cardiovascular examination reveals regular rhythm rate. S1-S2 normal. No S3 or S4. No discernible murmur noted. Lungs reveal clear breath sounds. Her sounds are equal bilaterally. No adventitious lung sounds including wheezes rhonchi or crackles. Abdomen soft bowel sounds are heard. No masses or tenderness.Abdominal exam revealed normal bowel sounds. The abdomen was soft, non-tender, and without masses, organomegaly, or appreciable enlargement of the abdominal aorta. Extremities are intact. No cyanosis clubbing. Small healed ulcer on the anterior surface of the right mid leg, there is trace edema lower extremities bilaterally. Pulses are diminished at the present. Skin is without rash or lesion. Neurologic examination is brief but nonfocal. Patient seems to be a bit lethargic, answers simple questions, slightly confused. Psychiatric: Blunted affect, depressed mood, questionable mental status examination, patient is lethargic and a bit confused. Results - Laboratory Findings CBC and BMP: 04/24/18 09:23 04/24/18 09:23 PT/INR, D-dimer PT 10.6 sec (9.0-12.0) 04/24/18 09:23 INR 1.1 (<1.2) 04/24/18 09:23 Abnormal lab findings: Abnormal Labs 04/24/18 04/24/18 04/24/18 09:23 09:23 09:23 WBC 24.9 H Hct 48.2 H MCV 100.7 H RDW 16.3 H Neutrophils # 22.7 H Lymphocytes # 0.9 L Glucose 271 H POC Glucose (mg/dL) Plasma Lactic Acid Gee Calcium 10.5 H Troponin I 0.037 H* Albumin 3.4 L Urine Protein Ur Leukocyte Esterase Urine WBC Hyaline Casts Urine Mucus 04/24/18 04/24/18 04/24/18 09:23 10:09 15:06 WBC Hct MCV RDW Neutrophils # Lymphocytes # Glucose POC Glucose (mg/dL) 177 H Plasma Lactic Acid Gee 2.5 H* Calcium Troponin I Albumin Urine Protein Trace H Ur Leukocyte Esterase Small H Urine WBC 6 H Hyaline Casts 7 H Urine Mucus Rare H - Diagnostic Findings Chest x-ray: image reviewed Assessment and Plan Assessment: Impression: 1 acute sepsis and septic shock, most likely source is right upper lobe pneumonia, likely healthcare acquired pneumonia patient was recently in rehab, and prior to that she was inpatient. 2 acute right upper lobe pneumonia as noted above, likely healthcare acquired. 3 morbid obesity, BMI of 48.8. 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 14 poor performance status. Recommendation: Patient will be continued on IV fluids, pressors, antibiotics, nutritional support, GI and DVT prophylaxis, IC protocol for sepsis. We'll continue to follow closely. Patient is critically ill, will remain in the ICU for now. Time with Patient: Greater than 30
[2018-04-24 18:04] LABS: Glucose,Whole Blood 137 mg/dL (75-99)
[2018-04-24] MEDS: INSULIN ASPART 100 UNIT/ML 1 ML 10 ML VIAL SQ SCH ×2 (18:08→23:08)
[2018-04-24] MEDS ORDERED: FUROSEMIDE 10 MG/ML 4 ML VIAL IV STA (21:27)
[2018-04-24] MEDS ORDERED: ONDANSETRON 4 MG TAB PO PRN (21:59)
[2018-04-24] MEDS ORDERED: CYCLOBENZAPRINE 5 MG TAB PO PRN (21:59)
[2018-04-24] MEDS ORDERED: POLYETHYLENE GLYCOL 3350 17 GM POWD.PACK PO PRN (21:59)
[2018-04-24] MEDS ORDERED: HYDROcodone/APAP 10-325MG 1 EACH TAB PO PRN (21:59)
[2018-04-24] MEDS ORDERED: clonazePAM 0.5 MG TAB PO PRN (21:59)
[2018-04-24] MEDS: DICLOFENAC SODIUM GEL 100 GM TUBE TOPICAL SCH (22:45)
[2018-04-24 23:02] LABS: Glucose,Whole Blood 81 mg/dL (75-99)
--- NOTE | 2018-04-24 23:04 | HP ---
HISTORY AND PHYSICAL DATE OF ADMISSION: April 24, 2018. DATE OF SERVICE: April 24, 2018. PRESENTING COMPLAINT: Fever, chills. HISTORY OF PRESENTING COMPLAINT: This is a 72-year-old patient with extensive medical history. Chronic stable medical conditions include COPD, diabetes, hyperlipidemia, chronic rheumatoid arthritis, hypothyroid, essential hypertension, morbid obesity, chronic hypoxic respiratory failure, peripheral neuropathy, restless legs syndrome and chronic medical debility. Patient is pretty much wheelchair-bound. The patient now presents through the ER. This morning, she was noted by the that she was so weak that could not even help her get out of bed. She was somewhat delirious and even mumbling. The patient basically at 2 L at oxygen at home. Chest x-ray in the ER did reveal pneumonia. The patient is started on dual antibiotics. The patient's blood pressure was running low and hence she was admitted to the ICU with Levophed drip. The patient is still somewhat dazed right now. The patient is able answer some questions. She has been otherwise tolerating a diet at home. REVIEW OF SYSTEMS: CONSTITUTIONAL: Weak, tired, somewhat confused. HEENT none. RESPIRATORY: Cough. CARDIOVASCULAR: None. GASTROINTESTINAL: None. GENITOURINARY: None. MUSCULOSKELETAL: Pain in the joints. DERMATOLOGICAL, HEMATOLOGIC, LYMPHATIC: None. PSYCHIATRY: Confused. NEUROLOGICAL: Numbness and tingling in the feet. PAST MEDICAL HISTORY: COPD, diabetes, DVT, hyperlipidemia, hypertension, pulmonary embolism, rheumatoid arthritis, hypothyroid, morbid obesity, DVT, PE, fracture, right lower extremity, Hodgkin's lymphoma treated with splenectomy and radiation treatment. Home oxygen 2 L, peripheral neuropathy, bilateral lower extremity edema, gout, UTIs, chronic low back pain. Restless legs syndrome, normally wheelchair-bound. PAST SURGICAL HISTORY: Appendectomy, , cholecystectomy, right bimalleolar repair. Right lower leg I and D, total right knee arthroplasty, bilateral carpal tunnel release. Right rotator cuff. PSYCH HISTORY: History of depression. SOCIAL HISTORY: . Lives with her . She used to do retail sales. Stopped working many years ago. The patient smoked for 30 years, stopped in 1993, smoked about a pack a day. FAMILY HISTORY: Parents of old age. HOME MEDICATIONS: 1. [place] 10 one tablet q.4h p.r.n. 2. Prednisone 40 mg p.o. daily. 3. Klonopin 0.25 p.o. b.i.d. p.r.n. 4. Lyrica 200 mg b.i.d. 5. Levaquin 750 mg p.o. daily. 6. Augmentin 875 1 tablet p.o. q.12. 7. Lopressor 12.5 p.o. b.i.d. 8. Voltaren gel 2 g q.i.d. 9. Santyl one application topical daily. 10.Shayy-Colace 2 tablets p.o. daily. 11.Zofran 4 mg p.o. q.8h p.r.n. 12.Lotrimin AF 1 application topical b.i.d. 13.Cranberry 425 before supper. 14.Aspirin 81 mg p.o. daily. 15.Probiotic 1 capsule p.o. daily. 16.Glucerna Shake 1 can p.o. at bedtime. 17.Iron 325 p.o. with supper. 18.Vitamin D3 4000 units p.o. daily. 19.ProStat 30 mL p.o. daily. 20.Ventolin HFA 2 puffs q.4h p.r.n. 21.MiraLAX 17 grams p.o. daily p.r.n. 22.Flexeril 5 mg p.o. t.i.d. p.r.n. 23.Symbicort 80/4.5, 2 puffs b.i.d. p.r.n. 24.Lipitor 40 mg p.o. daily. 25.Tylenol 650 mg q.6h p.r.n. 26.Requip 3 mg q.h.s. 27.Xarelto 20 mg p.o. daily. 28.Prilosec 20 mg p.o. daily. 29.Synthroid 100 mcg p.o. daily. 30.Allopurinol 100 mg p.o. daily. 31.Januvia 100 mg p.o. daily. 32.Cymbalta 30 mg p.o. b.i.d. ALLERGIES: None. PHYSICAL EXAMINATION: VITAL SIGNS: Temperature 101.4, pulse 101, respiration 18, blood pressure 95/49, pulse ox 91 percent on 3 L. GENERAL APPEARANCE: Well built, BMI 46.5, lying in bed, tired-appearing. EYES: Pupils equal. Conjunctivae normal. HEENT: External appearance of nose and ears normal. Oral cavity dry. NECK: JVD unable to assess. Mass not palpable. RESPIRATORY EFFORT: Increased. LUNGS: Decreased breath sounds. CARDIOVASCULAR: 1st and 2nd sounds normal. Minimal edema. ABDOMEN: Distended, soft. Liver and spleen not palpable. LYMPHATICS: No lymph nodes palpable in the neck and axilla. PSYCHIATRY: Patient lethargic but able to answer simple questions. NEUROLOGICAL: Pupils equal. Cranial nerves grossly intact. Power and sensation grossly intact. MUSCULOSKELETAL: Evidence of osteoarthritis especially in the multiple joints. INVESTIGATIONS: White count 24.9, hemoglobin 15.5, potassium 4.5. BUN and creatinine is normal. Troponin 0.037. Chest x-ray film personally reviewed by me shows right middle lobe infiltrate. ASSESSMENT: 1. Right middle lobe infiltrates, suspect gram-negative organism causing sepsis, present on admission. Also causing acute delirium. 2. Hypertensive shock from sepsis. The patient requiring pressors. 3. Chronic obstructive pulmonary disease in an ex-smoker. 4. Diabetes mellitus type 2. 5. Hyperlipidemia. 6. Essential hypertension. 7. Chronic rheumatoid arthritis. 8. Hypothyroid. 9. Morbid obesity BMI greater than 46. 10.Chronic hypoxic respiratory failure on 2 L oxygen. 11.Peripheral neuropathy secondary to diabetes. 12.Multiple joints, degenerative joint disease. 13.Restless legs syndrome. 14.Chronic medical debility. Patient is pretty much wheelchair-bound. PLAN: Patient admitted to the ICU, started on IV fluids, Levophed drip, IV Zosyn, Levaquin. Home medications renewed. Talked to the patient and the family present. Dr. Rosas saw the patient from [facility]. Copy to Dr. Richard. MMODL / IJN: [id number] /
[2018-04-24] MEDS: HYDROCORTISONE SUCCINATE 100 MG/2 ML VIAL IV SCH (23:07)
[2018-04-25] MEDS: SODIUM CHLORIDE 0.9% 1,000 ML IV SCH ×3 (01:44→20:43)
[2018-04-25] MEDS: PIPERACILLIN-TAZOBACTAM 3.375 GM in SODIUM CHLORIDE 0.9% 100 ML IVPB SCH ×3 (03:19→20:41)
[2018-04-25 04:01] LABS: Hemoglobin A1C 8.3 % (4.0-6.0)
[2018-04-25 05:01] LABS: Anisocytosis Slight; Basophils % (A) 0 %; Eosinophils % (A) 0 %; HGB 14.4 gm/dL (11.4-16.0); Hypochromasia Slight; Lymphocytes # (A) 1.1 k/uL (1.0-4.8); Lymphocytes % (A) 5 %; MCH 31.9 pg (25.0-35.0); MCHC 31.3 g/dL (31.0-37.0); MCV 101.7 fL (80.0-100.0); Macrocytosis Slight; Mean Platelet Volume 7.9; Monocytes # (A) 0.4 k/uL (0-1.0); Monocytes % (A) 2 %; Neutrophils # (A) 19.8 k/uL (1.3-7.7); Neutrophils % (A) 92 %; Platelet Count 279 k/uL (150-450); RBC 4.52 m/uL (3.80-5.40); RDW 16.4 % (11.5-15.5); WBC 21.4 k/uL (3.8-10.6)
[2018-04-25 05:08] LABS: Anion Gap 8 mmol/L; Blood Urea Nitrogen 14 mg/dL (7-17); Calcium 9.4 mg/dL (8.4-10.2); Carbon Dioxide 25 mmol/L (22-30); Chloride 110 mmol/L (98-107); Glucose 139 mg/dL (74-99); Magnesium 1.9 mg/dL (1.6-2.3); Phosphorus 3.2 mg/dL (2.5-4.5); Potassium 3.8 mmol/L (3.5-5.1); Sodium 143 mmol/L (137-145)
[2018-04-25 06:01] LABS: Glucose,Whole Blood 158 mg/dL (75-99)
--- NOTE | 2018-04-25 06:01 | CONS ---
CONSULTATION DATE OF SERVICE: 04/24/2018 REASON FOR CONSULTATION: Sepsis. HISTORY OF PRESENT ILLNESS: The patient is a 72-year-old female with a past medical history significant for recent admission to hospital with UTI and pneumonia. The patient did have a culture done last admission that was negative. She did have overall improvement on Zosyn and subsequently discharged home on the oral Augmentin and Levaquin. The patient now has been brought back to the [facility] ER by the with the chief complaints of generalized weakness to the point that she was unable to get out of bed. also complained that the patient having some mental status changes and she was talking to people that were not in the room. With these symptoms, the patient was brought to the hospital where the patient was evaluated by the ER physician. The patient was noticed to have a significant hypotension requiring multiple fluid boluses and subsequently required a low dose pressor that prompted admission to the ICU. The patient on presentation did have a fever of 101.4 degrees Fahrenheit with initial blood pressure to as low as 69 systolic. She was also tachycardic and white count elevated at 24,000. Her urine was shows only small leukocyte esterase and only 6 WBC. Influenza serology was negative. Chest x-ray did show right upper lobe pneumonia. She initially received a dose of Rocephin and Zithromax. Subsequently has been switched over to Zosyn and Levaquin. Infectious Disease was consulted for further recommendation regarding antibiotic therapy. The patient did mention she did have a feeling of sick yesterday and has been mostly feeling weak and tired, no . She has some mild cough, but not bringing up any sputum. Patient denies any abdominal pain. No nausea, no vomiting, no diarrhea and no burning or frequency of urine. REVIEW OF SYSTEMS: Positive points have been mentioned in the HPI. Rest of systems has been negative. PAST MEDICAL HISTORY: Diabetes mellitus, COPD, DVT, rheumatoid arthritis, hypothyroidism, hypertension, hyperlipidemia, pulmonary embolism, morbid obesity, recurrent UTIs and pneumonia. PAST SURGICAL HISTORY: Appendectomy, , cholecystectomy, right bimalleolar repair, right lower leg I and D, EGD, colonoscopy. SOCIAL HISTORY: Remote history of smoking. No drinking or drug use. FAMILY HISTORY: No pertinent findings noticed. ALLERGIES: No known drug allergies. MEDICATIONS: Medications currently include the patient is on Tylenol, [place], Zyloprim, aspirin, Lipitor, Klonopin, Flexeril, Voltaren, Cymbalta, iron sulfate, Solu-Cortef, NovoLog, Levaquin, Tradjenta, Lopressor, norepinephrine, Mycostatin powder, Zofran, Zosyn, MiraLAX, Lyrica, Xarelto, Requip, Senokot. PHYSICAL EXAMINATION: On examination, blood pressure is 94/51 with a pulse of 75, temperature of 98, T-max 101.4. She is 95% on 3 L nasal cannula. General description is an elderly female lying in bed in no distress. No tachypnea or accessory muscle of respiration use. HEENT examination shows no pallor or scleral icterus. Oral mucous membrane is dry. No pharyngeal erythema or thrush. Neck: Trachea central. No thyromegaly. LUNGS: Unlabored breathing with decreased breath sounds at the bases. No wheeze or crackle. HEART: S1, S2. Regular rate and rhythm. ABDOMEN: Soft, no tenderness. No guarding or rigidity. EXTREMITIES: Chronic swelling but no redness or open wounds noticed. SKIN EXAMINATION: No rash or mass palpable. NEUROLOGICALLY: Patient is lethargic, but easily arousable, oriented x2. Mood and affect normal. LABS: Hemoglobin is 15.5, white count 24.9 with a BUN of 15, creatinine 0.91. Lactic acid was 2.5. Troponin has been elevated. Influenza serology has been negative. DIAGNOSTIC IMPRESSION AND PLAN: Patient admitted to the hospital with sepsis/septic shock in this patient who did have significant hypotension with systolic down to 69 systolic, requiring multiple fluid boluses and pressor support [place] [id number] with elevated lactic acid. Source is likely right upper lobe pneumonia in this patient who has been recently admitted to hospital, concern for possible resistant gram- negative pneumonia such as Pseudomonas aeruginosa. PLAN: 1. We will try to obtain sputum for Gram stain culture and sensitivity. 2. Antibiotic in the form of Zosyn 3.375 grams q. hours with Levaquin should provide adequate coverage for underlying pneumonia, gram-negative pneumonia. 3. We will follow up on clinical condition and culture to further adjust medication if needed. Thank you for this consultation. Will follow this patient along with you. MMODL / IJN: [id number] /
[2018-04-25] MEDS ORDERED: Potassium Replacement Protocol 1 EACH MISC MISCELLANE PRN (06:10)
[2018-04-25] MEDS: INSULIN ASPART 100 UNIT/ML 1 ML 10 ML VIAL SQ SCH ×4 (06:18→20:48)
[2018-04-25] MEDS: LEVOTHYROXINE 100 MCG TAB PO SCH (06:19)
[2018-04-25] MEDS ORDERED: NON-FORMULARY DRUG (Omeprazole 20 MG) PO SCH (07:00)
[2018-04-25] MEDS ORDERED: POTASSIUM CHLORIDE ER 20 MEQ TAB.ER PO SCH ×2 (07:00→12:00)
--- NOTE | 2018-04-25 07:56 | P.PN ---
Subjective Progress Note Date: 04/25/18 Principal diagnosis: Acute septic shock, right upper lobe pneumonia This is a 72-year-old female, familiar to my service, patient was admitted to [facility] about a month and a half ago with acute urinary tract infection and sepsis. Patient was seen at the time by Dr. Medellin. She was treated for acute urinary tract infection, sepsis and septic shock. Eventually the patient responded well to treatment, did not require any intubation or mechanical ventilation. This time the patient had a similar presentation, she presented with weakness, altered mental status according to the , and upon presentation she was noted to be hypotensive and did not respond to 2 L of fluid boluses, and she was placed on norepinephrine. Patient was admitted to the ICU, and I was asked to see her on consultation. Presently she is on her third liter of fluid bolus, she is on norepinephrine at 2 mcg/kg/m , her labs showed evidence of leukocytosis with WBC count of 24.9. Electrolytes were normal. Lactic acid on presentation was 2.5 follow-up lactic was 2.0. Troponin was borderline elevated at 0.037. Her urinalysis was noted to be relatively unremarkable except for small leukocyte esterase. WBC count in the urine was only 6. At any rate her chest x-ray did show evidence ofdisease mostly involving the right upper lobe. Patient was admitted to the ICU, I saw her on consultation, and I recommended antibiotics in the form of vancomycin and cefepime, I also recommended continuing to norepinephrine. Placed on the ICU protocol for sepsis and septic shock, patient declined having a central line placement according to the ER physician. She has adequate peripheral IV access at present, and the dose of norepinephrine seems to be minimal. Patient was reevaluated today on 04/25/2018, doing much better today. She is off norepinephrine, and the relatively hemodynamically stable. Patient has good urine output, and she seems to be alert and oriented 3. Her mean arterial pressure remains a bit marginal, labs were reviewed WBC count is 21.4 hemoglobin is 14.4. Electrolytes are normal, bicarb is normal renal profile is normal. Troponin 0.072 yesterday. Chest x-ray shows nodular infiltrates in the right upper lobe and in the right lower lobe, there is definite right hilar fullness, but she had a previous CT angiogram of the chest showing the fullness is mostly vascular nature related to prominent right pulmonary artery. This was done in the last few months. Patient remains on her usual meds, Antibiotics segura she remains on Zosyn and Levaquin. Cultures are pending. Objective - Vital Signs Vital signs: Vital Signs Temp 99.1 F 04/25/18 04:00 Pulse 96 04/25/18 07:00 Resp 18 04/25/18 07:00 BP 123/66 04/25/18 07:00 Pulse Ox 93 L 04/25/18 07:00 Intake & Output 04/24/18 04/25/18 04/25/18 18:59 06:59 18:59 Intake Total 3667.280 9385.875 Output Total 210 2595 Balance 1170.460 -706.125 Weight 107.955 kg 119.2 kg Intake: IV 1350 1500 0.9 Bolus 1000 Piperacillin-Tazobactam 3 50 200 .375 gm In Sodium Chloride 0.9% 100 ml @ 25 mls/hr IVPB Q8H [facility] Rx#: [id number] Sodium Chloride 0.9% 1, 300 1300 000 ml @ 100 mls/hr IV . Q10H [facility] Rx#:[id number] Intake, IV Titration 30.460 88.875 Amount Norepinephrine 4 mg In 30.460 88.875 Sodium Chloride 0.9% 250 ml @ Titrate IV .Q0M [facility] Rx#:[id number] Oral 300 Output: Urine 210 2595 Other: Voiding Method Indwelling Catheter Indwelling Catheter - Exam Physical exam revealed a 72-year-old female, alert, oriented 3, and confusion has completely resolved over the last 24 hours. Head: Atraumatic, normocephalic, dry mucous membranes was noted. HEENT examination is grossly unremarkable. Moist mucous membranes, no JVD, no thyromegaly, no neck masses. Neck supple. Full range of motion. No adenopathy thyromegaly or neck vein distention. Cardiovascular examination reveals regular rhythm rate. S1-S2 normal. No S3 or S4. No discernible murmur noted. Lungs reveal clear breath sounds. Her sounds are equal bilaterally. No adventitious lung sounds including wheezes rhonchi or crackles. Abdomen soft bowel sounds are heard. No masses or tenderness.Abdominal exam revealed normal bowel sounds. The abdomen was soft, non-tender, and without masses, organomegaly, or appreciable enlargement of the abdominal aorta. Extremities are intact. No cyanosis clubbing. Small healed ulcer on the anterior surface of the right mid leg, there is trace edema lower extremities bilaterally. Pulses are diminished at the present. Skin is without rash or lesion. Neurologic examination is revealing normal mental status examination, alert oriented 3 today. Psychiatric: Normal mood, affect, and mental status examination is improved today. - Labs CBC & Chem 7: 04/25/18 04:19 04/25/18 04:19 Labs: Abnormal Lab Results - Last 24 Hours (Table) 04/24/18 04/24/18 04/24/18 Range/Units 09:23 09:23 09:23 WBC 24.9 H (3.8-10.6) k/uL Hct 48.2 H (34.0-46.0) % MCV 100.7 H (80.0-100.0) fL RDW 16.3 H (11.5-15.5) % Neutrophils # 22.7 H (1.3-7.7) k/uL Lymphocytes # 0.9 L (1.0-4.8) k/uL Chloride (98-107) mmol/L Glucose 271 H (74-99) mg/dL POC Glucose (mg/dL) (75-99) mg/dL Hemoglobin A1c (4.0-6.0) % Plasma Lactic Acid Gee (0.7-2.0) mmol/L Calcium 10.5 H (8.4-10.2) mg/dL Troponin I 0.037 H* (0.000-0.034) ng/mL Albumin 3.4 L (3.5-5.0) g/dL Urine Protein (Negative) Ur Leukocyte Esterase (Negative) Urine WBC (0-5) /hpf Hyaline Casts (0-2) /lpf Urine Mucus (None) /hpf 04/24/18 04/24/18 04/24/18 Range/Units 09:23 09:23 10:09 WBC (3.8-10.6) k/uL Hct (34.0-46.0) % MCV (80.0-100.0) fL RDW (11.5-15.5) % Neutrophils # (1.3-7.7) k/uL Lymphocytes # (1.0-4.8) k/uL Chloride (98-107) mmol/L Glucose (74-99) mg/dL POC Glucose (mg/dL) (75-99) mg/dL Hemoglobin A1c 8.3 H (4.0-6.0) % Plasma Lactic Acid Gee 2.5 H* (0.7-2.0) mmol/L Calcium (8.4-10.2) mg/dL Troponin I (0.000-0.034) ng/mL Albumin (3.5-5.0) g/dL Urine Protein Trace H (Negative) Ur Leukocyte Esterase Small H (Negative) Urine WBC 6 H (0-5) /hpf Hyaline Casts 7 H (0-2) /lpf Urine Mucus Rare H (None) /hpf 04/24/18 04/24/18 04/24/18 Range/Units 15:06 18:02 20:29 WBC (3.8-10.6) k/uL Hct (34.0-46.0) % MCV (80.0-100.0) fL RDW (11.5-15.5) % Neutrophils # (1.3-7.7) k/uL Lymphocytes # (1.0-4.8) k/uL Chloride (98-107) mmol/L Glucose (74-99) mg/dL POC Glucose (mg/dL) 177 H 137 H (75-99) mg/dL Hemoglobin A1c (4.0-6.0) % Plasma Lactic Acid Gee (0.7-2.0) mmol/L Calcium (8.4-10.2) mg/dL Troponin I 0.072 H* (0.000-0.034) ng/mL Albumin (3.5-5.0) g/dL Urine Protein (Negative) Ur Leukocyte Esterase (Negative) Urine WBC (0-5) /hpf Hyaline Casts (0-2) /lpf Urine Mucus (None) /hpf 04/25/18 04/25/18 04/25/18 Range/Units 04:19 04:19 06:00 WBC 21.4 H (3.8-10.6) k/uL Hct (34.0-46.0) % MCV 101.7 H (80.0-100.0) fL RDW 16.4 H (11.5-15.5) % Neutrophils # 19.8 H (1.3-7.7) k/uL Lymphocytes # (1.0-4.8) k/uL Chloride 110 H (98-107) mmol/L Glucose 139 H (74-99) mg/dL POC Glucose (mg/dL) 158 H (75-99) mg/dL Hemoglobin A1c (4.0-6.0) % Plasma Lactic Acid Gee (0.7-2.0) mmol/L Calcium (8.4-10.2) mg/dL Troponin I (0.000-0.034) ng/mL Albumin (3.5-5.0) g/dL Urine Protein (Negative) Ur Leukocyte Esterase (Negative) Urine WBC (0-5) /hpf Hyaline Casts (0-2) /lpf Urine Mucus (None) /hpf Microbiology - Last 24 Hours (Table) 04/24/18 10:09 Urine Culture - Preliminary Urine,Catheterized Assessment and Plan Assessment: Impression: 1 acute sepsis and septic shock, most likely source is right upper lobe pneumonia, likely healthcare acquired pneumonia patient was recently in rehab, and prior to that she was inpatient. 2 acute right upper lobe pneumonia as noted above, likely healthcare acquired. 3 morbid obesity, BMI of 48.8. 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 14 poor performance status. 15 acute metabolic encephalopathy resolved over the last 24 hours. Recommendation: Continue present antibiotics, continue supportive care measures , GI and DVT prophylaxis, consider transferring the patient out of the ICU today if she continues to remain hemodynamically stable. We'll continue to follow.
[2018-04-25] MEDS ORDERED: LEVOFLOXACIN 750MG-D5W PMX 750 MG in DEXTROSE/WATER 1 150ML.BAG IVPB SCH (08:00)
--- NOTE | 2018-04-25 08:02 | XR ---
EXAMINATION TYPE: XR chest 1V DATE OF EXAM: 04/25/2018 COMPARISON: Prior chest x-ray 04/24/[address] 02/21/2018, chest x-ray 04/11/2018 HISTORY: Pneumonia TECHNIQUE: Single frontal view of the chest is obtained. FINDINGS: Patient is rotated. Heart size is stable. Mediastinum appears widened. No evident pneumoth orax or pleural effusion. Suspect some improvement in aeration in the right upper lobe. Prominent angela g volumes compatible with underlying emphysema. There is persistent dislocation of the right shoulder . IMPRESSION: Improved aeration, follow-up PA and lateral chest x-ray recommended, additional findings above.
[2018-04-25] MEDS: SENNOSIDES-DOCUSATE SODIUM 1 EACH TAB PO SCH (08:17)
[2018-04-25] MEDS: LINAGLIPTIN 5 MG TABLET PO SCH (08:18)
[2018-04-25] MEDS: PREGABALIN 100 MG CAP PO SCH ×2 (08:18→20:42)
[2018-04-25] MEDS: METOPROLOL TARTRATE 25 MG TAB PO SCH ×2 (08:18→17:15)
[2018-04-25] MEDS: ALLOPURINOL 100 MG TAB PO SCH (08:18)
[2018-04-25] MEDS: PANTOPRAZOLE 40 MG/10 ML VIAL IV SCH (08:19)
[2018-04-25] MEDS: HYDROCORTISONE SUCCINATE 100 MG/2 ML VIAL IV SCH ×3 (08:19→23:25)
[2018-04-25] MEDS: DULoxetine HCL 30 MG CAPSULE.DR PO SCH ×2 (08:19→17:18)
[2018-04-25] MEDS: DICLOFENAC SODIUM GEL 100 GM TUBE TOPICAL SCH ×3 (08:25→20:43)
[2018-04-25] MEDS: COLLAGENASE 250 UNIT/GM OINTMENT 30 GM TUBE TOPICAL SCH (08:25)
[2018-04-25] MEDS: NYSTATIN 100,000 UNIT/GM POWD 15 GM TOPICAL SCH ×2 (08:26→20:41)
[2018-04-25] MEDS ORDERED: NON-FORMULARY DRUG (L.Acidoph,Paracasei, B.Lactis [Probiotic] 1 CAP) PO SCH (09:00)
[2018-04-25] MEDS ORDERED: AZITHROMYCIN 500 MG TAB PO SCH (09:00)
[2018-04-25] MEDS ORDERED: IPRATROPIUM-ALBUTEROL 3 ML NEB INHALATION PRN (09:18)
[2018-04-25] MEDS: IPRATROPIUM-ALBUTEROL 3 ML NEB INHALATION SCH ×3 (10:54→19:13)
[2018-04-25 11:49] LABS: Glucose,Whole Blood 233 mg/dL (75-99)
[2018-04-25] MEDS: ACETAMINOPHEN TAB 325 MG TAB PO PRN (13:09)
[2018-04-25] MEDS ORDERED: NON-FORMULARY DRUG (Amino Acids/Protein Hydrolys [Pro-Stat Supplement] 30 ML) PO SCH (17:00)
[2018-04-25 17:12] LABS: Glucose,Whole Blood 251 mg/dL (75-99)
[2018-04-25] MEDS: ASPIRIN 81 MG PO SCH (17:15)
[2018-04-25] MEDS: ATORVASTATIN 40 MG TAB PO SCH (17:15)
[2018-04-25] MEDS: FERROUS SULFATE 325 MG TAB PO SCH (17:15)
[2018-04-25] MEDS: RIVAROXABAN 20 MG TAB PO SCH (17:18)
[2018-04-25] MEDS ORDERED: CRANBERRY 425 MG PO SCH (17:30)
--- NOTE | 2018-04-25 19:26 | PN ---
PROGRESS NOTE DATE OF SERVICE: April 25, 2018. PRESENTING COMPLAINT: Fever, chills. INTERVAL HISTORY: The patient has multiple medical problems presented with pneumonia and acute delirium and sepsis. The patient also had hypotensive shock and had been on pressors. Doing much better. Now awake in the ICU. is present. Talking. Started to eat. REVIEW OF SYSTEMS: Done for constitutional, cardiovascular, GI, pulmonary and relevant findings as above. CURRENT MEDICATIONS: Reviewed that include IV Levaquin and IV Zosyn, IV fluids. EXAMINATION: Afebrile, pulse 110, respiration 20, blood pressure 90/55, pulse ox 93 percent on 4 L. GENERAL APPEARANCE: Propped up in bed, awake, answering questions. EYES: Pupils equal. Conjunctivae normal. HEENT: External appearance of nose and ears normal. Oral cavity normal. NECK: JVD unable to assess. Mass not palpable. LUNGS: Decreased breath sounds. CARDIOVASCULAR: 1st and 2nd sounds normal. Minimal edema. ABDOMEN: Soft, nontender. Liver and spleen not palpable. PSYCHIATRY: Awake, answering questions appropriately. INVESTIGATIONS: White count 21.4, potassium 3.8. Chest x-ray reports improved aeration. ASSESSMENT: 1. Right middle lobe pneumonia suspect gram-negative organism causing sepsis on admission with clinical response. 2. Acute delirium from pneumonia, improving. 3. Hypotensive shock from sepsis. The patient had been on pressors, doing better. 4. Chronic obstructive pulmonary disease in an ex-smoker. 5. Diabetes mellitus type 2. 6. Hyperlipidemia. 7. Essential hypertension. 8. Chronic rheumatoid arthritis. 9. Hypothyroid. 10.Morbid obesity BMI 46. 11.Chronic hypoxic respiratory failure on 2 L oxygen. 12.Peripheral neuropathy secondary to diabetes. 13.Multiple joints degenerative joint disease. 14.Restless legs syndrome. 15.Chronic medical debility. Patient is wheelchair bound. PLAN: Continue current medication and treatment plan, IV fluids, IV antibiotics will continue. Care was discussed with the patient and at the bedside. MMODL / IJN: [id number] /
[2018-04-25 20:33] LABS: Glucose,Whole Blood 266 mg/dL (75-99)
[2018-04-25] MEDS ORDERED: NON-FORMULARY DRUG (Glucerna Shake 1 CAN) PO SCH (21:00)
[2018-04-25] MEDS: INSULIN DETEMIR 100 UNIT/ML 10 ML VIAL SQ SCH (21:30)
--- NOTE | 2018-04-25 23:41 | PN ---
PROGRESS NOTE DATE OF SERVICE: 04/25/2018 REASON FOR FOLLOWUP: Pneumonia. INTERVAL HISTORY: The patient is afebrile. She was more awake and alert today. She has been breathing comfortably. She continues to have a cough, bringing up some sputum, and did provide a sputum sample, which is currently in process. Denies having any chest pain. No abdominal pain and no diarrhea. PHYSICAL EXAMINATION: Her blood pressure is 90/51 with a pulse of 105, temperature of 98. She is 93% on 4 L nasal cannula. General description is an elderly female lying in bed in no distress. No tachypnea or accessory muscle of respiration use. HEENT examination shows no pallor or scleral icterus. Oral mucosa membrane is dry. LUNGS: Unlabored breathing. Clear to auscultation anteriorly. No wheeze or crackle. HEART: S1, S2. Regular rate and rhythm. ABDOMEN: Soft. No tenderness. EXTREMITIES: Some chronic swelling. No redness. LABS: Hemoglobin is 14.4, white count 21.4, BUN of 14, creatinine 0.74. Urine has been negative. Influenza serology was negative. Sputum culture is currently pending. Blood culture so far negative. DIAGNOSTIC IMPRESSION AND PLAN: Patient admitted to hospital with sepsis and septic shock with right upper lobe pneumonia, possibly gram-negative. The patient seems to have shown some response to Zosyn. That will be continued while waiting for the culture to finalize. Continue with supportive care. MMODL / IJN: [id number] /
[2018-04-26 04:43] LABS: Anion Gap 4 mmol/L; Blood Urea Nitrogen 11 mg/dL (7-17); Calcium 9.6 mg/dL (8.4-10.2); Carbon Dioxide 23 mmol/L (22-30); Chloride 111 mmol/L (98-107); Glucose 251 mg/dL (74-99); Phosphorus 2.8 mg/dL (2.5-4.5); Potassium 3.8 mmol/L (3.5-5.1); Sodium 138 mmol/L (137-145)
[2018-04-26] MEDS: PIPERACILLIN-TAZOBACTAM 3.375 GM in SODIUM CHLORIDE 0.9% 100 ML IVPB SCH ×3 (04:45→21:05)
[2018-04-26 04:46] LABS: Anisocytosis Slight; Basophils % (A) 0 %; Eosinophils % (A) 0 %; HCT 42.6 % (34.0-46.0); HGB 13.1 gm/dL (11.4-16.0); Hypochromasia Slight; Lymphocytes # (A) 1.3 k/uL (1.0-4.8); Lymphocytes % (A) 10 %; MCH 31.5 pg (25.0-35.0); MCHC 30.9 g/dL (31.0-37.0); Macrocytosis Slight; Mean Platelet Volume 8.1; Monocytes # (A) 0.5 k/uL (0-1.0); Monocytes % (A) 4 %; Neutrophils # (A) 11.5 k/uL (1.3-7.7); Neutrophils % (A) 86 %; Platelet Count 255 k/uL (150-450); RBC 4.18 m/uL (3.80-5.40); RDW 16.4 % (11.5-15.5); WBC 13.4 k/uL (3.8-10.6)
[2018-04-26] MEDS: LEVOTHYROXINE 100 MCG TAB PO SCH (06:20)
[2018-04-26 07:02] LABS: Glucose,Whole Blood 228 mg/dL (75-99)
[2018-04-26] MEDS: INSULIN ASPART 100 UNIT/ML 1 ML 10 ML VIAL SQ SCH ×4 (07:02→20:57)
--- NOTE | 2018-04-26 07:12 | XR ---
EXAMINATION TYPE: XR chest 1V DATE OF EXAM: 04/26/2018 HISTORY: Shortness of breath. COMPARISON: 04/25/2018 TECHNIQUE: Single view of the chest is submitted. FINDINGS: Demonstrated are scattered senescent parenchymal change. System patchy infiltrate right upper lobe and right lower lobe. Suspect small left-sided effusion. The heart is stable. Hilar and mediastinal structures are within normal limits. Degenerative changes are seen of the dorsal spine. Dislocation right shoulder IMPRESSION: 1. Stable chest.
[2018-04-26] MEDS: SODIUM CHLORIDE 0.9% 1,000 ML IV SCH ×2 (08:25→20:46)
[2018-04-26] MEDS: IPRATROPIUM-ALBUTEROL 3 ML NEB INHALATION SCH ×4 (08:29→21:19)
[2018-04-26] MEDS: DULoxetine HCL 30 MG CAPSULE.DR PO SCH ×2 (08:30→17:15)
[2018-04-26] MEDS: ALLOPURINOL 100 MG TAB PO SCH (08:30)
[2018-04-26] MEDS: HYDROCORTISONE SUCCINATE 100 MG/2 ML VIAL IV SCH ×2 (08:30→16:26)
[2018-04-26] MEDS: METOPROLOL TARTRATE 25 MG TAB PO SCH ×2 (08:30→16:21)
[2018-04-26] MEDS: NYSTATIN 100,000 UNIT/GM POWD 15 GM TOPICAL SCH ×2 (08:31→20:59)
[2018-04-26] MEDS: DICLOFENAC SODIUM GEL 100 GM TUBE TOPICAL SCH ×3 (08:31→20:58)
[2018-04-26] MEDS: PREGABALIN 100 MG CAP PO SCH ×2 (08:31→20:58)
[2018-04-26] MEDS: COLLAGENASE 250 UNIT/GM OINTMENT 30 GM TUBE TOPICAL SCH (08:31)
[2018-04-26] MEDS: LEVOFLOXACIN 750MG-D5W PMX 750 MG in DEXTROSE/WATER 1 150ML.BAG IVPB SCH (08:32)
[2018-04-26] MEDS: LINAGLIPTIN 5 MG TABLET PO SCH (08:32)
[2018-04-26] MEDS: SENNOSIDES-DOCUSATE SODIUM 1 EACH TAB PO SCH (08:32)
[2018-04-26] MEDS: PANTOPRAZOLE 40 MG/10 ML VIAL IV SCH (08:32)
--- NOTE | 2018-04-26 10:30 | P.PN ---
Subjective Progress Note Date: 04/26/18 Principal diagnosis: Acute septic shock, right upper lobe pneumonia This is a 72-year-old female, familiar to my service, patient was admitted to [facility] about a month and a half ago with acute urinary tract infection and sepsis. Patient was seen at the time by Dr. Medellin. She was treated for acute urinary tract infection, sepsis and septic shock. Eventually the patient responded well to treatment, did not require any intubation or mechanical ventilation. This time the patient had a similar presentation, she presented with weakness, altered mental status according to the , and upon presentation she was noted to be hypotensive and did not respond to 2 L of fluid boluses, and she was placed on norepinephrine. Patient was admitted to the ICU, and I was asked to see her on consultation. Presently she is on her third liter of fluid bolus, she is on norepinephrine at 2 mcg/kg/m , her labs showed evidence of leukocytosis with WBC count of 24.9. Electrolytes were normal. Lactic acid on presentation was 2.5 follow-up lactic was 2.0. Troponin was borderline elevated at 0.037. Her urinalysis was noted to be relatively unremarkable except for small leukocyte esterase. WBC count in the urine was only 6. At any rate her chest x-ray did show evidence ofdisease mostly involving the right upper lobe. Patient was admitted to the ICU, I saw her on consultation, and I recommended antibiotics in the form of vancomycin and cefepime, I also recommended continuing to norepinephrine. Placed on the ICU protocol for sepsis and septic shock, patient declined having a central line placement according to the ER physician. She has adequate peripheral IV access at present, and the dose of norepinephrine seems to be minimal. Patient was reevaluated today on 04/25/2018, doing much better today. She is off norepinephrine, and the relatively hemodynamically stable. Patient has good urine output, and she seems to be alert and oriented 3. Her mean arterial pressure remains a bit marginal, labs were reviewed WBC count is 21.4 hemoglobin is 14.4. Electrolytes are normal, bicarb is normal renal profile is normal. Troponin 0.072 yesterday. Chest x-ray shows nodular infiltrates in the right upper lobe and in the right lower lobe, there is definite right hilar fullness, but she had a previous CT angiogram of the chest showing the fullness is mostly vascular nature related to prominent right pulmonary artery. This was done in the last few months. Patient remains on her usual meds, Antibiotics segura she remains on Zosyn and Levaquin. Cultures are pending. Reevaluated today on 04/26/2018, patient went briefly last night for a couple of hours on norepinephrine small dose, however she has been off norepinephrine now for the last 6 hours, seems to be hemodynamically stable, patient is sitting in bed, asymptomatic, feels great, she has good urine output, intact mental status, and her labs were all reviewed. Her WBC count is down to 13.4, hemoglobin is 13.1 electrolytes are normal renal profile is normal. Chest x- ray is showing improvement in her right upper lobe infiltrate. Continues to have right hilar fullness. Objective - Vital Signs Vital signs: Vital Signs Temp 98.1 F 04/26/18 10:10 Pulse 104 H 04/26/18 10:10 Resp 16 04/26/18 10:10 BP 133/64 04/26/18 10:10 Pulse Ox 97 04/26/18 10:10 Intake & Output 04/25/18 04/26/18 04/26/18 18:59 06:59 18:59 Intake Total 1350 1600 250 Output Total 1065 1185 225 Balance 285 415 25 Weight 119.1 kg Intake: IV 1350 1300 250 Levofloxacin 750Mg-D5w 100 Pmx 750 mg In Dextrose/ Water 1 150ml.bag @ 100 mls/hr IVPB DAILY [facility] Rx# :[id number] Piperacillin-Tazobactam 3 150 200 50 .375 gm In Sodium Chloride 0.9% 100 ml @ 25 mls/hr IVPB Q8H [facility] Rx#: [id number] Sodium Chloride 0.9% 1, 1100 1100 200 000 ml @ 100 mls/hr IV . Q10H [facility] Rx#:[id number] Intake, IV Titration 0 Amount Norepinephrine 4 mg In 0 Sodium Chloride 0.9% 250 ml @ Titrate IV .Q0M [facility] Rx#:[id number] Oral 300 Output: Urine 1065 1185 225 Other: Voiding Method Indwelling Catheter Indwelling Catheter Indwelling Catheter - Exam Physical exam revealed a 72-year-old female, alert, oriented 3, Head: Atraumatic, normocephalic, moist mucous membranes . HEENT examination is grossly unremarkable. no JVD, no thyromegaly, no neck masses. Neck supple. Full range of motion. No adenopathy thyromegaly or neck vein distention. Cardiovascular examination reveals regular rhythm rate. S1-S2 normal. No S3 or S4. No discernible murmur noted. Lungs reveal clear breath sounds. Her sounds are equal bilaterally. No adventitious lung sounds including wheezes rhonchi or crackles. Abdomen soft bowel sounds are heard. No masses or tenderness.Abdominal exam revealed normal bowel sounds. The abdomen was soft, non-tender, and without masses, organomegaly, or appreciable enlargement of the abdominal aorta. Extremities are intact. No cyanosis clubbing. Small healed ulcer on the anterior surface of the right mid leg, there is trace edema lower extremities bilaterally. Pulses are diminished at the present. Skin is without rash or lesion. Neurologic examination is revealing normal mental status examination, alert oriented 3 today. Psychiatric: Normal mood, affect, and mental status examination basically normal today. - Labs CBC & Chem 7: 04/26/18 04:16 04/26/18 04:16 Labs: Abnormal Lab Results - Last 24 Hours (Table) 04/25/18 04/25/18 04/25/18 Range/Units 11:47 17:10 20:30 WBC (3.8-10.6) k/uL MCV (80.0-100.0) fL MCHC (31.0-37.0) g/dL RDW (11.5-15.5) % Neutrophils # (1.3-7.7) k/uL Chloride (98-107) mmol/L Glucose (74-99) mg/dL POC Glucose (mg/dL) 233 H 251 H 266 H (75-99) mg/dL 04/26/18 04/26/18 04/26/18 Range/Units 04:16 04:16 07:00 WBC 13.4 H (3.8-10.6) k/uL MCV 102.0 H (80.0-100.0) fL MCHC 30.9 L (31.0-37.0) g/dL RDW 16.4 H (11.5-15.5) % Neutrophils # 11.5 H (1.3-7.7) k/uL Chloride 111 H (98-107) mmol/L Glucose 251 H (74-99) mg/dL POC Glucose (mg/dL) 228 H (75-99) mg/dL Microbiology - Last 24 Hours (Table) 04/25/18 07:32 Gram Stain - Preliminary Sputum 04/24/18 09:23 Blood Culture - Preliminary Blood No Growth after 24 hours 04/24/18 10:09 Urine Culture - Final Urine,Catheterized Assessment and Plan Assessment: Impression: 1 acute sepsis and septic shock, most likely source is right upper lobe pneumonia, likely healthcare acquired pneumonia patient was recently in rehab, and prior to that she was inpatient. 2 acute right upper lobe pneumonia as noted above, likely healthcare acquired. 3 morbid obesity, BMI of 48.8. 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 14 poor performance status. 15 acute metabolic encephalopathy resolved over the last 24 hours. Recommendation: Continue present antibiotics, continue supportive care measures , GI and DVT prophylaxis, cut down the dose of Solu-Cortef, arrange for patient to transfer out of the ICU to a regular medical floor, will continue to follow. Time with Patient: Less than 30
[2018-04-26 12:03] LABS: Glucose,Whole Blood 238 mg/dL (75-99)
[2018-04-26] MEDS: ATORVASTATIN 40 MG TAB PO SCH (16:21)
[2018-04-26] MEDS: ASPIRIN 81 MG PO SCH (16:21)
[2018-04-26] MEDS: FERROUS SULFATE 325 MG TAB PO SCH (16:21)
--- NOTE | 2018-04-26 16:23 | P.PN ---
Subjective this is a pleasant 72 years old female with past medical history of diabetes mellitus hyperlipidemia hypertension, DVT/PE, rheumatoid arthritis, hypothyroidism, COPD, chronic hypoxic respiratory failure on home oxygen.presents with dyspnea. Patient was found to be in severe sepsis and septic shock secondary to pneumonia.today patient she feels better no worsening dyspnea. No chest pain. she complains from constipation. Has a Blandon catheter. She still on oxygen therapyand she saturating 94% on 2 LWBC 13.4. Creatinine 0.6. Sugar is slightly elevated. Objective - Vital Signs Vital signs: Vital Signs Temp 98.1 F 04/26/18 10:10 Pulse 104 H 04/26/18 10:10 Resp 16 04/26/18 10:10 BP 133/64 04/26/18 10:10 Pulse Ox 97 04/26/18 10:10 Intake & Output 04/25/18 04/26/18 04/26/18 18:59 06:59 18:59 Intake Total 1350 1600 250 Output Total 1065 1185 1125 Balance 285 415 -875 Weight 119.1 kg Intake: IV 1350 1300 250 Levofloxacin 750Mg-D5w 100 Pmx 750 mg In Dextrose/ Water 1 150ml.bag @ 100 mls/hr IVPB DAILY [facility] Rx# :[id number] Piperacillin-Tazobactam 3 150 200 50 .375 gm In Sodium Chloride 0.9% 100 ml @ 25 mls/hr IVPB Q8H [facility] Rx#: [id number] Sodium Chloride 0.9% 1, 1100 1100 200 000 ml @ 100 mls/hr IV . Q10H [facility] Rx#:[id number] Intake, IV Titration 0 Amount Norepinephrine 4 mg In 0 Sodium Chloride 0.9% 250 ml @ Titrate IV .Q0M [facility] Rx#:[id number] Oral 300 Output: Urine 1065 1185 1125 Uretheral (Blandon) 725 Other: Voiding Method Indwelling Catheter Indwelling Catheter Indwelling Catheter - Exam GENERAL: The patient is alert and oriented x3, not in any acute distress. Well developed, well nourished. HEENT: Pupils are round and equally reacting to light. EOMI. No scleral icterus. No conjunctival pallor. Normocephalic, atraumatic. No pharyngeal erythema. No thyromegaly. CARDIOVASCULAR: S1 and S2 present. No murmurs, rubs, or gallops. -PULMONARY: Chest is clear to auscultation, no crackles. bilateral scattered wheezing ABDOMEN: Soft, nontender, nondistended, normoactive bowel sounds. No palpable organomegaly. MUSCULOSKELETAL: No joint swelling or deformity. EXTREMITIES: No cyanosis, clubbing, or pedal edema. NEUROLOGICAL: Gross neurological examination did not reveal any focal deficits. SKIN: No rashes. - Labs CBC & Chem 7: 04/26/18 04:16 04/26/18 04:16 Labs: Abnormal Lab Results - Last 24 Hours (Table) 04/25/18 04/25/18 04/26/18 Range/Units 17:10 20:30 04:16 WBC 13.4 H (3.8-10.6) k/uL MCV 102.0 H (80.0-100.0) fL MCHC 30.9 L (31.0-37.0) g/dL RDW 16.4 H (11.5-15.5) % Neutrophils # 11.5 H (1.3-7.7) k/uL Chloride (98-107) mmol/L Glucose (74-99) mg/dL POC Glucose (mg/dL) 251 H 266 H (75-99) mg/dL 04/26/18 04/26/18 04/26/18 Range/Units 04:16 07:00 11:51 WBC (3.8-10.6) k/uL MCV (80.0-100.0) fL MCHC (31.0-37.0) g/dL RDW (11.5-15.5) % Neutrophils # (1.3-7.7) k/uL Chloride 111 H (98-107) mmol/L Glucose 251 H (74-99) mg/dL POC Glucose (mg/dL) 228 H 238 H (75-99) mg/dL Microbiology - Last 24 Hours (Table) 04/25/18 07:32 Gram Stain - Preliminary Sputum Sputum Culture - Preliminary Gram Neg Bacilli Luann albicans 04/24/18 09:23 Blood Culture - Preliminary Blood No Growth after 48 hours Assessment and Plan Assessment: status post septic shock and severe sepsis presumably on admission community acquired pneumonia history of COPD,, not in acute exacerbation History of PE/DVT on anticoagulation. Constipation History of hypothyroidism Hyperlipidemia History of gout Plan: this is a pleasant 72 years old female who presents with pneumonia. Pulmonary R following the case. Continue with IV antibiotic. Continue with a breathing treatment and oxygen therapy. Labs and medication were reviewed.. Continue same treatment. Continue with symptomatic treatment. Resume home medication. Monitor lytes and vitals. DVT and GI prophylaxis. Further recommendations of the clinical course of the patient DVT prophylaxis: xarelto GI Prophylaxis: Protonix Prognosis is guarded
[2018-04-26 17:08] LABS: Glucose,Whole Blood 221 mg/dL (75-99)
[2018-04-26] MEDS: RIVAROXABAN 20 MG TAB PO SCH (17:15)
[2018-04-26] MEDS: INSULIN DETEMIR 100 UNIT/ML 10 ML VIAL SQ SCH (20:57)
[2018-04-26 21:21] LABS: Glucose,Whole Blood 236 mg/dL (75-99)
[2018-04-27] MEDS: HYDROCORTISONE SUCCINATE 100 MG/2 ML VIAL IV SCH ×2 (02:01→07:56)
[2018-04-27] MEDS: SODIUM CHLORIDE 0.9% 1,000 ML IV SCH ×2 (04:39→15:08)
[2018-04-27] MEDS: PIPERACILLIN-TAZOBACTAM 3.375 GM in SODIUM CHLORIDE 0.9% 100 ML IVPB SCH ×3 (04:40→21:47)
[2018-04-27] MEDS: LEVOTHYROXINE 100 MCG TAB PO SCH (06:00)
[2018-04-27 07:29] LABS: Glucose,Whole Blood 184 mg/dL (75-99)
[2018-04-27] MEDS: INSULIN ASPART 100 UNIT/ML 1 ML 10 ML VIAL SQ SCH ×4 (07:55→21:09)
[2018-04-27] MEDS: PANTOPRAZOLE 40 MG/10 ML VIAL IV SCH (07:56)
[2018-04-27] MEDS: SENNOSIDES-DOCUSATE SODIUM 1 EACH TAB PO SCH (07:57)
[2018-04-27] MEDS: LINAGLIPTIN 5 MG TABLET PO SCH (07:59)
[2018-04-27] MEDS: ALLOPURINOL 100 MG TAB PO SCH (07:59)
[2018-04-27] MEDS: DULoxetine HCL 30 MG CAPSULE.DR PO SCH ×2 (08:00→21:05)
[2018-04-27] MEDS: PREGABALIN 100 MG CAP PO SCH ×2 (08:12→21:05)
[2018-04-27] MEDS: METOPROLOL TARTRATE 25 MG TAB PO SCH ×2 (08:13→18:01)
[2018-04-27 08:16] LABS: Anisocytosis Slight; Basophils % (A) 0 %; Eosinophils % (A) 0 %; HGB 13.5 gm/dL (11.4-16.0); Hypochromasia Slight; Lymphocytes # (A) 1.4 k/uL (1.0-4.8); Lymphocytes % (A) 13 %; MCH 31.6 pg (25.0-35.0); MCHC 30.7 g/dL (31.0-37.0); MCV 102.8 fL (80.0-100.0); Macrocytosis Moderate; Mean Platelet Volume 7.9; Monocytes # (A) 0.4 k/uL (0-1.0); Monocytes % (A) 4 %; Neutrophils # (A) 8.8 k/uL (1.3-7.7); Neutrophils % (A) 82 %; Platelet Count 291 k/uL (150-450); RBC 4.28 m/uL (3.80-5.40); RDW 16.5 % (11.5-15.5); WBC 10.8 k/uL (3.8-10.6)
[2018-04-27 08:33] LABS: Anion Gap 5 mmol/L; Blood Urea Nitrogen 9 mg/dL (7-17); Carbon Dioxide 23 mmol/L (22-30); Chloride 113 mmol/L (98-107); Glucose 188 mg/dL (74-99); Potassium 3.9 mmol/L (3.5-5.1); Sodium 141 mmol/L (137-145)
--- NOTE | 2018-04-27 09:10 | PN ---
PROGRESS NOTE DATE OF SERVICE: 04/26/2018. REASON FOR FOLLOWUP: Gram-negative pneumonia. INTERVAL HISTORY: The patient is currently afebrile. She is breathing more comfortably. Denies significant chest pain. She did have some cough, but not bringing up any sputum. No nausea, no vomiting. No abdominal pain. No diarrhea. EXAMINATION: Blood pressure 130/63 with a pulse of 91, temperature of 98.3, she is 95% on 5 L nasal cannula. General description is an elderly female lying in bed in no distress. Respiratory system: Unlabored breathing with coarse breath sounds in the base. No wheeze. Heart S1, S2. Regular rate and rhythm. Abdomen soft, no tenderness. LABS: Hemoglobin is 13.1, white count 13.4 with a BUN of 11, creatinine 0.66. Sputum showing a gram-negative bacilli and Luann albicans. DIAGNOSTIC IMPRESSION AND PLAN: Patient with right upper lobe pneumonia with secondary sepsis. The patient has shown clinical and improvement. Patient at this time to continue with Zosyn while waiting for the cultures to finalize. Continue supportive care. MMODL / IJN: [id number] /
[2018-04-27] MEDS: IPRATROPIUM-ALBUTEROL 3 ML NEB INHALATION SCH ×4 (09:26→21:13)
[2018-04-27 13:02] LABS: Glucose,Whole Blood 286 mg/dL (75-99)
[2018-04-27] MEDS: COLLAGENASE 250 UNIT/GM OINTMENT 30 GM TUBE TOPICAL SCH (13:14)
[2018-04-27] MEDS: LEVOFLOXACIN 750MG-D5W PMX 750 MG in DEXTROSE/WATER 1 150ML.BAG IVPB SCH (13:15)
--- NOTE | 2018-04-27 14:14 | P.PN ---
Subjective Progress Note Date: 04/27/18 Principal diagnosis: Acute septic shock, right upper lobe pneumonia This is a 72-year-old female, familiar to my service, patient was admitted to [facility] about a month and a half ago with acute urinary tract infection and sepsis. Patient was seen at the time by Dr. Medellin. She was treated for acute urinary tract infection, sepsis and septic shock. Eventually the patient responded well to treatment, did not require any intubation or mechanical ventilation. This time the patient had a similar presentation, she presented with weakness, altered mental status according to the , and upon presentation she was noted to be hypotensive and did not respond to 2 L of fluid boluses, and she was placed on norepinephrine. Patient was admitted to the ICU, and I was asked to see her on consultation. Presently she is on her third liter of fluid bolus, she is on norepinephrine at 2 mcg/kg/m , her labs showed evidence of leukocytosis with WBC count of 24.9. Electrolytes were normal. Lactic acid on presentation was 2.5 follow-up lactic was 2.0. Troponin was borderline elevated at 0.037. Her urinalysis was noted to be relatively unremarkable except for small leukocyte esterase. WBC count in the urine was only 6. At any rate her chest x-ray did show evidence ofdisease mostly involving the right upper lobe. Patient was admitted to the ICU, I saw her on consultation, and I recommended antibiotics in the form of vancomycin and cefepime, I also recommended continuing to norepinephrine. Placed on the ICU protocol for sepsis and septic shock, patient declined having a central line placement according to the ER physician. She has adequate peripheral IV access at present, and the dose of norepinephrine seems to be minimal. Patient was reevaluated today on 04/25/2018, doing much better today. She is off norepinephrine, and the relatively hemodynamically stable. Patient has good urine output, and she seems to be alert and oriented 3. Her mean arterial pressure remains a bit marginal, labs were reviewed WBC count is 21.4 hemoglobin is 14.4. Electrolytes are normal, bicarb is normal renal profile is normal. Troponin 0.072 yesterday. Chest x-ray shows nodular infiltrates in the right upper lobe and in the right lower lobe, there is definite right hilar fullness, but she had a previous CT angiogram of the chest showing the fullness is mostly vascular nature related to prominent right pulmonary artery. This was done in the last few months. Patient remains on her usual meds, Antibiotics segura she remains on Zosyn and Levaquin. Cultures are pending. Reevaluated today on 04/26/2018, patient went briefly last night for a couple of hours on norepinephrine small dose, however she has been off norepinephrine now for the last 6 hours, seems to be hemodynamically stable, patient is sitting in bed, asymptomatic, feels great, she has good urine output, intact mental status, and her labs were all reviewed. Her WBC count is down to 13.4, hemoglobin is 13.1 electrolytes are normal renal profile is normal. Chest x- ray is showing improvement in her right upper lobe infiltrate. Continues to have right hilar fullness. On 04/27/2018 patient seen in follow-up on medical surgical floor. She is awake and alert, oriented 3, no acute distress, no dyspnea, no chest pain. No fever no chills. Occasional cough, nonproductive. 5 L per nasal cannula pulse ox is 92%, sputum culture were positive for Klebsiella pneumoniae to both Levaquin and Zosyn. Lung sounds are positive for a few scattered rales at the bases, and anterior upper lobes. Clinically patient is improving, last chest x- ray was done yesterday, and showed patchy infiltrate in the right upper lobe and right lower lobe and a small left-sided pleural effusion. Lab work reviewed , WBC is trending down, today is 10.8, hemoglobin is 13.5, electrolytes and renal profile are unremarkable Objective - Vital Signs Vital signs: Vital Signs Temp 98.5 F 04/27/18 07:00 Pulse 92 04/27/18 12:41 Resp 16 04/27/18 12:41 BP 145/68 04/27/18 07:00 Pulse Ox 92 L 04/27/18 07:00 Intake & Output 04/26/18 04/27/18 04/27/18 18:59 06:59 18:59 Intake Total 250 250 Output Total 1125 Balance -875 250 Weight 119.1 kg Intake: IV 250 Piperacillin-Tazobactam 3 50 .375 gm In Sodium Chloride 0.9% 100 ml @ 25 mls/hr IVPB Q8H [facility] Rx#: [id number] Sodium Chloride 0.9% 1, 200 000 ml @ 100 mls/hr IV . Q10H [facility] Rx#:[id number] Oral 250 Output: Urine 1125 Uretheral (Blandon) 725 Other: Voiding Method Indwelling Catheter Indwelling Catheter - Exam Physical exam revealed a 72-year-old female, alert, oriented 3, Head: Atraumatic, normocephalic, moist mucous membranes . HEENT examination is grossly unremarkable. no JVD, no thyromegaly, no neck masses. Neck supple. Full range of motion. No adenopathy thyromegaly or neck vein distention. Cardiovascular examination reveals regular rhythm rate. S1-S2 normal. No S3 or S4. No discernible murmur noted. Lungs reveal clear breath sounds. Her sounds are equal bilaterally. Some limited crackles at the bases, and anterior upper lobes Abdomen soft bowel sounds are heard. No masses or tenderness.Abdominal exam revealed normal bowel sounds. The abdomen was soft, non-tender, and without masses, organomegaly, or appreciable enlargement of the abdominal aorta. Extremities are intact. No cyanosis clubbing. Small healed ulcer on the anterior surface of the right mid leg, there is trace edema lower extremities bilaterally. Pulses are diminished at the present. Skin is without rash or lesion. Neurologic examination is revealing normal mental status examination, alert oriented 3 today. Psychiatric: Normal mood, affect, and mental status examination basically normal today. - Labs CBC & Chem 7: 04/27/18 06:50 04/27/18 06:50 Labs: Abnormal Lab Results - Last 24 Hours (Table) 04/26/18 04/26/18 04/27/18 Range/Units 16:56 20:51 06:50 WBC 10.8 H (3.8-10.6) k/uL MCV 102.8 H (80.0-100.0) fL MCHC 30.7 L (31.0-37.0) g/dL RDW 16.5 H (11.5-15.5) % Neutrophils # 8.8 H (1.3-7.7) k/uL Chloride (98-107) mmol/L Glucose (74-99) mg/dL POC Glucose (mg/dL) 221 H 236 H (75-99) mg/dL 04/27/18 04/27/18 04/27/18 Range/Units 06:50 07:17 12:49 WBC (3.8-10.6) k/uL MCV (80.0-100.0) fL MCHC (31.0-37.0) g/dL RDW (11.5-15.5) % Neutrophils # (1.3-7.7) k/uL Chloride 113 H (98-107) mmol/L Glucose 188 H (74-99) mg/dL POC Glucose (mg/dL) 184 H 286 H (75-99) mg/dL Microbiology - Last 24 Hours (Table) 04/24/18 09:23 Blood Culture - Preliminary Blood No Growth after 72 hours 04/25/18 07:32 Gram Stain - Final Sputum Sputum Culture - Final Klebsiella pneumoniae Luann albicans Assessment and Plan Plan: 1 acute sepsis and septic shock, most likely source is right upper lobe pneumonia, likely healthcare acquired pneumonia patient was recently in rehab, and prior to that she was inpatient. 2 acute right upper lobe pneumonia as noted above, likely healthcare acquired. 3 morbid obesity, BMI of 48.8. 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 14 poor performance status. 15 acute metabolic encephalopathy resolved over the last 24 hours. Plan: Continue current antibiotic coverage, nebulized bronchodilators, encourage patient to set up in the chair, increase activity as tolerated. The patient continues to improve, no fever no chills, no worsening shortness of breath, no chest pain, no hemoptysis. Klebsiella pneumoniae has been isolated in the sputum specimen, sensitive to both antibiotics patient currently on. Continue to follow I performed a history & physical examination of the patient and discussed their management with my nurse practitioner, Adeline Villalobos. I reviewed the nurse practitioner's note and agree with the documented findings and plan of care. Lung sounds are some limited crackles at the bases, and anterior upper lobes. The findings and the impression was discussed with the patient. I attest to the documentation by the nurse practitioner. Time with Patient: Less than 30
[2018-04-27 14:35] LABS: Glucose,Whole Blood 315 mg/dL (75-99)
[2018-04-27] MEDS: DICLOFENAC SODIUM GEL 100 GM TUBE TOPICAL SCH ×3 (15:07→21:05)
[2018-04-27] MEDS: NYSTATIN 100,000 UNIT/GM POWD 15 GM TOPICAL SCH ×2 (15:08→21:06)
[2018-04-27 15:44] LABS: Anisocytosis Slight; Basophils % (A) 0 %; Eosinophils % (A) 0 %; HCT 40.7 % (34.0-46.0); HGB 13.2 gm/dL (11.4-16.0); Hypochromasia Slight; Lymphocytes # (A) 1.1 k/uL (1.0-4.8); Lymphocytes % (A) 10 %; MCHC 32.5 g/dL (31.0-37.0); MCV 101.5 fL (80.0-100.0); Macrocytosis Slight; Mean Platelet Volume 8.5; Monocytes # (A) 0.6 k/uL (0-1.0); Monocytes % (A) 5 %; Neutrophils # (A) 9.7 k/uL (1.3-7.7); Neutrophils % (A) 84 %; Platelet Count 236 k/uL (150-450); RDW 16.3 % (11.5-15.5); WBC 11.5 k/uL (3.8-10.6)
--- NOTE | 2018-04-27 16:51 | P.PN ---
Subjective this is a pleasant 72 years old female with past medical history of diabetes mellitus hyperlipidemia hypertension, DVT/PE, rheumatoid arthritis, hypothyroidism, COPD, chronic hypoxic respiratory failure on home oxygen.presents with dyspnea. Patient was found to be in severe sepsis and septic shock secondary to pneumonia.today patient she feels better no worsening dyspnea. No chest pain. she complains from constipation. Has a Blandon catheter. She still on oxygen therapyand she saturating 94% on 2 LWBC 13.4. Creatinine 0.6. Sugar is slightly elevated. 04/27/2018 Patient had an episode of bloody bowel movement today, without change in her vitals. Her hemoglobin remains stable at 13.2. However her occult blood in his stool is positive. Staff this but the stool also. Patient states she had similar episode about 2 weeks ago . patient today dose of xarelto was held. And we are going to check her hemoglobin tomorrow and if stable will might consider restarting it. GI consult is placed. Increase Protonix to twice a day. Discussed with the pulmonary team and they agreed to down great her Cortef from IV to by mouth 20 mg twice a day. Patient remains on levofloxacin. Patient denies chest pain. No dyspnea. She has a cough with phlegm. Terminal pain. No nausea vomiting. Patient states at home she uses oxygen at 3 L, currently is at 5 L. CONSTITUTIONAL: No fever, no malaise, no fatigue. HEENT: No recent visual problems or hearing problems. Denied any sore throat. CARDIOVASCULAR: no syncope. PULMONARY: no hemoptysis. GASTROINTESTINAL: Normoactive bowel sounds. NEUROLOGICAL: No headaches, no weakness, no numbness. HEMATOLOGICAL: Denies any bleeding or petechiae. GENITOURINARY: Denies any burning micturition, frequency, or urgency. MUSCULOSKELETAL/RHEUMATOLOGICAL: Denies any joint pain, swelling, or any muscle pain. ENDOCRINE: Denies any polyuria or polydipsia. Objective - Vital Signs Vital signs: Vital Signs Temp 98.4 F 04/27/18 15:00 Pulse 91 04/27/18 15:00 Resp 16 04/27/18 15:00 BP 129/72 04/27/18 15:00 Pulse Ox 94 L 04/27/18 15:00 Intake & Output 04/26/18 04/27/18 04/27/18 18:59 06:59 18:59 Intake Total 250 700 Output Total 1125 Balance -875 700 Weight 119.1 kg Intake: IV 250 Piperacillin-Tazobactam 3 50 .375 gm In Sodium Chloride 0.9% 100 ml @ 25 mls/hr IVPB Q8H [facility] Rx#: [id number] Sodium Chloride 0.9% 1, 200 000 ml @ 100 mls/hr IV . Q10H [facility] Rx#:[id number] Oral 700 Output: Urine 1125 Uretheral (Blandon) 725 Other: Voiding Method Indwelling Catheter Indwelling Catheter # Bowel Movements 1 - Exam GENERAL: The patient is alert and oriented x3, not in any acute distress. Well developed, well nourished. HEENT: Pupils are round and equally reacting to light. EOMI. No scleral icterus. No conjunctival pallor. Normocephalic, atraumatic. No pharyngeal erythema. No thyromegaly. CARDIOVASCULAR: S1 and S2 present. No murmurs, rubs, or gallops. -PULMONARY: Chest is clear to auscultation, no crackles. bilateral scattered wheezing ABDOMEN: Soft, nontender, nondistended, normoactive bowel sounds. No palpable organomegaly. MUSCULOSKELETAL: No joint swelling or deformity. EXTREMITIES: No cyanosis, clubbing, or pedal edema. NEUROLOGICAL: Gross neurological examination did not reveal any focal deficits. SKIN: No rashes. - Labs CBC & Chem 7: 04/27/18 15:00 04/27/18 06:50 Labs: Abnormal Lab Results - Last 24 Hours (Table) 04/26/18 04/26/18 04/27/18 Range/Units 16:56 20:51 06:50 WBC 10.8 H (3.8-10.6) k/uL MCV 102.8 H (80.0-100.0) fL MCHC 30.7 L (31.0-37.0) g/dL RDW 16.5 H (11.5-15.5) % Neutrophils # 8.8 H (1.3-7.7) k/uL Chloride (98-107) mmol/L Glucose (74-99) mg/dL POC Glucose (mg/dL) 221 H 236 H (75-99) mg/dL Stool Occult Blood (Negative) 04/27/18 04/27/18 04/27/18 Range/Units 06:50 07:17 12:49 WBC (3.8-10.6) k/uL MCV (80.0-100.0) fL MCHC (31.0-37.0) g/dL RDW (11.5-15.5) % Neutrophils # (1.3-7.7) k/uL Chloride 113 H (98-107) mmol/L Glucose 188 H (74-99) mg/dL POC Glucose (mg/dL) 184 H 286 H (75-99) mg/dL Stool Occult Blood (Negative) 04/27/18 04/27/18 04/27/18 Range/Units 14:24 15:00 15:00 WBC 11.5 H (3.8-10.6) k/uL MCV 101.5 H (80.0-100.0) fL MCHC (31.0-37.0) g/dL RDW 16.3 H (11.5-15.5) % Neutrophils # 9.7 H (1.3-7.7) k/uL Chloride (98-107) mmol/L Glucose (74-99) mg/dL POC Glucose (mg/dL) 315 H (75-99) mg/dL Stool Occult Blood Positive H (Negative) Microbiology - Last 24 Hours (Table) 04/24/18 09:23 Blood Culture - Preliminary Blood No Growth after 72 hours 04/25/18 07:32 Gram Stain - Final Sputum Sputum Culture - Final Klebsiella pneumoniae Luann albicans Assessment and Plan Assessment: status post septic shock and severe sepsis presumably on admission community acquired pneumonia Possible GI bleed history of COPD,, not in acute exacerbation History of PE/DVT on anticoagulation. Constipation History of hypothyroidism Hyperlipidemia History of gout Plan: this is a pleasant 72 years old female who presents with pneumonia. Pulmonary R following the case. Continue with IV antibiotic. Continue with a breathing treatment and oxygen therapy. Consult gastroenterology. Labs and medication were reviewed.. Continue same treatment. Continue with symptomatic treatment. Resume home medication. Monitor lytes and vitals. DVT and GI prophylaxis. Further recommendations of the clinical course of the patient DVT prophylaxis: xarelto GI Prophylaxis: Protonix Prognosis is guarded
[2018-04-27 17:08] LABS: Glucose,Whole Blood 243 mg/dL (75-99)
[2018-04-27] MEDS: ASPIRIN 81 MG PO SCH (18:01)
[2018-04-27] MEDS: ATORVASTATIN 40 MG TAB PO SCH (18:02)
[2018-04-27] MEDS: FERROUS SULFATE 325 MG TAB PO SCH (18:02)
[2018-04-27] MEDS: RIVAROXABAN 20 MG TAB PO SCH (18:02)
[2018-04-27 19:58] LABS: Glucose,Whole Blood 242 mg/dL (75-99)
[2018-04-27] MEDS ORDERED: HYDROCORTISONE SUCCINATE 100 MG/2 ML VIAL IV SCH (21:00)
[2018-04-27] MEDS: HYDROCORTISONE 20 MG TAB PO SCH (21:05)
[2018-04-27] MEDS: INSULIN DETEMIR 100 UNIT/ML 10 ML VIAL SQ SCH (21:09)
[2018-04-28] MEDS: SODIUM CHLORIDE 0.9% 1,000 ML IV SCH ×3 (02:07→23:22)
--- NOTE | 2018-04-28 02:22 | PN ---
PROGRESS NOTE DATE OF SERVICE: 04/27/2018. REASON FOR FOLLOWUP: Gram-negative pneumonia. INTERVAL HISTORY: The patient is afebrile. She has been breathing more comfortably. The patient denies significant chest pain. Cough has decreased in intensity. No nausea. No pain. No abdominal pain. No diarrhea. EXAMINATION: Blood pressure 129/66, pulse of 90, temperature 98.1, she is 92% on room air. General description is an elderly female up in the bed in no distress. Respiratory system unlabored breathing with decreased breath sounds in the base, with no wheeze. Heart S1, S2. Regular rate and rhythm. ABDOMEN: Soft, no tenderness. LABS: Hemoglobin is 13.8, white count of 11.5. DIAGNOSTIC IMPRESSION AND PLAN: Patient admitted to the hospital with sepsis. Source is gram-negative pneumonia. Sputum has been finalized Klebsiella sensitive to Zosyn and Levaquin. finish therapy with oral antibiotic on discharge. Continue supportive care. MMODL / IJN: [id number] /
[2018-04-28] MEDS: PIPERACILLIN-TAZOBACTAM 3.375 GM in SODIUM CHLORIDE 0.9% 100 ML IVPB SCH ×3 (04:08→20:49)
[2018-04-28] MEDS: LEVOTHYROXINE 100 MCG TAB PO SCH (07:32)
[2018-04-28] MEDS: PANTOPRAZOLE 40 MG TABLET PO SCH (07:33)
[2018-04-28 07:36] LABS: Glucose,Whole Blood 160 mg/dL (75-99)
[2018-04-28] MEDS: INSULIN ASPART 100 UNIT/ML 1 ML 10 ML VIAL SQ SCH ×4 (07:36→20:53)
[2018-04-28 09:00] LABS: Anisocytosis Slight; Basophils % (A) 0 %; Eosinophils # (A) 0.1 k/uL (0-0.7); Eosinophils % (A) 1 %; HCT 42.5 % (34.0-46.0); HGB 13.2 gm/dL (11.4-16.0); Hypochromasia Slight; Lymphocytes # (A) 3.2 k/uL (1.0-4.8); Lymphocytes % (A) 32 %; MCH 31.5 pg (25.0-35.0); MCV 101.8 fL (80.0-100.0); Macrocytosis Slight; Mean Platelet Volume 7.8; Monocytes # (A) 0.7 k/uL (0-1.0); Monocytes % (A) 7 %; Neutrophils # (A) 5.7 k/uL (1.3-7.7); Neutrophils % (A) 58 %; Platelet Count 281 k/uL (150-450); RBC 4.18 m/uL (3.80-5.40); RDW 16.7 % (11.5-15.5); WBC 9.9 k/uL (3.8-10.6)
[2018-04-28] MEDS: IPRATROPIUM-ALBUTEROL 3 ML NEB INHALATION SCH ×4 (09:05→21:07)
[2018-04-28 09:23] LABS: Anion Gap 4 mmol/L; Blood Urea Nitrogen 9 mg/dL (7-17); Calcium 9.8 mg/dL (8.4-10.2); Carbon Dioxide 24 mmol/L (22-30); Chloride 112 mmol/L (98-107); Glucose 210 mg/dL (74-99); Phosphorus 2.6 mg/dL (2.5-4.5); Potassium 3.4 mmol/L (3.5-5.1); Sodium 140 mmol/L (137-145)
[2018-04-28] MEDS: LEVOFLOXACIN 750MG-D5W PMX 750 MG in DEXTROSE/WATER 1 150ML.BAG IVPB SCH (09:44)
[2018-04-28] MEDS: DULoxetine HCL 30 MG CAPSULE.DR PO SCH ×2 (09:44→16:55)
[2018-04-28] MEDS: HYDROCORTISONE 20 MG TAB PO SCH ×2 (09:45→20:53)
[2018-04-28] MEDS: METOPROLOL TARTRATE 25 MG TAB PO SCH ×2 (09:45→16:55)
[2018-04-28] MEDS: SENNOSIDES-DOCUSATE SODIUM 1 EACH TAB PO SCH (09:45)
[2018-04-28] MEDS: ALLOPURINOL 100 MG TAB PO SCH (09:45)
[2018-04-28] MEDS: PREGABALIN 100 MG CAP PO SCH ×3 (09:45→20:53)
[2018-04-28] MEDS: LINAGLIPTIN 5 MG TABLET PO SCH (09:45)
[2018-04-28] MEDS: DICLOFENAC SODIUM GEL 100 GM TUBE TOPICAL SCH ×3 (09:51→23:22)
[2018-04-28] MEDS: COLLAGENASE 250 UNIT/GM OINTMENT 30 GM TUBE TOPICAL SCH (09:54)
[2018-04-28] MEDS: NYSTATIN 100,000 UNIT/GM POWD 15 GM TOPICAL SCH ×2 (09:54→23:22)
[2018-04-28 12:20] LABS: Glucose,Whole Blood 195 mg/dL (75-99)
--- NOTE | 2018-04-28 12:56 | P.PN ---
Subjective Progress Note Date: 04/28/18 Principal diagnosis: Acute septic shock, right upper lobe pneumonia This is a 72-year-old female, familiar to my service, patient was admitted to [facility] about a month and a half ago with acute urinary tract infection and sepsis. Patient was seen at the time by Dr. Medellin. She was treated for acute urinary tract infection, sepsis and septic shock. Eventually the patient responded well to treatment, did not require any intubation or mechanical ventilation. This time the patient had a similar presentation, she presented with weakness, altered mental status according to the , and upon presentation she was noted to be hypotensive and did not respond to 2 L of fluid boluses, and she was placed on norepinephrine. Patient was admitted to the ICU, and I was asked to see her on consultation. Presently she is on her third liter of fluid bolus, she is on norepinephrine at 2 mcg/kg/m , her labs showed evidence of leukocytosis with WBC count of 24.9. Electrolytes were normal. Lactic acid on presentation was 2.5 follow-up lactic was 2.0. Troponin was borderline elevated at 0.037. Her urinalysis was noted to be relatively unremarkable except for small leukocyte esterase. WBC count in the urine was only 6. At any rate her chest x-ray did show evidence ofdisease mostly involving the right upper lobe. Patient was admitted to the ICU, I saw her on consultation, and I recommended antibiotics in the form of vancomycin and cefepime, I also recommended continuing to norepinephrine. Placed on the ICU protocol for sepsis and septic shock, patient declined having a central line placement according to the ER physician. She has adequate peripheral IV access at present, and the dose of norepinephrine seems to be minimal. Patient was reevaluated today on 04/25/2018, doing much better today. She is off norepinephrine, and the relatively hemodynamically stable. Patient has good urine output, and she seems to be alert and oriented 3. Her mean arterial pressure remains a bit marginal, labs were reviewed WBC count is 21.4 hemoglobin is 14.4. Electrolytes are normal, bicarb is normal renal profile is normal. Troponin 0.072 yesterday. Chest x-ray shows nodular infiltrates in the right upper lobe and in the right lower lobe, there is definite right hilar fullness, but she had a previous CT angiogram of the chest showing the fullness is mostly vascular nature related to prominent right pulmonary artery. This was done in the last few months. Patient remains on her usual meds, Antibiotics segura she remains on Zosyn and Levaquin. Cultures are pending. Reevaluated today on 04/26/2018, patient went briefly last night for a couple of hours on norepinephrine small dose, however she has been off norepinephrine now for the last 6 hours, seems to be hemodynamically stable, patient is sitting in bed, asymptomatic, feels great, she has good urine output, intact mental status, and her labs were all reviewed. Her WBC count is down to 13.4, hemoglobin is 13.1 electrolytes are normal renal profile is normal. Chest x- ray is showing improvement in her right upper lobe infiltrate. Continues to have right hilar fullness. Reevaluated today on 04/28/2018, patient is now on medical floor, doing well, relatively asymptomatic, in no form of distress. Labs were reviewed, her potassium is a bit low being corrected as per protocol. CBC is normal. Patient is hemodynamically stable, denies any active pulmonary symptoms. Her last chest x-ray was showing improvement in her right upper lobe pneumonia, and I plan to repeat the chest x-ray tomorrow, if continues to improve consider discharging the patient home on antibiotics for Klebsiella pneumonia infection. Patient is already on oral Cortef to replace her Solu-Cortef Objective - Vital Signs Vital signs: Vital Signs Temp 98.7 F 04/28/18 07:00 Pulse 80 04/28/18 09:16 Resp 16 04/28/18 08:46 BP 122/66 04/28/18 07:00 Pulse Ox 93 L 04/28/18 07:00 Intake & Output 04/27/18 04/28/18 04/28/18 18:59 06:59 18:59 Intake Total 930 1600 400 Output Total 900 725 Balance 30 875 400 Weight 119.1 kg Intake: IV 900 Sodium Chloride 0.9% 1, 900 000 ml @ 100 mls/hr IV . Q10H [facility] Rx#:[id number] Intake, IV Titration 200 Amount Piperacillin-Tazobactam 3 200 .375 gm In Sodium Chloride 0.9% 100 ml @ 25 mls/hr IVPB Q8H [facility] Rx#: [id number] Oral 930 500 400 Output: Urine 900 725 Other: Voiding Method Indwelling Catheter Indwelling Catheter # Bowel Movements 1 - Exam Physical exam revealed a 72-year-old female, alert, oriented 3, Head: Atraumatic, normocephalic, moist mucous membranes . HEENT examination is grossly unremarkable. no JVD, no thyromegaly, no neck masses. Neck supple. Full range of motion. No adenopathy thyromegaly or neck vein distention. Cardiovascular examination reveals regular rhythm rate. S1-S2 normal. No S3 or S4. No discernible murmur noted. Lungs reveal clear breath sounds. Her sounds are equal bilaterally. No adventitious lung sounds including wheezes rhonchi or crackles. Abdomen soft bowel sounds are heard. No masses or tenderness.Abdominal exam revealed normal bowel sounds. The abdomen was soft, non-tender, and without masses, organomegaly, or appreciable enlargement of the abdominal aorta. Extremities are intact. No cyanosis clubbing. Small healed ulcer on the anterior surface of the right mid leg, there is trace edema lower extremities bilaterally. Pulses are diminished at the present. Skin is without rash or lesion. Neurologic examination is revealing normal mental status examination, alert oriented 3 today. Psychiatric: Normal mood, affect, and mental status examination basically normal today. - Labs CBC & Chem 7: 04/28/18 08:19 04/28/18 08:19 Labs: Abnormal Lab Results - Last 24 Hours (Table) 04/27/18 04/27/18 04/27/18 Range/Units 12:49 14:24 15:00 WBC 11.5 H (3.8-10.6) k/uL MCV 101.5 H (80.0-100.0) fL RDW 16.3 H (11.5-15.5) % Neutrophils # 9.7 H (1.3-7.7) k/uL Potassium (3.5-5.1) mmol/L Chloride (98-107) mmol/L Glucose (74-99) mg/dL POC Glucose (mg/dL) 286 H 315 H (75-99) mg/dL Stool Occult Blood (Negative) 04/27/18 04/27/18 04/27/18 Range/Units 15:00 16:57 19:46 WBC (3.8-10.6) k/uL MCV (80.0-100.0) fL RDW (11.5-15.5) % Neutrophils # (1.3-7.7) k/uL Potassium (3.5-5.1) mmol/L Chloride (98-107) mmol/L Glucose (74-99) mg/dL POC Glucose (mg/dL) 243 H 242 H (75-99) mg/dL Stool Occult Blood Positive H (Negative) 04/28/18 04/28/18 04/28/18 Range/Units 07:22 08:19 08:19 WBC (3.8-10.6) k/uL MCV 101.8 H (80.0-100.0) fL RDW 16.7 H (11.5-15.5) % Neutrophils # (1.3-7.7) k/uL Potassium 3.4 L (3.5-5.1) mmol/L Chloride 112 H (98-107) mmol/L Glucose 210 H (74-99) mg/dL POC Glucose (mg/dL) 160 H (75-99) mg/dL Stool Occult Blood (Negative) 04/28/18 Range/Units 12:17 WBC (3.8-10.6) k/uL MCV (80.0-100.0) fL RDW (11.5-15.5) % Neutrophils # (1.3-7.7) k/uL Potassium (3.5-5.1) mmol/L Chloride (98-107) mmol/L Glucose (74-99) mg/dL POC Glucose (mg/dL) 195 H (75-99) mg/dL Stool Occult Blood (Negative) Microbiology - Last 24 Hours (Table) 04/24/18 09:23 Blood Culture - Preliminary Blood No Growth after 96 hours 04/25/18 07:32 Gram Stain - Final Sputum Sputum Culture - Final Klebsiella pneumoniae Luann albicans Assessment and Plan Assessment: Impression: 1 acute sepsis and septic shock, most likely source is right upper lobe pneumonia, secondary to Klebsiella pneumoniae as shown in the sputum cultures 2 acute right upper lobe pneumonia secondary to Klebsiella pneumonia 3 morbid obesity, BMI of 48.8. 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 14 poor performance status. 15 acute metabolic encephalopathy resolved over the last 24 hours. Recommendation: Continue present antibiotics, consider discharge planning in the next 24 hours. Time with Patient: Less than 30
--- NOTE | 2018-04-28 16:09 | P.PN ---
Subjective this is a pleasant 72 years old female with past medical history of diabetes mellitus hyperlipidemia hypertension, DVT/PE, rheumatoid arthritis, hypothyroidism, COPD, chronic hypoxic respiratory failure on home oxygen.presents with dyspnea. Patient was found to be in severe sepsis and septic shock secondary to pneumonia.today patient she feels better no worsening dyspnea. No chest pain. she complains from constipation. Has a Blandon catheter. She still on oxygen therapyand she saturating 94% on 2 LWBC 13.4. Creatinine 0.6. Sugar is slightly elevated. 04/27/2018 Patient had an episode of bloody bowel movement today, without change in her vitals. Her hemoglobin remains stable at 13.2. However her occult blood in his stool is positive. Staff this but the stool also. Patient states she had similar episode about 2 weeks ago . patient today dose of xarelto was held. And we are going to check her hemoglobin tomorrow and if stable will might consider restarting it. GI consult is placed. Increase Protonix to twice a day. Discussed with the pulmonary team and they agreed to down great her Cortef from IV to by mouth 20 mg twice a day. Patient remains on levofloxacin. Patient denies chest pain. No dyspnea. She has a cough with phlegm. Terminal pain. No nausea vomiting. Patient states at home she uses oxygen at 3 L, currently is at 5 L. 04/28/2018 Patient is sitting on the bedside with breathing quietly. Denies dyspnea or chest pain. No abdominal pain, no nausea vomiting. No diarrhea. No more bleeding per rectum. No hemoptysis or hematemesis. (Table and hemoglobin is actually still normal and better than yesterday at 13.2. Her Xarelto was held yesterday for bleeding per rectum. We going to restart her anticoagulant Xarelto as she has history of 3 PEs in the past as patient telling me and the benefits more than risk of this point however her scar explained to the patient and she verbalized understanding and acceptance. Her sputum cultures positive for Klebsiella and kerri, she is currently on antibiotic. Lasted for physical therapy evaluation. CONSTITUTIONAL: No fever, no malaise, no fatigue. HEENT: No recent visual problems or hearing problems. Denied any sore throat. CARDIOVASCULAR: no syncope. PULMONARY: no hemoptysis. GASTROINTESTINAL: Normoactive bowel sounds. NEUROLOGICAL: No headaches, no weakness, no numbness. HEMATOLOGICAL: Denies any bleeding or petechiae. GENITOURINARY: Denies any burning micturition, frequency, or urgency. MUSCULOSKELETAL/RHEUMATOLOGICAL: Denies any joint pain, swelling, or any muscle pain. ENDOCRINE: Denies any polyuria or polydipsia. Objective - Vital Signs Vital signs: Vital Signs Temp 98.7 F 04/28/18 07:00 Pulse 80 04/28/18 15:52 Resp 16 04/28/18 15:52 BP 122/66 04/28/18 07:00 Pulse Ox 93 L 04/28/18 07:00 Intake & Output 04/27/18 04/28/18 04/28/18 18:59 06:59 18:59 Intake Total 930 1600 1750 Output Total 900 725 Balance 30 875 1750 Weight 119.1 kg Intake: IV 900 950 Levofloxacin 750Mg-D5w 150 Pmx 750 mg In Dextrose/ Water 1 150ml.bag @ 100 mls/hr IVPB DAILY [facility] Rx# :[id number] Piperacillin-Tazobactam 3 100 .375 gm In Sodium Chloride 0.9% 100 ml @ 25 mls/hr IVPB Q8H [facility] Rx#: [id number] Sodium Chloride 0.9% 1, 900 700 000 ml @ 100 mls/hr IV . Q10H [facility] Rx#:[id number] Intake, IV Titration 200 Amount Piperacillin-Tazobactam 3 200 .375 gm In Sodium Chloride 0.9% 100 ml @ 25 mls/hr IVPB Q8H [facility] Rx#: [id number] Oral 930 500 800 Output: Urine 900 725 Other: Voiding Method Indwelling Catheter Indwelling Catheter # Bowel Movements 1 - Exam GENERAL: The patient is alert and oriented x3, not in any acute distress. Well developed, well nourished. HEENT: Pupils are round and equally reacting to light. EOMI. No scleral icterus. No conjunctival pallor. Normocephalic, atraumatic. No pharyngeal erythema. No thyromegaly. CARDIOVASCULAR: S1 and S2 present. No murmurs, rubs, or gallops. -PULMONARY: Chest is clear to auscultation, no crackles. bilateral scattered wheezing ABDOMEN: Soft, nontender, nondistended, normoactive bowel sounds. No palpable organomegaly. MUSCULOSKELETAL: No joint swelling or deformity. EXTREMITIES: No cyanosis, clubbing, or pedal edema. NEUROLOGICAL: Gross neurological examination did not reveal any focal deficits. SKIN: No rashes. - Labs CBC & Chem 7: 04/28/18 08:19 04/28/18 08:19 Labs: Abnormal Lab Results - Last 24 Hours (Table) 04/27/18 04/27/18 04/28/18 Range/Units 16:57 19:46 07:22 MCV (80.0-100.0) fL RDW (11.5-15.5) % Potassium (3.5-5.1) mmol/L Chloride (98-107) mmol/L Glucose (74-99) mg/dL POC Glucose (mg/dL) 243 H 242 H 160 H (75-99) mg/dL 04/28/18 04/28/18 04/28/18 Range/Units 08:19 08:19 12:17 MCV 101.8 H (80.0-100.0) fL RDW 16.7 H (11.5-15.5) % Potassium 3.4 L (3.5-5.1) mmol/L Chloride 112 H (98-107) mmol/L Glucose 210 H (74-99) mg/dL POC Glucose (mg/dL) 195 H (75-99) mg/dL Microbiology - Last 24 Hours (Table) 04/24/18 09:23 Blood Culture - Preliminary Blood No Growth after 96 hours Assessment and Plan Assessment: status post septic shock and severe sepsis presumably on admission community acquired pneumonia Possible GI bleed history of COPD,, not in acute exacerbation History of PE/DVT on anticoagulation. Constipation History of hypothyroidism Hyperlipidemia History of gout Plan: this is a pleasant 72 years old female who presents with pneumonia. Pulmonary R following the case. Continue with IV antibiotic. Continue with a breathing treatment and oxygen therapy. Consult gastroenterology. Labs and medication were reviewed.. Continue same treatment. Continue with symptomatic treatment. Resume home medication. Monitor lytes and vitals. DVT and GI prophylaxis. Further recommendations of the clinical course of the patient DVT prophylaxis: xarelto GI Prophylaxis: Protonix Prognosis is guarded
[2018-04-28] MEDS: ASPIRIN 81 MG PO SCH (16:55)
[2018-04-28] MEDS: FERROUS SULFATE 325 MG TAB PO SCH (16:55)
[2018-04-28] MEDS: RIVAROXABAN 20 MG TAB PO SCH (16:55)
[2018-04-28] MEDS: ATORVASTATIN 40 MG TAB PO SCH (16:55)
[2018-04-28 17:15] LABS: Glucose,Whole Blood 186 mg/dL (75-99)
[2018-04-28 20:50] LABS: Glucose,Whole Blood 197 mg/dL (75-99)
[2018-04-28] MEDS: INSULIN DETEMIR 100 UNIT/ML 10 ML VIAL SQ SCH (20:53)
[2018-04-29] MEDS: PIPERACILLIN-TAZOBACTAM 3.375 GM in SODIUM CHLORIDE 0.9% 100 ML IVPB SCH ×2 (03:34→12:24)
[2018-04-29] MEDS: SODIUM CHLORIDE 0.9% 1,000 ML IV SCH ×2 (05:27→17:31)
[2018-04-29] MEDS: LEVOTHYROXINE 100 MCG TAB PO SCH (05:27)
--- NOTE | 2018-04-29 06:30 | PN ---
PROGRESS NOTE DATE OF SERVICE: 04/28/2018 REASON FOR FOLLOWUP: Klebsiella pneumonia. INTERVAL HISTORY: The patient is currently afebrile. She is breathing more comfortably. Denies having any chest pain or shortness of breath. Occasional cough. No nausea, no vomiting. No abdominal pain, no diarrhea. EXAMINATION: Blood pressure 135/74 with a pulse of 82, temperature 98.5. She is 92% on 4 L nasal cannula. General description is an elderly female up in the bed in no distress. Respiratory System: Unlabored breathing with decreased breath sounds in the bases. No wheeze. Heart: S1, S2. Regular rate and rhythm. LABS: Hemoglobin 13.2, white count 9.9 with a BUN of 9, creatinine 0.63. DIAGNOSTIC IMPRESSION AND PLAN: Klebsiella pneumoniae. The patient is currently responding to the Zosyn and Levaquin therapy. Plan will be to finish therapy with oral ciprofloxacin for the next 7-10 days to finish course of therapy. Continue supportive care. MMODL / LINN: [id number] /
[2018-04-29 07:11] LABS: Glucose,Whole Blood 179 mg/dL (75-99)
[2018-04-29] MEDS: DULoxetine HCL 30 MG CAPSULE.DR PO SCH ×2 (07:22→18:27)
[2018-04-29] MEDS: PANTOPRAZOLE 40 MG TABLET PO SCH (07:22)
[2018-04-29] MEDS: METOPROLOL TARTRATE 25 MG TAB PO SCH ×2 (07:22→18:20)
[2018-04-29] MEDS: ALLOPURINOL 100 MG TAB PO SCH (07:22)
--- NOTE | 2018-04-29 07:31 | XR ---
EXAMINATION TYPE: XR chest 1V portable DATE OF EXAM: 04/29/2018 HISTORY: Shortness of breath. COMPARISON: 04/26/2018 TECHNIQUE: Single view of the chest is submitted. FINDINGS: Demonstrated are scattered senescent parenchymal change. Continued reticulonodular infiltrate right upper lobe and right perihilar region. The heart is stable. Hilar and mediastinal structures are within normal limits. Degenerative changes are seen of the dorsal spine. IMPRESSION: 1. Continued reticulonodular infiltrate right upper lobe and right perihilar region.
[2018-04-29] MEDS: IPRATROPIUM-ALBUTEROL 3 ML NEB INHALATION SCH ×4 (07:48→20:50)
[2018-04-29 07:54] LABS: Anisocytosis Slight; Basophils % (A) 0 %; Eosinophils # (A) 0.2 k/uL (0-0.7); Eosinophils % (A) 2 %; HCT 44.4 % (34.0-46.0); HGB 13.6 gm/dL (11.4-16.0); Hypochromasia Slight; Lymphocytes # (A) 2.6 k/uL (1.0-4.8); Lymphocytes % (A) 32 %; MCH 31.4 pg (25.0-35.0); MCHC 30.7 g/dL (31.0-37.0); Macrocytosis Slight; Mean Platelet Volume 8.1; Monocytes # (A) 0.7 k/uL (0-1.0); Monocytes % (A) 9 %; Neutrophils # (A) 4.5 k/uL (1.3-7.7); Neutrophils % (A) 56 %; Platelet Count 283 k/uL (150-450); RBC 4.35 m/uL (3.80-5.40); RDW 16.6 % (11.5-15.5); WBC 8.1 k/uL (3.8-10.6)
[2018-04-29] MEDS: INSULIN ASPART 100 UNIT/ML 1 ML 10 ML VIAL SQ SCH ×4 (08:13→21:31)
[2018-04-29 08:25] LABS: Anion Gap 7 mmol/L; Blood Urea Nitrogen 8 mg/dL (7-17); Calcium 9.9 mg/dL (8.4-10.2); Carbon Dioxide 26 mmol/L (22-30); Chloride 109 mmol/L (98-107); Glucose 187 mg/dL (74-99); Magnesium 1.9 mg/dL (1.6-2.3); Phosphorus 3.2 mg/dL (2.5-4.5); Potassium 3.9 mmol/L (3.5-5.1); Sodium 142 mmol/L (137-145)
[2018-04-29] MEDS: SENNOSIDES-DOCUSATE SODIUM 1 EACH TAB PO SCH (09:51)
[2018-04-29] MEDS: HYDROCORTISONE 20 MG TAB PO SCH (09:51)
[2018-04-29] MEDS: LINAGLIPTIN 5 MG TABLET PO SCH (09:51)
[2018-04-29] MEDS: LEVOFLOXACIN 750 MG TAB PO SCH (09:51)
[2018-04-29] MEDS: COLLAGENASE 250 UNIT/GM OINTMENT 30 GM TUBE TOPICAL SCH (09:52)
[2018-04-29 11:41] LABS: Glucose,Whole Blood 139 mg/dL (75-99)
[2018-04-29] MEDS: NYSTATIN 100,000 UNIT/GM POWD 15 GM TOPICAL SCH ×2 (12:24→21:37)
[2018-04-29] MEDS: DICLOFENAC SODIUM GEL 100 GM TUBE TOPICAL SCH ×3 (12:24→21:33)
--- NOTE | 2018-04-29 15:43 | P.PN ---
Subjective Progress Note Date: 04/29/18 Principal diagnosis: Acute septic shock, right upper lobe pneumonia This is a 72-year-old female, familiar to my service, patient was admitted to [facility] about a month and a half ago with acute urinary tract infection and sepsis. Patient was seen at the time by Dr. Medellin. She was treated for acute urinary tract infection, sepsis and septic shock. Eventually the patient responded well to treatment, did not require any intubation or mechanical ventilation. This time the patient had a similar presentation, she presented with weakness, altered mental status according to the , and upon presentation she was noted to be hypotensive and did not respond to 2 L of fluid boluses, and she was placed on norepinephrine. Patient was admitted to the ICU, and I was asked to see her on consultation. Presently she is on her third liter of fluid bolus, she is on norepinephrine at 2 mcg/kg/m , her labs showed evidence of leukocytosis with WBC count of 24.9. Electrolytes were normal. Lactic acid on presentation was 2.5 follow-up lactic was 2.0. Troponin was borderline elevated at 0.037. Her urinalysis was noted to be relatively unremarkable except for small leukocyte esterase. WBC count in the urine was only 6. At any rate her chest x-ray did show evidence ofdisease mostly involving the right upper lobe. Patient was admitted to the ICU, I saw her on consultation, and I recommended antibiotics in the form of vancomycin and cefepime, I also recommended continuing to norepinephrine. Placed on the ICU protocol for sepsis and septic shock, patient declined having a central line placement according to the ER physician. She has adequate peripheral IV access at present, and the dose of norepinephrine seems to be minimal. Patient was reevaluated today on 04/25/2018, doing much better today. She is off norepinephrine, and the relatively hemodynamically stable. Patient has good urine output, and she seems to be alert and oriented 3. Her mean arterial pressure remains a bit marginal, labs were reviewed WBC count is 21.4 hemoglobin is 14.4. Electrolytes are normal, bicarb is normal renal profile is normal. Troponin 0.072 yesterday. Chest x-ray shows nodular infiltrates in the right upper lobe and in the right lower lobe, there is definite right hilar fullness, but she had a previous CT angiogram of the chest showing the fullness is mostly vascular nature related to prominent right pulmonary artery. This was done in the last few months. Patient remains on her usual meds, Antibiotics segura she remains on Zosyn and Levaquin. Cultures are pending. Reevaluated today on 04/26/2018, patient went briefly last night for a couple of hours on norepinephrine small dose, however she has been off norepinephrine now for the last 6 hours, seems to be hemodynamically stable, patient is sitting in bed, asymptomatic, feels great, she has good urine output, intact mental status, and her labs were all reviewed. Her WBC count is down to 13.4, hemoglobin is 13.1 electrolytes are normal renal profile is normal. Chest x- ray is showing improvement in her right upper lobe infiltrate. Continues to have right hilar fullness. Reevaluated today on 04/28/2018, patient is now on medical floor, doing well, relatively asymptomatic, in no form of distress. Labs were reviewed, her potassium is a bit low being corrected as per protocol. CBC is normal. Patient is hemodynamically stable, denies any active pulmonary symptoms. Her last chest x-ray was showing improvement in her right upper lobe pneumonia, and I plan to repeat the chest x-ray tomorrow, if continues to improve consider discharging the patient home on antibiotics for Klebsiella pneumonia infection. Patient is already on oral Cortef to replace her Solu-Cortef Reevaluated today on 04/29/2018, patient is doing well, asymptomatic, hemodynamically stable, not requiring any pressors, remains on Cortef which I have cut down to 10 mg twice a day, patient is wondering if she could be discharged home today or tomorrow. Overall the patient is doing great, her cultures were positive for Klebsiella pneumonia, and she is on adequate antibiotics. Patient couldn't be discharged likely home tomorrow on Levaquin. In the meantime I will cut down her Cortef dose to 10 mg twice a day. And this could be addressed on an outpatient basis. Blandon catheter was discontinued today. Her CBC is normal. And basic metabolic profile is normal. Objective - Vital Signs Vital signs: Vital Signs Temp 98.6 F 04/29/18 06:45 Pulse 77 04/29/18 12:08 Resp 14 04/29/18 06:45 BP 160/80 04/29/18 06:45 Pulse Ox 93 L 04/29/18 06:45 Intake & Output 04/28/18 04/29/18 04/29/18 18:59 06:59 18:59 Intake Total 1750 1370 Output Total 1800 1800 1300 Balance -50 -1800 70 Weight 119.1 kg 119.1 kg 119.1 kg Intake: IV 950 Levofloxacin 750Mg-D5w 150 Pmx 750 mg In Dextrose/ Water 1 150ml.bag @ 100 mls/hr IVPB DAILY [facility] Rx# :[id number] Piperacillin-Tazobactam 3 100 .375 gm In Sodium Chloride 0.9% 100 ml @ 25 mls/hr IVPB Q8H [facility] Rx#: [id number] Sodium Chloride 0.9% 1, 700 000 ml @ 100 mls/hr IV . Q10H [facility] Rx#:[id number] Intake, IV Titration 150 Amount Sodium Chloride 0.9% 1, 150 000 ml @ 100 mls/hr IV . Q10H [facility] Rx#:[id number] Oral 800 1220 Output: Urine 1800 1800 1300 Other: Voiding Method Indwelling Catheter Indwelling Catheter Indwelling Catheter # Bowel Movements 1 - Exam Physical exam revealed a 72-year-old female, in no form of respiratory distress. Very pleasant, asymptomatic. Head: Atraumatic, normocephalic, moist mucous membranes . HEENT examination is grossly unremarkable. no JVD, no thyromegaly, no neck masses. , No icterus. Neck supple. Full range of motion. No adenopathy thyromegaly or neck vein distention. Cardiovascular examination reveals regular rhythm rate. S1-S2 normal. No S3 or S4. No discernible murmur noted. Lungs reveal clear breath sounds. No crackles, no rhonchi and no wheezes. Abdomen soft bowel sounds are heard. No masses or tenderness.Abdominal exam revealed normal bowel sounds. Extremities are intact. No cyanosis clubbing. Small healed ulcer on the anterior surface of the right mid leg, there is trace edema lower extremities bilaterally. Pulses are diminished at the present. Skin is without rash or lesion. Neurologic examination is revealing normal mental status examination, alert oriented 3 today. Psychiatric: Normal mood, affect, and mental status examination basically normal today. - Labs CBC & Chem 7: 04/29/18 06:59 04/29/18 06:59 Labs: Abnormal Lab Results - Last 24 Hours (Table) 1104/28/18 04/29/18 Range/Units 17:12 20:38 06:59 MCV 102.0 H (80.0-100.0) fL MCHC 30.7 L (31.0-37.0) g/dL RDW 16.6 H (11.5-15.5) % Chloride (98-107) mmol/L Glucose (74-99) mg/dL POC Glucose (mg/dL) 186 H 197 H (75-99) mg/dL 04/29/18 04/29/18 04/29/18 Range/Units 06:59 07:09 11:36 MCV (80.0-100.0) fL MCHC (31.0-37.0) g/dL RDW (11.5-15.5) % Chloride 109 H (98-107) mmol/L Glucose 187 H (74-99) mg/dL POC Glucose (mg/dL) 179 H 139 H (75-99) mg/dL Microbiology - Last 24 Hours (Table) 04/24/18 09:23 Blood Culture - Preliminary Blood No Growth after 120 hours Assessment and Plan Assessment: Impression: 1 acute sepsis and septic shock, most likely source is right upper lobe pneumonia, secondary to Klebsiella pneumoniae as shown in the sputum cultures . Blood cultures remain negative 2 acute right upper lobe pneumonia secondary to Klebsiella pneumonia 3 morbid obesity, BMI of 48.8. 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 14 poor performance status. 15 acute metabolic encephalopathy resolved over the last 24 hours. Recommendation: Continue present antibiotics, consider discharging the patient home on Levaquin, and follow-up on outpatient basis. Time with Patient: Less than 30
[2018-04-29 17:45] LABS: Glucose,Whole Blood 207 mg/dL (75-99)
[2018-04-29] MEDS: RIVAROXABAN 20 MG TAB PO SCH (18:09)
[2018-04-29] MEDS: ASPIRIN 81 MG PO SCH (18:20)
[2018-04-29] MEDS: FERROUS SULFATE 325 MG TAB PO SCH (18:20)
[2018-04-29] MEDS: ATORVASTATIN 40 MG TAB PO SCH (18:20)
[2018-04-29 21:30] LABS: Glucose,Whole Blood 130 mg/dL (75-99)
[2018-04-29] MEDS: HYDROCORTISONE 10 MG TAB PO SCH (21:34)
[2018-04-29] MEDS: PREGABALIN 100 MG CAP PO SCH (21:34)
[2018-04-29] MEDS: INSULIN DETEMIR 100 UNIT/ML 10 ML VIAL SQ SCH (21:34)
[2018-04-29 21:50] VITALS: RESP 16
--- NOTE | 2018-04-29 23:45 | PN ---
PROGRESS NOTE DATE OF SERVICE: 04/29/2018. REASON FOR FOLLOWUP: Klebsiella pneumonia. INTERVAL HISTORY: The patient is afebrile, he is feeling better, breathing comfortably. The patient denies having any chest pain or shortness of breath. Occasional cough. No abdominal pain and no diarrhea. EXAMINATION: Blood pressure 119/73 with a pulse of 93, temperature 98.5, she is 95% on room air. GENERAL DESCRIPTION: An elderly female up in the bed in no distress. RESPIRATORY: Unlabored breathing with decreased breath sounds in the bases. No wheeze. HEART: S1, S2. Regular rate and rhythm. ABDOMEN: Soft, no tenderness. LABS: Hemoglobin is 13.6, white count 8.1 with a BUN of 8, creatinine 0.60. DIAGNOSTIC IMPRESSION AND PLAN: Patient with Klebsiella pneumoniae. The patient seemed to have shown clinical improvement on Zosyn and Levaquin. Plan to finish therapy with oral Cipro 500 b.i.d. for another week with close outpatient followup. Continue with supportive care. MMODL / IJN: [id number] /
--- NOTE | 2018-04-29 23:51 | P.PN ---
Subjective this is a pleasant 72 years old female with past medical history of diabetes mellitus hyperlipidemia hypertension, DVT/PE, rheumatoid arthritis, hypothyroidism, COPD, chronic hypoxic respiratory failure on home oxygen.presents with dyspnea. Patient was found to be in severe sepsis and septic shock secondary to pneumonia.today patient she feels better no worsening dyspnea. No chest pain. she complains from constipation. Has a Blandon catheter. She still on oxygen therapyand she saturating 94% on 2 LWBC 13.4. Creatinine 0.6. Sugar is slightly elevated. 04/27/2018 Patient had an episode of bloody bowel movement today, without change in her vitals. Her hemoglobin remains stable at 13.2. However her occult blood in his stool is positive. Staff this but the stool also. Patient states she had similar episode about 2 weeks ago . patient today dose of xarelto was held. And we are going to check her hemoglobin tomorrow and if stable will might consider restarting it. GI consult is placed. Increase Protonix to twice a day. Discussed with the pulmonary team and they agreed to down great her Cortef from IV to by mouth 20 mg twice a day. Patient remains on levofloxacin. Patient denies chest pain. No dyspnea. She has a cough with phlegm. Terminal pain. No nausea vomiting. Patient states at home she uses oxygen at 3 L, currently is at 5 L. 04/28/2018 Patient is sitting on the bedside with breathing quietly. Denies dyspnea or chest pain. No abdominal pain, no nausea vomiting. No diarrhea. No more bleeding per rectum. No hemoptysis or hematemesis. (Table and hemoglobin is actually still normal and better than yesterday at 13.2. Her Xarelto was held yesterday for bleeding per rectum. We going to restart her anticoagulant Xarelto as she has history of 3 PEs in the past as patient telling me and the benefits more than risk of this point however her scar explained to the patient and she verbalized understanding and acceptance. Her sputum cultures positive for Klebsiella and kerri, she is currently on antibiotic. Lasted for physical therapy evaluation. 04/29/2018 Patient breathing is significantly improved and patient looks close to her baseline. She is currently on 5 L via nasal cannula which we are going to lower it to 2-3 L of oxygen. No chest pain no coughing. However patient has some fresh blood in her stool. We restarted her xarelto yesterday. We'll keep monitoring her hemoglobin, currently her hemoglobin is stable at 13.6. Sugar is controlled and BMP was unremarkable. Her Cortef is lowered to 10 mg twice a day. Patient remains on levofloxacin and Zosyn. Patient states she has Klebsiella pneumonia and kerri in her sputum culture and repeat chest x-ray shows continue with infiltrates in the right upper and perihilar lobes. Per ID recommendation patient will be discharged on Cipro for 7-10 days Objective - Vital Signs Vital signs: Vital Signs Temp 98.6 F 04/29/18 06:45 Pulse 77 04/29/18 12:08 Resp 14 04/29/18 06:45 BP 160/80 04/29/18 06:45 Pulse Ox 93 L 04/29/18 06:45 Intake & Output 04/28/18 04/29/18 04/29/18 18:59 06:59 18:59 Intake Total 1750 1370 Output Total 1800 1800 1300 Balance -50 -1800 70 Weight 119.1 kg 119.1 kg 119.1 kg Intake: IV 950 Levofloxacin 750Mg-D5w 150 Pmx 750 mg In Dextrose/ Water 1 150ml.bag @ 100 mls/hr IVPB DAILY [facility] Rx# :[id number] Piperacillin-Tazobactam 3 100 .375 gm In Sodium Chloride 0.9% 100 ml @ 25 mls/hr IVPB Q8H [facility] Rx#: [id number] Sodium Chloride 0.9% 1, 700 000 ml @ 100 mls/hr IV . Q10H [facility] Rx#:[id number] Intake, IV Titration 150 Amount Sodium Chloride 0.9% 1, 150 000 ml @ 100 mls/hr IV . Q10H [facility] Rx#:[id number] Oral 800 1220 Output: Urine 1800 1800 1300 Other: Voiding Method Indwelling Catheter Indwelling Catheter Indwelling Catheter # Bowel Movements 1 - Exam GENERAL: The patient is alert and oriented x3, not in any acute distress. Well developed, well nourished. HEENT: Pupils are round and equally reacting to light. EOMI. No scleral icterus. No conjunctival pallor. Normocephalic, atraumatic. No pharyngeal erythema. No thyromegaly. CARDIOVASCULAR: S1 and S2 present. No murmurs, rubs, or gallops. -PULMONARY: Chest is clear to auscultation, no crackles. bilateral scattered wheezing ABDOMEN: Soft, nontender, nondistended, normoactive bowel sounds. No palpable organomegaly. MUSCULOSKELETAL: No joint swelling or deformity. EXTREMITIES: No cyanosis, clubbing, or pedal edema. NEUROLOGICAL: Gross neurological examination did not reveal any focal deficits. SKIN: No rashes. - Labs CBC & Chem 7: 04/29/18 06:59 04/29/18 06:59 Labs: Abnormal Lab Results - Last 24 Hours (Table) 04/28/18 04/28/18 04/29/18 Range/Units 17:12 20:38 06:59 MCV 102.0 H (80.0-100.0) fL MCHC 30.7 L (31.0-37.0) g/dL RDW 16.6 H (11.5-15.5) % Chloride (98-107) mmol/L Glucose (74-99) mg/dL POC Glucose (mg/dL) 186 H 197 H (75-99) mg/dL 04/29/18 04/29/18 04/29/18 Range/Units 06:59 07:09 11:36 MCV (80.0-100.0) fL MCHC (31.0-37.0) g/dL RDW (11.5-15.5) % Chloride 109 H (98-107) mmol/L Glucose 187 H (74-99) mg/dL POC Glucose (mg/dL) 179 H 139 H (75-99) mg/dL Microbiology - Last 24 Hours (Table) 04/24/18 09:23 Blood Culture - Preliminary Blood No Growth after 120 hours Assessment and Plan Assessment: status post septic shock and severe sepsis presumably on admission community acquired pneumonia Possible GI bleed history of COPD,, not in acute exacerbation History of PE/DVT on anticoagulation. Constipation History of hypothyroidism Hyperlipidemia History of gout Plan: this is a pleasant 72 years old female who presents with pneumonia. Pulmonary R following the case. Continue with IV antibiotic. Continue with a breathing treatment and oxygen therapy. Consult gastroenterology. Labs and medication were reviewed.. Continue same treatment. Continue with symptomatic treatment. Resume home medication. Monitor lytes and vitals. DVT and GI prophylaxis. Further recommendations of the clinical course of the patient DVT prophylaxis: xarelto GI Prophylaxis: Protonix Prognosis is guarded
[2018-04-29] MEDS: ACETAMINOPHEN TAB 325 MG TAB PO PRN (23:54)
--- NOTE | 2018-04-30 00:59 | P.CONS ---
History of Present Illness - Reason for Consult Consult date: 04/28/18 Bloody stools. - History of Present Illness The patient is a 72-year-old female who was hospitalized for a right upper lobe pneumonia secondary to Klebsiella. She was treated for sepsis and septic shock. The patient has been doing much better. She has history of Hodgkin's disease status post prior splenectomy. She also has history of 3 PE's and has been maintained on Xarelto. We are asked to see her because of bleeding per rectum. The patient indicated that she has had difficulties with her bowel movements in the hospital and was having constipation and was straining when she noted some bleeding per rectum. The bleeding was described as fresh. No other GI complaints. She had prior colonoscopies and EGDs. Her last EGD and colonoscopy was in April 2017 for investigation of anemia. Her EGD showed gastritis and the colonoscopy showed diverticulosis and internal hemorrhoids. The patient indicated that she is not interested in repeating any such workup of this problem at this time. No upper GI complaints or any hematemesis or melena. Review of Systems Constitutional: Denies fever, chills at this time or unintentional weight loss Neurologic: No history of headaches, double vision or sensory or motor changes Cardiopulmonary: No more chest pains, shortness of breath or palpitations Gastrointestinal: See present illness above Genitourinary: No hematuria, dysuria or frequency Skin: No rashes Endocrine: No polyuria or polydipsia Musculoskeletal: No joint complaints or swelling Hematologic: No bleeding tendency Psychiatric: No history of anxiety or depression Past Medical History Past Medical History: Cancer, COPD, Diabetes Mellitus, Deep Vein Thrombosis (DVT ), Hyperlipidemia, Hypertension, Pneumonia, Pulmonary Embolus (PE), Rheumatoid Arthritis (RA), Skin Disorder, Thyroid Disorder Additional Past Medical History / Comment(s): Morbid obesity, COPD, diabetes mellitus, remote history of DVT and pulmonary embolism, hypertension, hyperlipidemia, hypothyroidism, rheumatoid arthritis, history of fracture of the right lower extremity requiring surgery, right lower extremity wound that has healed, previous history of Hodgkin's lymphoma treated with a splenectomy and subsequent radiation therapy in 1993, chronic hypoxic respiratory failure patient on oxygen at 2 L overnight, 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 Past Anesthesia/Blood Transfusion Reactions: No Reported Reaction Past Psychological History: Depression Smoking Status: Former smoker Past Alcohol Use History: None Reported Past Drug Use History: None Reported - Past Family History Father Family Medical History: No Reported History Additional Family Medical History / Comment(s): Father was healthy and lived to be 88yrs old. Mother Family Medical History: No Reported History Additional Family Medical History / Comment(s): Pt states mother was healthy and lived to be 90yrs old. Son(s) Family Medical History: No Reported History Additional Family Medical History / Comment(s): She relates that her parents of old age her mother was about 90 father was 88, without sniffing and medical troubles. She does relate that her son committed suicide but her daughter is quite healthy. Medications and Allergies Home Medications Medication Instructions Recorded Confirmed Type DULoxetine HCL [Cymbalta] 30 mg PO BID@0800,1700 11/27/15 04/24/18 History rOPINIRole HCL [Requip] 3 mg PO HS@2100 11/27/15 04/24/18 History Rivaroxaban [Xarelto] 20 mg PO DAILY@1700 05/12/16 04/24/18 History Allopurinol [Zyloprim] 100 mg PO DAILY@0800 09/20/16 04/24/18 History Levothyroxine Sodium [Synthroid] 100 mcg PO DAILY 09/20/16 04/24/18 History Omeprazole [PriLOSEC] 20 mg PO DAILY@0700 09/20/16 04/24/18 History Atorvastatin [Lipitor] 40 mg PO DAILY@1700 05/02/17 04/24/18 History Acetaminophen Tab [Tylenol] 650 mg PO Q6H PRN 08/03/17 04/24/18 History Amino Acids/Protein Hydrolys 30 ml PO DAILY@1700 08/03/17 04/24/18 History [Pro-Stat Supplement] Budesonide/Formoterol Fumarate 2 puff INHALATION RT-BID PRN 08/03/17 04/24/18 History [Symbicort 80-4.5 Mcg Inhaler] Cholecalciferol (Vitamin D3) 4,000 unit PO DAILY@1700 08/03/17 04/24/18 History [Vitamin D3] Cyclobenzaprine [Flexeril] 5 mg PO TID PRN 08/03/17 04/24/18 History Ferrous Sulfate [Feosol] 325 mg PO AC-SUPPER 08/03/17 04/24/18 History Glucerna Shake 1 can PO HS 08/03/17 04/24/18 History L.acidoph,Paracasei, B.lactis 1 cap PO DAILY 08/03/17 04/24/18 History [Probiotic] Polyethylene Glycol 3350 [Miralax] 17 gm PO DAILY PRN 08/03/17 04/24/18 History Albuterol Inhaler [Ventolin Hfa 2 puff INHALATION RT-Q4H PRN 09/07/17 04/24/18 History Inhaler] Ondansetron [Zofran] 4 mg PO Q8HR PRN 09/07/17 04/24/18 History Sennosides/Docusate Sodium [Shayy 2 tab PO DAILY 09/07/17 04/24/18 History Colace] Aspirin EC [Ecotrin Low Dose] 81 mg PO DAILY@1700 09/13/17 04/24/18 History Miconazole Nitrate [Lotrimin AF 1 applic TOPICAL BID 09/13/17 04/24/18 History Powder] Cranberry 425 Cap 425 mg PO AC-SUPPER 11/24/17 04/24/18 History Diclofenac Sodium [Voltaren Gel] 2 gram TOPICAL TID 11/24/17 04/24/18 History Metoprolol Tartrate [Lopressor] 12.5 mg PO BID@0800,1700 11/24/17 04/24/18 History Collagenase [Santyl] 1 applic TOPICAL DAILY 02/20/18 04/24/18 History HYDROcodone/APAP 10-325MG [[place] 1 tab PO Q4HR PRN #14 tab 03/13/18 04/24/18 Rx 10-325] Pregabalin [Lyrica] 200 mg PO BID@0800,2100 #6 capsule 03/13/18 04/24/18 Rx Amoxic-Pot Clav 875-125Mg 1 tab PO Q12HR #9 tablet 04/14/18 04/24/18 Rx [Augmentin 875-125] Levofloxacin [Levaquin] 750 mg PO DAILY #5 tab 04/14/18 04/24/18 Rx predniSONE 40 mg PO DAILY 3 Days #6 tab 04/14/18 04/24/18 Rx clonazePAM [KlonoPIN] 0.25 mg PO BID PRN 04/24/18 04/24/18 History sitaGLIPtin [Januvia] 100 mg PO DAILY 04/24/18 04/24/18 History Allergies Allergy/AdvReac Type Severity Reaction Status Date / Time No Known Drug Allergies Allergy No known Verified 04/24/18 09:14 allergy Physical Exam Vitals: Vital Signs Temp Pulse Pulse Resp BP Pulse Ox 04/28/18 09:16 80 04/28/18 09:06 80 04/28/18 08:46 16 04/28/18 07:00 98.7 F 99 16 122/66 93 L 04/27/18 22:39 98.5 F 94 113/56 92 L 04/27/18 21:26 89 16 04/27/18 21:13 90 16 04/27/18 20:00 98.1 F 98 18 129/66 04/27/18 17:16 88 16 04/27/18 17:03 78 16 04/27/18 16:35 16 04/27/18 15:00 98.4 F 91 16 129/72 94 L Intake and Output 04/27/18 04/28/18 04/28/18 22:59 06:59 14:59 Intake Total 730 1100 400 Output Total 725 Balance 730 375 400 Intake: IV 900 Sodium Chloride 0.9% 1, 900 000 ml @ 100 mls/hr IV . Q10H [facility] Rx#:[id number] Intake, IV Titration 200 Amount Piperacillin-Tazobactam 3 200 .375 gm In Sodium Chloride 0.9% 100 ml @ 25 mls/hr IVPB Q8H [facility] Rx#: [id number] Oral 730 400 Output: Urine 725 Other: Voiding Method Indwelling Catheter Indwelling Catheter # Bowel Movements 1 Weight 119.1 kg General: Appeared stated age, morbidly obese, very pleasant in no acute distress Head and neck: Normocephalic and atraumatic, conjunctivae pink and sclerae not icteric, mucous membranes moist and pink. No masses in the neck or tracheal shifts Lungs: Clear to auscultation with no dullness to percussion Heart: Regular, no abnormal sounds, murmurs, gallops or friction Abdomen: Soft, no masses or organomegalies. No tenderness, bowel sounds present Extremities: No clubbing, cyanosis or edema Neurologic: Alert and oriented 3. Cranial nerves grossly intact. No gross sensory or motor abnormalities Results CBC & Chem 7: 04/29/18 06:59 04/29/18 06:59 Labs: Abnormal Lab Results - Last 24 Hours (Table) 04/27/18 04/27/18 04/27/18 Range/Units 14:24 15:00 15:00 WBC 11.5 H (3.8-10.6) k/uL MCV 101.5 H (80.0-100.0) fL RDW 16.3 H (11.5-15.5) % Neutrophils # 9.7 H (1.3-7.7) k/uL Potassium (3.5-5.1) mmol/L Chloride (98-107) mmol/L Glucose (74-99) mg/dL POC Glucose (mg/dL) 315 H (75-99) mg/dL Stool Occult Blood Positive H (Negative) 04/27/18 04/27/18 04/28/18 Range/Units 16:57 19:46 07:22 WBC (3.8-10.6) k/uL MCV (80.0-100.0) fL RDW (11.5-15.5) % Neutrophils # (1.3-7.7) k/uL Potassium (3.5-5.1) mmol/L Chloride (98-107) mmol/L Glucose (74-99) mg/dL POC Glucose (mg/dL) 243 H 242 H 160 H (75-99) mg/dL Stool Occult Blood (Negative) 04/28/18 04/28/18 04/28/18 Range/Units 08:19 08:19 12:17 WBC (3.8-10.6) k/uL MCV 101.8 H (80.0-100.0) fL RDW 16.7 H (11.5-15.5) % Neutrophils # (1.3-7.7) k/uL Potassium 3.4 L (3.5-5.1) mmol/L Chloride 112 H (98-107) mmol/L Glucose 210 H (74-99) mg/dL POC Glucose (mg/dL) 195 H (75-99) mg/dL Stool Occult Blood (Negative) Microbiology - Last 24 Hours (Table) 04/24/18 09:23 Blood Culture - Preliminary Blood No Growth after 96 hours 04/25/18 07:32 Gram Stain - Final Sputum Sputum Culture - Final Klebsiella pneumoniae Luann albicans Assessment and Plan Assessment: Rectal bleeding most likely secondary to hemorrhoids and constipation in a person on antiplatelet therapy for history of pulmonary embolization. Patient had colonoscopy in April 2017 that showed both diverticulosis and internal hemorrhoids. Her hemoglobin has been stable. Patient is not interested in any GI workup at this time. Plan: Agree with current management. Discussed dietary measures and local care for hemorrhoids. We will follow with you closely and monitor her blood counts. Further plans based on her course.
[2018-04-30] MEDS: LEVOTHYROXINE 100 MCG TAB PO SCH (05:41)
[2018-04-30 07:39] LABS: Glucose,Whole Blood 143 mg/dL (75-99)
[2018-04-30] MEDS: PANTOPRAZOLE 40 MG TABLET PO SCH (08:21)
[2018-04-30] MEDS: PREGABALIN 100 MG CAP PO SCH (08:21)
[2018-04-30] MEDS: SENNOSIDES-DOCUSATE SODIUM 1 EACH TAB PO SCH (08:21)
[2018-04-30] MEDS: LEVOFLOXACIN 750 MG TAB PO SCH (08:21)
[2018-04-30] MEDS: ALLOPURINOL 100 MG TAB PO SCH (08:21)
[2018-04-30] MEDS: METOPROLOL TARTRATE 25 MG TAB PO SCH (08:22)
[2018-04-30] MEDS: HYDROCORTISONE 10 MG TAB PO SCH (08:22)
[2018-04-30] MEDS: NYSTATIN 100,000 UNIT/GM POWD 15 GM TOPICAL SCH (08:23)
[2018-04-30] MEDS: LINAGLIPTIN 5 MG TABLET PO SCH (08:23)
[2018-04-30] MEDS: IPRATROPIUM-ALBUTEROL 3 ML NEB INHALATION SCH ×3 (08:43→15:19)
[2018-04-30 08:57] VITALS: BP 155/74; TEMP 98.2
[2018-04-30] MEDS: INSULIN ASPART 100 UNIT/ML 1 ML 10 ML VIAL SQ SCH ×2 (09:05→12:30)
[2018-04-30 11:52] LABS: Glucose,Whole Blood 171 mg/dL (75-99)
[2018-04-30 11:56] VITALS: PULSE 82
[2018-04-30] MEDS: DULoxetine HCL 30 MG CAPSULE.DR PO SCH (12:28)
[2018-04-30] MEDS: DICLOFENAC SODIUM GEL 100 GM TUBE TOPICAL SCH (12:28)
[2018-04-30] MEDS: COLLAGENASE 250 UNIT/GM OINTMENT 30 GM TUBE TOPICAL SCH (12:29)
--- NOTE | 2018-04-30 15:03 | P.PN ---
Subjective Progress Note Date: 04/30/18 Principal diagnosis: Acute septic shock, right upper lobe pneumonia This is a 72-year-old female, familiar to my service, patient was admitted to [facility] about a month and a half ago with acute urinary tract infection and sepsis. Patient was seen at the time by Dr. Medellin. She was treated for acute urinary tract infection, sepsis and septic shock. Eventually the patient responded well to treatment, did not require any intubation or mechanical ventilation. This time the patient had a similar presentation, she presented with weakness, altered mental status according to the , and upon presentation she was noted to be hypotensive and did not respond to 2 L of fluid boluses, and she was placed on norepinephrine. Patient was admitted to the ICU, and I was asked to see her on consultation. Presently she is on her third liter of fluid bolus, she is on norepinephrine at 2 mcg/kg/m , her labs showed evidence of leukocytosis with WBC count of 24.9. Electrolytes were normal. Lactic acid on presentation was 2.5 follow-up lactic was 2.0. Troponin was borderline elevated at 0.037. Her urinalysis was noted to be relatively unremarkable except for small leukocyte esterase. WBC count in the urine was only 6. At any rate her chest x-ray did show evidence ofdisease mostly involving the right upper lobe. Patient was admitted to the ICU, I saw her on consultation, and I recommended antibiotics in the form of vancomycin and cefepime, I also recommended continuing to norepinephrine. Placed on the ICU protocol for sepsis and septic shock, patient declined having a central line placement according to the ER physician. She has adequate peripheral IV access at present, and the dose of norepinephrine seems to be minimal. Patient was reevaluated today on 04/25/2018, doing much better today. She is off norepinephrine, and the relatively hemodynamically stable. Patient has good urine output, and she seems to be alert and oriented 3. Her mean arterial pressure remains a bit marginal, labs were reviewed WBC count is 21.4 hemoglobin is 14.4. Electrolytes are normal, bicarb is normal renal profile is normal. Troponin 0.072 yesterday. Chest x-ray shows nodular infiltrates in the right upper lobe and in the right lower lobe, there is definite right hilar fullness, but she had a previous CT angiogram of the chest showing the fullness is mostly vascular nature related to prominent right pulmonary artery. This was done in the last few months. Patient remains on her usual meds, Antibiotics segura she remains on Zosyn and Levaquin. Cultures are pending. Reevaluated today on 04/26/2018, patient went briefly last night for a couple of hours on norepinephrine small dose, however she has been off norepinephrine now for the last 6 hours, seems to be hemodynamically stable, patient is sitting in bed, asymptomatic, feels great, she has good urine output, intact mental status, and her labs were all reviewed. Her WBC count is down to 13.4, hemoglobin is 13.1 electrolytes are normal renal profile is normal. Chest x- ray is showing improvement in her right upper lobe infiltrate. Continues to have right hilar fullness. Reevaluated today on 04/28/2018, patient is now on medical floor, doing well, relatively asymptomatic, in no form of distress. Labs were reviewed, her potassium is a bit low being corrected as per protocol. CBC is normal. Patient is hemodynamically stable, denies any active pulmonary symptoms. Her last chest x-ray was showing improvement in her right upper lobe pneumonia, and I plan to repeat the chest x-ray tomorrow, if continues to improve consider discharging the patient home on antibiotics for Klebsiella pneumonia infection. Patient is already on oral Cortef to replace her Solu-Cortef Reevaluated today on 04/29/2018, patient is doing well, asymptomatic, hemodynamically stable, not requiring any pressors, remains on Cortef which I have cut down to 10 mg twice a day, patient is wondering if she could be discharged home today or tomorrow. Overall the patient is doing great, her cultures were positive for Klebsiella pneumonia, and she is on adequate antibiotics. Patient couldn't be discharged likely home tomorrow on Levaquin. In the meantime I will cut down her Cortef dose to 10 mg twice a day. And this could be addressed on an outpatient basis. Blandon catheter was discontinued today. Her CBC is normal. And basic metabolic profile is normal. The patient is seen again today 04/30/2018 in follow-up on the regular medical floor. She is awake and alert in no acute distress. She denies any shortness of breath, cough or congestion. No fever chills or night sweats. Her sputum culture was positive for Klebsiella pneumoniae. He is maintaining good O2 saturations in the low 90s on 2 L/m per nasal cannula. She has been afebrile. Hemodynamically stable. She has been maintained on bronchodilators and currently on Levaquin. Objective - Vital Signs Vital signs: Vital Signs Temp 98.2 F 04/30/18 07:00 Pulse 82 04/30/18 11:56 Resp 16 04/30/18 07:00 BP 155/74 04/30/18 07:00 Pulse Ox 90 L 04/30/18 08:45 Intake & Output 04/29/18 04/30/18 04/30/18 18:59 06:59 18:59 Intake Total 1370 1000 1250 Output Total 2100 500 Balance -730 1000 750 Weight 119.1 kg Intake: IV 1000 650 Piperacillin-Tazobactam 3 50 .375 gm In Sodium Chloride 0.9% 100 ml @ 25 mls/hr IVPB Q8H [facility] Rx#: [id number] Sodium Chloride 0.9% 1, 1000 600 000 ml @ 100 mls/hr IV . Q10H [facility] Rx#:[id number] Intake, IV Titration 150 Amount Sodium Chloride 0.9% 1, 150 000 ml @ 100 mls/hr IV . Q10H [facility] Rx#:[id number] Oral 1220 600 Output: Urine 2100 500 Uretheral (Blandon) 800 Other: Voiding Method Indwelling Catheter # Voids 2 # Bowel Movements 3 - Exam Physical exam revealed a 72-year-old female, in no form of respiratory distress. Very pleasant, asymptomatic. Head: Atraumatic, normocephalic, moist mucous membranes . HEENT examination is grossly unremarkable. no JVD, no thyromegaly, no neck masses. , No icterus. Neck supple. Full range of motion. No adenopathy thyromegaly or neck vein distention. Cardiovascular examination reveals regular rhythm rate. S1-S2 normal. No S3 or S4. No discernible murmur noted. Lungs reveal clear breath sounds. No crackles, no rhonchi and no wheezes. Abdomen soft bowel sounds are heard. No masses or tenderness.Abdominal exam revealed normal bowel sounds. Extremities are intact. No cyanosis clubbing. Small healed ulcer on the anterior surface of the right mid leg, there is trace edema lower extremities bilaterally. Pulses are diminished at the present. Skin is without rash or lesion. Neurologic examination is revealing normal mental status examination, alert oriented 3 today. Psychiatric: Normal mood, affect, and mental status examination basically normal today. - Labs CBC & Chem 7: 04/29/18 06:59 04/29/18 06:59 Labs: Abnormal Lab Results - Last 24 Hours (Table) 04/29/18 04/29/18 04/30/18 Range/Units 17:43 21:29 07:37 POC Glucose (mg/dL) 207 H 130 H 143 H (75-99) mg/dL 04/30/18 Range/Units 11:39 POC Glucose (mg/dL) 171 H (75-99) mg/dL Microbiology - Last 24 Hours (Table) 04/24/18 09:23 Blood Culture - Final Blood No Growth after 144 hours Assessment and Plan Assessment: Impression: 1 acute sepsis and septic shock, most likely source is right upper lobe pneumonia, secondary to Klebsiella pneumoniae as shown in the sputum cultures . Blood cultures remain negative 2 acute right upper lobe pneumonia secondary to Klebsiella pneumonia 3 morbid obesity, BMI of 48.8. 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 14 poor performance status. 15 acute metabolic encephalopathy resolved over the last 24 hours. Recommendation: The patient was seen and evaluated by Dr. Elliott. She is stable for discharge from the pulmonary standpoint. She'll complete her course of Levaquin. Continue bronchodilators. Follow-up in our office in 1 week's time. We'll repeat a chest x-ray then. She is however encouraged to call sooner with any recurrence of symptoms or other questions or concerns. I, the cosigning physician, performed a history & physical examination of the patient. Lungs sounds are clear. Maintaining good O2 saturations in the 90s on 2 L/m per nasal cannula. I discussed the assessment and plan of care with my nurse practitioner, Ayana Nova. I attest to the above note as dictated by her.
--- NOTE | 2018-04-30 16:28 | PN ---
PROGRESS NOTE DATE OF SERVICE: 04/30/2018. REASON FOR FOLLOWUP: Klebsiella pneumonia. INTERVAL HISTORY: The patient is afebrile. She is breathing comfortably. Denies significant chest pain or shortness of breath. Occasional cough. No abdominal pain. No diarrhea. EXAMINATION: Blood pressure 155/74 with a pulse of 82, temperature 98.2. She is 92% on room air. General description is an elderly female up in the bed in no distress. Respiratory system: Unlabored breathing. Decreased breath sounds in the bases. No wheeze. Heart S1, S2. Regular rate and rhythm. ABDOMEN: Soft, no tenderness. LABS: Hemoglobin is 13.6, white count 8.1. BUN of 8, creatinine 0.60. DIAGNOSTIC IMPRESSION AND PLAN: Patient with Klebsiella pneumoniae. Patient did overall have improvement on Zosyn. Currently on Levaquin that will be transitioned to oral Cipro 500 twice a day for another 5 days to finish a 10 day course of therapy because of her pneumonia abnormality. Continue supportive care. MMODL / IJN: [id number] /
== END 2018-04-30 15:25 | disposition home health service (06) | DRG 871 ==
LOC: EC 09:03 → 3SCARD 11:12 → 2SICU 14:15 → 4SSUR 04-26 09:44
PROVIDERS: ADMIT Hospitalist; ATTEND Hospitalist
DX: A41.50 Gram-negative sepsis, unspecified (principal); G93.41 Metabolic encephalopathy; J15.6 Pneumonia due to other Gram-negative bacteria; R65.21 Severe sepsis with septic shock; J44.0 Chronic obstructive pulmonary disease with (acute) lower respiratory infection; J90 Pleural effusion, not elsewhere classified; J96.11 Chronic respiratory failure with hypoxia; Z68.42 Body mass index [BMI] 45.0-49.9, adult; K92.2 Gastrointestinal hemorrhage, unspecified; B96.1 Klebsiella pneumoniae [K. pneumoniae] as the cause of diseases classified elsewhere; E03.9 Hypothyroidism, unspecified; E11.42 Type 2 diabetes mellitus with diabetic polyneuropathy; E11.69 Type 2 diabetes mellitus with other specified complication; E66.01 Morbid (severe) obesity due to excess calories; E78.5 Hyperlipidemia, unspecified; F32.9 Major depressive disorder, single episode, unspecified; G25.81 Restless legs syndrome; I10 Essential (primary) hypertension; K59.00 Constipation, unspecified; M06.9 Rheumatoid arthritis, unspecified; M19.90 Unspecified osteoarthritis, unspecified site; Z79.01 Long term (current) use of anticoagulants; Z79.51 Long term (current) use of inhaled steroids; Z79.82 Long term (current) use of aspirin; Z79.84 Long term (current) use of oral hypoglycemic drugs; Z79.899 Other long term (current) drug therapy; Z85.71 Personal history of Hodgkin lymphoma; Z86.711 Personal history of pulmonary embolism; Z86.718 Personal history of other venous thrombosis and embolism; Z87.440 Personal history of urinary (tract) infections; Z87.891 Personal history of nicotine dependence; Z90.81 Acquired absence of spleen; Z92.3 Personal history of irradiation; Z96.651 Presence of right artificial knee joint; Z99.3 Dependence on wheelchair; Z99.81 Dependence on supplemental oxygen; Z79.891 Long term (current) use of opiate analgesic; Z90.49 Acquired absence of other specified parts of digestive tract; Z79.890 Hormone replacement therapy
CPT/HCPCS: 36415; 71045; 71046; 80048; 80053; 81001; 82272; 82550; 82553; 83036; 83605; 83735; 84100; 84132; 84484; 85025; 85610; 85730; 87040; 87070; 87077; 87086; 87186; 87205; 87502; 93005; 94640; 94760; 96365; 96367; 99291

== ENCOUNTER → 2018-07-26 | Outpatient (CLI) | payer MEDICARE ==
--- NOTE | 2018-07-27 10:21 | MM ---
Reason for exam: screening (asymptomatic). Last mammogram was performed 3 years and 4 months ago. History: Patient is postmenopausal and history of other cancer. Physical Findings: A clinical breast exam by your physician is recommended on an annual basis and results should be correlated with mammographic findings. MG Screening Mammo w CAD Bilateral CC and MLO view(s) were taken. Prior study comparison: March 30, 2015, mammogram, performed at [facility]. March 27, 2014, mammogram, performed at [facility]. There are scattered fibroglandular densities. Benign calcifications in the left breast. No suspicious abnormality. ASSESSMENT: Benign, BI-RAD 2 RECOMMENDATION: Routine screening mammogram of both breasts in 1 year.
== END | disposition home or self-care (01) ==
LOC: RADMAMWWP 10:38
PROVIDERS: ATTEND Family Medicine
DX: Z12.31 Encounter for screening mammogram for malignant neoplasm of breast (principal)
CPT/HCPCS: 77067